=== PATIENT | male | born 1955 | race Caucasian/White ===

== ENCOUNTER 2016-06-24 09:59 | Inpatient (IN) | payer OTHER ==
--- NOTE | 2016-06-24 10:19 | PDOC ---
History of Present Illness - General History Source: Patient Exam Limitations: No Limitations - History of Present Illness Initial Comments: 06/24/16 10:30 The patient is a 60 year old male, with a significant past medical history of DM , HTN, hyperlipidemia, a-fib (on xarelto), CHF, COPD, sleep apnea, and pancreatitis who was sent by his PCP to the emergency department for ongoing chest pain for the past week. The patient ranks his pain a 6/10 in pain intensity. The patient reports his pain is getting progressively worse since its original onset. He also notes feeling short of breath which often gets worse when he ambulates or with much activity. He denies fever, chills, headache and dizziness. Allergies: NKA Social History: Current everyday smoker. Denies EtOH use and drug use. PCP: CARD: <Duane Patel - Last Filed: 06/24/16 13:49> <Angella Gonzalez - Last Filed: 06/24/16 17:29> - General Chief Complaint: Chest Pain Stated Complaint: CHEST PAIN (PCP SENT) Time Seen by Provider: 06/24/16 10:17 Past History <Duane Patel - Last Filed: 06/24/16 13:49> - Past Medical History Anemia: No Asthma: No Cancer: No Cardiac Disorders: Yes (Yes; A-Fib) CVA: No COPD: Yes CHF: No Dementia: No Diabetes: Yes GI Disorders: Yes (gasrtis) Disorders: No HTN: Yes Hypercholesterolemia: Yes Liver Disease: No Seizures: No Thyroid Disease: No - Surgical History Abdominal Surgery: No Appendectomy: No Cardiac Surgery: Yes (Angio-plasty) Cholecystectomy: No Lung Surgery: No Neurologic Surgery: No Orthopedic Surgery: Yes (both feet bone removal) - Immunization History Immunization Up to Date: Yes - Psycho/Social/Smoking Cessation Hx Anxiety: No Suicidal Ideation: No Smoking Status: No Smoking History: Current every day smoker Have you smoked in the past 12 months: Yes Number of Cigarettes Smoked Daily: 18 If you are a former smoker, when did you quit?: On Chantix Information on smoking cessation initiated: Yes 'Breaking Loose' booklet given: 06/24/16 Hx Alcohol Use: No Drug/Substance Use Hx: No Substance Use Type: None Hx Substance Use Treatment: No <Angella Gonzalez - Last Filed: 06/24/16 17:29> - Past Medical History Allergies/Adverse Reactions: Allergies Allergy/AdvReac Type Severity Reaction Status Date / Time No Known Allergies Allergy Verified 06/24/16 10:03 Home Medications: Ambulatory Orders Atorvastatin Ca [Lipitor] 20 mg PO HS 07/28/13 Bupropion HCl [Wellbutrin Xl -] 150 mg PO DAILY 07/28/13 Pantoprazole Sodium [Protonix] 40 mg PO DAILY 07/28/13 Ranolazine [Ranexa -] 1,000 mg PO BID 07/28/13 Rivaroxaban [Xarelto -] 20 mg PO DAILY 07/28/13 Salmeterol/Fluticasone [Advair 250Mcg/50Mcg -] 1 inh PO DAILY 07/28/13 Sotalol HCl [Sotalol] 80 mg PO BID 07/28/13 Tamsulosin HCl 0.4 mg PO DAILY 07/28/13 Trazodone HCl [Desyrel -] 50 mg PO HS 07/28/13 Clobetasol Prop 0.05% Tp Oint [Temovate (Nf)] 60 gm NR DAILY 09/01/14 Insulin Glargine,Hum.rec.anlog [Lantus Solostar PEN -] 50 units SQ AM 09/01/14 Amlodipine Bes/Olmesartan Med [Yamil 5-40 mg Tablet] 1 each PO DAILY 03/15/15 Glipizide/Metformin HCl [Glipizide-Metformin 5-500 mg] 1 each PO TID 03/15/15 Potassium Chloride [K-Dur] 20 meq PO DAILY 03/15/15 Triamcinolone 0.1% Cream [Aristocort] 0 gm TP ASDIR 03/15/15 Valacyclovir HCl [Valtrex -] 500 mg PO ASDIR 03/15/15 Budesonide/Formeterol Fumarate [SYMBICORT 160/4.5mcg -] 2 inh PO BID 06/24/16 Insulin Lispro Protamin/Lispro [Humalog Mix 50-50 Kwikpen] 15 unit SQ TID Review of Systems - Review of Systems Able to Perform ROS?: Yes Comments:: 06/24/16 10:31 GENERAL/CONSTITUTIONAL: No fever or chills. No weakness. HEAD, EYES, EARS, NOSE AND THROAT: No change in vision. No ear pain or discharge. No sore throat. CARDIOVASCULAR: Yes: chest pain and shortness of breath. RESPIRATORY: No cough, wheezing, or hemoptysis. GASTROINTESTINAL: No nausea, vomiting, diarrhea or constipation. GENITOURINARY: No dysuria, frequency, or change in urination. MUSCULOSKELETAL: No joint or muscle swelling or pain. No neck or back pain. SKIN: No rash NEUROLOGIC: No headache, vertigo, loss of consciousness, or change in strength/ sensation. ENDOCRINE: No increased thirst. No abnormal weight change. HEMATOLOGIC/LYMPHATIC: No anemia, easy bleeding, or history of blood clots. ALLERGIC/IMMUNOLOGIC: No hives or skin allergy. <Duane Patel - Last Filed: 06/24/16 13:49> *Physical Exam - Vital Signs Last Vital Signs Temp Pulse Resp BP Pulse Ox 97.6 F 67 18 155/83 96 06/24/16 10:04 06/24/16 10:04 06/24/16 10:04 06/24/16 10:04 06/24/16 10:04 - Physical Exam Comments: 06/24/16 10:31 GENERAL: Obese. Awake, alert, and fully oriented, in no acute distress HEAD: No signs of trauma EYES: PERRLA, EOMI, sclera anicteric, conjunctiva clear ENT: Auricles normal inspection, hearing grossly normal, nares patent, oropharynx clear without exudates. Moist mucosa NECK: Normal ROM, supple, no lymphadenopathy, JVD, or masses LUNGS: Breath sounds equal, clear to auscultation bilaterally. No wheezes, and no crackles HEART: Regular rate and rhythm, normal S1 and S2, no murmurs, rubs or gallops ABDOMEN: Soft, nontender, normoactive bowel sounds. No guarding, no rebound. No masses EXTREMITIES: Normal range of motion, no edema. No clubbing or cyanosis. No cords, erythema, or tenderness NEUROLOGICAL: Cranial nerves II through XII grossly intact. Normal speech, normal gait SKIN: Warm, Dry, normal turgor, no rashes or lesions noted. <Duane Patel - Last Filed: 06/24/16 13:49> - Vital Signs Last Vital Signs Temp Pulse Resp BP Pulse Ox 97.6 F 67 18 155/83 96 06/24/16 10:04 06/24/16 10:04 06/24/16 10:04 06/24/16 10:04 06/24/16 10:04 <Angella Gonzalez - Last Filed: 06/24/16 17:29> ED Treatment Course - LABORATORY CBC & Chemistry Diagram: 06/24/16 10:29 06/24/16 10:29 - RADIOLOGY Radiograph Interpretation: 06/24/16 13:49 CHEST X-RAY impressions reported by : No infiltrates or edema in the lungs-no acute changes noted. <Duane Patel - Last Filed: 06/24/16 13:49> - LABORATORY CBC & Chemistry Diagram: 06/24/16 10:29 06/24/16 10:29 - RADIOLOGY Radiology Studies Ordered: Category Date Time Status CHEST X-RAY PORTABLE* [RAD] Stat Radiology 06/24/16 10:18 Ordered <Angella Gonzalez - Last Filed: 06/24/16 17:29> Medical Decision Making - Medical Decision Making 06/24/16 11:37 Call made to , awaiting call back. 06/24/16 11:41 Call back from , case discussed. 06/24/16 11:41 Call made to will call back. 06/24/16 11:43 Call back from , case discussed. <Duane Patel - Last Filed: 06/24/16 13:49> - Medical Decision Making D/w Dr. High, will evaluate. D/w Dr. Garza, who recommended admission. Dr. Tan will admit for Dr. Raza. <Angella Gonzalez - Last Filed: 06/24/16 17:29> *DC/Admit/Observation/Transfer - Attestations Scribe Attestion: 06/24/16 10:31 Documentation prepared by Duane Patel, acting as healthcare or medical for Angella Gonzalez MD. <Duane Patel - Last Filed: 06/24/16 13:49> - Discharge Dispostion Admit: Yes <Angella Gonzalez - Last Filed: 06/24/16 17:29> Diagnosis at time of Disposition: Chest pain Qualifiers: Chest pain type: unspecified Qualified Code(s): R07.9 - Chest pain, unspecified - Discharge Dispostion Condition at time of disposition: Stable - Referrals
[2016-06-24 10:48] LABS: BASOPHIL 0.9 % (0-2.0); EOSINOPHIL 3.8 % (0-4.5); MCH 31.7 pg (25.7-33.7); MCHC 34.6 g/dl (32.0-35.9); MEAN CELL VOLUME 91.6 fl (80-96); MEAN PLT VOLUME 8.3 fl (7.5-11.1); NEUTROPHILS 61.9 % (42.8-82.8); PLATELET COUNT 192 K/MM3 (134-434); WHITE BLOOD COUNT 8.2 K/mm3 (4.0-10.0)
[2016-06-24 11:22] LABS: ALBUMIN 3.4 g/dl (3.4-5.0); ANION GAP 10 (8-16); CALCIUM 8.9 mg/dL (8.5-10.1); CO2 26 mmol/L (21-32); CREATININE 0.9 mg/dL (0.7-1.3); GLUCOSE,RANDOM 211 mg/dL (74-106); SGOT/AST 15 U/L (15-37); SGPT/ALT 28 U/L (12-78)
[2016-06-24 11:26] LABS: ALK PHOS 102 U/L (45-117); BILIRUBIN,TOTAL 0.4 mg/dL (0.2-1.0); TOT PROT 6.5 g/dl (6.4-8.2); TROPONIN I < 0.02 ng/ml (0.00-0.05)
[2016-06-24 11:48] LABS: INR 1.22 (0.82-1.09); PROTHROMBIN TIME (PATIENT) 13.5 SEC (9.98-11.88)
--- NOTE | 2016-06-24 11:54 | HP ---
Admitting History and Physical - Primary Care Physician PCP: Dirk Garza - Admission Chief Complaint: chest pressure History of Present Illness: The patient is a 60 year old male, with a significant past medical history of DM , HTN, hyperlipidemia, a-fib (on xarelto), CHF, COPD, sleep apnea, and pancreatitis who was sent by his PCP to the emergency department for ongoing chest pain for the past week. The patient ranks his pain a 6/10 in pain intensity. The patient reports his pain is getting progressively worse since its original onset. He also notes feeling short of breath which often gets worse when he ambulates or with much activity. He denies fever, chills, headache and dizziness. per patient he had things to take care of at home so did not come earlier to the ER he denies any nausea vomitting or tachyacardia or dizzines with chest pressure. Allergies: NKA Social History: Current everyday smoker. Denies EtOH use and drug use. PCP: CARD: History Source: Patient - Past Medical History Cardiovascular: Yes: AFIB, HTN, Hyperlipdemia Pulmonary: Yes: COPD Gastrointestinal: Yes: GERD Endocrine: Yes: Diabetes Mellitus - Smoking History Smoking history: Current every day smoker Have you smoked in the past 12 months: Yes Aproximately how many cigarettes per day: 18 If you are a former smoker, when did you quit?: On Chantix - Alcohol/Substance Use Hx Alcohol Use: No Home Medications - Allergies Allergies/Adverse Reactions: Allergies Allergy/AdvReac Type Severity Reaction Status Date / Time No Known Allergies Allergy Verified 06/24/16 10:03 - Home Medications Home Medications: Ambulatory Orders Atorvastatin Ca [Lipitor] 20 mg PO HS 07/28/13 Bupropion HCl [Wellbutrin Xl -] 150 mg PO DAILY 07/28/13 Pantoprazole Sodium [Protonix] 40 mg PO DAILY 07/28/13 Ranolazine [Ranexa -] 1,000 mg PO BID 07/28/13 Rivaroxaban [Xarelto -] 20 mg PO DAILY 07/28/13 Salmeterol/Fluticasone [Advair 250Mcg/50Mcg -] 1 inh PO DAILY 07/28/13 Sotalol HCl [Sotalol] 80 mg PO BID 07/28/13 Tamsulosin HCl 0.4 mg PO DAILY 07/28/13 Trazodone HCl [Desyrel -] 50 mg PO HS 07/28/13 Clobetasol Prop 0.05% Tp Oint [Temovate (Nf)] 60 gm NR DAILY 09/01/14 Insulin Glargine,Hum.rec.anlog [Lantus Solostar PEN -] 50 units SQ AM 09/01/14 Amlodipine Bes/Olmesartan Med [Yamil 5-40 mg Tablet] 1 each PO DAILY 03/15/15 Glipizide/Metformin HCl [Glipizide-Metformin 5-500 mg] 1 each PO TID 03/15/15 Potassium Chloride [K-Dur] 20 meq PO DAILY 03/15/15 Triamcinolone 0.1% Cream [Aristocort] 0 gm TP ASDIR 03/15/15 Valacyclovir HCl [Valtrex -] 500 mg PO ASDIR 03/15/15 Budesonide/Formeterol Fumarate [SYMBICORT 160/4.5mcg -] 2 inh PO BID 06/24/16 Insulin Lispro Protamin/Lispro [Humalog Mix 50-50 Kwikpen] 15 unit SQ TID Family Disease History - Family Disease History Family Disease History: CA: Father (gastric cancer) Review of Systems - Review of Systems Cardiovascular: reports: Chest Pain Physical Examination Vital Signs: Vital Signs Temperature 97.6 F 06/24/16 10:04 Pulse Rate 67 06/24/16 10:04 Respiratory Rate 18 06/24/16 10:04 Blood Pressure 155/83 06/24/16 10:04 O2 Sat by Pulse Oximetry (%) 96 06/24/16 10:04 Constitutional: Yes: Calm Neck: Yes: Trachea Midline Cardiovascular: Yes: Regular Rate and Rhythm, S1, S2 Respiratory: Yes: Wheezes Gastrointestinal: Yes: Soft, Abdomen, Obese Edema: Yes Neurological: Yes: Alert, Oriented Labs: CBC, BMP 06/24/16 10:29 06/24/16 10:29 Problem List - Problems (1) Chest pain Assessment/Plan: tele dr askew CE 3 sets echo will need stress test lipid panel Code(s): R07.9 - CHEST PAIN, UNSPECIFIED Qualifiers: Chest pain type: unspecified Qualified Code(s): R07.9 - Chest pain, unspecified (2) Diabetes Assessment/Plan: hga1c bgm insulin Code(s): E11.9 - TYPE 2 DIABETES MELLITUS WITHOUT COMPLICATIONS Qualifiers: Diabetes mellitus type: type 2 Diabetes mellitus complication status: with hyperglycemia Qualified Code(s): E10.65 - Type 1 diabetes mellitus with hyperglycemia (3) Cough Assessment/Plan: nebulizer robuttisin advair Code(s): R05 - COUGH (4) Depression Assessment/Plan: trazadone wellbutrin Code(s): F32.9 - MAJOR DEPRESSIVE DISORDER, SINGLE EPISODE, UNSPECIFIED (5) BPH (benign prostatic hyperplasia) Assessment/Plan: flomax Code(s): N40.0 - BENIGN PROSTATIC HYPERPLASIA WITHOUT LOWER URINRY TRACT SYMP
[2016-06-24] MEDS ORDERED: guaiFENesin/D-METHORPHAN HB 10 ML UNIT-DOSE CUPS PO PRN (12:32)
[2016-06-24] MEDS ORDERED: ALBUTEROL SO4 0.083% IH SOL 2.5 MG/3 ML VIAL.NEB. NEB PRN (12:32)
[2016-06-24] MEDS: predniSONE 20 MG TABLET (UD) PO SCH (13:21)
--- NOTE | 2016-06-24 15:15 | CON.CARD ---
Consult Consult Specialty:: Cardiology Referred by:: Dr. Gonzalez (ER) Reason for Consultation:: Cardiac evaluation - History of Present Illness Chief Complaint: Chest pain History of Present Illness: Patient is a 60 year old male who is well known to me with underlying history of CAD - non-obstructive, HT, hypercholesterolemia, type 2 diabetes mellitus, paroxysmal atrial fibrillation on Xarelto and history of obstructive sleep apnea. He presents with intermittent chest pressure in left substermal chest wall without radiation of pain. He denies shortness of breath or palpitation. He denies paroxysmal nocturnal dyspnea or orthopnea. Denies fever or chills. Denies headache or lightheadedness. Patient has had cardiac work up in the office which will be reviewed. Cardiology consultation was called for further evaluation. - History Source History Provided By: Patient, Medical Record Limitations to Obtaining History: No Limitations - Past Medical History Cardio/Vascular: Yes: AFIB, CAD (Non-obstructive), HTN, Hyperlipdemia Pulmonary: Yes: COPD, Sleep Apnea Gastrointestinal: Yes: GERD Endocrine: Yes: Diabetes Mellitus - Past Surgical History Past Surgical History: Yes: Tonsillectomy Additional Surgical History: Surgery for deviated septum. Surgery on both feet - Alcohol/Substance Use Hx Alcohol Use: Yes - Smoking History Smoking history: Current every day smoker Have you smoked in the past 12 months: Yes Aproximately how many cigarettes per day: 18 If you are a former smoker, when did you quit?: Previously took Chantix Home Medications - Allergies Allergies/Adverse Reactions: Allergies Allergy/AdvReac Type Severity Reaction Status Date / Time No Known Allergies Allergy Verified 06/24/16 10:03 - Home Medications Home Medications: Ambulatory Orders Atorvastatin Ca [Lipitor] 20 mg PO HS 07/28/13 Bupropion HCl [Wellbutrin Xl -] 150 mg PO DAILY 07/28/13 Pantoprazole Sodium [Protonix] 40 mg PO DAILY 07/28/13 Ranolazine [Ranexa -] 1,000 mg PO BID 07/28/13 Rivaroxaban [Xarelto -] 20 mg PO DAILY 07/28/13 Salmeterol/Fluticasone [Advair 250Mcg/50Mcg -] 1 inh PO DAILY 07/28/13 Sotalol HCl [Sotalol] 80 mg PO BID 07/28/13 Tamsulosin HCl 0.4 mg PO DAILY 07/28/13 Trazodone HCl [Desyrel -] 50 mg PO HS 07/28/13 Clobetasol Prop 0.05% Tp Oint [Temovate (Nf)] 60 gm NR DAILY 09/01/14 Insulin Glargine,Hum.rec.anlog [Lantus Solostar PEN -] 50 units SQ AM 09/01/14 Amlodipine Bes/Olmesartan Med [Yamil 5-40 mg Tablet] 1 each PO DAILY 03/15/15 Glipizide/Metformin HCl [Glipizide-Metformin 5-500 mg] 1 each PO TID 03/15/15 Potassium Chloride [K-Dur] 20 meq PO DAILY 03/15/15 Triamcinolone 0.1% Cream [Aristocort] 0 gm TP ASDIR 03/15/15 Valacyclovir HCl [Valtrex -] 500 mg PO ASDIR 03/15/15 Budesonide/Formeterol Fumarate [SYMBICORT 160/4.5mcg -] 2 inh PO BID 06/24/16 Insulin Lispro Protamin/Lispro [Humalog Mix 50-50 Kwikpen] 15 unit SQ TID Family Disease History - Family Disease History Family Disease History: CA: Father (gastric cancer) Review of Systems - Review of Systems Constitutional: denies: Chills, Fever Cardiovascular: reports: Chest Pain. denies: Palpitations, Shortness of Breath Respiratory: denies: Cough, Hemoptysis, Orthopnea, PND, SOB Gastrointestinal: denies: Abdominal Pain, Constipation, Diarrhea, Melena, Nausea , Rectal Bleeding, Vomiting Genitourinary: denies: Dysuria Musculoskeletal: denies: Joint Pain Neurological: denies: Dizziness, Headache, Seizure, Syncope Vital Signs: Vital Signs Temperature 97.6 F 06/24/16 10:04 Pulse Rate 67 06/24/16 10:04 Respiratory Rate 18 06/24/16 10:04 Blood Pressure 155/83 06/24/16 10:04 O2 Sat by Pulse Oximetry (%) 96 06/24/16 10:04 Neck: Yes: Supple Respiratory: Yes: CTA Bilaterally Gastrointestinal: Yes: Normal Bowel Sounds, Soft. No: Tenderness Cardiovascular: Yes: Regular Rate and Rhythm. No: Gallop JVD: No Carotid Bruit: No PMI: Non-Displaced Heart Sounds: Yes: S1, S2 Edema: No - Other Data Labs, Other Data: INR, PTT INR 1.22 (0.82-1.09) H 06/24/16 10:29 Laboratory Results - last 24 hr 06/24/16 06/24/16 06/24/16 10:29 10:29 10:29 WBC 8.2 RBC 4.42 Hgb 14.0 Hct 40.5 MCV 91.6 MCHC 34.6 RDW 13.0 Plt Count 192 MPV 8.3 Neutrophils % 61.9 Lymphocytes % 25.6 Monocytes % 7.8 Eosinophils % 3.8 Basophils % 0.9 INR 1.22 H Sodium 139 Potassium 3.5 Chloride 103 Carbon Dioxide 26 Anion Gap 10 BUN 11 D Creatinine 0.9 D Creat Clearance w eGFR > 60 Random Glucose 211 H Calcium 8.9 Total Bilirubin 0.4 D AST 15 ALT 28 Alkaline Phosphatase 102 Creatine Kinase 139 Troponin I < 0.02 Total Protein 6.5 Albumin 3.4 Sinus rhythm with nonspecific intraventricular conduction delay Echo: Pending Prior Cardiac Procedures: Cardiac Catheterization Ejection Fraction %: LVEF > or = 40 % Imaging - Results Chest X-ray: Report Reviewed (Unremarkable) EKG: Report Reviewed Problem List - Problems (1) Chest pain Code(s): R07.9 - CHEST PAIN, UNSPECIFIED Qualifiers: Chest pain type: unspecified Qualified Code(s): R07.9 - Chest pain, unspecified (2) Diabetes Code(s): E11.9 - TYPE 2 DIABETES MELLITUS WITHOUT COMPLICATIONS Qualifiers: Diabetes mellitus type: type 2 Diabetes mellitus complication status: with hyperglycemia Qualified Code(s): E10.65 - Type 1 diabetes mellitus with hyperglycemia (3) CAD (coronary artery disease) Code(s): I25.10 - ATHSCL HEART DISEASE OF [place] CORONARY ARTERY W/O ANG PCTRS Qualifiers: Coronary Disease-Associated Artery/Lesion type: [place] artery [place] vs. transplanted heart: [place] heart Associated angina: angina presence unspecified Qualified Code(s): I25.10 - Atherosclerotic heart disease of [place] coronary artery without angina pectoris (4) HTN (hypertension) Code(s): I10 - ESSENTIAL (PRIMARY) HYPERTENSION Qualifiers: Hypertension type: essential hypertension Qualified Code(s): I10 - Essential (primary) hypertension (5) Hypercholesterolemia Code(s): E78.0 - PURE HYPERCHOLESTEROLEMIA * DO NOT USE * (6) Atrial fibrillation Code(s): I48.91 - UNSPECIFIED ATRIAL FIBRILLATION Qualifiers: Atrial fibrillation type: paroxysmal Qualified Code(s): I48.0 - Paroxysmal atrial fibrillation (7) Sleep apnea Code(s): G47.30 - SLEEP APNEA, UNSPECIFIED Qualifiers: Sleep apnea type: obstructive Qualified Code(s): G47.33 - Obstructive sleep apnea (adult) (pediatric) Assessment/Plan 1. Chest pain syndrome with underlying non-obstructive CAD 2. HTN 3. Hypercholesterolemia 4. Type 2 diabes mellitus 5. OSAS 6. Paroxysmal atrial fibrillation 7. Exogenous obesity PLAN: 1. Continue Xarelto 20 mg QD 2. Continue Sotalol 80 mg BID as tolerated 3. Continue Yamil 10/20 mg QD or equivalent 4. Continue Ranexa 1000 mg BID 5. Continue Lipitor 40 mg QHS 6. Continue Furosemide 60 mg QD 7. Transthoracic echocardiography is to be repeated (last study 07/20/2015 in the office showed normal left ventricular systolic function, mild MR, TR, SD and mild concentric LVH) 8. Review office records and prior testings and further plans are to follow. Serial cardiac enzymes to be checked. Further plans are to follow Harsha High MD
--- NOTE | 2016-06-24 15:25 | CONSULT ---
Consult Consult Specialty:: PULM/CCM Referred by:: JAME Reason for Consultation:: SOB / CP / OSAS - History of Present Illness Chief Complaint: CP / SOB History of Present Illness: 60 M, with listed medical history. URI symptoms over the past several days. Cough/congestion. No outpatient ABX. No travel history or sick contacts. No fever or chills. Initial CE are (-). NPSG in 2012 revealed severe OSAS : AHI 36.7 and RDI 69.5. He was titrated effectively on CPAP @ 14 cm H2O. Patient is an active smoker and was previously prescibed Advair by his Entry Tech Dr Velasquez in [place]. - History Source History Provided By: Patient Limitations to Obtaining History: No Limitations - Past Medical History Cardio/Vascular: Yes: AFIB, CAD (Non-obstructive), HTN, Hyperlipdemia Pulmonary: Yes: COPD, Sleep Apnea Gastrointestinal: Yes: GERD Endocrine: Yes: Diabetes Mellitus - Past Surgical History Additional Surgical History: Surgery for deviated septum. Surgery on both feet - Alcohol/Substance Use Hx Alcohol Use: No - Smoking History Smoking history: Current every day smoker Have you smoked in the past 12 months: Yes Aproximately how many cigarettes per day: 18 If you are a former smoker, when did you quit?: On Chantix Home Medications - Allergies Allergies/Adverse Reactions: Allergies Allergy/AdvReac Type Severity Reaction Status Date / Time No Known Allergies Allergy Verified 06/24/16 10:03 - Home Medications Home Medications: Ambulatory Orders Atorvastatin Ca [Lipitor] 20 mg PO HS 07/28/13 Bupropion HCl [Wellbutrin Xl -] 150 mg PO DAILY 07/28/13 Pantoprazole Sodium [Protonix] 40 mg PO DAILY 07/28/13 Ranolazine [Ranexa -] 1,000 mg PO BID 07/28/13 Rivaroxaban [Xarelto -] 20 mg PO DAILY 07/28/13 Salmeterol/Fluticasone [Advair 250Mcg/50Mcg -] 1 inh PO DAILY 07/28/13 Sotalol HCl [Sotalol] 80 mg PO BID 07/28/13 Tamsulosin HCl 0.4 mg PO DAILY 07/28/13 Trazodone HCl [Desyrel -] 50 mg PO HS 07/28/13 Clobetasol Prop 0.05% Tp Oint [Temovate (Nf)] 60 gm NR DAILY 09/01/14 Insulin Glargine,Hum.rec.anlog [Lantus Solostar PEN -] 50 units SQ AM 09/01/14 Amlodipine Bes/Olmesartan Med [Yamil 5-40 mg Tablet] 1 each PO DAILY 03/15/15 Glipizide/Metformin HCl [Glipizide-Metformin 5-500 mg] 1 each PO TID 03/15/15 Potassium Chloride [K-Dur] 20 meq PO DAILY 03/15/15 Triamcinolone 0.1% Cream [Aristocort] 0 gm TP ASDIR 03/15/15 Valacyclovir HCl [Valtrex -] 500 mg PO ASDIR 03/15/15 Budesonide/Formeterol Fumarate [SYMBICORT 160/4.5mcg -] 2 inh PO BID 06/24/16 Insulin Lispro Protamin/Lispro [Humalog Mix 50-50 Kwikpen] 15 unit SQ TID Family Disease History - Family Disease History Family Disease History: CA: Father (gastric cancer) Review of Systems - Review of Systems Constitutional: reports: Malaise, Weakness. denies: Chills, Fever, Night Sweats , Unintentional Wgt. Loss Eyes: reports: No Symptoms HENT: reports: No Symptoms Neck: reports: No Symptoms Cardiovascular: reports: Chest Pain, Shortness of Breath. denies: Edema, Palpitations Respiratory: reports: Cough, Snoring, SOB, SOB on Exertion, Wheezing. denies: Hemoptysis Gastrointestinal: reports: No Symptoms Genitourinary: reports: No Symptoms Breasts: reports: No Symptoms Reported Musculoskeletal: reports: No Symptoms Integumentary: reports: No Symptoms Neurological: reports: No Symptoms Endocrine: reports: No Symptoms Hematology/Lymphatic: reports: No Symptoms Psychiatric: reports: No Symptoms Physical Exam Vital Signs: Vital Signs Temperature 97.6 F 06/24/16 10:04 Pulse Rate 67 06/24/16 10:04 Respiratory Rate 18 06/24/16 10:04 Blood Pressure 155/83 06/24/16 10:04 O2 Sat by Pulse Oximetry (%) 96 06/24/16 10:04 Constitutional: Yes: No Distress, Obese Eyes: Yes: Conjunctiva Clear, EOM Intact HENT: Yes: Atraumatic, Normocephalic Neck: Yes: Supple, Trachea Midline Cardiovascular: Yes: Regular Rate and Rhythm Respiratory: Yes: Cough, Diminished, Rhonchi, Wheezes. No: Accessory Muscle Use , Rales, Stridor, Tachypnea Gastrointestinal: Yes: Normal Bowel Sounds, Soft, Abdomen, Obese ...Rectal Exam: Yes: Deferred Renal/: Yes: WNL Breast(s): Yes: WNL Musculoskeletal: Yes: WNL Extremities: Yes: WNL Edema: No Peripheral Pulses WNL: Yes Integumentary: Yes: WNL Neurological: Yes: Alert, Oriented ...Motor Strength: WNL Psychiatric: Yes: WNL, Alert, Oriented Imaging - Results Chest X-ray: Report Reviewed, Image Reviewed Assessment/Plan IMP: AE of COPD Active smoker Severe OSAS on CPAP @ 14 cm H2O Suspected component of Costochondritis Do not suspect PNA Above history PLAN: Agree with Prednisone course -> If he worsens can change to Medrol O2 as needed CPAP 2 14 cm H2O ordered No smoking reenforced BD TX VTE prophylaxis Cardiac workup per Cardiology Monitor off ABX Will follow Thank you. Dr León
[2016-06-24 15:37] LABS: TROPONIN I < 0.02 ng/ml (0.00-0.05)
--- NOTE | 2016-06-24 15:38 | EKG ---
Test Reason : Blood Pressure : / mmHG Vent. Rate : 064 BPM Atrial Rate : 064 BPM P-R Int : 170 ms QRS Dur : 128 ms QT Int : 438 ms P-R-T Axes : -23 068 018 degrees QTc Int : 451 ms NORMAL SINUS RHYTHM NON-SPECIFIC INTRA-VENTRICULAR CONDUCTION BLOCK CANNOT RULE OUT SEPTAL INFARCT , AGE UNDETERMINED ABNORMAL ECG WHEN COMPARED WITH ECG OF 24-JUN-2016 10:06, NO SIGNIFICANT CHANGE WAS FOUND Confirmed by DRAKE STRICKLAND, KEYSHA ([id number]) on 06/24/2016 3:38:00 PM Referred By: Confirmed By:KEYSHA JUAN MD
[2016-06-24 16:26] VITALS: BMI 36.6
[2016-06-24] MEDS: glipiZIDE 5 MG TABLET (FP) PO SCH (17:00)
[2016-06-24] MEDS: ALBUTEROL SO4 0.083% IH SOL 2.5 MG/3 ML VIAL.NEB. NEB SCH (21:53)
[2016-06-24] MEDS: ATORVASTATIN CA 20 MG TABLET (FP) PO SCH (22:36)
[2016-06-24] MEDS: FLUTICASONE/SALMETEROL 100 MCG/50 MCG DISKUS IH SCH (22:36)
[2016-06-24] MEDS: traZODone HCL 50 MG TABLET (FP) PO SCH (22:36)
[2016-06-24] MEDS: SOTALOL HCL 80 MG TABLET (FP) PO SCH (22:36)
[2016-06-24] MEDS: RANOLAZINE E.R. 500 MG TABLET (FP) PO SCH (22:36)
--- NOTE | 2016-06-24 23:13 | CONSULT ---
Consult Consult Specialty:: ENDOCRINE\ Referred by:: DR.SABA HOLLAND Reason for Consultation:: IDDM UNCONTROLLES - History of Present Illness Chief Complaint: HIGH SUGARS History of Present Illness: 60 year old male, with a significant past medical history of DM, HTN, hyperlipidemia, a-fib (on xarelto), CHF, COPD, sleep apnea, and pancreatitis who was sent by his PCP to the emergency department for ongoing chest pain for the past week. The patient ranks his pain a 6/10 in pain intensity has elevated blood sugars frequent urination,and radha gain,denies hypoglycemia - History Source History Provided By: Patient Limitations to Obtaining History: Clinical Condition - Past Medical History Cardio/Vascular: Yes: AFIB, CAD (Non-obstructive), HTN, Hyperlipdemia Pulmonary: Yes: COPD, Sleep Apnea Gastrointestinal: Yes: GERD Endocrine: Yes: Diabetes Mellitus - Past Surgical History Past Surgical History: Yes: Tonsillectomy Additional Surgical History: Surgery for deviated septum. Surgery on both feet - Alcohol/Substance Use Hx Alcohol Use: No - Smoking History Smoking history: Current every day smoker Have you smoked in the past 12 months: Yes Aproximately how many cigarettes per day: 18 If you are a former smoker, when did you quit?: On Chantix Home Medications - Allergies Allergies/Adverse Reactions: Allergies Allergy/AdvReac Type Severity Reaction Status Date / Time No Known Allergies Allergy Verified 06/24/16 10:03 - Home Medications Home Medications: Ambulatory Orders Atorvastatin Ca [Lipitor] 20 mg PO HS 07/28/13 Bupropion HCl [Wellbutrin Xl -] 150 mg PO DAILY 07/28/13 Pantoprazole Sodium [Protonix] 40 mg PO DAILY 07/28/13 Ranolazine [Ranexa -] 1,000 mg PO BID 07/28/13 Rivaroxaban [Xarelto -] 20 mg PO DAILY 07/28/13 Salmeterol/Fluticasone [Advair 250Mcg/50Mcg -] 1 inh PO DAILY 07/28/13 Sotalol HCl [Sotalol] 80 mg PO BID 07/28/13 Tamsulosin HCl 0.4 mg PO DAILY 07/28/13 Trazodone HCl [Desyrel -] 50 mg PO HS 07/28/13 Clobetasol Prop 0.05% Tp Oint [Temovate (Nf)] 60 gm NR DAILY 09/01/14 Insulin Glargine,Hum.rec.anlog [Lantus Solostar PEN -] 50 units SQ AM 09/01/14 Amlodipine Bes/Olmesartan Med [Yamil 5-40 mg Tablet] 1 each PO DAILY 03/15/15 Glipizide/Metformin HCl [Glipizide-Metformin 5-500 mg] 1 each PO TID 03/15/15 Potassium Chloride [K-Dur] 20 meq PO DAILY 03/15/15 Triamcinolone 0.1% Cream [Aristocort] 0 gm TP ASDIR 03/15/15 Valacyclovir HCl [Valtrex -] 500 mg PO ASDIR 03/15/15 Budesonide/Formeterol Fumarate [SYMBICORT 160/4.5mcg -] 2 inh PO BID 06/24/16 Insulin Lispro Protamin/Lispro [Humalog Mix 50-50 Kwikpen] 15 unit SQ TID Family Disease History - Family Disease History Family Disease History: CA: Father (gastric cancer) Review of Systems - Review of Systems Constitutional: reports: Malaise, Weakness HENT: reports: No Symptoms Neck: reports: No Symptoms Cardiovascular: reports: Shortness of Breath Respiratory: reports: Exercise Intolerance, SOB on Exertion Gastrointestinal: reports: No Symptoms, Bloating Genitourinary: reports: No Symptoms Breasts: reports: No Symptoms Reported Musculoskeletal: reports: Muscle Pain, Muscle Cramps, Muscle Weakness Integumentary: reports: No Symptoms Neurological: reports: Weakness Endocrine: reports: Unexplained Weight Gain Hematology/Lymphatic: reports: No Symptoms Physical Exam Vital Signs: Vital Signs Temperature 98.0 F 06/24/16 17:00 Pulse Rate 57 L 06/24/16 17:00 Respiratory Rate 16 06/24/16 21:00 Blood Pressure 149/65 06/24/16 17:00 O2 Sat by Pulse Oximetry (%) 97 06/24/16 21:00 Constitutional: Yes: Anxious Eyes: Yes: EOM Intact HENT: Yes: Normocephalic Neck: Yes: Trachea Midline Cardiovascular: Yes: Tachycardia Respiratory: Yes: SOB, Wheezes Gastrointestinal: Yes: Normal Bowel Sounds ...Rectal Exam: Yes: Deferred Renal/: Yes: WNL Breast(s): Yes: WNL Musculoskeletal: Yes: Muscle Pain Extremities: Yes: WNL Edema: Yes Edema: LLE: Trace, RLE: 1+ Neurological: Yes: Alert, Oriented, Numbness Problem List - Problems (1) Diabetes mellitus, insulin dependent (IDDM), uncontrolled Code(s): E10.65 - TYPE 1 DIABETES MELLITUS WITH HYPERGLYCEMIA Qualifiers: Diabetes mellitus complication status: with neurologic complications Diabetes mellitus complication detail: with polyneuropathy Qualified Code (s): E10.42 - Type 1 diabetes mellitus with diabetic polyneuropathy; E10.65 - Type 1 diabetes mellitus with hyperglycemia Assessment/Plan Current Active Problems Atrial fibrillation (Acute) BPH (benign prostatic hyperplasia) (Acute) CAD (coronary artery disease) (Acute) Chest pain (Acute) Cough (Acute) Depression (Acute) HTN (hypertension) (Acute) Hypercholesterolemia (Acute) Sleep apnea (Acute) iddm uncontrolled hyperglycemia insulin resistance copd exarcerbation: Abnormal Lab Results 06/24/16 06/24/16 10:29 10:29 INR 1.22 H Random Glucose 211 H Laboratory Results - last 24 hr 06/24/16 06/24/16 06/24/16 10:29 10:29 10:29 WBC 8.2 RBC 4.42 Hgb 14.0 Hct 40.5 MCV 91.6 MCHC 34.6 RDW 13.0 Plt Count 192 MPV 8.3 Neutrophils % 61.9 Lymphocytes % 25.6 Monocytes % 7.8 Eosinophils % 3.8 Basophils % 0.9 INR 1.22 H Sodium 139 Potassium 3.5 Chloride 103 Carbon Dioxide 26 Anion Gap 10 BUN 11 D Creatinine 0.9 D Creat Clearance w eGFR > 60 POC Glucometer Random Glucose 211 H Calcium 8.9 Total Bilirubin 0.4 D AST 15 ALT 28 Alkaline Phosphatase 102 Creatine Kinase 139 Troponin I < 0.02 Total Protein 6.5 Albumin 3.4 06/24/16 06/24/16 14:30 15:59 WBC RBC Hgb Hct MCV MCHC RDW Plt Count MPV Neutrophils % Lymphocytes % Monocytes % Eosinophils % Basophils % INR Sodium Potassium Chloride Carbon Dioxide Anion Gap BUN Creatinine Creat Clearance w eGFR POC Glucometer 170 Random Glucose Calcium Total Bilirubin AST ALT Alkaline Phosphatase Creatine Kinase 116 Troponin I < 0.02 Total Protein Albumin Current Medications Generic Name Dose Route Start Last Admin Trade Name Freq PRN Reason Stop Dose Admin Albuterol Sulfate 1 amp 06/24/16 12:32 Ventolin 0.083% Nebulizer Soln - NEB Q4H PRN SHORT OF BREATH/WHEEZING Albuterol Sulfate 1 amp 06/24/16 22:00 06/24/16 21:53 Ventolin 0.083% Nebulizer Soln - NEB 1 amp TID DOUGLAS Administration Amlodipine Besylate 10 mg 06/25/16 10:00 Norvasc - PO DAILY DOUGLAS Atorvastatin Calcium 20 mg 06/24/16 22:00 06/24/16 22:36 Lipitor - PO 20 mg HS DOUGLAS Administration Bupropion HCl 150 mg 06/25/16 10:00 Wellbutrin Xl - PO DAILY [facility] Glipizide 5 mg 06/24/16 16:30 06/24/16 17:00 Glucotrol - PO 5 mg BID@0700,1630 [facility] Administration Guaifenesin 10 ml 06/24/16 12:32 Robitussin Dm - PO Q4H PRN COUGH Insulin Detemir 30 units 06/25/16 07:00 Levemir Vial SQ AM [facility] Pantoprazole Sodium 40 mg 06/25/16 10:00 Protonix - PO DAILY [facility] Prednisone 40 mg 06/24/16 12:45 06/24/16 13:21 Deltasone - PO 06/26/16 12:44 40 mg DAILY [facility] Administration Ranolazine 500 mg 06/24/16 22:00 06/24/16 22:36 Ranexa - PO 500 mg BID DOUGLAS Administration Rivaroxaban 20 mg 06/25/16 10:00 Xarelto - PO DAILY [facility] Fluticasone/Salmeterol 2 puff 06/24/16 22:00 06/24/16 22:36 Advair 100mcg/50mcg - IH 2 puff BID [facility] Administration Sotalol HCl 80 mg 06/24/16 22:00 06/24/16 22:36 Betapace - PO 80 mg BID [facility] Administration Tamsulosin HCl 0.4 mg 06/25/16 08:30 Flomax - PO DAILY@0830 [facility] Trazodone HCl 50 mg 06/24/16 22:00 06/24/16 22:36 Desyrel - PO 50 mg HS DOUGLAS Administration BGM qid novolog coverage\ levemir 30 unis am daily continue with po prednisone \ pulmonary consult appreciated\ nutrition consult requested
[2016-06-25] MEDS: ALBUTEROL SO4 0.083% IH SOL 2.5 MG/3 ML VIAL.NEB. NEB SCH ×3 (06:15→23:24)
[2016-06-25] MEDS: glipiZIDE 5 MG TABLET (FP) PO SCH ×2 (06:16→17:16)
[2016-06-25] MEDS: INSULIN DETEMIR 100 UNITS/ML MDV SQ SCH (06:16)
--- NOTE | 2016-06-25 08:03 | EKG ---
Test Reason : Blood Pressure : / mmHG Vent. Rate : 067 BPM Atrial Rate : 067 BPM P-R Int : 174 ms QRS Dur : 130 ms QT Int : 442 ms P-R-T Axes : -01 064 035 degrees QTc Int : 467 ms NORMAL SINUS RHYTHM NON-SPECIFIC INTRA-VENTRICULAR CONDUCTION BLOCK ABNORMAL ECG WHEN COMPARED WITH ECG OF 08-AUG-2015 09:18, PREMATURE ATRIAL COMPLEXES ARE NO LONGER PRESENT Confirmed by DRAKE STRICKLAND, KEYSHA ([id number]) on 06/24/2016 3:38:15 PM Referred By: Confirmed By:KEYSHA JUAN MD
[2016-06-25 08:14] LABS: BASOPHIL 0.7 % (0-2.0); EOSINOPHIL 1.1 % (0-4.5); MCH 31.8 pg (25.7-33.7); MCHC 34.5 g/dl (32.0-35.9); MEAN CELL VOLUME 92.2 fl (80-96); MEAN PLT VOLUME 8.8 fl (7.5-11.1); NEUTROPHILS 63.9 % (42.8-82.8); PLATELET COUNT 196 K/MM3 (134-434); RDW 13.3 % (11.9-15.9); WHITE BLOOD COUNT 10.5 K/mm3 (4.0-10.0)
[2016-06-25 09:20] LABS: ALBUMIN 3.1 g/dl (3.4-5.0); ANION GAP 7 (8-16); CALCIUM 9.1 mg/dL (8.5-10.1); CO2 29 mmol/L (21-32); MAGNESIUM 2.1 mg/dL (1.8-2.4)
[2016-06-25] MEDS: amLODIPine BESYLATE 10 MG TABLET (FP) PO SCH (09:31)
[2016-06-25] MEDS: SOTALOL HCL 80 MG TABLET (FP) PO SCH ×2 (09:31→22:25)
[2016-06-25] MEDS: TAMSULOSIN HCL 0.4 MG CAP.ER.24H (FP) PO SCH (09:31)
[2016-06-25] MEDS: predniSONE 20 MG TABLET (UD) PO SCH (09:31)
[2016-06-25] MEDS: RANOLAZINE E.R. 500 MG TABLET (FP) PO SCH ×2 (09:32→22:25)
[2016-06-25] MEDS: RIVAROXABAN 20 MG TABLET PO SCH (09:32)
[2016-06-25] MEDS: PANTOPRAZOLE 40 MG TABLET (FP) PO SCH (09:32)
--- NOTE | 2016-06-25 09:32 | PN ---
Progress Note, Physician History of Present Illness: no cp - Current Medication List Current Medications: Active Medications Albuterol Sulfate (Ventolin 0.083% Nebulizer Soln -) 1 amp NEB Q4H PRN PRN Reason: SHORT OF BREATH/WHEEZING Albuterol Sulfate (Ventolin 0.083% Nebulizer Soln -) 1 amp NEB TID [facility] Last Admin: 06/25/16 06:15 Dose: 1 amp Amlodipine Besylate (Norvasc -) 10 mg PO DAILY [facility] Atorvastatin Calcium (Lipitor -) 20 mg PO HS [facility] Last Admin: 06/24/16 22:36 Dose: 20 mg Bupropion HCl (Wellbutrin Xl -) 150 mg PO DAILY [facility] Glipizide (Glucotrol -) 5 mg PO BID@0700,1630 [facility] Last Admin: 06/25/16 06:16 Dose: 5 mg Guaifenesin (Robitussin Dm -) 10 ml PO Q4H PRN PRN Reason: COUGH Insulin Detemir (Levemir Vial) 30 units SQ AM [facility] Last Admin: 06/25/16 06:16 Dose: 30 units Pantoprazole Sodium (Protonix -) 40 mg PO DAILY [facility] Prednisone (Deltasone -) 40 mg PO DAILY [facility] Stop: 06/26/16 12:44 Last Admin: 06/24/16 13:21 Dose: 40 mg Ranolazine (Ranexa -) 500 mg PO BID [facility] Last Admin: 06/24/16 22:36 Dose: 500 mg Rivaroxaban (Xarelto -) 20 mg PO DAILY [facility] Fluticasone/Salmeterol (Advair 100mcg/50mcg -) 2 puff IH BID [facility] Last Admin: 06/24/16 22:36 Dose: 2 puff Sotalol HCl (Betapace -) 80 mg PO BID [facility] Last Admin: 06/24/16 22:36 Dose: 80 mg Tamsulosin HCl (Flomax -) 0.4 mg PO DAILY@0830 [facility] Trazodone HCl (Desyrel -) 50 mg PO [facility] Last Admin: 06/24/16 22:36 Dose: 50 mg - Objective Vital Signs: Vital Signs Temperature 98.8 F 06/25/16 06:11 Pulse Rate 52 L 06/25/16 06:11 Respiratory Rate 16 06/25/16 06:11 Blood Pressure 125/59 06/25/16 06:11 O2 Sat by Pulse Oximetry (%) 96 06/25/16 02:00 Neck: Yes: Supple Cardiovascular: Yes: Regular Rate and Rhythm, Murmur Respiratory: Yes: Regular, CTA Bilaterally Gastrointestinal: Yes: Normal Bowel Sounds, Soft Labs: CBC, BMP 06/25/16 05:38 INR, PTT INR 1.22 (0.82-1.09) H 06/24/16 10:29 Assessment/Plan - Problems (1) Chest pain Assessment/Plan: h/o cad tele dr askew on consult CE 3 sets echo ---dilated aortic root may need stress test lipid panel Code(s): R07.9 - CHEST PAIN, UNSPECIFIED Qualifiers: Chest pain type: unspecified Qualified Code(s): R07.9 - Chest pain, unspecified (2) Diabetes Assessment/Plan: hga1c bgm insulin Code(s): E11.9 - TYPE 2 DIABETES MELLITUS WITHOUT COMPLICATIONS Qualifiers: Diabetes mellitus type: type 2 Diabetes mellitus complication status: with hyperglycemia Qualified Code(s): E10.65 - Type 1 diabetes mellitus with hyperglycemia (3) Cough Assessment/Plan: nebulizer advair Code(s): R05 - COUGH (4) Depression Assessment/Plan: trazadone wellbutrin Code(s): F32.9 - MAJOR DEPRESSIVE DISORDER, SINGLE EPISODE, UNSPECIFIED (5) BPH (benign prostatic hyperplasia) Assessment/Plan: flomax Code(s): N40.0 - BENIGN PROSTATIC HYPERPLASIA WITHOUT LOWER URINRY TRACT SYMP (6) Dilated Aortic Root Assessment/Plan: ct scan of chest
[2016-06-25 09:33] LABS: ALK PHOS 92 U/L (45-117); BILIRUBIN,TOTAL 0.4 mg/dL (0.2-1.0); CHOLESTEROL 190 mg/dL (50-200); CREATININE 0.8 mg/dL (0.7-1.3); GLUCOSE,RANDOM 170 mg/dL (74-106); LDL CHOLESTEROL (ONLY SJRH) 132 mg/dL (5-100); PHOSPHOROUS 3.1 mg/dL (2.5-4.9); SGOT/AST 10 U/L (15-37); SGPT/ALT 26 U/L (12-78); TROPONIN I < 0.02 ng/ml (0.00-0.05)
[2016-06-25] MEDS: FLUTICASONE/SALMETEROL 100 MCG/50 MCG DISKUS IH SCH ×2 (09:38→22:27)
--- NOTE | 2016-06-25 10:47 | PN ---
Progress Note, Physician History of Present Illness: No further chest discomfort, states that sxs were not exertional and were improved with palpation. - Current Medication List Current Medications: Active Medications Albuterol Sulfate (Ventolin 0.083% Nebulizer Soln -) 1 amp NEB Q4H PRN PRN Reason: SHORT OF BREATH/WHEEZING Albuterol Sulfate (Ventolin 0.083% Nebulizer Soln -) 1 amp NEB TID [facility] Last Admin: 06/25/16 06:15 Dose: 1 amp Amlodipine Besylate (Norvasc -) 10 mg PO DAILY [facility] Last Admin: 06/25/16 09:31 Dose: 10 mg Atorvastatin Calcium (Lipitor -) 20 mg PO HS [facility] Last Admin: 06/24/16 22:36 Dose: 20 mg Bupropion HCl (Wellbutrin Xl -) 150 mg PO DAILY [facility] Last Admin: 06/25/16 10:20 Dose: 150 mg Glipizide (Glucotrol -) 5 mg PO BID@0700,1630 [facility] Last Admin: 06/25/16 06:16 Dose: 5 mg Guaifenesin (Robitussin Dm -) 10 ml PO Q4H PRN PRN Reason: COUGH Insulin Detemir (Levemir Vial) 30 units SQ AM [facility] Last Admin: 06/25/16 06:16 Dose: 30 units Pantoprazole Sodium (Protonix -) 40 mg PO DAILY [facility] Last Admin: 06/25/16 09:32 Dose: 40 mg Prednisone (Deltasone -) 40 mg PO DAILY [facility] Stop: 06/26/16 12:44 Last Admin: 06/25/16 09:31 Dose: 40 mg Ranolazine (Ranexa -) 500 mg PO BID [facility] Last Admin: 06/25/16 09:32 Dose: 500 mg Rivaroxaban (Xarelto -) 20 mg PO DAILY [facility] Last Admin: 06/25/16 09:32 Dose: 20 mg Fluticasone/Salmeterol (Advair 100mcg/50mcg -) 2 puff IH BID [facility] Last Admin: 06/25/16 09:38 Dose: 2 puff Sotalol HCl (Betapace -) 80 mg PO BID [facility] Last Admin: 06/25/16 09:31 Dose: 80 mg Tamsulosin HCl (Flomax -) 0.4 mg PO DAILY@0830 [facility] Last Admin: 06/25/16 09:31 Dose: 0.4 mg Trazodone HCl (Desyrel -) 50 mg PO HS [facility] Last Admin: 06/24/16 22:36 Dose: 50 mg - Objective Vital Signs: Vital Signs Temperature 98.8 F 06/25/16 06:11 Pulse Rate 52 L 06/25/16 06:11 Respiratory Rate 16 06/25/16 06:11 Blood Pressure 125/59 06/25/16 06:11 O2 Sat by Pulse Oximetry (%) 96 06/25/16 02:00 Constitutional: Yes: No Distress, Calm Neck: Yes: Supple Cardiovascular: Yes: Regular Rate and Rhythm Respiratory: Yes: Regular, CTA Bilaterally Gastrointestinal: Yes: Normal Bowel Sounds, Soft, Abdomen, Obese Edema: No Labs: CBC, BMP 06/25/16 05:38 06/25/16 05:38 INR, PTT INR 1.22 (0.82-1.09) H 06/24/16 10:29 - ....Imaging EKG: Report Reviewed (Tele: SR) Problem List - Problems (1) Atrial fibrillation Code(s): I48.91 - UNSPECIFIED ATRIAL FIBRILLATION Qualifiers: Atrial fibrillation type: paroxysmal Qualified Code(s): I48.0 - Paroxysmal atrial fibrillation (2) CAD (coronary artery disease) Code(s): I25.10 - ATHSCL HEART DISEASE OF [place] CORONARY ARTERY W/O ANG PCTRS Qualifiers: Coronary Disease-Associated Artery/Lesion type: [place] artery [place] vs. transplanted heart: [place] heart Associated angina: without angina Qualified Code(s): I25.10 - Atherosclerotic heart disease of [place] coronary artery without angina pectoris (3) Chest pain Code(s): R07.9 - CHEST PAIN, UNSPECIFIED Qualifiers: Chest pain type: unspecified Qualified Code(s): R07.9 - Chest pain, unspecified (4) Diabetes mellitus, insulin dependent (IDDM), uncontrolled Code(s): E10.65 - TYPE 1 DIABETES MELLITUS WITH HYPERGLYCEMIA Qualifiers: Diabetes mellitus complication status: with neurologic complications Diabetes mellitus complication detail: with polyneuropathy Qualified Code (s): E10.42 - Type 1 diabetes mellitus with diabetic polyneuropathy; E10.65 - Type 1 diabetes mellitus with hyperglycemia (5) HTN (hypertension) Code(s): I10 - ESSENTIAL (PRIMARY) HYPERTENSION Qualifiers: Hypertension type: essential hypertension Qualified Code(s): I10 - Essential (primary) hypertension (6) Hypercholesterolemia Code(s): E78.0 - PURE HYPERCHOLESTEROLEMIA * DO NOT USE * (7) Sleep apnea Code(s): G47.30 - SLEEP APNEA, UNSPECIFIED Qualifiers: Sleep apnea type: obstructive Qualified Code(s): G47.33 - Obstructive sleep apnea (adult) (pediatric) Assessment/Plan 06/24/2016 Echo:Normal LV size and fxn, mild LAE, no sig valve abnl, mod ao dilatation 4.7 cm 1. Chest pain syndrome with underlying non-obstructive CAD 2. HTN 3. Hypercholesterolemia 4. Type 2 diabes mellitus 5. OSAS 6. Paroxysmal atrial fibrillation->SR 7. Exogenous obesity 8. Thoracic aortic aneurysm PLAN: 1. Continue Xarelto 20 mg QD 2. Continue Sotalol 80 mg BID as tolerated 3. Continue Yamil 10/20 mg QD or equivalent 4. Continue Ranexa 500 mg BID 5. Continue Lipitor 20 mg QHS 6. Continue Furosemide 60 mg QD 7. Ruled out for [place], oral steroids with GI protection, BD 8. F/u chest CT results
--- NOTE | 2016-06-25 13:25 | PN ---
Progress Note (short form) - Note Progress Note: PULMONARY AWAKE/ALERT/WANTS TO GO HOME VSS ANICTERIC B/L DISTANT BUT CLEAR BREATH SOUNDS S1S2 OBESE NO EDEMA LABS/MEDS/NOTES/IMAGING REVIEWED CT CHEST OFFICIAL REPORT PENDING NO OBVIOUS INFILTRATES/EFFUSIONS OR NODULES : AE of COPD Active smoker Severe OSAS on CPAP @ 14 cm H2O Suspected component of Costochondritis PLAN: Oral prednisone O2 as needed CPAP 2 14 cm H2O ordered No smoking re-enforced BD TX VTE prophylaxis Cardiac workup per Cardiology Monitor off ABX No objection to discharge and f/u with Dr. Velasquez (Pulmonary) provide copy of CT chest to patient Cinthia JOHANSEN MD
[2016-06-25 16:49] LABS: TROPONIN I < 0.02 ng/ml (0.00-0.05)
[2016-06-25] MEDS: ATORVASTATIN CA 20 MG TABLET (FP) PO SCH (22:25)
[2016-06-25] MEDS: traZODone HCL 50 MG TABLET (FP) PO SCH (22:25)
[2016-06-26] MEDS: glipiZIDE 5 MG TABLET (FP) PO SCH (06:53)
[2016-06-26] MEDS: INSULIN DETEMIR 100 UNITS/ML MDV SQ SCH (06:53)
[2016-06-26] MEDS: ALBUTEROL SO4 0.083% IH SOL 2.5 MG/3 ML VIAL.NEB. NEB SCH (06:54)
--- NOTE | 2016-06-26 07:50 | DS ---
Physical Examination Vital Signs: Vital Signs Temperature 97.7 F 06/26/16 02:00 Pulse Rate 48 L 06/26/16 06:00 Respiratory Rate 18 06/26/16 06:00 Blood Pressure 105/63 06/26/16 06:00 O2 Sat by Pulse Oximetry (%) 94 L 06/25/16 21:00 Findings/Remarks: NO CP NO SOB Cardiovascular: Yes: Bradycardia, S1, S2 Respiratory: Yes: Regular, CTA Bilaterally Gastrointestinal: Yes: Normal Bowel Sounds, Soft Edema: No Neurological: Yes: Alert, Oriented Labs: CBC, BMP 06/25/16 05:38 06/25/16 05:38 Discharge Summary Reason For Visit: CHEST PAIN Current Active Problems Atrial fibrillation (Acute) BPH (benign prostatic hyperplasia) (Acute) CAD (coronary artery disease) (Acute) Chest pain (Acute) Cough (Acute) Depression (Acute) Diabetes mellitus, insulin dependent (IDDM), uncontrolled (Acute) HTN (hypertension) (Acute) Hypercholesterolemia (Acute) Sleep apnea (Acute) Hospital Course: The patient is a 60 year old male, with a significant past medical history of DM , HTN, hyperlipidemia, a-fib (on xarelto), CHF, COPD, sleep apnea, and pancreatitis who was sent by his PCP to the emergency department for ongoing chest pain for the past week. The patient ranks his pain a 6/10 in pain intensity. The patient reports his pain is getting progressively worse since its original onset. He also notes feeling short of breath which often gets worse when he ambulates or with much activity. He denies fever, chills, headache and dizziness. per patient he had things to take care of at home so did not come earlier to the ER he denies any nausea vomitting or tachyacardia or dizzines with chest pressure. Allergies: NKA Social History: Current everyday smoker. Denies EtOH use and drug use. PCP: CARD: History Source: Patient - Past Medical History Cardiovascular: Yes: AFIB, HTN, Hyperlipdemia Pulmonary: Yes: COPD Gastrointestinal: Yes: GERD Endocrine: Yes: Diabetes Mellitus - Smoking History Smoking history: Current every day smoker Have you smoked in the past 12 months: Yes Aproximately how many cigarettes per day: 18 If you are a former smoker, when did you quit?: On Chantix - Problems (1) Chest pain Assessment/Plan: h/o cad tele dr askew on consult CE 3 sets echo ---dilated aortic root may need stress test lipid panel Code(s): R07.9 - CHEST PAIN, UNSPECIFIED Qualifiers: Chest pain type: unspecified Qualified Code(s): R07.9 - Chest pain, unspecified (2) Diabetes Assessment/Plan: hga1c bgm insulin Code(s): E11.9 - TYPE 2 DIABETES MELLITUS WITHOUT COMPLICATIONS Qualifiers: Diabetes mellitus type: type 2 Diabetes mellitus complication status: with hyperglycemia Qualified Code(s): E10.65 - Type 1 diabetes mellitus with hyperglycemia (3) Cough Assessment/Plan: nebulizer advair Code(s): R05 - COUGH (4) Depression Assessment/Plan: trazadone wellbutrin Code(s): F32.9 - MAJOR DEPRESSIVE DISORDER, SINGLE EPISODE, UNSPECIFIED (5) BPH (benign prostatic hyperplasia) Assessment/Plan: flomax Code(s): N40.0 - BENIGN PROSTATIC HYPERPLASIA WITHOUT LOWER URINRY TRACT SYMP (6) Dilated Aortic Root Assessment/Plan: ct scan of chest--DILATED AORTIC ROOT--3.9 Condition: Stable - Instructions Referrals: Dirk Garza MD [Primary Care Provider] - - Home Medications Comprehensive Discharge Medication List: Ambulatory Orders Atorvastatin Ca [Lipitor] 20 mg PO HS 07/28/13 Bupropion HCl [Wellbutrin Xl -] 150 mg PO DAILY 07/28/13 Pantoprazole Sodium [Protonix] 40 mg PO DAILY 07/28/13 Ranolazine [Ranexa -] 1,000 mg PO BID 07/28/13 Rivaroxaban [Xarelto -] 20 mg PO DAILY 07/28/13 Salmeterol/Fluticasone [Advair 250Mcg/50Mcg -] 1 inh PO DAILY 07/28/13 Sotalol HCl [Sotalol] 80 mg PO BID 07/28/13 Tamsulosin HCl 0.4 mg PO DAILY 07/28/13 Trazodone HCl [Desyrel -] 50 mg PO HS 07/28/13 Clobetasol Prop 0.05% Tp Oint [Temovate (Nf)] 60 gm NR DAILY 09/01/14 Insulin Glargine,Hum.rec.anlog [Lantus Solostar PEN -] 50 units SQ AM 09/01/14 Amlodipine Bes/Olmesartan Med [Yamil 5-40 mg Tablet] 1 each PO DAILY 03/15/15 Glipizide/Metformin HCl [Glipizide-Metformin 5-500 mg] 1 each PO TID 03/15/15 Potassium Chloride [K-Dur] 20 meq PO DAILY 03/15/15 Triamcinolone 0.1% Cream [Aristocort] 0 gm TP ASDIR 03/15/15 Valacyclovir HCl [Valtrex -] 500 mg PO ASDIR 03/15/15 Budesonide/Formeterol Fumarate [SYMBICORT 160/4.5mcg -] 2 inh PO BID 06/24/16 Insulin Lispro Protamin/Lispro [Humalog Mix 50-50 Kwikpen] 15 unit SQ TID
[2016-06-26] MEDS ORDERED: PT OWN MED DRAWER 7, Y5N ONE (08:11)
[2016-06-26 08:15] VITALS: BP 144/70; PULSE 54; TEMP 98
[2016-06-26] MEDS: predniSONE 20 MG TABLET (UD) PO SCH (09:16)
[2016-06-26] MEDS: RANOLAZINE E.R. 500 MG TABLET (FP) PO SCH (09:16)
[2016-06-26] MEDS: PANTOPRAZOLE 40 MG TABLET (FP) PO SCH (09:16)
[2016-06-26] MEDS: RIVAROXABAN 20 MG TABLET PO SCH (09:17)
[2016-06-26] MEDS: TAMSULOSIN HCL 0.4 MG CAP.ER.24H (FP) PO SCH (09:17)
[2016-06-26] MEDS: amLODIPine BESYLATE 10 MG TABLET (FP) PO SCH (09:17)
[2016-06-26] MEDS: SOTALOL HCL 80 MG TABLET (FP) PO SCH (09:17)
[2016-06-26] MEDS: FLUTICASONE/SALMETEROL 100 MCG/50 MCG DISKUS IH SCH (09:22)
--- NOTE | 2016-06-26 10:25 | PN ---
Progress Note, Physician Chief Complaint: Feels better History of Present Illness: Patient was seen and examined. Awake and alert. Chart was reviewed Denies chest pain today. Tolerating therapy Planned for discharge home to be followed as outpatient - Current Medication List Current Medications: Active Medications Albuterol Sulfate (Ventolin 0.083% Nebulizer Soln -) 1 amp NEB Q4H PRN PRN Reason: SHORT OF BREATH/WHEEZING Last Admin: 06/25/16 17:40 Dose: 1 amp Albuterol Sulfate (Ventolin 0.083% Nebulizer Soln -) 1 amp NEB TID [facility] Last Admin: 06/26/16 06:54 Dose: Not Given Amlodipine Besylate (Norvasc -) 10 mg PO DAILY [facility] Last Admin: 06/26/16 09:17 Dose: 10 mg Atorvastatin Calcium (Lipitor -) 20 mg PO HS [facility] Last Admin: 06/25/16 22:25 Dose: 20 mg Bupropion HCl (Wellbutrin Xl -) 150 mg PO DAILY [facility] Last Admin: 06/26/16 09:19 Dose: 150 mg Glipizide (Glucotrol -) 5 mg PO BID@0700,1630 [facility] Last Admin: 06/26/16 06:53 Dose: 5 mg Guaifenesin (Robitussin Dm -) 10 ml PO Q4H PRN PRN Reason: COUGH Insulin Detemir (Levemir Vial) 30 units SQ AM [facility] Last Admin: 06/26/16 06:53 Dose: 30 units Pantoprazole Sodium (Protonix -) 40 mg PO DAILY [facility] Last Admin: 06/26/16 09:16 Dose: 40 mg Prednisone (Deltasone -) 40 mg PO DAILY [facility] Stop: 06/26/16 12:44 Last Admin: 06/26/16 09:16 Dose: 40 mg Ranolazine (Ranexa -) 500 mg PO BID [facility] Last Admin: 06/26/16 09:16 Dose: 500 mg Rivaroxaban (Xarelto -) 20 mg PO DAILY [facility] Last Admin: 06/26/16 09:17 Dose: 20 mg Fluticasone/Salmeterol (Advair 100mcg/50mcg -) 2 puff IH BID [facility] Last Admin: 06/26/16 09:22 Dose: 2 puff Sotalol HCl (Betapace -) 80 mg PO BID [facility] Last Admin: 06/26/16 09:17 Dose: 80 mg Tamsulosin HCl (Flomax -) 0.4 mg PO DAILY@0830 [facility] Last Admin: 06/26/16 09:17 Dose: 0.4 mg Trazodone HCl (Desyrel -) 50 mg PO HS [facility] Last Admin: 06/25/16 22:25 Dose: 50 mg - Objective Vital Signs: Vital Signs Temperature 98 F 06/26/16 08:13 Pulse Rate 54 L 06/26/16 08:13 Respiratory Rate 18 06/26/16 08:13 Blood Pressure 144/70 06/26/16 08:13 O2 Sat by Pulse Oximetry (%) 94 L 06/25/16 21:00 Neck: Yes: Supple Cardiovascular: Yes: Regular Rate and Rhythm, S1, S2 Respiratory: Yes: CTA Bilaterally Gastrointestinal: Yes: Normal Bowel Sounds, Soft, Abdomen, Obese. No: Tenderness Edema: No Additional Findings/Remarks: - Review of Systems Constitutional: denies: Chills, Fever Cardiovascular: reports: Chest Pain. denies: Palpitations, Shortness of Breath Respiratory: denies: Cough, Hemoptysis, Orthopnea, PND, SOB Gastrointestinal: denies: Abdominal Pain, Constipation, Diarrhea, Melena, Nausea , Rectal Bleeding, Vomiting Genitourinary: denies: Dysuria Musculoskeletal: denies: Joint Pain Neurological: denies: Dizziness, Headache, Seizure, Syncope Labs: CBC, BMP 06/25/16 05:38 06/25/16 05:38 - ....Imaging Cat Scan: Report Reviewed Problem List - Problems (1) Chest pain Code(s): R07.9 - CHEST PAIN, UNSPECIFIED Qualifiers: Chest pain type: unspecified Qualified Code(s): R07.9 - Chest pain, unspecified (2) Diabetes Code(s): E11.9 - TYPE 2 DIABETES MELLITUS WITHOUT COMPLICATIONS Qualifiers: Diabetes mellitus type: type 2 Diabetes mellitus complication status: with hyperglycemia Qualified Code(s): E10.65 - Type 1 diabetes mellitus with hyperglycemia (3) CAD (coronary artery disease) Code(s): I25.10 - ATHSCL HEART DISEASE OF [place] CORONARY ARTERY W/O ANG PCTRS Qualifiers: Coronary Disease-Associated Artery/Lesion type: [place] artery [place] vs. transplanted heart: [place] heart Associated angina: without angina Qualified Code(s): I25.10 - Atherosclerotic heart disease of [place] coronary artery without angina pectoris (4) HTN (hypertension) Code(s): I10 - ESSENTIAL (PRIMARY) HYPERTENSION Qualifiers: Hypertension type: essential hypertension Qualified Code(s): I10 - Essential (primary) hypertension (5) Hypercholesterolemia Code(s): E78.0 - PURE HYPERCHOLESTEROLEMIA * DO NOT USE * (6) Atrial fibrillation Code(s): I48.91 - UNSPECIFIED ATRIAL FIBRILLATION Qualifiers: Atrial fibrillation type: paroxysmal Qualified Code(s): I48.0 - Paroxysmal atrial fibrillation (7) Sleep apnea Code(s): G47.30 - SLEEP APNEA, UNSPECIFIED Qualifiers: Sleep apnea type: obstructive Qualified Code(s): G47.33 - Obstructive sleep apnea (adult) (pediatric) Assessment/Plan 1. Chest pain syndrome with underlying non-obstructive CAD 2. HTN 3. Hypercholesterolemia 4. Type 2 diabes mellitus 5. OSAS 6. Paroxysmal atrial fibrillation 7. Exogenous obesity PLAN: 1. Continue Xarelto 20 mg QD 2. Continue Sotalol 80 mg BID as tolerated 3. Continue Yamil 10/20 mg QD or equivalent 4. Continue Ranexa 1000 mg BID (was on this dose as outpatient) 5. Continue Lipitor 40 mg QHS 6. Currently on steroids. 7. Will decide on diuretics when he comes to office next week. Nuclear stress test to be considered as outpatient. 8. Discharge home 9. BIPAP at home Further plans are to follow Harsha High MD
--- NOTE | 2016-06-26 14:20 | EKG ---
Test Reason : Blood Pressure : / mmHG Vent. Rate : 051 BPM Atrial Rate : 051 BPM P-R Int : 208 ms QRS Dur : 130 ms QT Int : 474 ms P-R-T Axes : 028 067 016 degrees QTc Int : 436 ms SINUS BRADYCARDIA NON-SPECIFIC INTRA-VENTRICULAR CONDUCTION BLOCK ABNORMAL ECG WHEN COMPARED WITH ECG OF 24-JUN-2016 10:48, NO SIGNIFICANT CHANGE WAS FOUND Confirmed by AMBIKA SORENSON MD ([id number]) on 06/26/2016 2:19:58 PM Referred By: GLORIA CURTIS DR Confirmed By:AMBIKA SORENSON MD
== END 2016-06-26 10:35 | disposition home or self-care (01) | DRG 192 ==
LOC: JER 09:59 → JERBED 11:50 → J4W 15:40
PROVIDERS: ADMIT Family Medicine; ATTEND Family Medicine
PROC: 5A09457 Assistance with Respiratory Ventilation, 24-96 Consecutive Hours, Continuous Positive Airway Pressure (ICD-10-PCS; principal; 2016-06-24)
DX: J44.1 Chronic obstructive pulmonary disease with (acute) exacerbation (principal); I25.10 Atherosclerotic heart disease of native coronary artery without angina pectoris; I48.0 Paroxysmal atrial fibrillation; Z79.01 Long term (current) use of anticoagulants; F17.210 Nicotine dependence, cigarettes, uncomplicated; K21.9 Gastro-esophageal reflux disease without esophagitis; E10.65 Type 1 diabetes mellitus with hyperglycemia; F32.9 Major depressive disorder, single episode, unspecified; N40.0 Benign prostatic hyperplasia without lower urinary tract symptoms; G47.33 Obstructive sleep apnea (adult) (pediatric); E66.09 Other obesity due to excess calories; Z68.36 Body mass index [BMI] 36.0-36.9, adult; Z71.3 Dietary counseling and surveillance; Z79.4 Long term (current) use of insulin; R07.9 Chest pain, unspecified; Z98.61 Coronary angioplasty status; J06.9 Acute upper respiratory infection, unspecified; M94.0 Chondrocostal junction syndrome [Tietze]; E10.42 Type 1 diabetes mellitus with diabetic polyneuropathy
CPT/HCPCS: 36415; 71010-TC; 71260-TC; 80053; 80061; 82550; 83036; 83721; 83735; 84100; 84484; 85025; 85610; 93005; 93010; 93306-TC; 94640; 94660; 99284-25

== ENCOUNTER 2016-07-31 11:07 | Emergency (ER) | payer OTHER ==
[2016-07-31 11:19] VITALS: TEMP 97.7; BMI 32.5
[2016-07-31] MEDS ORDERED: ASPIRIN 81 MG CHEWABLE TABLETS PO ONE (11:43)
--- NOTE | 2016-07-31 11:43 | PDOC ---
History of Present Illness - General History Source: Patient Exam Limitations: No Limitations <Jennifer Neri - Last Filed: 07/31/16 14:23> - General History Source: Patient Exam Limitations: No Limitations <Damaris Hubbard - Last Filed: 08/01/16 19:24> - General Chief Complaint: Chest Pain Stated Complaint: CHEST PAIN Time Seen by Provider: 07/31/16 11:24 - History of Present Illness Initial Comments: 07/31/16 14:23 The patient is a 60-year-old male with a significant past medical history of DM , HTN, hyperlipidemia, a-fib (on xarelto), CHF, COPD, sleep apnea pancreatitis, and presents to the emergency department with chest pain since 7am this morning. He reports that the chest pain is constant, localized to the left chest region, non-radiating, and hurts with touch. The chest pain is minimally relieved with rest. He reports intermittent left arm pain. He reports associated sweating that is increased from his baseline. 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 The patient denies shortness of breath, headache and dizziness. The patient denies fever, chills, nausea, vomit, diarrhea and constipation. The patient denies dysuria, frequency, urgency and hematuria. Allergies: NKDA Social History: Current everyday smoker, occasional ETOH use. PCP: Dr. Garza Logistics Officer: Dr. High (Jennifer Neri) Past History <Jennifer Neri - Last Filed: 07/31/16 14:23> - Past Medical History Anemia: No Asthma: No Cancer: No Cardiac Disorders: Yes (Yes; A-Fib) CVA: No COPD: Yes CHF: No Dementia: No Diabetes: Yes GI Disorders: Yes (gasritis) Disorders: No HTN: Yes Hypercholesterolemia: Yes Liver Disease: No Seizures: No Thyroid Disease: No - Surgical History Abdominal Surgery: No Appendectomy: No Cardiac Surgery: Yes (Angio-plasty) Cholecystectomy: No Lung Surgery: No Neurologic Surgery: No Orthopedic Surgery: Yes (both feet bone removal) - Immunization History Immunization Up to Date: Yes - Psycho/Social/Smoking Cessation Hx Anxiety: No Suicidal Ideation: No Smoking Status: No Smoking History: Current every day smoker Have you smoked in the past 12 months: Yes Number of Cigarettes Smoked Daily: 18 If you are a former smoker, when did you quit?: On [employer] Information on smoking cessation initiated: No 'Breaking Loose' booklet given: 06/24/16 Hx Alcohol Use: No Drug/Substance Use Hx: No Substance Use Type: None Hx Substance Use Treatment: No <Damaris Hubbard - Last Filed: 08/01/16 19:24> - Past Medical History Allergies/Adverse Reactions: Allergies Allergy/AdvReac Type Severity Reaction Status Date / Time No Known Allergies Allergy Verified 07/31/16 11:15 Home Medications: Ambulatory Orders Atorvastatin Ca [Lipitor] 20 mg PO HS 07/28/13 Bupropion HCl [Wellbutrin Xl -] 150 mg PO DAILY 07/28/13 Pantoprazole Sodium [Protonix] 40 mg PO DAILY 07/28/13 Ranolazine [Ranexa -] 1,000 mg PO BID 07/28/13 Rivaroxaban [Xarelto -] 20 mg PO DAILY 07/28/13 Salmeterol/Fluticasone [Advair 250Mcg/50Mcg -] 1 inh PO DAILY 07/28/13 Sotalol HCl [Sotalol] 80 mg PO BID 07/28/13 Tamsulosin HCl 0.4 mg PO DAILY 07/28/13 Trazodone HCl [Desyrel -] 50 mg PO HS 07/28/13 Clobetasol Prop 0.05% Tp Oint [Temovate (Nf)] 60 gm NR DAILY 09/01/14 Insulin Glargine,Hum.rec.anlog [Lantus Solostar PEN -] 50 units SQ AM 09/01/14 Amlodipine Bes/Olmesartan Med [Yamil 5-40 mg Tablet] 1 each PO DAILY 03/15/15 Glipizide/Metformin HCl [Glipizide-Metformin 5-500 mg] 1 each PO TID 03/15/15 Potassium Chloride [K-Dur] 20 meq PO DAILY 03/15/15 Budesonide/Formeterol Fumarate [SYMBICORT 160/4.5mcg -] 2 inh PO BID 06/24/16 Insulin Lispro Protamin/Lispro [Humalog Mix 50-50 Kwikpen] 15 unit SQ TID Cardiac Specific PMH - Complaint Specific PMHX Pacemaker: No <Damaris Hubbard - Last Filed: 08/01/16 19:24> Review of Systems - Review of Systems Able to Perform ROS?: Yes <Jennifer Neri - Last Filed: 07/31/16 14:23> <Damaris Hubbard - Last Filed: 08/01/16 19:24> - Review of Systems Comments:: 07/31/16 14:24 GENERAL/CONSTITUTIONAL: (+) Sweating. No fever or chills. No weakness. HEAD, EYES, EARS, NOSE AND THROAT: No change in vision. No ear pain or discharge. No sore throat. CARDIOVASCULAR: (+) Chest pain. No shortness of breath. RESPIRATORY: No cough, wheezing, or hemoptysis. GASTROINTESTINAL: No nausea, vomiting, diarrhea or constipation. GENITOURINARY: No dysuria, frequency, or change in urination. MUSCULOSKELETAL: No joint or muscle swelling or pain. No neck or back pain. EXTREMITIES: (+) Left arm pain. SKIN: No rash NEUROLOGIC: No headache, vertigo, loss of consciousness, or change in strength/ sensation. ENDOCRINE: No increased thirst. No abnormal weight change. HEMATOLOGIC/LYMPHATIC: No anemia, easy bleeding, or history of blood clots. ALLERGIC/IMMUNOLOGIC: No hives or skin allergy. (Jennifer Neri) *Physical Exam <Jennifer Neri - Last Filed: 07/31/16 14:23> <Damaris Hubbard - Last Filed: 08/01/16 19:24> - Vital Signs Last Vital Signs Temp Pulse Resp BP Pulse Ox 97.7 F 77 18 105/69 97 07/31/16 11:15 07/31/16 17:10 07/31/16 17:10 07/31/16 17:10 07/31/16 17:10 - Physical Exam Comments: 07/31/16 14:24 GENERAL: Awake, alert, and fully oriented, in no acute distress HEAD: No signs of trauma EYES: PERRLA, EOMI, sclera anicteric, conjunctiva clear ENT: Auricles normal inspection, hearing grossly normal, nares patent, oropharynx clear without exudates. Moist mucosa NECK: Normal ROM, supple, no lymphadenopathy, JVD, or masses LUNGS: Breath sounds equal, clear to auscultation bilaterally. No wheezes, and no crackles HEART: (+) Chest wall tenderness to the left lateral side. Regular rate and rhythm, normal S1 and S2, no murmurs, rubs or gallops ABDOMEN: Soft, nontender, normoactive bowel sounds. No guarding, no rebound. No masses EXTREMITIES: Normal range of motion, no edema. No clubbing or cyanosis. No cords, erythema, or tenderness NEUROLOGICAL: Cranial nerves II through XII grossly intact. Normal speech, normal gait SKIN: Warm, Dry, normal turgor, no rashes or lesions noted. (Jennifer Neri) Heart Score/ECG Review <Jennifer Neri - Last Filed: 07/31/16 14:23> #1 ECG reviewed & interpreted by me at: 14:03 <Damaris Hubbard - Last Filed: 08/01/16 19:24> #1 07/31/16 14:03 Twelve-lead EKG was performed and reviewed by me. There is normal sinus rhythm with a normal rate of 73bpm. The axis is normal. The intervals are normal - pr: 188ms, QRS:118ms, Qtc:469ms. There are no ST or T wave abnormalities. (Damaris Hubbard) ED Treatment Course - LABORATORY CBC & Chemistry Diagram: 07/31/16 11:59 07/31/16 11:59 <Jennifer Neri - Last Filed: 07/31/16 14:23> - LABORATORY CBC & Chemistry Diagram: 07/31/16 11:59 07/31/16 11:59 <Damaris Hubbard - Last Filed: 08/01/16 19:24> - ADDITIONAL ORDERS Additional order review: 07/31/16 11:59 RBC 4.44 MCV 90.9 MCHC 34.9 RDW 12.8 MPV 8.7 Neutrophils % 58.6 Lymphocytes % 29.2 Monocytes % 7.7 Eosinophils % 3.7 D Basophils % 0.8 - RADIOLOGY Radiology Studies Ordered: Category Date Time Status CHEST X-RAY PORTABLE* [RAD] Stat Radiology 07/31/16 11:44 Completed Radiograph Interpretation: 07/31/16 14:25 RAD/ Chest XR portable Reviewed by: Dr. Damaris Hubbard Interpreted by: Dr. Lei Hewitt IMPRESSION: No evidence of CHF, pneumonia, atelectasis. (Jennifer Neri) - Medications Given in the ED: ED Medications Discontinued Medications Generic Name Dose Route Start Last Admin Trade Name Stacie PRN Reason Stop Dose Admin Aspirin 162 mg 07/31/16 11:43 07/31/16 12:01 Asa - PO 07/31/16 11:44 162 mg ONCE ONE Administration Ibuprofen 600 mg 07/31/16 13:02 07/31/16 13:12 Motrin - PO 07/31/16 13:03 600 mg ONCE ONE Administration Methocarbamol 500 mg 07/31/16 13:02 07/31/16 13:12 Robaxin - PO 07/31/16 13:03 500 mg ONCE ONE Administration Medical Decision Making <Jennifer Neri - Last Filed: 07/31/16 14:23> <Damaris Hubbard - Last Filed: 08/01/16 19:24> - Medical Decision Making 07/31/16 11:42 A portion of this note was documented by scribe services under my direction. I have reviewed the details of the note, within reason, and agree with the documentation with the following case summary and management plan written by me. Nursing documentation reviewed and incorporated into medical decision making 07/31/16 14:39 This is a 60 yo M h/o DM, HTN, HLD, non obstructive cardiac disease, Pt states he has had 4 Cardiac cathetherizations, no stents Was recently admitted to hospital for left sided chest pain Work up negative Pt was seen as an outpatient for stress test PT states he has had this same chest pain while in the hospital Does report some exertions shortness of breath No nausea No diaphoresis No pain radiating to the back 07/31/16 14:54 Laboratory Tests 07/31/16 07/31/16 07/31/16 11:59 11:59 12:00 WBC 8.7 Hgb 14.1 Hct 40.3 Plt Count 176 Neutrophils % 58.6 Lymphocytes % 29.2 D-Dimer < 200 BUN 12 Creatinine 0.8 Random Glucose 143 H Creatine Kinase 103 Troponin I < 0.02 07/31/16 14:55 CXR: no acute infiltrate, CHF Case reviewed with Dr High PT outpatient stress test negative Pt should have two troponins If negative, pt should be discharged to home 07/31/16 14:58 Repeat troponin 6pm D dimer negative Troponin repeated Pt signed out to Dr Brooke pending results Anticipate negative troponin and discharge to home Clinical impression: chest pain (Damaris Hubbard) *DC/Admit/Observation/Transfer <Jennifer Neri - Last Filed: 07/31/16 14:23> - Discharge Dispostion Admit: No <Damaris Hubbard - Last Filed: 08/01/16 19:24> Diagnosis at time of Disposition: Chest pain Qualifiers: Chest pain type: unspecified Qualified Code(s): R07.9 - Chest pain, unspecified - Discharge Dispostion Disposition: HOME Condition at time of disposition: Stable - Referrals Referrals: Dirk Garza MD [Primary Care Provider] - - Patient Instructions Printed Discharge Instructions: DI for Atypical Chest Pain, DI for Chest Pain Additional Instructions: Fredy Thank you for coming to the ER today your labs were normal You need to follow up with Dr High in the office for further management You may take tylenol for your chest wall pain Please return to the ER for any other concerns or complaints - Attestations Scribe Attestion: 07/31/16 14:25 Documentation prepared by Jennifer Neri, acting as anesthesiology medical doctor for Damaris Hubbard MD. (Jennifer Neri)
[2016-07-31] MEDS ORDERED: ASPIRIN 81 MG CHEWABLE TABLETS ONE (12:00)
[2016-07-31 12:27] LABS: BASOPHIL 0.8 % (0-2.0); EOSINOPHIL 3.7 % (0-4.5); MCH 31.7 pg (25.7-33.7); MCHC 34.9 g/dl (32.0-35.9); MEAN CELL VOLUME 90.9 fl (80-96); MEAN PLT VOLUME 8.7 fl (7.5-11.1); NEUTROPHILS 58.6 % (42.8-82.8); PLATELET COUNT 176 K/MM3 (134-434); RDW 12.8 % (11.9-15.9); WHITE BLOOD COUNT 8.7 K/mm3 (4.0-10.0)
[2016-07-31 12:33] LABS: INR 1.35 (0.82-1.09); PROTHROMBIN TIME (PATIENT) 14.9 SEC (9.98-11.88)
[2016-07-31 12:44] LABS: ALBUMIN 3.5 g/dl (3.4-5.0); ANION GAP 9 (8-16); BILIRUBIN,TOTAL 0.3 mg/dL (0.2-1.0); CO2 27 mmol/L (21-32); CREATININE 0.8 mg/dL (0.7-1.3); GLUCOSE,RANDOM 143 mg/dL (74-106); MAGNESIUM 1.9 mg/dL (1.8-2.4); SGOT/AST 10 U/L (15-37); SGPT/ALT 25 U/L (12-78); TOT PROT 6.6 g/dl (6.4-8.2)
[2016-07-31 12:47] LABS: ALK PHOS 112 U/L (45-117); TROPONIN I < 0.02 ng/ml (0.00-0.05)
[2016-07-31] MEDS ORDERED: METHOCARBAMOL 500 MG TABLET PO ONE (13:02)
[2016-07-31] MEDS ORDERED: IBUPROFEN 600 MG TABLET (FP) PO ONE ×2 (13:02→13:08)
[2016-07-31] MEDS ORDERED: METHOCARBAMOL 500 MG TABLET ONE (13:08)
--- NOTE | 2016-07-31 14:17 | EKG ---
Test Reason : Blood Pressure : / mmHG Vent. Rate : 073 BPM Atrial Rate : 073 BPM P-R Int : 188 ms QRS Dur : 118 ms QT Int : 426 ms P-R-T Axes : 049 058 030 degrees QTc Int : 469 ms NORMAL SINUS RHYTHM NON-SPECIFIC INTRA-VENTRICULAR CONDUCTION DELAY BORDERLINE ECG WHEN COMPARED WITH ECG OF 25-JUN-2016 10:45, NO SIGNIFICANT CHANGE WAS FOUND Confirmed by MABIKA SORENSON MD ([id number]) on 07/31/2016 2:17:34 PM Referred By: Confirmed By:AMBIKA SORENSON MD
[2016-07-31 18:25] VITALS: BP 105/69; PULSE 77
[2016-07-31 19:09] LABS: TROPONIN I < 0.02 ng/ml (0.00-0.05)
== END 2016-07-31 19:55 | disposition home or self-care (01) ==
LOC: JER 11:07
DX: R07.9 Chest pain, unspecified (principal); I48.91 Unspecified atrial fibrillation; Z79.01 Long term (current) use of anticoagulants; I25.10 Atherosclerotic heart disease of native coronary artery without angina pectoris; Z98.61 Coronary angioplasty status; I10 Essential (primary) hypertension; E11.9 Type 2 diabetes mellitus without complications; Z79.4 Long term (current) use of insulin; Z79.84 Long term (current) use of oral hypoglycemic drugs; E78.5 Hyperlipidemia, unspecified; I50.9 Heart failure, unspecified; G47.30 Sleep apnea, unspecified; J44.9 Chronic obstructive pulmonary disease, unspecified
CPT/HCPCS: 36415; 71010-TC; 80053; 82550; 83735; 84484; 85025; 85379; 85610; 93005; 93010; 99285-25

== ENCOUNTER 2017-04-28 18:51 | Inpatient (IN) | payer OTHER ==
--- NOTE | 2017-04-28 23:16 | PDOC ---
History of Present Illness - General History Source: Patient - History of Present Illness Initial Comments: 04/28/17 23:18 The patient is a 61-year-old male with a significant past medical history of DM , HTN, hyperlipidemia, a-fib (on xarelto), CHF, COPD, sleep apnea, pancreatitis , who presents to the emergency department with several weeks of chest pain. He reports the pain as annoying pain, 5/10 in severity. He states the pain is nonradiating and exacerbated both at rest and with exertion. 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 The patient denies shortness of breath, headache and dizziness. The patient denies fever, chills, nausea, vomit, diarrhea and constipation. The patient denies dysuria, frequency, urgency and hematuria. Allergies: NKDA Social History: Current everyday smoker (tapering down), occasional ETOH use. PCP: Dr. Garza Army Officer: Dr. High <Yessenia Kennedy - Last Filed: 04/28/17 23:59> - General History Source: Patient <Skyler Brooke - Last Filed: 04/29/17 19:40> - General Chief Complaint: Chest Pain Stated Complaint: PCP SENT/CHEST PAIN Time Seen by Provider: 04/28/17 23:16 Past History <Yessenia Kennedy - Last Filed: 04/28/17 23:59> - Past Medical History Anemia: No Asthma: No Cancer: No Cardiac Disorders: Yes (A-Fib) CVA: No COPD: Yes CHF: No Dementia: No Diabetes: Yes GI Disorders: Yes (gasritis) Disorders: No HTN: Yes Hypercholesterolemia: Yes Liver Disease: No Seizures: No Thyroid Disease: No - Surgical History Abdominal Surgery: No Appendectomy: No Cardiac Surgery: Yes (Angio-plasty) Cholecystectomy: No Lung Surgery: No Neurologic Surgery: No Orthopedic Surgery: Yes (both feet bone removal) - Immunization History Immunization Up to Date: Yes - Suicide/Smoking/Psychosocial Hx Smoking Status: No Smoking History: Current every day smoker Have you smoked in the past 12 months: Yes Number of Cigarettes Smoked Daily: 10 If you are a former smoker, when did you quit?: On Chantix Information on smoking cessation initiated: Yes 'Breaking Loose' booklet given: 04/28/17 Hx Alcohol Use: No Drug/Substance Use Hx: No Substance Use Type: None Hx Substance Use Treatment: No <MendySkyler - Last Filed: 04/29/17 19:40> - Past Medical History Allergies/Adverse Reactions: Allergies Allergy/AdvReac Type Severity Reaction Status Date / Time No Known Allergies Allergy Verified 04/28/17 18:56 Home Medications: Ambulatory Orders Atorvastatin Ca [Lipitor] 20 mg PO DAILY 07/28/13 Bupropion HCl [Wellbutrin Xl -] 150 mg PO DAILY 07/28/13 Ranolazine [Ranexa -] 1,000 mg PO BID 07/28/13 Rivaroxaban [Xarelto -] 20 mg PO DAILY 07/28/13 Salmeterol/Fluticasone [Advair 250Mcg/50Mcg -] 1 inh PO DAILY 07/28/13 Sotalol HCl [Sotalol] 80 mg PO BID 07/28/13 Tamsulosin HCl 0.4 mg PO DAILY 07/28/13 Clobetasol Prop 0.05% Tp Oint [Temovate (Nf)] 60 gm NR DAILY 09/01/14 Amlodipine Bes/Olmesartan Med [Yamil 5-40 mg Tablet] 1 each PO DAILY 03/15/15 Glipizide/Metformin HCl [Glipizide-Metformin 5-500 mg] 1 each PO TID 03/15/15 Potassium Chloride [K-Dur] 20 meq PO DAILY 03/15/15 Insulin Lispro Protamin/Lispro [Humalog Mix 50-50 Kwikpen] 15 unit SQ TID Ezetimibe 10 mg PO DAILY 04/29/17 Furosemide [Lasix -] 40 mg PO DAILY 04/29/17 Omeprazole 40 mg PO DAILY 04/29/17 Valacyclovir HCl [Valtrex -] 500 mg PO ASDIR 04/29/17 Review of Systems - Review of Systems Able to Perform ROS?: Yes Comments:: 04/28/17 23:19 CONSTITUTIONAL: Absent: fever, chills, diaphoresis, generalized weakness, malaise, loss of appetite HEENT: Absent: rhinorrhea, nasal congestion, throat pain, throat swelling, difficulty swallowing, mouth swelling, ear pain, eye pain, visual Changes CARDIOVASCULAR: (+) chest pain, Absent: syncope, palpitations, irregular heart rate, lightheadedness, peripheral edema RESPIRATORY: Absent: cough, shortness of breath, dyspnea with exertion, orthopnea, wheezing, stridor, hemoptysis GASTROINTESTINAL: Absent: abdominal pain, abdominal distension, nausea, vomiting, diarrhea, constipation, melena, hematochezia GENITOURINARY: Absent: dysuria, frequency, urgency, hesitancy, hematuria, flank pain, genital pain MUSCULOSKELETAL: Absent: myalgia, arthralgia, joint swelling SKIN: Absent: rash, itching, pallor HEMATOLOGIC/IMMUNOLOGIC: Absent: easy bleeding, easy bruising, lymphadenopathy, frequent infections ENDOCRINE: Absent: unexplained weight gain, unexplained weight loss, heat intolerance, cold intolerance NEUROLOGIC: Absent: headache, focal weakness or paresthesias, dizziness, unsteady gait, seizure, mental status changes, bladder or bowel incontinence PSYCHIATRIC: Absent: anxiety, depression, suicidal or homicidal ideation, hallucinations. <Yessenia Kennedy - Last Filed: 04/28/17 23:59> *Physical Exam - Vital Signs Last Vital Signs Temp Pulse Resp BP Pulse Ox 98.2 F 75 18 125/69 100 04/28/17 18:56 04/28/17 18:56 04/28/17 18:56 04/28/17 18:56 04/28/17 18:56 - Physical Exam Comments: 04/28/17 23:19 GENERAL: Well developed, well nourished. Awake and alert. No acute distress. HEENT: Normocephalic, atraumatic. PERRLA, EOMI. No conjunctival pallor. Sclera are non- icteric. Moist mucous membranes. Oropharynx is clear. NECK: Supple. Full ROM. No JVD. Carotid pulses 2+ and symmetric, without bruits. No thyromegaly. No lymphadenopathy. CARDIOVASCULAR: Regular rate and rhythm. No murmurs, rubs, or gallops. Distal pulses are 2+ and symmetric. PULMONARY: (+) decreased breath sounds bilaterally. No evidence of respiratory distress. No wheezing, rales or rhonchi. ABDOMINAL: Soft. Non-tender. Non-distended. No rebound or guarding. No organomegaly. Normoactive bowel sounds. MUSCULOSKELETAL Normal range of motion at all joints. No bony deformities or tenderness. No CVA tenderness. EXTREMITIES: No cyanosis. No clubbing. No edema. No calf tenderness. SKIN: Warm and dry. Normal capillary refill. No rashes. No jaundice. NEUROLOGICAL: Alert, awake, appropriate. Cranial nerves 2-12 intact. Normoreflexic in the upper and lower extremities. Normal speech. Toes are down-going bilaterally. Gait is normal without ataxia. PSYCHIATRIC: Cooperative. Good eye contact. Appropriate mood and affect. <Yessenia Kennedy - Last Filed: 04/28/17 23:59> - Vital Signs Last Vital Signs Temp Pulse Resp BP Pulse Ox 98.2 F 75 18 125/69 100 04/28/17 18:56 04/28/17 18:56 04/28/17 18:56 04/28/17 18:56 04/28/17 18:56 <Skyler Brooke - Last Filed: 04/29/17 19:40> Heart Score/ECG Review - ECG Intrepretation Comment:: 04/29/17 00:00 ECG was read by Dr. Brooke at 23:24 Impression: Sinus bradycardia. nonspecific intraventricular block. Vent. Rate: 58 bpm MD Interval: 172 ms QTc: 447 ms <Yessenia Kennedy - Last Filed: 04/28/17 23:59> ED Treatment Course - LABORATORY CBC & Chemistry Diagram: 04/29/17 09:50 04/29/17 09:50 <Skyler Brooke - Last Filed: 04/29/17 19:40> Medical Decision Making - Medical Decision Making 04/29/17 19:40 Dr. Brooke: The scribe's documentation has been prepared under my direction and personally reviewed by me in its entirery. I confirm that the note above accurately reflects all work, treatment, procedures, and medical decision making performed by me. <Skyler Brooke - Last Filed: 04/29/17 19:40> *DC/Admit/Observation/Transfer - Attestations Scribe Attestion: 04/28/17 23:20 Documentation prepared by Yessenia Kennedy, acting as medical chief technician for Skyler Brooke DO <Yessenia Kennedy - Last Filed: 04/28/17 23:59> - Discharge Dispostion Admit: Yes <Skyler Brooke - Last Filed: 04/29/17 19:40> Diagnosis at time of Disposition: Chest pain Qualifiers: Chest pain type: other chest pain Qualified Code(s): R07.89 - Other chest pain - Discharge Dispostion Condition at time of disposition: Stable
[2017-04-29 00:31] LABS: PH,URINE 5.5 (5.0-8.0); URINE APPEARANCE CLEAR; URINE BILIRUBIN NEGATIVE (NEGATIVE); URINE BLOOD NEGATIVE (NEGATIVE); URINE COLOR LT. YELLOW; URINE GLUCOSE (UA) 3+ (NEGATIVE); URINE KETONE NEGATIVE (NEGATIVE); URINE NITRITE NEGATIVE (NEGATIVE); URINE PROTEIN NEGATIVE (NEGATIVE); URINE UROBILINOGEN 0.2 mg/dL (0.2-1.0)
[2017-04-29 00:32] LABS: BASOPHIL 0.8 % (0-2.0); EOSINOPHIL 2.4 % (0-4.5); MEAN CELL VOLUME 93.9 fl (80-96); MEAN PLT VOLUME 9.3 fl (7.5-11.1); NEUTROPHILS 63.8 % (42.8-82.8); PLATELET COUNT 175 K/MM3 (134-434); RDW 12.8 % (11.9-15.9); WHITE BLOOD COUNT 8.3 K/mm3 (4.0-10.0)
[2017-04-29 00:52] LABS: INR 1.25 (0.82-1.09); PROTHROMBIN TIME (PATIENT) 14.1 SEC (9.98-11.88)
[2017-04-29 00:53] LABS: ALBUMIN 3.4 g/dl (3.4-5.0); ANION GAP 12 (8-16); BILIRUBIN,TOTAL 0.4 mg/dL (0.2-1.0); CALCIUM 9.1 mg/dL (8.5-10.1); CO2 22 mmol/L (21-32); SGPT/ALT 21 U/L (12-78); TOT PROT 6.5 g/dl (6.4-8.2)
[2017-04-29 00:56] LABS: ALK PHOS 104 U/L (45-117); TROPONIN I < 0.02 ng/ml (0.00-0.05)
[2017-04-29 00:57] LABS: MAGNESIUM 2.1 mg/dL (1.8-2.4); SGOT/AST 16 U/L (15-37)
[2017-04-29 00:58] LABS: CPK 197 IU/L (39-308)
[2017-04-29 00:59] LABS: GLUCOSE,RANDOM 443 mg/dL (74-106)
[2017-04-29] MEDS ORDERED: INSULIN REGULAR HUMAN 100 UNITS/ML *VIAL SQ ONE (01:00)
[2017-04-29] MEDS ORDERED: INSULIN NPH 100 UNITS/ML *VIAL ONE (02:43)
[2017-04-29] MEDS ORDERED: INSULIN REGULAR HUMAN 100 UNITS/ML *VIAL ONE (02:44)
[2017-04-29] MEDS: metFORMIN HCL 500 MG TABLET (FP) PO SCH ×3 (06:49→17:44)
[2017-04-29] MEDS: glipiZIDE 5 MG TABLET (FP) PO SCH ×3 (06:49→17:44)
[2017-04-29] MEDS ORDERED: ACETAMINOPHEN 500 MG TABLET (FP) PO ONE (06:59)
[2017-04-29] MEDS ORDERED: ACETAMINOPHEN 325 MG TABLET (FP) ONE (07:13)
[2017-04-29] MEDS: INSULIN SLIDING SCALE (NOVOLOG) 1 VIAL SQ SCH ×4 (07:48→23:15)
--- NOTE | 2017-04-29 07:52 | HP ---
Admitting History and Physical - Admission History of Present Illness: 61-year-old male with a significant past medical history of DM, HTN, hyperlipidemia, a-fib (on xarelto), CHF, COPD, sleep apnea, pancreatitis, who presents to the emergency department with several weeks of chest pain. He reports the pain as annoying pain, 5/10 in severity. He states the pain is nonradiating and exacerbated both at rest and with exertion. 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 - Past Medical History Cardiovascular: Yes: AFIB, CAD (Non-obstructive), HTN, Hyperlipdemia Pulmonary: Yes: COPD, Sleep Apnea Gastrointestinal: Yes: GERD Endocrine: Yes: Diabetes Mellitus - Past Surgical History Past Surgical History: Yes: Tonsillectomy - Smoking History Smoking history: Current every day smoker Have you smoked in the past 12 months: Yes Aproximately how many cigarettes per day: 10 If you are a former smoker, when did you quit?: On Chantix - Alcohol/Substance Use Hx Alcohol Use: No Home Medications - Allergies Allergies/Adverse Reactions: Allergies Allergy/AdvReac Type Severity Reaction Status Date / Time No Known Allergies Allergy Verified 04/28/17 18:56 - Home Medications Home Medications: Ambulatory Orders Atorvastatin Ca [Lipitor] 20 mg PO DAILY 07/28/13 Bupropion HCl [Wellbutrin Xl -] 150 mg PO DAILY 07/28/13 Ranolazine [Ranexa -] 1,000 mg PO BID 07/28/13 Rivaroxaban [Xarelto -] 20 mg PO DAILY 07/28/13 Salmeterol/Fluticasone [Advair 250Mcg/50Mcg -] 1 inh PO DAILY 07/28/13 Sotalol HCl [Sotalol] 80 mg PO BID 07/28/13 Tamsulosin HCl 0.4 mg PO DAILY 07/28/13 Clobetasol Prop 0.05% Tp Oint [Temovate (Nf)] 60 gm NR DAILY 09/01/14 Amlodipine Bes/Olmesartan Med [Yamil 5-40 mg Tablet] 1 each PO DAILY 03/15/15 Glipizide/Metformin HCl [Glipizide-Metformin 5-500 mg] 1 each PO TID 03/15/15 Potassium Chloride [K-Dur] 20 meq PO DAILY 03/15/15 Insulin Lispro Protamin/Lispro [Humalog Mix 50-50 Kwikpen] 15 unit SQ TID Ezetimibe 10 mg PO DAILY 04/29/17 Furosemide [Lasix -] 40 mg PO DAILY 04/29/17 Omeprazole 40 mg PO DAILY 04/29/17 Valacyclovir HCl [Valtrex -] 500 mg PO ASDIR 04/29/17 Family Disease History - Family Disease History Family Disease History: CA: Father (gastric cancer) Review of Systems - Review of Systems Cardiovascular: reports: Chest Pain, Shortness of Breath Respiratory: reports: Cough, SOB on Exertion Gastrointestinal: denies: Abdominal Pain Genitourinary: reports: No Symptoms Musculoskeletal: reports: Back Pain, Extremity Pain Physical Examination Vital Signs: Vital Signs Temperature 97.8 F 04/29/17 05:12 Pulse Rate 97 H 04/29/17 05:12 Respiratory Rate 18 04/29/17 05:12 Blood Pressure 125/83 04/29/17 05:12 O2 Sat by Pulse Oximetry (%) 96 04/29/17 03:00 Neck: Yes: Supple Cardiovascular: Yes: S1, S2 Respiratory: Yes: Regular, CTA Bilaterally Gastrointestinal: Yes: Normal Bowel Sounds, Soft. No: Tenderness Edema: No Labs: CBC, BMP 04/29/17 00:11 04/29/17 00:11 Problem List - Problems (1) Chest pain Assessment/Plan: OBTAIN RESULTS OF STRESS TEST FROM DR DRAKE OSUNA CE ECHO Code(s): R07.9 - CHEST PAIN, UNSPECIFIED (2) Back pain Assessment/Plan: GET PREVIOUS MRI PAIN MEDS Code(s): M54.9 - DORSALGIA, UNSPECIFIED (3) Atrial fibrillation Assessment/Plan: ON XARELTO RATE CONTROLLED Code(s): I48.91 - UNSPECIFIED ATRIAL FIBRILLATION Qualifiers: Atrial fibrillation type: paroxysmal Qualified Code(s): I48.0 - Paroxysmal atrial fibrillation (4) CAD (coronary artery disease) Assessment/Plan: CHECK LIPIDS ON ASA Code(s): I25.10 - ATHSCL HEART DISEASE OF [place] CORONARY ARTERY W/O ANG PCTRS Qualifiers: Coronary Disease-Associated Artery/Lesion type: [place] artery [place] vs. transplanted heart: [place] heart Associated angina: without angina Qualified Code(s): I25.10 - Atherosclerotic heart disease of [place] coronary artery without angina pectoris (5) Diabetes mellitus, insulin dependent (IDDM), uncontrolled Assessment/Plan: INSULIN BGM ENDO Code(s): E10.65 - TYPE 1 DIABETES MELLITUS WITH HYPERGLYCEMIA Qualifiers: Diabetes mellitus complication status: with neurologic complications Diabetes mellitus complication detail: with polyneuropathy Qualified Code(s): E10.42 - Type 1 diabetes mellitus with diabetic polyneuropathy
[2017-04-29] MEDS: INSULIN DETEMIR 100 UNITS/ML MDV SQ SCH (08:00)
[2017-04-29 09:32] LABS: URINE LEUK ESTERASE Negative (NEGATIVE)
[2017-04-29] MEDS ORDERED: [UNRECOGNIZED DRUG - OTHER] PO SCH (10:00)
[2017-04-29] MEDS ORDERED: OLMESARTAN MED PO SCH (10:00)
[2017-04-29] MEDS ORDERED: AMLODIPINE BES PO SCH (10:00)
[2017-04-29 10:28] LABS: BASOPHIL 0.8 % (0-2.0); EOSINOPHIL 3.2 % (0-4.5); MCH 31.5 pg (25.7-33.7); MEAN CELL VOLUME 92.8 fl (80-96); MEAN PLT VOLUME 9.5 fl (7.5-11.1); NEUTROPHILS 62.8 % (42.8-82.8); PLATELET COUNT 169 K/MM3 (134-434); RDW 12.5 % (11.9-15.9); WHITE BLOOD COUNT 8.4 K/mm3 (4.0-10.0)
[2017-04-29] MEDS: oxyCODONE HCL 5 MG TABLET PO PRN ×2 (10:47→17:51)
[2017-04-29] MEDS ORDERED: oxyCODONE HCL 5 MG TABLET ONE ×2 (10:47→17:50)
[2017-04-29] MEDS: SOTALOL HCL 80 MG TABLET (FP) PO SCH ×2 (10:48→23:13)
[2017-04-29] MEDS: ASPIRIN COATED 81 MG TABLET.EC PO SCH (10:49)
[2017-04-29] MEDS: VALSARTAN 160 MG TABLET (UD) PO SCH ×2 (10:49→11:34)
[2017-04-29] MEDS: TAMSULOSIN HCL 0.4 MG CAP.ER.24H (FP) PO SCH (10:49)
[2017-04-29] MEDS: RANOLAZINE E.R. 1,000 MG TABLET (FP) PO SCH ×2 (10:50→23:16)
[2017-04-29] MEDS: BUDESONIDE/FORMETEROL FUMARATE 160/4.5 mcg INHALER IH SCH ×3 (10:50→23:16)
[2017-04-29] MEDS: amLODIPine BESYLATE 5 MG TABLET (FP) PO SCH (10:50)
[2017-04-29] MEDS: PANTOPRAZOLE 40 MG TABLET (FP) PO SCH (10:50)
[2017-04-29] MEDS: POTASSIUM CHLORIDE TABS 20 MEQ TABLET.ER (FP) PO SCH (10:50)
[2017-04-29 11:10] LABS: ALBUMIN 3.4 g/dl (3.4-5.0); ALK PHOS 109 U/L (45-117); ANION GAP 7 (8-16); BILIRUBIN,TOTAL 0.4 mg/dL (0.2-1.0); CALCIUM 8.9 mg/dL (8.5-10.1); CHOLESTEROL 148 mg/dL (50-200); CO2 27 mmol/L (21-32); CPK 137 IU/L (39-308); CREATININE 0.9 mg/dL (0.7-1.3); GLUCOSE,RANDOM 204 mg/dL (74-106); SGOT/AST 9 U/L (15-37); SGPT/ALT 26 U/L (12-78); TOT PROT 6.5 g/dl (6.4-8.2); TROPONIN I < 0.02 ng/ml (0.00-0.05)
[2017-04-29] MEDS ORDERED: INSULIN (NOVOLOG) ASPART 100 UNITS/ML 10ML VIAL ONE ×2 (11:10→17:51)
[2017-04-29 12:04] VITALS: BMI 34.7
--- NOTE | 2017-04-29 12:46 | EKG ---
Test Reason : Blood Pressure : / mmHG Vent. Rate : 061 BPM Atrial Rate : 061 BPM P-R Int : 170 ms QRS Dur : 126 ms QT Int : 470 ms P-R-T Axes : -24 080 029 degrees QTc Int : 473 ms SINUS RHYTHM WITH PREMATURE ATRIAL COMPLEXES NON-SPECIFIC INTRA-VENTRICULAR CONDUCTION BLOCK CANNOT RULE OUT SEPTAL INFARCT (CITED ON OR BEFORE 28-APR-2017) ABNORMAL ECG WHEN COMPARED WITH ECG OF 28-APR-2017 23:23, PREMATURE ATRIAL COMPLEXES ARE NOW PRESENT Confirmed by HOMAR STRICKLAND, KENNETH ([id number]) on 04/29/2017 12:46:11 PM Referred By: Confirmed By:KENNETH GRAF MD
--- NOTE | 2017-04-29 13:03 | EKG ---
Test Reason : Blood Pressure : / mmHG Vent. Rate : 070 BPM Atrial Rate : 070 BPM P-R Int : 188 ms QRS Dur : 128 ms QT Int : 472 ms P-R-T Axes : 051 078 038 degrees QTc Int : 509 ms NORMAL SINUS RHYTHM NON-SPECIFIC INTRA-VENTRICULAR CONDUCTION BLOCK CANNOT RULE OUT SEPTAL INFARCT , AGE UNDETERMINED ABNORMAL ECG WHEN COMPARED WITH ECG OF 31-JUL-2016 11:13, MINIMAL CRITERIA FOR SEPTAL INFARCT ARE NOW PRESENT Confirmed by KENNETH GRAF MD ([id number]) on 04/29/2017 1:03:21 PM Referred By: Confirmed By:KENNETH GRAF MD
--- NOTE | 2017-04-29 14:07 | CON.CARD ---
Consult Consult Specialty:: Cardiology Referred by:: Loli Raza MD Reason for Consultation:: Chest pain - History of Present Illness Chief Complaint: Chest pain History of Present Illness: Patient is a 61 year old male with underlying history of CAD - non-obstructive, HT, hypercholesterolemia, type 2 diabetes mellitus, paroxysmal atrial fibrillation on Xarelto and history of obstructive sleep apnea presents with several days of intermittent pinching non-exertional reproducible left substernal chest wall without radiation of pain. He denies associated shortness of breath, palpitation, paroxysmal nocturnal dyspnea or orthopnea, near or true syncope or change in exercise capacity. Similar presentation to office 2016, sxs spontaneously resolving last few days. - Past Medical History Cardio/Vascular: Yes: AFIB, CAD (Non-obstructive), HTN, Hyperlipdemia Pulmonary: Yes: COPD, Sleep Apnea Gastrointestinal: Yes: GERD Endocrine: Yes: Diabetes Mellitus - Past Surgical History Past Surgical History: Yes: Tonsillectomy - Alcohol/Substance Use Hx Alcohol Use: No - Smoking History Smoking history: Current every day smoker Have you smoked in the past 12 months: Yes Aproximately how many cigarettes per day: 10 If you are a former smoker, when did you quit?: On Chantix Home Medications - Allergies Allergies/Adverse Reactions: Allergies Allergy/AdvReac Type Severity Reaction Status Date / Time No Known Allergies Allergy Verified 04/28/17 18:56 - Home Medications Home Medications: Ambulatory Orders Atorvastatin Ca [Lipitor] 20 mg PO DAILY 07/28/13 Bupropion HCl [Wellbutrin Xl -] 150 mg PO DAILY 07/28/13 Ranolazine [Ranexa -] 1,000 mg PO BID 07/28/13 Rivaroxaban [Xarelto -] 20 mg PO DAILY 07/28/13 Salmeterol/Fluticasone [Advair 250Mcg/50Mcg -] 1 inh PO DAILY 07/28/13 Sotalol HCl [Sotalol] 80 mg PO BID 07/28/13 Tamsulosin HCl 0.4 mg PO DAILY 07/28/13 Clobetasol Prop 0.05% Tp Oint [Temovate (Nf)] 60 gm NR DAILY 09/01/14 Amlodipine Bes/Olmesartan Med [Yamil 5-40 mg Tablet] 1 each PO DAILY 03/15/15 Glipizide/Metformin HCl [Glipizide-Metformin 5-500 mg] 1 each PO TID 03/15/15 Potassium Chloride [K-Dur] 20 meq PO DAILY 03/15/15 Insulin Lispro Protamin/Lispro [Humalog Mix 50-50 Kwikpen] 15 unit SQ TID Ezetimibe 10 mg PO DAILY 04/29/17 Furosemide [Lasix -] 40 mg PO DAILY 04/29/17 Omeprazole 40 mg PO DAILY 04/29/17 Valacyclovir HCl [Valtrex -] 500 mg PO ASDIR 04/29/17 Family Disease History - Family Disease History Family Disease History: CA: Father (gastric cancer) Review of Systems - Review of Systems Cardiovascular: reports: Chest Pain Vital Signs: Vital Signs Temperature 98.0 F 04/29/17 08:30 Pulse Rate 58 L 04/29/17 11:30 Respiratory Rate 18 04/29/17 11:30 Blood Pressure 113/50 04/29/17 11:30 O2 Sat by Pulse Oximetry (%) 97 04/29/17 11:30 Constitutional: Yes: No Distress, Calm Neck: Yes: Supple Respiratory: Yes: Regular, CTA Bilaterally Gastrointestinal: Yes: Normal Bowel Sounds, Soft Cardiovascular: Yes: Regular Rate and Rhythm JVD: No Carotid Bruit: No Heart Sounds: Yes: S1, S2 Edema: No - Other Data Labs, Other Data: CBC, BMP 04/29/17 09:50 04/29/17 09:50 INR, PTT INR 1.25 (0.82-1.09) H 04/29/17 00:11 Troponin, BNP 04/29/17 04/29/17 00:11 09:50 Troponin I < 0.02 < 0.02 B-Natriuretic Peptide 101.13 Troponin, BNP 04/29/17 04/29/17 00:11 09:50 Troponin I < 0.02 < 0.02 B-Natriuretic Peptide 101.13 NSR@61 PAC, QTc 473 msec Echo: Pending Ejection Fraction %: LVEF > or = 40 % Imaging - Results Chest X-ray: Report Reviewed (RLL ATX) Problem List - Problems (1) Chest pain Code(s): R07.9 - CHEST PAIN, UNSPECIFIED Qualifiers: Chest pain type: other chest pain Qualified Code(s): R07.89 - Other chest pain; R07.8 - Other chest pain (2) Atrial fibrillation Code(s): I48.91 - UNSPECIFIED ATRIAL FIBRILLATION Qualifiers: Atrial fibrillation type: paroxysmal Qualified Code(s): I48.0 - Paroxysmal atrial fibrillation (3) CAD (coronary artery disease) Code(s): I25.10 - ATHSCL HEART DISEASE OF [place] CORONARY ARTERY W/O ANG PCTRS Qualifiers: Coronary Disease-Associated Artery/Lesion type: [place] artery [place] vs. transplanted heart: [place] heart Associated angina: without angina Qualified Code(s): I25.10 - Atherosclerotic heart disease of [place] coronary artery without angina pectoris (4) Diabetes Code(s): E11.9 - TYPE 2 DIABETES MELLITUS WITHOUT COMPLICATIONS Qualifiers: Diabetes mellitus type: type 2 Diabetes mellitus complication status: with hyperglycemia Diabetes mellitus chef kitchen manager insulin use: without chef kitchen manager use Qualified Code(s): E11.65 - Type 2 diabetes mellitus with hyperglycemia (5) HTN (hypertension) Code(s): I10 - ESSENTIAL (PRIMARY) HYPERTENSION Qualifiers: Hypertension type: essential hypertension Qualified Code(s): I10 - Essential (primary) hypertension (6) Hypercholesterolemia Code(s): E78.0 - PURE HYPERCHOLESTEROLEMIA * DO NOT USE * (7) Sleep apnea Code(s): G47.30 - SLEEP APNEA, UNSPECIFIED Qualifiers: Sleep apnea type: obstructive Qualified Code(s): G47.33 - Obstructive sleep apnea (adult) (pediatric) (8) Diastolic dysfunction without heart failure Code(s): I51.9 - HEART DISEASE, UNSPECIFIED Assessment/Plan 04/29/2017 Echo: Normal LV size and fxn, mild MR 07/23/16 MPI: No ischemia, LVEF 66% 1. Atypical reproducible chest wall pain syndrome with underlying non- obstructive CAD similar to 03/27/17 office presentation 2. HTN 3. Hypercholesterolemia 4. Type 2 diabes mellitus 5. OSAS 6. Paroxysmal atrial fibrillation->SR 7. Exogenous obesity 8. Diastolic dysfunction PLAN: 1. Continue Xarelto 20 mg QD 2. Continue Sotalol 80 mg BID as tolerated 3. Continue Yamil 10/20 mg QD or equivalent and Lasix 40 qd 4. Continue Ranexa 1000 mg BID (was on this dose as outpatient) 5. Continue Lipitor 40 mg QHS 6. May d/c from CV-standpoint with f/u with Dr. High in office, ruled out for [place] 10. cPAP at home, thank you for consultative opportunity
[2017-04-29] MEDS: CYCLOBENZAPRINE HCL 10 MG TABLET (FP) PO SCH ×2 (14:08→23:13)
[2017-04-29] MEDS ORDERED: RIVAROXABAN 20 MG TABLET PO SCH (18:00)
[2017-04-29] MEDS ORDERED: traZODone HCL 50 MG TABLET (FP) PO SCH (22:00)
[2017-04-29] MEDS ORDERED: ATORVASTATIN CA 20 MG TABLET (FP) PO SCH (22:00)
[2017-04-29] MEDS ORDERED: RANOLAZINE E.R. 500 MG TABLET (FP) ONE (23:09)
[2017-04-30] MEDS: metFORMIN HCL 500 MG TABLET (FP) PO SCH (06:37)
[2017-04-30] MEDS: CYCLOBENZAPRINE HCL 10 MG TABLET (FP) PO SCH (06:37)
[2017-04-30] MEDS: glipiZIDE 5 MG TABLET (FP) PO SCH (06:38)
[2017-04-30] MEDS: INSULIN DETEMIR 100 UNITS/ML MDV SQ SCH (06:38)
[2017-04-30] MEDS: INSULIN SLIDING SCALE (NOVOLOG) 1 VIAL SQ SCH ×2 (06:39→12:11)
[2017-04-30] MEDS ORDERED: RANOLAZINE E.R. 500 MG TABLET (FP) ONE (09:44)
[2017-04-30] MEDS ORDERED: PT OWN MED DRAWER 7, Y5N ONE ×2 (09:46→10:17)
[2017-04-30 09:56] VITALS: BP 120/60; PULSE 72
[2017-04-30] MEDS ORDERED: EZETIMIBE 10 MG TABLET (FP) PO SCH (10:00)
[2017-04-30] MEDS ORDERED: PATIENT'S OWN MEDICATION (NON-FORMULARY) (Salmeterol/Fluticasone [Advair 250mcg/50mcg -] 1 PO SCH (10:00)
[2017-04-30] MEDS ORDERED: FUROSEMIDE 40 MG TABLET (FP) PO SCH (10:00)
[2017-04-30] MEDS: amLODIPine BESYLATE 5 MG TABLET (FP) PO SCH (10:02)
[2017-04-30] MEDS: ASPIRIN COATED 81 MG TABLET.EC PO SCH (10:02)
[2017-04-30] MEDS: POTASSIUM CHLORIDE TABS 20 MEQ TABLET.ER (FP) PO SCH (10:02)
[2017-04-30] MEDS: TAMSULOSIN HCL 0.4 MG CAP.ER.24H (FP) PO SCH (10:02)
[2017-04-30] MEDS: VALSARTAN 160 MG TABLET (UD) PO SCH (10:03)
[2017-04-30] MEDS: PANTOPRAZOLE 40 MG TABLET (FP) PO SCH (10:03)
[2017-04-30] MEDS: SOTALOL HCL 80 MG TABLET (FP) PO SCH (10:03)
[2017-04-30] MEDS: RANOLAZINE E.R. 1,000 MG TABLET (FP) PO SCH (10:04)
[2017-04-30] MEDS: BUDESONIDE/FORMETEROL FUMARATE 160/4.5 mcg INHALER IH SCH (10:04)
[2017-04-30 10:41] VITALS: TEMP 98.2
--- NOTE | 2017-04-30 11:11 | PN ---
Progress Note, Physician Chief Complaint: Events noted Denies chest pain, SOB or palpitations History of Present Illness: Patient was seen and examined. Awake and alert. Chart was reviewed Not ind distress - Current Medication List Current Medications: Active Medications Amlodipine Besylate (Norvasc -) 5 mg PO DAILY [facility] Last Admin: 04/30/17 10:02 Dose: 5 mg Aspirin (Ecotrin -) 81 mg PO DAILY [facility] Last Admin: 04/30/17 10:02 Dose: 81 mg Atorvastatin Calcium (Lipitor -) 20 mg PO HS [facility] Last Admin: 04/29/17 23:14 Dose: 20 mg Budesonide/Formoterol Fumarate (Symbicort 160/4.5mcg -) 2 puff IH BID [facility] Last Admin: 04/30/17 10:04 Dose: 2 puff Bupropion HCl (Wellbutrin Xl -) 150 mg PO DAILY [facility] Last Admin: 04/30/17 10:03 Dose: 150 mg Cyclobenzaprine HCl (Flexeril -) 5 mg PO TID [facility] Last Admin: 04/30/17 06:37 Dose: 5 mg Ezetimibe (Zetia -) 10 mg PO DAILY [facility] Last Admin: 04/30/17 10:05 Dose: 10 mg Furosemide (Lasix -) 40 mg PO DAILY [facility] Last Admin: 04/30/17 10:03 Dose: 40 mg Glipizide (Glucotrol -) 5 mg PO BID@0700,1630 [facility] Last Admin: 04/30/17 06:38 Dose: 5 mg Insulin Aspart (Novolog Vial Sliding Scale -) 1 vial SQ ACHS [facility] PRN Reason: Protocol Last Admin: 04/30/17 06:39 Dose: 5 units Insulin Detemir (Levemir Vial) 50 units SQ AM [facility] Last Admin: 04/30/17 06:38 Dose: 50 units Metformin HCl (Glucophage -) 1,000 mg PO BID@0700,1630 [facility] Last Admin: 04/30/17 06:37 Dose: 1,000 mg Oxycodone HCl (Roxicodone -) 5 mg PO Q6H PRN PRN Reason: PAIN Last Admin: 04/29/17 17:51 Dose: 5 mg Pantoprazole Sodium (Protonix -) 40 mg PO DAILY [facility] Last Admin: 04/30/17 10:03 Dose: 40 mg Potassium Chloride (K-Dur -) 20 meq PO DAILY [facility] Last Admin: 04/30/17 10:02 Dose: 20 meq Ranolazine (Ranexa -) 1,000 mg PO BID [facility] Last Admin: 04/30/17 10:04 Dose: 1,000 mg Rivaroxaban (Xarelto -) 20 mg PO DAILY@1800 [facility] Last Admin: 04/29/17 18:31 Dose: 20 mg Sotalol HCl (Betapace -) 80 mg PO BID [facility] Last Admin: 04/30/17 10:03 Dose: 80 mg Tamsulosin HCl (Flomax -) 0.4 mg PO DAILY [facility] Last Admin: 04/30/17 10:02 Dose: 0.4 mg Trazodone HCl (Desyrel -) 50 mg PO HS [facility] Last Admin: 04/29/17 23:13 Dose: 50 mg Valsartan (Diovan -) 320 mg PO DAILY [facility] Last Admin: 04/30/17 10:03 Dose: 320 mg - Objective Vital Signs: Vital Signs Temperature 98.2 F 04/30/17 10:40 Pulse Rate 72 04/30/17 09:48 Respiratory Rate 20 04/30/17 09:48 Blood Pressure 120/60 04/30/17 09:48 O2 Sat by Pulse Oximetry (%) 95 04/30/17 05:00 Eyes: Yes: PERRL HENT: Yes: Atraumatic Neck: Yes: Supple Cardiovascular: Yes: Regular Rate and Rhythm, S1, S2 Respiratory: Yes: CTA Bilaterally Gastrointestinal: Yes: Normal Bowel Sounds, Soft. No: Tenderness Edema: No Additional Findings/Remarks: - Review of Systems Constitutional: denies: Chills, Fever Cardiovascular: reports: Chest Pain. denies: Palpitations, Shortness of Breath Respiratory: denies: Cough, Hemoptysis, Orthopnea, PND, SOB Gastrointestinal: denies: Abdominal Pain, Constipation, Diarrhea, Melena, Nausea , Rectal Bleeding, Vomiting Genitourinary: denies: Dysuria Musculoskeletal: denies: Joint Pain Neurological: denies: Dizziness, Headache, Seizure, Syncope Labs: CBC, BMP 04/29/17 09:50 04/29/17 09:50 INR, PTT INR 1.25 (0.82-1.09) H 04/29/17 00:11 Problem List - Problems (1) Atrial fibrillation Code(s): I48.91 - UNSPECIFIED ATRIAL FIBRILLATION Qualifiers: Atrial fibrillation type: paroxysmal Qualified Code(s): I48.0 - Paroxysmal atrial fibrillation (2) CAD (coronary artery disease) Code(s): I25.10 - ATHSCL HEART DISEASE OF [place] CORONARY ARTERY W/O ANG PCTRS Qualifiers: Coronary Disease-Associated Artery/Lesion type: [place] artery [place] vs. transplanted heart: [place] heart (3) Chest pain Code(s): R07.9 - CHEST PAIN, UNSPECIFIED Qualifiers: Chest pain type: other chest pain Qualified Code(s): R07.89 - Other chest pain; R07.8 - Other chest pain (4) Diabetes Code(s): E11.9 - TYPE 2 DIABETES MELLITUS WITHOUT COMPLICATIONS Qualifiers: Diabetes mellitus type: type 2 Diabetes mellitus complication status: with hyperglycemia Diabetes mellitus mcfp insulin use: without intermediate card tender use Qualified Code(s): E11.65 - Type 2 diabetes mellitus with hyperglycemia (5) Diastolic dysfunction without heart failure Code(s): I51.9 - HEART DISEASE, UNSPECIFIED (6) HTN (hypertension) Code(s): I10 - ESSENTIAL (PRIMARY) HYPERTENSION Qualifiers: Hypertension type: essential hypertension Qualified Code(s): I10 - Essential (primary) hypertension (7) Hypercholesterolemia Code(s): E78.0 - PURE HYPERCHOLESTEROLEMIA * DO NOT USE * (8) Sleep apnea Code(s): G47.30 - SLEEP APNEA, UNSPECIFIED Qualifiers: Sleep apnea type: obstructive Qualified Code(s): G47.33 - Obstructive sleep apnea (adult) (pediatric) Assessment/Plan 1. Atypical reproducible chest wall pain syndrome with underlying non- obstructive CAD 2. HTN 3. Hypercholesterolemia 4. Type 2 diabes mellitus 5. OSAS 6. Paroxysmal atrial fibrillation->SR 7. Exogenous obesity 8. Diastolic dysfunction PLAN: 1. Continue Xarelto 20 mg QD 2. Continue Sotalol 80 mg BID as tolerated 3. Continue Yamil 10/20 mg QD or equivalent and Lasix 40 qd 4. Continue Ranexa 1000 mg BID (was on this dose as outpatient) 5. Continue Lipitor 40 mg QHS 6. May discharge home from CV-standpoint with f/u with me in the office. No need for cardiac catheterization at this time 7. CPAP Further plans are to follow Harsha High MD
--- NOTE | 2017-04-30 11:35 | PN ---
Progress Note, Physician Chief Complaint: chest pain History of Present Illness: NAD, in bed Has mild chronic back pain- has seen Neurology outpatient in the past seen by cardiology, cleared to be discharged - Current Medication List Current Medications: Active Medications Amlodipine Besylate (Norvasc -) 5 mg PO DAILY [facility] Last Admin: 04/30/17 10:02 Dose: 5 mg Aspirin (Ecotrin -) 81 mg PO DAILY [facility] Last Admin: 04/30/17 10:02 Dose: 81 mg Atorvastatin Calcium (Lipitor -) 20 mg PO HS [facility] Last Admin: 04/29/17 23:14 Dose: 20 mg Budesonide/Formoterol Fumarate (Symbicort 160/4.5mcg -) 2 puff IH BID [facility] Last Admin: 04/30/17 10:04 Dose: 2 puff Bupropion HCl (Wellbutrin Xl -) 150 mg PO DAILY [facility] Last Admin: 04/30/17 10:03 Dose: 150 mg Cyclobenzaprine HCl (Flexeril -) 5 mg PO TID [facility] Last Admin: 04/30/17 06:37 Dose: 5 mg Ezetimibe (Zetia -) 10 mg PO DAILY [facility] Last Admin: 04/30/17 10:05 Dose: 10 mg Furosemide (Lasix -) 40 mg PO DAILY [facility] Last Admin: 04/30/17 10:03 Dose: 40 mg Glipizide (Glucotrol -) 5 mg PO BID@0700,1630 [facility] Last Admin: 04/30/17 06:38 Dose: 5 mg Insulin Aspart (Novolog Vial Sliding Scale -) 1 vial SQ ACHS [facility] PRN Reason: Protocol Last Admin: 04/30/17 06:39 Dose: 5 units Insulin Detemir (Levemir Vial) 50 units SQ AM [facility] Last Admin: 04/30/17 06:38 Dose: 50 units Metformin HCl (Glucophage -) 1,000 mg PO BID@0700,1630 [facility] Last Admin: 04/30/17 06:37 Dose: 1,000 mg Oxycodone HCl (Roxicodone -) 5 mg PO Q6H PRN PRN Reason: PAIN Last Admin: 04/29/17 17:51 Dose: 5 mg Pantoprazole Sodium (Protonix -) 40 mg PO DAILY [facility] Last Admin: 04/30/17 10:03 Dose: 40 mg Potassium Chloride (K-Dur -) 20 meq PO DAILY [facility] Last Admin: 04/30/17 10:02 Dose: 20 meq Ranolazine (Ranexa -) 1,000 mg PO BID [facility] Last Admin: 04/30/17 10:04 Dose: 1,000 mg Rivaroxaban (Xarelto -) 20 mg PO DAILY@1800 [facility] Last Admin: 04/29/17 18:31 Dose: 20 mg Sotalol HCl (Betapace -) 80 mg PO BID [facility] Last Admin: 04/30/17 10:03 Dose: 80 mg Tamsulosin HCl (Flomax -) 0.4 mg PO DAILY [facility] Last Admin: 04/30/17 10:02 Dose: 0.4 mg Trazodone HCl (Desyrel -) 50 mg PO HS [facility] Last Admin: 04/29/17 23:13 Dose: 50 mg Valsartan (Diovan -) 320 mg PO DAILY [facility] Last Admin: 04/30/17 10:03 Dose: 320 mg - Objective Vital Signs: Vital Signs Temperature 98.2 F 04/30/17 10:40 Pulse Rate 72 04/30/17 09:48 Respiratory Rate 20 04/30/17 09:48 Blood Pressure 120/60 04/30/17 09:48 O2 Sat by Pulse Oximetry (%) 95 04/30/17 05:00 Constitutional: Yes: Well Nourished, No Distress, Calm Cardiovascular: Yes: Regular Rate and Rhythm Respiratory: Yes: Regular Musculoskeletal: Yes: WNL Extremities: Yes: WNL Edema: No Peripheral Pulses WNL: Yes Neurological: Yes: Alert, Oriented Psychiatric: Yes: Alert, Oriented Labs: CBC, BMP 04/29/17 09:50 04/29/17 09:50 INR, PTT INR 1.25 (0.82-1.09) H 04/29/17 00:11 Problem List - Problems (1) Back pain Assessment/Plan: -Chronic -Follow up with Neurology outpatient Code(s): M54.9 - DORSALGIA, UNSPECIFIED (2) Chest pain Assessment/Plan: -Echo-unremarkable -seen by cardiology -cleared for discharge Code(s): R07.9 - CHEST PAIN, UNSPECIFIED Qualifiers: Chest pain type: other chest pain Qualified Code(s): R07.89 - Other chest pain; R07.8 - Other chest pain (3) Diastolic dysfunction without heart failure Assessment/Plan: -Echo done with EF-66% -on Ranexa Code(s): I51.9 - HEART DISEASE, UNSPECIFIED Assessment/Plan see problem list
[2017-04-30] MEDS ORDERED: INSULIN (NOVOLOG) ASPART 100 UNITS/ML 10ML VIAL ONE (12:10)
--- NOTE | 2017-05-07 11:42 | EKG ---
Test Reason : Blood Pressure : / mmHG Vent. Rate : 067 BPM Atrial Rate : 067 BPM P-R Int : 162 ms QRS Dur : 130 ms QT Int : 444 ms P-R-T Axes : -26 067 029 degrees QTc Int : 469 ms SINUS RHYTHM WITH PREMATURE SUPRAVENTRICULAR COMPLEXES AND WITH OCCASIONAL PREMATURE VENTRICULAR COMPLEXES NON-SPECIFIC INTRA-VENTRICULAR CONDUCTION BLOCK ABNORMAL ECG WHEN COMPARED WITH ECG OF 28-APR-2017 23:23, PREMATURE VENTRICULAR COMPLEXES ARE NOW PRESENT Confirmed by AMBIKA SORENSON MD ([id number]) on 05/07/2017 11:42:21 AM Referred By: NIKUNJ DENTON DR Confirmed By:AMBIKA SORENSON MD
== END 2017-04-30 14:55 | disposition home or self-care (01) | DRG 303 ==
LOC: JER 18:51 → JERBED 04-29 00:11 → UNDOADMIN 04-29 01:16 → JERBED 04-29 01:16 → J5S 04-29 21:28
PROVIDERS: ADMIT Family Medicine; ATTEND Family Medicine
DX: I25.10 Atherosclerotic heart disease of native coronary artery without angina pectoris (principal); M54.9 Dorsalgia, unspecified; E66.09 Other obesity due to excess calories; Z68.34 Body mass index [BMI] 34.0-34.9, adult; E78.5 Hyperlipidemia, unspecified; F17.210 Nicotine dependence, cigarettes, uncomplicated; E10.65 Type 1 diabetes mellitus with hyperglycemia; G47.33 Obstructive sleep apnea (adult) (pediatric); I10 Essential (primary) hypertension; I48.0 Paroxysmal atrial fibrillation; R07.89 Other chest pain; Z79.4 Long term (current) use of insulin
CPT/HCPCS: 36415; 71010-TC; 80053; 80061; 81003; 82550; 82553; 83036; 83690; 83721; 83735; 83880; 84484; 85025; 85610; 93005; 93010; 93306-TC; 99285-25

== ENCOUNTER 2018-02-15 21:29 | Inpatient (IN) | payer OTHER ==
--- NOTE | 2018-02-15 21:50 | PDOC ---
Rapid Medical Evaluation Time Seen by Provider: 02/15/18 21:48 Medical Evaluation: Allergies Allergy/AdvReac Type Severity Reaction Status Date / Time No Known Allergies Allergy Verified 04/28/17 18:56 02/15/18 21:48 This patient had a brief in-person evaluation by me The patient has a chief complaint of: dizziness today. Patient reports feeling dizzy today and then having a near syncope event, falling to the floor Denies loc, complaining of lightheadedness The pertinent physical findings are: NAD, abrasion to left side of face diaphoretic even and unlabored breathing bipedal edema The following orders have been placed: labs, ekg, portable chest ordered This patient will proceed to the ED for further evaluation 02/15/18 21:51
--- NOTE | 2018-02-15 22:15 | PDOC ---
History of Present Illness - General Chief Complaint: Injury Stated Complaint: FALL/INJURY Time Seen by Provider: 02/15/18 21:48 History Source: Patient Exam Limitations: No Limitations - History of Present Illness Initial Comments: 02/15/18 22:14 62 YOM with h/o A-fib on Xarelto, PVCs, CAD, CHF, COPD, DM, HTN, HLD, sleep apnea, and pancreatitis p/w apparent syncopal episode today at about 9 pm while he was walking outside, falling onto his left face. He cannot recall the exact events leading up to the fall and just remembers becoming lightheaded/unsteady on his feet and then awakening on the ground. He felt normal for a short time afterward but just DEVICE ENGINEER to the ED became SOB and had palpitations and chest discomfort like his normal runs of PVCs. He additionally notes unchanged chronic low back and neck pain, but otherwise denies any new symptoms (no f/c/n/ v/d, abdominal pain, focal weakness, headache, vision changes, etc). PCP is Dr. Garza. Past History - Past Medical History Allergies/Adverse Reactions: Allergies Allergy/AdvReac Type Severity Reaction Status Date / Time No Known Allergies Allergy Verified 02/15/18 21:54 Home Medications: Ambulatory Orders Bupropion HCl [Wellbutrin Xl -] 150 mg PO DAILY 07/28/13 Ranolazine [Ranexa -] 1,000 mg PO BID 07/28/13 Rivaroxaban [Xarelto -] 20 mg PO DAILY 07/28/13 Salmeterol/Fluticasone [Advair 250Mcg/50Mcg -] 1 inh PO DAILY 07/28/13 Sotalol HCl [Sotalol] 80 mg PO BID 07/28/13 Tamsulosin HCl 0.4 mg PO DAILY 07/28/13 Amlodipine Bes/Olmesartan Med [Yamil 5-40 mg Tablet] 1 each PO DAILY 03/15/15 Potassium Chloride [K-Dur] 20 meq PO DAILY 03/15/15 Insulin Lispro Protamin/Lispro [Humalog Mix 50-50 Kwikpen] 15 unit SQ TID Ezetimibe 10 mg PO DAILY 04/29/17 Furosemide [Lasix -] 40 mg PO DAILY 04/29/17 Omeprazole 40 mg PO DAILY 04/29/17 Valacyclovir HCl [Valtrex -] 500 mg PO ASDIR 04/29/17 Atorvastatin Ca [Lipitor] 40 mg PO HS #30 tablet 04/30/17 Tiotropium [place] [Spiriva] 1 inh PO DAILY 02/16/18 Anemia: No Asthma: No Cancer: No Cardiac Disorders: Yes (A-Fib, PVC) CVA: No COPD: Yes CHF: No Dementia: No Diabetes: Yes GI Disorders: Yes (gasritis) Disorders: No HTN: Yes Hypercholesterolemia: Yes Liver Disease: No Seizures: No Thyroid Disease: Yes (hypothyroid) Other medical history: sleep apnea, - Surgical History Abdominal Surgery: No Appendectomy: No Cardiac Surgery: Yes (Angio-plasty) Cholecystectomy: No Lung Surgery: No Neurologic Surgery: No Orthopedic Surgery: Yes (both feet bone removal) - Immunization History Immunization Up to Date: Yes - Suicide/Smoking/Psychosocial Hx Smoking Status: No Smoking History: Current every day smoker Have you smoked in the past 12 months: Yes Number of Cigarettes Smoked Daily: 10 If you are a former smoker, when did you quit?: On [employer] Information on smoking cessation initiated: No 'Breaking Loose' booklet given: 04/28/17 Hx Alcohol Use: No Drug/Substance Use Hx: No Substance Use Type: None Hx Substance Use Treatment: No *Physical Exam - Vital Signs Last Vital Signs Temp Pulse Resp BP Pulse Ox 68 17 162/83 97 02/15/18 21:50 02/15/18 21:50 02/15/18 21:50 02/15/18 21:50 - Physical Exam General Appearance: Yes: Nourished, Appropriately Dressed, Obese, Other ( Pleasant adult male, multiple superficial abrasions noted to left upper>lower lips (not including mucosa) and cheek, answering questions appropriately). No: Apparent Distress HEENT: positive: EOMI, LES, Normal Voice, Hearing Grossly Normal, Other (no scalp contusion, no cephalohematoma, no scalp laceration, no raccoon eyes, no jones sign, no hemotympanum, no CSF rhinorrhea/otorrhea). negative: Scleral Icterus (R), Scleral Icterus (L), Nasal Congestion Neck: positive: Trachea midline, Supple. negative: Tender, Rigid Respiratory/Chest: positive: Lungs Clear, Normal Breath Sounds. negative: Respiratory Distress, Crackles, Rhonchi, Stridor, Wheezing Cardiovascular: positive: Regular Rhythm, Regular Rate. negative: Murmur Gastrointestinal/Abdominal: positive: Normal Bowel Sounds, Soft. negative: Tender, Organomegaly, Pulsatile Mass, Guarding Musculoskeletal: positive: Normal Inspection. negative: Decreased Range of Motion, Vertebral Tenderness Extremity: positive: Normal Capillary Refill, Normal Inspection, Normal Range of Motion. negative: Tender, Cyanosis Integumentary: positive: Normal Color, Dry, Warm. negative: Erythema, Rash, Bruising Neurologic: positive: data base administrator II-XII NML intact, Fully Oriented, Alert, Normal Mood/ Affect, Normal Response, Motor Strength 5/5 Heart Score/ECG Review #1 02/15/18 22:02 Normal sinus rhythm, rate 71, normal axis, QTc 482, nonspecific intraventricular conduction block, no ischemic ST-T changes ED Treatment Course - LABORATORY CBC & Chemistry Diagram: 02/17/18 06:00 02/17/18 06:00 - RADIOLOGY Radiology Studies Ordered: Category Date Time Status HEAD CT WITHOUT CONTRAST [CT] Stat CT Scan 02/15/18 22:08 Ordered Medical Decision Making - Medical Decision Making 02/15/18 22:12 Adult male with h/o CHF, DM, HTN, A-fib on Xarelto p/w palpitations, SOB, chest discomfort. Fall today with little recollection of the event, felt normal afterwards, consistent with syncope. Initial Vital Signs Pulse Resp BP Pulse Ox 68 17 162/83 97 02/15/18 21:50 02/15/18 21:50 02/15/18 21:50 02/15/18 21:50 Exam: As noted in Physical Exam section. DDX IBNLT: reflex (neurocardiogenic e.g. vasovagal; situational e.g. micturition /post-tussive/post-exercise; carotid sinus hypersensitivity), cardiovascular ( arrhythmia e.g. sick sinus syndrome, conduction abnormality e.g. SVT/WPW/[place] /long QT/ventricular dysrhythmia, structural heart disease e.g. valvular disease /HOCM/left atrial myxoma/[place]; PE; cardiac tamponade), orthostatic hypotension ( volume depletion e.g. hemorrhage/vomiting/diarrhea/diuretics; drugs e.g. vasodilators/[id number]-bbtjicyp/clonidine/phenothiazines like Haldol; autonomic failure e.g. spinal cord injury/DM neuropathy/Parkinsons), or other causes not true syncope d/t subsequent neuro deficit (TIA/CVA, SAH, seizure, metabolic/ electrolyte derangement e.g. DM/DKA tend to cause gradual slide into unconsciousness), infection/sepsis/vitals abnormalities, pulmonary HTN, etc. W/U ordered: EKG CXR Head CT CBCD CMP Troponin UA UCx TX ordered: IVF, O2, monitor EKG: Reviewed; results as noted in ECG Review section. CXR: Poor study but possible cardiomegaly, possible congestive changes, no focal consolidations. CT Head: Nothing acute. Laboratory Tests 02/15/18 02/16/18 02/16/18 22:01 00:20 00:20 WBC 8.8 RBC 4.38 Hgb 13.7 Hct 40.1 MCV 91.6 MCH 31.3 MCHC 34.2 RDW 12.6 Plt Count 178 MPV 9.1 Absolute Neuts (auto) 6.0 Neutrophils % 68.8 Lymphocytes % 19.9 Monocytes % 7.4 Eosinophils % 3.0 Basophils % 0.9 Nucleated RBC % 0 PT with INR 13.40 H INR 1.19 H PTT (Actin FS) 32.9 Sodium Potassium Chloride Carbon Dioxide Anion Gap BUN Creatinine Creat Clearance w eGFR POC Glucometer [phone] Random Glucose Calcium Total Bilirubin AST ALT Alkaline Phosphatase Troponin I B-Natriuretic Peptide Total Protein Albumin TSH Alcohol, Quantitative 02/16/18 02/16/18 02/16/18 00:20 00:20 00:20 WBC RBC Hgb Hct MCV MCH MCHC RDW Plt Count MPV Absolute Neuts (auto) Neutrophils % Lymphocytes % Monocytes % Eosinophils % Basophils % Nucleated RBC % PT with INR INR PTT (Actin FS) Sodium 140 Potassium 4.2 Chloride 106 Carbon Dioxide 29 Anion Gap 5 L BUN 17 Creatinine 0.9 Creat Clearance w eGFR > 60 POC Glucometer Random Glucose 292 H Calcium 8.5 Total Bilirubin 0.3 AST 26 ALT 35 Alkaline Phosphatase 110 Troponin I < 0.02 B-Natriuretic Peptide 68.65 Total Protein 6.5 Albumin 3.2 L TSH 1.52 D Alcohol, Quantitative < 5.0 Reassessment: Patient states slight pain to left lower chest, Toradol ordered. Vital Signs Temperature 98.4 F 02/16/18 00:02 Pulse Rate 63 02/16/18 02:47 Respiratory Rate 22 02/16/18 02:47 Blood Pressure 141/76 02/16/18 02:47 O2 Sat by Pulse Oximetry (%) 99 02/16/18 02:47 02/16/18 04:40 Per [place] Syncope Rule: Pt is high risk for ventricular dysrhythmia and/ or . The Pt is unsafe for discharge at this time. They require further hospital observation, workup, and treatment. Microblog sent to [facility] for admission. 02/16/18 05:09 Spoke BILINGUAL BRANCH MANAGER Evelyn Aggarwal; in agreement patient to be admitted to [facility] Obs. Decision to Admit order updated with Dr. Long's name. *DC/Admit/Observation/Transfer Diagnosis at time of Disposition: Fall from ground level Syncope Qualifiers: Syncope type: unspecified Qualified Code(s): R55 - Syncope and collapse Facial abrasion Qualifiers: Encounter type: initial encounter Qualified Code(s): S00.81XA - Abrasion of other part of head, initial encounter CHF (congestive heart failure) Qualifiers: Heart failure type: unspecified Heart failure chronicity: unspecified Qualified Code(s): I50.9 - Heart failure, unspecified - Discharge Dispostion Condition at time of disposition: Guarded Decision to Admit order: Yes - Referrals - Patient Instructions - Post Discharge Activity
--- NOTE | 2018-02-15 23:52 | PDOC ---
Attending Attestation - HPI HPI: 02/15/18 23:52 The patient is a 62 year old male with a significant past medical history of A- fib on Xarelto, PVCs, CAD, CHF, COPD, DM, HTN, HLD, sleep apnea, and pancreatitis who presents to the ER with a syncopal episode at approximately 9PM today. Patient states he was walking outside and subsequently fell onto his face. Patient reports feeling lightheaded prior to the fall and then woke up on the ground. Patient is now complaining of shortness of breath, intermittent palpitations, and chest discomfort in the ER. Patient states these symptoms are similar to his PVCs. The patient denies chest pain, headache, and dizziness. Denies fever, chills, nausea, vomit, diarrhea, and constipation. Denies dysuria, frequency, urgency, and hematuria. Allergies: NKA Past surgical history: No reported alcohol, drug, or cigarette use. Social history: None reported. PCP: Dr. Garza <Lore Teague - Last Filed: 02/15/18 23:52> - Resident Resident Name: Mariam Lomeli - ED Attending Attestation I have performed the following: I have examined & evaluated the patient, The case was reviewed & discussed with the resident, I agree w/resident's findings & plan, Exceptions are as noted - Physicial Exam PE: 02/16/18 03:27 awake alert face with superficial abrasions left side. no bony step off. no jaw malocclusion. lungs clear bilaterally. left chest wall ttp. no bony step off or crepitus. heart reg. no mrg. abd soft obese, nontender. ext wwp no edema. nuero 5/5 all four ext. 02/16/18 03:31 - Medical Decision Making 02/16/18 03:29 62 yo male h/o htn afib dm pvc cad here wiht syncope. differential dyshrtymia, dehydration, anemia, traumatic ich. resting tremor right hand , otherwise intact. plan cxr r/o fx, or infection labs ekg trop . due to mutliple problems pt high risk for cardiac event will admit to telemetry. <Jennifer Horner - Last Filed: 02/16/18 03:31> Heart Score/ECG Review #1 General ECG Interpretation: Sinus Rhythm, Normal Rate (71), Normal Intervals, No acute ischemic changes Compared to previous ECG there are: Other (nonspecific block no st elevation or depression. sinus) <Jennifer Horner - Last Filed: 02/16/18 03:31>
[2018-02-16] MEDS ORDERED: ACETAMINOPHEN 500 MG TABLET (FP) PO ONE (00:15)
[2018-02-16 00:35] LABS: BASO % 0.9 % (0-2.0); HEMATOCRIT 40.1 % (35.4-49); HEMOGLOBIN 13.7 GM/dL (11.7-16.9); LYMPH % 19.9 % (8-40); MCH 31.3 pg (25.7-33.7); MCHC 34.2 g/dl (32.0-35.9); MEAN CELL VOLUME 91.6 fl (80-96); MEAN PLT VOLUME 9.1 fl (7.5-11.1); MONO % 7.4 % (3.8-10.2); NEUT % 68.8 % (42.8-82.8); PLATELET COUNT 178 K/MM3 (134-434); RBC 4.38 M/mm3 (4.00-5.60); RDW 12.6 % (11.9-15.9); WHITE BLOOD COUNT 8.8 K/mm3 (4.0-10.0)
[2018-02-16] MEDS ORDERED: ACETAMINOPHEN 325 MG TABLET (FP) ONE (00:44)
[2018-02-16 00:57] LABS: ALBUMIN 3.2 g/dl (3.4-5.0); ANION GAP 5 MMOL/L (8-16); BLOOD UREA NITROGEN 17 mg/dL (7-18); CALCIUM 8.5 mg/dL (8.5-10.1); CHLORIDE 106 mmol/L (98-107); CO2 29 mmol/L (21-32); CREATININE 0.9 mg/dL (0.55-1.3); GLUCOSE,RANDOM 292 mg/dL (74-106); SGPT/ALT 35 U/L (13-61); SODIUM 140 mmol/L (136-145)
[2018-02-16 00:58] LABS: INR 1.19 (0.83-1.09); PROTHROMBIN TIME (PATIENT) 13.4 SEC (9.7-13.0)
[2018-02-16 01:00] LABS: ACTIVATED PTT 32.9 SECONDS (25.2-36.5)
[2018-02-16 01:01] LABS: ALK PHOS 110 U/L (45-117); BILIRUBIN,TOTAL 0.3 mg/dL (0.2-1); N-TERMINAL BNP 68.65 pg/ml (5-125); TOT PROT 6.5 g/dl (6.4-8.2)
[2018-02-16 01:05] LABS: POTASSIUM 4.2 mmol/L (3.5-5.1); SGOT/AST 26 U/L (15-37)
[2018-02-16] MEDS ORDERED: KETOROLAC TROMETHAMINE 30 MG/1 ML VIAL IVPUSH ONE (04:18)
[2018-02-16] MEDS ORDERED: KETOROLAC TROMETHAMINE 30 MG/1 ML VIAL ONE (04:32)
--- NOTE | 2018-02-16 05:51 | HP ---
Admitting History and Physical - Primary Care Physician PCP: Dirk Garza - Admission Chief Complaint: Syncope History of Present Illness: This is a 62 y/o man with a PMHx of: CAD, CHF, Afib (on Xarelto). Who presents to the ED s/p Syncope x 21:00 last night, with no memory recall. He reports becoming lightheaded with an unsteady gait, then awakening on the ground. He reports having SOB with palpitations, chest discomfort before arrival to the ED. Patient reports chronic back and neck pain no worsening since the fall. Patient denies fever, chills, cough, AP, N/V/D, constipation, dysuria. History Source: Patient Limitations to Obtaining History: No Limitations - Past Medical History Cardiovascular: Yes: AFIB, CAD (Non-obstructive), HTN, Hyperlipdemia Pulmonary: Yes: COPD, Sleep Apnea Gastrointestinal: Yes: GERD Endocrine: Yes: Diabetes Mellitus - Past Surgical History Past Surgical History: Yes: Tonsillectomy - Smoking History Smoking history: Current every day smoker Have you smoked in the past 12 months: Yes Aproximately how many cigarettes per day: 10 If you are a former smoker, when did you quit?: On Chantix - Alcohol/Substance Use Hx Alcohol Use: No Home Medications - Allergies Allergies/Adverse Reactions: Allergies Allergy/AdvReac Type Severity Reaction Status Date / Time No Known Allergies Allergy Verified 02/15/18 21:54 - Home Medications Home Medications: Ambulatory Orders Bupropion HCl [Wellbutrin Xl -] 150 mg PO DAILY 07/28/13 Ranolazine [Ranexa -] 1,000 mg PO BID 07/28/13 Rivaroxaban [Xarelto -] 20 mg PO DAILY 07/28/13 Salmeterol/Fluticasone [Advair 250Mcg/50Mcg -] 1 inh PO DAILY 07/28/13 Sotalol HCl [Sotalol] 80 mg PO BID 07/28/13 Tamsulosin HCl 0.4 mg PO DAILY 07/28/13 Amlodipine Bes/Olmesartan Med [Yamil 5-40 mg Tablet] 1 each PO DAILY 03/15/15 Potassium Chloride [K-Dur] 20 meq PO DAILY 03/15/15 Insulin Lispro Protamin/Lispro [Humalog Mix 50-50 Kwikpen] 15 unit SQ TID Ezetimibe 10 mg PO DAILY 04/29/17 Furosemide [Lasix -] 40 mg PO DAILY 04/29/17 Omeprazole 40 mg PO DAILY 04/29/17 Valacyclovir HCl [Valtrex -] 500 mg PO ASDIR 04/29/17 Atorvastatin Ca [Lipitor] 40 mg PO HS #30 tablet 04/30/17 Tiotropium [place] [Spiriva] 1 inh PO DAILY 02/16/18 Oxycodone HCl 5 mg PO BID PRN #14 tablet MDD 2 02/19/18 Family Disease History - Family Disease History Family Disease History: CA: Father (gastric cancer) Review of Systems - Review of Systems Constitutional: reports: No Symptoms Eyes: reports: No Symptoms HENT: reports: No Symptoms Neck: reports: Pain on Movement Cardiovascular: reports: Chest Pain, Palpitations, Shortness of Breath Respiratory: reports: No Symptoms Gastrointestinal: reports: No Symptoms Genitourinary: reports: No Symptoms Breasts: reports: No Symptoms Reported Musculoskeletal: reports: Back Pain Integumentary: reports: No Symptoms Neurological: reports: Syncope Endocrine: reports: No Symptoms Hematology/Lymphatic: reports: No Symptoms Psychiatric: reports: No Symptoms Physical Examination Vital Signs: Vital Signs Temperature 98.4 F 02/16/18 00:02 Pulse Rate 63 02/16/18 02:47 Respiratory Rate 22 02/16/18 02:47 Blood Pressure 141/76 02/16/18 02:47 O2 Sat by Pulse Oximetry (%) 99 02/16/18 02:47 Constitutional: Yes: Well Nourished, No Distress, Calm Eyes: Yes: Conjunctiva Clear, EOM Intact, PERRL HENT: Yes: WNL, Atraumatic, Normocephalic Neck: Yes: WNL, Supple, Trachea Midline Cardiovascular: Yes: WNL, Regular Rate and Rhythm, S1, S2 Respiratory: Yes: WNL, Regular, CTA Bilaterally Gastrointestinal: Yes: WNL, Normal Bowel Sounds, Soft Renal/: Yes: WNL Breast(s): Yes: WNL Musculoskeletal: Yes: Back Pain Extremities: Yes: WNL Edema: No Peripheral Pulses WNL: Yes Wound/Incision: Yes: Other (superficial abrasions to cheek, upper and lower lip ecchymotic bruising) Neurological: Yes: WNL, Alert, Oriented, Cran Nerves II-XII Intact ...Motor Strength: WNL Psychiatric: Yes: WNL, Alert, Oriented Labs: CBC, BMP 02/16/18 00:20 02/16/18 00:20 Laboratory Results - last 24 hr 02/15/18 02/16/18 02/16/18 22:01 00:20 00:20 WBC 8.8 RBC 4.38 Hgb 13.7 Hct 40.1 MCV 91.6 MCH 31.3 MCHC 34.2 RDW 12.6 Plt Count 178 MPV 9.1 Absolute Neuts (auto) 6.0 Neutrophils % 68.8 Lymphocytes % 19.9 Monocytes % 7.4 Eosinophils % 3.0 Basophils % 0.9 Nucleated RBC % 0 PT with INR 13.40 H INR 1.19 H PTT (Actin FS) 32.9 Sodium Potassium Chloride Carbon Dioxide Anion Gap BUN Creatinine Creat Clearance w eGFR POC Glucometer [phone] Random Glucose Calcium Total Bilirubin AST ALT Alkaline Phosphatase Troponin I B-Natriuretic Peptide Total Protein Albumin TSH Alcohol, Quantitative 02/16/18 02/16/18 02/16/18 00:20 00:20 00:20 WBC RBC Hgb Hct MCV MCH MCHC RDW Plt Count MPV Absolute Neuts (auto) Neutrophils % Lymphocytes % Monocytes % Eosinophils % Basophils % Nucleated RBC % PT with INR INR PTT (Actin FS) Sodium 140 Potassium 4.2 Chloride 106 Carbon Dioxide 29 Anion Gap 5 L BUN 17 Creatinine 0.9 Creat Clearance w eGFR > 60 POC Glucometer Random Glucose 292 H Calcium 8.5 Total Bilirubin 0.3 AST 26 ALT 35 Alkaline Phosphatase 110 Troponin I < 0.02 B-Natriuretic Peptide 68.65 Total Protein 6.5 Albumin 3.2 L TSH 1.52 D Alcohol, Quantitative < 5.0 Current Medications Generic Name Dose Route Start Last Admin Trade Name Freq PRN Reason Stop Dose Admin Atorvastatin Calcium 40 mg 02/16/18 22:00 Lipitor - PO HS DOUGLAS Ezetimibe 10 mg 02/16/18 10:00 Zetia - PO DAILY DOUGLAS Furosemide 40 mg 02/16/18 10:00 Lasix - PO DAILY DOUGLAS Insulin Aspart 1 vial 02/16/18 07:00 Novolog Vial Sliding Scale - SQ ACHS DOUGLAS Protocol Non-Formulary Medication 1 inh 02/16/18 10:00 Salmeterol/Fluticasone [Advair 250mcg/50mcg -] PO DAILY [facility] Non-Formulary Medication 1 each 02/16/18 10:00 Amlodipine Bes/Olmesartan Med [Yamil 5-40 Mg Tablet] PO DAILY DOUGLAS Pantoprazole Sodium 40 mg 02/16/18 10:00 Protonix - PO DAILY DOUGLAS Potassium Chloride 20 meq 02/16/18 10:00 K-Dur - PO DAILY DOUGLAS Ranolazine 1,000 mg 02/16/18 10:00 Ranexa - PO BID DOUGLAS Rivaroxaban 20 mg 02/16/18 10:00 Xarelto - PO DAILY DOUGLAS Sotalol HCl 80 mg 02/16/18 10:00 Betapace - PO BID DOUGLAS Tamsulosin HCl 0.4 mg 02/16/18 08:30 Flomax - PO DAILY@0830 [facility] Tiotropium Pepin 2 puff 02/16/18 10:00 Spiriva Respimat IH DAILY [facility] Intake & Output 02/13/18 02/14/18 02/15/18 02/16/18 23:59 23:59 23:59 23:59 Weight 127.006 kg Imaging - Results Chest X-ray: Image Reviewed Cat Scan: Image Reviewed EKG: Image Reviewed Problem List - Problems (1) Syncope Assessment/Plan: - Likely secondary to Arrhythmia - Cardiac monitoring - Serial Enzymes - Echo in am - Carotid Doppler r/o stenosis - Appreciate Cardiology and Neurology consults - Lipid panel, HgbA1C in am - Monitor CBC, BMP - Fall Precautions - Continue home meds Code(s): R55 - SYNCOPE AND COLLAPSE Qualifiers: Syncope type: unspecified Qualified Code(s): R55 - Syncope and collapse (2) CHF (congestive heart failure) Assessment/Plan: -controlled - Continue home meds - Cardiac monitoring - Strict INOs - Daily weights - Appreciate Cardiology consult - BNP- nl Code(s): I50.9 - HEART FAILURE, UNSPECIFIED Qualifiers: Heart failure type: unspecified Heart failure chronicity: unspecified Qualified Code(s): I50.9 - Heart failure, unspecified (3) Atrial fibrillation Assessment/Plan: - controlled - Continue home meds - EKG reviewed Code(s): I48.91 - UNSPECIFIED ATRIAL FIBRILLATION Qualifiers: Atrial fibrillation type: paroxysmal Qualified Code(s): I48.0 - Paroxysmal atrial fibrillation (4) Diabetes mellitus, insulin dependent (IDDM), uncontrolled Assessment/Plan: - not well controlled - BGMs - ISS - Appreciate Endocrinology consult - HGbA1c in am - Monitor renal function Code(s): E10.65 - TYPE 1 DIABETES MELLITUS WITH HYPERGLYCEMIA (5) HTN (hypertension) Assessment/Plan: - stable - Monitor BP - Continue home meds Code(s): I10 - ESSENTIAL (PRIMARY) HYPERTENSION Qualifiers: Hypertension type: essential hypertension Qualified Code(s): I10 - Essential (primary) hypertension (6) Hypercholesterolemia Assessment/Plan: - Stable - Continue home med - Monitor LFTs Code(s): E78.0 - PURE HYPERCHOLESTEROLEMIA * DO NOT USE * Assessment/Plan This is a 62 y/o man placed in Tele Observation for Syncope for further evaluation of their emergent condition. Visit type - Emergency Visit Emergency Visit: Yes ED Registration Date: 02/15/18 Care time: The patient presented to the Emergency Department on the above date and was hospitalized for further evaluation of their emergent condition. - New Patient This patient is new to me today: Yes Date on this admission: 02/16/18 - Critical Care Critical Care patient: No Hospitalist Screening - Colonoscopy Questionnaire Colonoscopy Questionnaire: Colonoscopy Questionnaire - Patient: 50 - 75 years old and never had a screening colonoscopy: Unknown History of colon or rectal polyps, or CA: Unknown History of IBD, Crohn's disease or UC: Unknown History of abdominal radiation therapy as a child: Unknown - Relative: 1 with colon or rectal CA, or polyps at age 60 or younger: Unknown Colon or rectal CA diagnosed at age 45 or younger: Unknown Multiple relatives with colon or rectal CA: Unknown - Outcome: Screening Result: Negative Screen
[2018-02-16] MEDS: INSULIN SLIDING SCALE (NOVOLOG) 1 VIAL SQ SCH ×4 (06:39→22:19)
[2018-02-16] MEDS ORDERED: traMADol HCL 50 MG TABLET PO ONE (07:37)
[2018-02-16 07:49] LABS: CHOLESTEROL 105 mg/dL (50-200); MAGNESIUM 2.2 mg/dL (1.8-2.4)
[2018-02-16 07:54] LABS: HDL CHOLESTEROL 23 mg/dL (40-60); PHOSPHOROUS 2.8 mg/dL (2.5-4.9); TRIGLYCERIDES 132 mg/dL (0-150)
[2018-02-16] MEDS: RANOLAZINE E.R. 1,000 MG TABLET (FP) PO SCH ×2 (09:17→22:16)
[2018-02-16] MEDS: POTASSIUM CHLORIDE TABS 20 MEQ TABLET.ER (FP) PO SCH (09:17)
[2018-02-16] MEDS: VALSARTAN 160 MG TABLET (UD) PO SCH (09:17)
[2018-02-16] MEDS: SOTALOL HCL 80 MG TABLET (FP) PO SCH ×2 (09:17→22:16)
[2018-02-16] MEDS: amLODIPine BESYLATE 5 MG TABLET (FP) PO SCH (09:17)
[2018-02-16] MEDS: PANTOPRAZOLE 40 MG TABLET (FP) PO SCH (09:17)
[2018-02-16] MEDS: TAMSULOSIN HCL 0.4 MG CAP.ER.24H (FP) PO SCH (09:17)
[2018-02-16] MEDS: FUROSEMIDE 40 MG TABLET (FP) PO SCH (09:18)
[2018-02-16] MEDS ORDERED: [UNRECOGNIZED DRUG - OTHER] PO SCH (10:00)
[2018-02-16] MEDS ORDERED: OLMESARTAN MED PO SCH (10:00)
[2018-02-16] MEDS ORDERED: AMLODIPINE BES PO SCH (10:00)
[2018-02-16] MEDS: BUDESONIDE/FORMETEROL FUMARATE 80/4.5 mcg INHALER IH SCH ×2 (10:18→22:16)
--- NOTE | 2018-02-16 10:33 | CON.CARD ---
Consult Consult Specialty:: Cardiology Referred by:: Dr. Raza Reason for Consultation:: Cardiac evaluation for syncope - History of Present Illness Chief Complaint: Post syncopal episode History of Present Illness: Patient is a 62 year old male well known to me with underlying history of PAF on NOAC (Xarelto), non-obstructive CAD, COPD, LIAN on CPAP, DM (type 2), HTN, hypercholesterolemia and history of pancreatitis who presents after a syncopal episode. He was walking down the stair with his friends when suddenly he fell forward onto his left side of his face. He does not remember the event except for becoming lightheaded. He has been unsteady on his feet . He remembers being helped into the car by his friends and he was brought in the ED. He also complained of some palpitations and SOB when he presented to the ED. Currently also complains of chest discomfort which he usually has. Denies fever or chills. Denies paroxysmal nocturnal dyspnea or orthopnea. Denies headache or any vision changes. He was told hypothyroidism by Dr. Garza but has not been started on any replacement therapy. He has had cardiac work up in the office ( records to be carefully reviewed) - History Source History Provided By: Patient, Medical Record Limitations to Obtaining History: No Limitations - Past Medical History Cardio/Vascular: Yes: AFIB, CAD (Non-obstructive), HTN, Hyperlipdemia Pulmonary: Yes: COPD, Sleep Apnea Gastrointestinal: Yes: GERD Endocrine: Yes: Diabetes Mellitus - Past Surgical History Past Surgical History: Yes: Tonsillectomy - Alcohol/Substance Use Hx Alcohol Use: No - Smoking History Smoking history: Current every day smoker Have you smoked in the past 12 months: Yes Aproximately how many cigarettes per day: 10 If you are a former smoker, when did you quit?: On Chantix Home Medications - Allergies Allergies/Adverse Reactions: Allergies Allergy/AdvReac Type Severity Reaction Status Date / Time No Known Allergies Allergy Verified 02/15/18 21:54 - Home Medications Home Medications: Ambulatory Orders Bupropion HCl [Wellbutrin Xl -] 150 mg PO DAILY 07/28/13 Ranolazine [Ranexa -] 1,000 mg PO BID 07/28/13 Rivaroxaban [Xarelto -] 20 mg PO DAILY 07/28/13 Salmeterol/Fluticasone [Advair 250Mcg/50Mcg -] 1 inh PO DAILY 07/28/13 Sotalol HCl [Sotalol] 80 mg PO BID 07/28/13 Tamsulosin HCl 0.4 mg PO DAILY 07/28/13 Amlodipine Bes/Olmesartan Med [Yamil 5-40 mg Tablet] 1 each PO DAILY 03/15/15 Potassium Chloride [K-Dur] 20 meq PO DAILY 03/15/15 Insulin Lispro Protamin/Lispro [Humalog Mix 50-50 Kwikpen] 15 unit SQ TID Ezetimibe 10 mg PO DAILY 04/29/17 Furosemide [Lasix -] 40 mg PO DAILY 04/29/17 Omeprazole 40 mg PO DAILY 04/29/17 Valacyclovir HCl [Valtrex -] 500 mg PO ASDIR 04/29/17 Atorvastatin Ca [Lipitor] 40 mg PO HS #30 tablet 04/30/17 Tiotropium [place] [Spiriva] 1 inh PO DAILY 02/16/18 Family Disease History - Family Disease History Family Disease History: CA: Father (gastric cancer) Review of Systems - Review of Systems Constitutional: denies: Chills, Fever Cardiovascular: reports: Chest Pain, Palpitations, Shortness of Breath Respiratory: denies: Cough, Hemoptysis, Orthopnea, PND, SOB, SOB on Exertion Gastrointestinal: denies: Abdominal Pain, Constipation, Diarrhea, Melena, Nausea , Rectal Bleeding, Vomiting Genitourinary: denies: Dysuria, Hematuria Musculoskeletal: reports: Joint Pain Neurological: reports: Dizziness, Syncope, Unsteady Gait. denies: Headache, Numbness, Parasthesia, Seizure, Weakness Vital Signs: Vital Signs Temperature 98.5 F 02/16/18 09:45 Pulse Rate 76 02/16/18 09:45 Respiratory Rate 18 02/16/18 09:45 Blood Pressure 150/76 02/16/18 09:45 O2 Sat by Pulse Oximetry (%) 98 02/16/18 05:52 HENT: Yes: Atraumatic Neck: Yes: Supple Respiratory: Yes: CTA Bilaterally Gastrointestinal: Yes: Normal Bowel Sounds, Soft. No: Tenderness Cardiovascular: Yes: Regular Rate and Rhythm JVD: No Carotid Bruit: No PMI: Non-Displaced Heart Sounds: Yes: S1, S2. No: Gallop Edema: No - Other Data Labs, Other Data: CBC, BMP 02/16/18 00:20 02/16/18 00:20 INR, PTT INR 1.19 (0.83-1.09) H 02/16/18 00:20 Troponin, BNP 02/16/18 02/16/18 00:20 07:00 Troponin I < 0.02 < 0.02 B-Natriuretic Peptide 68.65 Laboratory Results - last 24 hr 02/15/18 02/16/18 02/16/18 22:01 00:20 00:20 WBC 8.8 RBC 4.38 Hgb 13.7 Hct 40.1 MCV 91.6 MCH 31.3 MCHC 34.2 RDW 12.6 Plt Count 178 MPV 9.1 Absolute Neuts (auto) 6.0 Neutrophils % 68.8 Lymphocytes % 19.9 Monocytes % 7.4 Eosinophils % 3.0 Basophils % 0.9 Nucleated RBC % 0 PT with INR 13.40 H INR 1.19 H PTT (Actin FS) 32.9 Sodium Potassium Chloride Carbon Dioxide Anion Gap BUN Creatinine Creat Clearance w eGFR POC Glucometer [phone] Random Glucose Hemoglobin A1c % Calcium Phosphorus Magnesium Total Bilirubin AST ALT Alkaline Phosphatase Troponin I B-Natriuretic Peptide Total Protein Albumin Triglycerides Cholesterol Total LDL Cholesterol HDL Cholesterol TSH Alcohol, Quantitative 02/16/18 02/16/18 02/16/18 00:20 00:20 00:20 WBC RBC Hgb Hct MCV MCH MCHC RDW Plt Count MPV Absolute Neuts (auto) Neutrophils % Lymphocytes % Monocytes % Eosinophils % Basophils % Nucleated RBC % PT with INR INR PTT (Actin FS) Sodium 140 Potassium 4.2 Chloride 106 Carbon Dioxide 29 Anion Gap 5 L BUN 17 Creatinine 0.9 Creat Clearance w eGFR > 60 POC Glucometer Random Glucose 292 H Hemoglobin A1c % Calcium 8.5 Phosphorus Magnesium Total Bilirubin 0.3 AST 26 ALT 35 Alkaline Phosphatase 110 Troponin I < 0.02 B-Natriuretic Peptide 68.65 Total Protein 6.5 Albumin 3.2 L Triglycerides Cholesterol Total LDL Cholesterol HDL Cholesterol TSH 1.52 D Alcohol, Quantitative < 5.0 02/16/18 02/16/18 02/16/18 06:39 07:00 07:00 WBC RBC Hgb Hct MCV MCH MCHC RDW Plt Count MPV Absolute Neuts (auto) Neutrophils % Lymphocytes % Monocytes % Eosinophils % Basophils % Nucleated RBC % PT with INR INR PTT (Actin FS) Sodium Potassium Chloride Carbon Dioxide Anion Gap BUN Creatinine Creat Clearance w eGFR POC Glucometer 232 Random Glucose Hemoglobin A1c % 9.2 H Calcium Phosphorus 2.8 Magnesium 2.2 Total Bilirubin AST ALT Alkaline Phosphatase Troponin I < 0.02 B-Natriuretic Peptide Total Protein Albumin Triglycerides 132 Cholesterol 105 Total LDL Cholesterol 75 HDL Cholesterol 23 L TSH Alcohol, Quantitative Sinus rhythm with nonspecific T abnormality Imaging - Results Chest X-ray: Report Reviewed (Unremarkable) Cat Scan: Report Reviewed (Head CT unremarkable) EKG: Report Reviewed Problem List - Problems (1) Syncope Code(s): R55 - SYNCOPE AND COLLAPSE Qualifiers: Syncope type: unspecified Qualified Code(s): R55 - Syncope and collapse (2) Atrial fibrillation Code(s): I48.91 - UNSPECIFIED ATRIAL FIBRILLATION Qualifiers: Atrial fibrillation type: paroxysmal Qualified Code(s): I48.0 - Paroxysmal atrial fibrillation (3) CAD (coronary artery disease) Code(s): I25.10 - ATHSCL HEART DISEASE OF [place] CORONARY ARTERY W/O ANG PCTRS Qualifiers: Coronary Disease-Associated Artery/Lesion type: [place] artery [place] vs. transplanted heart: [place] heart Associated angina: with stable angina Qualified Code(s): I25.118 - Atherosclerotic heart disease of [place] coronary artery with other forms of angina pectoris (4) Chest pain Code(s): R07.9 - CHEST PAIN, UNSPECIFIED Qualifiers: Chest pain type: other chest pain Qualified Code(s): R07.89 - Other chest pain; R07.8 - Other chest pain (5) Diabetes Code(s): E11.9 - TYPE 2 DIABETES MELLITUS WITHOUT COMPLICATIONS Qualifiers: Diabetes mellitus type: type 2 Diabetes mellitus terminal manager insulin use: without terminal manager use Diabetes mellitus complication status: with hyperglycemia Qualified Code(s): E11.65 - Type 2 diabetes mellitus with hyperglycemia (6) Diastolic dysfunction without heart failure Code(s): I51.9 - HEART DISEASE, UNSPECIFIED (7) HTN (hypertension) Code(s): I10 - ESSENTIAL (PRIMARY) HYPERTENSION Qualifiers: Hypertension type: essential hypertension Qualified Code(s): I10 - Essential (primary) hypertension (8) Hypercholesterolemia Code(s): E78.0 - PURE HYPERCHOLESTEROLEMIA * DO NOT USE * (9) Sleep apnea Code(s): G47.30 - SLEEP APNEA, UNSPECIFIED Qualifiers: Sleep apnea type: obstructive Qualified Code(s): G47.33 - Obstructive sleep apnea (adult) (pediatric) Assessment/Plan 1. Syncope, etiology to be determined 2. PAF on NOAC 3. CAD (non-obstructive), angina 4. HTN 5. Hypercholesterolemia 6. Type 2 DM 7. OSAS on CPAP 8. Diastolic dysfunction without LV failure PLAN: 1. Continue monitor on telemetry - currently does not have QT prolongation 2. Continue Sotalol with caution 3. Xarelto 4. Continue Ranexa and statin 5. Yamil or equivalent 6. Repeat echocardiography. Carotid Doppler 7. Follow TFT 8. Review office records. No need for stress test at this time Further plans are to follow Harsha High MD
--- NOTE | 2018-02-16 11:53 | ECHO ---
Name: LENY MONTGOMERY Exam:Adult Echocardiogram Study Date: 02/16/2018 08:09 AM Age: 62 yrs Reason For Study: SYNCOPE Height: 72 in Weight: 280 lb BSA: 2.5 m2 MMode/2D Measurements & Calculations IVSd: 1.3 cm Ao root diam: 3.4 cm LVIDd: 5.3 cm LA dimension: 3.5 cm LVIDs: 3.8 cm LVPWd: 0.92 cm EDV(Teich): 137.2 ml ESV(Teich): 61.7 ml Doppler Measurements & Calculations MV E max domingo: 105.0 cm/sec Med Peak E' [place]: 6.3 cm/sec MV A max [place]: 94.1 cm/sec Med E/e': 16.6 MV E/A: 1.1 Lat Peak E' [place]: 7.8 cm/sec MV dec time: 0.19 sec Lat E/e': 13.4 PI Vmax: 152.0 cm/sec Procedure A two-dimensional transthoracic echocardiogram with color flow and Doppler was performed. The patient was in normal sinus rhythm during the exam. Left Ventricle The left ventricle is not well visualized. Left ventricular systolic function is grossly normal. Ejec tion Fraction = 50-55%. Septal motion is consistent with conduction abnormality. Right Ventricle The right ventricle is not well visualized. The right ventricular systolic function is grossly normal . Atria The left atrial size is normal. Right atrial size is normal. Mitral Valve The mitral valve leaflets appear normal. There is no evidence of stenosis, fluttering, or prolapse. T here is trace mitral regurgitation. Tricuspid Valve The tricuspid valve is normal. There is trace tricuspid regurgitation. Aortic Valve The aortic valve is normal in structure and function. The aortic valve is trileaflet. No aortic regur gitation is present. Pulmonic Valve The pulmonic valve is not well visualized. The pulmonic valve is not well seen, but is grossly normal . Trace pulmonic valvular regurgitation. Great Vessels The aortic root is normal size. Pericardium/Pleura There is no pericardial effusion. Interpretation Summary Left ventricular systolic function is grossly normal. Septal motion is consistent with conduction abnormality. The right ventricular systolic function is grossly normal. There is trace mitral regurgitation. There is trace tricuspid regurgitation. Trace pulmonic valvular regurgitation. There is no pericardial effusion. MD Marko Haywood 02/16/2018 11:53 AM
[2018-02-16] MEDS ORDERED: PT OWN MED DRAWER 7, Y5N ONE (11:58)
[2018-02-16] MEDS ORDERED: SENNOSIDES/DOCUSATE COMBO (SENNA PLUS) TABLET (UD) PO PRN (12:14)
[2018-02-16] MEDS ORDERED: traMADol HCL 50 MG TABLET PO PRN ×3 (12:14→15:26)
--- NOTE | 2018-02-16 12:26 | PN ---
Progress Note, Physician Chief Complaint: fall Syncope History of Present Illness: NAD Upon questioning pt states he is currently feeling palpitations, SR on tele while talking to him Echo and U/S unremarkable C/o SOB, recent stress test with cardiology? has CAD Pt states he fell because he felt really weak, he didn't feel like her was lightheaded Hx of severe cervical and lumbar spinal canal stenosis, sees Dr Hutchins Also had + BC on 12/22/17 with streptococcus bovis, unsure if it was treated uncontrolled diabetic, compliance questionable. - Current Medication List Current Medications: Active Medications Acetaminophen (Tylenol -) 650 mg PO Q4H PRN PRN Reason: PAIN OR FEVER Amlodipine Besylate (Norvasc -) 5 mg PO DAILY [facility] Last Admin: 02/16/18 09:17 Dose: 5 mg Atorvastatin Calcium (Lipitor -) 40 mg PO HS [facility] Budesonide/Formoterol Fumarate (Symbicort 80/4.5mcg -) 2 puff IH BID [facility] Last Admin: 02/16/18 10:18 Dose: 2 puff Ezetimibe (Zetia -) 10 mg PO DAILY [facility] Furosemide (Lasix -) 40 mg PO DAILY [facility] Last Admin: 02/16/18 09:18 Dose: 40 mg Gabapentin (Neurontin -) 100 mg PO TID [facility] Insulin Aspart (Novolog Vial Sliding Scale -) 1 vial SQ ACHS [facility]; Protocol Last Admin: 02/16/18 06:39 Dose: Not Given Pantoprazole Sodium (Protonix -) 40 mg PO DAILY [facility] Last Admin: 02/16/18 09:17 Dose: 40 mg Potassium Chloride (K-Dur -) 20 meq PO DAILY [facility] Last Admin: 02/16/18 09:17 Dose: 20 meq Ranolazine (Ranexa -) 1,000 mg PO BID [facility] Last Admin: 02/16/18 09:17 Dose: 1,000 mg Rivaroxaban (Xarelto -) 20 mg PO DAILY [facility] Senna/Docusate Sodium (Pericolace -) 2 tablet PO HS PRN PRN Reason: CONSTIPATION Sitagliptin Phosphate (Januvia -) 100 mg PO DAILY@0700 [facility] Sotalol HCl (Betapace -) 80 mg PO BID [facility] Last Admin: 02/16/18 09:17 Dose: 80 mg Tamsulosin HCl (Flomax -) 0.4 mg PO DAILY@0830 [facility] Last Admin: 02/16/18 09:17 Dose: 0.4 mg Tiotropium [place] (Spiriva Respimat) 2 puff IH DAILY [facility] Tramadol HCl (Ultram -) 50 mg PO Q8H PRN PRN Reason: PAIN LEVEL 6-10 Valsartan (Diovan -) 320 mg PO DAILY [facility] Last Admin: 02/16/18 09:17 Dose: 320 mg - Objective Vital Signs: Vital Signs Temperature 98.5 F 02/16/18 09:45 Pulse Rate 76 02/16/18 09:45 Respiratory Rate 18 02/16/18 09:45 Blood Pressure 150/76 02/16/18 09:45 O2 Sat by Pulse Oximetry (%) 98 02/16/18 05:52 Constitutional: Yes: Well Nourished, No Distress, Anxious Cardiovascular: Yes: Regular Rate and Rhythm Respiratory: Yes: Regular Gastrointestinal: Yes: Normal Bowel Sounds, Soft, Abdomen, Obese Musculoskeletal: Yes: Muscle Weakness Extremities: Yes: WNL Edema: No Peripheral Pulses WNL: Yes Neurological: Yes: Alert, Oriented Psychiatric: Yes: Alert, Oriented Labs: CBC, BMP 02/16/18 00:20 02/16/18 00:20 INR, PTT INR 1.19 (0.83-1.09) H 02/16/18 00:20 Problem List - Problems (1) Fall Assessment/Plan: -Physical therapy -Physiatry -cardiac workup unremarkable -Neurology and Neurosurgery consult Code(s): W19.XXXA - UNSPECIFIED FALL, INITIAL ENCOUNTER (2) CAD (coronary artery disease) Assessment/Plan: -BB, Hansel Rueda -Cardiology on board Code(s): I25.10 - ATHSCL HEART DISEASE OF [place] CORONARY ARTERY W/O ANG PCTRS Qualifiers: Coronary Disease-Associated Artery/Lesion type: [place] artery [place] vs. transplanted heart: [place] heart Associated angina: with stable angina Qualified Code(s): I25.118 - Atherosclerotic heart disease of [place] coronary artery with other forms of angina pectoris (3) Diabetes mellitus, insulin dependent (IDDM), uncontrolled Assessment/Plan: -A1c at 9.2 -compliance? -BGM AC HS -start Januvia 100 mg po daily -Insulin sliding scale -Diabetic low sodium diet -Endocrinology consult -RD consult Code(s): E10.65 - TYPE 1 DIABETES MELLITUS WITH HYPERGLYCEMIA (4) Paroxysmal A-fib Assessment/Plan: -Tele -Cardiology -Xarelto Code(s): I48.0 - PAROXYSMAL ATRIAL FIBRILLATION (5) Spinal stenosis Assessment/Plan: -cervical and lumbar -unable to do MRI due to weight -ct C spine ordered by NS -retrieve last MRI records from outpatient -pain management Code(s): M48.00 - SPINAL STENOSIS, SITE UNSPECIFIED Assessment/Plan see problem list
[2018-02-16] MEDS ORDERED: GABAPENTIN 100 MG CAPSULE (FP) PO SCH (14:00)
[2018-02-16] MEDS: RIVAROXABAN 20 MG TABLET PO SCH (14:01)
[2018-02-16] MEDS: EZETIMIBE 10 MG TABLET (FP) PO SCH (14:01)
[2018-02-16] MEDS: TIOTROPIUM BROMIDE 2.5 MCG (SPIRIVA) RESPIMAT INHALER IH SCH (14:02)
--- NOTE | 2018-02-16 16:17 | EKG ---
Test Reason : Blood Pressure : / mmHG Vent. Rate : 071 BPM Atrial Rate : 071 BPM P-R Int : 212 ms QRS Dur : 128 ms QT Int : 434 ms P-R-T Axes : 054 066 021 degrees QTc Int : 471 ms SINUS RHYTHM WITH 1ST DEGREE A-V BLOCK WITH OCCASIONAL PREMATURE VENTRICULAR COMPLEXES NON-SPECIFIC INTRA-VENTRICULAR CONDUCTION BLOCK ABNORMAL ECG WHEN COMPARED WITH ECG OF 15-FEB-2018 22:02, PREMATURE VENTRICULAR COMPLEXES ARE NOW PRESENT Confirmed by Josse Frias ([id number]) on 02/16/2018 4:17:24 PM Referred By: Ryann LUIS Confirmed By:Josse Frias
--- NOTE | 2018-02-16 16:43 | EKG ---
Test Reason : Blood Pressure : / mmHG Vent. Rate : 071 BPM Atrial Rate : 071 BPM P-R Int : 194 ms QRS Dur : 128 ms QT Int : 444 ms P-R-T Axes : 049 073 042 degrees QTc Int : 482 ms NORMAL SINUS RHYTHM NON-SPECIFIC INTRA-VENTRICULAR CONDUCTION BLOCK ABNORMAL ECG WHEN COMPARED WITH ECG OF 29-APR-2017 09:41, PREMATURE VENTRICULAR COMPLEXES ARE NO LONGER PRESENT PREMATURE SUPRAVENTRICULAR COMPLEXES ARE NO LONGER PRESENT Confirmed by Josse Frias ([id number]) on 02/16/2018 4:43:14 PM Referred By: Confirmed By:Josse Frias
[2018-02-16] MEDS: oxyCODONE HCL 5 MG TABLET PO PRN ×2 (16:49→22:23)
--- NOTE | 2018-02-16 17:18 | CONSULT ---
Consult - text type - Consultation Consultation Note: NEUROSURGERY CONSULTATION Fredy Shine is a 62 year old male who is known to me with both Cervical and Lumbar spondylosis for which surgery has been considered. He has multilevel Cervical spondylosis with degenerative kyphosis as well as multilevel Lumbar spondylosis. Due to his medical co-morbidities, he wasn't interested in surgery when offered in the past. The patient was admitted with a complaint of his legs giving out. Due to his medical problems, cardiac evaluation was initiated, although it seems that weakness in his legs is his current primary problem. The patient does not fit geometrically in the MRI unit at [facility] and CT Cervical was obtained to determine whether there is any substantial change such as an acute HNP in the neck which may account for these symptoms. Although he may have progression of his Lumbar pathology, it appeared at prior evaluation that he may benefit from L2-S1 decompression and fusion and this would not be prudent in a patient with untreated Cervical spondylosis with this degree of cord compression. C5 & C6 corpectomies with anabaptist of Lordosis and reconstruction with a PEEK cage and anterior plating may afford him relief and protection which would allow a definitive correction to be planned for his Lumbar spine. I will discuss the range of treatment options with his medical team prior to developing and offering a plan of care to the patient.
[2018-02-16 18:29] VITALS: BMI 36.3
--- NOTE | 2018-02-16 18:47 | CONSULT ---
Consult Consult Specialty:: Dermatology - History Source History Provided By: Patient Limitations to Obtaining History: No Limitations - Past Medical History Cardio/Vascular: Yes: AFIB, CAD (Non-obstructive), HTN, Hyperlipdemia Pulmonary: Yes: COPD, Sleep Apnea Gastrointestinal: Yes: GERD Endocrine: Yes: Diabetes Mellitus - Past Surgical History Past Surgical History: Yes: Tonsillectomy - Alcohol/Substance Use Hx Alcohol Use: No - Smoking History Smoking history: Current every day smoker Have you smoked in the past 12 months: Yes Aproximately how many cigarettes per day: 10 If you are a former smoker, when did you quit?: On [employer] Home Medications - Allergies Allergies/Adverse Reactions: Allergies Allergy/AdvReac Type Severity Reaction Status Date / Time No Known Allergies Allergy Verified 02/15/18 21:54 - Home Medications Home Medications: Ambulatory Orders Bupropion HCl [Wellbutrin Xl -] 150 mg PO DAILY 07/28/13 Ranolazine [Ranexa -] 1,000 mg PO BID 07/28/13 Rivaroxaban [Xarelto -] 20 mg PO DAILY 07/28/13 Salmeterol/Fluticasone [Advair 250Mcg/50Mcg -] 1 inh PO DAILY 07/28/13 Sotalol HCl [Sotalol] 80 mg PO BID 07/28/13 Tamsulosin HCl 0.4 mg PO DAILY 07/28/13 Amlodipine Bes/Olmesartan Med [Yamil 5-40 mg Tablet] 1 each PO DAILY 03/15/15 Potassium Chloride [K-Dur] 20 meq PO DAILY 03/15/15 Insulin Lispro Protamin/Lispro [Humalog Mix 50-50 Kwikpen] 15 unit SQ TID Ezetimibe 10 mg PO DAILY 04/29/17 Furosemide [Lasix -] 40 mg PO DAILY 04/29/17 Omeprazole 40 mg PO DAILY 04/29/17 Valacyclovir HCl [Valtrex -] 500 mg PO ASDIR 04/29/17 Atorvastatin Ca [Lipitor] 40 mg PO HS #30 tablet 04/30/17 Tiotropium [place] [Spiriva] 1 inh PO DAILY 02/16/18 Family Disease History - Family Disease History Family Disease History: [place]: Father (gastric cancer) Physical Exam Vital Signs: Vital Signs Temperature 97.6 F 09/18/18 18:00 Pulse Rate 75 02/16/18 18:00 Respiratory Rate 18 02/16/18 18:00 Blood Pressure 145/75 02/16/18 18:00 O2 Sat by Pulse Oximetry (%) 98 02/16/18 18:25 Labs: CBC, BMP 02/16/18 00:20 02/16/18 00:20 Assessment/Plan Patient reports having had a pruritic rash on both forearms for a month . He also has a irritation on both groin folds. He has along standing discoloration on both lower extremities. On examination of the forearms he has erythematous papules on the forearms consistent with eczema or a contact dermatitis Patient is to apply triamcinolone cream bid until resolved to arms. The groin rash is consistent with tinea cruris. Please apply econozole cream sparingly to area. Eruption on lower extremities is consistent with long standing history of stasis dermatitis with slight pruritis . Apply triamcinolone prn pruritis to lower legs. Patient has had tinea cruris on and off for years due to poorly controlled DM.
[2018-02-16] MEDS: KETOCONAZOLE 2% CREAM - 60GM TUBE TP SCH (20:17)
[2018-02-16] MEDS ORDERED: INSULIN (NOVOLOG) ASPART 100 UNITS/ML 10ML VIAL ONE (21:15)
[2018-02-16] MEDS: ATORVASTATIN CA 40 MG TABLET (FP) PO SCH (22:16)
[2018-02-16] MEDS: GABAPENTIN 300 MG CAPSULE (FP) PO SCH (22:16)
[2018-02-16] MEDS: TRIAMCINOLONE ACET 0.1% CREAM 15 GM TUBE TP SCH (22:17)
[2018-02-17] MEDS: GABAPENTIN 300 MG CAPSULE (FP) PO SCH ×3 (06:01→22:27)
[2018-02-17 06:31] LABS: BASO % 0.7 % (0-2.0); EOS % 2.6 % (0-4.5); HEMATOCRIT 38.9 % (35.4-49); HEMOGLOBIN 13.2 GM/dL (11.7-16.9); LYMPH % 22.5 % (8-40); MCHC 33.9 g/dl (32.0-35.9); MEAN CELL VOLUME 91.4 fl (80-96); MEAN PLT VOLUME 9.1 fl (7.5-11.1); NEUT % 65.2 % (42.8-82.8); PLATELET COUNT 150 K/MM3 (134-434); RBC 4.26 M/mm3 (4.00-5.60); RDW 12.9 % (11.9-15.9); WHITE BLOOD COUNT 9.2 K/mm3 (4.0-10.0)
[2018-02-17] MEDS: INSULIN SLIDING SCALE (NOVOLOG) 1 VIAL SQ SCH ×4 (06:50→22:30)
[2018-02-17] MEDS: INSULIN (NOVOLOG MIX 70/30) 100 UNITS/ML MDV SQ SCH ×2 (06:50→18:00)
[2018-02-17] MEDS: sitaGLIPtin PHOSPHATE 100 MG TABLET (FP) PO SCH (06:52)
[2018-02-17 07:01] LABS: CHLORIDE 109 mmol/L (98-107); POTASSIUM 3.7 mmol/L (3.5-5.1); SODIUM 142 mmol/L (136-145)
[2018-02-17 07:07] LABS: ANION GAP 4 MMOL/L (8-16); BLOOD UREA NITROGEN 14 mg/dL (7-18); CALCIUM 8.4 mg/dL (8.5-10.1); CO2 29 mmol/L (21-32); CREATININE 0.6 mg/dL (0.55-1.3); GLUCOSE,RANDOM 182 mg/dL (74-106)
--- NOTE | 2018-02-17 08:30 | PN ---
Progress Note, Physician - Current Medication List Current Medications: Active Medications Acetaminophen (Tylenol -) 650 mg PO Q4H PRN PRN Reason: PAIN OR FEVER Amlodipine Besylate (Norvasc -) 5 mg PO DAILY [facility] Last Admin: 02/16/18 09:17 Dose: 5 mg Atorvastatin Calcium (Lipitor -) 40 mg PO HS [facility] Last Admin: 02/16/18 22:16 Dose: 40 mg Budesonide/Formoterol Fumarate (Symbicort 80/4.5mcg -) 2 puff IH BID [facility] Last Admin: 02/16/18 22:16 Dose: 2 puff Ezetimibe (Zetia -) 10 mg PO DAILY [facility] Last Admin: 02/16/18 14:01 Dose: 10 mg Furosemide (Lasix -) 40 mg PO DAILY [facility] Last Admin: 02/16/18 09:18 Dose: 40 mg Gabapentin (Neurontin -) 300 mg PO TID [facility] Last Admin: 02/17/18 06:01 Dose: 300 mg Insulin Aspart (Novolog Mix 70/30 Vial) 22 units SQ BIDAC [facility] Last Admin: 02/17/18 06:50 Dose: 22 units Insulin Aspart (Novolog Vial Sliding Scale -) 1 vial SQ ACHS [facility]; Protocol Last Admin: 02/17/18 06:50 Dose: 4 units Ketoconazole (Nizoral 2% Cream -) 1 applic TP DAILY [facility] Last Admin: 02/16/18 20:17 Dose: 1 applic Oxycodone HCl (Roxicodone -) 5 mg PO Q6H PRN PRN Reason: PAIN LEVEL 7 - 10 Last Admin: 02/16/18 22:23 Dose: 5 mg Pantoprazole Sodium (Protonix -) 40 mg PO DAILY [facility] Last Admin: 02/16/18 09:17 Dose: 40 mg Potassium Chloride (K-Dur -) 20 meq PO DAILY [facility] Last Admin: 02/16/18 09:17 Dose: 20 meq Ranolazine (Ranexa -) 1,000 mg PO BID [facility] Last Admin: 02/16/18 22:16 Dose: 1,000 mg Rivaroxaban (Xarelto -) 20 mg PO DAILY [facility] Last Admin: 02/16/18 14:01 Dose: 20 mg Senna/Docusate Sodium (Pericolace -) 2 tablet PO HS PRN PRN Reason: CONSTIPATION Sitagliptin Phosphate (Januvia -) 100 mg PO DAILY@0700 [facility] Last Admin: 02/17/18 06:52 Dose: Not Given Sotalol HCl (Betapace -) 80 mg PO BID [facility] Last Admin: 02/16/18 22:16 Dose: 80 mg Tamsulosin HCl (Flomax -) 0.4 mg PO DAILY@0830 [facility] Last Admin: 02/16/18 09:17 Dose: 0.4 mg Tiotropium [place] (Spiriva Respimat) 2 puff IH DAILY [facility] Last Admin: 02/16/18 14:02 Dose: 2 puff Tramadol HCl (Ultram -) 100 mg PO Q8H PRN PRN Reason: PAIN LEVEL 4 - 6 Last Admin: 02/17/18 06:01 Dose: 100 mg Triamcinolone Acetonide (Aristocort 0.1% Cream -) 1 applic TP BID [facility] Last Admin: 02/16/18 22:17 Dose: 1 applic Valsartan (Diovan -) 320 mg PO DAILY [facility] Last Admin: 02/16/18 09:17 Dose: 320 mg - Objective Vital Signs: Vital Signs Temperature 97.4 F L 02/17/18 06:00 Pulse Rate 68 02/17/18 06:00 Respiratory Rate 20 02/17/18 06:00 Blood Pressure 142/72 02/17/18 06:00 O2 Sat by Pulse Oximetry (%) 98 02/17/18 05:00 Cardiovascular: Yes: S1, S2 Respiratory: Yes: Regular, CTA Bilaterally Gastrointestinal: Yes: Normal Bowel Sounds, Soft. No: Tenderness Neurological: Yes: Alert, Oriented, Pre-Existing Deficit Labs: CBC, BMP 02/17/18 06:00 02/17/18 06:00 INR, PTT INR 1.19 (0.83-1.09) H 02/16/18 00:20 Assessment/Plan - Problems (1) Fall Assessment/Plan: -Physical therapy -Physiatry -cardiac workup unremarkable -Neurology and Neurosurgery consult noted and appreciated -await ct scan Code(s): W19.XXXA - UNSPECIFIED FALL, INITIAL ENCOUNTER (2) CAD (coronary artery disease) Assessment/Plan: -BB, Xarelto, Zetia -Cardiology on board Code(s): I25.10 - ATHSCL HEART DISEASE OF [place] CORONARY ARTERY W/O ANG PCTRS Qualifiers: Coronary Disease-Associated Artery/Lesion type: [place] artery [place] vs. transplanted heart: [place] heart Associated angina: with stable angina Qualified Code(s): I25.118 - Atherosclerotic heart disease of [place] coronary artery with other forms of angina pectoris (3) Diabetes mellitus, insulin dependent (IDDM), uncontrolled Assessment/Plan: -A1c at 9.2 -compliance? -BGM AC HS -start Januvia 100 mg po daily -Insulin sliding scale -Diabetic low sodium diet -Endocrinology consult -RD consult Code(s): E10.65 - TYPE 1 DIABETES MELLITUS WITH HYPERGLYCEMIA (4) Paroxysmal A-fib Assessment/Plan: -Tele--EKG -Cardiology -Xarelto Code(s): I48.0 - PAROXYSMAL ATRIAL FIBRILLATION (5) Spinal stenosis Assessment/Plan: -cervical and lumbar -unable to do MRI due to weight -ct C spine ordered by NS -retrieve last MRI records from outpatient -pain management Code(s): M48.00 - SPINAL STENOSIS, SITE UNSPECIFIED
--- NOTE | 2018-02-17 09:04 | CONSULT ---
Consult - text type - Consultation Consultation Note: Neurology History of Present Illness 62 YOM with h/o A-fib on Xarelto, PVCs, CAD, CHF, COPD, DM, HTN, HLD, sleep apnea, and pancreatitis p/w apparent syncopal episode while he was walking outside, falling onto his left face. He cannot recall the exact events leading up to the fall and just remembers becoming lightheaded/unsteady on his feet and then awakening on the ground. He felt normal for a short time afterward but just [employer] to the ED became SOB and had palpitations and chest discomfort like his normal runs of PVCs. He additionally notes unchanged chronic low back and neck pain, but otherwise denies any new symptoms (no f/c/n/v/d, abdominal pain, focal weakness, headache, vision changes, etc). CT head completed and did not show any acute changes. Also completed Carotid doppler which showed mild atherosclerotic disease but no HD significant stenosis. Echo also reviewed and discussed and normal LV and RV function. Mention of LE weakness but patient is raising to gravity, possibly slight RLE drift but otherwise intact. CT C spine completed, seen by NSGY who is considering operative mgmt, in discussion with patient who knows Dr. Waggoner from prior. Past History - Past Medical History Allergies/Adverse Reactions: Allergies Allergy/AdvReac Type Severity Reaction Status Date / Time No Known Allergies Allergy Verified 02/15/18 21:54 Home Medications: Ambulatory Orders Bupropion HCl [Wellbutrin Xl -] 150 mg PO DAILY 07/28/13 Ranolazine [Ranexa -] 1,000 mg PO BID 07/28/13 Rivaroxaban [Xarelto -] 20 mg PO DAILY 07/28/13 Salmeterol/Fluticasone [Advair 250Mcg/50Mcg -] 1 inh PO DAILY 07/28/13 Sotalol HCl [Sotalol] 80 mg PO BID 07/28/13 Tamsulosin HCl 0.4 mg PO DAILY 07/28/13 Amlodipine Bes/Olmesartan Med [Yamil 5-40 mg Tablet] 1 each PO DAILY 03/15/15 Potassium Chloride [K-Dur] 20 meq PO DAILY 03/15/15 Insulin Lispro Protamin/Lispro [Humalog Mix 50-50 Kwikpen] 15 unit SQ TID Ezetimibe 10 mg PO DAILY 04/29/17 Furosemide [Lasix -] 40 mg PO DAILY 04/29/17 Omeprazole 40 mg PO DAILY 04/29/17 Valacyclovir HCl [Valtrex -] 500 mg PO ASDIR 04/29/17 Atorvastatin Ca [Lipitor] 40 mg PO HS #30 tablet 04/30/17 Tiotropium [place] [Spiriva] 1 inh PO DAILY 02/16/18 Anemia: No Asthma: No Cancer: No Cardiac Disorders: Yes (A-Fib, PVC) CVA: No COPD: Yes CHF: No Dementia: No Diabetes: Yes GI Disorders: Yes (gasritis) Disorders: No HTN: Yes Hypercholesterolemia: Yes Liver Disease: No Seizures: No Thyroid Disease: Yes (hypothyroid) Other medical history: sleep apnea, - Surgical History Abdominal Surgery: No Appendectomy: No Cardiac Surgery: Yes (Angio-plasty) Cholecystectomy: No Lung Surgery: No Neurologic Surgery: No Orthopedic Surgery: Yes (both feet bone removal) - Immunization History Immunization Up to Date: Yes - Suicide/Smoking/Psychosocial Hx Smoking Status: No Smoking History: Current every day smoker Have you smoked in the past 12 months: Yes Number of Cigarettes Smoked Daily: 10 If you are a former smoker, when did you quit?: On [employer] Information on smoking cessation initiated: No 'Breaking Loose' booklet given: 04/28/17 Hx Alcohol Use: No Drug/Substance Use Hx: No Substance Use Type: None Hx Substance Use Treatment: No Review of Systems - Review of Systems Constitutional: reports: No Symptoms Eyes: reports: No Symptoms HENT: reports: No Symptoms Neck: reports: No Symptoms Cardiovascular: reports: No Symptoms Respiratory: reports: No Symptoms Gastrointestinal: reports: No Symptoms Genitourinary: reports: No Symptoms Breasts: reports: No Symptoms Reported Musculoskeletal: reports: No Symptoms Integumentary: reports: No Symptoms Neurological: reports: Syncope Endocrine: reports: No Symptoms Hematology/Lymphatic: reports: No Symptoms Psychiatric: reports: No Symptoms *Physical Exam Vital Signs Temperature 97.4 F L 02/17/18 06:00 Pulse Rate 68 02/17/18 06:00 Respiratory Rate 20 02/17/18 06:00 Blood Pressure 142/72 02/17/18 06:00 O2 Sat by Pulse Oximetry (%) 98 02/17/18 05:00 Gen: Awake, alert, responds to questions Card: irregular, nml S1,S2 Resp: Normal symmetric effort, lungs clear to auscultation Abdomen: Soft, nontender, bowel sounds active Musculoskeletal: Adequate range of motion without significant deformity Head atraumatic and normocephalic CN: PERRL, EOMI intact, no apparent facial droop, no abnormalities in facial sensation, palate elevates, uvula and tongue midline Motor: ?RLE drift Sensory: Decreased PP in distal LE Coordination: Intact on [id number] testing Gait: Deferred CBCD WBC 9.2 K/mm3 (4.0-10.0) 02/17/18 06:00 RBC 4.26 M/mm3 (4.00-5.60) 02/17/18 06:00 Hgb 13.2 GM/dL (11.7-16.9) 02/17/18 06:00 Hct 38.9 % (35.4-49) 02/17/18 06:00 MCV 91.4 fl (80-96) 02/17/18 06:00 MCHC 33.9 g/dl (32.0-35.9) 02/17/18 06:00 RDW 12.9 % (11.9-15.9) 02/17/18 06:00 Plt Count 150 K/MM3 (134-434) 02/17/18 06:00 MPV 9.1 fl (7.5-11.1) 02/17/18 06:00 CMP Sodium 142 mmol/L (136-145) 02/17/18 06:00 Potassium 3.7 mmol/L (3.5-5.1) 02/17/18 06:00 Chloride 109 mmol/L (98-107) H 02/17/18 06:00 Carbon Dioxide 29 mmol/L (21-32) 02/17/18 06:00 Anion Gap 4 MMOL/L (8-16) L 02/17/18 06:00 BUN 14 mg/dL (7-18) 02/17/18 06:00 Creatinine 0.6 mg/dL (0.55-1.3) 02/17/18 06:00 Creat Clearance w eGFR > 60 (>60) 02/17/18 06:00 Random Glucose 182 mg/dL (74-106) H 02/17/18 06:00 Calcium 8.4 mg/dL (8.5-10.1) L 02/17/18 06:00 Total Bilirubin 0.3 mg/dL (0.2-1) 02/16/18 00:20 AST 26 U/L (15-37) 02/16/18 00:20 ALT 35 U/L (13-61) 02/16/18 00:20 Alkaline Phosphatase 110 U/L (45-117) 02/16/18 00:20 Total Protein 6.5 g/dl (6.4-8.2) 02/16/18 00:20 Albumin 3.2 g/dl (3.4-5.0) L 02/16/18 00:20 CARDIAC ENZYMES Troponin I < 0.02 ng/ml (0.00-0.05) 02/16/18 07:00 Imaging as above Plan: 62 YOM with h/o A-fib on Xarelto, PVCs, CAD, CHF, COPD, DM, HTN, HLD, sleep apnea, and pancreatitis p/w apparent syncopal episode while he was walking outside, falling onto his left face. He cannot recall the exact events leading up to the fall and just remembers becoming lightheaded/unsteady on his feet and then awakening on the ground. He felt normal for a short time afterward but just [employer] to the ED became SOB and had palpitations and chest discomfort like his normal runs of PVCs. He additionally notes unchanged chronic low back and neck pain, but otherwise denies any new symptoms (no f/c/n/v/d, abdominal pain, focal weakness, headache, vision changes, etc). CT head completed and did not show any acute changes. Also completed Carotid doppler which showed mild atherosclerotic disease but no HD significant stenosis. Echo also reviewed and discussed and normal LV and RV function. Mention of LE weakness but patient is raising to gravity, possibly slight RLE drift but otherwise intact. CT C spine completed, seen by NSGY who is considering operative mgmt, in discussion with patient who knows Dr. Waggoner from prior. Recommend physical therapy, ambulation as tolerated. Defer to NSGY regarding operative mgmt. Continue cardiac workup, hydration, monitor Afib, telelmetry, fall precautions.
[2018-02-17] MEDS ORDERED: PT OWN MED DRAWER 7, Y5N ONE ×4 (09:31→22:44)
[2018-02-17] MEDS: TRIAMCINOLONE ACET 0.1% CREAM 15 GM TUBE TP SCH ×2 (09:39→22:27)
[2018-02-17] MEDS: PANTOPRAZOLE 40 MG TABLET (FP) PO SCH (09:39)
[2018-02-17] MEDS: FUROSEMIDE 40 MG TABLET (FP) PO SCH (09:39)
[2018-02-17] MEDS: RANOLAZINE E.R. 1,000 MG TABLET (FP) PO SCH ×2 (09:39→22:29)
[2018-02-17] MEDS: RIVAROXABAN 20 MG TABLET PO SCH (09:39)
[2018-02-17] MEDS: POTASSIUM CHLORIDE TABS 20 MEQ TABLET.ER (FP) PO SCH (09:39)
[2018-02-17] MEDS: amLODIPine BESYLATE 5 MG TABLET (FP) PO SCH (09:39)
[2018-02-17] MEDS: SOTALOL HCL 80 MG TABLET (FP) PO SCH ×2 (09:39→22:27)
[2018-02-17] MEDS: TAMSULOSIN HCL 0.4 MG CAP.ER.24H (FP) PO SCH (09:39)
[2018-02-17] MEDS: VALSARTAN 160 MG TABLET (UD) PO SCH (09:39)
[2018-02-17] MEDS: KETOCONAZOLE 2% CREAM - 60GM TUBE TP SCH (09:39)
[2018-02-17] MEDS: TIOTROPIUM BROMIDE 2.5 MCG (SPIRIVA) RESPIMAT INHALER IH SCH (09:40)
[2018-02-17] MEDS: BUDESONIDE/FORMETEROL FUMARATE 80/4.5 mcg INHALER IH SCH ×2 (09:40→22:30)
--- NOTE | 2018-02-17 10:41 | PN ---
Progress Note (short form) - Note Progress Note: ID consult dictated imp/reccd asked to see for "blood infection" admitted 02/15 s/p syncope being evaluated by cardiology and neurology history of "blood infection" in November- looking in computer- he had one blood culture drawn 12/22- one bottle with strep bovis reports being given penicillin for this denies fever is not sure why he had culture drawn denies fevers now last colonoscopy many years ago would definitely repeat blood cultures transthoracic echo is unremarkable would check esr/crp would consider colonoscopy given known association between strep bovis and colon cancer call in to Dr Garza his PMD regarding his outpt care- apparently had rash and fever in November- refused admission in November, treated with outpt Augmentin for one month Problem List - Problems (1) Syncope Code(s): R55 - SYNCOPE AND COLLAPSE Qualifiers: Syncope type: unspecified Qualified Code(s): R55 - Syncope and collapse (2) Bacteremia Code(s): R78.81 - BACTEREMIA
[2018-02-17] MEDS: EZETIMIBE 10 MG TABLET (FP) PO SCH (11:00)
[2018-02-17] MEDS ORDERED: INSULIN (NOVOLOG) ASPART 100 UNITS/ML 10ML VIAL ONE ×2 (11:02→22:26)
--- NOTE | 2018-02-17 11:43 | PN ---
Progress Note, Physician History of Present Illness: No further near or true syncope, left rib pain. Hesitant to d/c Lasix due to dependent edema. - Current Medication List Current Medications: Active Medications Acetaminophen (Tylenol -) 650 mg PO Q4H PRN PRN Reason: PAIN OR FEVER Amlodipine Besylate (Norvasc -) 5 mg PO DAILY [facility] Last Admin: 02/17/18 09:39 Dose: 5 mg Atorvastatin Calcium (Lipitor -) 40 mg PO HS [facility] Last Admin: 02/16/18 22:16 Dose: 40 mg Budesonide/Formoterol Fumarate (Symbicort 80/4.5mcg -) 2 puff IH BID [facility] Last Admin: 02/17/18 09:40 Dose: 2 puff Ezetimibe (Zetia -) 10 mg PO DAILY [facility] Last Admin: 02/16/18 14:01 Dose: 10 mg Furosemide (Lasix -) 40 mg PO DAILY [facility] Last Admin: 02/17/18 09:39 Dose: 40 mg Gabapentin (Neurontin -) 300 mg PO TID [facility] Last Admin: 02/17/18 06:01 Dose: 300 mg Insulin Aspart (Novolog Mix 70/30 Vial) 22 units SQ BIDAC [facility] Last Admin: 02/17/18 06:50 Dose: 22 units Insulin Aspart (Novolog Vial Sliding Scale -) 1 vial SQ ACHS [facility]; Protocol Last Admin: 02/17/18 06:50 Dose: 4 units Ketoconazole (Nizoral 2% Cream -) 1 applic TP DAILY [facility] Last Admin: 02/17/18 09:39 Dose: 1 applic Oxycodone HCl (Roxicodone -) 5 mg PO Q6H PRN PRN Reason: PAIN LEVEL 7 - 10 Last Admin: 02/16/18 22:23 Dose: 5 mg Pantoprazole Sodium (Protonix -) 40 mg PO DAILY [facility] Last Admin: 02/17/18 09:39 Dose: 40 mg Potassium Chloride (K-Dur -) 20 meq PO DAILY [facility] Last Admin: 02/17/18 09:39 Dose: 20 meq Ranolazine (Ranexa -) 1,000 mg PO BID [facility] Last Admin: 02/17/18 09:39 Dose: 1,000 mg Rivaroxaban (Xarelto -) 20 mg PO DAILY [facility] Last Admin: 02/17/18 09:39 Dose: 20 mg Senna/Docusate Sodium (Pericolace -) 2 tablet PO HS PRN PRN Reason: CONSTIPATION Sitagliptin Phosphate (Januvia -) 100 mg PO DAILY@0700 [facility] Last Admin: 02/17/18 06:52 Dose: Not Given Sotalol HCl (Betapace -) 80 mg PO BID [facility] Last Admin: 02/17/18 09:39 Dose: 80 mg Tamsulosin HCl (Flomax -) 0.4 mg PO DAILY@0830 [facility] Last Admin: 02/17/18 09:39 Dose: 0.4 mg Tiotropium [place] (Spiriva Respimat) 2 puff IH DAILY [facility] Last Admin: 02/17/18 09:40 Dose: 2 puff Tramadol HCl (Ultram -) 100 mg PO Q8H PRN PRN Reason: PAIN LEVEL 4 - 6 Last Admin: 02/17/18 06:01 Dose: 100 mg Triamcinolone Acetonide (Aristocort 0.1% Cream -) 1 applic TP BID [facility] Last Admin: 02/17/18 09:39 Dose: 1 applic Valsartan (Diovan -) 320 mg PO DAILY [facility] Last Admin: 02/17/18 09:39 Dose: 320 mg - Objective Vital Signs: Vital Signs Temperature 98.1 F 02/17/18 10:00 Pulse Rate 66 02/17/18 10:00 Respiratory Rate 20 02/17/18 10:00 Blood Pressure 144/76 02/17/18 10:00 O2 Sat by Pulse Oximetry (%) 98 02/17/18 05:00 Constitutional: Yes: No Distress, Calm Neck: Yes: Supple Cardiovascular: Yes: Regular Rate and Rhythm Respiratory: Yes: Regular, Diminished Gastrointestinal: Yes: Normal Bowel Sounds, Soft, Abdomen, Obese Edema: Yes Edema: LLE: 1+, RLE: 1+ Labs: CBC, BMP 02/17/18 06:00 02/17/18 06:00 INR, PTT INR 1.19 (0.83-1.09) H 02/16/18 00:20 - ....Imaging EKG: Report Reviewed (SR @ 71 1st deg AVB IVCD with PVC QTc 471 msec Tele: 3 sec pause overnight) Problem List - Problems (1) Left rib fracture Code(s): S22.32XA - FRACTURE OF ONE RIB, LEFT SIDE, INIT FOR CLOS FX Qualifiers: Encounter type: initial encounter Rib fracture type: single rib Fracture type: closed Qualified Code(s): S22.32XA - Fracture of one rib, left side, initial encounter for closed fracture (2) Paroxysmal A-fib Code(s): I48.0 - PAROXYSMAL ATRIAL FIBRILLATION (3) Spinal stenosis Code(s): M48.00 - SPINAL STENOSIS, SITE UNSPECIFIED (4) Syncope Code(s): R55 - SYNCOPE AND COLLAPSE Qualifiers: Syncope type: unspecified Qualified Code(s): R55 - Syncope and collapse (5) CAD (coronary artery disease) Code(s): I25.10 - ATHSCL HEART DISEASE OF [place] CORONARY ARTERY W/O ANG PCTRS Qualifiers: Coronary Disease-Associated Artery/Lesion type: [place] artery [place] vs. transplanted heart: [place] heart Associated angina: with stable angina Qualified Code(s): I25.118 - Atherosclerotic heart disease of [place] coronary artery with other forms of angina pectoris (6) Diabetes Code(s): E11.9 - TYPE 2 DIABETES MELLITUS WITHOUT COMPLICATIONS Qualifiers: Diabetes mellitus type: type 2 Diabetes mellitus fpc insulin use: without intermediate accountant use Diabetes mellitus complication status: with hyperglycemia Qualified Code(s): E11.65 - Type 2 diabetes mellitus with hyperglycemia (7) Diastolic dysfunction without heart failure Code(s): I51.9 - HEART DISEASE, UNSPECIFIED (8) HTN (hypertension) Code(s): I10 - ESSENTIAL (PRIMARY) HYPERTENSION Qualifiers: Hypertension type: essential hypertension Qualified Code(s): I10 - Essential (primary) hypertension (9) Hypercholesterolemia Code(s): E78.0 - PURE HYPERCHOLESTEROLEMIA * DO NOT USE * (10) Sleep apnea Code(s): G47.30 - SLEEP APNEA, UNSPECIFIED Qualifiers: Sleep apnea type: obstructive Qualified Code(s): G47.33 - Obstructive sleep apnea (adult) (pediatric) (11) Swelling of lower extremity Code(s): M79.89 - OTHER SPECIFIED SOFT TISSUE DISORDERS (12) Chronic anticoagulation Code(s): Z79.01 - [place] (CURRENT) USE OF ANTICOAGULANTS Assessment/Plan 02/16/[address]: No PE, chronic lung disease, acute left 7th rib fracture 02/16/2018 Carotid U/S: Mild atherosclerosis without sig stenosis 02/16/2018 Echo: Normal LV and RV size and fxn, tr MR, TR, septal abnl due to conduction delay 1. Syncope with prodromal sxs 2. PAF on NOAC 3. CAD (non-obstructive), angina 4. HTN 5. Hypercholesterolemia 6. Type 2 DM 7. OSAS on CPAP 8. Diastolic dysfunction without LV failure 9. PVC 10. Left rib fracture post fall 11. Cervical and lumbar spondylosis PLAN: 1. Continue monitor on telemetry - currently does not have QT prolongation 2. Continue Sotalol 80 bid, Xarelto 20 qd, Ranexa 1000 bid, Lipitor 40 qd, Zetia 10 qd, Diovan 320 qd. Will d/c Lasix 40 qd and Norvasc 5 qd, wrap legs 3. Review office records. No need for stress test at this time, analgesia and IS as needed
[2018-02-17] MEDS: oxyCODONE HCL 5 MG TABLET PO PRN ×2 (12:16→22:33)
[2018-02-17] MEDS: ACETAMINOPHEN 325 MG TABLET (FP) PO PRN ×2 (12:17→22:34)
--- NOTE | 2018-02-17 12:58 | EKG ---
Test Reason : Blood Pressure : / mmHG Vent. Rate : 060 BPM Atrial Rate : 060 BPM P-R Int : 172 ms QRS Dur : 130 ms QT Int : 444 ms P-R-T Axes : -14 073 026 degrees QTc Int : 444 ms NORMAL SINUS RHYTHM NON-SPECIFIC INTRA-VENTRICULAR CONDUCTION BLOCK ABNORMAL ECG WHEN COMPARED WITH ECG OF 16-FEB-2018 10:07, PREMATURE VENTRICULAR COMPLEXES ARE NO LONGER PRESENT [place] INTERVAL HAS DECREASED Confirmed by HOMAR STRICKLAND, KENNETH ([id number]) on 02/17/2018 12:57:42 PM Referred By: Ryann LUIS Confirmed By:KENNETH GRAF MD
--- NOTE | 2018-02-17 13:35 | PN ---
Progress Note (short form) - Note Progress Note: Patient with mild improvement in leg symptoms and is currently starting EMG. Discussed case with Dr. Garza who agrees that patient is too infirm for acute spinal intervention. We discussed his overall medical condition and the need to get better control of his acute medical issues before proceeding with any spine intervention, however, once optimized, he may derive benefit from a focal plan of care. Given the need to minimize morbidities, focal decompression of his 2 large Lumbar HNP may be considered as well as Epidural Steroid injections, however, there is no indication for Acute Neurosurgical intervention at this time. The patient understands that his plan of care must reflect all of his active medical concerns.
--- NOTE | 2018-02-17 14:07 | CONSULT ---
Consult Consult Specialty:: PM&R Reason for Consultation:: EMG BLE - History of Present Illness Chief Complaint: chronic neck/ back pain down BLE History of Present Illness: This is a 62 year old man with a medical history of A fib, PVCs, CAD, CHF, HTN, HLD, COPD, sleep apnea, pancreatitis, DM, chronic neck/ back pain 2/2 multilevel DDD/ HNP, who presented to the ED 02/15/18 following a fall. 02/16/18 CT head showed no acute pathology; CXR showed wide mediastinum with congestive changes; carotid US showed mild atherosclerotic disease without hemodynamically significant stenosis; and echo showed EF 50-55% with trace TR/ MR. He was seen by multiple consultants including Neurosurgery, Cardiology and Derm for his multiple medical issues. Physiatry was requested to perform EMG BLE. - History Source History Provided By: Patient, Medical Record - Past Medical History Cardio/Vascular: Yes: AFIB, CAD (Non-obstructive), HTN, Hyperlipdemia Pulmonary: Yes: COPD, Sleep Apnea Gastrointestinal: Yes: GERD Endocrine: Yes: Diabetes Mellitus - Past Surgical History Past Surgical History: Yes: Tonsillectomy - Alcohol/Substance Use Hx Alcohol Use: No - Smoking History Smoking history: Current every day smoker Have you smoked in the past 12 months: Yes Aproximately how many cigarettes per day: 10 If you are a former smoker, when did you quit?: On Chantix - Social History Usual Living Arrangement: Alone (alone in basement apartment with 7 steps to enter, previously Independent in ADLs without Assistive Device and has 2 sister nearby who assist as needed) Home Medications - Allergies Allergies/Adverse Reactions: Allergies Allergy/AdvReac Type Severity Reaction Status Date / Time No Known Allergies Allergy Verified 02/15/18 21:54 - Home Medications Home Medications: Ambulatory Orders Bupropion HCl [Wellbutrin Xl -] 150 mg PO DAILY 07/28/13 Ranolazine [Ranexa -] 1,000 mg PO BID 07/28/13 Rivaroxaban [Xarelto -] 20 mg PO DAILY 07/28/13 Salmeterol/Fluticasone [Advair 250Mcg/50Mcg -] 1 inh PO DAILY 07/28/13 Sotalol HCl [Sotalol] 80 mg PO BID 07/28/13 Tamsulosin HCl 0.4 mg PO DAILY 07/28/13 Amlodipine Bes/Olmesartan Med [Yamil 5-40 mg Tablet] 1 each PO DAILY 03/15/15 Potassium Chloride [K-Dur] 20 meq PO DAILY 03/15/15 Insulin Lispro Protamin/Lispro [Humalog Mix 50-50 Kwikpen] 15 unit SQ TID Ezetimibe 10 mg PO DAILY 04/29/17 Furosemide [Lasix -] 40 mg PO DAILY 04/29/17 Omeprazole 40 mg PO DAILY 04/29/17 Valacyclovir HCl [Valtrex -] 500 mg PO ASDIR 04/29/17 Atorvastatin Ca [Lipitor] 40 mg PO HS #30 tablet 04/30/17 Tiotropium [place] [Spiriva] 1 inh PO DAILY 02/16/18 Family Disease History - Family Disease History Family Disease History: [place]: Father (gastric cancer) Review of Systems Findings/Remarks: denies fevers, chills, changes in vision/ hearing/ mood, nausea, vomiting, constipation, diarrhea, dysuria, chronic B hand/ foot paresthesias Notes occasional CP and SOB as well as abdominal pain, chronic neck and back pain with new L rib pain Physical Exam Vital Signs: Vital Signs Temperature 98.1 F 02/17/18 10:00 Pulse Rate 66 02/17/18 10:00 Respiratory Rate 20 02/17/18 10:00 Blood Pressure 144/76 02/17/18 10:00 O2 Sat by Pulse Oximetry (%) 98 02/17/18 05:00 Musculoskeletal: Yes: Other (General: calm obese M sitting in bed NAD N/M: 5/5 BLE except for 4/5 L HF/ KE and R EHL; Pinprick and Temperature Intact BLE, Vibration Intact at B 1st MTP Extremities: 1+ BLE pitting edema, no B calf tenderness) Labs: CBC, BMP 02/17/18 06:00 02/17/18 06:00 Imaging - Results Chest X-ray: Report Reviewed (as per HPI) Cat Scan: Report Reviewed (CT cervical spine 02/16/18 shows chronic DDD C5-6 and C6-7 with facet arthropathy, central and foraminal stenosis) Ultrasound: Report Reviewed (as per HPI) Assessment/Plan Electrodiagnostics were performed, please see printed scan for details. Study may have been limited by body habitus/ edema. There is electrophysiological evidence of a severe length- dependent axonal and sensory polyneuropathy which is consistent with diabetic neuropathy. There is also evidence of a chronic and inactive R L4 radiculopathy. Impression: 1) Deficits mobility/ ADLs 2) Deconditioning 3) Gait abnormality/ falls 4) DM with neuropathy 5) Chronic cervical/ lumbar DDD/ DJD/ HNP with chronic R L4 radiculopathy 6) Syncope/ falls 7) Extensive cardiac hx including A fib, PVCs, CAD, CHF, HTN, HLD 8) hx COPD, sleep apnea 9) hx pancreatitis 10) Obesity Recommendations: 1) PT for stretching strengthening ROM balance and functional mobility 2) Falls, safety precautions 3) Cardiopulmonary, diabetic precautions 4) Modalities neck/ back prn 5) Pending possible Neurosurgical intervention once medically stable 6) DVT ppx: on Xarelto 7) Skin protection: float heels, frequent turning 8) Denies constipation on current bowel regimen 9) Nutrition for weight loss 10) Consider increasing gabapentin as tolerated, maximum daily dose 1200mg TID 11) Has not received flu shot/ pneumovax but amenable to getting while in hospital 12) Tight DM control 13) Continue plan per primary team 14) Smoking cessation information at discharge 15) Discharge planning: he will likely be able to return home with services once medically stable Thank you for this referral.
[2018-02-17] MEDS: ATORVASTATIN CA 40 MG TABLET (FP) PO SCH (22:27)
--- NOTE | 2018-02-17 23:01 | CONS ---
DATE OF CONSULTATION: DATE OF DICTATION: 02/17/2018 INFECTIOUS DISEASE CONSULTATION REQUESTING PHYSICIAN: Loli Raza M.D. CONSULTING PHYSICIAN: Magali Bernard M.D. HISTORY OF PRESENT ILLNESS: I am asked to see this 62-year-old man for blood infection. He was originally admitted on the after he had a syncopal event. He is being evaluated by cardiology and neurology. He has no history of any fevers or chills. He gives a history of a blood infection in November. Looking in the computer, he had one blood culture drawn on December 22, one bottle with strep bovis. He reports being given penicillin for this. He denies any fever. He is not sure why he had the blood culture drawn. He has not had any fevers since that time. His last colonoscopy was many years ago. He reports having had some intermittent rashes for which he has been treated by his primary doctor, Dr. Garza. His current history is notable for a syncopal event where he really has no recollection of what happened. PAST MEDICAL HISTORY: Notable for atrial fibrillation, coronary artery disease, hypertension, hyperlipidemia, COPD, sleep apnea, GERD, diabetes. SURGICAL HISTORY: Notable for tonsillectomy. SOCIAL HISTORY: He lives alone. He has no kids. He is retired from [employer]. He smokes a half pack per day. No history of any alcohol use. ALLERGIES: No known drug allergies. MEDICATION: At home include Spiriva, Valtrex, tamsulosin, sotalol, Advair, Xarelto, Ranexa, potassium, , insulin, furosemide, , Wellbutrin, Lipitor, and Yamil. REVIEW OF SYSTEMS: He feels fine. He has had some itchy rash on his hands recently and was just seen by dermatology who felt this was a form of eczema. Review of systems, he has no fevers or chills. He has no night sweats. He has no cough. He has not been to the dentist recently, and his last colonoscopy was many, many years ago. PHYSICAL EXAMINATION: VITAL SIGNS: Temperature is 98.3. He has had no fevers since admission. Pulse 68. Blood pressure 122/76, respiratory rate 16. He weighs 121 kg. HEENT: Normocephalic. Eyes are anicteric. NECK: Supple. LUNGS: Clear to auscultation. HEART: Regular rate and rhythm. ABDOMEN: Soft, nontender. EXTREMITIES: Without edema. SKIN: He has got some rash, erythematous papules on his forearms. He has some tinea cruris in his groin. LABORATORY: Notable for white count of 9.2, hemoglobin 13.2, platelets of 150. BUN and creatinine of 14 and 0.6. Liver function tests are normal. Blood cultures have been sent and are pending. He had an echocardiogram already that is grossly normal. IMPRESSION: 1. In summary, this is a 62-year-old man, very poor historian with diabetes, admitted with syncope, with a history of prior strep bovis in a blood culture from November of this year, for which he reports having taken antibiotics. I was able to reach Dr. Garza, who reports that he advised the patient admission several times which he refused. He treated him for a month with Augmentin. He has asked him multiple times to go for colonoscopy which he has also declined. In summary at this time I would definitely repeat blood cultures. His echo was unremarkable. Would check a sedimentation rate and CRP. Would not advise any antibiotics at this time. Would consider colonoscopy given the known association between strep bovis and colon cancer. 2. Syncope, management per neurology and cardiology. 3. He is being monitored by cardiology on telemetry. His beds are being adjusted. I see no role for antibiotics at this time. Will follow up his cultures and labs. Case was discussed with Dr. Garza. MAGALI BERNARD M.D. [id number]
--- NOTE | 2018-02-17 23:09 | CONSULT ---
Consult Consult Specialty:: endocrine Referred by:: dr.annabi urrutia Reason for Consultation:: diabetes mellitus hyperglycemia - History of Present Illness Chief Complaint: high sugars History of Present Illness: 62 y m dm,htn,afib,ashd,hyperlipidemia,copd,admitted after fall,with sustained injury left side,he had been dizzy previously,denies low blood sugar,nausea or vomiting,he had recently developed petechial rash,with sore throat and fever blood culture done in lab grew groupb streptbovis,he was advised to get colonoscopy and antibiotics given. - History Source History Provided By: Patient - Past Medical History Cardio/Vascular: Yes: AFIB, CAD (Non-obstructive), HTN, Hyperlipdemia Pulmonary: Yes: COPD, Sleep Apnea Gastrointestinal: Yes: GERD Endocrine: Yes: Diabetes Mellitus - Past Surgical History Past Surgical History: Yes: Tonsillectomy - Alcohol/Substance Use Hx Alcohol Use: No - Smoking History Smoking history: Current every day smoker Have you smoked in the past 12 months: Yes Aproximately how many cigarettes per day: 10 If you are a former smoker, when did you quit?: On Chantix - Social History Usual Living Arrangement: Alone (alone in basement apartment with 7 steps to enter, previously Independent in ADLs without Assistive Device and has 2 sister nearby who assist as needed) Home Medications - Allergies Allergies/Adverse Reactions: Allergies Allergy/AdvReac Type Severity Reaction Status Date / Time No Known Allergies Allergy Verified 02/15/18 21:54 - Home Medications Home Medications: Ambulatory Orders Bupropion HCl [Wellbutrin Xl -] 150 mg PO DAILY 07/28/13 Ranolazine [Ranexa -] 1,000 mg PO BID 07/28/13 Rivaroxaban [Xarelto -] 20 mg PO DAILY 07/28/13 Salmeterol/Fluticasone [Advair 250Mcg/50Mcg -] 1 inh PO DAILY 07/28/13 Sotalol HCl [Sotalol] 80 mg PO BID 07/28/13 Tamsulosin HCl 0.4 mg PO DAILY 07/28/13 Amlodipine Bes/Olmesartan Med [Yamil 5-40 mg Tablet] 1 each PO DAILY 03/15/15 Potassium Chloride [K-Dur] 20 meq PO DAILY 03/15/15 Insulin Lispro Protamin/Lispro [Humalog Mix 50-50 Kwikpen] 15 unit SQ TID Ezetimibe 10 mg PO DAILY 04/29/17 Furosemide [Lasix -] 40 mg PO DAILY 04/29/17 Omeprazole 40 mg PO DAILY 04/29/17 Valacyclovir HCl [Valtrex -] 500 mg PO ASDIR 04/29/17 Atorvastatin Ca [Lipitor] 40 mg PO HS #30 tablet 04/30/17 Tiotropium [place] [Spiriva] 1 inh PO DAILY 02/16/18 Family Disease History - Family Disease History Family Disease History: [place]: Father (gastric cancer) Review of Systems - Review of Systems Constitutional: reports: Lethargy, Weakness Eyes: reports: No Symptoms HENT: reports: No Symptoms Neck: reports: No Symptoms Cardiovascular: reports: Chest Pain, Palpitations, Shortness of Breath Respiratory: reports: Exercise Intolerance, SOB on Exertion Gastrointestinal: reports: Bloating, Nausea Genitourinary: reports: No Symptoms Musculoskeletal: reports: Back Pain, Extremity Pain, Muscle Pain, Muscle Cramps Physical Exam Vital Signs: Vital Signs Temperature 98.0 F 02/17/18 18:00 Pulse Rate 77 02/17/18 18:00 Respiratory Rate 18 02/17/18 18:00 Blood Pressure 128/75 02/17/18 18:00 O2 Sat by Pulse Oximetry (%) 95 02/17/18 13:00 Constitutional: Yes: Anxious Eyes: Yes: EOM Intact HENT: Yes: Normocephalic Neck: Yes: Trachea Midline Cardiovascular: Yes: Pulse Irregular Respiratory: Yes: CTA Bilaterally Gastrointestinal: Yes: Normal Bowel Sounds ...Rectal Exam: Yes: Deferred Renal/: Yes: WNL Musculoskeletal: Yes: Back Pain, Joint Stiffness, Joint Swelling, Muscle Pain Labs: CBC, BMP 02/17/18 06:00 02/17/18 06:00 Problem List - Problems (1) Type 2 diabetes mellitus with autonomic neuropathy Code(s): E11.43 - TYPE 2 DIABETES W DIABETIC AUTONOMIC (POLY)NEUROPATHY (2) Bacteremia Code(s): R78.81 - BACTEREMIA (3) CHF (congestive heart failure) Code(s): I50.9 - HEART FAILURE, UNSPECIFIED Qualifiers: Heart failure type: unspecified Heart failure chronicity: unspecified Qualified Code(s): I50.9 - Heart failure, unspecified (4) Facial abrasion Code(s): S00.81XA - ABRASION OF OTHER PART OF HEAD, INITIAL ENCOUNTER Qualifiers: Encounter type: initial encounter Qualified Code(s): S00.81XA - Abrasion of other part of head, initial encounter (5) Fall Code(s): W19.XXXA - UNSPECIFIED FALL, INITIAL ENCOUNTER (6) Fall from ground level Code(s): W18.30XA - FALL ON SAME LEVEL, UNSPECIFIED, INITIAL ENCOUNTER (7) Left rib fracture Code(s): S22.32XA - FRACTURE OF ONE RIB, LEFT SIDE, INIT FOR CLOS FX Qualifiers: Encounter type: initial encounter Rib fracture type: single rib Fracture type: closed Qualified Code(s): S22.32XA - Fracture of one rib, left side, initial encounter for closed fracture (8) Paroxysmal A-fib Code(s): I48.0 - PAROXYSMAL ATRIAL FIBRILLATION Assessment/Plan Current Active Problems Bacteremia (Acute) CHF (congestive heart failure) (Acute) Chronic anticoagulation (Acute) Facial abrasion (Acute) Fall (Acute) Fall from ground level (Acute) Left rib fracture (Acute) Paroxysmal A-fib (Acute) Spinal stenosis (Acute) Syncope (Acute) diabetes mellitus hyperglycemia Abnormal Lab Results 02/17/18 06:00 Chloride 109 H Anion Gap 4 L Random Glucose 182 H Calcium 8.4 L Laboratory Results - last 24 hr 02/17/18 02/17/18 02/17/18 06:00 06:00 06:00 WBC 9.2 RBC 4.26 Hgb 13.2 Hct 38.9 MCV 91.4 MCH 31.0 MCHC 33.9 RDW 12.9 Plt Count 150 MPV 9.1 Absolute Neuts (auto) 6.0 Neutrophils % 65.2 Lymphocytes % 22.5 Monocytes % 9.0 Eosinophils % 2.6 Basophils % 0.7 Nucleated RBC % 0 Sodium 142 Potassium 3.7 Chloride 109 H Carbon Dioxide 29 Anion Gap 4 L BUN 14 Creatinine 0.6 Creat Clearance w eGFR > 60 POC Glucometer 183 Random Glucose 182 H Calcium 8.4 L 02/17/18 02/17/18 02/17/18 10:59 16:15 20:48 WBC RBC Hgb Hct MCV MCH MCHC RDW Plt Count MPV Absolute Neuts (auto) Neutrophils % Lymphocytes % Monocytes % Eosinophils % Basophils % Nucleated RBC % Sodium Potassium Chloride Carbon Dioxide Anion Gap BUN Creatinine Creat Clearance w eGFR POC Glucometer 240 238 239 Random Glucose Calcium plan: bgm qid novolog insulin doses novolog 70/30 bid diet nutrition consult ck hba1c gi consult colonoscopy
[2018-02-18] MEDS: GABAPENTIN 300 MG CAPSULE (FP) PO SCH ×3 (06:16→21:48)
[2018-02-18] MEDS: INSULIN SLIDING SCALE (NOVOLOG) 1 VIAL SQ SCH ×4 (06:25→21:48)
--- NOTE | 2018-02-18 08:26 | PN ---
Progress Note, Physician - Current Medication List Current Medications: Active Medications Acetaminophen (Tylenol -) 650 mg PO Q4H PRN PRN Reason: PAIN OR FEVER Last Admin: 02/17/18 22:34 Dose: 650 mg Atorvastatin Calcium (Lipitor -) 40 mg PO HS [facility] Last Admin: 02/17/18 22:27 Dose: 40 mg Budesonide/Formoterol Fumarate (Symbicort 80/4.5mcg -) 2 puff IH BID [facility] Last Admin: 02/17/18 22:30 Dose: 2 puff Ezetimibe (Zetia -) 10 mg PO DAILY [facility] Last Admin: 02/17/18 11:00 Dose: 10 mg Gabapentin (Neurontin -) 300 mg PO TID [facility] Last Admin: 02/18/18 06:16 Dose: 300 mg Insulin Aspart (Novolog Mix 70/30 Vial) 22 units SQ BIDAC [facility] Last Admin: 02/17/18 18:00 Dose: 22 units Insulin Aspart (Novolog Vial Sliding Scale -) 1 vial SQ ACHS [facility]; Protocol Last Admin: 02/18/18 06:25 Dose: Not Given Ketoconazole (Nizoral 2% Cream -) 1 applic TP DAILY [facility] Last Admin: 02/17/18 09:39 Dose: 1 applic Oxycodone HCl (Roxicodone -) 5 mg PO Q6H PRN PRN Reason: PAIN LEVEL 7 - 10 Last Admin: 02/17/18 22:33 Dose: 5 mg Pantoprazole Sodium (Protonix -) 40 mg PO DAILY [facility] Last Admin: 02/17/18 09:39 Dose: 40 mg Potassium Chloride (K-Dur -) 20 meq PO DAILY [facility] Last Admin: 02/17/18 09:39 Dose: 20 meq Ranolazine (Ranexa -) 1,000 mg PO BID [facility] Last Admin: 02/17/18 22:29 Dose: 1,000 mg Rivaroxaban (Xarelto -) 20 mg PO DAILY [facility] Last Admin: 02/17/18 09:39 Dose: 20 mg Senna/Docusate Sodium (Pericolace -) 2 tablet PO HS PRN PRN Reason: CONSTIPATION Last Admin: 02/17/18 22:27 Dose: 2 tablet Sitagliptin Phosphate (Januvia -) 100 mg PO DAILY@0700 [facility] Last Admin: 02/17/18 06:52 Dose: Not Given Sotalol HCl (Betapace -) 80 mg PO BID [facility] Last Admin: 02/17/18 22:27 Dose: 80 mg Tamsulosin HCl (Flomax -) 0.4 mg PO DAILY@0830 [facility] Last Admin: 02/17/18 09:39 Dose: 0.4 mg Tiotropium [place] (Spiriva Respimat) 2 puff IH DAILY [facility] Last Admin: 02/17/18 09:40 Dose: 2 puff Tramadol HCl (Ultram -) 100 mg PO Q8H PRN PRN Reason: PAIN LEVEL 4 - 6 Last Admin: 02/17/18 06:01 Dose: 100 mg Triamcinolone Acetonide (Aristocort 0.1% Cream -) 1 applic TP BID [facility] Last Admin: 02/17/18 22:27 Dose: 1 applic Valsartan (Diovan -) 320 mg PO DAILY [facility] Last Admin: 02/17/18 09:39 Dose: 320 mg - Objective Vital Signs: Vital Signs Temperature 98.2 F 02/18/18 06:00 Pulse Rate 82 02/18/18 06:00 Respiratory Rate 18 02/18/18 06:00 Blood Pressure 127/68 02/18/18 06:00 O2 Sat by Pulse Oximetry (%) 93 L 02/17/18 21:00 Cardiovascular: Yes: Regular Rate and Rhythm Respiratory: Yes: Regular, CTA Bilaterally Gastrointestinal: Yes: Normal Bowel Sounds, Soft Labs: CBC, BMP 02/17/18 06:00 02/17/18 06:00 INR, PTT INR 1.19 (0.83-1.09) H 02/16/18 00:20 Assessment/Plan - Problems (1) Fall Assessment/Plan: -Physical therapy -Physiatry -cardiac workup unremarkable -Neurology and Neurosurgery consult noted and appreciated -await ct scan Code(s): W19.XXXA - UNSPECIFIED FALL, INITIAL ENCOUNTER (2) CAD (coronary artery disease) Assessment/Plan: -BB, Hansel Rueda -Cardiology on board Code(s): I25.10 - ATHSCL HEART DISEASE OF [place] CORONARY ARTERY W/O ANG PCTRS Qualifiers: Coronary Disease-Associated Artery/Lesion type: [place] artery [place] vs. transplanted heart: [place] heart Associated angina: with stable angina Qualified Code(s): I25.118 - Atherosclerotic heart disease of [place] coronary artery with other forms of angina pectoris (3) Diabetes mellitus, insulin dependent (IDDM), uncontrolled Assessment/Plan: -A1c at 9.2 -compliance? -BGM AC HS -start Januvia 100 mg po daily -Insulin sliding scale -Diabetic low sodium diet -Endocrinology consult -RD consult Code(s): E10.65 - TYPE 1 DIABETES MELLITUS WITH HYPERGLYCEMIA (4) Paroxysmal A-fib Assessment/Plan: -Tele--EKG -Cardiology -[facility] Code(s): I48.0 - PAROXYSMAL ATRIAL FIBRILLATION (5) Spinal stenosis Assessment/Plan: -cervical and lumbar -unable to do MRI due to weight -ct C spine ordered by NS -retrieve last MRI records from outpatient -pain management Code(s): M48.00 - SPINAL STENOSIS, SITE UNSPECIFIED (6) H/O Bacteremia--strep Assessment/Plan: -Repeat cultures neg -id consult noted -GI for colon (7) Rib Fx Assessment/Plan: -D/W pt -Pain Control/
[2018-02-18] MEDS ORDERED: PT OWN MED DRAWER 7, Y5N ONE ×4 (08:58→23:51)
[2018-02-18] MEDS: INSULIN (NOVOLOG MIX 70/30) 100 UNITS/ML MDV SQ SCH ×2 (09:01→17:05)
--- NOTE | 2018-02-18 09:01 | PN ---
Progress Note (short form) - Note Progress Note: Neurology History of Present Illness 62 YOM with h/o A-fib on Xarelto, PVCs, CAD, CHF, COPD, DM, HTN, HLD, sleep apnea, and pancreatitis p/w apparent syncopal episode while he was walking outside, falling onto his left face. He cannot recall the exact events leading up to the fall and just remembers becoming lightheaded/unsteady on his feet and then awakening on the ground. He felt normal for a short time afterward but just [employer] HEL[employer] to the ED became SOB and had palpitations and chest discomfort like his normal runs of PVCs. He additionally notes unchanged chronic low back and neck pain, but otherwise denies any new symptoms (no f/c/n/v/d, abdominal pain, focal weakness, headache, vision changes, etc). CT head completed and did not show any acute changes. Also completed Carotid doppler which showed mild atherosclerotic disease but no HD significant stenosis. Echo also reviewed and discussed and normal LV and RV function. Mention of LE weakness but patient is raising to gravity, possibly slight RLE drift but otherwise intact. CT C spine completed, seen by NSGY who is considering operative mgmt, in discussion with patient who knows Dr. Waggoner from prior. No plan for acute intervention at this time. EMG reviewed and discussed, consistent with severe diabetic neuropathy. Patient on gabapentin 300 tid. Discussed diet modification and sugar reduction. Allergies/Adverse Reactions: Allergies Allergy/AdvReac Type Severity Reaction Status Date / Time No Known Allergies Allergy Verified 02/15/18 21:54 Active Medications Acetaminophen (Tylenol -) 650 mg PO Q4H PRN PRN Reason: PAIN OR FEVER Last Admin: 02/17/18 22:34 Dose: 650 mg Atorvastatin Calcium (Lipitor -) 40 mg PO HS [facility] Last Admin: 02/17/18 22:27 Dose: 40 mg Budesonide/Formoterol Fumarate (Symbicort 80/4.5mcg -) 2 puff IH BID [facility] Last Admin: 02/17/18 22:30 Dose: 2 puff Ezetimibe (Zetia -) 10 mg PO DAILY [facility] Last Admin: 02/17/18 11:00 Dose: 10 mg Gabapentin (Neurontin -) 300 mg PO TID [facility] Last Admin: 02/18/18 06:16 Dose: 300 mg Insulin Aspart (Novolog Mix 70/30 Vial) 22 units SQ BIDAC [facility] Last Admin: 02/17/18 18:00 Dose: 22 units Insulin Aspart (Novolog Vial Sliding Scale -) 1 vial SQ ACHS [facility]; Protocol Last Admin: 02/18/18 06:25 Dose: Not Given Ketoconazole (Nizoral 2% Cream -) 1 applic TP DAILY [facility] Last Admin: 02/17/18 09:39 Dose: 1 applic Oxycodone HCl (Roxicodone -) 5 mg PO Q6H PRN PRN Reason: PAIN LEVEL 7 - 10 Last Admin: 02/17/18 22:33 Dose: 5 mg Pantoprazole Sodium (Protonix -) 40 mg PO DAILY [facility] Last Admin: 02/17/18 09:39 Dose: 40 mg Potassium Chloride (K-Dur -) 20 meq PO DAILY [facility] Last Admin: 02/17/18 09:39 Dose: 20 meq Ranolazine (Ranexa -) 1,000 mg PO BID [facility] Last Admin: 02/17/18 22:29 Dose: 1,000 mg Rivaroxaban (Xarelto -) 20 mg PO DAILY [facility] Last Admin: 02/17/18 09:39 Dose: 20 mg Senna/Docusate Sodium (Pericolace -) 2 tablet PO HS PRN PRN Reason: CONSTIPATION Last Admin: 02/17/18 22:27 Dose: 2 tablet Sitagliptin Phosphate (Januvia -) 100 mg PO DAILY@0700 [facility] Last Admin: 02/17/18 06:52 Dose: Not Given Sotalol HCl (Betapace -) 80 mg PO BID [facility] Last Admin: 02/17/18 22:27 Dose: 80 mg Tamsulosin HCl (Flomax -) 0.4 mg PO DAILY@0830 [facility] Last Admin: 02/17/18 09:39 Dose: 0.4 mg Tiotropium [place] (Spiriva Respimat) 2 puff IH DAILY [facility] Last Admin: 02/17/18 09:40 Dose: 2 puff Tramadol HCl (Ultram -) 100 mg PO Q8H PRN PRN Reason: PAIN LEVEL 4 - 6 Last Admin: 02/17/18 06:01 Dose: 100 mg Triamcinolone Acetonide (Aristocort 0.1% Cream -) 1 applic TP BID [facility] Last Admin: 02/17/18 22:27 Dose: 1 applic Valsartan (Diovan -) 320 mg PO DAILY [facility] Last Admin: 02/17/18 09:39 Dose: 320 mg *Physical Exam Vital Signs Period Temp Pulse Resp BP Sys/Perez Pulse Ox Last 24 Hr 97.5 F-98.3 F 66-82 16-20 122-144/54-76 93-95 Gen: Awake, alert, responds to questions Card: irregular, nml S1,S2 Resp: Normal symmetric effort, lungs clear to auscultation Abdomen: Soft, nontender, bowel sounds active Musculoskeletal: Adequate range of motion without significant deformity Head atraumatic and normocephalic CN: PERRL, EOMI intact, no apparent facial droop, no abnormalities in facial sensation, palate elevates, uvula and tongue midline Motor: ?RLE drift Sensory: Decreased PP in distal LE Coordination: Intact on [id number] testing Gait: Deferred CBCD WBC 9.2 K/mm3 (4.0-10.0) 02/17/18 06:00 RBC 4.26 M/mm3 (4.00-5.60) 02/17/18 06:00 Hgb 13.2 GM/dL (11.7-16.9) 02/17/18 06:00 Hct 38.9 % (35.4-49) 02/17/18 06:00 MCV 91.4 fl (80-96) 02/17/18 06:00 MCHC 33.9 g/dl (32.0-35.9) 02/17/18 06:00 RDW 12.9 % (11.9-15.9) 02/17/18 06:00 Plt Count 150 K/MM3 (134-434) 02/17/18 06:00 MPV 9.1 fl (7.5-11.1) 02/17/18 06:00 CMP Sodium 142 mmol/L (136-145) 02/17/18 06:00 Potassium 3.7 mmol/L (3.5-5.1) 02/17/18 06:00 Chloride 109 mmol/L (98-107) H 02/17/18 06:00 Carbon Dioxide 29 mmol/L (21-32) 02/17/18 06:00 Anion Gap 4 MMOL/L (8-16) L 02/17/18 06:00 BUN 14 mg/dL (7-18) 02/17/18 06:00 Creatinine 0.6 mg/dL (0.55-1.3) 02/17/18 06:00 Creat Clearance w eGFR > 60 (>60) 02/17/18 06:00 Random Glucose 182 mg/dL (74-106) H 02/17/18 06:00 Calcium 8.4 mg/dL (8.5-10.1) L 02/17/18 06:00 Total Bilirubin 0.3 mg/dL (0.2-1) 02/16/18 00:20 AST 26 U/L (15-37) 02/16/18 00:20 ALT 35 U/L (13-61) 02/16/18 00:20 Alkaline Phosphatase 110 U/L (45-117) 02/16/18 00:20 Total Protein 6.5 g/dl (6.4-8.2) 02/16/18 00:20 Albumin 3.2 g/dl (3.4-5.0) L 02/16/18 00:20 CARDIAC ENZYMES Troponin I < 0.02 ng/ml (0.00-0.05) 02/16/18 07:00 Imaging as above Plan: 62 YOM with h/o A-fib on Xarelto, PVCs, CAD, CHF, COPD, DM, HTN, HLD, sleep apnea, and pancreatitis p/w apparent syncopal episode while he was walking outside, falling onto his left face. He cannot recall the exact events leading up to the fall and just remembers becoming lightheaded/unsteady on his feet and then awakening on the ground. He felt normal for a short time afterward but just [employer] HEL[employer] to the ED became SOB and had palpitations and chest discomfort like his normal runs of PVCs. He additionally notes unchanged chronic low back and neck pain, but otherwise denies any new symptoms (no f/c/n/v/d, abdominal pain, focal weakness, headache, vision changes, etc). CT head completed and did not show any acute changes. Also completed Carotid doppler which showed mild atherosclerotic disease but no HD significant stenosis. Echo also reviewed and discussed and normal LV and RV function. Mention of LE weakness but patient is raising to gravity, possibly slight RLE drift but otherwise intact. CT C spine completed, seen by NSGY who is considering operative mgmt, in discussion with patient who knows Dr. Waggoner from prior. Recommend physical therapy, ambulation as tolerated. Defer to NSGY regarding operative mgmt. Continue cardiac workup, hydration, monitor Afib, telelmetry, fall precautions. No plan for acute surgical intervention at this time. EMG reviewed and discussed, consistent with severe diabetic neuropathy. Patient on gabapentin 300 tid. Discussed diet modification and sugar reduction. Weight loss recommended.
[2018-02-18] MEDS: sitaGLIPtin PHOSPHATE 100 MG TABLET (FP) PO SCH (09:02)
[2018-02-18] MEDS: VALSARTAN 160 MG TABLET (UD) PO SCH (09:03)
[2018-02-18] MEDS: SOTALOL HCL 80 MG TABLET (FP) PO SCH ×2 (09:04→21:47)
[2018-02-18] MEDS: EZETIMIBE 10 MG TABLET (FP) PO SCH (09:04)
[2018-02-18] MEDS: RIVAROXABAN 20 MG TABLET PO SCH (09:05)
[2018-02-18] MEDS: TIOTROPIUM BROMIDE 2.5 MCG (SPIRIVA) RESPIMAT INHALER IH SCH (09:06)
[2018-02-18] MEDS: BUDESONIDE/FORMETEROL FUMARATE 80/4.5 mcg INHALER IH SCH ×2 (09:08→21:47)
[2018-02-18] MEDS: POTASSIUM CHLORIDE TABS 20 MEQ TABLET.ER (FP) PO SCH (09:10)
[2018-02-18] MEDS: PANTOPRAZOLE 40 MG TABLET (FP) PO SCH (09:10)
[2018-02-18] MEDS: RANOLAZINE E.R. 1,000 MG TABLET (FP) PO SCH ×2 (09:10→21:47)
[2018-02-18] MEDS: TRIAMCINOLONE ACET 0.1% CREAM 15 GM TUBE TP SCH ×2 (09:11→21:51)
[2018-02-18] MEDS: KETOCONAZOLE 2% CREAM - 60GM TUBE TP SCH (09:11)
[2018-02-18] MEDS: TAMSULOSIN HCL 0.4 MG CAP.ER.24H (FP) PO SCH (09:15)
--- NOTE | 2018-02-18 09:44 | PN ---
Progress Note, Physician History of Present Illness: No further near or true syncope, left rib pain improving. - Current Medication List Current Medications: Active Medications Acetaminophen (Tylenol -) 650 mg PO Q4H PRN PRN Reason: PAIN OR FEVER Last Admin: 02/17/18 22:34 Dose: 650 mg Atorvastatin Calcium (Lipitor -) 40 mg PO HS [facility] Last Admin: 02/17/18 22:27 Dose: 40 mg Budesonide/Formoterol Fumarate (Symbicort 80/4.5mcg -) 2 puff IH BID [facility] Last Admin: 02/18/18 09:08 Dose: 2 puff Ezetimibe (Zetia -) 10 mg PO DAILY [facility] Last Admin: 02/18/18 09:04 Dose: 10 mg Gabapentin (Neurontin -) 300 mg PO TID [facility] Last Admin: 02/18/18 06:16 Dose: 300 mg Insulin Aspart (Novolog Mix 70/30 Vial) 22 units SQ BIDAC [facility] Last Admin: 02/18/18 09:01 Dose: 22 units Insulin Aspart (Novolog Vial Sliding Scale -) 1 vial SQ [facility]; Protocol Last Admin: 02/18/18 06:25 Dose: Not Given Ketoconazole (Nizoral 2% Cream -) 1 applic TP DAILY [facility] Last Admin: 02/18/18 09:11 Dose: 1 applic Oxycodone HCl (Roxicodone -) 5 mg PO Q6H PRN PRN Reason: PAIN LEVEL 7 - 10 Last Admin: 02/17/18 22:33 Dose: 5 mg Pantoprazole Sodium (Protonix -) 40 mg PO DAILY [facility] Last Admin: 02/18/18 09:10 Dose: 40 mg Potassium Chloride (K-Dur -) 20 meq PO DAILY [facility] Last Admin: 02/18/18 09:10 Dose: 20 meq Ranolazine (Ranexa -) 1,000 mg PO BID [facility] Last Admin: 02/18/18 09:10 Dose: 1,000 mg Rivaroxaban (Xarelto -) 20 mg PO DAILY [facility] Last Admin: 02/18/18 09:05 Dose: 20 mg Senna/Docusate Sodium (Pericolace -) 2 tablet PO HS PRN PRN Reason: CONSTIPATION Last Admin: 02/17/18 22:27 Dose: 2 tablet Sitagliptin Phosphate (Januvia -) 100 mg PO DAILY@0700 [facility] Last Admin: 02/18/18 09:02 Dose: 100 mg Sotalol HCl (Betapace -) 80 mg PO BID [facility] Last Admin: 02/18/18 09:04 Dose: 80 mg Tamsulosin HCl (Flomax -) 0.4 mg PO DAILY@0830 [facility] Last Admin: 02/18/18 09:15 Dose: 0.4 mg Tiotropium [place] (Spiriva Respimat) 2 puff IH DAILY [facility] Last Admin: 02/18/18 09:06 Dose: 2 puff Tramadol HCl (Ultram -) 100 mg PO Q8H PRN PRN Reason: PAIN LEVEL 4 - 6 Last Admin: 02/17/18 06:01 Dose: 100 mg Triamcinolone Acetonide (Aristocort 0.1% Cream -) 1 applic TP BID [facility] Last Admin: 02/18/18 09:11 Dose: 1 applic Valsartan (Diovan -) 320 mg PO DAILY [facility] Last Admin: 02/18/18 09:03 Dose: 320 mg - Objective Vital Signs: Vital Signs Temperature 98.2 F 02/18/18 06:00 Pulse Rate 82 02/18/18 06:00 Respiratory Rate 18 02/18/18 06:00 Blood Pressure 127/68 02/18/18 06:00 O2 Sat by Pulse Oximetry (%) 93 L 02/17/18 21:00 Constitutional: Yes: No Distress, Calm Neck: Yes: Supple, Tenderness Cardiovascular: Yes: Regular Rate and Rhythm, Other (with ectopic beats) Respiratory: Yes: Regular, Diminished Gastrointestinal: Yes: Normal Bowel Sounds, Soft Edema: No Labs: CBC, BMP 02/17/18 06:00 02/17/18 06:00 INR, PTT INR 1.19 (0.83-1.09) H 02/16/18 00:20 - ....Imaging EKG: Report Reviewed (Tele: SR with ROSEMARIE) Problem List - Problems (1) Left rib fracture Code(s): S22.32XA - FRACTURE OF ONE RIB, LEFT SIDE, INIT FOR CLOS FX Qualifiers: Encounter type: initial encounter Rib fracture type: single rib Fracture type: closed Qualified Code(s): S22.32XA - Fracture of one rib, left side, initial encounter for closed fracture (2) Paroxysmal A-fib Code(s): I48.0 - PAROXYSMAL ATRIAL FIBRILLATION (3) Spinal stenosis Code(s): M48.00 - SPINAL STENOSIS, SITE UNSPECIFIED (4) Syncope Code(s): R55 - SYNCOPE AND COLLAPSE Qualifiers: Syncope type: unspecified Qualified Code(s): R55 - Syncope and collapse (5) CAD (coronary artery disease) Code(s): I25.10 - ATHSCL HEART DISEASE OF [place] CORONARY ARTERY W/O ANG PCTRS Qualifiers: Coronary Disease-Associated Artery/Lesion type: [place] artery [place] vs. transplanted heart: [place] heart Associated angina: with stable angina Qualified Code(s): I25.118 - Atherosclerotic heart disease of [place] coronary artery with other forms of angina pectoris (6) Diabetes Code(s): E11.9 - TYPE 2 DIABETES MELLITUS WITHOUT COMPLICATIONS Qualifiers: Diabetes mellitus type: type 2 Diabetes mellitus custodial insulin use: without custodial use Diabetes mellitus complication status: with neurologic complications Diabetes mellitus complication detail: with unspecified neuropathy Qualified Code(s): E11.40 - Type 2 diabetes mellitus with diabetic neuropathy, unspecified (7) Diastolic dysfunction without heart failure Code(s): I51.9 - HEART DISEASE, UNSPECIFIED (8) HTN (hypertension) Code(s): I10 - ESSENTIAL (PRIMARY) HYPERTENSION Qualifiers: Hypertension type: essential hypertension Qualified Code(s): I10 - Essential (primary) hypertension (9) Hypercholesterolemia Code(s): E78.0 - PURE HYPERCHOLESTEROLEMIA * DO NOT USE * (10) Sleep apnea Code(s): G47.30 - SLEEP APNEA, UNSPECIFIED Qualifiers: Sleep apnea type: obstructive Qualified Code(s): G47.33 - Obstructive sleep apnea (adult) (pediatric) (11) Swelling of lower extremity Code(s): M79.89 - OTHER SPECIFIED SOFT TISSUE DISORDERS (12) Chronic anticoagulation Code(s): Z79.01 - ENTRY 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 Syncope with prodromal sxs 2. PAF on NOAC 3. CAD (non-obstructive), angina 4. HTN 5. Hypercholesterolemia 6. Type 2 DM with severe diabetic neuropathy 7. OSAS on CPAP 8. Diastolic dysfunction without LV failure 9. PVC 10. Left rib fracture post fall 11. Cervical and lumbar spondylosis PLAN: 1. Continue monitor on telemetry - currently does not have QT prolongation 2. Continue Sotalol 80 bid, Xarelto 20 qd, Ranexa 1000 bid, Lipitor 40 qd, Zetia 10 qd, Diovan 320 qd. Observe off Lasix 40 qd and Norvasc 5 qd, wrap legs 3. D/c planning. No need for stress test at this time, analgesia and IS as needed
--- NOTE | 2018-02-18 16:16 | CON.GI ---
Consult Consult Specialty:: Gi Referred by:: Dirk Garza md - History of Present Illness History of Present Illness: The patient was admitted for further evaluation and management of syncope. 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 He saw Dr Askew in the past. EGD was done in 2011 and was diagnosed to have erosive esophagitis. He cancelled twice for colonoscopy last 2012. He denies change in bowel habits, rectal bleeding and unexplained weight loss. He agrees to follow up for outpatient GI work-up - Past Medical History Cardio/Vascular: Yes: AFIB, CAD (Non-obstructive), HTN, Hyperlipdemia Pulmonary: Yes: COPD, Sleep Apnea Gastrointestinal: Yes: GERD Endocrine: Yes: Diabetes Mellitus - Past Surgical History Past Surgical History: Yes: Tonsillectomy - Alcohol/Substance Use Hx Alcohol Use: No - Smoking History Smoking history: Current every day smoker Have you smoked in the past 12 months: Yes Aproximately how many cigarettes per day: 10 If you are a former smoker, when did you quit?: On Chantix - Social History Usual Living Arrangement: Alone (alone in basement apartment with 7 steps to enter, previously Independent in ADLs without Assistive Device and has 2 sister nearby who assist as needed) Home Medications - Allergies Allergies/Adverse Reactions: Allergies Allergy/AdvReac Type Severity Reaction Status Date / Time No Known Allergies Allergy Verified 02/15/18 21:54 - Home Medications Home Medications: Ambulatory Orders Bupropion HCl [Wellbutrin Xl -] 150 mg PO DAILY 07/28/13 Ranolazine [Ranexa -] 1,000 mg PO BID 07/28/13 Rivaroxaban [Xarelto -] 20 mg PO DAILY 07/28/13 Salmeterol/Fluticasone [Advair 250Mcg/50Mcg -] 1 inh PO DAILY 07/28/13 Sotalol HCl [Sotalol] 80 mg PO BID 07/28/13 Tamsulosin HCl 0.4 mg PO DAILY 07/28/13 Amlodipine Bes/Olmesartan Med [Yamil 5-40 mg Tablet] 1 each PO DAILY 03/15/15 Potassium Chloride [K-Dur] 20 meq PO DAILY 03/15/15 Insulin Lispro Protamin/Lispro [Humalog Mix 50-50 Kwikpen] 15 unit SQ TID [facility] 10 mg PO DAILY 04/29/17 Furosemide [Lasix -] 40 mg PO DAILY 04/29/17 Omeprazole 40 mg PO DAILY 04/29/17 Valacyclovir HCl [Valtrex -] 500 mg PO ASDIR 04/29/17 Atorvastatin Ca [Lipitor] 40 mg PO HS #30 tablet 04/30/17 Tiotropium [place] [Spiriva] 1 inh PO DAILY 02/16/18 Family Disease History - Family Disease History Family Disease History: [place]: Father (gastric cancer) Review of Systems - Review of Systems Constitutional: denies: Fever Eyes: denies: Blind Spots HENT: denies: Difficult Swallowing Physical Exam-GI Vital Signs: Vital Signs Temperature 98.2 F 02/18/18 14:00 Pulse Rate 65 02/18/18 14:00 Respiratory Rate 18 02/18/18 14:00 Blood Pressure 138/69 02/18/18 14:00 O2 Sat by Pulse Oximetry (%) 93 L 02/17/18 21:00 Constitutional: Yes: Obese, Poor Hygeine HENT: Yes: Atraumatic Neck: Yes: Supple Cardiovascular: Yes: Regular Rate and Rhythm Respiratory: Yes: CTA Bilaterally ...Palpate: Yes: Soft. No: Firm/Rigid, Guarding, Hepatomegaly, Mass, Pulsatile Mass, Splenomegaly, Tenderness Labs: CBC, BMP 02/17/18 06:00 02/17/18 06:00 INR, PTT INR 1.19 (0.83-1.09) H 02/16/18 00:20 Problem List - Problems (1) Streptococcus bovis infection Assessment/Plan: R> for colonoscopy as an out patient Code(s): A49.1 - STREPTOCOCCAL INFECTION, UNSPECIFIED SITE
--- NOTE | 2018-02-18 16:21 | PN ---
Progress Note (short form) - Note Progress Note: feels well no complaints Vital Signs Period Temp Pulse Resp BP Sys/Perez Pulse Ox Last 24 Hr 97.5 F-98.2 F 65-82 16-18 127-153/54-75 93 cor-rrr lungs clear Laboratory Tests 02/18/18 02/18/18 06:00 06:00 ESR 31 H C-Reactive Protein 1.3 H CBC, BMP 02/17/18 06:00 02/17/18 06:00 Microbiology 02/16/18 13:50 Blood - Peripheral Venous Blood Culture - Preliminary NO GROWTH OBTAINED AFTER 48 HOURS, INCUBATION TO CONTINUE FOR 3 DAYS. 02/16/18 13:54 Blood - Peripheral Venous Blood Culture - Preliminary NO GROWTH OBTAINED AFTER 48 HOURS, INCUBATION TO CONTINUE FOR 3 DAYS. a/p strep bovis bacteremia in November received one month of po augmentin see no role for antiibotics at this time with negative blood cultures, normal transthoracic echo consider colonoscopy above d/w Dr Scott please call back if needed Problem List - Problems (1) Syncope Code(s): R55 - SYNCOPE AND COLLAPSE Qualifiers: Syncope type: unspecified Qualified Code(s): R55 - Syncope and collapse (2) Bacteremia Code(s): R78.81 - BACTEREMIA
[2018-02-18] MEDS: oxyCODONE HCL 5 MG TABLET PO PRN (17:45)
[2018-02-18] MEDS ORDERED: INSULIN (NOVOLOG) ASPART 100 UNITS/ML 10ML VIAL ONE (21:46)
[2018-02-18] MEDS: ATORVASTATIN CA 40 MG TABLET (FP) PO SCH (21:47)
[2018-02-19] MEDS: oxyCODONE HCL 5 MG TABLET PO PRN ×2 (00:31→08:19)
[2018-02-19] MEDS: ACETAMINOPHEN 325 MG TABLET (FP) PO PRN ×2 (00:32→08:20)
[2018-02-19] MEDS ORDERED: PT OWN MED DRAWER 7, Y5N ONE ×3 (02:02→10:00)
[2018-02-19] MEDS: INSULIN SLIDING SCALE (NOVOLOG) 1 VIAL SQ SCH (06:54)
[2018-02-19] MEDS ORDERED: INSULIN (NOVOLOG) ASPART 100 UNITS/ML 10ML VIAL ONE (06:56)
[2018-02-19] MEDS: GABAPENTIN 300 MG CAPSULE (FP) PO SCH (06:56)
[2018-02-19] MEDS: TAMSULOSIN HCL 0.4 MG CAP.ER.24H (FP) PO SCH (08:16)
[2018-02-19] MEDS: sitaGLIPtin PHOSPHATE 100 MG TABLET (FP) PO SCH (08:16)
[2018-02-19] MEDS: INSULIN (NOVOLOG MIX 70/30) 100 UNITS/ML MDV SQ SCH (08:18)
--- NOTE | 2018-02-19 09:29 | PN ---
Progress Note (short form) - Note Progress Note: Neurology History of Present Illness 62 YOM with h/o A-fib on Xarelto, PVCs, CAD, CHF, COPD, DM, HTN, HLD, sleep apnea, and pancreatitis p/w apparent syncopal episode while he was walking outside, falling onto his left face. He cannot recall the exact events leading up to the fall and just remembers becoming lightheaded/unsteady on his feet and then awakening on the ground. He felt normal for a short time afterward but just [employer]IR[employer] to the ED became SOB and had palpitations and chest discomfort like his normal runs of PVCs. He additionally notes unchanged chronic low back and neck pain, but otherwise denies any new symptoms (no f/c/n/v/d, abdominal pain, focal weakness, headache, vision changes, etc). CT head completed and did not show any acute changes. Also completed Carotid doppler which showed mild atherosclerotic disease but no HD significant stenosis. Echo also reviewed and discussed and normal LV and RV function. Mention of LE weakness but patient is raising to gravity, possibly slight RLE drift but otherwise intact. CT C spine completed, seen by NSGY who is considering operative mgmt, in discussion with patient who knows Dr. Waggoner from prior. No plan for acute intervention at this time. EMG reviewed and discussed, consistent with severe diabetic neuropathy. Patient on gabapentin 300 tid. Discussed diet modification and sugar reduction. Remains stable neurologically overnight. Allergies/Adverse Reactions: Allergies Allergy/AdvReac Type Severity Reaction Status Date / Time No Known Allergies Allergy Verified 02/15/18 21:54 Active Medications Acetaminophen (Tylenol -) 650 mg PO Q4H PRN PRN Reason: PAIN OR FEVER Last Admin: 02/19/18 08:20 Dose: 650 mg Atorvastatin Calcium (Lipitor -) 40 mg PO HS [facility] Last Admin: 02/18/18 21:47 Dose: 40 mg Budesonide/Formoterol Fumarate (Symbicort 80/4.5mcg -) 2 puff IH BID [facility] Last Admin: 02/18/18 21:47 Dose: 2 puff Ezetimibe (Zetia -) 10 mg PO DAILY [facility] Last Admin: 02/18/18 09:04 Dose: 10 mg Gabapentin (Neurontin -) 300 mg PO TID [facility] Last Admin: 02/19/18 06:56 Dose: 300 mg Insulin Aspart (Novolog Mix 70/30 Vial) 22 units SQ BIDAC [facility] Last Admin: 02/19/18 08:18 Dose: 22 units Insulin Aspart (Novolog Vial Sliding Scale -) 1 vial SQ ACHS [facility]; Protocol Last Admin: 02/19/18 06:54 Dose: Not Given Ketoconazole (Nizoral 2% Cream -) 1 applic TP DAILY [facility] Last Admin: 02/18/18 09:11 Dose: 1 applic Oxycodone HCl (Roxicodone -) 5 mg PO Q6H PRN PRN Reason: PAIN LEVEL 7 - 10 Last Admin: 02/19/18 08:19 Dose: 5 mg Pantoprazole Sodium (Protonix -) 40 mg PO DAILY [facility] Last Admin: 02/18/18 09:10 Dose: 40 mg Potassium Chloride (K-Dur -) 20 meq PO DAILY [facility] Last Admin: 02/18/18 09:10 Dose: 20 meq Ranolazine (Ranexa -) 1,000 mg PO BID [facility] Last Admin: 02/18/18 21:47 Dose: 1,000 mg Rivaroxaban (Xarelto -) 20 mg PO DAILY [facility] Last Admin: 02/18/18 09:05 Dose: 20 mg Senna/Docusate Sodium (Pericolace -) 2 tablet PO HS PRN PRN Reason: CONSTIPATION Last Admin: 02/17/18 22:27 Dose: 2 tablet Sitagliptin Phosphate (Januvia -) 100 mg PO DAILY@0700 [facility] Last Admin: 02/19/18 08:16 Dose: 100 mg Sotalol HCl (Betapace -) 80 mg PO BID [facility] Last Admin: 02/18/18 21:47 Dose: 80 mg Tamsulosin HCl (Flomax -) 0.4 mg PO DAILY@0830 [facility] Last Admin: 02/19/18 08:16 Dose: 0.4 mg Tiotropium [place] (Spiriva Respimat) 2 puff IH DAILY [facility] Last Admin: 02/18/18 09:06 Dose: 2 puff Tramadol HCl (Ultram -) 100 mg PO Q8H PRN PRN Reason: PAIN LEVEL 4 - 6 Last Admin: 02/17/18 06:01 Dose: 100 mg Triamcinolone Acetonide (Aristocort 0.1% Cream -) 1 applic TP BID [facility] Last Admin: 02/18/18 21:51 Dose: 1 applic Valsartan (Diovan -) 320 mg PO DAILY [facility] Last Admin: 02/18/18 09:03 Dose: 320 mg *Physical Exam Vital Signs Period Temp Pulse Resp BP Sys/Perez Pulse Ox Last 24 Hr 97.8 F-98.6 F 63-82 18-20 123-153/54-78 95 Gen: Awake, alert, responds to questions Card: irregular, nml S1,S2 Resp: Normal symmetric effort, lungs clear to auscultation Abdomen: Soft, nontender, bowel sounds active Musculoskeletal: Adequate range of motion without significant deformity Head atraumatic and normocephalic CN: PERRL, EOMI intact, no apparent facial droop, no abnormalities in facial sensation, palate elevates, uvula and tongue midline Motor: ?RLE drift Sensory: Decreased PP in distal LE Coordination: Intact on [id number] testing Gait: Deferred CBCD WBC 9.2 K/mm3 (4.0-10.0) 02/17/18 06:00 RBC 4.26 M/mm3 (4.00-5.60) 02/17/18 06:00 Hgb 13.2 GM/dL (11.7-16.9) 02/17/18 06:00 Hct 38.9 % (35.4-49) 02/17/18 06:00 MCV 91.4 fl (80-96) 02/17/18 06:00 MCHC 33.9 g/dl (32.0-35.9) 02/17/18 06:00 RDW 12.9 % (11.9-15.9) 02/17/18 06:00 Plt Count 150 K/MM3 (134-434) 02/17/18 06:00 MPV 9.1 fl (7.5-11.1) 02/17/18 06:00 CMP Sodium 142 mmol/L (136-145) 02/17/18 06:00 Potassium 3.7 mmol/L (3.5-5.1) 02/17/18 06:00 Chloride 109 mmol/L (98-107) H 02/17/18 06:00 Carbon Dioxide 29 mmol/L (21-32) 02/17/18 06:00 Anion Gap 4 MMOL/L (8-16) L 02/17/18 06:00 BUN 14 mg/dL (7-18) 02/17/18 06:00 Creatinine 0.6 mg/dL (0.55-1.3) 02/17/18 06:00 Creat Clearance w eGFR > 60 (>60) 02/17/18 06:00 Random Glucose 182 mg/dL (74-106) H 02/17/18 06:00 Calcium 8.4 mg/dL (8.5-10.1) L 02/17/18 06:00 Total Bilirubin 0.3 mg/dL (0.2-1) 02/16/18 00:20 AST 26 U/L (15-37) 02/16/18 00:20 ALT 35 U/L (13-61) 02/16/18 00:20 Alkaline Phosphatase 110 U/L (45-117) 02/16/18 00:20 Total Protein 6.5 g/dl (6.4-8.2) 02/16/18 00:20 Albumin 3.2 g/dl (3.4-5.0) L 02/16/18 00:20 CARDIAC ENZYMES Troponin I < 0.02 ng/ml (0.00-0.05) 02/16/18 07:00 Imaging as above Plan: 62 YOM with h/o A-fib on Xarelto, PVCs, CAD, CHF, COPD, DM, HTN, HLD, sleep apnea, and pancreatitis p/w apparent syncopal episode while he was walking outside, falling onto his left face. He cannot recall the exact events leading up to the fall and just remembers becoming lightheaded/unsteady on his feet and then awakening on the ground. He felt normal for a short time afterward but just [employer] to the ED became SOB and had palpitations and chest discomfort like his normal runs of PVCs. He additionally notes unchanged chronic low back and neck pain, but otherwise denies any new symptoms (no f/c/n/v/d, abdominal pain, focal weakness, headache, vision changes, etc). CT head completed and did not show any acute changes. Also completed Carotid doppler which showed mild atherosclerotic disease but no HD significant stenosis. Echo also reviewed and discussed and normal LV and RV function. Mention of LE weakness but patient is raising to gravity, possibly slight RLE drift but otherwise intact. CT C spine completed, seen by NSGY who is considering operative mgmt, in discussion with patient who knows Dr. Waggoner from prior. Recommend physical therapy, ambulation as tolerated. Defer to NSGY regarding operative mgmt. Continue cardiac workup, hydration, monitor Afib, telelmetry, fall precautions. No plan for acute surgical intervention at this time. EMG reviewed and discussed, consistent with severe diabetic neuropathy. Patient on gabapentin 300 tid. Discussed diet modification and sugar reduction. Weight loss recommended. Remains neurologically stable.
[2018-02-19] MEDS: BUDESONIDE/FORMETEROL FUMARATE 80/4.5 mcg INHALER IH SCH (09:55)
[2018-02-19] MEDS: TIOTROPIUM BROMIDE 2.5 MCG (SPIRIVA) RESPIMAT INHALER IH SCH (09:55)
[2018-02-19] MEDS: POTASSIUM CHLORIDE TABS 20 MEQ TABLET.ER (FP) PO SCH (09:56)
[2018-02-19] MEDS: TRIAMCINOLONE ACET 0.1% CREAM 15 GM TUBE TP SCH (09:57)
[2018-02-19] MEDS: SOTALOL HCL 80 MG TABLET (FP) PO SCH (09:57)
[2018-02-19] MEDS: RANOLAZINE E.R. 1,000 MG TABLET (FP) PO SCH (09:58)
[2018-02-19] MEDS: VALSARTAN 160 MG TABLET (UD) PO SCH (09:58)
[2018-02-19] MEDS: RIVAROXABAN 20 MG TABLET PO SCH (09:58)
[2018-02-19] MEDS: PANTOPRAZOLE 40 MG TABLET (FP) PO SCH (09:59)
[2018-02-19] MEDS: EZETIMIBE 10 MG TABLET (FP) PO SCH (10:00)
[2018-02-19] MEDS: KETOCONAZOLE 2% CREAM - 60GM TUBE TP SCH (10:01)
--- NOTE | 2018-02-19 11:18 | DS ---
Physical Examination Vital Signs: Vital Signs Temperature 97.8 F 02/19/18 06:00 Pulse Rate 78 02/19/18 06:00 Respiratory Rate 20 02/19/18 06:00 Blood Pressure 150/78 02/19/18 06:00 O2 Sat by Pulse Oximetry (%) 95 02/18/18 21:00 Findings/Remarks: DENIES CHEST PAIN OR SOB READY FOR DISCHARGE Constitutional: Yes: Mild Distress Eyes: Yes: WNL HENT: Yes: WNL Neck: Yes: WNL Cardiovascular: Yes: WNL Respiratory: Yes: WNL Gastrointestinal: Yes: WNL Renal/: Yes: WNL Musculoskeletal: Yes: WNL Extremities: Yes: WNL Edema: No Peripheral Pulses WNL: Yes Integumentary: Yes: WNL Wound/Incision: Yes: Clean/Dry Neurological: Yes: WNL ...Motor Strength: WNL Psychiatric: Yes: WNL Labs: CBC, BMP 02/17/18 06:00 02/17/18 06:00 Discharge Summary Reason For Visit: SYNCOPE ABRASION OF FACE Current Active Problems Bacteremia (Acute) CHF (congestive heart failure) (Acute) Chronic anticoagulation (Acute) Facial abrasion (Acute) Fall (Acute) Fall from ground level (Acute) Left rib fracture (Acute) Paroxysmal A-fib (Acute) Premature ventricular contraction (Acute) Spinal stenosis (Acute) Streptococcus bovis infection (Acute) Syncope (Acute) Type 2 diabetes mellitus with autonomic neuropathy (Acute) Procedures: Principal: CT SCAN Hospital Course: ADMITTED FOR SYNCOPE, ACUTE ON CHRONIC CHF, GIVEN LASIX AND CARDIAC NEURO TREATMENTS Condition: Improved - Instructions Diet, Activity, Other Instructions: LOW SODIUM/ADA SEE DR GONZALEZ NEUROLOGY AND DR HUGGINS OUTPATIENT IN THE NEXT WEEK Referrals: Dirk Garza MD [Primary Care Provider] - Disposition: HOME - Home Medications Comprehensive Discharge Medication List: Ambulatory Orders Bupropion HCl [Wellbutrin Xl -] 150 mg PO DAILY 07/28/13 Ranolazine [Ranexa -] 1,000 mg PO BID 07/28/13 Rivaroxaban [Xarelto -] 20 mg PO DAILY 07/28/13 Salmeterol/Fluticasone [Advair 250Mcg/50Mcg -] 1 inh PO DAILY 07/28/13 Sotalol HCl [Sotalol] 80 mg PO BID 07/28/13 Tamsulosin HCl 0.4 mg PO DAILY 07/28/13 Amlodipine Bes/Olmesartan Med [Yamil 5-40 mg Tablet] 1 each PO DAILY 03/15/15 Potassium Chloride [K-Dur] 20 meq PO DAILY 03/15/15 Insulin Lispro Protamin/Lispro [Humalog Mix 50-50 Kwikpen] 15 unit SQ TID Ezetimibe 10 mg PO DAILY 04/29/17 Furosemide [Lasix -] 40 mg PO DAILY 04/29/17 Omeprazole 40 mg PO DAILY 04/29/17 Valacyclovir HCl [Valtrex -] 500 mg PO ASDIR 04/29/17 Atorvastatin Ca [Lipitor] 40 mg PO HS #30 tablet 04/30/17 Tiotropium [place] [Spiriva] 1 inh PO DAILY 02/16/18
--- NOTE | 2018-02-19 11:47 | PN ---
Progress Note, Physician History of Present Illness: No further near or true syncope, left rib pain improving, occ palpitations referable to PVC. - Current Medication List Current Medications: Active Medications Acetaminophen (Tylenol -) 650 mg PO Q4H PRN PRN Reason: PAIN OR FEVER Last Admin: 02/19/18 08:20 Dose: 650 mg Atorvastatin Calcium (Lipitor -) 40 mg PO HS [facility] Last Admin: 02/18/18 21:47 Dose: 40 mg Budesonide/Formoterol Fumarate (Symbicort 80/4.5mcg -) 2 puff IH BID [facility] Last Admin: 02/19/18 09:55 Dose: 2 puff Ezetimibe (Zetia -) 10 mg PO DAILY [facility] Last Admin: 02/19/18 10:00 Dose: 10 mg Gabapentin (Neurontin -) 300 mg PO TID [facility] Last Admin: 02/19/18 06:56 Dose: 300 mg Insulin Aspart (Novolog Mix 70/30 Vial) 22 units SQ BIDAC [facility] Last Admin: 02/19/18 08:18 Dose: 22 units Insulin Aspart (Novolog Vial Sliding Scale -) 1 vial SQ ACHS [facility]; Protocol Last Admin: 02/19/18 06:54 Dose: Not Given Ketoconazole (Nizoral 2% Cream -) 1 applic TP DAILY [facility] Last Admin: 02/19/18 10:01 Dose: 1 applic Oxycodone HCl (Roxicodone -) 5 mg PO Q6H PRN PRN Reason: PAIN LEVEL 7 - 10 Last Admin: 02/19/18 08:19 Dose: 5 mg Pantoprazole Sodium (Protonix -) 40 mg PO DAILY [facility] Last Admin: 02/19/18 09:59 Dose: 40 mg Potassium Chloride (K-Dur -) 20 meq PO DAILY [facility] Last Admin: 02/19/18 09:56 Dose: 20 meq Ranolazine (Ranexa -) 1,000 mg PO BID [facility] Last Admin: 02/19/18 09:58 Dose: 1,000 mg Rivaroxaban (Xarelto -) 20 mg PO DAILY [facility] Last Admin: 02/19/18 09:58 Dose: 20 mg Senna/Docusate Sodium (Pericolace -) 2 tablet PO HS PRN PRN Reason: CONSTIPATION Last Admin: 02/17/18 22:27 Dose: 2 tablet Sitagliptin Phosphate (Januvia -) 100 mg PO DAILY@0700 [facility] Last Admin: 02/19/18 08:16 Dose: 100 mg Sotalol HCl (Betapace -) 80 mg PO BID [facility] Last Admin: 02/19/18 09:57 Dose: 80 mg Tamsulosin HCl (Flomax -) 0.4 mg PO DAILY@0830 [facility] Last Admin: 02/19/18 08:16 Dose: 0.4 mg Tiotropium [place] (Spiriva Respimat) 2 puff IH DAILY [facility] Last Admin: 02/19/18 09:55 Dose: 2 puff Tramadol HCl (Ultram -) 100 mg PO Q8H PRN PRN Reason: PAIN LEVEL 4 - 6 Last Admin: 02/17/18 06:01 Dose: 100 mg Triamcinolone Acetonide (Aristocort 0.1% Cream -) 1 applic TP BID [facility] Last Admin: 02/19/18 09:57 Dose: 1 applic Valsartan (Diovan -) 320 mg PO DAILY [facility] Last Admin: 02/19/18 09:58 Dose: 320 mg - Objective Vital Signs: Vital Signs Temperature 97.8 F 02/19/18 06:00 Pulse Rate 78 02/19/18 06:00 Respiratory Rate 20 02/19/18 06:00 Blood Pressure 150/78 02/19/18 06:00 O2 Sat by Pulse Oximetry (%) 95 02/18/18 21:00 Constitutional: Yes: No Distress, Calm Neck: Yes: Supple Cardiovascular: Yes: Regular Rate and Rhythm, Other (with ectopic beats) Respiratory: Yes: Regular, CTA Bilaterally Gastrointestinal: Yes: Normal Bowel Sounds, Soft Edema: No Labs: CBC, BMP 02/17/18 06:00 02/17/18 06:00 INR, PTT INR 1.19 (0.83-1.09) H 02/16/18 00:20 - ....Imaging EKG: Report Reviewed (Tele: SR jannet [facility]) Problem List - Problems (1) Left rib fracture Code(s): S22.32XA - FRACTURE OF ONE RIB, LEFT SIDE, INIT FOR CLOS FX Qualifiers: Encounter type: initial encounter Rib fracture type: single rib Fracture type: closed Qualified Code(s): S22.32XA - Fracture of one rib, left side, initial encounter for closed fracture (2) Paroxysmal A-fib Code(s): I48.0 - PAROXYSMAL ATRIAL FIBRILLATION (3) Spinal stenosis Code(s): M48.00 - SPINAL STENOSIS, SITE UNSPECIFIED (4) Syncope Code(s): R55 - SYNCOPE AND COLLAPSE Qualifiers: Syncope type: unspecified Qualified Code(s): R55 - Syncope and collapse (5) CAD (coronary artery disease) Code(s): I25.10 - ATHSCL HEART DISEASE OF [place] CORONARY ARTERY W/O ANG PCTRS Qualifiers: Coronary Disease-Associated Artery/Lesion type: [place] artery [place] vs. transplanted heart: [place] heart Associated angina: with stable angina Qualified Code(s): I25.118 - Atherosclerotic heart disease of [place] coronary artery with other forms of angina pectoris (6) Diabetes Code(s): E11.9 - TYPE 2 DIABETES MELLITUS WITHOUT COMPLICATIONS Qualifiers: Diabetes mellitus type: type 2 Diabetes mellitus terminologist insulin use: without retirement use Diabetes mellitus complication status: with neurologic complications Diabetes mellitus complication detail: with unspecified neuropathy Qualified Code(s): E11.40 - Type 2 diabetes mellitus with diabetic neuropathy, unspecified (7) Diastolic dysfunction without heart failure Code(s): I51.9 - HEART DISEASE, UNSPECIFIED (8) HTN (hypertension) Code(s): I10 - ESSENTIAL (PRIMARY) HYPERTENSION Qualifiers: Hypertension type: essential hypertension Qualified Code(s): I10 - Essential (primary) hypertension (9) Hypercholesterolemia Code(s): E78.0 - PURE HYPERCHOLESTEROLEMIA * DO NOT USE * (10) Sleep apnea Code(s): G47.30 - SLEEP APNEA, UNSPECIFIED Qualifiers: Sleep apnea type: obstructive Qualified Code(s): G47.33 - Obstructive sleep apnea (adult) (pediatric) (11) Swelling of lower extremity Code(s): M79.89 - OTHER SPECIFIED SOFT TISSUE DISORDERS (12) Chronic anticoagulation Code(s): Z79.01 - LONG-TERM (CURRENT) USE OF ANTICOAGULANTS (13) Premature ventricular contraction Code(s): I49.3 - VENTRICULAR PREMATURE DEPOLARIZATION Assessment/Plan 02/16/[address]: No PE, chronic lung disease, acute left 7th rib fracture 02/16/2018 Carotid U/S: Mild atherosclerosis without sig stenosis 02/16/2018 Echo: Normal LV and RV size and fxn, tr MR, TR, septal abnl due to conduction delay 1. Syncope with prodromal sxs without recurrence 2. PAF on NOAC 3. CAD (non-obstructive), angina 4. HTN 5. Hypercholesterolemia 6. Type 2 DM with severe diabetic neuropathy 7. OSAS on CPAP 8. Diastolic dysfunction without LV failure 9. Palpitations-> PVC 10. Left rib fracture post fall 11. Cervical and lumbar spondylosis 12. Strep bovis bacteremia in November post one month of po augmentin PLAN: 1. Continue Sotalol 80 bid, Xarelto 20 qd, Ranexa 1000 bid, Lipitor 40 qd, Zetia 10 qd, Diovan 320 qd. Observe off Lasix 40 qd and Norvasc 5 qd, wrap legs/ support stockings 2. D/c planning. No need for stress test at this time, analgesia and IS as needed 3. Plan for outpatient colonoscopy
[2018-02-19 12:04] VITALS: BP 144/63; PULSE 81; TEMP 97.6
== END 2018-02-19 12:12 | disposition home or self-care (01) | DRG 312 ==
LOC: JER 21:29 → JERBED 02-16 04:39 → UNDOADMOB 02-16 06:12 → JERBED 02-16 06:12 → J4S 02-16 06:32 → OBSVTOIN 02-19 09:55
PROVIDERS: ADMIT Internal Medicine; ATTEND Family Medicine
PROC: 4A01X4Z Measurement of Peripheral Nervous Electrical Activity, External Approach (ICD-10-PCS; principal; 2018-02-19)
DX: R55 Syncope and collapse (principal); S22.32XA Fracture of one rib, left side, initial encounter for closed fracture; I25.10 Atherosclerotic heart disease of native coronary artery without angina pectoris; G47.30 Sleep apnea, unspecified; M48.00 Spinal stenosis, site unspecified; R29.6 Repeated falls; J44.9 Chronic obstructive pulmonary disease, unspecified; E78.5 Hyperlipidemia, unspecified; E11.51 Type 2 diabetes mellitus with diabetic peripheral angiopathy without gangrene; E03.9 Hypothyroidism, unspecified; F17.210 Nicotine dependence, cigarettes, uncomplicated; I11.0 Hypertensive heart disease with heart failure; I50.9 Heart failure, unspecified; K21.9 Gastro-esophageal reflux disease without esophagitis; E11.65 Type 2 diabetes mellitus with hyperglycemia; I48.0 Paroxysmal atrial fibrillation; G47.33 Obstructive sleep apnea (adult) (pediatric); L25.9 Unspecified contact dermatitis, unspecified cause; R26.81 Unsteadiness on feet; K29.70 Gastritis, unspecified, without bleeding; Z95.5 Presence of coronary angioplasty implant and graft; W18.30XA Fall on same level, unspecified, initial encounter; E66.9 Obesity, unspecified; Z68.36 Body mass index [BMI] 36.0-36.9, adult; E11.40 Type 2 diabetes mellitus with diabetic neuropathy, unspecified; M47.26 Other spondylosis with radiculopathy, lumbar region; S00.81XA Abrasion of other part of head, initial encounter
CPT/HCPCS: 36415; 70450-TC; 71045-TC-FY; 71275-TC; 72125-TC; 80048; 80053; 80061; 80307; 82962; 83036; 83605; 83721; 83735; 83880; 84100; 84443; 84484; 85025; 85610; 85651; 85730; 86140; 87040; 93005; 93010; 93306-TC; 93880-TC; 95860-TC; 97116-GP; 97162-GP; 99285-25; G0378

== ENCOUNTER 2018-04-09 11:34 | Inpatient (IN) | payer OTHER ==
[2018-04-09 12:03] VITALS: BMI 35.2
--- NOTE | 2018-04-09 12:26 | PDOC ---
Attending Attestation - Resident Resident Name: Mackenzie Corbett - ED Attending Attestation I have performed the following: I have examined & evaluated the patient, The case was reviewed & discussed with the resident, I agree w/resident's findings & plan, Exceptions are as noted - HPI HPI: 04/09/18 12:21 62yo M hx neuropathy, CAD, CHF, DM, HTN, HL, COPD presents to the ED with progressive weakness in his legs for "years." Pt was at Dr. High's office this AM when he began to feel lightheaded, clammy and that he was going to pass out. He states his legs felt shaky and gave out. Dr. High was able to sit him down on a chair. No fall, head strike or LOC. Dr. High sent him to the ED for neuro c/s and admission. Pt states weakness in his legs has not increased in severity recently. He states his weakness has been diagnosed as neuropathy. Denies low back pain, urine/stool incontinence or retention. Pt reports he feels toilet paper when he wipes. Pt also reports SOB x weeks, not worse today. Denies fevers , chills, dizziness, CP, abd pain, N/V/D, headache. - Physicial Exam PE: 04/09/18 13:01 GENERAL: Awake, alert, and fully oriented, in no acute distress HEAD: No signs of trauma EYES: PERRLA, EOMI, sclera anicteric, conjunctiva clear ENT: Oropharynx clear without exudates. Moist mucosa NECK: Normal ROM, supple, no lymphadenopathy, JVD, or masses LUNGS: Breath sounds equal, clear to auscultation bilaterally. No wheezes, and no crackles HEART: Regular rate and rhythm, normal S1 and S2, no murmurs, rubs or gallops ABDOMEN: Soft, nontender, normoactive bowel sounds. No guarding, no rebound. No masses EXTREMITIES: Normal range of motion, no edema. No clubbing or cyanosis. No cords, erythema, or tenderness NEUROLOGICAL: Normal speech, cranial nerves intact, negative pronator drift, 5/ 5 strength in all 4 extremities, normal sensation to light touch in all 4 extremities, normal cerebellar exam, normal gait, normal reflexes and tone SKIN: +petechiae diffusely - Medical Decision Making 04/09/18 13:03 62yo M with MMP presents to the ED from Dr. High's office after pre-syncopal episode and weakness in LE. Vitals wnl. No cord compression red flags as pt has no acute change in weakness and on exam is 5/5 strength, normal rectal tone, normal sensation, normal reflexes. It's possible symptoms are due to neuropathy or legs felt weaker in setting of pre-syncope. Case discussed with Dr. Garay who requests neuro c/s. Given pre-syncope in the setting of significant cardiac hx will admit for obs. 04/09/18 13:[address] Tobar who will evaluate pt. Heart Score/ECG Review #1 04/09/18 13:09 Twelve-lead EKG was performed and reviewed by me. Normal sinus rhythm, rate 75. Normal axis and intervals. No ST elevations. Inverted T wave in lead 3 and TW flattening in aVF. When compared to EKG from 02/17/2018, flipped T-wave in lead III is new.
--- NOTE | 2018-04-09 12:48 | PDOC ---
History of Present Illness - General Chief Complaint: Shortness of Breath Stated Complaint: Shortness of Breath/FALL Time Seen by Provider: 04/09/18 11:52 History Source: Patient Exam Limitations: No Limitations - History of Present Illness Initial Comments: 04/09/18 12:43 Pt is a 62yo m with PMH of Afib (on Xarelto), CHF, CAD, PVD, COPD, DM, HTN, HLD , hypothyroidism sent to ED by stereotyper for evaluation of pre-syncope and leg weakness. Pt says he has been feeling weak in his legs for a couple months now and they have always been giving out. Pt said he was at stereotyper office when he started feeling lightheaded, clammy, SOB and felt weak in his legs and almost fell but was able to sit in a chair. He did not lose consciousness or hit his head. Pt says he has neuropathy in his hands and legs which cause him to have "shakes". He is denying chest pain, cough, fevers, chills, headache, abdominal pain, n/v/d, urinary symptoms, recent injuries. He denies numbness in the groin, loss of bowel/bladder. Does not use oxygen at home. PMD: Kayla Director Cardiovascular: Anila PMH: see hpi Meds: Xarelto, see med rec Past History - Past Medical History Allergies/Adverse Reactions: Allergies Allergy/AdvReac Type Severity Reaction Status Date / Time No Known Allergies Allergy Verified 04/09/18 12:03 Home Medications: Ambulatory Orders Bupropion HCl [Wellbutrin Xl -] 150 mg PO DAILY 07/28/13 Ranolazine [Ranexa -] 1,000 mg PO BID 07/28/13 Rivaroxaban [Xarelto -] 20 mg PO HS 07/28/13 Sotalol HCl [Sotalol] 80 mg PO TID 07/28/13 Tamsulosin HCl 0.4 mg PO HS 07/28/13 Potassium Chloride [K-Dur] 20 meq PO DAILY 03/15/15 Insulin Lispro Protamin/Lispro [Humalog Mix 50-50 Kwikpen] 15 unit SQ TID Ezetimibe 10 mg PO HS 04/29/17 Furosemide [Lasix -] 40 mg PO DAILY 04/29/17 Omeprazole 40 mg PO DAILY 04/29/17 Tiotropium [place] [Spiriva] 1 inh PO DAILY 02/16/18 Atorvastatin Ca [Lipitor] 80 mg PO DAILY 04/09/18 Anemia: No Asthma: No Cancer: No Cardiac Disorders: Yes (A-Fib, PVC) CVA: No COPD: Yes CHF: No Dementia: No Diabetes: Yes GI Disorders: Yes (gasritis) Disorders: No HTN: Yes Hypercholesterolemia: Yes Liver Disease: No Seizures: No Thyroid Disease: Yes (hypothyroid) - Surgical History Abdominal Surgery: No Appendectomy: No Cardiac Surgery: Yes (Angio-plasty) Cholecystectomy: No Lung Surgery: No Neurologic Surgery: No Orthopedic Surgery: Yes (both feet bone removal) - Immunization History Immunization Up to Date: Yes - Suicide/Smoking/Psychosocial Hx Smoking Status: No Smoking History: Current some day smoker Have you smoked in the past 12 months: Yes Number of Cigarettes Smoked Daily: 3 If you are a former smoker, when did you quit?: On Chantix Information on smoking cessation initiated: No 'Breaking Loose' booklet given: 04/28/17 Hx Alcohol Use: No Drug/Substance Use Hx: No Substance Use Type: None Hx Substance Use Treatment: No Review of Systems - Review of Systems Constitutional: Yes: Weakness. No: Chills, Fever HEENTM: Yes: Nose Congestion. No: Eye Pain, Blurred Vision, Recent change in vision, Tinnitus Respiratory: Yes: Shortness of Breath. No: Cough, Hemoptysis Cardiac (ROS): Yes: Lightheadedness. No: Chest Pain, Edema ABD/GI: Yes: Constipated. No: Diarrhea, Nausea, Rectal Bleeding, Vomiting, Abdominal cramping, Tarry Stools : No: Burning, Dysuria, Flank Pain, Hematuria Musculoskeletal: Yes: See HPI, Muscle Weakness (bilateral leg weakness). No: Back Pain, Joint Pain, Muscle Pain, Neck Pain Integumentary: Yes: Rash (hands and feet (chronic)). No: Dryness, Erythema, Pallor, Pruritus Neurological: Yes: Weakness. No: Headache, Numbness, Paresthesia, Tingling, Dizziness *Physical Exam - Vital Signs Last Vital Signs Temp Pulse Resp BP Pulse Ox 97.2 F L 76 17 120/76 96 04/09/18 11:45 04/09/18 11:45 04/09/18 11:45 04/09/18 11:45 04/09/18 11:45 - Physical Exam General Appearance: Yes: Nourished, Appropriately Dressed. No: Apparent Distress HEENT: positive: EOMI, LES, Pharynx Normal. negative: Sinus Tenderness Neck: positive: Trachea midline, Supple. negative: Carotid bruit, Lymphadenopathy (R), Lymphadenopathy (L), Rigidity Respiratory/Chest: positive: Decreased Breath Sounds (lower lung adam). negative: Crackles, Rales, Rhonchi, Stridor, Wheezing Cardiovascular: positive: Regular Rhythm, Regular Rate, S1, S2. negative: Edema , JVD, Murmur Vascular Pulses: Carotid (R): 2+, Carotid (L): 2+, Dorsalis-Pedis (R): 2+, Doralis-Pedis (L): 2+ Gastrointestinal/Abdominal: positive: Normal Bowel Sounds, Soft, Protuberent. negative: Guarding, Rebound, Tenderness Rectal Exam: positive: normal rectal tone Musculoskeletal: negative: CVA Tenderness, Decreased Range of Motion, Vertebral Tenderness Extremity: positive: Normal Capillary Refill, Pelvis Stable. negative: Coldness , Pedal Edema, Swelling, Calf Tenderness Integumentary: positive: Normal Color, Dry, Warm, Petechiae (on legs and hands ( chronic)). negative: Erythema, Pale, Cold, Clammy, Diaphoresis, Swelling Neurologic: positive: employment director II-XII NML intact, Fully Oriented, Alert, Normal Mood/ Affect, Normal Response, Motor Strength 5/5, Other (tremors in hands). negative : Facial Droop, Numbness, Sensory Deficit, Confused Deep Tendon Reflexes: Ankle (L): 2+, Ankle (R): 2+, Knee (L): 2+, Knee (R): 2+ ED Treatment Course - LABORATORY CBC & Chemistry Diagram: 04/09/18 12:45 04/09/18 12:49 - RADIOLOGY Radiology Studies Ordered: Category Date Time Status CHEST X-RAY PORTABLE* [RAD] Stat Radiology 04/09/18 12:07 Taken Medical Decision Making - Medical Decision Making 04/09/18 12:56 Pt is a 62yo m with PMH of Afib (on Xarelto), CHF, CAD, PVD, COPD, DM, HTN, HLD sent to ED by stereotyper for evaluation of pre-syncope and leg weakness. Vitals: Selected Entries 04/09/18 11:45 Temperature 97.2 F L Pulse Rate 76 Respiratory 17 Rate Blood Pressure 120/76 O2 Sat by Pulse 96 Oximetry (%) PE: decreased breath sounds in lower lung adam, no pitting edema, no neurological deficits, normal rectal tone, sensation intact, strength 5/5 in legs bilaterally, DP 2+. DDx: syncope, PVD, Cauda Equina, neuropathy -pt has been having weakness for 'months' not a new finding. Has feelings of coldness, pins and needles sometimes. normal rectal tone, low suspicion for cauda equina. Pt had pre-syncopal episode in office. Will order cardiac workup. Will consult neurology for neuropathy and weakness. CXR: non new changes since 02/16/18. No acute infiltrate or failure Laboratory Tests 04/09/18 04/09/18 04/09/18 12:45 12:45 12:49 WBC 10.7 H Hgb 14.7 Hct 41.9 Plt Count 173 PT with INR 21.00 H INR 1.77 H Sodium Potassium Chloride Carbon Dioxide BUN Creatinine Random Glucose Calcium Alkaline Phosphatase Troponin I < 0.02 04/09/18 12:49 WBC Hgb Hct Plt Count PT with INR INR Sodium 136 Potassium 4.4 Chloride 101 Carbon Dioxide 26 BUN 18 Creatinine 0.8 Random Glucose 308 H* Calcium 8.7 Alkaline Phosphatase 130 H Troponin I EKG: nsr, normal axis, no laurie or depressions Will admit pt for syncope/presyncope. *DC/Admit/Observation/Transfer Diagnosis at time of Disposition: Pre-syncope - Discharge Dispostion Condition at time of disposition: Good Decision to Admit order: Yes - Referrals - Patient Instructions - Post Discharge Activity
[2018-04-09 13:01] LABS: BASO % 0.6 % (0-2.0); EOS % 2.4 % (0-4.5); HEMATOCRIT 41.9 % (35.4-49); HEMOGLOBIN 14.7 GM/dL (11.7-16.9); LYMPH % 15.9 % (8-40); MCH 31.4 pg (25.7-33.7); MCHC 35.1 g/dl (32.0-35.9); MEAN CELL VOLUME 89.5 fl (80-96); MEAN PLT VOLUME 8.8 fl (7.5-11.1); MONO % 6.6 % (3.8-10.2); NEUT % 74.5 % (42.8-82.8); PLATELET COUNT 173 K/MM3 (134-434); RBC 4.68 M/mm3 (4.00-5.60); RDW 13.2 % (11.9-15.9); WHITE BLOOD COUNT 10.7 K/mm3 (4.0-10.0)
[2018-04-09 13:34] LABS: INR 1.77 (0.83-1.09)
[2018-04-09 13:37] LABS: ALBUMIN 3.4 g/dl (3.4-5.0); ALK PHOS 130 U/L (45-117); ANION GAP 8 MMOL/L (8-16); BILIRUBIN,TOTAL 0.3 mg/dL (0.2-1); BLOOD UREA NITROGEN 18 mg/dL (7-18); CALCIUM 8.7 mg/dL (8.5-10.1); CHLORIDE 101 mmol/L (98-107); CO2 26 mmol/L (21-32); CREATININE 0.8 mg/dL (0.55-1.3); POTASSIUM 4.4 mmol/L (3.5-5.1); SGOT/AST 13 U/L (15-37); SGPT/ALT 32 U/L (13-61); SODIUM 136 mmol/L (136-145); TOT PROT 6.5 g/dl (6.4-8.2)
--- NOTE | 2018-04-09 13:38 | EKG ---
Test Reason : Blood Pressure : / mmHG Vent. Rate : 075 BPM Atrial Rate : 075 BPM P-R Int : 168 ms QRS Dur : 126 ms QT Int : 438 ms P-R-T Axes : 000 059 008 degrees QTc Int : 489 ms NORMAL SINUS RHYTHM NON-SPECIFIC INTRA-VENTRICULAR CONDUCTION BLOCK ABNORMAL ECG WHEN COMPARED WITH ECG OF 17-FEB-2018 10:03, NO SIGNIFICANT CHANGE WAS FOUND Confirmed by CHUCK MARTIN MD ([id number]) on 04/09/2018 1:38:04 PM Referred By: Confirmed By:CHUCK MARTIN MD
[2018-04-09 13:44] LABS: GLUCOSE,RANDOM 308 mg/dL (74-106)
[2018-04-09] MEDS ORDERED: INSULIN REGULAR HUMAN 100 UNITS/ML *VIAL SQ ONE (14:11)
[2018-04-09] MEDS ORDERED: INSULIN (NOVOLOG) ASPART 100 UNITS/ML 10ML VIAL ONE (14:34)
--- NOTE | 2018-04-09 14:46 | HP ---
Admitting History and Physical - Primary Care Physician PCP: Dirk Garza - Admission History of Present Illness: 62yo M hx neuropathy, CAD, CHF, DM, HTN, HL, COPD presents to the ED with progressive weakness in his legs for "years." Pt was at Dr. High's office this AM when he began to feel lightheaded, clammy and that he was going to pass out. He states his legs felt shaky and gave out. Dr. High was able to sit him down on a chair. No fall, head strike or LOC. Dr. High sent him to the ED for neuro c/s and admission. Pt states weakness in his legs has not increased in severity recently. He states his weakness has been diagnosed as neuropathy. Denies low back pain, urine/stool incontinence or retention. Pt reports he feels toilet paper when he wipes. Pt also reports SOB x weeks, not worse today. patient complains of stuff nose and headaches and difficulty when he has bowel movement says he needs to strain he was supposed to see dr faith but has not had a chance to go to him as yet - Past Medical History Cardiovascular: Yes: AFIB, CAD (Non-obstructive), HTN, Hyperlipdemia Pulmonary: Yes: COPD, Sleep Apnea Gastrointestinal: Yes: GERD Endocrine: Yes: Diabetes Mellitus - Past Surgical History Past Surgical History: Yes: Tonsillectomy - Smoking History Smoking history: Current some day smoker Have you smoked in the past 12 months: Yes Aproximately how many cigarettes per day: 3 If you are a former smoker, when did you quit?: On Chantix - Alcohol/Substance Use Hx Alcohol Use: No Home Medications - Allergies Allergies/Adverse Reactions: Allergies Allergy/AdvReac Type Severity Reaction Status Date / Time No Known Allergies Allergy Verified 04/09/18 12:03 - Home Medications Home Medications: Ambulatory Orders Bupropion HCl [Wellbutrin Xl -] 150 mg PO DAILY 07/28/13 Ranolazine [Ranexa -] 1,000 mg PO BID 07/28/13 Rivaroxaban [Xarelto -] 20 mg PO HS 07/28/13 Sotalol HCl [Sotalol] 80 mg PO TID 07/28/13 Tamsulosin HCl 0.4 mg PO HS 07/28/13 Potassium Chloride [K-Dur] 20 meq PO DAILY 03/15/15 Insulin Lispro Protamin/Lispro [Humalog Mix 50-50 Kwikpen] 15 unit SQ TID Ezetimibe 10 mg PO HS 04/29/17 Furosemide [Lasix -] 40 mg PO DAILY 04/29/17 Omeprazole 40 mg PO DAILY 04/29/17 Tiotropium [place] [Spiriva] 1 inh PO DAILY 02/16/18 Atorvastatin Ca [Lipitor] 80 mg PO DAILY 04/09/18 Family Disease History - Family Disease History Family Disease History: CA: Father (gastric cancer) Physical Examination Vital Signs: Vital Signs Temperature 97.2 F L 04/09/18 11:45 Pulse Rate 76 04/09/18 11:45 Respiratory Rate 17 04/09/18 11:45 Blood Pressure 120/76 04/09/18 11:45 O2 Sat by Pulse Oximetry (%) 96 04/09/18 11:45 Labs: CBC, BMP 04/09/18 12:45 04/09/18 12:49 Problem List - Problems (1) Pre-syncope Assessment/Plan: telemetry echo carotid doppler ct head PT eval- leg weakness neurology neuro checks q4hr fall precuations Code(s): R55 - SYNCOPE AND COLLAPSE (2) Atrial fibrillation Assessment/Plan: zxarelto telemtry rate control Code(s): I48.91 - UNSPECIFIED ATRIAL FIBRILLATION Qualifiers: Atrial fibrillation type: paroxysmal Qualified Code(s): I48.0 - Paroxysmal atrial fibrillation (3) BPH (benign prostatic hyperplasia) Assessment/Plan: flomax Code(s): N40.0 - BENIGN PROSTATIC HYPERPLASIA WITHOUT LOWER URINRY TRACT SYMP (4) CAD (coronary artery disease) Assessment/Plan: ranexa sotalol Code(s): I25.10 - ATHSCL HEART DISEASE OF [place] CORONARY ARTERY W/O ANG PCTRS Qualifiers: Coronary Disease-Associated Artery/Lesion type: [place] artery [place] vs. transplanted heart: [place] heart Associated angina: with stable angina Qualified Code(s): I25.118 - Atherosclerotic heart disease of [place] coronary artery with other forms of angina pectoris (5) Diabetes Assessment/Plan: insulin slding scale bgm [id number]`c endocrine Code(s): E11.9 - TYPE 2 DIABETES MELLITUS WITHOUT COMPLICATIONS Qualifiers: Diabetes mellitus type: type 2 Diabetes mellitus jail insulin use: without termination clerk use Diabetes mellitus complication status: with neurologic complications Diabetes mellitus complication detail: with unspecified neuropathy Qualified Code(s): E11.40 - Type 2 diabetes mellitus with diabetic neuropathy, unspecified (6) Constipation Assessment/Plan: gi jose dr vianney CANTRELL Code(s): K59.00 - CONSTIPATION, UNSPECIFIED
[2018-04-09 14:47] LABS: URINE APPEARANCE CLEAR; URINE BILIRUBIN NEGATIVE (<2.0 mg/dL); URINE COLOR YELLOW; URINE GLUCOSE (UA) 3+ (NEGATIVE); URINE KETONE NEGATIVE (NEGATIVE); URINE LEUK ESTERASE NEGATIVE (NEGATIVE); URINE NITRITE NEGATIVE (NEGATIVE); URINE PROTEIN 1+ (NEGATIVE); URINE UROBILINOGEN NEGATIVE mg/dL (0.2-1.0)
[2018-04-09] MEDS ORDERED: SODIUM CHLORIDE NASAL SPRAY 44 ML BOTTLE NS PRN (14:51)
[2018-04-09 15:24] LABS: URINE HYALINE CAST 1 /lpf; URINE MUCUS RARE
--- NOTE | 2018-04-09 15:27 | CON.CARD ---
Consult Consult Specialty:: Cardiology Referred by:: Dr. Tan Reason for Consultation:: Near syncope - History of Present Illness Chief Complaint: Near syncope History of Present Illness: Patient is a 62 year old male with underlying history of PAF on NOAC (Xarelto), non-obstructive CAD, COPD, LIAN on CPAP, DM (type 2), HTN, hypercholesterolemia and history of pancreatitis who presents after a near syncopal episode without true syncope. Pt was at Dr. High's office this AM when he began to feel lightheaded, clammy and that he was going to pass out. He states his legs felt shaky and gave out. Chronic dyspnea, but denies chest pain, palpitations, ortopnea, PND or LE edema. - History Source History Provided By: Patient Limitations to Obtaining History: No Limitations - Past Medical History Cardio/Vascular: Yes: AFIB, CAD (Non-obstructive), HTN, Hyperlipdemia Pulmonary: Yes: COPD, Sleep Apnea Gastrointestinal: Yes: GERD Endocrine: Yes: Diabetes Mellitus - Past Surgical History Past Surgical History: Yes: Tonsillectomy - Alcohol/Substance Use Hx Alcohol Use: No - Smoking History Smoking history: Current some day smoker Have you smoked in the past 12 months: Yes Aproximately how many cigarettes per day: 3 If you are a former smoker, when did you quit?: On Chantix - Social History Usual Living Arrangement: Alone (alone in basement apartment with 7 steps to enter, previously Independent in ADLs without Assistive Device and has 2 sister nearby who assist as needed) Home Medications - Allergies Allergies/Adverse Reactions: Allergies Allergy/AdvReac Type Severity Reaction Status Date / Time No Known Allergies Allergy Verified 04/09/18 12:03 - Home Medications Home Medications: Ambulatory Orders Bupropion HCl [Wellbutrin Xl -] 150 mg PO DAILY 07/28/13 Ranolazine [Ranexa -] 1,000 mg PO BID 07/28/13 Rivaroxaban [Xarelto -] 20 mg PO HS 07/28/13 Sotalol HCl [Sotalol] 80 mg PO TID 07/28/13 Tamsulosin HCl 0.4 mg PO HS 07/28/13 Potassium Chloride [K-Dur] 20 meq PO DAILY 03/15/15 Insulin Lispro Protamin/Lispro [Humalog Mix 50-50 Kwikpen] 15 unit SQ TID Ezetimibe 10 mg PO HS 04/29/17 Furosemide [Lasix -] 40 mg PO DAILY 04/29/17 Omeprazole 40 mg PO DAILY 04/29/17 Tiotropium [place] [Spiriva] 1 inh PO DAILY 02/16/18 Atorvastatin Ca [Lipitor] 80 mg PO DAILY 04/09/18 Family Disease History - Family Disease History Family Disease History: CA: Father (gastric cancer) Vital Signs: Vital Signs Temperature 97.2 F L 04/09/18 11:45 Pulse Rate 76 04/09/18 11:45 Respiratory Rate 17 04/09/18 11:45 Blood Pressure 120/76 04/09/18 11:45 O2 Sat by Pulse Oximetry (%) 96 04/09/18 11:45 Constitutional: Yes: No Distress, Calm Neck: Yes: Supple Respiratory: Yes: Regular, Diminished, On Nasal O2 Gastrointestinal: Yes: Normal Bowel Sounds, Soft, Abdomen, Obese Cardiovascular: Yes: Regular Rate and Rhythm JVD: No Carotid Bruit: No Heart Sounds: Yes: S1, S2 Edema: No - Other Data Labs, Other Data: CBC, BMP 04/09/18 12:45 04/09/18 12:49 INR, PTT INR 1.77 (0.83-1.09) H 04/09/18 12:49 Troponin, BNP 04/09/18 12:45 Troponin I < 0.02 Troponin, BNP 04/09/18 12:45 Troponin I < 0.02 NSR @ 75 Problem List - Problems (1) Pre-syncope Code(s): R55 - SYNCOPE AND COLLAPSE (2) Atrial fibrillation Code(s): I48.91 - UNSPECIFIED ATRIAL FIBRILLATION Qualifiers: Atrial fibrillation type: paroxysmal Qualified Code(s): I48.0 - Paroxysmal atrial fibrillation (3) CAD (coronary artery disease) Code(s): I25.10 - ATHSCL HEART DISEASE OF [place] CORONARY ARTERY W/O ANG PCTRS Qualifiers: Coronary Disease-Associated Artery/Lesion type: [place] artery [place] vs. transplanted heart: [place] heart Associated angina: with stable angina Qualified Code(s): I25.118 - Atherosclerotic heart disease of [place] coronary artery with other forms of angina pectoris (4) Chronic anticoagulation Code(s): Z79.01 - STOCK CHECKER (CURRENT) USE OF ANTICOAGULANTS (5) Diastolic dysfunction without heart failure Code(s): I51.9 - HEART DISEASE, UNSPECIFIED (6) Paroxysmal A-fib Code(s): I48.0 - PAROXYSMAL ATRIAL FIBRILLATION (7) Sleep apnea Code(s): G47.30 - SLEEP APNEA, UNSPECIFIED Qualifiers: Sleep apnea type: obstructive Qualified Code(s): G47.33 - Obstructive sleep apnea (adult) (pediatric) (8) Type 2 diabetes mellitus with autonomic neuropathy Code(s): E11.43 - TYPE 2 DIABETES W DIABETIC AUTONOMIC (POLY)NEUROPATHY Qualifiers: Diabetes mellitus skilled nursing insulin use: with lockstitch front edge tape sewer use Qualified Code( s): E11.43 - Type 2 diabetes mellitus with diabetic autonomic (poly)neuropathy; Z79.4 - correction (current) use of insulin Assessment/Plan 02/16/[address]: No PE, chronic lung disease, acute left 7th rib fracture 02/16/2018 Carotid U/S: Mild atherosclerosis without sig stenosis 02/16/2018 Echo: Normal LV and RV size and fxn, tr MR, TR, septal abnl due to conduction delay 1. Near syncope with prodromal sxs 2. PAF on NOAC 3. CAD (non-obstructive), angina 4. HTN 5. Hypercholesterolemia 6. Type 2 DM with severe diabetic neuropathy 7. OSAS on CPAP 8. Diastolic dysfunction without LV failure 9. Palpitations-> PVC 10. Left rib fracture post fall 11. Cervical and lumbar spondylosis 12. Strep bovis bacteremia in November post one month of po augmentin PLAN: 1. Continue Sotalol 80 bid, Xarelto 20 qd, decrease Ranexa 500 bid, Lipitor 80 qd, Zetia 10 qd, resume Diovan 40 qd with uptitration as tolerated. Observe off Lasix 40 qd and Norvasc 5 qd, support stockings 2. Check orthostatic VS, upright tilt table testing as outpatient 3. Plan for outpatient colonoscopy 4. Thank you for consultative opportunity
--- NOTE | 2018-04-09 16:11 | ECHO ---
Name: LENY MONTGOMERY Exam:Adult Echocardiogram Study Date: 04/09/2018 03:05 PM Age: 62 yrs Reason For Study: Wall Motion Height: 72 in Weight: 260 lb BSA: 2.4 m2 MMode/2D Measurements & Calculations IVSd: 1.4 cm Ao root diam: 3.1 cm LVIDd: 5.4 cm LA dimension: 3.8 cm LVIDs: 3.3 cm LVPWd: 1.3 cm LVPWs: 1.5 cm EDV(Teich): 140.0 ml ESV(Teich): 44.0 ml LVOT diam: 2.2 cm TAPSE: 2.2 cm Doppler Measurements & Calculations MV E max : 78.1 cm/sec Ao V2 max: 124.9 cm/sec MV A max : 84.9 cm/sec Ao max P.3 mmHg MV E/A: 0.92 MV dec time: 0.17 sec FILIPE(V,D): 3.6 cm2 LV V1 max P.2 mmHg PA V2 max: 103.8 cm/sec LV V1 max: 114.0 cm/sec PA max P.3 mmHg Med Peak E' : 6.5 cm/sec Med E/e': 12.0 Lat Peak E' : 6.5 cm/sec Lat E/e': 12.0 Left Ventricle Left ventricular systolic function is normal. Ejection Fraction = 55-60%. Right Ventricle The right ventricle is normal in size and function. Atria Normal left and right atrial size and function. Mitral Valve The mitral valve is normal in structure and function. There is no mitral valve stenosis. There is mil d mitral regurgitation. Tricuspid Valve The tricuspid valve is normal in structure and function. Aortic Valve The aortic valve is not well visualized. No hemodynamically significant valvular aortic stenosis. No aortic regurgitation is present. Pulmonic Valve The pulmonic valve is not well seen, but is grossly normal. There is no pulmonic valvular stenosis. T here is no pulmonic valvular regurgitation. Great Vessels The aortic root is normal size. Pericardium/Pleura There is no pericardial effusion. Interpretation Summary Left ventricular systolic function is normal. Ejection Fraction = 55-60%. The right ventricle is normal in size and function. There is mild mitral regurgitation. There is no pericardial effusion. MD Rosario *Samantha 04/09/2018 04:11 PM
[2018-04-09] MEDS ORDERED: INSULIN (NOVOLOG MIX 70/30) 100 UNITS/ML MDV SQ SCH (16:30)
[2018-04-09] MEDS ORDERED: INSULIN SLIDING SCALE (NOVOLOG) 1 VIAL SQ SCH (16:30)
[2018-04-09] MEDS ORDERED: INSULIN (NOVOLOG MIX 70/30) 100 UNITS/ML MDV SQ ONE (18:37)
[2018-04-09] MEDS: RIVAROXABAN 20 MG TABLET PO SCH (19:20)
--- NOTE | 2018-04-09 20:09 | CONSULT ---
Consult Consult Specialty:: endocrine Referred by:: dr.saba valverde Reason for Consultation:: diabetes mellitus type 2 - History of Present Illness Chief Complaint: nearly fell down / felt weak almost collapsed History of Present Illness: 62yo M hx neuropathy, CAD, CHF, DM, HTN, HL, COPD presents to the ED with progressive weakness in his legs for "years." Pt was at Dr. High's office this AM when he began to feel lightheaded, clammy and that he was going to pass out. He states his legs felt shaky and gave out. Dr. High was able to sit him down on a chair. he did Not fall, head strike or LOC. Dr. High sent him to the ED for neuro c/s and admission. Pt states has frequent episodes of weakness but does not pass out just loses ballance and strength in feet - Past Medical History Cardio/Vascular: Yes: AFIB, CAD (Non-obstructive), HTN, Hyperlipdemia Pulmonary: Yes: COPD, Sleep Apnea Gastrointestinal: Yes: GERD Endocrine: Yes: Diabetes Mellitus - Past Surgical History Past Surgical History: Yes: Tonsillectomy - Alcohol/Substance Use Hx Alcohol Use: No - Smoking History Smoking history: Current some day smoker Have you smoked in the past 12 months: Yes Aproximately how many cigarettes per day: 3 If you are a former smoker, when did you quit?: On Chantix - Social History Usual Living Arrangement: Alone (alone in basement apartment with 7 steps to enter, previously Independent in ADLs without Assistive Device and has 2 sister nearby who assist as needed) Home Medications - Allergies Allergies/Adverse Reactions: Allergies Allergy/AdvReac Type Severity Reaction Status Date / Time No Known Allergies Allergy Verified 04/09/18 12:03 - Home Medications Home Medications: Ambulatory Orders Bupropion HCl [Wellbutrin Xl -] 150 mg PO DAILY 07/28/13 Ranolazine [Ranexa -] 1,000 mg PO BID 07/28/13 Rivaroxaban [Xarelto -] 20 mg PO HS 07/28/13 Sotalol HCl [Sotalol] 80 mg PO TID 07/28/13 Tamsulosin HCl 0.4 mg PO HS 07/28/13 Potassium Chloride [K-Dur] 20 meq PO DAILY 03/15/15 Insulin Lispro Protamin/Lispro [Humalog Mix 50-50 Kwikpen] 15 unit SQ TID Ezetimibe 10 mg PO HS 04/29/17 Furosemide [Lasix -] 40 mg PO DAILY 04/29/17 Omeprazole 40 mg PO DAILY 04/29/17 Tiotropium [place] [Spiriva] 1 inh PO DAILY 02/16/18 Atorvastatin Ca [Lipitor] 80 mg PO DAILY 04/09/18 Family Disease History - Family Disease History Family Disease History: CA: Father (gastric cancer) Review of Systems - Review of Systems Constitutional: reports: Lethargy, Weakness Eyes: reports: No Symptoms HENT: reports: No Symptoms Neck: reports: No Symptoms Cardiovascular: reports: Palpitations, Shortness of Breath Respiratory: reports: Exercise Intolerance, SOB on Exertion Gastrointestinal: reports: Constipation Genitourinary: reports: No Symptoms Breasts: reports: No Symptoms Reported Musculoskeletal: reports: Joint Pain, Muscle Cramps, Muscle Weakness Integumentary: reports: No Symptoms Neurological: reports: Numbness, Unsteady Gait, Weakness Endocrine: reports: Unexplained Weight Gain Psychiatric: reports: Anxiety Physical Exam Vital Signs: Vital Signs Temperature 97.8 F 04/09/18 19:32 Pulse Rate 75 04/09/18 19:43 Respiratory Rate 20 04/09/18 19:32 Blood Pressure 110/64 04/09/18 19:43 O2 Sat by Pulse Oximetry (%) 98 04/09/18 19:32 Constitutional: Yes: Anxious Eyes: Yes: EOM Intact HENT: Yes: Normocephalic Neck: Yes: Trachea Midline Cardiovascular: Yes: Pulse Irregular Respiratory: Yes: CTA Bilaterally, SOB on Exertion Gastrointestinal: Yes: Abdomen, Obese ...Rectal Exam: Yes: Deferred Renal/: Yes: WNL Musculoskeletal: Yes: Back Pain, Joint Swelling, Muscle Pain, Muscle Weakness Extremities: Yes: Delayed Capillary Refill Neurological: Yes: Alert, Oriented, Numbness, Tingling Labs: CBC, BMP 04/09/18 12:45 04/09/18 12:49 Problem List - Problems (1) Constipation Code(s): K59.00 - CONSTIPATION, UNSPECIFIED (2) Pre-syncope Code(s): R55 - SYNCOPE AND COLLAPSE (3) Abdominal pain Code(s): R10.9 - UNSPECIFIED ABDOMINAL PAIN (4) Acute gastroenteritis Code(s): K52.9 - NONINFECTIVE GASTROENTERITIS AND COLITIS, UNSPECIFIED (5) Atrial fibrillation Code(s): I48.91 - UNSPECIFIED ATRIAL FIBRILLATION Qualifiers: Atrial fibrillation type: paroxysmal Qualified Code(s): I48.0 - Paroxysmal atrial fibrillation (6) BPH (benign prostatic hyperplasia) Code(s): N40.0 - BENIGN PROSTATIC HYPERPLASIA WITHOUT LOWER URINRY TRACT SYMP Assessment/Plan Current Active Problems diabetes mellitus hyperglycemia/type 2 morbid obesity radiculotpathy neuropathy Abnormal Lab Results 04/09/18 04/09/18 04/09/18 12:45 12:49 12:49 WBC 10.7 H PT with INR 21.00 H INR 1.77 H Random Glucose 308 H* AST 13 L Alkaline Phosphatase 130 H Urine Protein Urine Glucose (UA) 04/09/18 14:20 WBC PT with INR INR Random Glucose AST Alkaline Phosphatase Urine Protein 1+ H Urine Glucose (UA) 3+ H Constipation (Acute) Pre-syncope (Acute Laboratory Results - last 24 hr 04/09/18 04/09/18 04/09/18 12:45 12:45 12:49 WBC 10.7 H RBC 4.68 Hgb 14.7 Hct 41.9 MCV 89.5 MCH 31.4 MCHC 35.1 RDW 13.2 Plt Count 173 MPV 8.8 Absolute Neuts (auto) 8.0 Neutrophils % 74.5 Lymphocytes % 15.9 D Monocytes % 6.6 Eosinophils % 2.4 Basophils % 0.6 Nucleated RBC % 0 PT with INR 21.00 H INR 1.77 H Sodium Potassium Chloride Carbon Dioxide Anion Gap BUN Creatinine Creat Clearance w eGFR POC Glucometer Random Glucose Calcium Total Bilirubin AST ALT Alkaline Phosphatase Troponin I < 0.02 Total Protein Albumin Urine Color Urine Appearance Urine pH Ur Specific [place] Urine Protein Urine Glucose (UA) Urine Ketones Urine Blood Urine Nitrite Urine Bilirubin Urine Urobilinogen Ur Leukocyte Esterase Urine WBC (Auto) Urine RBC (Auto) Hyaline Casts Urine Mucus 04/09/18 04/09/18 04/09/18 12:49 14:20 18:17 WBC RBC Hgb Hct MCV MCH MCHC RDW Plt Count MPV Absolute Neuts (auto) Neutrophils % Lymphocytes % Monocytes % Eosinophils % Basophils % Nucleated RBC % PT with INR INR Sodium 136 Potassium 4.4 Chloride 101 Carbon Dioxide 26 Anion Gap 8 BUN 18 Creatinine 0.8 Creat Clearance w eGFR > 60 POC Glucometer [id number] Random Glucose 308 H* Calcium 8.7 Total Bilirubin 0.3 AST 13 L ALT 32 Alkaline Phosphatase 130 H Troponin I Total Protein 6.5 Albumin 3.4 Urine Color Yellow Urine Appearance Clear Urine pH 5.0 Ur Specific [place] 1.031 Urine Protein 1+ H Urine Glucose (UA) 3+ H Urine Ketones Negative Urine Blood Negative Urine Nitrite Negative Urine Bilirubin Negative Urine Urobilinogen Negative Ur Leukocyte Esterase Negative Urine WBC (Auto) 1 Urine RBC (Auto) None Hyaline Casts 1 Urine Mucus Rare 04/09/18 19:30 WBC RBC Hgb Hct MCV MCH MCHC RDW Plt Count MPV Absolute Neuts (auto) Neutrophils % Lymphocytes % Monocytes % Eosinophils % Basophils % Nucleated RBC % PT with INR INR Sodium Potassium Chloride Carbon Dioxide Anion Gap BUN Creatinine Creat Clearance w eGFR POC Glucometer > 400 Random Glucose Calcium Total Bilirubin AST ALT Alkaline Phosphatase Troponin I Total Protein Albumin Urine Color Urine Appearance Urine pH Ur Specific [place] Urine Protein Urine Glucose (UA) Urine Ketones Urine Blood Urine Nitrite Urine Bilirubin Urine Urobilinogen Ur Leukocyte Esterase Urine WBC (Auto) Urine RBC (Auto) Hyaline Casts Urine Mucus plan: bgm qid novolog insulin dose levemir 40 units am dc 70/30 insulindoses ck tsh free t4
[2018-04-09] MEDS: SOTALOL HCL 80 MG TABLET (FP) PO SCH (21:55)
[2018-04-09] MEDS: DOCUSATE SODIUM 100 MG CAPSULE (FP) PO SCH (21:55)
[2018-04-09] MEDS: ATORVASTATIN CA 40 MG TABLET (FP) PO SCH (21:56)
[2018-04-09] MEDS: RANOLAZINE E.R. 500 MG TABLET (FP) PO SCH (21:56)
[2018-04-09] MEDS ORDERED: RANOLAZINE E.R. 1,000 MG TABLET (FP) PO SCH (22:00)
[2018-04-09] MEDS: EZETIMIBE 10 MG TABLET (FP) PO SCH (22:06)
[2018-04-09] MEDS: INSULIN SLIDING SCALE (NOVOLOG) 1 VIAL SQ SCH (22:06)
[2018-04-09] MEDS ORDERED: INSULIN (LEVEMIR) 100 UNITS/ML UNITS SQ ONE (22:07)
[2018-04-09] MEDS: INSULIN (LEVEMIR) 100 UNITS/ML UNITS SQ SCH (22:10)
[2018-04-10] MEDS ORDERED: PNEUMOC 13-VAL CONJ-DIP CRM/PF 0.5 ML DISP.SYRIN IM ONE (00:22)
[2018-04-10] MEDS ORDERED: ACETAMINOPHEN 325 MG TABLET (FP) PO ONE (01:56)
[2018-04-10] MEDS: INSULIN (LEVEMIR) 100 UNITS/ML UNITS SQ SCH ×2 (06:34→21:53)
[2018-04-10] MEDS: INSULIN SLIDING SCALE (NOVOLOG) 1 VIAL SQ SCH ×4 (06:34→22:10)
[2018-04-10] MEDS ORDERED: sitaGLIPtin PHOSPHATE 100 MG TABLET (FP) PO SCH (07:00)
[2018-04-10] MEDS: ACETAMINOPHEN 325 MG TABLET (FP) PO PRN (07:18)
[2018-04-10 07:43] LABS: HEMATOCRIT 42.7 % (35.4-49); HEMOGLOBIN 14.3 GM/dL (11.7-16.9); MCH 30.1 pg (25.7-33.7); MCHC 33.4 g/dl (32.0-35.9); MEAN CELL VOLUME 89.9 fl (80-96); MEAN PLT VOLUME 9.1 fl (7.5-11.1); PLATELET COUNT 163 K/MM3 (134-434); RBC 4.75 M/mm3 (4.00-5.60); WHITE BLOOD COUNT 9.3 K/mm3 (4.0-10.0)
[2018-04-10 08:29] LABS: ALBUMIN 3.4 g/dl (3.4-5.0); ALK PHOS 125 U/L (45-117); ANION GAP 6 MMOL/L (8-16); BILIRUBIN,TOTAL 0.3 mg/dL (0.2-1); BLOOD UREA NITROGEN 16 mg/dL (7-18); CHLORIDE 102 mmol/L (98-107); CHOLESTEROL 121 mg/dL (50-200); CO2 30 mmol/L (21-32); CREATININE 0.8 mg/dL (0.55-1.3); GLUCOSE,RANDOM 204 mg/dL (74-106); HDL CHOLESTEROL 27 mg/dL (40-60); N-TERMINAL BNP 22.2 pg/ml (5-125); PHOSPHOROUS 4.1 mg/dL (2.5-4.9); POTASSIUM 3.8 mmol/L (3.5-5.1); SGOT/AST 13 U/L (15-37); SGPT/ALT 30 U/L (13-61); SODIUM 138 mmol/L (136-145); TOT PROT 6.5 g/dl (6.4-8.2); TRIGLYCERIDES 191 mg/dL (0-150)
--- NOTE | 2018-04-10 09:21 | PN ---
Progress Note, Physician Chief Complaint: Events noted Complains of clammy feeling History of Present Illness: Patient was seen and examined. Awake and alert. Chart was reviewed Denies chest pain, SOB or palpitations - Current Medication List Current Medications: Active Medications Acetaminophen (Tylenol -) 650 mg PO Q6H PRN PRN Reason: PAIN LEVEL 1-5 OR FEVER Last Admin: 04/10/18 07:18 Dose: 650 mg Atorvastatin Calcium (Lipitor -) 40 mg PO HS [facility] Last Admin: 04/09/18 21:56 Dose: 40 mg Bupropion HCl (Wellbutrin Xl -) 150 mg PO DAILY [facility] Docusate Sodium (Colace -) 300 mg PO [facility] Last Admin: 04/09/18 21:55 Dose: 300 mg Ezetimibe (Zetia -) 10 mg PO [facility] Last Admin: 04/09/18 22:06 Dose: 10 mg Fluticasone Propionate (Flonase -) 2 spray NS DAILY@0800 [facility] Insulin Aspart (Novolog Vial Sliding Scale -) 1 vial SQ [facility]; Protocol Last Admin: 04/10/18 06:34 Dose: 6 units Insulin Detemir (Levemir Vial) 30 units SQ 0700,2200 [facility] Last Admin: 04/10/18 06:34 Dose: 30 units Pantoprazole Sodium (Protonix -) 20 mg PO DAILY@0800 [facility] Pneumococcal Polyvalent Vaccine (Pneumovax -) 0.5 ml IM .ONCE ONE Stop: 04/10/18 10:01 Polyethylene Glycol (Miralax (For Daily Use) -) 17 gm PO DAILY [facility] Ranolazine (Ranexa -) 500 mg PO BID [facility] Last Admin: 04/09/18 21:56 Dose: 500 mg Rivaroxaban (Xarelto -) 20 mg PO DAILY@1800 [facility] Last Admin: 04/09/18 19:20 Dose: 20 mg Sodium Chloride ([place] Nasal [place] -) 2 spray NS TID PRN PRN Reason: NASAL CONGESTION Sotalol HCl (Betapace -) 80 mg PO BID [facility] Last Admin: 04/09/18 21:55 Dose: 80 mg Tamsulosin HCl (Flomax -) 0.4 mg PO DAILY@0800 [facility] Tiotropium [place] (Spiriva Respimat) 2 puff IH DAILY [facility] Valsartan (Diovan -) 40 mg PO DAILY [facility] - Objective Vital Signs: Vital Signs Temperature 97.8 F 04/10/18 05:38 Pulse Rate 68 04/10/18 08:11 Respiratory Rate 18 04/10/18 08:11 Blood Pressure 152/88 04/10/18 08:11 O2 Sat by Pulse Oximetry (%) 98 04/10/18 00:01 Eyes: Yes: PERRL HENT: Yes: Atraumatic Neck: Yes: Supple Cardiovascular: Yes: Regular Rate and Rhythm, S1, S2 Respiratory: Yes: CTA Bilaterally Gastrointestinal: Yes: Normal Bowel Sounds, Soft. No: Tenderness Edema: No Additional Findings/Remarks: - Review of Systems Constitutional: reports: Weakness. denies: Chills, Fever Cardiovascular: denies: Palpitations, Shortness of Breath. denies: Chest Pain Respiratory: denies: SOB, SOB on Exertion. denies: Cough, Hemoptysis, Orthopnea , PND Gastrointestinal: denies: Abdominal Pain, Constipation, Diarrhea, Melena, Nausea , Rectal Bleeding, Vomiting Genitourinary: denies: Dysuria, Hematuria Musculoskeletal: denies: Joint Pain Neurological: reports: Weakness. (+) Dizziness, denies: Headache, Seizure, Syncope Labs: CBC, BMP 04/10/18 05:30 04/10/18 05:30 INR, PTT INR 1.77 (0.83-1.09) H 04/09/18 12:49 Problem List - Problems (1) Pre-syncope Code(s): R55 - SYNCOPE AND COLLAPSE (2) Atrial fibrillation Code(s): I48.91 - UNSPECIFIED ATRIAL FIBRILLATION Qualifiers: Atrial fibrillation type: paroxysmal Qualified Code(s): I48.0 - Paroxysmal atrial fibrillation (3) BPH (benign prostatic hyperplasia) Code(s): N40.0 - BENIGN PROSTATIC HYPERPLASIA WITHOUT LOWER URINRY TRACT SYMP (4) CAD (coronary artery disease) Code(s): I25.10 - ATHSCL HEART DISEASE OF [place] CORONARY ARTERY W/O ANG PCTRS Qualifiers: Coronary Disease-Associated Artery/Lesion type: [place] artery [place] vs. transplanted heart: [place] heart Associated angina: with stable angina Qualified Code(s): I25.118 - Atherosclerotic heart disease of [place] coronary artery with other forms of angina pectoris (5) Diabetes mellitus, insulin dependent (IDDM), uncontrolled Code(s): E10.65 - TYPE 1 DIABETES MELLITUS WITH HYPERGLYCEMIA Qualifiers: Coma presence: without coma (6) Diastolic dysfunction without heart failure Code(s): I51.9 - HEART DISEASE, UNSPECIFIED (7) HTN (hypertension) Code(s): I10 - ESSENTIAL (PRIMARY) HYPERTENSION Qualifiers: Hypertension type: essential hypertension Qualified Code(s): I10 - Essential (primary) hypertension (8) Hypercholesterolemia Code(s): E78.0 - PURE HYPERCHOLESTEROLEMIA * DO NOT USE * (9) Sleep apnea Code(s): G47.30 - SLEEP APNEA, UNSPECIFIED Qualifiers: Sleep apnea type: obstructive Qualified Code(s): G47.33 - Obstructive sleep apnea (adult) (pediatric) (10) Streptococcus bovis infection Code(s): A49.1 - STREPTOCOCCAL INFECTION, UNSPECIFIED SITE Assessment/Plan 1. Near syncope 2. PAF on NOAC 3. CAD (non-obstructive), angina 4. HTN 5. Hypercholesterolemia 6. Type 2 DM with severe diabetic neuropathy 7. OSAS on CPAP 8. Diastolic dysfunction without LV failure 9. Palpitations 10. Left rib fracture post fall 11. Cervical and lumbar spondylosis 12. History of Strep bovis bacteremia PLAN: 1. Continue Sotalol 80 BID, Xarelto 20 QD, Ranexa 500 BID, Lipitor 80 QD, Zetia 10 QD and Diovan 40 QD with uptitration as tolerated. 2. Check orthostasis. Consider upright tilt table testing as outpatient 3. Plan for outpatient colonoscopy 4. Neurology follow up Further plans are to follow Harsha High MD
[2018-04-10] MEDS ORDERED: POLYETHYLENE GLYCOL 3350 119 GM BTL PO SCH (10:00)
[2018-04-10] MEDS ORDERED: PNEUMOCOCCAL 23 VACCINE 0.5 ML VIAL IM ONE (10:00)
[2018-04-10] MEDS ORDERED: PT OWN MED DRAWER 7, Y5N ONE (10:30)
[2018-04-10] MEDS: RANOLAZINE E.R. 500 MG TABLET (FP) PO SCH ×2 (11:29→21:52)
[2018-04-10] MEDS: TAMSULOSIN HCL 0.4 MG CAP PO SCH (11:29)
[2018-04-10] MEDS: SOTALOL HCL 80 MG TABLET (FP) PO SCH ×2 (11:29→21:53)
[2018-04-10] MEDS: VALSARTAN 40 MG TABLET (FP) PO SCH (11:29)
[2018-04-10] MEDS: PANTOPRAZOLE 20 MG TABLET (FP) PO SCH (11:30)
--- NOTE | 2018-04-10 12:46 | PN ---
Progress Note, Physician Chief Complaint: PreSyncope Weakness History of Present Illness: NAD +orthostatic BP Seen by Cardiology Awaiting Neuro consult EMG and PT ordered Norvasc and Lasix being held for now - Current Medication List Current Medications: Active Medications Acetaminophen (Tylenol -) 650 mg PO Q6H PRN PRN Reason: PAIN LEVEL 1-5 OR FEVER Last Admin: 04/10/18 07:18 Dose: 650 mg Atorvastatin Calcium (Lipitor -) [address] [facility] Last Admin: 04/09/18 21:56 Dose: 40 mg Bupropion HCl (Wellbutrin Xl -) [address] [facility] Docusate Sodium (Colace -) [address] [facility] Last Admin: 04/09/18 21:55 Dose: 300 mg Ezetimibe (Zetia -) 10 mg PO [facility] Last Admin: 04/09/18 22:06 Dose: 10 mg Fluticasone Propionate (Flonase -) 2 spray NS DAILY@0800 [facility] Insulin Aspart (Novolog Vial Sliding Scale -) 1 vial SQ [facility]; Protocol Last Admin: 04/10/18 06:34 Dose: 6 units Insulin Detemir (Levemir Vial) 30 units SQ 0700,2200 [facility] Last Admin: 04/10/18 06:34 Dose: 30 units Pantoprazole Sodium (Protonix -) 20 mg PO DAILY@0800 [facility] Last Admin: 04/10/18 11:30 Dose: 20 mg Polyethylene Glycol (Miralax (For Daily Use) -) [address] [facility] Ranolazine (Ranexa -) [address] [facility] Last Admin: 04/10/18 11:29 Dose: 500 mg Rivaroxaban (Xarelto -) 20 mg PO DAILY@1800 [facility] Last Admin: 04/09/18 19:20 Dose: 20 mg Sodium Chloride ([place] Nasal [place] -) 2 spray NS TID PRN PRN Reason: NASAL CONGESTION Sotalol HCl (Betapace -) [address] [facility] Last Admin: 04/10/18 11:29 Dose: 80 mg Tamsulosin HCl (Flomax -) 0.4 mg PO DAILY@0800 [facility] Last Admin: 04/10/18 11:29 Dose: 0.4 mg Tiotropium [place] (Spiriva Respimat) [address] [facility] Valsartan (Diovan -) 40 mg PO DAILY [facility] Last Admin: 04/10/18 11:29 Dose: 40 mg - Objective Vital Signs: Vital Signs Temperature 97.8 F 04/10/18 05:38 Pulse Rate 68 04/10/18 08:11 Respiratory Rate 18 04/10/18 08:11 Blood Pressure 152/88 04/10/18 08:11 O2 Sat by Pulse Oximetry (%) 98 04/10/18 00:01 Constitutional: Yes: Well Nourished, No Distress, Calm Cardiovascular: Yes: Regular Rate and Rhythm Respiratory: Yes: Regular Gastrointestinal: Yes: Normal Bowel Sounds, Soft Musculoskeletal: Yes: Muscle Weakness Edema: No Peripheral Pulses WNL: Yes Neurological: Yes: Alert, Oriented Psychiatric: Yes: Alert, Oriented Labs: CBC, BMP 04/10/18 05:30 04/10/18 05:30 INR, PTT INR 1.77 (0.83-1.09) H 04/09/18 12:49 Problem List - Problems (1) Pre-syncope Assessment/Plan: -Echo-unremarkable -Tele monitoring -Cardiology on board -Neurology consult pending -Physical therapy -CT head shows chronic sinusitis Code(s): R55 - SYNCOPE AND COLLAPSE (2) Atrial fibrillation Assessment/Plan: -Chronic -Rate controlled -Tele monitoring -Cardiology consult -On Xarelto Code(s): I48.91 - UNSPECIFIED ATRIAL FIBRILLATION Qualifiers: Atrial fibrillation type: paroxysmal Qualified Code(s): I48.0 - Paroxysmal atrial fibrillation (3) Diabetes Assessment/Plan: -A1c at 9.1 -BGM AC HS -Diabetic low sodium diet -RD consult -Endocrine consult -Insulin: novolog sliding scale and levemir 30 U BID Code(s): E11.9 - TYPE 2 DIABETES MELLITUS WITHOUT COMPLICATIONS Qualifiers: Diabetes mellitus type: type 2 Diabetes mellitus moth exterminator insulin use: without moth exterminator use Diabetes mellitus complication status: with neurologic complications Diabetes mellitus complication detail: with unspecified neuropathy Qualified Code(s): E11.40 - Type 2 diabetes mellitus with diabetic neuropathy, unspecified (4) Chronic sinusitis Assessment/Plan: -Started on Flonase -Add Claritin - Code(s): J32.9 - CHRONIC SINUSITIS, UNSPECIFIED Assessment/Plan see problem list Physical therapy
[2018-04-10] MEDS: FLUTICASONE PROP 0.05% 16 GM NASAL SPRAY NS SCH (14:36)
[2018-04-10] MEDS: LORATADINE 10 MG TABLET PO SCH (14:37)
[2018-04-10] MEDS: TIOTROPIUM BROMIDE 2.5 MCG (SPIRIVA) RESPIMAT INHALER IH SCH (14:38)
--- NOTE | 2018-04-10 14:42 | CON.PULM ---
Consult Consult Specialty:: PULM/CCM Referred by:: JAME Reason for Consultation:: SOB - History of Present Illness Chief Complaint: NEAR SYNCOPE History of Present Illness: 62 M, PAF on NOAC (Xarelto), non-obstructive CAD, COPD, LIAN on CPAP (sees Dr Velasquez; sleep testing done many years ago in [place]; unaware of his index or CPAP settings), DM (type 2), HTN, hypercholesterolemia and history of pancreatitis. Admitted via the ER due to a near syncopal episode. No overt CP or SOB. He does have chronic TRUONG. He saw Dr Velasquez a few weeks ago and advised to continue his Spiriva. CXR: Poor inspiratory effort. No acute process is appreciated - History Source History Provided By: Patient Limitations to Obtaining History: No Limitations - Past Medical History Cardio/Vascular: Yes: AFIB, CAD (Non-obstructive), HTN, Hyperlipdemia Pulmonary: Yes: COPD, Sleep Apnea Gastrointestinal: Yes: GERD Endocrine: Yes: Diabetes Mellitus - Past Surgical History Past Surgical History: Yes: Tonsillectomy - Alcohol/Substance Use Hx Alcohol Use: No - Smoking History Smoking history: Current some day smoker Have you smoked in the past 12 months: Yes Aproximately how many cigarettes per day: 3 If you are a former smoker, when did you quit?: On Chantix - Social History Usual Living Arrangement: Alone (alone in basement apartment with 7 steps to enter, previously Independent in ADLs without Assistive Device and has 2 sister nearby who assist as needed) Home Medications - Allergies Allergies/Adverse Reactions: Allergies Allergy/AdvReac Type Severity Reaction Status Date / Time No Known Allergies Allergy Verified 04/09/18 12:03 - Home Medications Home Medications: Ambulatory Orders Bupropion HCl [Wellbutrin Xl -] 150 mg PO DAILY 07/28/13 Ranolazine [Ranexa -] 1,000 mg PO BID 07/28/13 Rivaroxaban [Xarelto -] 20 mg PO HS 07/28/13 Sotalol HCl [Sotalol] 80 mg PO TID 07/28/13 Tamsulosin HCl 0.4 mg PO HS 07/28/13 Potassium Chloride [K-Dur] 20 meq PO DAILY 03/15/15 Insulin Lispro Protamin/Lispro [Humalog Mix 50-50 Kwikpen] 15 unit SQ TID Ezetimibe 10 mg PO HS 04/29/17 Furosemide [Lasix -] 40 mg PO DAILY 04/29/17 Omeprazole 40 mg PO DAILY 04/29/17 Tiotropium [place] [Spiriva] 1 inh PO DAILY 02/16/18 Atorvastatin Ca [Lipitor] 80 mg PO DAILY 04/09/18 Family Disease History - Family Disease History Family Disease History: CA: Father (gastric cancer) Review of Systems - Review of Systems Constitutional: denies: Chills, Fever Eyes: reports: No Symptoms HENT: reports: No Symptoms Neck: reports: No Symptoms Cardiovascular: reports: Shortness of Breath. denies: Chest Pain, Edema, Palpitations Respiratory: reports: Cough, Exercise Intolerance, Snoring, SOB, SOB on Exertion. denies: Hemoptysis, Orthopnea, Wheezing Gastrointestinal: reports: No Symptoms Genitourinary: reports: No Symptoms Breasts: reports: No Symptoms Reported Musculoskeletal: reports: No Symptoms Integumentary: reports: No Symptoms Neurological: reports: Syncope. denies: Change in LOC, Change in Speech, Seizure Endocrine: reports: No Symptoms Hematology/Lymphatic: reports: No Symptoms Psychiatric: reports: No Symptoms Physical Exam Vital Sings: Vital Signs Temperature 97.8 F 04/10/18 05:38 Pulse Rate 68 04/10/18 08:11 Respiratory Rate 18 04/10/18 08:11 Blood Pressure 152/88 04/10/18 08:11 O2 Sat by Pulse Oximetry (%) 98 04/10/18 00:01 Constitutional: Yes: No Distress, Calm, Anxious, Obese Eyes: Yes: Conjunctiva Clear, EOM Intact HENT: Yes: Atraumatic, Normocephalic Neck: Yes: Supple, Trachea Midline Cardiovascular: Yes: Pulse Irregular Respiratory: Yes: CTA Bilaterally, SOB on Exertion. No: Accessory Muscle Use, On Nasal O2, Rales, Rhonchi, SOB, Stridor, Tachypnea, Wheezes ...Inspection: Yes: WNL ...Clubbing: No Gastrointestinal: Yes: Normal Bowel Sounds, Soft Renal/: Yes: WNL Musculoskeletal: Yes: WNL Extremities: Yes: WNL Edema: No Peripheral Pulses WNL: Yes Integumentary: Yes: WNL Neurological: Yes: WNL, Alert, Oriented ...Motor Strength: WNL Psychiatric: Yes: WNL, Alert, Oriented Labs: CBC, BMP 04/10/18 05:30 04/10/18 05:30 Imaging - Results Chest X-ray: Report Reviewed, Image Reviewed Problem List - Problems (1) Chronic sinusitis Code(s): J32.9 - CHRONIC SINUSITIS, UNSPECIFIED (2) Pre-syncope Code(s): R55 - SYNCOPE AND COLLAPSE (3) Atrial fibrillation Code(s): I48.91 - UNSPECIFIED ATRIAL FIBRILLATION Qualifiers: Atrial fibrillation type: paroxysmal Qualified Code(s): I48.0 - Paroxysmal atrial fibrillation (4) BPH (benign prostatic hyperplasia) Code(s): N40.0 - BENIGN PROSTATIC HYPERPLASIA WITHOUT LOWER URINRY TRACT SYMP (5) Back pain Code(s): M54.9 - DORSALGIA, UNSPECIFIED (6) Cough Code(s): R05 - COUGH (7) Depression Code(s): F32.9 - MAJOR DEPRESSIVE DISORDER, SINGLE EPISODE, UNSPECIFIED (8) Diabetes Code(s): E11.9 - TYPE 2 DIABETES MELLITUS WITHOUT COMPLICATIONS Qualifiers: Diabetes mellitus type: type 2 Diabetes mellitus computer terminal operator insulin use: without half-way use Diabetes mellitus complication status: with neurologic complications Diabetes mellitus complication detail: with unspecified neuropathy Qualified Code(s): E11.40 - Type 2 diabetes mellitus with diabetic neuropathy, unspecified (9) HTN (hypertension) Code(s): I10 - ESSENTIAL (PRIMARY) HYPERTENSION Qualifiers: Hypertension type: essential hypertension Qualified Code(s): I10 - Essential (primary) hypertension (10) Hypercholesterolemia Code(s): E78.0 - PURE HYPERCHOLESTEROLEMIA * DO NOT USE * (11) Sleep apnea Code(s): G47.30 - SLEEP APNEA, UNSPECIFIED Qualifiers: Sleep apnea type: obstructive Qualified Code(s): G47.33 - Obstructive sleep apnea (adult) (pediatric) (12) Spinal stenosis Code(s): M48.00 - SPINAL STENOSIS, SITE UNSPECIFIED Assessment/Plan Continue Spiriva OD O2 as needed Advised patient to have his family bring his own CPAP device as he does not know the settings No smoking No indication for systemic steroids No ABX Advised to followup with Dr Velasquez for further TRUONG workup Thank you. Dr León
[2018-04-10] MEDS: RIVAROXABAN 20 MG TABLET PO SCH (17:33)
--- NOTE | 2018-04-10 18:58 | CON.GI ---
Consult Consult Specialty:: GI - History of Present Illness History of Present Illness: 62 y/o male with PMH of PAF on (Xarelto), non-obstructive CAD, COPD, LIAN on CPAP (sees Dr Velasquez; sleep testing done many years ago in [place]; unaware of his index or CPAP settings), DM (type 2), HTN, hypercholesterolemia and history of pancreatitis was asked to be seen because of constipation despite laxatives. On previous admission he was advised follow up but never scheduled an appointment. He denies, weight loss, rectal bleeding abdominal pain. - Past Medical History Cardio/Vascular: Yes: AFIB, CAD (Non-obstructive), HTN, Hyperlipdemia Pulmonary: Yes: COPD, Sleep Apnea Gastrointestinal: Yes: GERD Endocrine: Yes: Diabetes Mellitus - Past Surgical History Past Surgical History: Yes: Tonsillectomy - Alcohol/Substance Use Hx Alcohol Use: No - Smoking History Smoking history: Current some day smoker Have you smoked in the past 12 months: Yes Aproximately how many cigarettes per day: 3 If you are a former smoker, when did you quit?: On Chantix - Social History Usual Living Arrangement: Alone (alone in basement apartment with 7 steps to enter, previously Independent in ADLs without Assistive Device and has 2 sister nearby who assist as needed) Home Medications - Allergies Allergies/Adverse Reactions: Allergies Allergy/AdvReac Type Severity Reaction Status Date / Time No Known Allergies Allergy Verified 04/09/18 12:03 - Home Medications Home Medications: Ambulatory Orders Bupropion HCl [Wellbutrin Xl -] 150 mg PO DAILY 07/28/13 Ranolazine [Ranexa -] 1,000 mg PO BID 07/28/13 Rivaroxaban [Xarelto -] 20 mg PO HS 07/28/13 Sotalol HCl [Sotalol] 80 mg PO TID 07/28/13 Tamsulosin HCl 0.4 mg PO HS 07/28/13 Potassium Chloride [K-Dur] 20 meq PO DAILY 03/15/15 Insulin Lispro Protamin/Lispro [Humalog Mix 50-50 Kwikpen] 15 unit SQ TID Ezetimibe 10 mg PO HS 04/29/17 Furosemide [Lasix -] 40 mg PO DAILY 04/29/17 Omeprazole 40 mg PO DAILY 04/29/17 Tiotropium [place] [Spiriva] 1 inh PO DAILY 02/16/18 Atorvastatin Ca [Lipitor] 80 mg PO DAILY 04/09/18 Family Disease History - Family Disease History Family Disease History: CA: Father (gastric cancer) Physical Exam-GI Vital Signs: Vital Signs Temperature 97.9 F 04/10/18 17:00 Pulse Rate 60 04/10/18 17:00 Respiratory Rate 20 04/10/18 17:00 Blood Pressure 143/79 04/10/18 17:00 O2 Sat by Pulse Oximetry (%) 98 04/10/18 00:01 Constitutional: Yes: Obese HENT: Yes: Atraumatic Neck: Yes: Supple Cardiovascular: Yes: Regular Rate and Rhythm Respiratory: Yes: CTA Bilaterally ...Palpate: Yes: Firm/Rigid, Soft. No: Guarding, Hepatomegaly, Mass, Pulsatile Mass, Splenomegaly Labs: CBC, BMP 04/10/18 05:30 04/10/18 05:30 INR, PTT INR 1.77 (0.83-1.09) H 04/09/18 12:49 Problem List - Problems (1) Constipation Assessment/Plan: R> citroma x1 today then maintain on Miralax 34 grams tid again patient was reminded to follow up for outpatient colonoscopy Code(s): K59.00 - CONSTIPATION, UNSPECIFIED
[2018-04-10] MEDS ORDERED: INSULIN (NOVOLOG) ASPART 100 UNITS/ML 10ML VIAL ONE (21:49)
[2018-04-10] MEDS: EZETIMIBE 10 MG TABLET (FP) PO SCH (21:52)
[2018-04-10] MEDS: ATORVASTATIN CA 40 MG TABLET (FP) PO SCH (21:52)
[2018-04-10] MEDS: DOCUSATE SODIUM 100 MG CAPSULE (FP) PO SCH (21:53)
[2018-04-10] MEDS ORDERED: RANITIDINE HCL 150 MG TABLET (FP) PO ONE (22:25)
[2018-04-11 06:16] VITALS: TEMP 97.6
[2018-04-11] MEDS: INSULIN SLIDING SCALE (NOVOLOG) 1 VIAL SQ SCH (06:55)
[2018-04-11] MEDS: INSULIN (LEVEMIR) 100 UNITS/ML UNITS SQ SCH (06:55)
[2018-04-11] MEDS ORDERED: SENNOSIDES 8.6MG TABLET (FP) PO PRN (07:23)
[2018-04-11 08:20] VITALS: BP 147/84; PULSE 62
--- NOTE | 2018-04-11 09:12 | CON.NEURO ---
Consult - History of Present Illness History of Present Illness: 62yo m with PMH of Afib (on Xarelto), CHF, CAD, PVD, COPD, DM, HTN, HLD, hypothyroidism sent to ED by package sealer for evaluation of pre-syncope and leg weakness. Pt says he has been feeling weak in his legs for a couple months now and they have always been giving out. Pt said he was at package sealer office when he started feeling lightheaded, clammy, SOB and felt weak in his legs and almost fell but was able to sit in a chair. He did not lose consciousness or hit his head. Pt says he has neuropathy in his hands and legs which cause him to have "shakes". He is denying chest pain, cough, fevers, chills, headache, abdominal pain, n/v/d, urinary symptoms, recent injuries. He denies numbness in the groin, loss of bowel/bladder. Does not use oxygen at home. HX of low back pain, though no acute exacerbations HX of neuropathy- suagrs not fully controlled +smoker CT HD : subacute chronic sinusitis - Past Medical History Cardio/Vascular: Yes: AFIB, CAD (Non-obstructive), HTN, Hyperlipdemia Pulmonary: Yes: COPD, Sleep Apnea Gastrointestinal: Yes: GERD Endocrine: Yes: Diabetes Mellitus - Past Surgical History Past Surgical History: Yes: Tonsillectomy - Alcohol/Substance Use Hx Alcohol Use: No - Smoking History Smoking history: Current some day smoker Have you smoked in the past 12 months: Yes Aproximately how many cigarettes per day: 3 If you are a former smoker, when did you quit?: On Chantix - Social History Usual Living Arrangement: Alone (alone in basement apartment with 7 steps to enter, previously Independent in ADLs without Assistive Device and has 2 sister nearby who assist as needed) Home Medications - Allergies Allergies/Adverse Reactions: Allergies Allergy/AdvReac Type Severity Reaction Status Date / Time No Known Allergies Allergy Verified 04/09/18 12:03 - Home Medications Home Medications: Ambulatory Orders Bupropion HCl [Wellbutrin Xl -] 150 mg PO DAILY 07/28/13 Ranolazine [Ranexa -] 1,000 mg PO BID 07/28/13 Rivaroxaban [Xarelto -] 20 mg PO HS 07/28/13 Sotalol HCl [Sotalol] 80 mg PO TID 07/28/13 Tamsulosin HCl 0.4 mg PO HS 07/28/13 Potassium Chloride [K-Dur] 20 meq PO DAILY 03/15/15 Insulin Lispro Protamin/Lispro [Humalog Mix 50-50 Kwikpen] 15 unit SQ TID Ezetimibe 10 mg PO HS 04/29/17 Furosemide [Lasix -] 40 mg PO DAILY 04/29/17 Omeprazole 40 mg PO DAILY 04/29/17 Tiotropium [place] [Spiriva] 1 inh PO DAILY 02/16/18 Atorvastatin Ca [Lipitor] 80 mg PO DAILY 04/09/18 Family Disease History - Family Disease History Family Disease History: CA: Father (gastric cancer) Physical Exam-Neuro Vital Signs: Vital Signs Temperature 97.6 F 04/11/18 06:00 Pulse Rate 62 04/11/18 08:19 Respiratory Rate 20 04/11/18 08:19 Blood Pressure 147/84 04/11/18 08:19 O2 Sat by Pulse Oximetry (%) 98 04/10/18 20:51 Labs: CBC, BMP 04/10/18 05:30 04/10/18 05:30 INR, PTT INR 1.77 (0.83-1.09) H 04/09/18 12:49 - Neuro Exam Level Of Consciousness: Yes: Alert (Awake, EOMI, no facila, motor 5/5, reflexes absnet in LE , no sensory level ) Imaging - Results Cat Scan: Report Reviewed, Image Reviewed Problem List - Problems (1) Gait abnormality Code(s): R26.9 - UNSPECIFIED ABNORMALITIES OF GAIT AND MOBILITY (2) Pre-syncope Code(s): R55 - SYNCOPE AND COLLAPSE (3) Atrial fibrillation Code(s): I48.91 - UNSPECIFIED ATRIAL FIBRILLATION Qualifiers: Atrial fibrillation type: paroxysmal Qualified Code(s): I48.0 - Paroxysmal atrial fibrillation (4) Swelling of lower extremity Code(s): M79.89 - OTHER SPECIFIED SOFT TISSUE DISORDERS Assessment/Plan 62yo m with PMH of Afib (on Xarelto), CHF, CAD, PVD, COPD, DM, HTN, HLD, hypothyroidism sent to ED by package sealer for evaluation of pre-syncope and leg weakness. Pt says he has been feeling weak in his legs for a couple months now and they have always been giving out. Pt said he was at package sealer office when he started feeling lightheaded, clammy, SOB and felt weak in his legs and almost fell but was able to sit in a chair. He did not lose consciousness or hit his head. Pt says he has neuropathy in his hands and legs which cause him to have "shakes". He is denying chest pain, cough, fevers, chills, headache, abdominal pain, n/v/d, urinary symptoms, recent injuries. He denies numbness in the groin, loss of bowel/bladder. Does not use oxygen at home. HX of low back pain, though no acute exacerbations HX of neuropathy- suagrs not fully controlled +smoker CT HD : subacute chronic sinusitis AP : transient gait Disorder-likely multifactorial given underlying DM neuropathy and LS radiculopathy no signs of stroke, myelopathy, acute radiculopathy or acute neurological event back to baseline can see as outpt Thanks DR SMITH [phone]
--- NOTE | 2018-04-11 09:17 | PN ---
Progress Note, Physician Chief Complaint: Events noted Feels better this morning History of Present Illness: Patient was seen and examined. Awake and alert. Chart was reviewed Denies chest pain, SOB or palpitations - Current Medication List Current Medications: Active Medications Acetaminophen (Tylenol -) 650 mg PO Q6H PRN PRN Reason: PAIN LEVEL 1-5 OR FEVER Last Admin: 04/10/18 07:18 Dose: 650 mg Atorvastatin Calcium (Lipitor -) 40 mg PO HS [facility] Last Admin: 04/10/18 21:52 Dose: 40 mg Bupropion HCl (Wellbutrin Xl -) 150 mg PO DAILY [facility] Last Admin: 04/10/18 14:38 Dose: Not Given Ezetimibe (Zetia -) 10 mg PO HS [facility] Last Admin: 04/10/18 21:52 Dose: 10 mg Fluticasone Propionate (Flonase -) 2 spray NS DAILY@0800 [facility] Last Admin: 04/10/18 14:36 Dose: Not Given Insulin Aspart (Novolog Vial Sliding Scale -) 1 vial SQ [facility]; Protocol Last Admin: 04/11/18 06:55 Dose: 4 units Insulin Detemir (Levemir Vial) 30 units SQ 0700,2200 [facility] Last Admin: 04/11/18 06:55 Dose: 30 units Loratadine (Claritin -) 10 mg PO DAILY [facility] Last Admin: 04/10/18 14:37 Dose: 10 mg Pantoprazole Sodium (Protonix -) 20 mg PO DAILY@0800 [facility] Last Admin: 04/10/18 11:30 Dose: 20 mg Polyethylene Glycol (Miralax (For Daily Use) -) 17 gm PO BID [facility] Ranolazine (Ranexa -) 500 mg PO BID [facility] Last Admin: 04/10/18 21:52 Dose: 500 mg Rivaroxaban (Xarelto -) 20 mg PO DAILY@1800 [facility] Last Admin: 04/10/18 17:33 Dose: 20 mg Senna (Senna -) 2 tab PO HS PRN PRN Reason: CONSTIPATION Sodium Chloride ([place]al [place] -) 2 spray NS TID PRN PRN Reason: NASAL CONGESTION Sotalol HCl (Betapace -) 80 mg PO BID [facility] Last Admin: 04/10/18 21:53 Dose: 80 mg Tamsulosin HCl (Flomax -) 0.4 mg PO DAILY@0800 [facility] Last Admin: 11/10/18 11:29 Dose: 0.4 mg Tiotropium [place] (Spiriva Respimat) 2 puff IH DAILY [facility] Last Admin: 04/10/18 14:38 Dose: Not Given Valsartan (Diovan -) 40 mg PO DAILY [facility] Last Admin: 04/10/18 11:29 Dose: 40 mg - Objective Vital Signs: Vital Signs Temperature 97.6 F 04/11/18 06:00 Pulse Rate 62 04/11/18 08:19 Respiratory Rate 20 04/11/18 08:19 Blood Pressure 147/84 04/11/18 08:19 O2 Sat by Pulse Oximetry (%) 98 04/10/18 20:51 Constitutional: Yes: Well Nourished Eyes: Yes: PERRL HENT: Yes: Atraumatic Neck: Yes: Supple Cardiovascular: Yes: Regular Rate and Rhythm, S1, S2 Respiratory: Yes: CTA Bilaterally Gastrointestinal: Yes: Normal Bowel Sounds, Soft. No: Tenderness Edema: No Additional Findings/Remarks: - Review of Systems Constitutional: reports: Weakness. denies: Chills, Fever Cardiovascular: denies: Palpitations, Shortness of Breath. denies: Chest Pain Respiratory: denies: SOB, SOB on Exertion. denies: Cough, Hemoptysis, Orthopnea , PND Gastrointestinal: denies: Abdominal Pain, Constipation, Diarrhea, Melena, Nausea , Rectal Bleeding, Vomiting Genitourinary: denies: Dysuria, Hematuria Musculoskeletal: denies: Joint Pain Neurological: reports: Weakness. denies: Dizziness, denies: Headache, Seizure, Syncope Labs: CBC, BMP 04/10/18 05:30 04/10/18 05:30 Problem List - Problems (1) Pre-syncope Code(s): R55 - SYNCOPE AND COLLAPSE (2) Atrial fibrillation Code(s): I48.91 - UNSPECIFIED ATRIAL FIBRILLATION Qualifiers: Atrial fibrillation type: paroxysmal Qualified Code(s): I48.0 - Paroxysmal atrial fibrillation (3) BPH (benign prostatic hyperplasia) Code(s): N40.0 - BENIGN PROSTATIC HYPERPLASIA WITHOUT LOWER URINRY TRACT SYMP (4) CAD (coronary artery disease) Code(s): I25.10 - ATHSCL HEART DISEASE OF [place] CORONARY ARTERY W/O ANG PCTRS Qualifiers: Coronary Disease-Associated Artery/Lesion type: pala artery [place] vs. transplanted heart: pala heart Associated angina: with stable angina Qualified Code(s): I25.118 - Atherosclerotic heart disease of [place] coronary artery with other forms of angina pectoris (5) Diabetes mellitus, insulin dependent (IDDM), uncontrolled Code(s): E10.65 - TYPE 1 DIABETES MELLITUS WITH HYPERGLYCEMIA Qualifiers: Coma presence: without coma (6) Diastolic dysfunction without heart failure Code(s): I51.9 - HEART DISEASE, UNSPECIFIED (7) HTN (hypertension) Code(s): I10 - ESSENTIAL (PRIMARY) HYPERTENSION Qualifiers: Hypertension type: essential hypertension Qualified Code(s): I10 - Essential (primary) hypertension (8) Hypercholesterolemia Code(s): E78.0 - PURE HYPERCHOLESTEROLEMIA * DO NOT USE * (9) Sleep apnea Code(s): G47.30 - SLEEP APNEA, UNSPECIFIED Qualifiers: Sleep apnea type: obstructive Qualified Code(s): G47.33 - Obstructive sleep apnea (adult) (pediatric) (10) Streptococcus bovis infection Code(s): A49.1 - STREPTOCOCCAL INFECTION, UNSPECIFIED SITE Assessment/Plan 1. Near syncope 2. PAF on NOAC 3. CAD (non-obstructive), angina 4. HTN 5. Hypercholesterolemia 6. Type 2 DM with severe diabetic neuropathy 7. OSAS on CPAP 8. Diastolic dysfunction without LV failure 9. Palpitations 10. Left rib fracture post fall 11. Cervical and lumbar spondylosis 12. History of Strep bovis bacteremia PLAN: 1. Continue Sotalol 80 BID, Xarelto 20 QD, Ranexa 500 BID, Lipitor 80 QD, Zetia 10 QD and Diovan 40 QD with uptitration as tolerated. 2. Consider upright tilt table testing as outpatient if symptoms continue 3. Plan for outpatient colonoscopy 4. Neurology input to follow Further plans are to follow. Discharge planning. Patient is stable to be discharged cardiac standpoint Harsha High MD
[2018-04-11] MEDS ORDERED: PT OWN MED DRAWER 7, Y5N ONE (09:46)
[2018-04-11] MEDS ORDERED: POLYETHYLENE GLYCOL 3350 119 GM BTL PO SCH (10:00)
--- NOTE | 2018-04-11 10:06 | PN ---
Progress Note, Physician Chief Complaint: PreSyncope Weakness History of Present Illness: NAD +orthostatic BP Seen by Cardiology Neuro consult EMG and PT ordered as recommended by Physiatry [facility] and [facility]quie being held for now D/C from cardiac standpoint - Current Medication List Current Medications: Active Medications Acetaminophen (Tylenol -) 650 mg PO Q6H PRN PRN Reason: PAIN LEVEL 1-5 OR FEVER Last Admin: 04/10/18 07:18 Dose: 650 mg Atorvastatin Calcium (Lipitor -) 40 mg PO HS [facility] Last Admin: 04/10/18 21:52 Dose: 40 mg Bupropion HCl (Wellbutrin Xl -) 150 mg PO DAILY [facility] Last Admin: 04/10/18 14:38 Dose: Not Given Ezetimibe (Zetia -) 10 mg PO [facility] Last Admin: 04/10/18 21:52 Dose: 10 mg Fluticasone Propionate (Flonase -) 2 spray NS DAILY@0800 [facility] Last Admin: 04/10/18 14:36 Dose: Not Given Insulin Aspart (Novolog Vial Sliding Scale -) 1 vial SQ [facility]; Protocol Last Admin: 04/11/18 06:55 Dose: 4 units Insulin Detemir (Levemir Vial) 30 units SQ 0700,2200 [facility] Last Admin: 04/11/18 06:55 Dose: 30 units Loratadine (Claritin -) 10 mg PO DAILY [facility] Last Admin: 04/10/18 14:37 Dose: 10 mg Pantoprazole Sodium (Protonix -) 20 mg PO DAILY@0800 [facility] Last Admin: 04/10/18 11:30 Dose: 20 mg Polyethylene Glycol (Miralax (For Daily Use) -) 17 gm PO BID [facility] Ranolazine (Ranexa -) 500 mg PO BID [facility] Last Admin: 04/10/18 21:52 Dose: 500 mg Rivaroxaban (Xarelto -) 20 mg PO DAILY@1800 [facility] Last Admin: 04/10/18 17:33 Dose: 20 mg Senna (Senna -) 2 tab PO HS PRN PRN Reason: CONSTIPATION Sodium Chloride ([place] Nasal [place] -) 2 spray NS TID PRN PRN Reason: NASAL CONGESTION Sotalol HCl (Betapace -) 80 mg PO BID [facility] Last Admin: 04/10/18 21:53 Dose: 80 mg Tamsulosin HCl (Flomax -) 0.4 mg PO DAILY@0800 [facility] Last Admin: 04/10/18 11:29 Dose: 0.4 mg Tiotropium [place] (Spiriva Respimat) 2 puff IH DAILY [facility] Last Admin: 04/10/18 14:38 Dose: Not Given Valsartan (Diovan -) 40 mg PO DAILY [facility] Last Admin: 04/10/18 11:29 Dose: 40 mg - Objective Vital Signs: Vital Signs Temperature 97.6 F 04/11/18 06:00 Pulse Rate 62 04/11/18 08:19 Respiratory Rate 20 04/11/18 08:19 Blood Pressure 147/84 04/11/18 08:19 O2 Sat by Pulse Oximetry (%) 98 04/10/18 20:51 Constitutional: Yes: Well Nourished, No Distress, Calm Cardiovascular: Yes: Regular Rate and Rhythm Respiratory: Yes: Regular Gastrointestinal: Yes: Normal Bowel Sounds, Soft, Abdomen, Obese Musculoskeletal: Yes: Muscle Weakness Edema: No Peripheral Pulses WNL: Yes Neurological: Yes: Alert, Oriented Psychiatric: Yes: Alert, Oriented Labs: CBC, BMP 04/10/18 05:30 04/10/18 05:30 INR, PTT INR 1.77 (0.83-1.09) H 04/09/18 12:49 Problem List - Problems (1) Pre-syncope Assessment/Plan: -Echo-unremarkable -Tele monitoring -Cardiology on board -Neurology consult -Physical therapy -EMG -CT head shows chronic sinusitis Code(s): R55 - SYNCOPE AND COLLAPSE (2) Atrial fibrillation Assessment/Plan: -Chronic -Rate controlled -D/C Tele monitoring -Cardiology consult -On [place] Code(s): I48.91 - UNSPECIFIED ATRIAL FIBRILLATION Qualifiers: Atrial fibrillation type: paroxysmal Qualified Code(s): I48.0 - Paroxysmal atrial fibrillation (3) Diabetes Assessment/Plan: -A1c at 9.1 -BGM AC HS -Diabetic low sodium diet -RD consult -Endocrine consult -Insulin: novolog sliding scale and levemir 30 U BID Code(s): E11.9 - TYPE 2 DIABETES MELLITUS WITHOUT COMPLICATIONS Qualifiers: Diabetes mellitus type: type 2 Diabetes mellitus ferry terminal agent insulin use: without chcf use Diabetes mellitus complication status: with neurologic complications Diabetes mellitus complication detail: with unspecified neuropathy Qualified Code(s): E11.40 - Type 2 diabetes mellitus with diabetic neuropathy, unspecified (4) Chronic sinusitis Assessment/Plan: -Started on Flonase -Add Claritin Code(s): J32.9 - CHRONIC SINUSITIS, UNSPECIFIED Assessment/Plan see problem list Physical therapy
[2018-04-11] MEDS: TAMSULOSIN HCL 0.4 MG CAP PO SCH (11:20)
[2018-04-11] MEDS: VALSARTAN 40 MG TABLET (FP) PO SCH (11:21)
[2018-04-11] MEDS: PANTOPRAZOLE 20 MG TABLET (FP) PO SCH (11:21)
[2018-04-11] MEDS: LORATADINE 10 MG TABLET PO SCH (11:21)
[2018-04-11] MEDS: SOTALOL HCL 80 MG TABLET (FP) PO SCH (11:21)
[2018-04-11] MEDS: ACETAMINOPHEN 325 MG TABLET (FP) PO PRN (11:21)
[2018-04-11] MEDS: RANOLAZINE E.R. 500 MG TABLET (FP) PO SCH (11:21)
[2018-04-11] MEDS: FLUTICASONE PROP 0.05% 16 GM NASAL SPRAY NS SCH (11:25)
[2018-04-11] MEDS: TIOTROPIUM BROMIDE 2.5 MCG (SPIRIVA) RESPIMAT INHALER IH SCH (11:26)
--- NOTE | 2018-04-11 19:07 | EKG ---
Test Reason : Blood Pressure : / mmHG Vent. Rate : 058 BPM Atrial Rate : 058 BPM P-R Int : 172 ms QRS Dur : 128 ms QT Int : 466 ms P-R-T Axes : -17 058 018 degrees QTc Int : 457 ms SINUS BRADYCARDIA NON-SPECIFIC INTRA-VENTRICULAR CONDUCTION BLOCK ABNORMAL ECG WHEN COMPARED WITH ECG OF 09-APR-2018 11:56, NO SIGNIFICANT CHANGE WAS FOUND Confirmed by KEYSHA JUAN MD ([id number]) on 04/11/2018 7:06:57 PM Referred By: Confirmed By:KEYSHA JUAN MD
== END 2018-04-11 12:29 | disposition home or self-care (01) | DRG 312 ==
LOC: JER 11:34 → JERBED 14:12 → OBSVTOIN 14:44 → J4W 22:45
PROVIDERS: ADMIT Family Medicine; ATTEND Family Medicine
DX: R55 Syncope and collapse (principal); J44.9 Chronic obstructive pulmonary disease, unspecified; I25.10 Atherosclerotic heart disease of native coronary artery without angina pectoris; I11.0 Hypertensive heart disease with heart failure; I50.9 Heart failure, unspecified; E78.5 Hyperlipidemia, unspecified; I48.91 Unspecified atrial fibrillation; Z79.01 Long term (current) use of anticoagulants; E11.51 Type 2 diabetes mellitus with diabetic peripheral angiopathy without gangrene; E03.9 Hypothyroidism, unspecified; Z79.4 Long term (current) use of insulin; N40.0 Benign prostatic hyperplasia without lower urinary tract symptoms; K59.00 Constipation, unspecified; G47.33 Obstructive sleep apnea (adult) (pediatric); M47.896 Other spondylosis, lumbar region; E11.65 Type 2 diabetes mellitus with hyperglycemia; E66.01 Morbid (severe) obesity due to excess calories; I48.0 Paroxysmal atrial fibrillation; J32.9 Chronic sinusitis, unspecified; F32.9 Major depressive disorder, single episode, unspecified; R26.9 Unspecified abnormalities of gait and mobility; M54.17 Radiculopathy, lumbosacral region; Z68.35 Body mass index [BMI] 35.0-35.9, adult
CPT/HCPCS: 36415; 70450-TC; 70486-TC; 71045-TC-FY; 74018-TC-FY; 80053; 80061; 81003; 81015; 82550; 82962; 83036; 83721; 83735; 83880; 84100; 84443; 84484; 85025; 85027; 85610; 90732; 93005; 93010; 93306-TC; 99284-25; G0009; G0378

== ENCOUNTER 2018-05-21 19:50 | Emergency (ER) | payer OTHER ==
[2018-05-21 19:58] VITALS: BP 156/78; PULSE 84; TEMP 97.6; BMI 35.1
--- NOTE | 2018-05-21 20:10 | PDOC ---
History of Present Illness - History of Present Illness Initial Comments: This patient is a 62 year old male with a PMHx of neuropathy, Afib (on Xarelto) , CHF, CAD, PVD, COPD, DM, HTN, HLD, and hypothyroidism who presents to the ED with right 2nd toe lesion. Patient states that today he noticed that his toe had a brown circular spot that looked like ringworm which he has previously had on his arms recently. He called his doctors office who referred him to the ER to r/o ulcer since the pt is diabetic and has neuropathy. Has an appt with his inspector raw quartz on Thursday, . Allergies: NKDA Social Hx: Current everyday smoker (10 cigs/day) PMD: Guerrero Cavazos Chiller Operator: Harsha High Vascular surgeon: Dr. Fonseca Customer Consulting Manager: Dr. Hubbard 05/21/18 20:38 <Britany Thompson - Last Filed: 05/21/18 20:38> <Sima García - Last Filed: 05/22/18 01:37> - General Chief Complaint: Redness To Affected Area Stated Complaint: REDDENED AREA TO TRUDI OF RIGHT 2ND TOE Time Seen by Provider: 05/21/18 19:54 Past History <Britany Thompson - Last Filed: 05/21/18 20:38> - Past Medical History Anemia: No Asthma: No Cancer: No Cardiac Disorders: Yes (A-Fib, PVC) CVA: No COPD: Yes CHF: No Dementia: No Diabetes: Yes GI Disorders: Yes (gasritis) Disorders: No HTN: Yes Hypercholesterolemia: Yes Liver Disease: No Seizures: No Thyroid Disease: Yes (hypothyroid) - Surgical History Abdominal Surgery: No Appendectomy: No Cardiac Surgery: Yes (Angio-plasty) Cholecystectomy: No Lung Surgery: No Neurologic Surgery: No Orthopedic Surgery: Yes (both feet bone removal) - Immunization History Immunization Up to Date: Yes - Suicide/Smoking/Psychosocial Hx Smoking Status: No Smoking History: Current every day smoker Have you smoked in the past 12 months: Yes Number of Cigarettes Smoked Daily: 10 If you are a former smoker, when did you quit?: On [employer] Information on smoking cessation initiated: Yes 'Breaking Loose' booklet given: 04/28/17 Hx Alcohol Use: Yes (OCCAS.) Drug/Substance Use Hx: No Substance Use Type: None Hx Substance Use Treatment: No <Keon Garcíamaria luz Schuster - Last Filed: 05/22/18 01:37> - Past Medical History Allergies/Adverse Reactions: Allergies Allergy/AdvReac Type Severity Reaction Status Date / Time No Known Allergies Allergy Verified 05/21/18 19:52 Home Medications: Ambulatory Orders Bupropion HCl [Wellbutrin Xl -] 150 mg PO DAILY 07/28/13 Rivaroxaban [Xarelto -] 20 mg PO HS 07/28/13 Tamsulosin HCl 0.4 mg PO HS 07/28/13 Insulin Lispro Protamin/Lispro [Humalog Mix 50-50 Kwikpen] 15 unit SQ TID Ezetimibe 10 mg PO HS 04/29/17 Omeprazole 40 mg PO DAILY 04/29/17 Tiotropium [place] [Spiriva] 1 inh PO DAILY 02/16/18 Atorvastatin Ca [Lipitor] 80 mg PO DAILY 04/09/18 Acetaminophen [Tylenol .Regular Strength -] 650 mg PO Q6H PRN tablet 04/11/18 Atorvastatin Ca [Lipitor] 40 mg PO HS tablet 04/11/18 Bupropion HCl [Wellbutrin Xl -] 150 mg PO DAILY tab.sr.24h 04/11/18 Docusate Sodium [Colace -] 300 mg PO HS #30 capsule 04/11/18 Ezetimibe [Zetia -] 10 mg PO HS tablet 04/11/18 Fluticasone Prop 0.05% Nasal [Flonase -] 2 spray NS DAILY@0800 #1 inh 04/11/18 Loratadine [Claritin -] 10 mg PO DAILY #30 tablet 04/11/18 Polyethylene Glycol 3350 [Miralax 119 gm Btl -] 17 gm PO DAILY #1 bottle Ranolazine [Ranexa -] 500 mg PO BID #60 tab 04/11/18 Rivaroxaban [Xarelto -] 20 mg PO DAILY@1800 tablet 04/11/18 Sennosides [Senna -] 2 tab PO HS PRN #60 tablet 04/11/18 Sitagliptin Phosphate [Januvia -] 100 mg PO DAILY@0700 #30 ud 04/11/18 Sotalol HCl [Betapace -] 80 mg PO BID tablet 04/11/18 Tamsulosin HCl [Flomax -] 0.4 mg PO DAILY@0800 cap.er.24h 04/11/18 Tiotropium [place] [Spiriva Respimat] 2 puff IH DAILY inhaler 04/11/18 Valsartan [Diovan] 40 mg PO DAILY #30 tablet 04/11/18 Amox-Tr/K Cl [Augmentin - 875Mg Tablet] 1 tab PO BID #14 tablet 05/21/18 Ciclopirox Olamine [Ciclodan] 1 gm TP BID #1 tube 05/21/18 Review of Systems - Review of Systems Comments:: GENERAL/CONSTITUTIONAL: No fever or chills. No weakness. HEAD, EYES, EARS, NOSE AND THROAT: No change in vision. No ear pain or discharge. No sore throat. MUSCULOSKELETAL: No joint or muscle swelling or pain. No neck or back pain. SKIN: Rt 2nd toe round lesion. NEUROLOGIC: No headache, vertigo, loss of consciousness, or change in strength/ sensation. ENDOCRINE: No increased thirst. No abnormal weight change. ALLERGIC/IMMUNOLOGIC: No hives or skin allergy. 05/21/18 20:39 <Britany Thompson - Last Filed: 05/21/18 20:38> *Physical Exam - Vital Signs Last Vital Signs Temp Pulse Resp BP Pulse Ox 97.6 F 84 15 156/78 97 05/21/18 19:52 05/21/18 19:52 05/21/18 19:52 05/21/18 19:52 05/21/18 19:52 - Physical Exam Comments: GENERAL: Awake, alert, and fully oriented, in no acute distress EXTREMITIES: Normal range of motion, no edema. No clubbing or cyanosis. No cords, erythema, or tenderness NEUROLOGICAL: Cranial nerves II through XII grossly intact. Normal speech, normal gait SKIN: 1 cm diameter round, slightly raised, slightly erythematous, scaly surface , lesion at the base of the 2nd toe dorsal aspect, nontender, non fluctuant no skin break evident. No lymphangitic streaking, no surrounding edema or erythema. Remainder of the foot is nontender, edematous, cool, good capillary refill. 05/21/18 20:38 <Britany Thompson - Last Filed: 05/21/18 20:38> - Vital Signs Last Vital Signs Temp Pulse Resp BP Pulse Ox 97.6 F 84 15 156/78 97 05/21/18 19:52 05/21/18 19:52 05/21/18 19:52 05/21/18 19:52 05/21/18 19:52 <Sima García - Last Filed: 05/22/18 01:37> Moderate Sedation - Procedure Monitoring Vital Signs: Procedure Monitoring Vital Signs Temperature 97.6 F 05/21/18 19:52 Pulse Rate 84 05/21/18 19:52 Respiratory Rate 15 05/21/18 19:52 Blood Pressure 156/78 05/21/18 19:52 O2 Sat by Pulse Oximetry (%) 97 05/21/18 19:52 <Britany Thompson - Last Filed: 05/21/18 20:38> - Procedure Monitoring Vital Signs: Procedure Monitoring Vital Signs Temperature 97.6 F 05/21/18 19:52 Pulse Rate 84 05/21/18 19:52 Respiratory Rate 15 05/21/18 19:52 Blood Pressure 156/78 05/21/18 19:52 O2 Sat by Pulse Oximetry (%) 97 05/21/18 19:52 <Sima García - Last Filed: 05/22/18 01:37> Medical Decision Making - Medical Decision Making Documentation has been prepared under my direction and personally reviewed by me in its entirety. I attest that this documented accurately reflects all work, treatment, procedures and medical decision making performed by me. As noted above, this 62-year-old man with multiple medical problems, including IDDM was referred here by his PMD for evaluation of an area of his right foot. The patient had noted a new erythematous area at the base of his second right toe. This area was neither painful nor pruritic. He had no recall of trauma to the area. No previous history of diabetic foot ulcer. Exam as noted: 1 cm diameter lesion appears to be primarily a dermatologic lesion, probably tinea pedis. There was no open area of the lesion. There was no surrounding inflammation/fluctuance/discharge. Patient will be discharged with antifungal cream to be used twice a day. Since he is at such high risk for rapidly progressive cellulitis/foot ulcer, Augmentin 875/125 twice a day for one week prescription will be sent to the pharmacy, in case this is an atypical presentation of early cellulitis.. The patient understands that he needs to come back to the emergency room if he has any increase in inflammation/edema, especially while taking oral antibiotics. He has follow-up scheduled with his inspector raw quartz on 05/26. <Sima García - Last Filed: 05/22/18 01:37> *DC/Admit/Observation/Transfer - Attestations Scribe Attestion: 05/21/18 20:40 Documentation prepared by Britany Thompson, acting as medical technologist for Sima García MD. <Britany Thompson - Last Filed: 05/21/18 20:38> <Sima García - Last Filed: 05/22/18 01:37> Diagnosis at time of Disposition: Tinea pedis of right foot - Discharge Dispostion Disposition: HOME Condition at time of disposition: Stable - Prescriptions Prescriptions: Amox-Tr/K Cl [Augmentin - 875Mg Tablet] 1 tab PO BID #14 tablet Ciclopirox Olamine [Ciclodan] 1 gm TP BID #1 tube - Referrals Referrals: Dirk Garza MD [Primary Care Provider] - - Patient Instructions Printed Discharge Instructions: DI for Athlete's Foot Additional Instructions: Ciclodan cream twice a day to area at base of second toe Augmentin 875/125 twice a day for one week; take with food Return to ER immediately if area becomes more swollen/red/painful or you develop fever Follow-up with your inspector raw quartz on May 26 as scheduled Follow-up with in 10 days as scheduled - Post Discharge Activity
== END 2018-05-21 20:41 | disposition home or self-care (01) ==
LOC: FER 19:50
DX: B35.3 Tinea pedis (principal); E11.9 Type 2 diabetes mellitus without complications; I48.91 Unspecified atrial fibrillation; I50.9 Heart failure, unspecified; J44.9 Chronic obstructive pulmonary disease, unspecified; I10 Essential (primary) hypertension; E78.5 Hyperlipidemia, unspecified; E03.9 Hypothyroidism, unspecified; F17.210 Nicotine dependence, cigarettes, uncomplicated; Z79.01 Long term (current) use of anticoagulants
CPT/HCPCS: 99281-25

== ENCOUNTER 2018-07-02 20:21 | Inpatient (IN) | payer OTHER ==
--- NOTE | 2018-07-02 21:44 | PDOC ---
History of Present Illness - History of Present Illness Initial Comments: The patient is a 62 year old male, with a significant PMH of Afib (on Xarelto), CHF, CAD, PVD, COPD, DM, HTN, HLD, hypothyroid, and neuropathy, who presents to the emergency department today complaining of redness, swelling, and pain to his right inner thigh to his right knee for 4 days. Patient notes that he had a laser vein ablation on Thursday (5 days ago), and the day following his procedure he began experiencing redness, swelling, and pain, which has been progressively worsening. He notes that the pain/redness/swelling is most prominent on the posterior aspect of his knee and radiates up into his right inner thigh. Patient states that the pain is exacerbated with bending the knee and when walking. Patient reports having the same procedure done on his left lower extremity ~2 weeks ago, and did not have any issues following the procedure. Patient denies history of being admitted for a skin infection in the past. The patient denies chest pain, shortness of breath, headache and dizziness. Denies fever, chills, nausea, vomit, diarrhea and constipation. Denies dysuria, frequency, urgency and hematuria. Allergies: NKA Past surgical history: Social history: Current smoker (10 cigarettes per day) PCP: Dr. Dirk Garza Tax Lawyer: Dr. Harsha High Vascular surgeon: Dr. Jez Fonesca 07/02/18 23:41 <Tova Pickard - Last Filed: 07/02/18 23:35> <Sima García - Last Filed: 07/03/18 02:52> - General Chief Complaint: Pain, Acute Stated Complaint: RT LEG PAIN Time Seen by Provider: 07/02/18 20:39 Past History <Tova Pickard - Last Filed: 07/02/18 23:35> - Past Medical History Anemia: No Asthma: No Cancer: No Cardiac Disorders: Yes (A-Fib, PVC) CVA: No COPD: Yes CHF: No Dementia: No Diabetes: Yes GI Disorders: Yes (gasritis) Disorders: No HTN: Yes Hypercholesterolemia: Yes Liver Disease: No Seizures: No Thyroid Disease: Yes (hypothyroid) - Surgical History Abdominal Surgery: No Appendectomy: No Cardiac Surgery: Yes (Angio-plasty) Cholecystectomy: No Lung Surgery: No Neurologic Surgery: No Orthopedic Surgery: Yes (both feet bone removal) - Immunization History Immunization Up to Date: Yes - Suicide/Smoking/Psychosocial Hx Smoking Status: No Smoking History: Current every day smoker Have you smoked in the past 12 months: Yes Number of Cigarettes Smoked Daily: 10 If you are a former smoker, when did you quit?: On [employer] Information on smoking cessation initiated: Yes 'Breaking Loose' booklet given: 04/28/17 Hx Alcohol Use: Yes (OCCAS.) Drug/Substance Use Hx: No Substance Use Type: None Hx Substance Use Treatment: No <Sima García - Last Filed: 07/03/18 02:52> - Past Medical History Allergies/Adverse Reactions: Allergies Allergy/AdvReac Type Severity Reaction Status Date / Time No Known Allergies Allergy Verified 05/21/18 19:52 Home Medications: Ambulatory Orders Omeprazole 40 mg PO DAILY 04/29/17 Tiotropium [place] [Spiriva] 1 inh PO DAILY 02/16/18 Atorvastatin Ca [Lipitor] 80 mg PO DAILY 04/09/18 Acetaminophen [Tylenol .Regular Strength -] 650 mg PO Q6H PRN tablet 04/11/18 Bupropion HCl [Wellbutrin Xl -] 150 mg PO DAILY tab.sr.24h 04/11/18 Docusate Sodium [Colace -] 300 mg PO HS #30 capsule 04/11/18 Ezetimibe [Zetia -] 10 mg PO HS tablet 04/11/18 Polyethylene Glycol 3350 [Miralax 119 gm Btl -] 17 gm PO DAILY #1 bottle Sennosides [Senna -] 2 tab PO HS PRN #60 tablet 04/11/18 Tamsulosin HCl [Flomax -] 0.4 mg PO DAILY@0800 cap.er.24h 04/11/18 Insulin Detemir [Levemir Flextouch] 50 unit SQ AM 07/03/18 Insulin Lispro [Humalog] 10 unit SQ ACHS 07/03/18 Ranolazine [Ranexa -] 1,000 mg PO BID 07/03/18 Rivaroxaban [Xarelto -] 20 mg PO AM 07/03/18 Sotalol HCl [Betapace -] 80 mg PO TID 07/03/18 Review of Systems - Review of Systems Comments:: GENERAL/CONSTITUTIONAL: No fever or chills. No weakness. HEAD, EYES, EARS, NOSE AND THROAT: No change in vision. No ear pain or discharge. No sore throat. CARDIOVASCULAR: No chest pain or shortness of breath. RESPIRATORY: No cough, wheezing, or hemoptysis. GASTROINTESTINAL: No nausea, vomiting, diarrhea or constipation. GENITOURINARY: No dysuria, frequency, or change in urination. MUSCULOSKELETAL: +Swelling, erythema, and pain extending from the right lower inguinal region to the medial thigh and posterior knee. No neck or back pain. SKIN: +Right lower extremity rash and erythema extending from the right inguinal region to the medial thigh and posterior knee. NEUROLOGIC: No headache, vertigo, loss of consciousness, or change in strength/ sensation. ENDOCRINE: No increased thirst. No abnormal weight change. HEMATOLOGIC/LYMPHATIC: No anemia, easy bleeding, or history of blood clots. ALLERGIC/IMMUNOLOGIC: No hives or skin allergy. 07/02/18 23:37 <Tova Pickard - Last Filed: 07/02/18 23:35> *Physical Exam - Vital Signs Last Vital Signs Temp Pulse Resp BP Pulse Ox 97.5 F L 73 16 130/60 99 07/02/18 20:22 07/02/18 20:22 07/02/18 20:22 07/02/18 20:22 07/02/18 20:22 - Physical Exam Comments: GENERAL: The patient is awake, alert, and fully oriented, in no acute distress. HEAD: Normal with no signs of trauma. EYES: Pupils equal, round and reactive to light, extraocular movements intact, sclera anicteric, conjunctiva clear with no pallor. ENT: +Dry mucous membranes. Ears normal, nares patent, oropharynx clear without exudates. NECK: Normal range of motion, supple without lymphadenopathy, JVD, or masses. LUNGS: Breath sounds equal, clear to auscultation bilaterally. No wheeze/ crackles. HEART: Regular rate and rhythm, normal S1 and S2 without murmur or rub. ABDOMEN: Soft/nontender/nondistended. BS wnl. No guarding or rebound. No palpable masses. No hepatosplenomegaly. EXTREMITIES: +Right lower extremity mildly edematous, erythematous, indurated and tender. +Non Fluctuant area extending from just distal to the inguinal region, to just distal to the popliteal region to the medial right thigh. +Pain reproduced with extension of the right lower extremity at the knee. No discharge , no open wound. Normal range of motion. No clubbing or cyanosis. No cords. NEUROLOGICAL: Cranial nerves II through XII grossly intact. Normal speech, normal gait. PSYCH: Normal mood, normal affect. SKIN: +Right lower extremity mildly edematous, erythematous, and indurated. + Non Fluctuant area extending from just distal to the inguinal region, to just distal to the popliteal region to the medial right thigh. Warm, Dry, normal turgor, no lesions noted. 07/02/18 23:35 <Tova Pickard - Last Filed: 07/02/18 23:35> - Vital Signs Last Vital Signs Temp Pulse Resp BP Pulse Ox 97.5 F L 73 16 130/60 99 07/02/18 20:22 07/02/18 20:22 07/02/18 20:22 07/02/18 20:22 07/02/18 20:22 <Sima García - Last Filed: 07/03/18 02:52> Moderate Sedation - Procedure Monitoring Vital Signs: Procedure Monitoring Vital Signs Temperature 97.5 F L 07/02/18 20:22 Pulse Rate 73 07/02/18 20:22 Respiratory Rate 16 07/02/18 20:22 Blood Pressure 130/60 07/02/18 20:22 O2 Sat by Pulse Oximetry (%) 99 07/02/18 20:22 <Tova Pickard - Last Filed: 07/02/18 23:35> - Procedure Monitoring Vital Signs: Procedure Monitoring Vital Signs Temperature 97.5 F L 07/02/18 20:22 Pulse Rate 73 07/02/18 20:22 Respiratory Rate 16 07/02/18 20:22 Blood Pressure 130/60 07/02/18 20:22 O2 Sat by Pulse Oximetry (%) 99 07/02/18 20:22 <Sima García - Last Filed: 07/03/18 02:52> ED Treatment Course - LABORATORY CBC & Chemistry Diagram: 07/02/18 23:20 07/02/18 23:20 <Tova Pickard - Last Filed: 07/02/18 23:35> - LABORATORY CBC & Chemistry Diagram: 07/02/18 23:20 07/02/18 23:20 <Sima García - Last Filed: 07/03/18 02:52> Medical Decision Making - Medical Decision Making Documentation has been prepared under my direction and personally reviewed by me in its entirety. I attest that this documented accurately reflects all work, treatment, procedures and medical decision making performed by me. This 62-year-old man with multiple medical problems including diabetes mellitus , afib, HTN is sent in to ER by Dr. Garza, his PMD with painful, swollen area of the right thigh 4 days s/p laser ablation procedure of varicose veins on that extremity. Patient has not had fever or other systemic symptoms but has significant amount of localized tenderness and reproduction of pain with movement of his leg. Exam as noted with tender,indurated,erythematous area of entire medial aspect of right thigh Doppler duplex study of the right lower extremity is negative for DVT Patient received vancomycin 1 g IV for presumed cellulitis CBC is essentially normal; lactic acid is normal at 1.0. Chemistry notable for marked hyperglycemia(492). Regular insulin, 10 units IV administered Because of patient's right thigh extensive cellulitis and hyperglycemia, patient is at risk for systemic infectious process. Case discussed with Evelyn Aggarwal of [facility] Hospitalist service: Patient will be admitted for IV antibiotic therapy. 12-lead electrocardiogram performed: Normal sinus rhythm at 67 bpm. QRS complex is mildly widened and nonspecific intraventricular block pattern. No acute ST or T-wave abnormalities evident. No cardiac arrhythmia present. EKG is unchanged from tracing dated 04/10/18 <Sima García - Last Filed: 07/03/18 02:52> *DC/Admit/Observation/Transfer - Attestations Scribe Attestion: Documentation prepared by SIMÓN Parra, acting as medical delivery driver for Sima García MD. 07/02/18 23:41 <Tova Pickard - Last Filed: 07/02/18 23:35> - Discharge Dispostion Decision to Admit order: Yes <Sima García - Last Filed: 07/03/18 02:52> Diagnosis at time of Disposition: Cellulitis and abscess of right leg - Discharge Dispostion Condition at time of disposition: Stable
[2018-07-02] MEDS ORDERED: VANCOMYCIN 1,000 MG in DEXTROSE 5%-WATER - 250 ML IVPB ONE (23:15)
[2018-07-02] MEDS ORDERED: VANCOMYCIN 1,000 MG VIAL (RESTRICTED TO ID ONLY) ONE (23:27)
[2018-07-02 23:36] LABS: BASO % 1.3 % (0-2.0); EOS % 3.6 % (0-4.5); HEMATOCRIT 43.8 % (35.4-49); HEMOGLOBIN 14.7 GM/dl (11.7-16.9); LYMPH % 25.6 % (8-40); MCH 31.3 pg (25.7-33.7); MCHC 33.5 g/dl (32.0-35.9); MEAN CELL VOLUME 93.3 fl (80-96); MEAN PLT VOLUME 8.8 fl (7.5-11.1); NEUT % 57.5 % (42.8-82.8); PLATELET COUNT 180 K/MM3 (134-434); RDW 12.4 % (11.9-15.9)
[2018-07-02 23:39] LABS: INR 1.27 (0.82-1.09); PROTHROMBIN TIME (PATIENT) 14.1 SEC (10.2-13.0)
[2018-07-02 23:45] LABS: ALBUMIN 3.3 g/dl (3.4-5.0); ALK PHOS 129 U/L (45-117); ANION GAP 4 MMOL/L (8-16); BILIRUBIN,TOTAL 0.8 mg/dl (0.2-1); BLOOD UREA NITROGEN 15 mg/dl (7-18); CALCIUM 8.8 mg/dl (8.5-10); CHLORIDE 103 mmol/L (98-107); CO2 24 mmol/L (21-32); POTASSIUM 4.4 mmol/L (3.5-5.1); SGOT/AST 13 U/L (15-37); SGPT/ALT 17 U/L (13-61); SODIUM 131 mmol/L (136-145); TOT PROT 6.5 g/dl (6.4-8.2)
[2018-07-02 23:47] LABS: GLUCOSE,RANDOM 492 mg/dl (74-106)
[2018-07-03] MEDS ORDERED: INSULIN REGULAR HUMAN 100 UNITS/ML *VIAL IVPUSH ONE (01:09)
[2018-07-03] MEDS ORDERED: INSULIN REGULAR HUMAN 100 UNITS/ML *VIAL ONE (01:13)
[2018-07-03] MEDS ORDERED: HEMOQUE TEST 1 EACH EACH ONE (02:02)
[2018-07-03] MEDS ORDERED: traMADol HCL 50 MG TABLET PO ONE (02:28)
[2018-07-03] MEDS ORDERED: traMADol HCL 50 MG TABLET ONE (02:30)
[2018-07-03 03:47] VITALS: BMI 32.8
[2018-07-03] MEDS: INSULIN SLIDING SCALE (NOVOLOG) 1 VIAL SQ SCH ×4 (06:47→21:05)
[2018-07-03] MEDS: SOTALOL HCL 80 MG TABLET (FP) PO SCH ×3 (06:47→21:05)
[2018-07-03] MEDS: TAMSULOSIN HCL 0.4 MG CAP PO SCH (07:53)
[2018-07-03 08:33] LABS: BASO % 0.7 % (0-2.0); EOS % 3.5 % (0-4.5); HEMOGLOBIN 13.2 GM/dl (11.7-16.9); LYMPH % 26.7 % (8-40); MCH 30.3 pg (25.7-33.7); MCHC 32.9 g/dl (32.0-35.9); MEAN CELL VOLUME 92.1 fl (80-96); MEAN PLT VOLUME 9.3 fl (7.5-11.1); MONO % 10.7 % (3.8-10.2); NEUT % 58.4 % (42.8-82.8); PLATELET COUNT 163 K/MM3 (134-434); RBC 4.34 M/mm3 (4.00-5.60); RDW 12.3 % (11.9-15.9); WHITE BLOOD COUNT 8.1 K/mm3 (4.0-10.8)
[2018-07-03 08:40] LABS: ANION GAP 8 MMOL/L (8-16); BLOOD UREA NITROGEN 15 mg/dl (7-18); CALCIUM 8.7 mg/dl (8.5-10); CHLORIDE 104 mmol/L (98-107); CO2 23 mmol/L (21-32); CREATININE 0.8 mg/dl (0.55-1.3); GLUCOSE,RANDOM 275 mg/dl (74-106); POTASSIUM 3.9 mmol/L (3.5-5.1); SODIUM 135 mmol/L (136-145)
[2018-07-03] MEDS ORDERED: PT OWN MED DRAWER 7, Y5N ONE (09:03)
[2018-07-03] MEDS: RANOLAZINE E.R. 500 MG TABLET (FP) PO SCH ×2 (09:09→21:05)
[2018-07-03] MEDS: PANTOPRAZOLE 40 MG TABLET (FP) PO SCH (09:09)
[2018-07-03] MEDS: TIOTROPIUM BROMIDE 2.5 MCG (SPIRIVA) RESPIMAT INHALER IH SCH (09:09)
--- NOTE | 2018-07-03 10:19 | HP ---
CHIEF COMPLAINT: swelling, redness in right inner thigh PCP: Dr. Garza HISTORY OF PRESENT ILLNESS: Fredy Shine is a 62 year old male, with a significant PMH of Afib (on Xarelto ), CHF, CAD, PVD, COPD, DM, HTN, HLD, hypothyroid, and neuropathy, who presented to ED yesterday c/o redness, swelling, and pain to his right inner thigh to his right knee for 4 days. Patient notes that he had a laser vein ablation on Thursday (5 days ago), and the day following his procedure he began experiencing redness, swelling, and pain, which has been progressively worsening. He notes that the pain/redness/swelling is most prominent on the posterior aspect of his knee and radiates up into his right inner thigh. pt seen this morning, redness improving, no swelling noted, pt received IV vanco , afebrile ER course was notable for: (1)Blood sugar 492 (2)afebrile, no leukocytes (3)redness to inner right thigh Recent Travel: PAST MEDICAL HISTORY:Afib (on Xarelto), CHF, CAD, PVD, COPD, DM, HTN, HLD, hypothyroid, PAST SURGICAL HISTORY: Medical Coding Specialist: Dr. Harsha High Vascular surgeon: Dr. Jez Fonseca Social History: Smoking:current smoker 10 cigarettes/day Alcohol:denies Drugs: denies Family History: Allergies No Known Allergies Allergy (Verified 05/21/18 19:52) HOME MEDICATIONS: Home Medications Medication Instructions Recorded Omeprazole 40 mg PO DAILY 04/29/17 Tiotropium [place] [Spiriva] 1 inh PO DAILY 02/16/18 Atorvastatin Ca [Lipitor] 80 mg PO DAILY 04/09/18 Acetaminophen [Tylenol .Regular 650 mg PO Q6H PRN tablet 04/11/18 Strength -] Bupropion HCl [Wellbutrin Xl -] 150 mg PO DAILY tab.sr.24h 04/11/18 Docusate Sodium [Colace -] 300 mg PO HS #30 capsule 04/11/18 Ezetimibe [Zetia -] 10 mg PO HS tablet 04/11/18 Polyethylene Glycol 3350 [Miralax 17 gm PO DAILY #1 bottle 04/11/18 119 gm Btl -] Sennosides [Senna -] 2 tab PO HS PRN #60 tablet 04/11/18 Tamsulosin HCl [Flomax -] 0.4 mg PO DAILY@0800 cap.er.24h 04/11/18 Insulin Detemir [Levemir Flextouch] 50 unit SQ AM 07/03/18 Insulin Lispro [Humalog] 10 unit SQ ACHS 07/03/18 Ranolazine [Ranexa -] 1,000 mg PO BID 07/03/18 Rivaroxaban [Xarelto -] 20 mg PO AM 07/03/18 Sotalol HCl [Betapace -] 80 mg PO TID 07/03/18 REVIEW OF SYSTEMS CONSTITUTIONAL: Absent: fever, chills, diaphoresis, generalized weakness, malaise, loss of appetite, weight change HEENT: Absent: rhinorrhea, nasal congestion, throat pain, throat swelling, difficulty swallowing, mouth swelling, ear pain, eye pain, visual changes CARDIOVASCULAR: Absent: chest pain, syncope, palpitations, irregular heart rate, lightheadedness , peripheral edema RESPIRATORY: Absent: cough, shortness of breath, dyspnea with exertion, orthopnea, wheezing, stridor, hemoptysis GASTROINTESTINAL: Absent: abdominal pain, abdominal distension, nausea, vomiting, diarrhea, constipation, melena, hematochezia GENITOURINARY: Absent: dysuria, frequency, urgency, hesitancy, hematuria, flank pain, genital pain MUSCULOSKELETAL: Absent: myalgia, arthralgia, joint swelling, back pain, neck pain SKIN: inner thigh and knee red, and swollen Absent: HEMATOLOGIC/IMMUNOLOGIC: Absent: easy bleeding, easy bruising, lymphadenopathy, frequent infections ENDOCRINE: Absent: unexplained weight gain, unexplained weight loss, heat intolerance, cold intolerance NEUROLOGIC: Absent: headache, focal weakness or paresthesias, dizziness, unsteady gait, seizure, mental status changes, bladder or bowel incontinence PSYCHIATRIC: Absent: anxiety, depression, suicidal or homicidal ideation, hallucinations. PHYSICAL EXAMINATION Vital Signs - 24 hr 07/02/18 07/03/18 07/03/18 20:22 02:26 03:34 Temperature 97.5 F L 98 F 97.6 F Pulse Rate 73 67 Pulse Rate [ 72 Radial] Respiratory 16 16 18 Rate Blood Pressure 130/60 134/68 Blood Pressure 141/77 [Arm] O2 Sat by Pulse 99 98 97 Oximetry (%) 07/03/18 06:00 Temperature 97.2 F L Pulse Rate 74 Pulse Rate [ Radial] Respiratory 18 Rate Blood Pressure 125/70 Blood Pressure [Arm] O2 Sat by Pulse Oximetry (%) GENERAL: Awake, alert, and fully oriented, in no acute distress. HEAD: Normal with no signs of trauma. EYES: Pupils equal, round and reactive to light, extraocular movements intact, sclera anicteric, conjunctiva clear. No lid lag. EARS, NOSE, THROAT: Ears normal, nares patent, oropharynx clear without exudates. Moist mucous membranes. NECK: Normal range of motion, supple without lymphadenopathy, JVD, or masses. LUNGS: Breath sounds equal, clear to auscultation bilaterally. No wheezes, and no crackles. No accessory muscle use. HEART: Regular rate and rhythm, normal S1 and S2 without murmur, rub or gallop. ABDOMEN: Soft, nontender, not distended, normoactive bowel sounds, no guarding, no rebound, no masses. No hepatomegaly or splenomegaly. MUSCULOSKELETAL: Normal range of motion at all joints. No bony deformities or tenderness. No CVA tenderness. UPPER EXTREMITIES: 2+ pulses, warm, well-perfused. No cyanosis. No clubbing. No peripheral edema. LOWER EXTREMITIES: 2+ pulses, warm, well-perfused. No calf tenderness. No peripheral edema. NEUROLOGICAL: Cranial nerves II-XII intact. Normal speech. Normal gait. PSYCHIATRIC: Cooperative. Good eye contact. Appropriate mood and affect. SKIN: Warm, dry, normal turgor, mild redness to inner right thigh, non-tender, no drainage from ablation site Laboratory Results - last 24 hr 07/02/18 07/02/18 07/02/18 23:20 23:20 23:20 WBC 8.0 RBC 4.70 Hgb 14.7 Hct 43.8 MCV 93.3 MCH 31.3 MCHC 33.5 RDW 12.4 Plt Count 180 MPV 8.8 Absolute Neuts (auto) 4.5 Neutrophils % 57.5 Lymphocytes % 25.6 Monocytes % 12.0 H Eosinophils % 3.6 Basophils % 1.3 PT with INR INR Sodium 131 L Potassium 4.4 Chloride 103 Carbon Dioxide 24 Anion Gap 4 L BUN 15 Creatinine 1.0 Creat Clearance w eGFR > 60 POC Glucometer Random Glucose 492 H* Hemoglobin A1c % Lactic Acid 1.0 Calcium 8.8 Total Bilirubin 0.8 AST 13 L ALT 17 Alkaline Phosphatase 129 H Total Protein 6.5 Albumin 3.3 L 07/02/18 07/03/18 07/03/18 23:20 02:20 06:24 WBC RBC Hgb Hct MCV MCH MCHC RDW Plt Count MPV Absolute Neuts (auto) Neutrophils % Lymphocytes % Monocytes % Eosinophils % Basophils % PT with INR 14.1 H INR 1.27 H Sodium Potassium Chloride Carbon Dioxide Anion Gap BUN Creatinine Creat Clearance w eGFR POC Glucometer [phone] Random Glucose Hemoglobin A1c % Lactic Acid Calcium Total Bilirubin AST ALT Alkaline Phosphatase Total Protein Albumin 07/03/18 07/03/18 07/03/18 07:30 07:30 07:30 WBC 8.1 RBC 4.34 Hgb 13.2 Hct 40.0 MCV 92.1 MCH 30.3 MCHC 32.9 RDW 12.3 Plt Count 163 MPV 9.3 Absolute Neuts (auto) 4.6 Neutrophils % 58.4 Lymphocytes % 26.7 Monocytes % 10.7 H Eosinophils % 3.5 Basophils % 0.7 PT with INR INR Sodium 135 L Potassium 3.9 Chloride 104 Carbon Dioxide 23 Anion Gap 8 BUN 15 Creatinine 0.8 Creat Clearance w eGFR > 60 POC Glucometer Random Glucose 275 H Hemoglobin A1c % 11.6 H Lactic Acid Calcium 8.7 Total Bilirubin AST ALT Alkaline Phosphatase Total Protein Albumin ASSESSMENT/PLAN: Fredy Shine is a 62 yr old M, medical condition HTN, Afib, on xarelto, COPD, LIAN, DM, Hypothyrodism, admitted for Admitting Diagnosis Cellulitis of Right thigh Chronic Problems DM HTN CHf COPD Afib Hypothyroidism LIAN A/P #Cellulitis -IV abt, vanc -lactic wnl -Blood cx pending -ID note appreciated -afebrile, wbc wnl -pain mgt #DM, w/hyperglycemia -a1c 11.6 -monitor FS -ISC -diabetic diet -on levemir 50 units -will restart #HTN #Afib, chronic #CHF #HLD -on xarelto, sotalol, statin ranexa #Hypothyroidism -on synthroid #LIAN #COPD -c/w sprirva -pt uses Bipap at home Full Code Dispo: requires inpatient treatment Visit type - Emergency Visit Emergency Visit: Yes ED Registration Date: 07/03/18 Care time: The patient presented to the Emergency Department on the above date and was hospitalized for further evaluation of their emergent condition. - New Patient This patient is new to me today: Yes Date on this admission: 07/03/18 - Critical Care Critical Care patient: No
[2018-07-03] MEDS ORDERED: KETOROLAC TROMETHAMINE 30 MG/1 ML VIAL IVPUSH ONE (10:42)
--- NOTE | 2018-07-03 11:00 | CON.ID ---
Consult - History of Present Illness History of Present Illness: 62 y.o. male with PMH of DM, CAD, HTN, HLD, AFIB, CHF, COPD, PVD, hypothyroidism presents with pain and erythema in Rt posterior knee extending to Rt inner thigh for 4 days. He underwent laser vein ablation 5 days [employer] and started developing symptoms the next day which worsened and he had difficulty walking. He had same procedure done on Lt side prior to this without any complications. One year ago pt states he was treated for a Rt inguinal abscess. He denies fever/chills or any other specific complaints. In the ER pt was afebrile with normal wbc/lactic acid but with elevated glucose (492). He was started on antibiotics and today reports slightly less pain. - History Source History Provided By: Patient Limitations to Obtaining History: No Limitations - Past Medical History Cardio/Vascular: Yes: AFIB, CAD (Non-obstructive), HTN, Hyperlipdemia Pulmonary: Yes: COPD, Sleep Apnea Gastrointestinal: Yes: GERD Endocrine: Yes: Diabetes Mellitus - Past Surgical History Past Surgical History: Yes: Tonsillectomy - Alcohol/Substance Use Hx Alcohol Use: Yes (OCCAS.) - Smoking History Smoking history: Current every day smoker Have you smoked in the past 12 months: Yes Aproximately how many cigarettes per day: 10 If you are a former smoker, when did you quit?: On Chantix - Social History Usual Living Arrangement: Alone (alone in basement apartment with 7 steps to enter, previously Independent in ADLs without Assistive Device and has 2 sister nearby who assist as needed) Home Medications - Allergies Allergies/Adverse Reactions: Allergies Allergy/AdvReac Type Severity Reaction Status Date / Time No Known Allergies Allergy Verified 05/21/18 19:52 - Home Medications Home Medications: Ambulatory Orders Omeprazole 40 mg PO DAILY 04/29/17 Tiotropium [place] [Spiriva] 1 inh PO DAILY 02/16/18 Atorvastatin Ca [Lipitor] 80 mg PO DAILY 04/09/18 Acetaminophen [Tylenol .Regular Strength -] 650 mg PO Q6H PRN tablet 04/11/18 Bupropion HCl [Wellbutrin Xl -] 150 mg PO DAILY tab.sr.24h 04/11/18 Docusate Sodium [Colace -] 300 mg PO HS #30 capsule 04/11/18 Ezetimibe [Zetia -] 10 mg PO HS tablet 04/11/18 Polyethylene Glycol 3350 [Miralax 119 gm Btl -] 17 gm PO DAILY #1 bottle Sennosides [Senna -] 2 tab PO HS PRN #60 tablet 04/11/18 Tamsulosin HCl [Flomax -] 0.4 mg PO DAILY@0800 cap.er.24h 04/11/18 Insulin Detemir [Levemir Flextouch] 50 unit SQ AM 07/03/18 Insulin Lispro [Humalog] 10 unit SQ ACHS 07/03/18 Ranolazine [Ranexa -] 1,000 mg PO BID 07/03/18 Rivaroxaban [Xarelto -] 20 mg PO AM 07/03/18 Sotalol HCl [Betapace -] 80 mg PO TID 07/03/18 Family Disease History - Family Disease History Family Disease History: CA: Father (gastric cancer) Review of Systems - Review of Systems Constitutional: reports: No Symptoms. denies: Chills, Diaphoresis, Fever, Lethargy, Loss of Appetite, Malaise, Night Sweats, Unintentional Wgt. Loss, Weakness, Other Eyes: reports: No Symptoms. denies: Blind Spots, Blurred Vision, Double Vision , Eye Pain, Floaters, Photophobia, Recent Change in Vision, Other HENT: reports: No Symptoms. denies: Difficult Swallowing, Ear Discharge, Ear Pain, Epistaxis, Gingival Bleeding, Hearing Loss, Mouth Swelling, Nasal Congestion, Ocular Prosthesis, Throat Pain, Toothache, Ringing in Ears, Other Neck: reports: No Symptoms. denies: Decreased ROM, Lumps, Pain on Movement, Stiffness, Swollen Glands, Tenderness, Other Cardiovascular: reports: No Symptoms. denies: Chest Pain, Edema, Palpitations, Shortness of Breath, Other Respiratory: reports: No Symptoms. denies: Cough, Exercise Intolerance, Hemoptysis, Orthopnea, PND, Snoring, SOB, SOB on Exertion, Wheezing, Other Gastrointestinal: reports: No Symptoms. denies: Abdominal Pain, Bloating, Constipation, Diarrhea, Dysphagia, Indigestion, Melena, Nausea, Rectal Bleeding , Vomiting, Vomiting Blood, Other Genitourinary: reports: No Symptoms. denies: Burning, Discharge, Dysuria, Flank Pain, Frequency, Hematuria, Incontinence, Lesions, Menses, Pain, Testicular Mass, Testicular Pain, Testicular Swelling, Urgency, Vaginal Bleeding , Other Musculoskeletal: reports: Extremity Pain Integumentary: reports: Erythema (Rt posterior knee extending to Rt inner thigh) Neurological: reports: No Symptoms. denies: Change in LOC, Change in Speech, Confusion, Dizziness, Headache, Incoordination, Numbness, Parasthesia, Pre- Existing Deficit, Seizure, Syncope, Tremors, Unsteady Gait, Weakness, Other Endocrine: reports: No Symptoms. denies: Excessive Sweating, Flushing, Increased Hunger, Increased Thirst, Intolerance to Cold, Intolerance to Heat, Unexplained Weight Gain, Unexplained Weight Loss, Other Hematology/Lymphatic: reports: No Symptoms. denies: Easily Bruised, Excessive Bleeding, Swollen Glands, Other Psychiatric: reports: No Symptoms. denies: Altered Sleep Pattern, Anxiety, Depression, Hallucinations, Panic, Paranoia, Suicidal, Other Physical Exam Vital Signs: Vital Signs Temperature 97.2 F L 07/03/18 06:00 Pulse Rate 74 07/03/18 06:00 Respiratory Rate 18 07/03/18 06:00 Blood Pressure 125/70 07/03/18 06:00 O2 Sat by Pulse Oximetry (%) 97 07/03/18 03:34 Constitutional: Yes: No Distress, Calm Eyes: Yes: Conjunctiva Clear, EOM Intact HENT: Yes: Atraumatic, Normocephalic Neck: Yes: Supple Cardiovascular: Yes: Regular Rate and Rhythm Respiratory: Yes: CTA Bilaterally Gastrointestinal: Yes: Normal Bowel Sounds, Soft Renal/: Yes: WNL Musculoskeletal: Yes: WNL Extremities: Yes: Erythema (Rt inner thigh down to Rt knee) Edema: No Integumentary: Yes: Erythema (Erythema/warmth/tenderness with mild induration extending from Rt medial thigh to Rt posterior above knee, no Rt knee edema/ erythema) Psychiatric: Yes: Alert Labs: CBC, BMP 07/03/18 07:30 07/03/18 07:30 Laboratory Tests 07/02/18 07/02/18 07/02/18 23:20 23:20 23:20 WBC 8.0 RBC 4.70 Hgb 14.7 Hct 43.8 MCV 93.3 MCH 31.3 MCHC 33.5 RDW 12.4 Plt Count 180 MPV 8.8 Absolute Neuts (auto) 4.5 Neutrophils % 57.5 Lymphocytes % 25.6 Monocytes % 12.0 H Eosinophils % 3.6 Basophils % 1.3 PT with INR INR Sodium 131 L Potassium 4.4 Chloride 103 Carbon Dioxide 24 Anion Gap 4 L BUN 15 Creatinine 1.0 Creat Clearance w eGFR > 60 POC Glucometer Random Glucose 492 H* Hemoglobin A1c % Lactic Acid 1.0 Calcium 8.8 Total Bilirubin 0.8 AST 13 L ALT 17 Alkaline Phosphatase 129 H Total Protein 6.5 Albumin 3.3 L 07/02/18 07/03/18 07/03/18 23:20 02:20 06:24 WBC RBC Hgb Hct MCV MCH MCHC RDW Plt Count MPV Absolute Neuts (auto) Neutrophils % Lymphocytes % Monocytes % Eosinophils % Basophils % PT with INR 14.1 H INR 1.27 H Sodium Potassium Chloride Carbon Dioxide Anion Gap BUN Creatinine Creat Clearance w eGFR POC Glucometer 354.81278 271 Random Glucose Hemoglobin A1c % Lactic Acid Calcium Total Bilirubin AST ALT Alkaline Phosphatase Total Protein Albumin 07/03/18 07/03/18 07/03/18 07:30 07:30 07:30 WBC 8.1 RBC 4.34 Hgb 13.2 Hct 40.0 MCV 92.1 MCH 30.3 MCHC 32.9 RDW 12.3 Plt Count 163 MPV 9.3 Absolute Neuts (auto) 4.6 Neutrophils % 58.4 Lymphocytes % 26.7 Monocytes % 10.7 H Eosinophils % 3.5 Basophils % 0.7 PT with INR INR Sodium 135 L Potassium 3.9 Chloride 104 Carbon Dioxide 23 Anion Gap 8 BUN 15 Creatinine 0.8 Creat Clearance w eGFR > 60 POC Glucometer Random Glucose 275 H Hemoglobin A1c % 11.6 H Lactic Acid Calcium 8.7 Total Bilirubin AST ALT Alkaline Phosphatase Total Protein Albumin Imaging - Results Ultrasound: Report Reviewed (neg for DVT) Problem List - Problems (1) Cellulitis and abscess of right leg Code(s): L03.115 - CELLULITIS OF RIGHT LOWER LIMB; L02.415 - CUTANEOUS ABSCESS OF RIGHT LOWER LIMB (2) Atrial fibrillation Code(s): I48.91 - UNSPECIFIED ATRIAL FIBRILLATION Qualifiers: Atrial fibrillation type: paroxysmal Qualified Code(s): I48.0 - Paroxysmal atrial fibrillation (3) CAD (coronary artery disease) Code(s): I25.10 - ATHSCL HEART DISEASE OF [place] CORONARY ARTERY W/O ANG PCTRS Qualifiers: Coronary Disease-Associated Artery/Lesion type: [place] artery [place] vs. transplanted heart: [place] heart Associated angina: with stable angina Qualified Code(s): I25.118 - Atherosclerotic heart disease of [place] coronary artery with other forms of angina pectoris (4) CHF (congestive heart failure) Code(s): I50.9 - HEART FAILURE, UNSPECIFIED Qualifiers: Heart failure type: unspecified Heart failure chronicity: unspecified Qualified Code(s): I50.9 - Heart failure, unspecified (5) Diabetes Code(s): E11.9 - TYPE 2 DIABETES MELLITUS WITHOUT COMPLICATIONS Qualifiers: Diabetes mellitus type: type 2 Diabetes mellitus mcfp insulin use: without terminal worker use Diabetes mellitus complication status: with neurologic complications Diabetes mellitus complication detail: with unspecified neuropathy Qualified Code(s): E11.40 - Type 2 diabetes mellitus with diabetic neuropathy, unspecified (6) HTN (hypertension) Code(s): I10 - ESSENTIAL (PRIMARY) HYPERTENSION Qualifiers: Hypertension type: essential hypertension Qualified Code(s): I10 - Essential (primary) hypertension (7) Hypercholesterolemia Code(s): E78.0 - PURE HYPERCHOLESTEROLEMIA * DO NOT USE * (8) Paroxysmal A-fib Code(s): I48.0 - PAROXYSMAL ATRIAL FIBRILLATION Assessment/Plan 62 y.o. male with PMH of DM, CAD, HTN, HLD, AFIB, COPD, PVD, hypothyroidism presenting with Rt medial thigh erythema, warmth, tenderness and mild induration x 4 days s/p laser vein ablation Rt thigh cellulitis Uncontrolled DM -- continue Vancomycin, Vancomycin trough prior to 4th dose -- needs tight glycemic control -- monitor renal function Pt is afebrile, stable at this time Will follow Thank you
[2018-07-03] MEDS: VANCOMYCIN HCL 1,500 MG in SODIUM CHLORIDE 500 ML IVPB SCH ×2 (11:27→23:08)
[2018-07-03] MEDS: ACETAMINOPHEN 325 MG TABLET (FP) PO PRN (11:32)
[2018-07-03] MEDS ORDERED: VANCOMYCIN HCL 1,500 MG in DEXTROSE 5%-WATER - 500 ML IVPB SCH (12:00)
[2018-07-03] MEDS: POLYETHYLENE GLYCOL 3350 119 GM BTL PO SCH (12:44)
[2018-07-03] MEDS ORDERED: SENNOSIDES 8.6MG TABLET (FP) PO PRN (16:48)
--- NOTE | 2018-07-03 16:50 | EKG ---
Test Reason : Blood Pressure : / mmHG Vent. Rate : 067 BPM Atrial Rate : 067 BPM P-R Int : 184 ms QRS Dur : 128 ms QT Int : 450 ms P-R-T Axes : 091 048 025 degrees QTc Int : 475 ms NORMAL SINUS RHYTHM NON-SPECIFIC INTRA-VENTRICULAR CONDUCTION BLOCK ABNORMAL ECG WHEN COMPARED WITH ECG OF 10-APR-2018 09:19, NO SIGNIFICANT CHANGE WAS FOUND Confirmed by Renetta Sheldon ([id number]) on 07/03/2018 4:50:20 PM Referred By: MD HERNANDEZ Confirmed By:Renetta Sheldon
[2018-07-03] MEDS ORDERED: FUROSEMIDE 20 MG TABLET (FP) PO SCH (17:00)
[2018-07-03] MEDS: RIVAROXABAN 20 MG TABLET PO SCH (17:08)
[2018-07-03] MEDS: traMADol HCL 50 MG TABLET PO PRN (17:09)
[2018-07-03] MEDS: ATORVASTATIN CA 80 MG TABLET (FP) PO SCH (21:04)
[2018-07-03] MEDS: EZETIMIBE 10 MG TABLET (FP) PO SCH (21:05)
[2018-07-03] MEDS: GABAPENTIN 300 MG CAPSULE (FP) PO SCH (21:05)
[2018-07-03] MEDS ORDERED: REFRIGERATED ANITBIOTICS ONE (22:15)
--- NOTE | 2018-07-03 22:20 | CONSULT ---
Consult Consult Specialty:: endocrine Referred by:: sarah booker Np Reason for Consultation:: diabetes mellitus hyperglycemia - History of Present Illness Chief Complaint: leg swelling and reddness History of Present Illness: 62 year old male, with a significant PMH of DM 2,Afib (on Xarelto), CHF, CAD, PVD, COPD, HTN, HLD, hypothyroid, and neuropathy, who presented to ED with c/o redness, swelling, and pain to his right inner thigh to his right knee. Patient notes that he had a laser vein ablation on Thursday (5 days ago), and the day following his procedure he began experiencing redness, swelling, and pain, which has been progressively worse,unable to bear weight on the leg. He denies fever chills,nausea or vomiting. - History Source History Provided By: Patient - Past Medical History Cardio/Vascular: Yes: AFIB, CAD (Non-obstructive), HTN, Hyperlipdemia Pulmonary: Yes: COPD, Sleep Apnea Gastrointestinal: Yes: GERD Endocrine: Yes: Diabetes Mellitus - Past Surgical History Past Surgical History: Yes: Tonsillectomy - Alcohol/Substance Use Hx Alcohol Use: Yes (OCCAS.) - Smoking History Smoking history: Current every day smoker Have you smoked in the past 12 months: Yes Aproximately how many cigarettes per day: 10 If you are a former smoker, when did you quit?: On Chantix - Social History Usual Living Arrangement: Alone (alone in basement apartment with 7 steps to enter, previously Independent in ADLs without Assistive Device and has 2 sister nearby who assist as needed) Home Medications - Allergies Allergies/Adverse Reactions: Allergies Allergy/AdvReac Type Severity Reaction Status Date / Time No Known Allergies Allergy Verified 05/21/18 19:52 - Home Medications Home Medications: Ambulatory Orders Omeprazole 40 mg PO DAILY 04/29/17 Tiotropium [place] [Spiriva] 1 inh PO DAILY 02/16/18 Atorvastatin Ca [Lipitor] 80 mg PO DAILY 04/09/18 Acetaminophen [Tylenol .Regular Strength -] 650 mg PO Q6H PRN tablet 04/11/18 Bupropion HCl [Wellbutrin Xl -] 150 mg PO DAILY tab.sr.24h 04/11/18 Docusate Sodium [Colace -] 300 mg PO HS #30 capsule 04/11/18 Ezetimibe [Zetia -] 10 mg PO HS tablet 04/11/18 Polyethylene Glycol 3350 [Miralax 119 gm Btl -] 17 gm PO DAILY #1 bottle Sennosides [Senna -] 2 tab PO HS PRN #60 tablet 04/11/18 Tamsulosin HCl [Flomax -] 0.4 mg PO DAILY@0800 cap.er.24h 04/11/18 Furosemide [Lasix] 20 mg PO ASDIR MDD every other day 07/03/18 Gabapentin 300 mg PO TID 07/03/18 Insulin Detemir [Levemir Flextouch] 50 unit SQ AM 07/03/18 Insulin Lispro [Humalog] 10 unit SQ ACHS 07/03/18 Levothyroxine [Synthroid -] 25 mcg PO DAILY 07/03/18 Loratadine 10 mg PO DAILY 07/03/18 Potassium Chloride [K-Tab ER] 20 meq PO DAILY 07/03/18 Ranolazine [Ranexa -] 1,000 mg PO BID 07/03/18 Rivaroxaban [Xarelto -] 20 mg PO AM 07/03/18 Sotalol HCl [Betapace -] 80 mg PO TID 07/03/18 Valsartan 40 mg PO 07/03/18 Family Disease History - Family Disease History Family Disease History: CA: Father (gastric cancer) Review of Systems - Review of Systems Constitutional: reports: Weakness Eyes: reports: No Symptoms HENT: reports: No Symptoms Neck: reports: No Symptoms Cardiovascular: reports: Shortness of Breath Respiratory: reports: Exercise Intolerance, SOB on Exertion Gastrointestinal: reports: Bloating, Constipation Genitourinary: reports: No Symptoms Breasts: reports: No Symptoms Reported Musculoskeletal: reports: Extremity Pain, Joint Pain, Joint Swelling, Muscle Pain, Muscle Cramps, Muscle Weakness Integumentary: reports: Rash Neurological: reports: Dizziness, Numbness, Unsteady Gait, Weakness Endocrine: reports: Increased Hunger, Increased Thirst, Unexplained Weight Loss Physical Exam Vital Signs: Vital Signs Temperature 98.1 F 07/03/18 18:00 Pulse Rate 80 07/03/18 18:00 Respiratory Rate 20 07/03/18 18:00 Blood Pressure 135/74 07/03/18 18:00 O2 Sat by Pulse Oximetry (%) 98 07/03/18 20:35 Constitutional: Yes: Calm Eyes: Yes: EOM Intact HENT: Yes: Normocephalic Neck: Yes: Trachea Midline Cardiovascular: Yes: Pulse Irregular Respiratory: Yes: CTA Bilaterally Gastrointestinal: Yes: Normal Bowel Sounds, Abdomen, Obese ...Rectal Exam: Yes: Deferred Renal/: Yes: WNL Breast(s): Yes: WNL Musculoskeletal: Yes: Joint Stiffness, Joint Swelling, Muscle Pain, Muscle Weakness Extremities: Yes: Cool, Delayed Capillary Refill, Erythema Edema: Yes Peripheral Pulses WNL: Yes Integumentary: Yes: Erythema, Rash, Venous Stasis Changes Wound/Incision: Yes: Reddened Neurological: Yes: Alert, Oriented, Loss of Sensation, Numbness, Tingling ...Motor Strength: RLE Labs: CBC, BMP 07/03/18 07:30 07/03/18 07:30 Problem List - Problems (1) Type 2 diabetes mellitus with hyperosmolarity without nonketotic hyperglycemic-hyperosmolar coma ([facility]) Code(s): E11.00 - TYPE 2 DIAB W HYPROSM W/O NONKET HYPRGLY-HYPROS COMA ([facility]) (2) Cellulitis and abscess of right leg Code(s): L03.115 - CELLULITIS OF RIGHT LOWER LIMB; L02.415 - CUTANEOUS ABSCESS OF RIGHT LOWER LIMB (3) Abdominal pain Code(s): R10.9 - UNSPECIFIED ABDOMINAL PAIN (4) Acute gastroenteritis Code(s): K52.9 - NONINFECTIVE GASTROENTERITIS AND COLITIS, UNSPECIFIED (5) Atrial fibrillation Code(s): I48.91 - UNSPECIFIED ATRIAL FIBRILLATION Qualifiers: Atrial fibrillation type: paroxysmal Qualified Code(s): I48.0 - Paroxysmal atrial fibrillation (6) BPH (benign prostatic hyperplasia) Code(s): N40.0 - BENIGN PROSTATIC HYPERPLASIA WITHOUT LOWER URINRY TRACT SYMP (7) Back pain Code(s): M54.9 - DORSALGIA, UNSPECIFIED (8) CAD (coronary artery disease) Code(s): I25.10 - ATHSCL HEART DISEASE OF [place] CORONARY ARTERY W/O ANG PCTRS Qualifiers: Coronary Disease-Associated Artery/Lesion type: [place] artery [place] vs. transplanted heart: [place] heart Associated angina: with stable angina Qualified Code(s): I25.118 - Atherosclerotic heart disease of [place] coronary artery with other forms of angina pectoris Assessment/Plan Current Active Problems Cellulitis and abscess of right leg (Acute) dm2 neuropathy/hyperglycemia chf afib cad hyperlipidemia hypertension venous stasis pad/pvd Abnormal Lab Results 07/02/18 07/02/18 07/02/18 23:20 23:20 23:20 Monocytes % 12.0 H PT with INR 14.1 H INR 1.27 H Sodium 131 L Anion Gap 4 L Random Glucose 492 H* Hemoglobin A1c % AST 13 L Alkaline Phosphatase 129 H Albumin 3.3 L 07/03/18 07/03/18 07/03/18 07:30 07:30 07:30 Monocytes % 10.7 H PT with INR INR Sodium 135 L Anion Gap Random Glucose 275 H Hemoglobin A1c % 11.6 H AST Alkaline Phosphatase Albumin Laboratory Results - last 24 hr 07/02/18 07/02/18 07/02/18 23:20 23:20 23:20 WBC 8.0 RBC 4.70 Hgb 14.7 Hct 43.8 MCV 93.3 MCH 31.3 MCHC 33.5 RDW 12.4 Plt Count 180 MPV 8.8 Absolute Neuts (auto) 4.5 Neutrophils % 57.5 Lymphocytes % 25.6 Monocytes % 12.0 H Eosinophils % 3.6 Basophils % 1.3 PT with INR INR Sodium 131 L Potassium 4.4 Chloride 103 Carbon Dioxide 24 Anion Gap 4 L BUN 15 Creatinine 1.0 Creat Clearance w eGFR > 60 POC Glucometer Random Glucose 492 H* Hemoglobin A1c % Lactic Acid 1.0 Calcium 8.8 Total Bilirubin 0.8 AST 13 L ALT 17 Alkaline Phosphatase 129 H Total Protein 6.5 Albumin 3.3 L 07/02/18 07/03/18 07/03/18 23:20 02:20 06:24 WBC RBC Hgb Hct MCV MCH MCHC RDW Plt Count MPV Absolute Neuts (auto) Neutrophils % Lymphocytes % Monocytes % Eosinophils % Basophils % PT with INR 14.1 H INR 1.27 H Sodium Potassium Chloride Carbon Dioxide Anion Gap BUN Creatinine Creat Clearance w eGFR POC Glucometer 354.88656 271 Random Glucose Hemoglobin A1c % Lactic Acid Calcium Total Bilirubin AST ALT Alkaline Phosphatase Total Protein Albumin 07/03/18 07/03/18 07/03/18 07:30 07:30 07:30 WBC 8.1 RBC 4.34 Hgb 13.2 Hct 40.0 MCV 92.1 MCH 30.3 MCHC 32.9 RDW 12.3 Plt Count 163 MPV 9.3 Absolute Neuts (auto) 4.6 Neutrophils % 58.4 Lymphocytes % 26.7 Monocytes % 10.7 H Eosinophils % 3.5 Basophils % 0.7 PT with INR INR Sodium 135 L Potassium 3.9 Chloride 104 Carbon Dioxide 23 Anion Gap 8 BUN 15 Creatinine 0.8 Creat Clearance w eGFR > 60 POC Glucometer Random Glucose 275 H Hemoglobin A1c % 11.6 H Lactic Acid Calcium 8.7 Total Bilirubin AST ALT Alkaline Phosphatase Total Protein Albumin 07/03/18 07/03/18 07/03/18 11:23 16:40 20:43 WBC RBC Hgb Hct MCV MCH MCHC RDW Plt Count MPV Absolute Neuts (auto) Neutrophils % Lymphocytes % Monocytes % Eosinophils % Basophils % PT with INR INR Sodium Potassium Chloride Carbon Dioxide Anion Gap BUN Creatinine Creat Clearance w eGFR POC Glucometer 319 285 269 Random Glucose Hemoglobin A1c % Lactic Acid Calcium Total Bilirubin AST ALT Alkaline Phosphatasevas Total Protein Albumin plan; bgm qid novolog insulin doses levemir 50 units am levemir 20 units hs id consult appreciated iv antibiotics
[2018-07-04] MEDS ORDERED: PT OWN MED DRAWER 7, Y5N ONE ×3 (05:35→20:49)
[2018-07-04] MEDS: FUROSEMIDE 20 MG TABLET (FP) PO SCH (06:27)
[2018-07-04] MEDS: LEVOTHYROXINE NA 25 MCG TABLET (FP) PO SCH (06:27)
[2018-07-04] MEDS: GABAPENTIN 300 MG CAPSULE (FP) PO SCH ×3 (06:27→21:02)
[2018-07-04] MEDS: SOTALOL HCL 80 MG TABLET (FP) PO SCH ×3 (06:27→21:02)
[2018-07-04] MEDS: INSULIN (LEVEMIR) 100 UNITS/ML UNITS SQ SCH (06:33)
[2018-07-04] MEDS: INSULIN SLIDING SCALE (NOVOLOG) 1 VIAL SQ SCH ×4 (06:34→21:03)
[2018-07-04] MEDS: TAMSULOSIN HCL 0.4 MG CAP PO SCH (08:05)
[2018-07-04] MEDS: RANOLAZINE E.R. 500 MG TABLET (FP) PO SCH ×2 (09:20→22:27)
[2018-07-04] MEDS: LORATADINE 10 MG TABLET PO SCH (09:21)
[2018-07-04] MEDS: PANTOPRAZOLE 40 MG TABLET (FP) PO SCH (09:21)
[2018-07-04] MEDS: VALSARTAN 40 MG TABLET (FP) PO SCH (09:21)
[2018-07-04] MEDS: POLYETHYLENE GLYCOL 3350 119 GM BTL PO SCH (09:22)
[2018-07-04] MEDS: traMADol HCL 50 MG TABLET PO PRN ×2 (09:22→19:13)
[2018-07-04] MEDS: TIOTROPIUM BROMIDE 2.5 MCG (SPIRIVA) RESPIMAT INHALER IH SCH (09:44)
[2018-07-04 10:06] LABS: BASO % 0.7 % (0-2.0); EOS % 3.5 % (0-4.5); HEMATOCRIT 41.6 % (35.4-49); HEMOGLOBIN 13.7 GM/dl (11.7-16.9); LYMPH % 22.2 % (8-40); MCH 30.6 pg (25.7-33.7); MCHC 32.9 g/dl (32.0-35.9); MEAN CELL VOLUME 93.2 fl (80-96); MEAN PLT VOLUME 9.4 fl (7.5-11.1); MONO % 8.8 % (3.8-10.2); NEUT % 64.8 % (42.8-82.8); PLATELET COUNT 151 K/MM3 (134-434); RBC 4.46 M/mm3 (4.00-5.60); RDW 12.5 % (11.9-15.9); WHITE BLOOD COUNT 7.8 K/mm3 (4.0-10.8)
[2018-07-04 10:31] LABS: ALBUMIN 2.9 g/dl (3.4-5.0); ALK PHOS 111 U/L (45-117); ANION GAP 10 MMOL/L (8-16); BILIRUBIN,TOTAL 0.8 mg/dl (0.2-1); BLOOD UREA NITROGEN 12 mg/dl (7-18); CALCIUM 8.8 mg/dl (8.5-10); CHLORIDE 103 mmol/L (98-107); CO2 23 mmol/L (21-32); CREATININE 0.6 mg/dl (0.55-1.3); GLUCOSE,RANDOM 224 mg/dl (74-106); MAGNESIUM 1.8 mg/dL (1.8-2.4); POTASSIUM 4.1 mmol/L (3.5-5.1); SGOT/AST 12 U/L (15-37); SGPT/ALT 14 U/L (13-61); SODIUM 136 mmol/L (136-145); TOT PROT 5.8 g/dl (6.4-8.2)
--- NOTE | 2018-07-04 10:57 | PN ---
Progress Note, Physician History of Present Illness: Pt still with c/o pain in Rt thigh but slightly less edematous/ erythematous.Remains afebrile. No other specific complaints. - Current Medication List Current Medications: Active Medications Acetaminophen (Tylenol -) 650 mg PO Q6H PRN PRN Reason: PAIN LEVEL 1-5 Last Admin: 07/03/18 11:32 Dose: 650 mg Atorvastatin Calcium (Lipitor -) 80 mg PO HS [facility] Last Admin: 07/03/18 21:04 Dose: 80 mg Bupropion HCl (Wellbutrin Xl -) 150 mg PO DAILY [facility] Last Admin: 07/04/18 09:21 Dose: 150 mg Ezetimibe (Zetia -) 10 mg PO HS [facility] Last Admin: 07/03/18 21:05 Dose: 10 mg Furosemide (Lasix -) 20 mg PO Q2D@0600 [facility] Last Admin: 07/04/18 06:27 Dose: 20 mg Gabapentin (Neurontin -) 300 mg PO TID [facility] Last Admin: 07/04/18 06:27 Dose: 300 mg Vancomycin HCl 1,500 mg/ (Sodium Chloride) 500 mls @ 250 mls/hr IVPB Q12H [facility]; Protocol Last Admin: 07/03/18 23:08 Dose: 250 mls/hr Insulin Aspart (Novolog Vial Sliding Scale -) 1 vial SQ ACHS [facility]; Protocol Last Admin: 07/04/18 06:34 Dose: 9 units Insulin Detemir (Levemir Vial) 50 units SQ DAILY@0700 [facility] Last Admin: 07/04/18 06:33 Dose: 50 units Levothyroxine Sodium (Synthroid -) 25 mcg PO DAILY@0700 [facility] Last Admin: 07/04/18 06:27 Dose: 25 mcg Loratadine (Claritin -) 10 mg PO DAILY [facility] Last Admin: 07/04/18 09:21 Dose: 10 mg Pantoprazole Sodium (Protonix -) 40 mg PO DAILY [facility] Last Admin: 07/04/18 09:21 Dose: 40 mg Polyethylene Glycol (Miralax (For Daily Use) -) 17 gm PO DAILY [facility] Last Admin: 07/04/18 09:22 Dose: 17 gm Ranolazine (Ranexa -) 1,000 mg PO BID [facility] Last Admin: 07/04/18 09:20 Dose: 1,000 mg Rivaroxaban (Xarelto -) 20 mg PO DAILY@1800 [facility] Last Admin: 07/03/18 17:08 Dose: 20 mg Senna (Senna -) 2 tab PO HS PRN PRN Reason: CONSTIPATION Sotalol HCl (Betapace -) 80 mg PO TID [facility] Last Admin: 07/04/18 06:27 Dose: 80 mg Tamsulosin HCl (Flomax -) 0.4 mg PO DAILY@0800 [facility] Last Admin: 07/04/18 08:05 Dose: 0.4 mg Tiotropium [place] (Spiriva Respimat) 2 puff IH DAILY [facility] Last Admin: 07/04/18 09:44 Dose: 2 puff Tramadol HCl (Ultram -) 50 mg PO Q6H PRN PRN Reason: PAIN LEVEL 4 - 6 Last Admin: 07/04/18 09:22 Dose: 50 mg Valsartan (Diovan -) 40 mg PO DAILY [facility] Last Admin: 07/04/18 09:21 Dose: 40 mg - Objective Vital Signs: Vital Signs Temperature 97.7 F 07/04/18 09:19 Pulse Rate 69 07/04/18 09:19 Respiratory Rate 17 07/04/18 09:19 Blood Pressure 135/73 07/04/18 09:19 O2 Sat by Pulse Oximetry (%) 97 07/04/18 09:19 Constitutional: Yes: No Distress, Calm Cardiovascular: Yes: Regular Rate and Rhythm Respiratory: Yes: Regular Gastrointestinal: Yes: Normal Bowel Sounds, Soft Extremities: Yes: Erythema (Rt medial thigh erythema slightly less, no induration, +ttp) Neurological: Yes: Alert Labs: CBC, BMP 07/04/18 08:00 07/04/18 08:00 INR, PTT INR 1.27 (0.82-1.09) H 07/02/18 23:20 Microbiology 07/02/18 23:26 Blood - Peripheral Venous Blood Culture - Preliminary NO GROWTH OBTAINED AFTER 24 HOURS, INCUBATION TO CONTINUE FOR 4 DAYS. 07/02/18 23:26 Blood - Peripheral Venous Blood Culture - Preliminary NO GROWTH OBTAINED AFTER 24 HOURS, INCUBATION TO CONTINUE FOR 4 DAYS. Problem List - Problems (1) Cellulitis and abscess of right leg Code(s): L03.115 - CELLULITIS OF RIGHT LOWER LIMB; L02.415 - CUTANEOUS ABSCESS OF RIGHT LOWER LIMB (2) Atrial fibrillation Code(s): I48.91 - UNSPECIFIED ATRIAL FIBRILLATION Qualifiers: Atrial fibrillation type: paroxysmal Qualified Code(s): I48.0 - Paroxysmal atrial fibrillation (3) CAD (coronary artery disease) Code(s): I25.10 - ATHSCL HEART DISEASE OF [place] CORONARY ARTERY W/O ANG PCTRS Qualifiers: Coronary Disease-Associated Artery/Lesion type: [place] artery [place] vs. transplanted heart: [place] heart Associated angina: with stable angina Qualified Code(s): I25.118 - Atherosclerotic heart disease of [place] coronary artery with other forms of angina pectoris (4) CHF (congestive heart failure) Code(s): I50.9 - HEART FAILURE, UNSPECIFIED Qualifiers: Heart failure type: unspecified Heart failure chronicity: unspecified Qualified Code(s): I50.9 - Heart failure, unspecified (5) Diabetes Code(s): E11.9 - TYPE 2 DIABETES MELLITUS WITHOUT COMPLICATIONS Qualifiers: Diabetes mellitus type: type 2 Diabetes mellitus usp insulin use: without usp use Diabetes mellitus complication status: with neurologic complications Diabetes mellitus complication detail: with unspecified neuropathy Qualified Code(s): E11.40 - Type 2 diabetes mellitus with diabetic neuropathy, unspecified (6) HTN (hypertension) Code(s): I10 - ESSENTIAL (PRIMARY) HYPERTENSION Qualifiers: Hypertension type: essential hypertension Qualified Code(s): I10 - Essential (primary) hypertension (7) Hypercholesterolemia Code(s): E78.0 - PURE HYPERCHOLESTEROLEMIA * DO NOT USE * (8) Paroxysmal A-fib Code(s): I48.0 - PAROXYSMAL ATRIAL FIBRILLATION Assessment/Plan 62 y.o. male with PMH of DM, CAD, HTN, HLD, AFIB, COPD, PVD, hypothyroidism presenting with Rt medial thigh erythema, warmth, tenderness and mild induration x 4 days s/p laser vein ablation Rt thigh cellulitis - mild improvement Uncontrolled DM -- Continue IV antibiotics for now -- Monitor renal function. stable at this time. Plan is to switch to oral antibiotics if continues to improve
[2018-07-04] MEDS ORDERED: REFRIGERATED ANITBIOTICS ONE (11:06)
[2018-07-04] MEDS: VANCOMYCIN HCL 1,500 MG in SODIUM CHLORIDE 500 ML IVPB SCH ×2 (11:08→23:01)
[2018-07-04] MEDS ORDERED: VANCOMYCIN HCL 1,500 MG in DEXTROSE 5%-WATER - 500 ML IVPB SCH (12:00)
--- NOTE | 2018-07-04 12:13 | PN ---
Physical Exam: SUBJECTIVE: Patient seen and examined OBJECTIVE: Vital Signs Period Temp Pulse Resp BP Sys/Perez Pulse Ox Last 24 Hr 97.7 F-98.1 F 69-85 17-20 135-155/73-74 95-98 GENERAL: The patient is awake, alert, and fully oriented, in no acute distress. HEAD: Normal with no signs of trauma. EYES: PERRL, extraocular movements intact, sclera anicteric, conjunctiva clear. No ptosis. ENT: Ears normal, nares patent, oropharynx clear without exudates, moist mucous membranes. NECK: Trachea midline, full range of motion, supple. LUNGS: Breath sounds equal, clear to auscultation bilaterally, no wheezes, no crackles, no accessory muscle use. HEART: Regular rate and rhythm, S1, S2 without murmur, rub or gallop. ABDOMEN: Soft, nontender, nondistended, normoactive bowel sounds, no guarding, no rebound, no hepatosplenomegaly, no masses. EXTREMITIES: 2+ pulses, warm, well-perfused, no edema. NEUROLOGICAL: Cranial nerves II through XII grossly intact. Normal speech, gait not observed. PSYCH: Normal mood, normal affect. SKIN: Warm, dry, normal turgor, no rashes or lesions noted Laboratory Results - last 24 hr 07/03/18 07/03/18 07/04/18 16:40 20:43 06:26 WBC RBC Hgb Hct MCV MCH MCHC RDW Plt Count MPV Absolute Neuts (auto) Neutrophils % Lymphocytes % Monocytes % Eosinophils % Basophils % Sodium Potassium Chloride Carbon Dioxide Anion Gap BUN Creatinine Creat Clearance w eGFR POC Glucometer 285 269 252 Random Glucose Calcium Magnesium Total Bilirubin AST ALT Alkaline Phosphatase Total Protein Albumin 07/04/18 07/04/18 07/04/18 08:00 08:00 11:04 WBC 7.8 RBC 4.46 Hgb 13.7 Hct 41.6 MCV 93.2 MCH 30.6 MCHC 32.9 RDW 12.5 Plt Count 151 MPV 9.4 Absolute Neuts (auto) 5.0 Neutrophils % 64.8 Lymphocytes % 22.2 Monocytes % 8.8 Eosinophils % 3.5 Basophils % 0.7 Sodium 136 Potassium 4.1 Chloride 103 Carbon Dioxide 23 Anion Gap 10 BUN 12 Creatinine 0.6 Creat Clearance w eGFR > 60 POC Glucometer 329 Random Glucose 224 H Calcium 8.8 Magnesium 1.8 Total Bilirubin 0.8 AST 12 L ALT 14 Alkaline Phosphatase 111 D Total Protein 5.8 L Albumin 2.9 L Active Medications Generic Name Dose Route Start Last Admin Trade Name Freq PRN Reason Stop Dose Admin Acetaminophen 650 mg 07/03/18 10:43 07/03/18 11:32 Tylenol - PO 650 mg Q6H PRN Administration PAIN LEVEL 1-5 Atorvastatin Calcium 80 mg 07/03/18 22:00 07/03/18 21:04 Lipitor - PO 80 mg HS DOUGLAS Administration Bupropion HCl 150 mg 07/03/18 10:00 07/04/18 09:21 Wellbutrin Xl - PO 150 mg DAILY DOUGLAS Administration Ezetimibe 10 mg 07/03/18 22:00 07/03/18 21:05 Zetia - PO 10 mg HS DOUGLAS Administration Furosemide 20 mg 07/04/18 06:00 07/04/18 06:27 Lasix - PO 20 mg Q2D@0600 [facility]OUGLAS Administration Gabapentin 300 mg 07/03/18 22:00 07/04/18 06:27 Neurontin - PO 300 mg TID DOUGLAS Administration Vancomycin HCl 1,500 mg/ 500 mls @ 250 mls/hr 07/03/18 11:30 07/04/18 11:08 Sodium Chloride IVPB 250 mls/hr Q12H [facility]OUGLAS Administration Protocol Insulin Aspart 1 vial 07/04/18 07:00 07/04/18 11:08 Novolog Vial Sliding Scale - SQ 10 units ACHS [facility]OUGLAS Administration Protocol Insulin Detemir 50 units 07/04/18 07:00 07/04/18 06:33 Levemir Vial SQ 50 units DAILY@0700 [facility] Administration Levothyroxine Sodium 25 mcg 07/04/18 07:00 07/04/18 06:27 Synthroid - PO 25 mcg DAILY@0700 [facility]AS Administration Loratadine 10 mg 07/04/18 10:00 07/04/18 09:21 Claritin - PO 10 mg DAILY [facility] Administration Pantoprazole Sodium 40 mg 07/03/18 10:00 07/04/18 09:21 Protonix - PO 40 mg DAILY [facility]OU[facility]AS Administration Polyethylene Glycol 17 gm 07/03/18 11:45 07/04/18 09:22 Miralax (For Daily Use) - PO 17 gm DAILY [facility]OUGLAS Administration Ranolazine 1,000 mg 07/03/18 10:00 07/04/18 09:20 Ranexa - PO 1,000 mg BID [facility]OUGLAS Administration Rivaroxaban 20 mg 07/03/18 18:00 07/03/18 17:08 Xarelto - PO 20 mg DAILY@1800 DOUGLAS Administration Senna 2 tab 07/03/18 16:48 Senna - PO HS PRN CONSTIPATION Sotalol HCl 80 mg 07/03/18 06:00 07/04/18 06:27 Betapace - PO 80 mg TID DOUGLAS Administration Tamsulosin HCl 0.4 mg 07/03/18 08:00 07/04/18 08:05 Flomax - PO 0.4 mg DAILY@0800 [facility]OU[facility]AS Administration Tiotropium [place] 2 puff 07/03/18 10:00 07/04/18 09:44 Spiriva Respimat IH 2 puff DAILY [facility]OUGLAS Administration Tramadol HCl 50 mg 07/03/18 11:32 07/04/18 09:22 Ultram - PO 50 mg Q6H PRN Administration PAIN LEVEL 4 - 6 Valsartan 40 mg 07/04/18 10:00 07/04/18 09:21 Diovan - PO 40 mg DAILY DOUGLAS Administration ASSESSMENT/PLAN: Fredy Shine is a 62 yr old M, medical condition HTN, Afib, on xarelto, COPD, LIAN, DM, Hypothyrodism, admitted for Admitting Diagnosis Cellulitis of Right thigh Chronic Problems DM HTN CHf COPD Afib Hypothyroidism LIAN A/P #Cellulitis -improving -IV abt, vanc- can likely switch to PO abt tomorrow -lactic wnl -Blood cx no growth -ID note appreciated -afebrile, wbc wnl -pain mgt #DM, w/hyperglycemia -a1c 11.6 -monitor FS -ISC -diabetic diet -on levemir 50 units #HTN #Afib, chronic #CHF #HLD -on xarelto, sotalol, statin ranexa #Hypothyroidism -on synthroid #LIAN #COPD -c/w sprirva -pt uses Bipap at home-pt declined to have BIPAP set up. Full Code Dispo: requires inpatient treatment Visit type - Emergency Visit Emergency Visit: Yes ED Registration Date: 07/03/18 Care time: The patient presented to the Emergency Department on the above date and was hospitalized for further evaluation of their emergent condition. - New Patient This patient is new to me today: No - Critical Care Critical Care patient: No
[2018-07-04] MEDS: ACETAMINOPHEN 325 MG TABLET (FP) PO PRN ×2 (12:34→21:08)
[2018-07-04] MEDS: RIVAROXABAN 20 MG TABLET PO SCH (17:00)
[2018-07-04] MEDS: EZETIMIBE 10 MG TABLET (FP) PO SCH (21:02)
[2018-07-04] MEDS: ATORVASTATIN CA 80 MG TABLET (FP) PO SCH (21:02)
[2018-07-05] MEDS ORDERED: PT OWN MED DRAWER 7, Y5N ONE ×3 (05:36→21:14)
[2018-07-05] MEDS: SOTALOL HCL 80 MG TABLET (FP) PO SCH ×3 (06:23→21:27)
[2018-07-05] MEDS: LEVOTHYROXINE NA 25 MCG TABLET (FP) PO SCH (06:23)
[2018-07-05] MEDS: GABAPENTIN 300 MG CAPSULE (FP) PO SCH ×3 (06:23→21:26)
[2018-07-05] MEDS: INSULIN (LEVEMIR) 100 UNITS/ML UNITS SQ SCH (06:25)
[2018-07-05] MEDS: INSULIN SLIDING SCALE (NOVOLOG) 1 VIAL SQ SCH ×4 (06:25→21:27)
[2018-07-05 08:21] LABS: HEMATOCRIT 40.8 % (35.4-49); HEMOGLOBIN 13.9 GM/dl (11.7-16.9); MCH 31.5 pg (25.7-33.7); MEAN CELL VOLUME 92.7 fl (80-96); MEAN PLT VOLUME 9.4 fl (7.5-11.1); PLATELET COUNT 194 K/MM3 (134-434); RDW 12.3 % (11.9-15.9); WHITE BLOOD COUNT 7.7 K/mm3 (4.0-10.8)
[2018-07-05] MEDS: TAMSULOSIN HCL 0.4 MG CAP PO SCH (08:22)
[2018-07-05 08:24] LABS: ALK PHOS 119 U/L (45-117); ANION GAP 10 MMOL/L (8-16); BILIRUBIN,TOTAL 0.5 mg/dl (0.2-1); BLOOD UREA NITROGEN 12 mg/dl (7-18); CALCIUM 9.2 mg/dl (8.5-10); CHLORIDE 102 mmol/L (98-107); CO2 25 mmol/L (21-32); CREATININE 0.7 mg/dl (0.55-1.3); GLUCOSE,RANDOM 262 mg/dl (74-106); MAGNESIUM 1.8 mg/dL (1.8-2.4); POTASSIUM 4.2 mmol/L (3.5-5.1); SGOT/AST 12 U/L (15-37); SGPT/ALT 13 U/L (13-61); SODIUM 137 mmol/L (136-145); TOT PROT 6.2 g/dl (6.4-8.2)
[2018-07-05] MEDS: LORATADINE 10 MG TABLET PO SCH (10:00)
[2018-07-05] MEDS: RANOLAZINE E.R. 1,000 MG TABLET (FP) PO SCH ×2 (10:00→21:28)
[2018-07-05] MEDS: VALSARTAN 40 MG TABLET (FP) PO SCH (10:00)
[2018-07-05] MEDS: POLYETHYLENE GLYCOL 3350 119 GM BTL PO SCH (10:23)
[2018-07-05] MEDS: PANTOPRAZOLE 40 MG TABLET (FP) PO SCH (10:23)
[2018-07-05] MEDS: TIOTROPIUM BROMIDE 2.5 MCG (SPIRIVA) RESPIMAT INHALER IH SCH (10:25)
[2018-07-05] MEDS: VANCOMYCIN HCL 1,500 MG in SODIUM CHLORIDE 500 ML IVPB SCH ×2 (11:57→22:53)
--- NOTE | 2018-07-05 15:11 | PN ---
Progress Note, Physician - Current Medication List Current Medications: Active Medications Acetaminophen (Tylenol -) 650 mg PO Q6H PRN PRN Reason: PAIN LEVEL 1-5 Last Admin: 07/04/18 21:08 Dose: 650 mg Atorvastatin Calcium (Lipitor -) 80 mg PO [facility] Last Admin: 07/04/18 21:02 Dose: 80 mg Bupropion HCl (Wellbutrin Xl -) 150 mg PO DAILY [facility] Last Admin: 07/05/18 10:25 Dose: 150 mg Ezetimibe (Zetia -) 10 mg PO [facility] Last Admin: 07/04/18 21:02 Dose: 10 mg Furosemide (Lasix -) 20 mg PO Q2D@0600 [facility] Last Admin: 07/04/18 06:27 Dose: 20 mg Gabapentin (Neurontin -) 300 mg PO TID [facility] Last Admin: 07/05/18 06:23 Dose: 300 mg Vancomycin HCl 1,500 mg/ (Sodium Chloride) 500 mls @ 250 mls/hr IVPB Q12H [facility]; Protocol Last Admin: 07/05/18 11:57 Dose: 250 mls/hr Insulin Aspart (Novolog Vial Sliding Scale -) 1 vial SQ [facility]; Protocol Last Admin: 07/05/18 11:57 Dose: 10 units Insulin Detemir (Levemir Vial) 50 units SQ DAILY@0700 [facility] Last Admin: 07/05/18 06:25 Dose: 50 units Insulin Detemir (Levemir Vial) 20 units SQ [facility] Levothyroxine Sodium (Synthroid -) 25 mcg PO DAILY@0700 [facility] Last Admin: 07/05/18 06:23 Dose: 25 mcg Loratadine (Claritin -) 10 mg PO DAILY [facility] Last Admin: 07/05/18 10:00 Dose: 10 mg Pantoprazole Sodium (Protonix -) 40 mg PO DAILY [facility] Last Admin: 07/05/18 10:23 Dose: 40 mg Polyethylene Glycol (Miralax (For Daily Use) -) 17 gm PO DAILY [facility] Last Admin: 07/05/18 10:23 Dose: 17 gm Ranolazine (Ranexa -) 1,000 mg PO BID [facility] Last Admin: 07/05/18 10:00 Dose: 1,000 mg Rivaroxaban (Xarelto -) 20 mg PO DAILY@1800 [facility] Last Admin: 07/04/18 17:00 Dose: 20 mg Senna (Senna -) 2 tab PO HS PRN PRN Reason: CONSTIPATION Sotalol HCl (Betapace -) 80 mg PO TID [facility] Last Admin: 07/05/18 06:23 Dose: 80 mg Tamsulosin HCl (Flomax -) 0.4 mg PO DAILY@0800 [facility] Last Admin: 07/05/18 08:22 Dose: 0.4 mg Tiotropium [place] (Spiriva Respimat) 2 puff IH DAILY [facility] Last Admin: 07/05/18 10:25 Dose: 2 puff Tramadol HCl (Ultram -) 50 mg PO Q6H PRN PRN Reason: PAIN LEVEL 4 - 6 Last Admin: 07/04/18 19:13 Dose: 50 mg Valsartan (Diovan -) 40 mg PO DAILY [facility] Last Admin: 07/05/18 10:00 Dose: 40 mg - Objective Vital Signs: Vital Signs Temperature 97.6 F 07/05/18 14:23 Pulse Rate 65 07/05/18 14:23 Respiratory Rate 18 07/05/18 14:23 Blood Pressure 140/72 07/05/18 14:23 O2 Sat by Pulse Oximetry (%) 97 07/05/18 14:23 Labs: CBC, BMP 07/05/18 07:15 07/05/18 07:15 INR, PTT INR 1.27 (0.82-1.09) H 07/02/18 23:20
--- NOTE | 2018-07-05 16:06 | PN ---
Physical Exam: SUBJECTIVE: Patient seen and examined. Complaining of pain in right inner thigh , worse with movement. OBJECTIVE: Vital Signs Period Temp Pulse Resp BP Sys/Perez Pulse Ox Last 24 Hr 97.6 F-98.1 F 65-72 18-20 138-143/71-81 96-97 GENERAL: The patient is awake, alert, and fully oriented, in no acute distress. LUNGS: Breath sounds equal, clear to auscultation bilaterally, no wheezes, no crackles, no accessory muscle use. HEART: Regular rate and rhythm, S1, S2 without murmur, rub or gallop. ABDOMEN: Soft, nontender, nondistended, normoactive bowel sounds RIGHT LOWER EXTREMITY: 2+ pulses, warm, well-perfused, no edema; inner thigh and groin with mild erythema, no warmth, no fluctuance and small palpable cord- like density; dressing removed from lower leg injection site, well-healed puncture jorge alberto, no erythema, no warmth, no sign of infection NEUROLOGICAL: Cranial nerves II through XII grossly intact. Normal speech, gait not observed. Laboratory Results - last 24 hr 07/04/18 07/04/18 07/04/18 16:52 20:45 22:10 WBC RBC Hgb Hct MCV MCH MCHC RDW Plt Count MPV Sodium Potassium Chloride Carbon Dioxide Anion Gap BUN Creatinine Creat Clearance w eGFR POC Glucometer 261 319 Random Glucose Calcium Magnesium Total Bilirubin AST ALT Alkaline Phosphatase Total Protein Albumin Vancomycin Pre-Dose 9.6 L 07/05/18 07/05/18 07/05/18 06:20 07:15 07:15 WBC 7.7 RBC 4.40 Hgb 13.9 Hct 40.8 MCV 92.7 MCH 31.5 MCHC 34.0 RDW 12.3 Plt Count 194 D MPV 9.4 Sodium 137 Potassium 4.2 Chloride 102 Carbon Dioxide 25 Anion Gap 10 BUN 12 Creatinine 0.7 Creat Clearance w eGFR > 60 POC Glucometer 257 Random Glucose 262 H Calcium 9.2 Magnesium 1.8 Total Bilirubin 0.5 AST 12 L ALT 13 Alkaline Phosphatase 119 H Total Protein 6.2 L Albumin 3.0 L Vancomycin Pre-Dose 07/05/18 11:38 WBC RBC Hgb Hct MCV MCH MCHC RDW Plt Count MPV Sodium Potassium Chloride Carbon Dioxide Anion Gap BUN Creatinine Creat Clearance w eGFR POC Glucometer 323 Random Glucose Calcium Magnesium Total Bilirubin AST ALT Alkaline Phosphatase Total Protein Albumin Vancomycin Pre-Dose Active Medications Generic Name Dose Route Start Last Admin Trade Name Freq PRN Reason Stop Dose Admin Acetaminophen 650 mg 07/03/18 10:43 07/04/18 21:08 Tylenol - PO 650 mg Q6H PRN Administration PAIN LEVEL 1-5 Atorvastatin Calcium 80 mg 07/03/18 22:00 07/04/18 21:02 Lipitor - PO 80 mg HS [facility] Administration Bupropion HCl 150 mg 07/03/18 10:00 07/05/18 10:25 Wellbutrin Xl - PO 150 mg DAILY DOUGLAS Administration Ezetimibe 10 mg 07/03/18 22:00 07/04/18 21:02 Zetia - PO 10 mg HS [facility] Administration Furosemide 20 mg 07/04/18 06:00 07/04/18 06:27 Lasix - PO 20 mg Q2D@0600 DOUGLAS Administration Gabapentin 300 mg 07/03/18 22:00 07/05/18 06:23 Neurontin - PO 300 mg TID DOUGLAS Administration Vancomycin HCl 1,500 mg/ 500 mls @ 250 mls/hr 07/03/18 11:30 07/05/18 11:57 Sodium Chloride IVPB 250 mls/hr Q12H [facility] Administration Protocol Insulin Aspart 1 vial 07/04/18 07:00 07/05/18 11:57 Novolog Vial Sliding Scale - SQ 10 units ACHS [facility] Administration Protocol Insulin Detemir 50 units 07/04/18 07:00 07/05/18 06:25 Levemir Vial SQ 50 units DAILY@0700 [facility] Administration Insulin Detemir 20 units 07/05/18 22:00 Levemir Vial SQ HS [facility] Levothyroxine Sodium 25 mcg 07/04/18 07:00 07/05/18 06:23 Synthroid - PO 25 mcg DAILY@0700 [facility] Administration Loratadine 10 mg 07/04/18 10:00 07/05/18 10:00 Claritin - PO 10 mg DAILY DOUGLAS Administration Pantoprazole Sodium 40 mg 07/03/18 10:00 07/05/18 10:23 Protonix - PO 40 mg DAILY DOUGLAS Administration Polyethylene Glycol 17 gm 07/03/18 11:45 07/05/18 10:23 Miralax (For Daily Use) - PO 17 gm DAILY [facility] Administration Ranolazine 1,000 mg 07/05/18 10:00 02/04/19 10:00 Ranexa - PO 1,000 mg BID DOUGLAS Administration Rivaroxaban 20 mg 07/03/18 18:00 07/04/18 17:00 Xarelto - PO 20 mg DAILY@1800 D[facility] Administration Senna 2 tab 07/03/18 16:48 Senna - PO HS PRN CONSTIPATION Sotalol HCl 80 mg 07/03/18 06:00 07/05/18 06:23 Betapace - PO 80 mg TID DOUGLAS Administration Tamsulosin HCl 0.4 mg 07/03/18 08:00 07/05/18 08:22 Flomax - PO 0.4 mg DAILY@0800 [facility] Administration Tiotropium [place] 2 puff 07/03/18 10:00 07/05/18 10:25 Spiriva Respimat IH 2 puff DAILY [facility]AS Administration Tramadol HCl 50 mg 07/03/18 11:32 07/04/18 19:13 Ultram - PO 50 mg Q6H PRN Administration PAIN LEVEL 4 - 6 Valsartan 40 mg 07/04/18 10:00 07/05/18 10:00 Diovan - PO 40 mg DAILY DOUGLAS Administration ASSESSMENT/PLAN: 62 year-old male with a PMH significant for HTN, HLD, non-obstructive CAD, CHF, paroxysmal afib on Xarelto, COPD, Type II IDDM, PVD, and hypothyroidism. Admitted for cellulitis of RLE following laser vein ablation. Peripheral vascular disease RLE cellulitis --has been afebrile, no leukocytosis, cultures NGTD --continue vanco (day #4) --duplex neg for DVT --US to r/o abscess/collection pending Poorly-controlled IDDM Diabetic lower extremity neuropathy --HgbA1C 11.6% --Novolog sliding scale coverage --seen and evaluated by Dr. Garza, Levemir adjusted Paroxysmal atrial fibrillation --rate well-controlled, continue sotalol --continue Xarelto Hypertension --BP stable --continue valsartan Hyperlipidemia --continue Lipitor, Zetia Non-obstructive coronary artery disease --continue Ranexa Diastolic dysfunction without LV failure --euvolemic --not on home diuretics Hypothyroidism --continue levothyroxine COPD --no acute issues --continue Spiriva FEN Fluids: PO intake adequate Electrolytes: replete as indicated Nutrition: diabetic, low sodium DVT prophylaxis: on Xarelto Physical therapy Dispo: continues to require inpatient care. Full code. Visit type - Emergency Visit Emergency Visit: Yes ED Registration Date: 07/03/18 Care time: The patient presented to the Emergency Department on the above date and was hospitalized for further evaluation of their emergent condition. - New Patient This patient is new to me today: Yes Date on this admission: 07/05/18 - Critical Care Critical Care patient: No
[2018-07-05] MEDS: RIVAROXABAN 20 MG TABLET PO SCH (17:54)
--- NOTE | 2018-07-05 19:22 | CONSULT ---
Consult Consult Specialty:: Vascular Surgery Reason for Consultation:: RLE swelling and cellulitis - History Source Limitations to Obtaining History: No Limitations - Past Medical History Cardio/Vascular: Yes: AFIB, CAD (Non-obstructive), HTN, Hyperlipdemia Pulmonary: Yes: COPD, Sleep Apnea Gastrointestinal: Yes: GERD Endocrine: Yes: Diabetes Mellitus - Past Surgical History Past Surgical History: Yes: Tonsillectomy - Alcohol/Substance Use Hx Alcohol Use: Yes (OCCAS.) - Smoking History Smoking history: Current every day smoker Have you smoked in the past 12 months: Yes Aproximately how many cigarettes per day: 10 If you are a former smoker, when did you quit?: On Chantix - Social History Usual Living Arrangement: Alone (alone in basement apartment with 7 steps to enter, previously Independent in ADLs without Assistive Device and has 2 sister nearby who assist as needed) Home Medications - Allergies Allergies/Adverse Reactions: Allergies Allergy/AdvReac Type Severity Reaction Status Date / Time No Known Allergies Allergy Verified 05/21/18 19:52 - Home Medications Home Medications: Ambulatory Orders Omeprazole 40 mg PO DAILY 04/29/17 Tiotropium [place] [Spiriva] 1 inh PO DAILY 02/16/18 Atorvastatin Ca [Lipitor] 80 mg PO DAILY 04/09/18 Acetaminophen [Tylenol .Regular Strength -] 650 mg PO Q6H PRN tablet 04/11/18 Bupropion HCl [Wellbutrin Xl -] 150 mg PO DAILY tab.sr.24h 04/11/18 Docusate Sodium [Colace -] 300 mg PO HS #30 capsule 04/11/18 Ezetimibe [Zetia -] 10 mg PO HS tablet 04/11/18 Polyethylene Glycol 3350 [Miralax 119 gm Btl -] 17 gm PO DAILY #1 bottle Sennosides [Senna -] 2 tab PO HS PRN #60 tablet 04/11/18 Tamsulosin HCl [Flomax -] 0.4 mg PO DAILY@0800 cap.er.24h 04/11/18 Furosemide [Lasix] 20 mg PO ASDIR MDD every other day 07/03/18 Gabapentin 300 mg PO TID 07/03/18 Insulin Detemir [Levemir Flextouch] 50 unit SQ AM 07/03/18 Insulin Lispro [Humalog] 10 unit SQ ACHS 07/03/18 Levothyroxine [Synthroid -] 25 mcg PO DAILY 07/03/18 Loratadine 10 mg PO DAILY 07/03/18 Potassium Chloride [K-Tab ER] 20 meq PO DAILY 07/03/18 Ranolazine [Ranexa -] 1,000 mg PO BID 07/03/18 Rivaroxaban [Xarelto -] 20 mg PO AM 07/03/18 Sotalol HCl [Betapace -] 80 mg PO TID 07/03/18 Valsartan 40 mg PO 07/03/18 Family Disease History - Family Disease History Family Disease History: CA: Father (gastric cancer) Review of Systems - Review of Systems Constitutional: reports: No Symptoms Eyes: reports: No Symptoms HENT: reports: No Symptoms Neck: reports: No Symptoms Cardiovascular: reports: No Symptoms Respiratory: reports: No Symptoms Gastrointestinal: reports: No Symptoms Genitourinary: reports: No Symptoms Musculoskeletal: reports: No Symptoms Integumentary: reports: No Symptoms Neurological: reports: No Symptoms Endocrine: reports: No Symptoms Hematology/Lymphatic: reports: No Symptoms Psychiatric: reports: No Symptoms Physical Exam Vital Signs: Vital Signs Temperature 97.6 F 07/05/18 14:23 Pulse Rate 65 07/05/18 14:23 Respiratory Rate 18 07/05/18 14:23 Blood Pressure 140/72 07/05/18 14:23 O2 Sat by Pulse Oximetry (%) 97 07/05/18 14:23 Constitutional: Yes: Well Nourished, No Distress, Calm Eyes: Yes: WNL, Conjunctiva Clear, EOM Intact HENT: Yes: WNL, Atraumatic, Normocephalic Neck: Yes: WNL, Supple, Trachea Midline Cardiovascular: Yes: WNL, Regular Rate and Rhythm Respiratory: Yes: WNL, Regular, CTA Bilaterally Gastrointestinal: Yes: WNL, Normal Bowel Sounds ...Rectal Exam: Yes: WNL Renal/: Yes: WNL Breast(s): Yes: WNL Musculoskeletal: Yes: WNL Extremities: Yes: WNL Edema: Yes Peripheral Pulses WNL: Yes Integumentary: Yes: WNL Neurological: Yes: WNL, Alert, Oriented ...Motor Strength: WNL Psychiatric: Yes: WNL Labs: CBC, BMP 07/05/18 07:15 07/05/18 07:15 Problem List - Problems (1) Cellulitis Assessment/Plan: S/P venaseal of left greater saphenous vein. Pt with inflammatory reaction. Please treat with prednisone 10mg po bid. Leg looks good. Can be DC home joaquim on mederol dose inocencio. Will follow up thursday in wound care clinic at [place]. Jez Fonseca DO Code(s): L03.90 - CELLULITIS, UNSPECIFIED
[2018-07-05] MEDS: EZETIMIBE 10 MG TABLET (FP) PO SCH (21:26)
[2018-07-05] MEDS: ATORVASTATIN CA 80 MG TABLET (FP) PO SCH (21:26)
[2018-07-05] MEDS: predniSONE 10 MG TABLET (UD) PO SCH (21:27)
[2018-07-05] MEDS ORDERED: INSULIN (LEVEMIR) 100 UNITS/ML UNITS SQ SCH (22:00)
[2018-07-06] MEDS: traMADol HCL 50 MG TABLET PO PRN (03:02)
[2018-07-06 06:19] VITALS: BP 122/70; PULSE 74; TEMP 97.8
[2018-07-06] MEDS ORDERED: PT OWN MED DRAWER 7, Y5N ONE ×2 (06:29→09:20)
[2018-07-06] MEDS: SOTALOL HCL 80 MG TABLET (FP) PO SCH (06:41)
[2018-07-06] MEDS: INSULIN SLIDING SCALE (NOVOLOG) 1 VIAL SQ SCH ×2 (06:42→11:04)
[2018-07-06] MEDS: GABAPENTIN 300 MG CAPSULE (FP) PO SCH (06:42)
[2018-07-06] MEDS: FUROSEMIDE 20 MG TABLET (FP) PO SCH (06:42)
[2018-07-06] MEDS: INSULIN (LEVEMIR) 100 UNITS/ML UNITS SQ SCH (06:42)
[2018-07-06] MEDS: LEVOTHYROXINE NA 25 MCG TABLET (FP) PO SCH (06:42)
--- NOTE | 2018-07-06 08:23 | DS ---
Physical Exam: SUBJECTIVE: Patient seen and examined OBJECTIVE: Vital Signs Period Temp Pulse Resp BP Sys/Perez Pulse Ox Last 24 Hr 97.6 F-99.0 F 60-74 17-18 115-143/67-81 95-98 PHYSICAL EXAM GENERAL: The patient is awake, alert, and fully oriented, in no acute distress. LUNGS: Breath sounds equal, clear to auscultation bilaterally, no wheezes, no crackles, no accessory muscle use. HEART: Regular rate and rhythm, S1, S2 without murmur, rub or gallop. ABDOMEN: Soft, nontender, nondistended, normoactive bowel sounds RIGHT LOWER EXTREMITY: 2+ pulses, warm, well-perfused, no edema; inner thigh and groin erythema has resolved; palpable cord-like density NEUROLOGICAL: Cranial nerves II through XII grossly intact. Normal speech, gait not observed. LABS Laboratory Results - last 24 hr 07/05/18 07/05/18 07/05/18 07:15 07:15 11:38 WBC 7.7 RBC 4.40 Hgb 13.9 Hct 40.8 MCV 92.7 MCH 31.5 MCHC 34.0 RDW 12.3 Plt Count 194 D MPV 9.4 Sodium 137 Potassium 4.2 Chloride 102 Carbon Dioxide 25 Anion Gap 10 BUN 12 Creatinine 0.7 Creat Clearance w eGFR > 60 POC Glucometer 323 Random Glucose 262 H Calcium 9.2 Magnesium 1.8 Total Bilirubin 0.5 AST 12 L ALT 13 Alkaline Phosphatase 119 H Total Protein 6.2 L Albumin 3.0 L 07/05/18 07/06/18 21:23 05:48 WBC RBC Hgb Hct MCV MCH MCHC RDW Plt Count MPV Sodium Potassium Chloride Carbon Dioxide Anion Gap BUN Creatinine Creat Clearance w eGFR POC Glucometer 246 268 Random Glucose Calcium Magnesium Total Bilirubin AST ALT Alkaline Phosphatase Total Protein Albumin HOSPITAL COURSE: Date of Admission:07/03/18 Date of Discharge: 07/06/18 Pre hospital course Patient is a 62 year-old male with a PMH significant for HTN, HLD, non- obstructive CAD, CHF, paroxysmal afib on Xarelto, COPD, Type II IDDM, PVD, and hypothyroidism. Presented to ED c/o redness, swelling, and pain to his right inner thigh to his right knee for 4 days. Patient notes that he had a laser vein ablation on [place] (5 days ago), and the day following his procedure he began experiencing redness, swelling, and pain, which has been progressively worsening. He notes that the pain/redness/swelling is most prominent on the posterior aspect of his knee and radiates up into his right inner thigh. ER course (1) Blood sugar 492 (2) afebrile, no leukocytes (3) redness to inner right thigh Subsequent hospital course by problem list 62 year-old male with Admitted for cellulitis of RLE following laser vein ablation. Peripheral vascular disease s/p venaseal of left greater saphenous vein RLE cellulitis v. post-procedure inflammation --afebrile, no leukocytosis throughout hospital stay, cultures negative --treated with vanco x 4 days --duplex neg for DVT --US to r/o abscess/collection: negative --per vascular, this is an inflammatory reaction to venaseal; started prednisone 10mg BID, continue for 5 days Poorly-controlled IDDM Diabetic lower extremity neuropathy --HgbA1C 11.6% --Novolog sliding scale coverage --seen and evaluated by Gillian Hawkins adjusted; discharged on 50mg QAM, no evening dose Paroxysmal atrial fibrillation --rate well-controlled, continued sotalol --continued Xarelto Hypertension --BP stable --continued valsartan Hyperlipidemia --continued Lipitor, Zetia Non-obstructive coronary artery disease --continued Ranexa Diastolic dysfunction without LV failure --euvolemic --not on home diuretics Hypothyroidism --continued levothyroxine COPD --no acute issues --continued Spiriva Minutes to complete discharge: 35 Discharge Summary Reason For Visit: CELLULITIS/ABSCESS R/LOWER EXTREMITY Current Active Problems Cellulitis (Acute) Cellulitis and abscess of right leg (Acute) Type 2 diabetes mellitus with hyperosmolarity without nonketotic hyperglycemic- hyperosmolar coma ([facility]) (Acute) Condition: Improved - Instructions Diet, Activity, Other Instructions: A prescription has been sent to your pharmacy for prednisone. Take this medication as directed and be sure to finish all the medication. Please follow up with Dr. Fonseca as you discussed with him. Referrals: Dirk Garza MD [Primary Care Provider] - Jez Fonseca MD [Staff Physician] - Disposition: HOME - Home Medications Comprehensive Discharge Medication List: Ambulatory Orders Omeprazole 40 mg PO DAILY 04/29/17 Tiotropium [place] [Spiriva] 1 inh PO DAILY 02/16/18 Atorvastatin Ca [Lipitor] 80 mg PO DAILY 04/09/18 Acetaminophen [Tylenol .Regular Strength -] 650 mg PO Q6H PRN tablet 04/11/18 Bupropion HCl [Wellbutrin Xl -] 150 mg PO DAILY tab.sr.24h 04/11/18 Docusate Sodium [Colace -] 300 mg PO HS #30 capsule 04/11/18 Ezetimibe [Zetia -] 10 mg PO HS tablet 04/11/18 Polyethylene Glycol 3350 [Miralax 119 gm Btl -] 17 gm PO DAILY #1 bottle Sennosides [Senna -] 2 tab PO HS PRN #60 tablet 04/11/18 Tamsulosin HCl [Flomax -] 0.4 mg PO DAILY@0800 cap.er.24h 04/11/18 Furosemide [Lasix] 20 mg PO ASDIR MDD every other day 07/03/18 Gabapentin 300 mg PO TID 07/03/18 Insulin Detemir [Levemir Flextouch] 50 unit SQ AM 07/03/18 Insulin Lispro [Humalog] 10 unit SQ ACHS 07/03/18 Levothyroxine [Synthroid -] 25 mcg PO DAILY 07/03/18 Loratadine 10 mg PO DAILY 07/03/18 Potassium Chloride [K-Tab ER] 20 meq PO DAILY 07/03/18 Ranolazine [Ranexa -] 1,000 mg PO BID 07/03/18 Rivaroxaban [Xarelto -] 20 mg PO AM 07/03/18 Sotalol HCl [Betapace -] 80 mg PO TID 07/03/18 Valsartan 40 mg PO 07/03/18 Insulin (Levemir) [Levemir Vial] 20 units SQ HS units 07/06/18 predniSONE [Deltasone -] 10 mg PO BID #8 tablet 07/06/18 This patient is new to me today: No Emergency Visit: Yes ED Registration Date: 07/03/18 Care time: The patient presented to the Emergency Department on the above date and was hospitalized for further evaluation of their emergent condition. Critical Care patient: No - Discharge Referral Referred to [facility] Yes Physician Referral: Jez Fonseca DO ([facility])
[2018-07-06] MEDS: TAMSULOSIN HCL 0.4 MG CAP PO SCH (08:40)
[2018-07-06] MEDS: ACETAMINOPHEN 325 MG TABLET (FP) PO PRN (08:40)
[2018-07-06] MEDS: predniSONE 10 MG TABLET (UD) PO SCH (09:25)
[2018-07-06] MEDS: PANTOPRAZOLE 40 MG TABLET (FP) PO SCH (09:25)
[2018-07-06] MEDS: LORATADINE 10 MG TABLET PO SCH (09:26)
[2018-07-06] MEDS: POLYETHYLENE GLYCOL 3350 119 GM BTL PO SCH (09:27)
[2018-07-06] MEDS: VALSARTAN 40 MG TABLET (FP) PO SCH (09:27)
[2018-07-06] MEDS: RANOLAZINE E.R. 1,000 MG TABLET (FP) PO SCH (09:28)
[2018-07-06] MEDS: TIOTROPIUM BROMIDE 2.5 MCG (SPIRIVA) RESPIMAT INHALER IH SCH (09:29)
[2018-07-06] MEDS: VANCOMYCIN HCL 1,500 MG in SODIUM CHLORIDE 500 ML IVPB SCH (11:56)
--- NOTE | 2018-07-06 12:52 | PN ---
Progress Note, Physician Chief Complaint: leg swelling resolving walking and has min pain History of Present Illness: dm2,ashd,afib ashd,cad,htn,hld has clinically improved cellulitis resolving - Current Medication List Current Medications: Active Medications Acetaminophen (Tylenol -) 650 mg PO Q6H PRN PRN Reason: PAIN LEVEL 1-5 Last Admin: 07/06/18 08:40 Dose: 650 mg Atorvastatin Calcium (Lipitor -) 80 mg PO [facility] Last Admin: 07/05/18 21:26 Dose: 80 mg Bupropion HCl (Wellbutrin Xl -) 150 mg PO DAILY [facility] Last Admin: 07/06/18 09:25 Dose: 150 mg Ezetimibe (Zetia -) 10 mg PO [facility] Last Admin: 07/05/18 21:26 Dose: 10 mg Furosemide (Lasix -) 20 mg PO Q2D@0600 [facility] Last Admin: 07/06/18 06:42 Dose: 20 mg Gabapentin (Neurontin -) 300 mg PO TID [facility] Last Admin: 07/06/18 06:42 Dose: 300 mg Vancomycin HCl 1,500 mg/ (Sodium Chloride) 500 mls @ 250 mls/hr IVPB Q12H [facility]; Protocol Last Admin: 07/06/18 11:56 Dose: 250 mls/hr Insulin Aspart (Novolog Vial Sliding Scale -) 1 vial SQ ACHS [facility]; Protocol Last Admin: 07/06/18 11:04 Dose: 10 units Insulin Detemir (Levemir Vial) 50 units SQ DAILY@0700 [facility] Last Admin: 07/06/18 06:42 Dose: 50 units Insulin Detemir (Levemir Vial) 20 units SQ [facility] Last Admin: 07/05/18 21:27 Dose: 20 units Levothyroxine Sodium (Synthroid -) 25 mcg PO DAILY@0700 [facility] Last Admin: 07/06/18 06:42 Dose: 25 mcg Loratadine (Claritin -) 10 mg PO DAILY [facility] Last Admin: 07/06/18 09:26 Dose: 10 mg Pantoprazole Sodium (Protonix -) 40 mg PO DAILY [facility] Last Admin: 07/06/18 09:25 Dose: 40 mg Polyethylene Glycol (Miralax (For Daily Use) -) 17 gm PO DAILY [facility] Last Admin: 07/06/18 09:27 Dose: 17 gm Prednisone (Deltasone -) 10 mg PO BID [facility] Stop: 07/10/18 10:01 Last Admin: 07/06/18 09:25 Dose: 10 mg Ranolazine (Ranexa -) 1,000 mg PO BID [facility] Last Admin: 07/06/18 09:28 Dose: 1,000 mg Rivaroxaban (Xarelto -) 20 mg PO DAILY@1800 [facility] Last Admin: 07/05/18 17:54 Dose: 20 mg Senna (Senna -) 2 tab PO HS PRN PRN Reason: CONSTIPATION Sotalol HCl (Betapace -) 80 mg PO TID [facility] Last Admin: 07/06/18 06:41 Dose: 80 mg Tamsulosin HCl (Flomax -) 0.4 mg PO DAILY@0800 [facility] Last Admin: 07/06/18 08:40 Dose: 0.4 mg Tiotropium [place] (Spiriva Respimat) 2 puff IH DAILY [facility] Last Admin: 07/06/18 09:29 Dose: 2 puff Valsartan (Diovan -) 40 mg PO DAILY [facility] Last Admin: 07/06/18 09:27 Dose: 40 mg - Objective Vital Signs: Vital Signs Temperature 97.8 F 07/06/18 06:16 Pulse Rate 74 07/06/18 06:16 Respiratory Rate 18 07/06/18 08:20 Blood Pressure 122/70 07/06/18 06:16 O2 Sat by Pulse Oximetry (%) 97 07/06/18 08:20 Constitutional: Yes: Calm Eyes: Yes: EOM Intact HENT: Yes: Normocephalic Neck: Yes: Trachea Midline Cardiovascular: Yes: Pulse Irregular Respiratory: Yes: CTA Bilaterally Gastrointestinal: Yes: Normal Bowel Sounds ...Rectal Exam: Yes: Deferred Genitourinary: Yes: WNL Musculoskeletal: Yes: Back Pain Extremities: Yes: Delayed Capillary Refill Edema: RLE: Trace Integumentary: Yes: Venous Stasis Changes Neurological: Yes: Alert, Oriented Labs: CBC, BMP 07/05/18 07:15 07/05/18 07:15 INR, PTT INR 1.27 (0.82-1.09) H 07/02/18 23:20 Problem List - Problems (1) Type 2 diabetes mellitus with hyperosmolarity without nonketotic hyperglycemic-hyperosmolar coma ([facility]) Code(s): E11.00 - TYPE 2 DIAB W HYPROSM W/O NONKET HYPRGLY-HYPROS COMA ([facility]) (2) Cellulitis and abscess of right leg Code(s): L03.115 - CELLULITIS OF RIGHT LOWER LIMB; L02.415 - CUTANEOUS ABSCESS OF RIGHT LOWER LIMB (3) Abdominal pain Code(s): R10.9 - UNSPECIFIED ABDOMINAL PAIN (4) Acute gastroenteritis Code(s): K52.9 - NONINFECTIVE GASTROENTERITIS AND COLITIS, UNSPECIFIED (5) Atrial fibrillation Code(s): I48.91 - UNSPECIFIED ATRIAL FIBRILLATION Qualifiers: Atrial fibrillation type: paroxysmal Qualified Code(s): I48.0 - Paroxysmal atrial fibrillation (6) BPH (benign prostatic hyperplasia) Code(s): N40.0 - BENIGN PROSTATIC HYPERPLASIA WITHOUT LOWER URINRY TRACT SYMP (7) Back pain Code(s): M54.9 - DORSALGIA, UNSPECIFIED (8) CAD (coronary artery disease) Code(s): I25.10 - ATHSCL HEART DISEASE OF [place] CORONARY ARTERY W/O ANG PCTRS Qualifiers: Coronary Disease-Associated Artery/Lesion type: [place] artery [place] vs. transplanted heart: [place] heart Associated angina: with stable angina Qualified Code(s): I25.118 - Atherosclerotic heart disease of [place] coronary artery with other forms of angina pectoris Assessment/Plan Current Active Problems Cellulitis (Acute) Cellulitis and abscess of right leg (Acute) Type 2 diabetes mellitus with hyperosmolarity without nonketotic hyperglycemic- hyperosmolar coma ([facility]) (Acute) Laboratory Results - last 24 hr 07/05/18 07/05/18 07/06/18 11:38 21:23 05:48 POC Glucometer 323 246 268 07/06/18 10:52 POC Glucometer 343 plan: continue with levemir am dose novolog achs dc follow up with vascular thursday health educator and nutrition consult dchome today
== END 2018-07-06 12:35 | disposition home or self-care (01) | DRG 919 ==
LOC: FER 20:21 → FM/S 07-03 02:45
PROVIDERS: ADMIT Internal Medicine; ATTEND Nurse Practitioner Acute Care
DX: L76.82 Other postprocedural complications of skin and subcutaneous tissue (principal); E11.00 Type 2 diabetes mellitus with hyperosmolarity without nonketotic hyperglycemic-hyperosmolar coma (NKHHC); L03.115 Cellulitis of right lower limb; E11.65 Type 2 diabetes mellitus with hyperglycemia; E11.40 Type 2 diabetes mellitus with diabetic neuropathy, unspecified; I48.0 Paroxysmal atrial fibrillation; J44.9 Chronic obstructive pulmonary disease, unspecified; I73.9 Peripheral vascular disease, unspecified; Y83.9 Surgical procedure, unspecified as the cause of abnormal reaction of the patient, or of later complication, without mention of misadventure at the time of the procedure; N40.0 Benign prostatic hyperplasia without lower urinary tract symptoms; E78.5 Hyperlipidemia, unspecified; I25.10 Atherosclerotic heart disease of native coronary artery without angina pectoris; E03.9 Hypothyroidism, unspecified; Z79.4 Long term (current) use of insulin; I11.0 Hypertensive heart disease with heart failure; I50.9 Heart failure, unspecified; F17.210 Nicotine dependence, cigarettes, uncomplicated
CPT/HCPCS: 36415; 76882-TC-RT-FY; 80048; 80053; 82962; 83036; 83605; 83735; 85025; 85027; 85610; 87040; 93005; 93971-TC; 97116-GP; 97161-GP; 99283-25; G0480

== ENCOUNTER 2018-11-18 08:11 | Day surgery (SDC) | payer OTHER ==
[2018-11-17 16:11] VITALS: BMI 34.7
[2018-11-18 12:02] VITALS: BP 128/73; PULSE 80; TEMP 98.3
--- NOTE | 2018-11-19 16:57 | PATH ---
Surgical Pathology Report Patient Name: LENY MONTGOMERY [facility]. Rec. #: [id number] /Age/Gender: 1955 (Age: 63) / M Account: [id number] Location: U-ENDOSCOPY Taken: 11/18/2018 Received: 11/18/2018 Reported: 11/19/2018 Physicians: Reno Soto M.D. Specimen(s) Received CECAL POLYP Clinical History Change in bowel habits Postoperative diagnosis: Colon polyp, poor prep Final Diagnosis CECAL POLYP, BIOPSY: TUBULAR ADENOMA. Electronically Signed Izabela Leos M.D. Gross Description Received in formalin, labeled "biopsy cecal polyp" is a muñoz, irregular portion of soft tissue measuring 0.5 cm. in greatest dimension. The specimen is submitted in toto in one cassette. /11/18/2018 saudi11/18/2018
== END 2018-11-18 11:50 | disposition home or self-care (01) ==
LOC: JASU-ENDO 08:11
PROVIDERS: ATTEND Internal Medicine Gastroenterology
PROC: 0DBH8ZX Excision of Cecum, Via Natural or Artificial Opening Endoscopic, Diagnostic (ICD-10-PCS; principal; 2018-11-18 09:30)
DX: Z12.11 Encounter for screening for malignant neoplasm of colon (principal); D12.0 Benign neoplasm of cecum; I10 Essential (primary) hypertension; E11.9 Type 2 diabetes mellitus without complications
CPT/HCPCS: 88305-TC

== ENCOUNTER 2019-01-20 23:36 | Emergency (ER) | payer OTHER ==
[2019-01-20 23:43] VITALS: BP 148/94; PULSE 79; TEMP 98; BMI 32.5
--- NOTE | 2019-01-21 00:22 | PDOC ---
Documentation entered by Juice Summers SCRIBE, acting as scribe for Michi Mensah MD. Michi Mensah MD: This documentation has been prepared by the Kristopher yeh Nirvannie, SCRIBE, under my direction and personally reviewed by me in its entirety. I confirm that the documentation accurately reflects all work, treatment, procedures, and medical decision making performed by me. History of Present Illness - General Chief Complaint: Rash Stated Complaint: RASH Time Seen by Provider: 01/20/19 23:41 History Source: Patient Exam Limitations: No Limitations - History of Present Illness Initial Comments: 01/21/19 00:00 The patient is a 63 year old male, with a significant past medical history of Afib (on Xarelto), CHF, CAD, PVD, COPD, DM, HTN, HLD, hypothyroid, and neuropathy, who presents to the emergency department with, a rash to the left lowwer pannus. As per patient, his rash is erythematous, intermittently itchy, and has been prominent for a few days. He notes going to his PCP for similar symptoms and was prescribed unknown creams which he could not obtain at the pharmacy secondary to insurance issues. He denies any recent fevers, chills, abd pain. Allergies: NKDA Social history: Current smoker (10 cigarettes per day) Primary Care Physician: Dr. Dirk Garza Charger Operator: Dr. Harsha High Vascular surgeon: Dr. Jez Fonseca Past History - Past Medical History Allergies/Adverse Reactions: Allergies Allergy/AdvReac Type Severity Reaction Status Date / Time No Known Allergies Allergy Verified 01/20/19 23:40 Home Medications: Ambulatory Orders Omeprazole 40 mg PO DAILY 04/29/17 Tiotropium [place] [Spiriva] 1 inh PO DAILY 02/16/18 Atorvastatin Ca [Lipitor] 80 mg PO DAILY 04/09/18 Bupropion HCl [Wellbutrin Xl -] 150 mg PO DAILY tab.sr.24h 04/11/18 Docusate Sodium [Colace -] 300 mg PO HS #30 capsule 04/11/18 Ezetimibe [Zetia -] 10 mg PO HS tablet 04/11/18 Tamsulosin HCl [Flomax -] 0.4 mg PO DAILY@0800 cap.er.24h 04/11/18 Furosemide [Lasix] 20 mg PO ASDIR MDD every other day 07/03/18 Gabapentin 300 mg PO TID 07/03/18 Levothyroxine [Synthroid -] 25 mcg PO DAILY 07/03/18 Ranolazine [Ranexa -] 1,000 mg PO BID 07/03/18 Rivaroxaban [Xarelto -] 20 mg PO AM 07/03/18 Sotalol HCl [Betapace -] 80 mg PO TID 07/03/18 Valsartan 40 mg PO DAILY 07/03/18 Insulin Degludec [Tresiba Flextouch U-100] 100 unit SQ DAILY 11/17/18 Cyclobenzaprine HCl [Cyclobenzaprine HCl ER] 50 mg PO TID 11/18/18 Linaclotide [Linzess] 145 mcg PO DAILY 11/18/18 Loratadine 10 mg PO DAILY 11/18/18 Valacyclovir HCl [Valtrex -] 1,000 mg PO PRN PRN 11/18/18 Hydrocortisone 0.5% Ointment [Hytone 0.5% Ointment -] 1 applic TP BID 4 Days #1 tube 01/20/19 Anemia: No Asthma: No Cancer: No Cardiac Disorders: Yes (A-Fib, PVC) CVA: No COPD: Yes CHF: No Dementia: No Diabetes: Yes GI Disorders: Yes (GERD) Disorders: No HTN: Yes Hypercholesterolemia: Yes Liver Disease: No Seizures: No Thyroid Disease: Yes (Hypothyroid) - Surgical History Abdominal Surgery: No Appendectomy: No Cardiac Surgery: Yes (angioplasty) Cholecystectomy: No Lung Surgery: No Neurologic Surgery: No Orthopedic Surgery: Yes (bilat feet bone removal) - Immunization History Immunization Up to Date: Yes - Suicide/Smoking/Psychosocial Hx Smoking Status: No Smoking History: Current every day smoker Have you smoked in the past 12 months: Yes Number of Cigarettes Smoked Daily: 10 If you are a former smoker, when did you quit?: On Chantix Information on smoking cessation initiated: No 'Breaking Loose' booklet given: 04/28/17 Hx Alcohol Use: No Drug/Substance Use Hx: No Substance Use Type: None Hx Substance Use Treatment: No Review of Systems - Review of Systems Able to Perform ROS?: Yes Comments:: 01/21/19 00:01 CONSTITUTIONAL: No reported: Fever, Chills, GASTROINTESTINAL: No reported: Abdominal pain, Abdominal Distension, Nausea, Vomiting, Diarrhea, Constipation, Melena, Hematochezia SKIN: Present: itchy Rash to the left pannus. No reported: Pallor *Physical Exam - Vital Signs Last Vital Signs Temp Pulse Resp BP Pulse Ox 98.0 F 79 17 148/94 100 01/20/19 23:40 01/20/19 23:40 01/20/19 23:40 01/20/19 23:40 01/20/19 23:40 - Physical Exam Comments: 01/20/19 23:59 General: no acute distress Skin: approx 4x5cm mildy erythemadous, nontender, non indurated with a few superficial excoriations Medical Decision Making - Medical Decision Making 01/20/19 23:59 non specific erythemadous rash may be hypersensitivity vs bug bite will give low dose hydrocoritsone cream supportive care pmd fu I discussed the physical exam findings, ancillary test results and final diagnoses with the patient. I answered all of the patient's questions. The patient was satisfied with the care received and felt comfortable with the discharge plan and treatment plan. The patient will call their primary care physician within 24 hours to arrange follow-up and will return to the Emergency Department with any new, persistent or worsening symptoms. *DC/Admit/Observation/Transfer Diagnosis at time of Disposition: Rash - Discharge Dispostion Disposition: HOME Condition at time of disposition: Improved Decision to Admit order: No - Prescriptions Prescriptions: Hydrocortisone 0.5% Ointment [Hytone 0.5% Ointment -] 1 applic TP BID 4 Days #1 tube - Referrals Referrals: Dirk Garza MD [Staff Physician] - - Patient Instructions Printed Discharge Instructions: DI for Rash Additional Instructions: Stop scratching the rash Apply the hydrocoritisone twice daily Keep the area clean See your doctor in 3-4 days for reassessment - Post Discharge Activity
== END 2019-01-21 00:42 | disposition home or self-care (01) ==
LOC: FER 23:36
DX: R21 Rash and other nonspecific skin eruption (principal); F17.210 Nicotine dependence, cigarettes, uncomplicated; E03.9 Hypothyroidism, unspecified; I48.91 Unspecified atrial fibrillation; J44.9 Chronic obstructive pulmonary disease, unspecified; K21.9 Gastro-esophageal reflux disease without esophagitis; E78.00 Pure hypercholesterolemia, unspecified; I10 Essential (primary) hypertension
CPT/HCPCS: 99281-25

== ENCOUNTER 2020-01-05 10:57 | Emergency (ER) | payer OTHER ==
[2020-01-05 11:06] VITALS: BMI 29.4
--- NOTE | 2020-01-05 11:48 | PDOC ---
History of Present Illness - General Chief Complaint: Edema Stated Complaint: EDEMA Time Seen by Provider: 01/05/20 11:47 History Source: Patient Exam Limitations: No Limitations - History of Present Illness Initial Comments: 01/05/20 11:50 64 yo M PMH HTN, HLD, Charcot foot on left, Parkinson's with frequent falls, Afib (on Xarelto), CHF, CAD, PVD, COPD, DM, hypothyroid, obesity, peripheral neuropathy, chronic smoker presenting w 2d RLE swelling below knee and knee abrasions s/p recent falls, few months of intermittent palpitations and unintentional 55lb weight loss. Takes all of his meds as prescribed. Denies head trauma, LOC, ambulates w/o support at baseline. Denies fever, headache, n/v, cough, chest/ABD pain, BLE pain/numbness. Past History - Medical History Allergies/Adverse Reactions: Allergies Allergy/AdvReac Type Severity Reaction Status Date / Time No Known Allergies Allergy Verified 01/05/20 11:06 Home Medications: Ambulatory Orders Omeprazole 40 mg PO DAILY 04/29/17 Tiotropium [place] [Spiriva] 1 inh PO DAILY 02/16/18 Atorvastatin Ca [Lipitor] 80 mg PO DAILY 04/09/18 Bupropion HCl [Wellbutrin Xl -] 150 mg PO DAILY tab.sr.24h 04/11/18 Docusate Sodium [Colace -] 300 mg PO HS #30 capsule 04/11/18 Ezetimibe [Zetia -] 10 mg PO HS tablet 04/11/18 Tamsulosin HCl [Flomax -] 0.4 mg PO DAILY@0800 cap.er.24h 04/11/18 Furosemide [Lasix] 20 mg PO ASDIR MDD every other day 07/03/18 Gabapentin 300 mg PO TID 07/03/18 Levothyroxine [Synthroid -] 25 mcg PO DAILY 07/03/18 Ranolazine [Ranexa -] 1,000 mg PO BID 07/03/18 Rivaroxaban [Xarelto -] 20 mg PO AM 07/03/18 Sotalol HCl [Betapace -] 80 mg PO TID 07/03/18 Valsartan 40 mg PO DAILY 07/03/18 Insulin Degludec [Tresiba Flextouch U-100] 100 unit SQ DAILY 11/17/18 Cyclobenzaprine HCl [Cyclobenzaprine HCl ER] 50 mg PO TID 11/18/18 Linaclotide [Linzess] 145 mcg PO DAILY 11/18/18 Loratadine 10 mg PO DAILY 11/18/18 Valacyclovir HCl [Valtrex -] 1,000 mg PO PRN PRN 11/18/18 Hydrocortisone 0.5% Ointment [Hytone 0.5% Ointment -] 1 applic TP BID 4 Days #1 tube 01/20/19 Anemia: No Asthma: No Cancer: No Cardiac Disorders: Yes (A-Fib, PVC) CVA: No COPD: Yes CHF: No Dementia: No Diabetes: Yes GI Disorders: Yes (GERD) Disorders: No HTN: Yes Hypercholesterolemia: Yes Liver Disease: No Seizures: No Thyroid Disease: Yes (Hypothyroid) - Surgical History Abdominal Surgery: No Appendectomy: No Cardiac Surgery: Yes (angioplasty) Cholecystectomy: No Lung Surgery: No Neurologic Surgery: No Orthopedic Surgery: Yes (bilat feet bone removal) - Immunization History Immunization Up to Date: Yes - Psycho-Social/Smoking History Smoking Status: No Smoking History: Current every day smoker Have you smoked in the past 12 months: Yes Number of Cigarettes Smoked Daily: 3 If you are a former smoker, when did you quit?: On Chantix Information on smoking cessation initiated: No 'Breaking Loose' booklet given: 04/28/17 - Substance Abuse Hx (Audit-C & DAST Scrn) How often the patient has a drink containing alcohol: Never Score: In Men: 4 or > Positive; In Women: 3 or > Positive: 0 Screen Result (Pos requires Nsg. Audit-10AR): Negative In the last yr the pt used illegal drug/Rx for NonMed reason: No Score: Yes response is considered Positive: 0 Screen Result (Positive result requires Nsg. DAST-10): Negative Review of Systems - Review of Systems Constitutional: No: Chills, Fever HEENTM: No: Eye Pain, Nose Congestion Respiratory: No: Cough, Shortness of Breath Cardiac (ROS): No: Chest Pain, Palpitations ABD/GI: No: Constipated, Diarrhea, Nausea : No: Burning, Dysuria Musculoskeletal: No: Back Pain, Joint Pain Integumentary: No: Bruising, Flushing Neurological: No: Headache, Seizure Psychiatric: No: Anxiety, Depression Endocrine: Yes: Unexplained Weight Loss. No: Intolerance to Cold, Intolerance to Heat Hematologic/Lymphatic: No: Anemia, Blood Clots *Physical Exam - Vital Signs Last Vital Signs Temp Pulse Resp BP Pulse Ox 98.4 F 79 18 111/54 L 100 01/05/20 11:01 01/05/20 11:01 01/05/20 11:01 01/05/20 11:01/05/20 11:01 - Physical Exam General Appearance: Yes: Nourished, Appropriately Dressed, Mild Distress, Obese HEENT: positive: EOMI, LES, Normal Voice, Hearing Grossly Normal. negative: Scleral Icterus (R), Scleral Icterus (L) Neck: positive: Supple. negative: Tender, Rigid, Decreased range of motion (full ROM) Respiratory/Chest: positive: Lungs Clear, Normal Breath Sounds. negative: Chest Tender, Respiratory Distress, Crackles, Rales, Rhonchi, Stridor, Wheezing Cardiovascular: positive: Regular Rhythm, Regular Rate, S1, S2. negative: Murmur Vascular Pulses: Dorsalis-Pedis (R): 2+, Doralis-Pedis (L): 2+ Gastrointestinal/Abdominal: positive: Normal Bowel Sounds, Flat, Soft. negative: Tender, Organomegaly Extremity: positive: Pedal Edema (+1 pitting edema adolfo to knees) Integumentary: positive: Normal Color, Warm, Other (abrasions adolfo anterior knees) Neurologic: positive: Fully Oriented, Alert, Normal Mood/Affect, Normal Response, Motor Strength 5/5 (BLE), Responsive. negative: Numbness (BLE), Sensory Deficit, Confused, Disoriented ED Treatment Course - LABORATORY CBC & Chemistry Diagram: 01/05/20 12:05 01/05/20 12:05 Medical Decision Making - Medical Decision Making 01/05/20 12:[address] - no acute intracranial pathology EKG - NSR, HR 75, Qtc 471, no ST changes Chest XR - clear lung adam, no infiltrates/consolidation duplex art/venous RLE - no evidence of DVT, mod/marked atherosclerosis at mid superficial femoral artery w/o significant occlusion/stenosis --- 64 yo M PMH HTN, HLD, Charcot foot on left, Parkinson's with frequent falls, Afib (on Xarelto), CHF, CAD, PVD, COPD, DM, hypothyroid, obesity, peripheral neuropathy, chronic smoker presenting w 2d RLE swelling and knee abrasions s/p recent falls, few months of intermittent palpitations and unintentional 55lb weight loss. No gross swelling of RLE. RLE neurovascular intact. Pt stable gait w/o support. Has mod atheroscleorosis in R leg d/t peripheral vascular disease Low concern for hyperthyroidism (TSH wnl) vs CHF (BNP < 400) vs ACS (neg trop) vs cellulitis (not warm/red/tender) vs DVT (neg) vs arterial occlusion (neg duplex). Head CT no acute pathology DC home w Dr Fonseca f/u Discharge - Discharge Information Problems reviewed: Yes Clinical Impression/Diagnosis: Localized swelling of right lower extremity, Abrasions of multiple sites, PVD (peripheral vascular disease) Fall Qualifiers: Encounter type: initial encounter Qualified Code(s): W19.XXXA - Unspecified fall, initial encounter Condition: Good Disposition: HOME - Follow up/Referral Referrals: Dirk Graza MD [Primary Care Provider] - Jez Fonseca MD [Non Staff, Medical] - Caleb Barnett MD [Staff Physician] - - Patient Discharge Instructions Patient Printed Discharge Instructions: DI for Peripheral Vascular (Arterial) Disease, DI for Abrasion, DI for Peripheral Edema, Unilateral Additional Instructions: Your imaging did not show anything concerning Please follow up with your vascular surgeon - Post Discharge Activity
--- NOTE | 2020-01-05 12:00 | PDOC ---
Attending Attestation - Resident Resident Name: Mayco Ridley - ED Attending Attestation I have performed the following: I have examined & evaluated the patient, The case was reviewed & discussed with the resident, I agree w/resident's findings & plan - HPI HPI: 01/05/20 11:56 64 yo M PMH HTN, HLD, Charcot foot on left, Parkinson's with frequent falls, Afib (on Xarelto), CHF, CAD, PVD, COPD, DM, hypothyroid, obesity, peripheral neuropathy, presenting from home with R leg swelling x several days chest palpitations and "funny feeling" in his chest intermittently x "for a while," but noticed more during the last few days a/w mild sob, has copd no O2 use has been falling more in the last several days, sustained scabs/abrasions to his knees and arms dried scabs on his right anterior knee, nontender. FROM in the knees mild bruising/abrasions (healed) to his left anterior knee right forearm with healing abrasions. tdap is up to date he also mentions he has been confused and not making any sense x several weeks. 01/05/20 14:27 - Physicial Exam PE: 01/05/20 11:57 Agree with the resident's HPI and PE as documented in the electronic medical record. GCS 15, NAD, well appearing, EOMI, PERRL, nl conjunctiva, anicteric; neck supple. lungs clear, RRR, abdomen soft nontender. no rebound, guarding. Back nontender. CHANDLER x4, no focal neuro deficits. normal color for ethnicity, WWP. dried scabs on his right anterior knee, nontender. FROM in the knees mild bruising/abrasions (healed) to his left anterior knee, +abrasion. nonbleeding, nontender right forearm with healing abrasions. +RLE edema, 1+ varicosities on his LLE no calf tenderness Left charcot foot. 01/05/20 11:57 01/05/20 12:00 01/05/20 14:49 - Medical Decision Making 01/05/20 11:58 Vital Signs Temp Pulse Resp BP Pulse Ox 98.4 F 79 18 111/54 L 100 01/05/20 11:01 01/05/20 11:01 01/05/20 11:01 01/05/20 11:01 01/05/20 11:01 vitals reviewed wnl ddx. ACS, arrhythmia, DVT, guevara's cyst, ischemic limb, anemia, electrolyte/metabolic derangements. no s/s infection. neurovascular intact duplex, arterial and venous. 01/05/20 13:23 BMP is unremarkable, basic laboratory results are also unremarkable, negative troponin unlikely be ACS. CT head no acute intracranial pathology Ultrasound/duplex neg for DVT 01/05/20 16:31 Arterial duplex with normal flow in the common femoral and proximal superficial femoral artery. There are multiple small atherosclerotic plaque seen, moderate inflow disease, notable in the mid superficial femoral artery level due to the abrupt changes from triphasic to monophasic view without evidence of hemodynamically significant stenosis or occlusion. Clinically correlated no indication for CTA at this time patient can follow-up these results with his vascular surgeon who we will provide referrals to. Pt to be discharged in stable condition. Patient made aware of clinical impression, treatment recommendations and disposition plan, return precautions discussed (including but not limited to new or persistent/worsening symptoms, pain, fevers, or signs of infection, chest pain, respiratory distress, inability to tolerate oral intake, dehydration, syncope, or neurologic changes). Follow up with PMD and/or specialist as recommended, follow up information provided, take medications as instructed for duration of time. continue with supportive care, avoid triggers and precipitants. All questions answered to patient's satisfaction and expressed understanding and comfort with this. At the time of discharge, the patient is alert, clinically improved, tolerating po and verbalizes understanding of instructions, satisfied with the care received and felt comfortable with the plan. Patient does not suffer from an acute life- threatening medical condition at this time and is safe for outpatient follow- up. 01/05/20 14:47 Heart Score/ECG Review #1 ECG reviewed & interpreted by me at: 13:55 General ECG Interpretation: Sinus Rhythm, Normal Rate 01/05/20 14:27 EKG normal sinus rhythm 75 bpm, no interval abnormalities, normal axis. Narrow QRS, ST and T wave segments and morphology normal. Discharge - Discharge Information Problems reviewed: Yes Clinical Impression/Diagnosis: Localized swelling of right lower extremity, Abrasions of multiple sites Fall Qualifiers: Encounter type: initial encounter Qualified Code(s): W19.XXXA - Unspecified fall, initial encounter Condition: Good Disposition: HOME - Admission No - Follow up/Referral Referrals: Dirk Garza MD [Primary Care Provider] - Caleb Barnett MD [Staff Physician] - Jez Fonseca MD [Non Staff, Medical] - - Patient Discharge Instructions Patient Printed Discharge Instructions: DI for Peripheral Vascular (Arterial) Disease, DI for Peripheral Edema, Unilateral, DI for Abrasion Additional Instructions: Your imaging did not show anything concerning Please follow up with your vascular surgeon - Post Discharge Activity
[2020-01-05 12:28] LABS: BASO % 1.2 % (0-2.0); EOS % 2.9 % (0-4.5); HEMATOCRIT 35.5 % (35.4-49); HEMOGLOBIN 12.1 GM/dL (11.7-16.9); LYMPH % 21.9 % (8-40); MCH 31.7 pg (25.7-33.7); MCHC 34.2 g/dl (32.0-35.9); MEAN CELL VOLUME 92.7 fl (80-96); MEAN PLT VOLUME 8.7 fl (7.5-11.1); MONO % 9.7 % (3.8-10.2); NEUT % 64.3 % (42.8-82.8); PLATELET COUNT 158 K/MM3 (134-434); RBC 3.83 M/mm3 (4.00-5.60); RDW 13.3 % (11.9-15.9); WHITE BLOOD COUNT 7.9 K/mm3 (4.0-10.0)
[2020-01-05 12:35] LABS: INR 1.03 (0.83-1.09); PROTHROMBIN TIME (PATIENT) 12.1 SEC (9.7-13.0)
[2020-01-05 12:37] LABS: ACTIVATED PTT 30.4 SECONDS (25.2-36.5)
[2020-01-05 13:07] LABS: ALBUMIN 3.2 g/dl (3.4-5.0); ALK PHOS 94 U/L (45-117); ANION GAP 7 MMOL/L (8-16); BILIRUBIN,TOTAL 0.7 mg/dL (0.2-1); BLOOD UREA NITROGEN 14.1 mg/dL (7-18); CALCIUM 8.9 mg/dL (8.5-10.1); CHLORIDE 113 mmol/L (98-107); CO2 25 mmol/L (21-32); CREATININE 0.8 mg/dL (0.55-1.3); GLUCOSE,RANDOM 108 mg/dL (74-106); POTASSIUM 3.9 mmol/L (3.5-5.1); SGOT/AST 16 U/L (15-37); SGPT/ALT 15 U/L (13-61); SODIUM 145 mmol/L (136-145); TOT PROT 6.3 g/dl (6.4-8.2)
[2020-01-05 14:24] VITALS: BP 140/83; PULSE 72; TEMP 98.6
--- NOTE | 2020-01-06 13:09 | EKG ---
Test Reason : Blood Pressure : / mmHG Vent. Rate : 075 BPM Atrial Rate : 075 BPM P-R Int : 188 ms QRS Dur : 122 ms QT Int : 422 ms P-R-T Axes : 012 052 033 degrees QTc Int : 471 ms NORMAL SINUS RHYTHM SEPTAL INFARCT , AGE UNDETERMINED NONSPECIFIC INTRAVENTRICULAR CONDUCTION DEFECT ABNORMAL ECG WHEN COMPARED WITH ECG OF 11-NOV-2019 00:30, SEPTAL INFARCT IS NOW PRESENT Confirmed by CHUCK MARTIN MD ([id number]) on 01/06/2020 1:09:25 PM Referred By: Confirmed By:CHUCK MARTIN MD
== END 2020-01-05 17:13 | disposition home or self-care (01) ==
LOC: JER 10:57
DX: R22.41 Localized swelling, mass and lump, right lower limb (principal)
CPT/HCPCS: 36415; 70450-TC; 71045-TC-FY; 80053; 83880; 84443; 84484; 85025; 85610; 85730; 93005; 93010; 93926-TC; 93971-TC; 99285-25

== ENCOUNTER 2020-02-02 16:19 | Emergency (ER) | payer OTHER ==
[2020-02-02 16:21] VITALS: BMI 28.6
[2020-02-02] MEDS ORDERED: LACTATED RINGERS SOLUTION 1000 ML INFUS.BAG IV ONE (17:09)
[2020-02-02] MEDS ORDERED: TETANUS AND DIPHTHERIA TOXOID 0.5 ML DISP.SYRIN IM ONE (17:34)
[2020-02-02] MEDS ORDERED: DIPHTH,PERTUSS(ACELL),TET 0.5 ML DISP.SYRIN IM ONE ×2 (18:13)
[2020-02-02 18:20] LABS: BASO % 1.1 % (0-2.0); EOS % 2.8 % (0-4.5); HEMATOCRIT 37.8 % (35.4-49); HEMOGLOBIN 12.7 GM/dL (11.7-16.9); LYMPH % 27.2 % (8-40); MCH 30.9 pg (25.7-33.7); MCHC 33.4 g/dl (32.0-35.9); MEAN CELL VOLUME 92.4 fl (80-96); MEAN PLT VOLUME 8.6 fl (7.5-11.1); MONO % 8.6 % (3.8-10.2); NEUT % 60.3 % (42.8-82.8); PLATELET COUNT 148 K/MM3 (134-434); RDW 13.2 % (11.9-15.9); WHITE BLOOD COUNT 7.7 K/mm3 (4.0-10.0)
[2020-02-02 18:28] LABS: INR 1.49 (0.83-1.09); PROTHROMBIN TIME (PATIENT) 17.7 SEC (9.7-13.0)
[2020-02-02 18:31] LABS: ACTIVATED PTT 42.6 SECONDS (25.2-36.5)
[2020-02-02 18:48] VITALS: PULSE 63; TEMP 97.5
[2020-02-02 18:57] LABS: ALBUMIN 3.3 g/dl (3.4-5.0); BILIRUBIN,TOTAL 0.5 mg/dL (0.2-1); BLOOD UREA NITROGEN 24.4 mg/dL (7-18); CALCIUM 8.4 mg/dL (8.5-10.1); CREATININE 1.2 mg/dL (0.55-1.3); POTASSIUM 5.3 mmol/L (3.5-5.1); TOT PROT 6.7 g/dl (6.4-8.2)
[2020-02-02 19:37] VITALS: BP 126/75
== END 2020-02-02 19:49 | disposition home or self-care (01) ==
LOC: JER 16:19
PROC: 3E0234Z Introduction of Serum, Toxoid and Vaccine into Muscle, Percutaneous Approach (ICD-10-PCS; principal; 2020-02-02)
DX: S91.302A Unspecified open wound, left foot, initial encounter (principal)
CPT/HCPCS: 28192; 36415; 73630-TC-LT; 80053; 82962; 83605; 85025; 85610; 85730; 88300-TC; 90715; 93005; 93010; 93922; 99285-25; G0463-25

== ENCOUNTER 2020-04-11 14:42 | Emergency (ER) | payer OTHER ==
[2020-04-11 14:47] VITALS: BP 133/76; PULSE 71; TEMP 98.7; BMI 30.7
== END 2020-04-11 18:45 | disposition home or self-care (01) ==
LOC: JER 14:42
DX: S09.90XA Unspecified injury of head, initial encounter (principal); J32.2 Chronic ethmoidal sinusitis; W19.XXXA Unspecified fall, initial encounter
CPT/HCPCS: 70450-TC; 72125-TC; 99284-25

== ENCOUNTER 2020-04-13 12:42 | Emergency (ER) | payer OTHER ==
[2020-04-13 13:00] VITALS: TEMP 98.8; BMI 30.7
[2020-04-13 14:21] LABS: BASO % 0.7 % (0-2.0); EOS % 2.9 % (0-4.5); HEMATOCRIT 40.4 % (35.4-49); HEMOGLOBIN 13.6 GM/dL (11.7-16.9); MCH 30.6 pg (25.7-33.7); MCHC 33.7 g/dl (32.0-35.9); MEAN CELL VOLUME 90.9 fl (80-96); MEAN PLT VOLUME 8.6 fl (7.5-11.1); MONO % 7.9 % (3.8-10.2); NEUT % 69.5 % (42.8-82.8); PLATELET COUNT 130 K/MM3 (134-434); RBC 4.45 M/mm3 (4.00-5.60); RDW 13.4 % (11.9-15.9)
[2020-04-13 14:44] LABS: POTASSIUM 4.2 mmol/L (3.5-5.1)
[2020-04-13 14:46] LABS: CALCIUM 8.5 mg/dL (8.5-10.1)
[2020-04-13 14:47] LABS: ALBUMIN 3.2 g/dl (3.4-5.0)
[2020-04-13 14:50] LABS: CREATININE 0.6 mg/dL (0.55-1.3)
[2020-04-13 14:51] LABS: BILIRUBIN,TOTAL 0.5 mg/dL (0.2-1)
[2020-04-13 14:52] LABS: TOT PROT 6.2 g/dl (6.4-8.2)
[2020-04-13 17:19] VITALS: BP 153/83; PULSE 73
== END 2020-04-13 17:54 | disposition home or self-care (01) ==
LOC: JER 12:42
DX: G20 Parkinson's disease (principal)
CPT/HCPCS: 36415; 80053; 85025; 99284-25

== ENCOUNTER 2020-07-03 18:27 | Observation (INO) | payer OTHER ==
[2020-07-03 19:01] VITALS: BMI 33.4
[2020-07-03 19:43] LABS: BASO % 0.6 % (0-2.0); EOS % 3.7 % (0-4.5); HEMOGLOBIN 13.1 GM/dL (11.7-16.9); LYMPH % 18.4 % (8-40); MCH 31.3 pg (25.7-33.7); MCHC 33.7 g/dl (32.0-35.9); MEAN CELL VOLUME 92.9 fl (80-96); MEAN PLT VOLUME 8.5 fl (7.5-11.1); MONO % 7.5 % (3.8-10.2); NEUT % 69.8 % (42.8-82.8); PLATELET COUNT 136 K/MM3 (134-434); RDW 13.5 % (11.9-15.9); WHITE BLOOD COUNT 7.7 K/mm3 (4.0-10.0)
[2020-07-03 19:50] LABS: INR 1.52 (0.83-1.09); PROTHROMBIN TIME (PATIENT) 18.2 SEC (9.7-13.0)
[2020-07-03 20:01] LABS: CHLORIDE 104 mmol/L (98-107); POTASSIUM 4.1 mmol/L (3.5-5.1)
[2020-07-03 20:04] LABS: ALBUMIN 3.4 g/dl (3.4-5.0); BLOOD UREA NITROGEN 14.4 mg/dL (7-18); CALCIUM 9.2 mg/dL (8.5-10.1); CO2 30 mmol/L (21-32); GLUCOSE,RANDOM 225 mg/dL (74-106)
[2020-07-03 20:07] LABS: CREATININE 0.7 mg/dL (0.55-1.3); SGOT/AST 12 U/L (15-37); SGPT/ALT 9 U/L (13-61)
[2020-07-03 20:08] LABS: BILIRUBIN,TOTAL 0.5 mg/dL (0.2-1); TOT PROT 6.7 g/dl (6.4-8.2)
[2020-07-03 20:11] LABS: ALK PHOS 152 U/L (45-117)
[2020-07-03 20:26] LABS: ANION GAP 4 MMOL/L (8-16); SODIUM 138 mmol/L (136-145)
[2020-07-03 20:50] LABS: N-TERMINAL BNP 61.7 pg/ml (5-125)
[2020-07-03] MEDS ORDERED: CLINDAMYCIN 600MG PREMIX IVPB 600 MG/50 ML BAG IVPB ONE ×2 (23:04→23:11)
[2020-07-03] MEDS ORDERED: LACTATED RINGERS SOLUTION 1000 ML INFUS.BAG IV ONE (23:10)
[2020-07-04] MEDS ORDERED: ALBUTEROL SO4 2.5/IPRATROPIUM 0.5 INH SOL 3 ML VIAL.NEB. NEB PRN (05:11)
[2020-07-04] MEDS ORDERED: LEVOTHYROXINE NA 25 MCG TABLET (FP) ONE (07:31)
[2020-07-04] MEDS ORDERED: TAMSULOSIN HCL 0.4 MG CAP ONE (07:31)
[2020-07-04 07:33] LABS: ALBUMIN 3.1 g/dl (3.4-5.0); BILIRUBIN,TOTAL 0.4 mg/dL (0.2-1); BLOOD UREA NITROGEN 12.8 mg/dL (7-18); CALCIUM 8.5 mg/dL (8.5-10.1); CREATININE 0.8 mg/dL (0.55-1.3); MAGNESIUM 2.1 mg/dL (1.8-2.4); POTASSIUM 4.1 mmol/L (3.5-5.1); TOT PROT 5.9 g/dl (6.4-8.2)
[2020-07-04] MEDS: TAMSULOSIN HCL 0.4 MG CAP PO SCH (07:45)
[2020-07-04] MEDS: LEVOTHYROXINE NA 25 MCG TABLET (FP) PO SCH (07:45)
[2020-07-04] MEDS ORDERED: CLINDAMYCIN 600MG PREMIX IVPB 600 MG/50 ML BAG IVPB SCH (10:00)
[2020-07-04] MEDS ORDERED: FAMOTIDINE 20 MG TABLET ONE (12:11)
[2020-07-04] MEDS: FAMOTIDINE 20 MG TABLET PO SCH (12:14)
[2020-07-04] MEDS: RANOLAZINE E.R. 1,000 MG TABLET (FP) PO SCH ×2 (12:14→21:31)
[2020-07-04] MEDS: TIOTROPIUM BROMIDE 2.5 MCG (SPIRIVA) RESPIMAT INHALER IH SCH (12:14)
[2020-07-04 13:03] LABS: BASO % 1.1 % (0-2.0); EOS % 4.1 % (0-4.5); HEMATOCRIT 37.5 % (35.4-49); HEMOGLOBIN 12.9 GM/dL (11.7-16.9); LYMPH % 23.2 % (8-40); MCH 31.8 pg (25.7-33.7); MCHC 34.4 g/dl (32.0-35.9); MEAN CELL VOLUME 92.5 fl (80-96); MEAN PLT VOLUME 8.4 fl (7.5-11.1); MONO % 8.3 % (3.8-10.2); NEUT % 63.3 % (42.8-82.8); PLATELET COUNT 146 K/MM3 (134-434); RBC 4.06 M/mm3 (4.00-5.60); RDW 13.8 % (11.9-15.9); WHITE BLOOD COUNT 6.9 K/mm3 (4.0-10.0)
[2020-07-04] MEDS: INSULIN SLIDING SCALE (NOVOLOG) 1 VIAL SQ SCH ×2 (16:01→17:26)
[2020-07-04] MEDS ORDERED: RANOLAZINE E.R. 500 MG TABLET (FP) ONE (20:07)
[2020-07-04] MEDS: SOTALOL HCL 80 MG TABLET (FP) PO SCH (21:30)
[2020-07-04] MEDS: ATORVASTATIN CA 80 MG TABLET (FP) PO SCH (21:30)
[2020-07-04] MEDS: EZETIMIBE 10 MG TABLET (FP) PO SCH (21:32)
[2020-07-04] MEDS: DOCUSATE SODIUM 100 MG CAPSULE (FP) PO SCH (21:44)
[2020-07-05] MEDS: SOTALOL HCL 80 MG TABLET (FP) PO SCH ×3 (06:15→22:40)
[2020-07-05] MEDS: RIVAROXABAN 20 MG TABLET PO SCH (06:16)
[2020-07-05] MEDS: sitaGLIPtin PHOSPHATE 50 MG TABLET PO SCH (06:16)
[2020-07-05] MEDS: LEVOTHYROXINE NA 25 MCG TABLET (FP) PO SCH (06:16)
[2020-07-05] MEDS: INSULIN SLIDING SCALE (NOVOLOG) 1 VIAL SQ SCH ×3 (06:17→17:46)
[2020-07-05] MEDS ORDERED: PT OWN MED DRAWER 7, Y5N ONE ×2 (09:16→17:57)
[2020-07-05] MEDS ORDERED: RANOLAZINE E.R. 500 MG TABLET (FP) ONE ×2 (09:16→20:37)
[2020-07-05] MEDS: TAMSULOSIN HCL 0.4 MG CAP PO SCH (10:26)
[2020-07-05] MEDS: VALSARTAN 40 MG TABLET PO SCH (10:27)
[2020-07-05] MEDS: ACETAMINOPHEN 325 MG TABLET (FP) PO PRN ×3 (10:27→22:37)
[2020-07-05] MEDS: RANOLAZINE E.R. 1,000 MG TABLET (FP) PO SCH ×2 (10:27→22:42)
[2020-07-05] MEDS: FAMOTIDINE 20 MG TABLET PO SCH (10:27)
[2020-07-05] MEDS: TIOTROPIUM BROMIDE 2.5 MCG (SPIRIVA) RESPIMAT INHALER IH SCH (12:18)
[2020-07-05] MEDS: INSULIN (LEVEMIR) 100 UNITS/ML UNITS SQ SCH ×2 (14:34→22:59)
[2020-07-05] MEDS: DOCUSATE SODIUM 100 MG CAPSULE (FP) PO SCH (22:34)
[2020-07-05] MEDS: EZETIMIBE 10 MG TABLET (FP) PO SCH (22:35)
[2020-07-05] MEDS ORDERED: INSULIN (LEVEMIR) 100 UNITS/ML UNITS SQ SCH (22:40)
[2020-07-05] MEDS: ATORVASTATIN CA 80 MG TABLET (FP) PO SCH (22:46)
[2020-07-06] MEDS ORDERED: MAG HYDROX/AL HYDROX/SIMETH -MYLANTA- ORAL SUSPENSION PO ONE (01:01)
[2020-07-06] MEDS: SOTALOL HCL 80 MG TABLET (FP) PO SCH ×2 (06:47→14:48)
[2020-07-06] MEDS: LEVOTHYROXINE NA 25 MCG TABLET (FP) PO SCH (06:47)
[2020-07-06] MEDS: sitaGLIPtin PHOSPHATE 50 MG TABLET PO SCH (06:48)
[2020-07-06] MEDS: INSULIN SLIDING SCALE (NOVOLOG) 1 VIAL SQ SCH ×2 (06:49→11:47)
[2020-07-06] MEDS: RIVAROXABAN 20 MG TABLET PO SCH (06:50)
[2020-07-06] MEDS ORDERED: RANOLAZINE E.R. 500 MG TABLET (FP) ONE (08:38)
[2020-07-06] MEDS: TAMSULOSIN HCL 0.4 MG CAP PO SCH (08:53)
[2020-07-06] MEDS: ACETAMINOPHEN 325 MG TABLET (FP) PO PRN (09:00)
[2020-07-06] MEDS: FAMOTIDINE 20 MG TABLET PO SCH (09:02)
[2020-07-06] MEDS: VALSARTAN 40 MG TABLET PO SCH (09:02)
[2020-07-06] MEDS: TIOTROPIUM BROMIDE 2.5 MCG (SPIRIVA) RESPIMAT INHALER IH SCH (09:03)
[2020-07-06] MEDS: RANOLAZINE E.R. 1,000 MG TABLET (FP) PO SCH (09:03)
[2020-07-06] MEDS ORDERED: PANTOPRAZOLE 40 MG TABLET PO ONE (13:30)
[2020-07-06 16:01] VITALS: BP 134/77; PULSE 62; TEMP 97.8
== END 2020-07-06 16:23 | disposition home health service (06) ==
LOC: JER 18:27 → JERBED 23:24 → J4W 07-04 17:01
PROVIDERS: ADMIT Internal Medicine; ATTEND Family Medicine
PROC: 3E03329 Introduction of Other Anti-infective into Peripheral Vein, Percutaneous Approach (ICD-10-PCS; principal; 2020-07-03)
PROC: 3E013VG Introduction of Insulin into Subcutaneous Tissue, Percutaneous Approach (ICD-10-PCS; 2020-07-03)
PROC: 3E0337Z Introduction of Electrolytic and Water Balance Substance into Peripheral Vein, Percutaneous Approach (ICD-10-PCS; 2020-07-03)
DX: G20 Parkinson's disease (principal); R29.6 Repeated falls; I25.10 Atherosclerotic heart disease of native coronary artery without angina pectoris; E78.5 Hyperlipidemia, unspecified; I48.0 Paroxysmal atrial fibrillation; I11.9 Hypertensive heart disease without heart failure; W18.39XA Other fall on same level, initial encounter; Y93.89 Activity, other specified; Y92.099 Unspecified place in other non-institutional residence as the place of occurrence of the external cause; E11.9 Type 2 diabetes mellitus without complications; Z79.01 Long term (current) use of anticoagulants; I73.9 Peripheral vascular disease, unspecified; E03.9 Hypothyroidism, unspecified; K21.9 Gastro-esophageal reflux disease without esophagitis; G47.30 Sleep apnea, unspecified; G93.41 Metabolic encephalopathy; L03.90 Cellulitis, unspecified; Z20.822 Contact with and (suspected) exposure to COVID-19; R55 Syncope and collapse; R26.81 Unsteadiness on feet; F17.210 Nicotine dependence, cigarettes, uncomplicated; R10.9 Unspecified abdominal pain; T07.XXXA Unspecified multiple injuries, initial encounter; E66.9 Obesity, unspecified; Z68.33 Body mass index [BMI] 33.0-33.9, adult; K85.90 Acute pancreatitis without necrosis or infection, unspecified; J44.9 Chronic obstructive pulmonary disease, unspecified; Z99.81 Dependence on supplemental oxygen; M62.81 Muscle weakness (generalized); R51.9 Headache, unspecified
CPT/HCPCS: 36415; 70450-TC; 71275-TC; 72125-TC; 74177-TC; 80053; 80061; 82550; 82607; 82962; 83036; 83605; 83721; 83735; 83880; 84443; 84484; 85025; 85610; 85730; 87040; 93005; 93010; 93880-TC; 93970-TC; 96361; 96365; 96372; 97116-GP; 97161-GP; 99285-25; C9803; G0378; Q9967; U0003

== ENCOUNTER 2020-07-25 17:23 | Inpatient (IN) | payer OTHER ==
[2020-07-25] MEDS ORDERED: PIPERACILLIN/TAZOB 4.5 GM 4.5 GM/100 ML BAG IVPB ONE (19:42)
[2020-07-25] MEDS ORDERED: VANCOMYCIN HCL 1,500 MG in DEXTROSE 5%-WATER - 500 ML IVPB ONE (19:44)
[2020-07-25 20:33] LABS: BASO % 0.7 % (0-2.0); EOS % 5.4 % (0-4.5); HEMATOCRIT 37.5 % (35.4-49); HEMOGLOBIN 12.8 GM/dL (11.7-16.9); INR 1.27 (0.83-1.09); LYMPH % 29.6 % (8-40); MCH 31.7 pg (25.7-33.7); MCHC 34.1 g/dl (32.0-35.9); MEAN PLT VOLUME 8.7 fl (7.5-11.1); MONO % 8.6 % (3.8-10.2); NEUT % 55.7 % (42.8-82.8); PLATELET COUNT 145 K/MM3 (134-434); PROTHROMBIN TIME (PATIENT) 15.5 SEC (9.7-13.0); RBC 4.03 M/mm3 (4.00-5.60); RDW 13.2 % (11.9-15.9); WHITE BLOOD COUNT 6.4 K/mm3 (4.0-10.0)
[2020-07-25 20:44] LABS: CHLORIDE 106 mmol/L (98-107); POTASSIUM 3.6 mmol/L (3.5-5.1); SODIUM 139 mmol/L (136-145)
[2020-07-25 20:46] LABS: ALBUMIN 3.3 g/dl (3.4-5.0); CALCIUM 8.6 mg/dL (8.5-10.1)
[2020-07-25 20:47] LABS: ANION GAP 4 MMOL/L (8-16); BLOOD UREA NITROGEN 14.8 mg/dL (7-18); CO2 29 mmol/L (21-32); GLUCOSE,RANDOM 198 mg/dL (74-106)
[2020-07-25 20:49] LABS: SGPT/ALT 14 U/L (13-61)
[2020-07-25 20:51] LABS: BILIRUBIN,TOTAL 0.4 mg/dL (0.2-1); CREATININE 0.8 mg/dL (0.55-1.3); SGOT/AST 18 U/L (15-37); TOT PROT 6.3 g/dl (6.4-8.2)
[2020-07-25 20:52] LABS: ALK PHOS 141 U/L (45-117)
[2020-07-25 21:20] LABS: ERYTHROCYTE SEDIMENTATION RATE 19 mm/hr (0-20)
[2020-07-25] MEDS ORDERED: CYCLOBENZAPRINE HCL 10 MG TABLET (FP) PO ONE (23:03)
[2020-07-25] MEDS ORDERED: CYCLOBENZAPRINE HCL 10 MG TABLET (FP) ONE (23:32)
[2020-07-25] MEDS ORDERED: CARBIDOPA/LEVODOPA 25/100 TABLET (FP) ONE (23:33)
[2020-07-26] MEDS ORDERED: ACETAMINOPHEN 1000 MG/100 ML VIAL (NON FORMULARY) IVPB ONE ×2 (00:27→07:00)
[2020-07-26] MEDS ORDERED: FUROSEMIDE 20 MG TABLET (FP) PO SCH (02:15)
[2020-07-26] MEDS ORDERED: ENOXAPARIN NA (PORCINE) 100 MG/1 ML DISP.SYRIN SQ SCH (02:45)
[2020-07-26] MEDS ORDERED: SOTALOL HCL 80 MG TABLET (FP) PO SCH (06:00)
[2020-07-26] MEDS: INSULIN SLIDING SCALE (NOVOLOG) 1 VIAL SQ SCH ×4 (06:42→21:15)
[2020-07-26] MEDS: PANTOPRAZOLE 40 MG TABLET PO SCH (06:43)
[2020-07-26] MEDS: LEVOTHYROXINE NA 25 MCG TABLET (FP) PO SCH (06:43)
[2020-07-26 08:26] LABS: HEMATOCRIT 35.9 % (35.4-49); HEMOGLOBIN 12.5 GM/dL (11.7-16.9); MCH 32.2 pg (25.7-33.7); MCHC 34.9 g/dl (32.0-35.9); MEAN CELL VOLUME 92.5 fl (80-96); MEAN PLT VOLUME 8.2 fl (7.5-11.1); PLATELET COUNT 135 K/MM3 (134-434); RBC 3.88 M/mm3 (4.00-5.60); RDW 13.2 % (11.9-15.9); WHITE BLOOD COUNT 6.7 K/mm3 (4.0-10.0)
[2020-07-26 08:44] LABS: POTASSIUM 3.6 mmol/L (3.5-5.1)
[2020-07-26 08:52] LABS: BLOOD UREA NITROGEN 15.9 mg/dL (7-18); CALCIUM 8.7 mg/dL (8.5-10.1)
[2020-07-26 08:56] LABS: CREATININE 0.8 mg/dL (0.55-1.3)
[2020-07-26] MEDS ORDERED: PT OWN MED DRAWER 7, Y5N ONE ×3 (09:20→19:59)
[2020-07-26] MEDS: TIOTROPIUM BROMIDE 2.5 MCG (SPIRIVA) RESPIMAT INHALER IH SCH (09:44)
[2020-07-26] MEDS: ENOXAPARIN NA (PORCINE) 100 MG/1 ML DISP.SYRIN SQ SCH ×2 (09:44→21:14)
[2020-07-26] MEDS: TAMSULOSIN HCL 0.4 MG CAP PO SCH (09:44)
[2020-07-26] MEDS: VALSARTAN 40 MG TABLET PO SCH (09:44)
[2020-07-26] MEDS: RANOLAZINE E.R. 500 MG TABLET (FP) PO SCH ×2 (09:44→21:14)
[2020-07-26] MEDS ORDERED: PATIENT'S OWN MEDICATION (NON-FORMULARY) (Omeprazole 20 MG Capsule.Dr) PO SCH (10:00)
[2020-07-26] MEDS ORDERED: PATIENT'S OWN MEDICATION (NON-FORMULARY) (Tiotropium Bromide [Spiriva] 18 MCG Cap.W.Dev) PO SCH (10:00)
[2020-07-26] MEDS ORDERED: PATIENT'S OWN MEDICATION (NON-FORMULARY) (Linaclotide [Linzess] 145 MCG Capsule) PO SCH (10:00)
[2020-07-26] MEDS: CEFAZOLIN 2 GM/D5W 2 GM/50 ML ML IVPB SCH ×2 (12:01→17:52)
[2020-07-26] MEDS: SOTALOL HCL 80 MG TABLET (FP) PO SCH ×2 (14:08→21:15)
[2020-07-26] MEDS ORDERED: RIVAROXABAN 20 MG TABLET PO SCH (18:00)
[2020-07-26] MEDS: oxyCODONE HCL 5 MG TABLET PO PRN ×2 (21:15→21:16)
[2020-07-26] MEDS ORDERED: ATORVASTATIN CA 80 MG TABLET (FP) PO SCH (22:00)
[2020-07-26] MEDS ORDERED: EZETIMIBE 10 MG TABLET (FP) PO SCH (22:00)
[2020-07-26] MEDS ORDERED: DOCUSATE SODIUM 100 MG CAPSULE (FP) PO SCH (22:00)
[2020-07-27] MEDS ORDERED: PT OWN MED DRAWER 7, Y5N ONE ×4 (01:24→14:10)
[2020-07-27] MEDS: oxyCODONE HCL 5 MG TABLET PO PRN (01:32)
[2020-07-27] MEDS: CEFAZOLIN 2 GM/D5W 2 GM/50 ML ML IVPB SCH ×2 (01:32→10:23)
[2020-07-27] MEDS ORDERED: ACETAMINOPHEN 325 MG TABLET (FP) ONE (02:29)
[2020-07-27] MEDS: LEVOTHYROXINE NA 25 MCG TABLET (FP) PO SCH (06:13)
[2020-07-27] MEDS: INSULIN SLIDING SCALE (NOVOLOG) 1 VIAL SQ SCH ×2 (06:13→12:24)
[2020-07-27] MEDS: PANTOPRAZOLE 40 MG TABLET PO SCH (06:13)
[2020-07-27 06:57] VITALS: PULSE 62
[2020-07-27] MEDS: RANOLAZINE E.R. 500 MG TABLET (FP) PO SCH (10:21)
[2020-07-27] MEDS: TAMSULOSIN HCL 0.4 MG CAP PO SCH (10:21)
[2020-07-27] MEDS: SOTALOL HCL 80 MG TABLET (FP) PO SCH (10:22)
[2020-07-27] MEDS: ENOXAPARIN NA (PORCINE) 100 MG/1 ML DISP.SYRIN SQ SCH (10:23)
[2020-07-27] MEDS: VALSARTAN 40 MG TABLET PO SCH (10:23)
[2020-07-27] MEDS: TIOTROPIUM BROMIDE 2.5 MCG (SPIRIVA) RESPIMAT INHALER IH SCH (11:20)
[2020-07-27 11:37] VITALS: BP 151/87; TEMP 98.9
[2020-07-27 15:58] VITALS: BMI 31.0
[2020-07-27] MEDS ORDERED: INSULIN (LEVEMIR) 100 UNITS/ML UNITS SQ SCH (22:00)
== END 2020-07-27 14:48 | disposition home health service (06) | DRG 603 ==
LOC: JER 17:23 → JERBED 21:36 → J8W 07-26 01:30
PROVIDERS: ADMIT Family Medicine; ATTEND Family Medicine
DX: L03.115 Cellulitis of right lower limb (principal); A52.16 Charcot's arthropathy (tabetic); E11.610 Type 2 diabetes mellitus with diabetic neuropathic arthropathy; G20 Parkinson's disease; S92.912A Unspecified fracture of left toe(s), initial encounter for closed fracture; I73.9 Peripheral vascular disease, unspecified; I10 Essential (primary) hypertension; E78.00 Pure hypercholesterolemia, unspecified; E03.9 Hypothyroidism, unspecified; I48.91 Unspecified atrial fibrillation; F17.210 Nicotine dependence, cigarettes, uncomplicated
CPT/HCPCS: 36415; 71045-TC-FY; 73630-TC-LT; 76705-TC; 80048; 80053; 82962; 83036; 84443; 85025; 85027; 85610; 85651; 86140; 87040; 93971-TC; 97116-GP; 97161-GP; 99285-25; C9803; J0131; U0003

== ENCOUNTER 2020-10-05 05:40 | Inpatient (IN) | payer OTHER ==
[2020-10-05] MEDS ORDERED: ACETAMINOPHEN 1000 MG/100 ML VIAL (NON FORMULARY) IVPB ONE (06:13)
[2020-10-05 06:16] VITALS: BMI 32.9
[2020-10-05] MEDS ORDERED: MAG HYDROX/AL HYDROX/SIMETH 30 ML UNIT-DOSE CUP PO ONE (06:25)
[2020-10-05] MEDS ORDERED: FAMOTIDINE 20 MG/50 ML IVPB 20 MG/50 ML MG IVPB ONE ×2 (06:25→06:44)
[2020-10-05] MEDS ORDERED: ACETAMINOPHEN INJECTION 100 ML IVPB ONE (06:26)
[2020-10-05] MEDS ORDERED: MAG HYDROX/AL HYDROX/SIMETH 30 ML UNIT-DOSE CUP ONE (06:43)
[2020-10-05 06:52] LABS: BASO % 0.4 % (0-2.0); EOS % 2.7 % (0-4.5); HEMATOCRIT 40.1 % (35.4-49); HEMOGLOBIN 14.2 GM/dL (11.7-16.9); LYMPH % 9.3 % (8-40); MCH 33.1 pg (25.7-33.7); MCHC 35.5 g/dl (32.0-35.9); MEAN CELL VOLUME 93.2 fl (80-96); MEAN PLT VOLUME 8.3 fl (7.5-11.1); MONO % 7.6 % (3.8-10.2); PLATELET COUNT 160 K/MM3 (134-434); RDW 12.9 % (11.9-15.9); WHITE BLOOD COUNT 10.6 K/mm3 (4.0-10.0)
[2020-10-05 07:00] LABS: INR 0.95 (0.83-1.09); PROTHROMBIN TIME (PATIENT) 11.7 SEC (9.7-13.0)
[2020-10-05 07:07] LABS: CHLORIDE 105 mmol/L (98-107); SODIUM 139 mmol/L (136-145)
[2020-10-05 07:09] LABS: CALCIUM 8.6 mg/dL (8.5-10.1)
[2020-10-05 07:10] LABS: ALBUMIN 3.2 g/dl (3.4-5.0); ANION GAP 5 MMOL/L (8-16); BLOOD UREA NITROGEN 17.7 mg/dL (7-18); CO2 29 mmol/L (21-32); GLUCOSE,RANDOM 232 mg/dL (74-106); LIPASE 106 U/L (73-393)
[2020-10-05 07:13] LABS: CREATININE 0.8 mg/dL (0.55-1.3); SGOT/AST 30 U/L (15-37); SGPT/ALT 22 U/L (13-61)
[2020-10-05 07:14] LABS: BILIRUBIN,TOTAL 0.4 mg/dL (0.2-1); TOT PROT 6.5 g/dl (6.4-8.2)
[2020-10-05 07:15] LABS: ALK PHOS 135 U/L (45-117)
[2020-10-05] MEDS ORDERED: morphine CARPU-JECT 4 MG/1 ML DISP.SYRIN IVPUSH ONE (09:25)
[2020-10-05] MEDS ORDERED: morphine SULFATE 4 MG/ML VIAL ONE (09:52)
[2020-10-05 10:07] LABS: ANISOCYTOSIS 0; MACROCYTOSIS 0; PLATELET ESTIMATE NORMAL
[2020-10-05] MEDS ORDERED: MAGNESIUM SULF 50% (8.12 MEQ/2 ML-1 GM VIAL) IVPB ONE (12:43)
[2020-10-05] MEDS ORDERED: ONDANSETRON 4 MG/2 ML VIAL IVPUSH ONE (12:43)
[2020-10-05] MEDS ORDERED: ONDANSETRON 4 MG/2 ML VIAL ONE ×2 (12:47→15:38)
[2020-10-05] MEDS ORDERED: MAGNESIUM SULF 50% (8.12 MEQ/2 ML-1 GM VIAL) ONE (12:47)
[2020-10-05] MEDS: ONDANSETRON 4 MG/2 ML VIAL IVPUSH PRN (15:42)
[2020-10-05] MEDS: D5-1/2NS+20 MEQ KCL - 20 MEQ/1,000 ML INFUS.BAG IV SCH (15:42)
[2020-10-05] MEDS: PRAMIPEXOLE DIHYDROCHLORIDE 0.25 MG TABLET PO SCH (22:48)
[2020-10-06] MEDS: D5-1/2NS+20 MEQ KCL - 20 MEQ/1,000 ML INFUS.BAG IV SCH ×2 (02:30→20:09)
[2020-10-06] MEDS: PRAMIPEXOLE DIHYDROCHLORIDE 0.25 MG TABLET PO SCH ×3 (05:28→21:01)
[2020-10-06] MEDS ORDERED: ACETAMINOPHEN 325 MG TABLET (FP) PO ONE (05:29)
[2020-10-06 06:39] LABS: BASO % 2.4 % (0-2.0); EOS % 4.3 % (0-4.5); HEMATOCRIT 38.5 % (35.4-49); HEMOGLOBIN 13.6 GM/dL (11.7-16.9); LYMPH % 18.8 % (8-40); MCH 32.8 pg (25.7-33.7); MCHC 35.3 g/dl (32.0-35.9); MEAN PLT VOLUME 8.2 fl (7.5-11.1); MONO % 13.6 % (3.8-10.2); NEUT % 60.9 % (42.8-82.8); PLATELET COUNT 156 K/MM3 (134-434); RBC 4.14 M/mm3 (4.00-5.60); RDW 13.5 % (11.9-15.9); WHITE BLOOD COUNT 6.8 K/mm3 (4.0-10.0)
[2020-10-06 06:51] LABS: INR 1.03 (0.83-1.09); PROTHROMBIN TIME (PATIENT) 12.4 SEC (9.7-13.0)
[2020-10-06 07:01] LABS: ALBUMIN 2.7 g/dl (3.4-5.0); CALCIUM 7.9 mg/dL (8.5-10.1)
[2020-10-06 07:02] LABS: BLOOD UREA NITROGEN 14.3 mg/dL (7-18); MAGNESIUM 2.1 mg/dL (1.8-2.4)
[2020-10-06 07:04] LABS: CREATININE 0.8 mg/dL (0.55-1.3); PHOSPHOROUS 2.8 mg/dL (2.5-4.9)
[2020-10-06 07:06] LABS: BILIRUBIN,TOTAL 0.4 mg/dL (0.2-1); TOT PROT 5.6 g/dl (6.4-8.2)
[2020-10-06] MEDS: TAMSULOSIN HCL 0.4 MG CAP PO SCH (09:49)
[2020-10-06 11:09] LABS: EPI CELLS 14 /uL (0-25.1); HYALINE CASTS 10 /uL (0-3.1); PH,URINE 5.5 (5.0-8.0); URINE APPEARANCE CLEAR; URINE BACTERIA 60 /uL (0-1359); URINE BILIRUBIN NEGATIVE (NEGATIVE); URINE COLOR DK YELLOW; URINE GLUCOSE (UA) 3+ (NEGATIVE); URINE KETONE TRACE (NEGATIVE); URINE LEUK ESTERASE NEGATIVE (NEGATIVE); URINE NITRITE NEGATIVE (NEGATIVE); URINE PROTEIN 3+ (NEGATIVE); URINE RBC 8 /uL (0-23.9); URINE WBC 6 /uL (0-25.8)
[2020-10-06] MEDS ORDERED: NICOTINE POLACRILEX 2 MG GUM BUC PRN (20:10)
[2020-10-06] MEDS ORDERED: RANOLAZINE E.R. 500 MG TABLET (FP) ONE (20:53)
[2020-10-06] MEDS: ATORVASTATIN CA 80 MG TABLET (FP) PO SCH (21:01)
[2020-10-06] MEDS: RANOLAZINE E.R. 1,000 MG TABLET (FP) PO SCH (21:01)
[2020-10-07] MEDS ORDERED: ACETAMINOPHEN 1000 MG/100 ML VIAL (NON FORMULARY) IVPB ONE (02:17)
[2020-10-07] MEDS: ARTIFICIAL TEARS (POLYVINYL ALCOHOL) OPTH DROPS OU PRN (02:26)
[2020-10-07] MEDS: PRAMIPEXOLE DIHYDROCHLORIDE 0.25 MG TABLET PO SCH ×3 (06:40→21:39)
[2020-10-07 07:38] LABS: BASO % 0.4 % (0-2.0); EOS % 4.4 % (0-4.5); HEMATOCRIT 35.5 % (35.4-49); HEMOGLOBIN 12.8 GM/dL (11.7-16.9); LYMPH % 26.5 % (8-40); MCH 33.5 pg (25.7-33.7); MEAN CELL VOLUME 93.1 fl (80-96); MEAN PLT VOLUME 8.3 fl (7.5-11.1); MONO % 10.6 % (3.8-10.2); NEUT % 58.1 % (42.8-82.8); PLATELET COUNT 151 K/MM3 (134-434); RBC 3.81 M/mm3 (4.00-5.60); RDW 13.1 % (11.9-15.9); WHITE BLOOD COUNT 5.7 K/mm3 (4.0-10.0)
[2020-10-07 07:49] LABS: CHLORIDE 106 mmol/L (98-107); SODIUM 139 mmol/L (136-145)
[2020-10-07 07:54] LABS: ALBUMIN 2.7 g/dl (3.4-5.0); CALCIUM 8.1 mg/dL (8.5-10.1)
[2020-10-07 07:55] LABS: ANION GAP 4 MMOL/L (8-16); BLOOD UREA NITROGEN 8.6 mg/dL (7-18); CO2 29 mmol/L (21-32); GLUCOSE,RANDOM 198 mg/dL (74-106)
[2020-10-07 07:57] LABS: SGOT/AST 10 U/L (15-37); SGPT/ALT < 6 U/L (13-61)
[2020-10-07 07:58] LABS: CREATININE 0.7 mg/dL (0.55-1.3)
[2020-10-07 07:59] LABS: BILIRUBIN,TOTAL 0.5 mg/dL (0.2-1); TOT PROT 5.8 g/dl (6.4-8.2)
[2020-10-07 08:00] LABS: ALK PHOS 108 U/L (45-117)
[2020-10-07] MEDS ORDERED: RANOLAZINE E.R. 500 MG TABLET (FP) ONE ×3 (08:49→21:10)
[2020-10-07] MEDS: D5-1/2NS+20 MEQ KCL - 20 MEQ/1,000 ML INFUS.BAG IV SCH (08:53)
[2020-10-07] MEDS: TAMSULOSIN HCL 0.4 MG CAP PO SCH (08:54)
[2020-10-07] MEDS: RANOLAZINE E.R. 1,000 MG TABLET (FP) PO SCH ×2 (09:00→21:38)
[2020-10-07] MEDS ORDERED: ACETAMINOPHEN 1000 MG/100 ML VIAL (NON FORMULARY) IVPB PRN (12:39)
[2020-10-07] MEDS: BACITRACIN 15 GM TUBE TOPICAL OINTMENT TP SCH (14:08)
[2020-10-07] MEDS: ACETAMINOPHEN 325 MG TABLET (FP) PO PRN ×2 (14:10→21:42)
[2020-10-07] MEDS: INSULIN SLIDING SCALE (NOVOLOG) 1 VIAL SQ SCH (16:55)
[2020-10-07] MEDS: ATORVASTATIN CA 80 MG TABLET (FP) PO SCH (21:38)
[2020-10-08] MEDS: MORPHINE SULFATE 2 MG/ML VIAL IVPUSH PRN (02:39)
[2020-10-08] MEDS ORDERED: INSULIN (NOVOLOG) ASPART 100 UNITS/ML 10ML VIAL ONE (06:38)
[2020-10-08] MEDS: PRAMIPEXOLE DIHYDROCHLORIDE 0.25 MG TABLET PO SCH ×3 (06:46→22:00)
[2020-10-08] MEDS: INSULIN SLIDING SCALE (NOVOLOG) 1 VIAL SQ SCH ×3 (06:47→16:57)
[2020-10-08] MEDS: ACETAMINOPHEN 325 MG TABLET (FP) PO PRN ×2 (06:48→22:07)
[2020-10-08 07:40] LABS: CREATININE 0.7 mg/dL (0.55-1.3)
[2020-10-08 07:41] LABS: ALBUMIN 2.9 g/dl (3.4-5.0); BLOOD UREA NITROGEN 5.3 mg/dL (7-18)
[2020-10-08 07:42] LABS: BILIRUBIN,TOTAL 0.4 mg/dL (0.2-1); TOT PROT 5.7 g/dl (6.4-8.2)
[2020-10-08 07:44] LABS: CALCIUM 8.1 mg/dL (8.5-10.1)
[2020-10-08] MEDS ORDERED: RANOLAZINE E.R. 500 MG TABLET (FP) ONE ×3 (08:45→20:45)
[2020-10-08] MEDS: TAMSULOSIN HCL 0.4 MG CAP PO SCH (09:05)
[2020-10-08] MEDS: RANOLAZINE E.R. 1,000 MG TABLET (FP) PO SCH ×2 (09:05→22:00)
[2020-10-08] MEDS: BACITRACIN 15 GM TUBE TOPICAL OINTMENT TP SCH (09:06)
[2020-10-08] MEDS ORDERED: PT OWN MED DRAWER 7, Y5N ONE (20:44)
[2020-10-08] MEDS: ATORVASTATIN CA 80 MG TABLET (FP) PO SCH (22:00)
[2020-10-08] MEDS: metroNIDAZOLE 250 MG TABLET PO SCH (22:00)
[2020-10-08] MEDS: ONDANSETRON 4 MG/2 ML VIAL IVPUSH PRN (22:07)
[2020-10-09] MEDS: metroNIDAZOLE 250 MG TABLET PO SCH ×3 (05:39→21:04)
[2020-10-09] MEDS: PRAMIPEXOLE DIHYDROCHLORIDE 0.25 MG TABLET PO SCH ×3 (05:39→21:04)
[2020-10-09] MEDS: ARTIFICIAL TEARS (POLYVINYL ALCOHOL) OPTH DROPS OU PRN (05:43)
[2020-10-09] MEDS: INSULIN SLIDING SCALE (NOVOLOG) 1 VIAL SQ SCH ×3 (06:15→17:09)
[2020-10-09] MEDS ORDERED: INSULIN (LEVEMIR) 100 UNITS/ML UNITS SQ SCH (07:00)
[2020-10-09 08:01] LABS: CALCIUM 8.8 mg/dL (8.5-10.1)
[2020-10-09 08:02] LABS: ALBUMIN 2.9 g/dl (3.4-5.0); BLOOD UREA NITROGEN 5.9 mg/dL (7-18)
[2020-10-09 08:05] LABS: CREATININE 0.7 mg/dL (0.55-1.3)
[2020-10-09 08:06] LABS: BILIRUBIN,TOTAL 0.8 mg/dL (0.2-1); TOT PROT 5.9 g/dl (6.4-8.2)
[2020-10-09] MEDS: TAMSULOSIN HCL 0.4 MG CAP PO SCH (08:27)
[2020-10-09] MEDS ORDERED: RANOLAZINE E.R. 500 MG TABLET (FP) ONE ×3 (10:08→20:59)
[2020-10-09] MEDS: RANOLAZINE E.R. 1,000 MG TABLET (FP) PO SCH ×2 (10:11→21:05)
[2020-10-09] MEDS: amLODIPine BESYLATE 5 MG TABLET (FP) PO SCH (10:11)
[2020-10-09] MEDS: BACITRACIN 15 GM TUBE TOPICAL OINTMENT TP SCH (10:11)
[2020-10-09] MEDS: ACETAMINOPHEN 325 MG TABLET (FP) PO PRN ×2 (10:15→21:06)
[2020-10-09] MEDS ORDERED: amLODIPine BESYLATE 5 MG TABLET (FP) PO ONE (12:48)
[2020-10-09] MEDS: LOSARTAN POTASSIUM 50 MG TABLET PO SCH (14:06)
[2020-10-09] MEDS: ATORVASTATIN CA 80 MG TABLET (FP) PO SCH (21:04)
[2020-10-09] MEDS ORDERED: FAMOTIDINE 20 MG/50 ML IVPB 20 MG/50 ML MG IVPB ONE (21:10)
[2020-10-09] MEDS: ONDANSETRON 4 MG/2 ML VIAL IVPUSH PRN (21:12)
[2020-10-10] MEDS: ACETAMINOPHEN 325 MG TABLET (FP) PO PRN ×2 (02:12→06:38)
[2020-10-10] MEDS: MORPHINE SULFATE 2 MG/ML VIAL IVPUSH PRN (03:08)
[2020-10-10] MEDS: PRAMIPEXOLE DIHYDROCHLORIDE 0.25 MG TABLET PO SCH (06:38)
[2020-10-10] MEDS: metroNIDAZOLE 250 MG TABLET PO SCH (06:38)
[2020-10-10] MEDS: INSULIN SLIDING SCALE (NOVOLOG) 1 VIAL SQ SCH (06:42)
[2020-10-10] MEDS ORDERED: INSULIN (LEVEMIR) 100 UNITS/ML UNITS SQ SCH (07:00)
[2020-10-10 08:35] VITALS: BP 139/91; PULSE 99; TEMP 98.9
[2020-10-10] MEDS ORDERED: RANOLAZINE E.R. 500 MG TABLET (FP) ONE (08:42)
[2020-10-10] MEDS: TAMSULOSIN HCL 0.4 MG CAP PO SCH (08:45)
[2020-10-10] MEDS: amLODIPine BESYLATE 5 MG TABLET (FP) PO SCH (09:14)
[2020-10-10] MEDS: LOSARTAN POTASSIUM 50 MG TABLET PO SCH (09:14)
[2020-10-10] MEDS: BACITRACIN 15 GM TUBE TOPICAL OINTMENT TP SCH (09:17)
[2020-10-10] MEDS: RANOLAZINE E.R. 1,000 MG TABLET (FP) PO SCH (09:17)
== END 2020-10-10 12:50 | disposition home health service (06) | DRG 389 ==
LOC: JER 05:40 → JERBED 10:32 → J7W 16:32
PROVIDERS: ADMIT Family Medicine; ATTEND Family Medicine
DX: K56.600 Partial intestinal obstruction, unspecified as to cause (principal); K55.9 Vascular disorder of intestine, unspecified; K52.9 Noninfective gastroenteritis and colitis, unspecified; R10.31 Right lower quadrant pain; I48.91 Unspecified atrial fibrillation; Z68.32 Body mass index [BMI] 32.0-32.9, adult; K21.9 Gastro-esophageal reflux disease without esophagitis; E11.9 Type 2 diabetes mellitus without complications; E66.01 Morbid (severe) obesity due to excess calories; F17.210 Nicotine dependence, cigarettes, uncomplicated; I25.10 Atherosclerotic heart disease of native coronary artery without angina pectoris; E03.9 Hypothyroidism, unspecified
CPT/HCPCS: 36415; 71045-TC-FY; 74176-TC; 74177-TC; 80053; 81003; 82550; 82553; 82962; 83036; 83605; 83690; 83735; 84100; 84443; 84484; 85025; 85610; 85730; 87045; 87046; 87086; 87177; 87205; 87209; 93005; 93010; 99285-25; C9803; J0131; Q9967; U0003; U0005

== ENCOUNTER 2020-10-11 19:41 | Inpatient (IN) | payer OTHER ==
[2020-10-11 20:45] LABS: BASO % 0.7 % (0-2.0); EOS % 4.9 % (0-4.5); HEMATOCRIT 40.9 % (35.4-49); HEMOGLOBIN 13.9 GM/dL (11.7-16.9); MCHC 34.1 g/dl (32.0-35.9); MEAN CELL VOLUME 93.9 fl (80-96); MEAN PLT VOLUME 8.1 fl (7.5-11.1); MONO % 10.5 % (3.8-10.2); NEUT % 58.9 % (42.8-82.8); PLATELET COUNT 174 K/MM3 (134-434); RBC 4.35 M/mm3 (4.00-5.60); WHITE BLOOD COUNT 7.4 K/mm3 (4.0-10.0)
[2020-10-11] MEDS ORDERED: LACTATED RINGERS SOLUTION 1000 ML INFUS.BAG IV ONE (20:47)
[2020-10-11 20:53] LABS: INR 1.63 (0.83-1.09); PROTHROMBIN TIME (PATIENT) 19.4 SEC (9.7-13.0)
[2020-10-11 20:56] LABS: ACTIVATED PTT 40.7 SECONDS (25.2-36.5)
[2020-10-11 21:18] LABS: ANISOCYTOSIS 1+; MACROCYTOSIS 0; OVALOCYTE 1+; PLATELET ESTIMATE DECREASED; TARGET CELLS 1+
[2020-10-11] MEDS ORDERED: ACETAMINOPHEN 1000 MG/100 ML VIAL (NON FORMULARY) IVPB ONE (21:33)
[2020-10-11] MEDS ORDERED: ACETAMINOPHEN INJECTION 100 ML IVPB ONE (21:41)
[2020-10-11 21:45] LABS: VENOUS BASE EXCESS -0.1 mmol/L (-2-2); VENOUS O2 SATURATION 60.4 % (70-80); VENOUS PCO2 46.4 mmHg (38-52); VENOUS PH 7.361 (7.310-7.410)
[2020-10-11 21:48] LABS: CHLORIDE 103 mmol/L (98-107); SODIUM 138 mmol/L (136-145)
[2020-10-11 21:51] LABS: ALBUMIN 3.4 g/dl (3.4-5.0); ANION GAP 5 MMOL/L (8-16); BLOOD UREA NITROGEN 14.4 mg/dL (7-18); CO2 30 mmol/L (21-32)
[2020-10-11 21:53] LABS: CALCIUM 8.9 mg/dL (8.5-10.1)
[2020-10-11 21:54] LABS: CREATININE 0.9 mg/dL (0.55-1.3); MAGNESIUM 2.1 mg/dL (1.8-2.4)
[2020-10-11 21:55] LABS: BILIRUBIN,TOTAL 0.4 mg/dL (0.2-1); GLUCOSE,RANDOM 102 mg/dL (74-106); SGOT/AST 29 U/L (15-37); TOT PROT 6.3 g/dl (6.4-8.2)
[2020-10-11 21:56] LABS: ALK PHOS 116 U/L (45-117)
[2020-10-11 22:00] LABS: SGPT/ALT 11 U/L (13-61)
[2020-10-11 22:02] LABS: N-TERMINAL BNP 31.7 pg/ml (5-125)
[2020-10-12] MEDS ORDERED: KETOROLAC TROMETHAMINE 30 MG/1 ML VIAL IVPUSH ONE (00:06)
[2020-10-12] MEDS ORDERED: GABAPENTIN 100 MG CAPSULE PO ONE (00:07)
[2020-10-12] MEDS ORDERED: KETOROLAC TROMETHAMINE 30 MG/1 ML VIAL ONE (00:08)
[2020-10-12] MEDS ORDERED: PREGABALIN 75 MG CAPSULE PO ONE (00:08)
[2020-10-12] MEDS ORDERED: PREGABALIN 25 MG CAPSULE ONE ×3 (00:21→14:04)
[2020-10-12] MEDS ORDERED: PREGABALIN 50 MG CAPSULE ONE ×3 (00:21→14:04)
[2020-10-12] MEDS ORDERED: ACETAMINOPHEN 325 MG TABLET (FP) ONE (05:45)
[2020-10-12 07:13] LABS: BASO % 0.7 % (0-2.0); EOS % 5.7 % (0-4.5); HEMATOCRIT 40.3 % (35.4-49); LYMPH % 30.6 % (8-40); MCH 32.2 pg (25.7-33.7); MCHC 34.7 g/dl (32.0-35.9); MEAN CELL VOLUME 92.8 fl (80-96); MEAN PLT VOLUME 8.3 fl (7.5-11.1); MONO % 9.8 % (3.8-10.2); NEUT % 53.2 % (42.8-82.8); PLATELET COUNT 157 K/MM3 (134-434); RBC 4.34 M/mm3 (4.00-5.60); RDW 13.2 % (11.9-15.9)
[2020-10-12 07:35] LABS: BLOOD UREA NITROGEN 15.6 mg/dL (7-18); CALCIUM 8.6 mg/dL (8.5-10.1)
[2020-10-12 07:36] LABS: MAGNESIUM 2.1 mg/dL (1.8-2.4)
[2020-10-12 08:23] LABS: ANISOCYTOSIS 1+; MACROCYTOSIS 0; PLATELET ESTIMATE DECREASED
[2020-10-12] MEDS ORDERED: FUROSEMIDE 40 MG TABLET (FP) ONE (09:21)
[2020-10-12] MEDS ORDERED: amLODIPine BESYLATE 5 MG TABLET (FP) ONE (09:22)
[2020-10-12] MEDS ORDERED: PANTOPRAZOLE 40 MG TABLET ONE (09:22)
[2020-10-12] MEDS ORDERED: LOSARTAN POTASSIUM 50 MG TABLET ONE (09:23)
[2020-10-12] MEDS ORDERED: LEVOTHYROXINE NA 25 MCG TABLET (FP) ONE (09:23)
[2020-10-12] MEDS ORDERED: buPROPion HCL 100 MG TABLET ONE (09:24)
[2020-10-12] MEDS ORDERED: TAMSULOSIN HCL 0.4 MG CAP ONE (09:24)
[2020-10-12] MEDS ORDERED: sitaGLIPtin PHOSPHATE 50 MG TABLET ONE (09:24)
[2020-10-12] MEDS: LEVOTHYROXINE NA 25 MCG TABLET (FP) PO SCH (09:39)
[2020-10-12] MEDS: TAMSULOSIN HCL 0.4 MG CAP PO SCH (09:40)
[2020-10-12] MEDS: PREGABALIN 25 MG CAPSULE PO SCH ×3 (09:40→21:30)
[2020-10-12] MEDS: LOSARTAN POTASSIUM 50 MG TABLET PO SCH (10:24)
[2020-10-12] MEDS: amLODIPine BESYLATE 5 MG TABLET (FP) PO SCH (10:25)
[2020-10-12] MEDS: FUROSEMIDE 40 MG TABLET (FP) PO SCH (10:25)
[2020-10-12] MEDS: PANTOPRAZOLE 40 MG TABLET PO SCH (10:25)
[2020-10-12] MEDS: RANOLAZINE E.R. 500 MG TABLET (FP) PO SCH ×2 (10:25→21:30)
[2020-10-12] MEDS: PRAMIPEXOLE DIHYDROCHLORIDE 0.25 MG TABLET PO SCH ×2 (14:03→21:30)
[2020-10-12 21:00] VITALS: BMI 31.4
[2020-10-12] MEDS: ATORVASTATIN CA 80 MG TABLET (FP) PO SCH (21:30)
[2020-10-12] MEDS: EZETIMIBE 10 MG TABLET (FP) PO SCH (21:30)
[2020-10-13 00:38] LABS: PH,URINE 6.5 (5.0-8.0); URINE APPEARANCE CLEAR; URINE BILIRUBIN NEGATIVE (NEGATIVE); URINE COLOR YELLOW; URINE GLUCOSE (UA) 3+ (NEGATIVE); URINE KETONE NEGATIVE (NEGATIVE); URINE LEUK ESTERASE NEGATIVE (NEGATIVE); URINE NITRITE NEGATIVE (NEGATIVE); URINE PROTEIN TRACE (NEGATIVE)
[2020-10-13] MEDS: ACETAMINOPHEN 500 MG TABLET (FP) PO PRN (01:19)
[2020-10-13] MEDS ORDERED: LIDOCAINE 5% TOPICAL PATCH TP ONE (05:23)
[2020-10-13] MEDS: PREGABALIN 25 MG CAPSULE PO SCH ×3 (05:57→22:09)
[2020-10-13] MEDS: PRAMIPEXOLE DIHYDROCHLORIDE 0.25 MG TABLET PO SCH ×3 (05:58→22:09)
[2020-10-13] MEDS: LEVOTHYROXINE NA 25 MCG TABLET (FP) PO SCH (06:00)
[2020-10-13] MEDS: TAMSULOSIN HCL 0.4 MG CAP PO SCH (08:50)
[2020-10-13] MEDS: RANOLAZINE E.R. 500 MG TABLET (FP) PO SCH ×2 (10:34→22:08)
[2020-10-13] MEDS: FUROSEMIDE 40 MG TABLET (FP) PO SCH (10:34)
[2020-10-13] MEDS: PANTOPRAZOLE 40 MG TABLET PO SCH (10:34)
[2020-10-13] MEDS: amLODIPine BESYLATE 5 MG TABLET (FP) PO SCH (10:34)
[2020-10-13] MEDS: LOSARTAN POTASSIUM 50 MG TABLET PO SCH (10:34)
[2020-10-13] MEDS ORDERED: DOCUSATE SODIUM 100 MG CAPSULE (FP) PO PRN (10:46)
[2020-10-13] MEDS ORDERED: MAGNESIUM HYDROX 2400MG/30ML ORAL SUSPENSION 30 ML CUP PO ONE (11:15)
[2020-10-13] MEDS ORDERED: BISACODYL 10 MG SUPP.RECT PR PRN (16:29)
[2020-10-13] MEDS: RIVAROXABAN 20 MG TABLET PO SCH ×2 (16:50→17:01)
[2020-10-13] MEDS: ATORVASTATIN CA 80 MG TABLET (FP) PO SCH (22:09)
[2020-10-13] MEDS: EZETIMIBE 10 MG TABLET (FP) PO SCH (22:09)
[2020-10-13] MEDS: LIDOCAINE PATCH REMOVAL MC SCH (22:09)
[2020-10-14] MEDS: ACETAMINOPHEN 500 MG TABLET (FP) PO PRN (04:32)
[2020-10-14] MEDS: PREGABALIN 25 MG CAPSULE PO SCH ×3 (06:15→22:17)
[2020-10-14] MEDS: PRAMIPEXOLE DIHYDROCHLORIDE 0.25 MG TABLET PO SCH ×3 (06:15→22:17)
[2020-10-14] MEDS: LEVOTHYROXINE NA 25 MCG TABLET (FP) PO SCH (06:16)
[2020-10-14] MEDS: LOSARTAN POTASSIUM 50 MG TABLET PO SCH (09:46)
[2020-10-14] MEDS: PANTOPRAZOLE 40 MG TABLET PO SCH (09:46)
[2020-10-14] MEDS: TAMSULOSIN HCL 0.4 MG CAP PO SCH (09:46)
[2020-10-14] MEDS: amLODIPine BESYLATE 5 MG TABLET (FP) PO SCH (09:46)
[2020-10-14] MEDS: RANOLAZINE E.R. 500 MG TABLET (FP) PO SCH ×2 (09:47→22:17)
[2020-10-14] MEDS: FUROSEMIDE 40 MG TABLET (FP) PO SCH (09:47)
[2020-10-14] MEDS ORDERED: MAGNESIUM HYDROX 2400MG/30ML ORAL SUSPENSION 30 ML CUP PO ONE (10:11)
[2020-10-14] MEDS: RIVAROXABAN 20 MG TABLET PO SCH ×2 (18:07→18:13)
[2020-10-14] MEDS ORDERED: DOCUSATE SODIUM 100 MG CAPSULE (FP) PO SCH (22:00)
[2020-10-14] MEDS: ATORVASTATIN CA 80 MG TABLET (FP) PO SCH (22:17)
[2020-10-14] MEDS: LIDOCAINE PATCH REMOVAL MC SCH (22:17)
[2020-10-14] MEDS: EZETIMIBE 10 MG TABLET (FP) PO SCH (22:17)
[2020-10-15] MEDS: ACETAMINOPHEN 500 MG TABLET (FP) PO PRN ×3 (00:21→17:20)
[2020-10-15] MEDS: LEVOTHYROXINE NA 25 MCG TABLET (FP) PO SCH (06:15)
[2020-10-15] MEDS: PREGABALIN 25 MG CAPSULE PO SCH ×3 (06:15→21:20)
[2020-10-15] MEDS: PRAMIPEXOLE DIHYDROCHLORIDE 0.25 MG TABLET PO SCH ×3 (06:16→21:22)
[2020-10-15] MEDS: PANTOPRAZOLE 40 MG TABLET PO SCH (09:54)
[2020-10-15] MEDS: RANOLAZINE E.R. 500 MG TABLET (FP) PO SCH ×2 (09:54→21:20)
[2020-10-15] MEDS: TAMSULOSIN HCL 0.4 MG CAP PO SCH (09:54)
[2020-10-15] MEDS: FUROSEMIDE 40 MG TABLET (FP) PO SCH (09:54)
[2020-10-15] MEDS: LOSARTAN POTASSIUM 50 MG TABLET PO SCH (09:54)
[2020-10-15] MEDS: amLODIPine BESYLATE 5 MG TABLET (FP) PO SCH (09:57)
[2020-10-15] MEDS: POLYETHYLENE GLYCOL 3350 119 GM BTL PO SCH ×2 (10:26→21:23)
[2020-10-15] MEDS ORDERED: PT OWN MED DRAWER 7, Y5N ONE (12:27)
[2020-10-15] MEDS: NICOTINE 14 MG/24 HOURS TOPICAL PATCH TD SCH (14:08)
[2020-10-15] MEDS: RIVAROXABAN 20 MG TABLET PO SCH (17:19)
[2020-10-15] MEDS: ATORVASTATIN CA 80 MG TABLET (FP) PO SCH (21:21)
[2020-10-15] MEDS: EZETIMIBE 10 MG TABLET (FP) PO SCH (21:21)
[2020-10-15] MEDS: LIDOCAINE 5% TOPICAL PATCH TP SCH (22:22)
[2020-10-16] MEDS: ACETAMINOPHEN 500 MG TABLET (FP) PO PRN ×2 (00:38→11:47)
[2020-10-16] MEDS: LIDOCAINE PATCH REMOVAL MC SCH ×2 (01:35→21:46)
[2020-10-16] MEDS: PRAMIPEXOLE DIHYDROCHLORIDE 0.25 MG TABLET PO SCH ×3 (05:55→21:45)
[2020-10-16] MEDS: PREGABALIN 25 MG CAPSULE PO SCH ×3 (05:55→21:46)
[2020-10-16] MEDS: LEVOTHYROXINE NA 25 MCG TABLET (FP) PO SCH (06:00)
[2020-10-16] MEDS: amLODIPine BESYLATE 5 MG TABLET (FP) PO SCH (09:28)
[2020-10-16] MEDS: LOSARTAN POTASSIUM 50 MG TABLET PO SCH (09:28)
[2020-10-16] MEDS: TAMSULOSIN HCL 0.4 MG CAP PO SCH (09:28)
[2020-10-16] MEDS: PANTOPRAZOLE 40 MG TABLET PO SCH (09:28)
[2020-10-16] MEDS: NICOTINE 14 MG/24 HOURS TOPICAL PATCH TD SCH (09:28)
[2020-10-16] MEDS: RANOLAZINE E.R. 500 MG TABLET (FP) PO SCH ×2 (09:29→21:45)
[2020-10-16] MEDS: FUROSEMIDE 40 MG TABLET (FP) PO SCH (09:29)
[2020-10-16] MEDS: POLYETHYLENE GLYCOL 3350 119 GM BTL PO SCH ×2 (09:31→21:46)
[2020-10-16] MEDS: metFORMIN HCL 500 MG TABLET (FP) PO SCH (17:07)
[2020-10-16] MEDS: RIVAROXABAN 20 MG TABLET PO SCH (17:07)
[2020-10-16] MEDS ORDERED: INSULIN (NOVOLOG) ASPART 100 UNITS/ML 10ML VIAL SQ ONE (17:30)
[2020-10-16] MEDS ORDERED: INSULIN REGULAR HUMAN 100 UNITS/ML *VIAL SQ ONE (17:30)
[2020-10-16] MEDS: LIDOCAINE 5% TOPICAL PATCH TP SCH (21:44)
[2020-10-16] MEDS: ATORVASTATIN CA 80 MG TABLET (FP) PO SCH (21:45)
[2020-10-16] MEDS: EZETIMIBE 10 MG TABLET (FP) PO SCH (21:45)
[2020-10-17] MEDS: PREGABALIN 25 MG CAPSULE PO SCH ×2 (05:48→13:33)
[2020-10-17] MEDS: PRAMIPEXOLE DIHYDROCHLORIDE 0.25 MG TABLET PO SCH ×2 (05:50→13:33)
[2020-10-17] MEDS: metFORMIN HCL 500 MG TABLET (FP) PO SCH (06:00)
[2020-10-17] MEDS: LEVOTHYROXINE NA 25 MCG TABLET (FP) PO SCH (06:00)
[2020-10-17] MEDS ORDERED: INSULIN (NOVOLOG) ASPART 100 UNITS/ML 10ML VIAL SQ ONE (06:10)
[2020-10-17] MEDS: TAMSULOSIN HCL 0.4 MG CAP PO SCH (07:58)
[2020-10-17] MEDS: ACETAMINOPHEN 500 MG TABLET (FP) PO PRN (08:09)
[2020-10-17] MEDS: RANOLAZINE E.R. 500 MG TABLET (FP) PO SCH (09:24)
[2020-10-17] MEDS: FUROSEMIDE 40 MG TABLET (FP) PO SCH (09:24)
[2020-10-17] MEDS: NICOTINE 14 MG/24 HOURS TOPICAL PATCH TD SCH (09:24)
[2020-10-17] MEDS: amLODIPine BESYLATE 5 MG TABLET (FP) PO SCH (09:24)
[2020-10-17] MEDS: PANTOPRAZOLE 40 MG TABLET PO SCH (09:24)
[2020-10-17] MEDS: LOSARTAN POTASSIUM 50 MG TABLET PO SCH (09:25)
[2020-10-17] MEDS: POLYETHYLENE GLYCOL 3350 119 GM BTL PO SCH (09:25)
[2020-10-17] MEDS ORDERED: metFORMIN HCL 500 MG TABLET (FP) PO SCH (10:24)
[2020-10-17] MEDS ORDERED: ACETAMINOPHEN 325 MG TABLET (FP) PO PRN ×2 (10:26→12:01)
[2020-10-17] MEDS ORDERED: traMADol HCL 50 MG TABLET PO PRN (12:01)
[2020-10-17] MEDS: INSULIN SLIDING SCALE (NOVOLOG) 1 VIAL SQ SCH ×2 (12:09→16:29)
[2020-10-17 14:59] VITALS: BP 126/56; PULSE 107; TEMP 98
[2020-10-17] MEDS: RIVAROXABAN 20 MG TABLET PO SCH (17:00)
== END 2020-10-17 18:42 | disposition home health service (06) | DRG 57 ==
LOC: JER 19:41 → JERBED 20:44 → J6S 10-12 15:01
PROVIDERS: ADMIT Hospitalist; ATTEND Family Medicine
DX: G20 Parkinson's disease (principal); E86.0 Dehydration; R53.1 Weakness; I48.0 Paroxysmal atrial fibrillation; I25.10 Atherosclerotic heart disease of native coronary artery without angina pectoris; I50.9 Heart failure, unspecified; J44.9 Chronic obstructive pulmonary disease, unspecified; I10 Essential (primary) hypertension; E78.5 Hyperlipidemia, unspecified; R26.2 Difficulty in walking, not elsewhere classified; E11.40 Type 2 diabetes mellitus with diabetic neuropathy, unspecified; F17.210 Nicotine dependence, cigarettes, uncomplicated; G47.33 Obstructive sleep apnea (adult) (pediatric); I73.9 Peripheral vascular disease, unspecified; E03.9 Hypothyroidism, unspecified; E66.01 Morbid (severe) obesity due to excess calories; Z68.29 Body mass index [BMI] 29.0-29.9, adult; N40.0 Benign prostatic hyperplasia without lower urinary tract symptoms; K21.9 Gastro-esophageal reflux disease without esophagitis
CPT/HCPCS: 36415; 71045-TC-FY; 74019-TC-FY; 80048; 80053; 81003; 82550; 82803; 82962; 83735; 83880; 84443; 84484; 85025; 85610; 85730; 87086; 93005; 93010; 97116-GP; 97162-GP; 99285-25; C9803; J0131; U0003; U0005

== ENCOUNTER 2021-01-14 18:53 | Emergency (ER) | payer OTHER ==
[2021-01-14 19:00] VITALS: PULSE 74; TEMP 98.2; BMI 30.7
[2021-01-14] MEDS ORDERED: ACETAMINOPHEN 500 MG TABLET (FP) PO ONE (21:37)
[2021-01-14] MEDS ORDERED: ACETAMINOPHEN 325 MG TABLET (FP) ONE (21:45)
[2021-01-14 22:14] LABS: EOS % 5.3 % (0-4.5); HEMATOCRIT 32.7 % (35.4-49); HEMOGLOBIN 11.6 GM/dL (11.7-16.9); LYMPH % 25.4 % (8-40); MCH 32.7 pg (25.7-33.7); MCHC 35.4 g/dl (32.0-35.9); MEAN CELL VOLUME 92.3 fl (80-96); MEAN PLT VOLUME 7.7 fl (7.5-11.1); MONO % 11.5 % (3.8-10.2); NEUT % 56.8 % (42.8-82.8); PLATELET COUNT 150 10^3/uL (134-434); RBC 3.54 M/mm3 (4.00-5.60); RDW 13.7 % (11.9-15.9)
[2021-01-14 22:36] LABS: CALCIUM 8.4 mg/dL (8.5-10.1)
[2021-01-14 22:37] LABS: ALBUMIN 3.1 g/dl (3.4-5.0); BLOOD UREA NITROGEN 26.3 mg/dL (7-18)
[2021-01-14 22:40] LABS: CREATININE 0.9 mg/dL (0.55-1.3)
[2021-01-14 22:41] LABS: BILIRUBIN,TOTAL 0.3 mg/dL (0.2-1); TOT PROT 6.3 g/dl (6.4-8.2)
[2021-01-14 23:49] VITALS: BP 122/72
== END 2021-01-15 00:16 | disposition home or self-care (01) ==
LOC: JER 18:53
DX: L03.115 Cellulitis of right lower limb (principal); E11.9 Type 2 diabetes mellitus without complications; R21 Rash and other nonspecific skin eruption; Z79.4 Long term (current) use of insulin
CPT/HCPCS: 36415; 80053; 85025; 87040; 93971-TC; 99284-25

== ENCOUNTER 2021-07-19 17:37 | Inpatient (IN) | payer OTHER ==
[2021-07-19 18:29] LABS: EOS % 2.7 % (0-4.5); HEMATOCRIT 35.1 % (35.4-49); LYMPH % 20.7 % (8-40); MCH 30.9 pg (25.7-33.7); MCHC 34.2 g/dl (32.0-35.9); MEAN CELL VOLUME 90.5 fl (80-96); MEAN PLT VOLUME 7.8 fl (7.5-11.1); MONO % 9.9 % (3.8-10.2); NEUT % 65.7 % (42.8-82.8); PLATELET COUNT 143 10^3/uL (134-434); RBC 3.88 M/mm3 (4.00-5.60); RDW 13.4 % (11.9-15.9); WHITE BLOOD COUNT 6.7 K/mm3 (4.0-10.0)
[2021-07-19 18:37] LABS: INR 0.91 (0.83-1.09); PROTHROMBIN TIME (PATIENT) 10.5 SEC (9.7-13.0)
[2021-07-19 18:51] LABS: BLOOD UREA NITROGEN 19.1 mg/dL (7-18); CALCIUM 9.1 mg/dL (8.5-10.1)
[2021-07-19 18:52] LABS: ALBUMIN 2.7 g/dl (3.4-5.0); MAGNESIUM 2.1 mg/dL (1.8-2.4)
[2021-07-19 18:54] LABS: PHOSPHOROUS 3.1 mg/dL (2.5-4.9)
[2021-07-19 18:55] LABS: CREATININE 0.9 mg/dL (0.55-1.3)
[2021-07-19 18:56] LABS: BILIRUBIN,TOTAL 0.2 mg/dL (0.2-1); TOT PROT 6.3 g/dl (6.4-8.2)
[2021-07-19 19:00] LABS: N-TERMINAL BNP 303.2 pg/ml (5-125)
[2021-07-19] MEDS ORDERED: FUROSEMIDE 40 MG/4 ML INJECTABLE VIAL IVPUSH ONE (19:37)
[2021-07-19] MEDS ORDERED: FUROSEMIDE 40 MG/4 ML INJECTABLE VIAL ONE (20:08)
[2021-07-19] MEDS ORDERED: CLINDAMYCIN 600MG PREMIX IVPB 600 MG/50 ML BAG IVPB ONE ×2 (20:27→20:32)
[2021-07-19] MEDS ORDERED: POLYETHYLENE GLYCOL (HEALTHYLAX) 3350 17 GM PACKET PO PRN (23:37)
[2021-07-19] MEDS ORDERED: ACETAMINOPHEN 325 MG TABLET (FP) ONE (23:55)
[2021-07-19] MEDS: ACETAMINOPHEN 325 MG TABLET (FP) PO PRN (23:59)
[2021-07-19] MEDS ORDERED: KETOROLAC TROMETHAMINE 30 MG/1 ML VIAL IVPUSH ONE (23:59)
[2021-07-20 02:43] LABS: EPI CELLS 2 /uL (0-25.1); HYALINE CASTS 0 /uL (0-3.1); URINE APPEARANCE CLEAR; URINE BACTERIA 0 /uL (0-1359); URINE BILIRUBIN NEGATIVE (NEGATIVE); URINE COLOR YELLOW; URINE GLUCOSE (UA) 2+ (NEGATIVE); URINE KETONE NEGATIVE (NEGATIVE); URINE LEUK ESTERASE NEGATIVE (NEGATIVE); URINE NITRITE NEGATIVE (NEGATIVE); URINE PROTEIN 3+ (NEGATIVE); URINE RBC 9 /uL (0-23.9); URINE UROBILINOGEN 0.2 mg/dL (0.2-1.0); URINE WBC 1 /uL (0-25.8)
[2021-07-20] MEDS ORDERED: oxyCODONE HCL 5 MG TABLET ONE (04:49)
[2021-07-20] MEDS: oxyCODONE HCL 5 MG TABLET PO PRN ×2 (04:54→13:12)
[2021-07-20 09:19] LABS: BASO % 0.7 % (0-2.0); EOS % 3.3 % (0-4.5); HEMATOCRIT 32.8 % (35.4-49); HEMOGLOBIN 11.4 GM/dL (11.7-16.9); LYMPH % 21.1 % (8-40); MCH 31.6 pg (25.7-33.7); MCHC 34.8 g/dl (32.0-35.9); MEAN CELL VOLUME 90.9 fl (80-96); MEAN PLT VOLUME 8.1 fl (7.5-11.1); MONO % 9.3 % (3.8-10.2); NEUT % 65.6 % (42.8-82.8); PLATELET COUNT 140 10^3/uL (134-434); RBC 3.61 M/mm3 (4.00-5.60); RDW 13.1 % (11.9-15.9); WHITE BLOOD COUNT 6.8 K/mm3 (4.0-10.0)
[2021-07-20] MEDS: INSULIN SLIDING SCALE (NOVOLOG) 1 VIAL SQ SCH ×4 (09:26→22:39)
[2021-07-20] MEDS ORDERED: ALBUTEROL SO4 HFA INHALER IH PRN (09:29)
[2021-07-20 09:55] LABS: BLOOD UREA NITROGEN 17.6 mg/dL (7-18)
[2021-07-20 09:57] LABS: CREATININE 0.8 mg/dL (0.55-1.3)
[2021-07-20] MEDS: CLINDAMYCIN 600MG PREMIX IVPB 600 MG/50 ML BAG IVPB SCH ×2 (10:39→17:23)
[2021-07-20] MEDS: LEVOTHYROXINE NA 25 MCG TABLET (FP) PO SCH (10:45)
[2021-07-20] MEDS: PANTOPRAZOLE 40 MG TABLET PO SCH (10:45)
[2021-07-20] MEDS: RIVAROXABAN 20 MG TABLET PO SCH (10:46)
[2021-07-20] MEDS: FUROSEMIDE 40 MG TABLET (FP) PO SCH (10:46)
[2021-07-20] MEDS: RANOLAZINE E.R. 500 MG TABLET (FP) PO SCH ×2 (10:50→22:05)
[2021-07-20] MEDS ORDERED: ALBUTEROL SO4 0.083% IH SOL 2.5 MG/3 ML VIAL.NEB. NEB PRN (11:58)
[2021-07-20] MEDS: PREGABALIN 50 MG CAPSULE PO SCH ×2 (13:10→22:05)
[2021-07-20] MEDS: SOTALOL HCL 80 MG TABLET (FP) PO SCH ×2 (13:11→22:05)
[2021-07-20] MEDS: TIOTROPIUM BROMIDE 2.5 MCG (SPIRIVA) RESPIMAT INHALER IH SCH (13:11)
[2021-07-20] MEDS: BUDESONIDE/FORMETEROL FUMARATE 80/4.5 mcg INHALER IH SCH ×2 (13:11→22:03)
[2021-07-20] MEDS: PRAMIPEXOLE DIHYDROCHLORIDE 0.25 MG TABLET PO SCH ×2 (13:13→22:05)
[2021-07-20] MEDS ORDERED: CEFAZOLIN 2 GM in DEXTROSE 5%-WATER - 50 ML IVPB SCH (19:15)
[2021-07-20] MEDS: CEFAZOLIN 2 GM in DEXTROSE 5%-WATER - 100 ML IVPB SCH (21:30)
[2021-07-20] MEDS: ATORVASTATIN CA 80 MG TABLET (FP) PO SCH (22:05)
[2021-07-21] MEDS: oxyCODONE HCL 5 MG TABLET PO PRN ×3 (00:43→15:12)
[2021-07-21] MEDS: CEFAZOLIN 2 GM in DEXTROSE 5%-WATER - 100 ML IVPB SCH ×3 (02:04→17:33)
[2021-07-21] MEDS: PRAMIPEXOLE DIHYDROCHLORIDE 0.25 MG TABLET PO SCH ×3 (05:38→21:53)
[2021-07-21] MEDS: PREGABALIN 50 MG CAPSULE PO SCH ×3 (05:38→21:52)
[2021-07-21] MEDS: SOTALOL HCL 80 MG TABLET (FP) PO SCH ×3 (05:39→21:52)
[2021-07-21] MEDS: INSULIN (LEVEMIR) 100 UNITS/ML UNITS SQ SCH (06:04)
[2021-07-21] MEDS: LEVOTHYROXINE NA 25 MCG TABLET (FP) PO SCH (06:04)
[2021-07-21] MEDS: INSULIN SLIDING SCALE (NOVOLOG) 1 VIAL SQ SCH ×4 (06:04→21:54)
[2021-07-21] MEDS: RIVAROXABAN 20 MG TABLET PO SCH (09:15)
[2021-07-21] MEDS: RANOLAZINE E.R. 500 MG TABLET (FP) PO SCH ×2 (09:16→21:52)
[2021-07-21] MEDS: PANTOPRAZOLE 40 MG TABLET PO SCH (09:16)
[2021-07-21] MEDS: FUROSEMIDE 40 MG TABLET (FP) PO SCH (09:16)
[2021-07-21] MEDS: TIOTROPIUM BROMIDE 2.5 MCG (SPIRIVA) RESPIMAT INHALER IH SCH (09:17)
[2021-07-21] MEDS: BUDESONIDE/FORMETEROL FUMARATE 80/4.5 mcg INHALER IH SCH ×2 (09:17→21:56)
[2021-07-21] MEDS: AMMONIUM LACTATE 12% LOTION 225 GM BOTTLE TP SCH ×3 (17:28→21:53)
[2021-07-21] MEDS ORDERED: INSULIN (NOVOLOG) ASPART 100 UNITS/ML 10ML VIAL ONE (21:08)
[2021-07-21 21:33] VITALS: BMI 39.5
[2021-07-21] MEDS: ATORVASTATIN CA 80 MG TABLET (FP) PO SCH (21:53)
[2021-07-21] MEDS: NYSTATIN 100,000 UNIT/GM TOPICAL CREAM 15 GM TUBE TP SCH (21:54)
[2021-07-22] MEDS: oxyCODONE HCL 5 MG TABLET PO PRN ×2 (01:08→10:05)
[2021-07-22] MEDS: ACETAMINOPHEN 325 MG TABLET (FP) PO PRN ×2 (01:10→10:05)
[2021-07-22] MEDS: CEFAZOLIN 2 GM in DEXTROSE 5%-WATER - 100 ML IVPB SCH ×3 (01:11→17:09)
[2021-07-22] MEDS: PRAMIPEXOLE DIHYDROCHLORIDE 0.25 MG TABLET PO SCH ×3 (05:44→21:45)
[2021-07-22] MEDS: SOTALOL HCL 80 MG TABLET (FP) PO SCH ×3 (05:44→21:46)
[2021-07-22] MEDS: PREGABALIN 50 MG CAPSULE PO SCH ×3 (05:44→21:45)
[2021-07-22] MEDS: INSULIN (LEVEMIR) 100 UNITS/ML UNITS SQ SCH (06:05)
[2021-07-22] MEDS: INSULIN SLIDING SCALE (NOVOLOG) 1 VIAL SQ SCH ×4 (06:06→21:58)
[2021-07-22] MEDS: LEVOTHYROXINE NA 25 MCG TABLET (FP) PO SCH (06:08)
[2021-07-22 07:57] LABS: HEMATOCRIT 31.5 % (35.4-49); HEMOGLOBIN 10.8 GM/dL (11.7-16.9); MCH 31.4 pg (25.7-33.7); MCHC 34.3 g/dl (32.0-35.9); MEAN CELL VOLUME 91.6 fl (80-96); PLATELET COUNT 134 10^3/uL (134-434); RBC 3.44 M/mm3 (4.00-5.60); RDW 13.5 % (11.9-15.9); WHITE BLOOD COUNT 5.8 K/mm3 (4.0-10.0)
[2021-07-22 08:18] LABS: CALCIUM 8.3 mg/dL (8.5-10.1)
[2021-07-22 08:19] LABS: ALBUMIN 2.2 g/dl (3.4-5.0); BLOOD UREA NITROGEN 21.5 mg/dL (7-18); MAGNESIUM 2.3 mg/dL (1.8-2.4)
[2021-07-22 08:21] LABS: CREATININE 1.1 mg/dL (0.55-1.3)
[2021-07-22 08:23] LABS: BILIRUBIN,TOTAL 0.6 mg/dL (0.2-1); TOT PROT 5.2 g/dl (6.4-8.2)
[2021-07-22] MEDS: RANOLAZINE E.R. 500 MG TABLET (FP) PO SCH ×2 (10:01→21:45)
[2021-07-22] MEDS: PANTOPRAZOLE 40 MG TABLET PO SCH (10:01)
[2021-07-22] MEDS: RIVAROXABAN 20 MG TABLET PO SCH (10:01)
[2021-07-22] MEDS: FUROSEMIDE 40 MG TABLET (FP) PO SCH (10:02)
[2021-07-22] MEDS: TIOTROPIUM BROMIDE 2.5 MCG (SPIRIVA) RESPIMAT INHALER IH SCH (10:02)
[2021-07-22] MEDS: NYSTATIN 100,000 UNIT/GM TOPICAL CREAM 15 GM TUBE TP SCH ×2 (10:02→21:58)
[2021-07-22] MEDS: BUDESONIDE/FORMETEROL FUMARATE 80/4.5 mcg INHALER IH SCH ×2 (10:02→21:46)
[2021-07-22] MEDS: AMMONIUM LACTATE 12% LOTION 225 GM BOTTLE TP SCH ×2 (10:02→21:58)
[2021-07-22] MEDS: CYCLOBENZAPRINE HCL 5 MG TABLET PO PRN ×2 (10:05→17:14)
[2021-07-22] MEDS: ALBUTEROL SO4 0.083% IH SOL 2.5 MG/3 ML VIAL.NEB. NEB SCH ×3 (12:15→21:57)
[2021-07-22] MEDS: PATIENT'S OWN MEDICATION (NON-FORMULARY) (Tadalafil [Tadalafil] 20 MG Tablet) PO SCH ×2 (14:21→14:22)
[2021-07-22] MEDS: ATORVASTATIN CA 80 MG TABLET (FP) PO SCH (21:45)
[2021-07-23] MEDS: CEFAZOLIN 2 GM in DEXTROSE 5%-WATER - 100 ML IVPB SCH ×3 (02:27→18:17)
[2021-07-23] MEDS: oxyCODONE HCL 5 MG TABLET PO PRN ×2 (02:33→08:25)
[2021-07-23] MEDS: PREGABALIN 50 MG CAPSULE PO SCH ×3 (06:05→21:36)
[2021-07-23] MEDS: PRAMIPEXOLE DIHYDROCHLORIDE 0.25 MG TABLET PO SCH ×3 (06:05→21:36)
[2021-07-23] MEDS: LEVOTHYROXINE NA 25 MCG TABLET (FP) PO SCH (06:05)
[2021-07-23] MEDS: SOTALOL HCL 80 MG TABLET (FP) PO SCH ×3 (06:05→21:35)
[2021-07-23] MEDS: INSULIN SLIDING SCALE (NOVOLOG) 1 VIAL SQ SCH ×4 (06:11→21:37)
[2021-07-23] MEDS: INSULIN (LEVEMIR) 100 UNITS/ML UNITS SQ SCH (06:11)
[2021-07-23] MEDS: CYCLOBENZAPRINE HCL 5 MG TABLET PO PRN ×2 (08:24→21:36)
[2021-07-23] MEDS: ACETAMINOPHEN 325 MG TABLET (FP) PO PRN (08:25)
[2021-07-23] MEDS: RIVAROXABAN 20 MG TABLET PO SCH (09:37)
[2021-07-23] MEDS: FUROSEMIDE 40 MG TABLET (FP) PO SCH (09:37)
[2021-07-23] MEDS: RANOLAZINE E.R. 500 MG TABLET (FP) PO SCH ×2 (09:37→21:36)
[2021-07-23] MEDS: NYSTATIN 100,000 UNIT/GM TOPICAL CREAM 15 GM TUBE TP SCH ×2 (09:38→21:34)
[2021-07-23] MEDS: BUDESONIDE/FORMETEROL FUMARATE 80/4.5 mcg INHALER IH SCH ×2 (09:38→21:36)
[2021-07-23] MEDS: PANTOPRAZOLE 40 MG TABLET PO SCH (09:38)
[2021-07-23] MEDS: AMMONIUM LACTATE 12% LOTION 225 GM BOTTLE TP SCH ×2 (09:38→21:34)
[2021-07-23] MEDS: TIOTROPIUM BROMIDE 2.5 MCG (SPIRIVA) RESPIMAT INHALER IH SCH (09:38)
[2021-07-23] MEDS: ALBUTEROL SO4 0.083% IH SOL 2.5 MG/3 ML VIAL.NEB. NEB SCH ×4 (10:17→21:04)
[2021-07-23] MEDS ORDERED: LEVOTHYROXINE NA 50 MCG TABLET (FP) PO SCH (21:31)
[2021-07-23] MEDS ORDERED: INSULIN (LEVEMIR) 100 UNITS/ML UNITS SQ SCH ×2 (21:32→22:00)
[2021-07-23] MEDS: ATORVASTATIN CA 80 MG TABLET (FP) PO SCH (21:35)
[2021-07-24] MEDS: CEFAZOLIN 2 GM in DEXTROSE 5%-WATER - 100 ML IVPB SCH ×3 (01:27→18:18)
[2021-07-24] MEDS: PRAMIPEXOLE DIHYDROCHLORIDE 0.25 MG TABLET PO SCH ×2 (06:15→15:40)
[2021-07-24] MEDS: PREGABALIN 50 MG CAPSULE PO SCH ×2 (06:15→15:41)
[2021-07-24] MEDS: SOTALOL HCL 80 MG TABLET (FP) PO SCH ×2 (06:15→15:41)
[2021-07-24] MEDS: INSULIN SLIDING SCALE (NOVOLOG) 1 VIAL SQ SCH ×3 (06:16→17:01)
[2021-07-24] MEDS: ACETAMINOPHEN 325 MG TABLET (FP) PO PRN (06:26)
[2021-07-24] MEDS: oxyCODONE HCL 5 MG TABLET PO PRN (06:26)
[2021-07-24 08:10] LABS: SARS-CoV-2 NAA Not Detected (Not Detected)
[2021-07-24] MEDS: ALBUTEROL SO4 0.083% IH SOL 2.5 MG/3 ML VIAL.NEB. NEB SCH ×3 (08:39→18:00)
[2021-07-24] MEDS: FUROSEMIDE 40 MG TABLET (FP) PO SCH (09:24)
[2021-07-24] MEDS: AMMONIUM LACTATE 12% LOTION 225 GM BOTTLE TP SCH (09:24)
[2021-07-24] MEDS: PANTOPRAZOLE 40 MG TABLET PO SCH (09:25)
[2021-07-24] MEDS: BUDESONIDE/FORMETEROL FUMARATE 80/4.5 mcg INHALER IH SCH (09:26)
[2021-07-24] MEDS: NYSTATIN 100,000 UNIT/GM TOPICAL CREAM 15 GM TUBE TP SCH (09:26)
[2021-07-24] MEDS: RANOLAZINE E.R. 500 MG TABLET (FP) PO SCH (09:26)
[2021-07-24] MEDS: TIOTROPIUM BROMIDE 2.5 MCG (SPIRIVA) RESPIMAT INHALER IH SCH (09:27)
[2021-07-24 09:47] LABS: CALCIUM 9.2 mg/dL (8.5-10.1)
[2021-07-24 09:48] LABS: BLOOD UREA NITROGEN 18.4 mg/dL (7-18)
[2021-07-24] MEDS ORDERED: LISINOPRIL 5 MG TABLET PO SCH (11:30)
[2021-07-24] MEDS ORDERED: FUROSEMIDE 40 MG TABLET (FP) PO SCH (14:00)
[2021-07-24 14:11] VITALS: BP 150/88; PULSE 61; TEMP 98.1
[2021-07-24] MEDS ORDERED: RIVAROXABAN 20 MG TABLET PO SCH (18:00)
== END 2021-07-24 18:23 | disposition home or self-care (01) | DRG 191 ==
LOC: JER 17:37 → JERBED 22:50 → J7W 07-20 08:47
PROVIDERS: ADMIT Hospitalist; ATTEND Family Medicine
DX: J44.1 Chronic obstructive pulmonary disease with (acute) exacerbation (principal); L03.115 Cellulitis of right lower limb; I13.0 Hypertensive heart and chronic kidney disease with heart failure and stage 1 through stage 4 chronic kidney disease, or unspecified chronic kidney disease; A52.16 Charcot's arthropathy (tabetic); I50.32 Chronic diastolic (congestive) heart failure; I25.10 Atherosclerotic heart disease of native coronary artery without angina pectoris; E11.40 Type 2 diabetes mellitus with diabetic neuropathy, unspecified; I48.0 Paroxysmal atrial fibrillation; G47.33 Obstructive sleep apnea (adult) (pediatric); G20 Parkinson's disease; K21.9 Gastro-esophageal reflux disease without esophagitis; Z68.39 Body mass index [BMI] 39.0-39.9, adult; E66.01 Morbid (severe) obesity due to excess calories; E03.9 Hypothyroidism, unspecified; D64.9 Anemia, unspecified; E11.22 Type 2 diabetes mellitus with diabetic chronic kidney disease; N18.9 Chronic kidney disease, unspecified; B35.1 Tinea unguium
CPT/HCPCS: 36415; 71045-TC-FY; 71275-TC; 76775-TC; 76856-TC; 76870-TC; 80048; 80053; 80061; 81003; 82550; 82553; 82570; 82607; 82962; 83036; 83735; 83880; 84100; 84156; 84443; 84484; 85025; 85027; 85610; 85730; 87040; 93005; 93010; 93306-TC; 94640; 94660; 97116-GP; 97162-GP; 99285-25; C9803; Q9967; U0003; U0005

== ENCOUNTER 2021-07-24 20:06 | Inpatient (IN) | payer OTHER ==
[2021-07-24 20:29] VITALS: BMI 38.6
[2021-07-25] MEDS ORDERED: POLYETHYLENE GLYCOL (HEALTHYLAX) 3350 17 GM PACKET PO PRN (02:09)
[2021-07-25] MEDS ORDERED: ACETAMINOPHEN 1000 MG/100 ML BAG IVPB ONE (02:16)
[2021-07-25] MEDS ORDERED: ALBUTEROL SO4 HFA INHALER IH PRN (03:06)
[2021-07-25] MEDS ORDERED: CEPHALEXIN MONOHYDRATE 250 MG CAPSULE (FP) PO SCH (03:08)
[2021-07-25] MEDS ORDERED: ACETAMINOPHEN INJECTION 100 ML IVPB ONE (03:21)
[2021-07-25] MEDS ORDERED: CEPHALEXIN MONOHYDRATE 250 MG CAPSULE (FP) ONE (05:54)
[2021-07-25] MEDS ORDERED: CARBIDOPA/LEVODOPA 25/100 TABLET (FP) ONE (05:55)
[2021-07-25] MEDS: CEPHALEXIN MONOHYDRATE 250 MG CAPSULE (FP) PO SCH ×3 (05:58→22:54)
[2021-07-25] MEDS ORDERED: PREGABALIN 25 MG CAPSULE ONE (06:54)
[2021-07-25] MEDS: PREGABALIN 25 MG CAPSULE PO SCH ×3 (06:57→21:56)
[2021-07-25] MEDS ORDERED: sitaGLIPtin PHOSPHATE 50 MG TABLET ONE (07:08)
[2021-07-25] MEDS ORDERED: TAMSULOSIN HCL 0.4 MG CAP ONE (07:08)
[2021-07-25] MEDS: PRAMIPEXOLE DIHYDROCHLORIDE 0.25 MG TABLET PO SCH ×3 (07:28→22:54)
[2021-07-25] MEDS: SOTALOL HCL 80 MG TABLET (FP) PO SCH ×3 (07:28→22:54)
[2021-07-25] MEDS: TAMSULOSIN HCL 0.4 MG CAP PO SCH (07:29)
[2021-07-25] MEDS: sitaGLIPtin PHOSPHATE 50 MG TABLET PO SCH (07:29)
[2021-07-25] MEDS ORDERED: PANTOPRAZOLE 40 MG TABLET ONE (07:48)
[2021-07-25] MEDS ORDERED: amLODIPine BESYLATE 5 MG TABLET (FP) ONE (07:48)
[2021-07-25] MEDS ORDERED: FUROSEMIDE 40 MG TABLET (FP) ONE (07:48)
[2021-07-25] MEDS ORDERED: ACETAMINOPHEN 325 MG TABLET (FP) ONE (07:49)
[2021-07-25] MEDS: LEVOTHYROXINE NA 25 MCG TABLET (FP) PO SCH (08:12)
[2021-07-25] MEDS: INSULIN (LEVEMIR) 100 UNITS/ML UNITS SQ SCH ×2 (08:39→21:54)
[2021-07-25] MEDS: INSULIN SLIDING SCALE (NOVOLOG) 1 VIAL SQ SCH ×4 (08:39→22:59)
[2021-07-25] MEDS: ACETAMINOPHEN 325 MG TABLET (FP) PO PRN (08:40)
[2021-07-25] MEDS: AMMONIUM LACTATE 12% LOTION 225 GM BOTTLE TP SCH ×2 (09:26→21:59)
[2021-07-25] MEDS: amLODIPine BESYLATE 5 MG TABLET (FP) PO SCH (09:27)
[2021-07-25] MEDS: NYSTATIN 100,000 UNIT/GM TOPICAL CREAM 15 GM TUBE TP SCH ×2 (09:27→21:59)
[2021-07-25] MEDS: PANTOPRAZOLE 40 MG TABLET PO SCH (09:27)
[2021-07-25] MEDS: BUDESONIDE/FORMETEROL FUMARATE 80/4.5 mcg INHALER IH SCH ×2 (09:28→22:55)
[2021-07-25] MEDS: RANOLAZINE E.R. 500 MG TABLET (FP) PO SCH ×2 (09:28→21:55)
[2021-07-25] MEDS: TIOTROPIUM BROMIDE 2.5 MCG (SPIRIVA) RESPIMAT INHALER IH SCH (09:28)
[2021-07-25] MEDS ORDERED: FUROSEMIDE 40 MG TABLET (FP) PO SCH (10:00)
[2021-07-25] MEDS: CYCLOBENZAPRINE HCL 5 MG TABLET PO PRN (10:38)
[2021-07-25] MEDS: FUROSEMIDE 40 MG/4 ML INJECTABLE VIAL IVPUSH SCH (12:56)
[2021-07-25 13:23] LABS: HEMOGLOBIN 12.1 GM/dL (11.7-16.9); MEAN CELL VOLUME 89.7 fl (80-96); RBC 3.79 M/mm3 (4.00-5.60); WHITE BLOOD COUNT 6.2 K/mm3 (4.0-10.0)
[2021-07-25 13:24] LABS: BASO % 0.6 % (0-2.0); EOS % 3.6 % (0-4.5); LYMPH % 16.4 % (8-40); MCHC 35.6 g/dl (32.0-35.9); MEAN PLT VOLUME 7.7 fl (7.5-11.1); MONO % 8.8 % (3.8-10.2); NEUT % 70.6 % (42.8-82.8); PLATELET COUNT 150 10^3/uL (134-434); RDW 13.2 % (11.9-15.9)
[2021-07-25 13:54] LABS: CALCIUM 9.2 mg/dL (8.5-10.1)
[2021-07-25 13:55] LABS: BLOOD UREA NITROGEN 20.7 mg/dL (7-18)
[2021-07-25 13:59] LABS: TOT PROT 6.4 g/dl (6.4-8.2)
[2021-07-25 14:00] LABS: BILIRUBIN,TOTAL 0.3 mg/dL (0.2-1)
[2021-07-25 14:18] LABS: ALBUMIN 2.8 g/dl (3.4-5.0)
[2021-07-25] MEDS: RIVAROXABAN 20 MG TABLET PO SCH (17:27)
[2021-07-25] MEDS: ALBUTEROL SO4 0.083% IH SOL 2.5 MG/3 ML VIAL.NEB. NEB SCH (20:20)
[2021-07-25] MEDS: EZETIMIBE 10 MG TABLET (FP) PO SCH (21:55)
[2021-07-25] MEDS: ATORVASTATIN CA 80 MG TABLET (FP) PO SCH (21:55)
[2021-07-26] MEDS: ACETAMINOPHEN 325 MG TABLET (FP) PO PRN (04:24)
[2021-07-26] MEDS: PRAMIPEXOLE DIHYDROCHLORIDE 0.25 MG TABLET PO SCH ×3 (06:02→21:46)
[2021-07-26] MEDS: SOTALOL HCL 80 MG TABLET (FP) PO SCH ×3 (06:02→21:47)
[2021-07-26] MEDS: CEPHALEXIN MONOHYDRATE 250 MG CAPSULE (FP) PO SCH ×3 (06:02→23:00)
[2021-07-26] MEDS: INSULIN (LEVEMIR) 100 UNITS/ML UNITS SQ SCH ×2 (06:04→21:45)
[2021-07-26] MEDS: PREGABALIN 25 MG CAPSULE PO SCH ×3 (06:05→21:45)
[2021-07-26] MEDS: LEVOTHYROXINE NA 25 MCG TABLET (FP) PO SCH (06:05)
[2021-07-26] MEDS: sitaGLIPtin PHOSPHATE 50 MG TABLET PO SCH (06:06)
[2021-07-26] MEDS: INSULIN SLIDING SCALE (NOVOLOG) 1 VIAL SQ SCH ×4 (06:07→21:44)
[2021-07-26] MEDS: ALBUTEROL SO4 0.083% IH SOL 2.5 MG/3 ML VIAL.NEB. NEB SCH ×4 (08:24→20:50)
[2021-07-26 09:49] LABS: BASO % 0.8 % (0-2.0); EOS % 4.1 % (0-4.5); HEMATOCRIT 34.5 % (35.4-49); HEMOGLOBIN 11.9 GM/dL (11.7-16.9); LYMPH % 21.6 % (8-40); MCH 31.7 pg (25.7-33.7); MCHC 34.6 g/dl (32.0-35.9); MEAN CELL VOLUME 91.5 fl (80-96); MEAN PLT VOLUME 8.2 fl (7.5-11.1); MONO % 9.4 % (3.8-10.2); NEUT % 64.1 % (42.8-82.8); PLATELET COUNT 149 10^3/uL (134-434); RBC 3.77 M/mm3 (4.00-5.60); RDW 13.3 % (11.9-15.9); WHITE BLOOD COUNT 5.9 K/mm3 (4.0-10.0)
[2021-07-26 10:16] LABS: ALBUMIN 2.7 g/dl (3.4-5.0); BLOOD UREA NITROGEN 19.9 mg/dL (7-18); CALCIUM 9.4 mg/dL (8.5-10.1)
[2021-07-26] MEDS: AMMONIUM LACTATE 12% LOTION 225 GM BOTTLE TP SCH ×2 (10:17→21:47)
[2021-07-26] MEDS: PANTOPRAZOLE 40 MG TABLET PO SCH (10:17)
[2021-07-26] MEDS: amLODIPine BESYLATE 5 MG TABLET (FP) PO SCH (10:17)
[2021-07-26] MEDS: RANOLAZINE E.R. 500 MG TABLET (FP) PO SCH ×2 (10:17→21:43)
[2021-07-26] MEDS: TAMSULOSIN HCL 0.4 MG CAP PO SCH (10:17)
[2021-07-26] MEDS: FUROSEMIDE 40 MG/4 ML INJECTABLE VIAL IVPUSH SCH (10:17)
[2021-07-26] MEDS: BUDESONIDE/FORMETEROL FUMARATE 80/4.5 mcg INHALER IH SCH ×2 (10:18→21:57)
[2021-07-26] MEDS: TIOTROPIUM BROMIDE 2.5 MCG (SPIRIVA) RESPIMAT INHALER IH SCH (10:18)
[2021-07-26] MEDS: NYSTATIN 100,000 UNIT/GM TOPICAL CREAM 15 GM TUBE TP SCH ×2 (10:18→21:48)
[2021-07-26 10:21] LABS: BILIRUBIN,TOTAL 0.6 mg/dL (0.2-1)
[2021-07-26] MEDS: RIVAROXABAN 20 MG TABLET PO SCH (17:13)
[2021-07-26] MEDS ORDERED: oxyCODONE HCL 5 MG TABLET PO ONE (18:07)
[2021-07-26] MEDS: EZETIMIBE 10 MG TABLET (FP) PO SCH (21:43)
[2021-07-26] MEDS: ATORVASTATIN CA 80 MG TABLET (FP) PO SCH (21:43)
[2021-07-27] MEDS: sitaGLIPtin PHOSPHATE 50 MG TABLET PO SCH (06:28)
[2021-07-27] MEDS: PREGABALIN 25 MG CAPSULE PO SCH ×3 (06:28→21:14)
[2021-07-27] MEDS: LEVOTHYROXINE NA 25 MCG TABLET (FP) PO SCH (06:28)
[2021-07-27] MEDS: CEPHALEXIN MONOHYDRATE 250 MG CAPSULE (FP) PO SCH ×3 (06:30→21:14)
[2021-07-27] MEDS: SOTALOL HCL 80 MG TABLET (FP) PO SCH ×3 (06:31→21:14)
[2021-07-27] MEDS: PRAMIPEXOLE DIHYDROCHLORIDE 0.25 MG TABLET PO SCH ×3 (06:31→21:15)
[2021-07-27] MEDS: INSULIN (LEVEMIR) 100 UNITS/ML UNITS SQ SCH ×2 (06:32→21:17)
[2021-07-27] MEDS: INSULIN SLIDING SCALE (NOVOLOG) 1 VIAL SQ SCH ×4 (06:35→21:18)
[2021-07-27] MEDS: ALBUTEROL SO4 0.083% IH SOL 2.5 MG/3 ML VIAL.NEB. NEB SCH ×4 (08:35→20:30)
[2021-07-27] MEDS: TAMSULOSIN HCL 0.4 MG CAP PO SCH (09:18)
[2021-07-27] MEDS: LOSARTAN POTASSIUM 25 MG TABLET PO SCH (09:18)
[2021-07-27] MEDS: TIOTROPIUM BROMIDE 2.5 MCG (SPIRIVA) RESPIMAT INHALER IH SCH (09:19)
[2021-07-27] MEDS: RANOLAZINE E.R. 500 MG TABLET (FP) PO SCH ×2 (09:19→21:15)
[2021-07-27] MEDS: NYSTATIN 100,000 UNIT/GM TOPICAL CREAM 15 GM TUBE TP SCH ×2 (09:19→21:21)
[2021-07-27] MEDS: AMMONIUM LACTATE 12% LOTION 225 GM BOTTLE TP SCH ×2 (09:19→21:20)
[2021-07-27] MEDS: FUROSEMIDE 40 MG/4 ML INJECTABLE VIAL IVPUSH SCH (09:22)
[2021-07-27] MEDS: PANTOPRAZOLE 40 MG TABLET PO SCH (09:22)
[2021-07-27] MEDS: BUDESONIDE/FORMETEROL FUMARATE 80/4.5 mcg INHALER IH SCH ×2 (09:27→21:20)
[2021-07-27] MEDS ORDERED: INSULIN (NOVOLOG) ASPART 100 UNITS/ML 10ML VIAL ONE ×3 (11:09→21:09)
[2021-07-27] MEDS: RIVAROXABAN 20 MG TABLET PO SCH (17:29)
[2021-07-27] MEDS: ATORVASTATIN CA 80 MG TABLET (FP) PO SCH (21:14)
[2021-07-27] MEDS: EZETIMIBE 10 MG TABLET (FP) PO SCH (21:14)
[2021-07-27] MEDS: ACETAMINOPHEN 325 MG TABLET (FP) PO PRN (23:33)
[2021-07-28] MEDS: LEVOTHYROXINE NA 25 MCG TABLET (FP) PO SCH (06:46)
[2021-07-28] MEDS: PREGABALIN 25 MG CAPSULE PO SCH ×3 (06:46→21:48)
[2021-07-28] MEDS: sitaGLIPtin PHOSPHATE 50 MG TABLET PO SCH (06:46)
[2021-07-28] MEDS: PRAMIPEXOLE DIHYDROCHLORIDE 0.25 MG TABLET PO SCH ×3 (06:47→21:49)
[2021-07-28] MEDS: SOTALOL HCL 80 MG TABLET (FP) PO SCH ×3 (06:47→21:49)
[2021-07-28] MEDS: CEPHALEXIN MONOHYDRATE 250 MG CAPSULE (FP) PO SCH ×3 (06:47→21:49)
[2021-07-28] MEDS: INSULIN SLIDING SCALE (NOVOLOG) 1 VIAL SQ SCH ×4 (06:51→21:50)
[2021-07-28] MEDS: INSULIN (LEVEMIR) 100 UNITS/ML UNITS SQ SCH ×2 (06:52→21:49)
[2021-07-28] MEDS: ACETAMINOPHEN 325 MG TABLET (FP) PO PRN (06:55)
[2021-07-28] MEDS: ALBUTEROL SO4 0.083% IH SOL 2.5 MG/3 ML VIAL.NEB. NEB SCH ×4 (07:52→20:50)
[2021-07-28] MEDS: TAMSULOSIN HCL 0.4 MG CAP PO SCH (08:53)
[2021-07-28] MEDS: BUDESONIDE/FORMETEROL FUMARATE 80/4.5 mcg INHALER IH SCH ×2 (09:12→21:59)
[2021-07-28] MEDS: TIOTROPIUM BROMIDE 2.5 MCG (SPIRIVA) RESPIMAT INHALER IH SCH (09:12)
[2021-07-28] MEDS: RANOLAZINE E.R. 500 MG TABLET (FP) PO SCH ×2 (09:13→21:48)
[2021-07-28] MEDS: PANTOPRAZOLE 40 MG TABLET PO SCH (09:13)
[2021-07-28] MEDS: LOSARTAN POTASSIUM 25 MG TABLET PO SCH (09:13)
[2021-07-28] MEDS: FUROSEMIDE 40 MG/4 ML INJECTABLE VIAL IVPUSH SCH (09:14)
[2021-07-28] MEDS: AMMONIUM LACTATE 12% LOTION 225 GM BOTTLE TP SCH ×2 (09:14→22:11)
[2021-07-28] MEDS: NYSTATIN 100,000 UNIT/GM TOPICAL CREAM 15 GM TUBE TP SCH ×2 (09:14→21:49)
[2021-07-28] MEDS ORDERED: INSULIN (NOVOLOG) ASPART 100 UNITS/ML 10ML VIAL ONE ×2 (11:35→16:32)
[2021-07-28] MEDS: RIVAROXABAN 20 MG TABLET PO SCH (17:51)
[2021-07-28] MEDS: EZETIMIBE 10 MG TABLET (FP) PO SCH (21:49)
[2021-07-28] MEDS: ATORVASTATIN CA 80 MG TABLET (FP) PO SCH (21:49)
[2021-07-29] MEDS: sitaGLIPtin PHOSPHATE 50 MG TABLET PO SCH (06:26)
[2021-07-29] MEDS: PRAMIPEXOLE DIHYDROCHLORIDE 0.25 MG TABLET PO SCH ×2 (06:26→13:08)
[2021-07-29] MEDS: PREGABALIN 25 MG CAPSULE PO SCH ×2 (06:26→13:07)
[2021-07-29] MEDS: CEPHALEXIN MONOHYDRATE 250 MG CAPSULE (FP) PO SCH ×2 (06:27→13:07)
[2021-07-29] MEDS: LEVOTHYROXINE NA 25 MCG TABLET (FP) PO SCH (06:27)
[2021-07-29] MEDS: SOTALOL HCL 80 MG TABLET (FP) PO SCH ×2 (06:27→13:07)
[2021-07-29] MEDS: INSULIN SLIDING SCALE (NOVOLOG) 1 VIAL SQ SCH ×2 (06:27→11:09)
[2021-07-29] MEDS: INSULIN (LEVEMIR) 100 UNITS/ML UNITS SQ SCH (06:27)
[2021-07-29] MEDS: ALBUTEROL SO4 0.083% IH SOL 2.5 MG/3 ML VIAL.NEB. NEB SCH ×3 (07:50→15:09)
[2021-07-29] MEDS: BUDESONIDE/FORMETEROL FUMARATE 80/4.5 mcg INHALER IH SCH (09:20)
[2021-07-29] MEDS: RANOLAZINE E.R. 500 MG TABLET (FP) PO SCH (09:20)
[2021-07-29] MEDS: PANTOPRAZOLE 40 MG TABLET PO SCH (09:20)
[2021-07-29] MEDS: TIOTROPIUM BROMIDE 2.5 MCG (SPIRIVA) RESPIMAT INHALER IH SCH (09:20)
[2021-07-29] MEDS: TAMSULOSIN HCL 0.4 MG CAP PO SCH (09:20)
[2021-07-29] MEDS: LOSARTAN POTASSIUM 25 MG TABLET PO SCH (09:20)
[2021-07-29] MEDS: CYCLOBENZAPRINE HCL 5 MG TABLET PO PRN (09:21)
[2021-07-29] MEDS: NYSTATIN 100,000 UNIT/GM TOPICAL CREAM 15 GM TUBE TP SCH (09:21)
[2021-07-29] MEDS: AMMONIUM LACTATE 12% LOTION 225 GM BOTTLE TP SCH (09:21)
[2021-07-29] MEDS: ACETAMINOPHEN 325 MG TABLET (FP) PO PRN (09:22)
[2021-07-29] MEDS ORDERED: FUROSEMIDE 40 MG TABLET (FP) PO SCH (10:00)
[2021-07-29 13:00] LABS: BLOOD UREA NITROGEN 21.9 mg/dL (7-18)
[2021-07-29 13:01] LABS: ALBUMIN 2.8 g/dl (3.4-5.0); CALCIUM 8.5 mg/dL (8.5-10.1)
[2021-07-29 13:04] LABS: CREATININE 1.2 mg/dL (0.55-1.3)
[2021-07-29 13:05] LABS: BILIRUBIN,TOTAL 0.4 mg/dL (0.2-1); TOT PROT 6.5 g/dl (6.4-8.2)
[2021-07-29 13:38] VITALS: BP 144/98; PULSE 61; TEMP 98.8
[2021-07-29 15:07] LABS: SARS-CoV-2 NAA Not Detected (Not Detected)
== END 2021-07-29 15:53 | DRG 291 ==
LOC: JER 20:06 → JERBED 23:02 → J6S 07-25 12:13 → OBSVTOIN 07-29 10:55
PROVIDERS: ADMIT Internal Medicine; ATTEND Family Medicine
DX: I13.0 Hypertensive heart and chronic kidney disease with heart failure and stage 1 through stage 4 chronic kidney disease, or unspecified chronic kidney disease (principal); I50.33 Acute on chronic diastolic (congestive) heart failure; E11.65 Type 2 diabetes mellitus with hyperglycemia; Z79.01 Long term (current) use of anticoagulants; I25.10 Atherosclerotic heart disease of native coronary artery without angina pectoris; K21.9 Gastro-esophageal reflux disease without esophagitis; E03.9 Hypothyroidism, unspecified; E66.01 Morbid (severe) obesity due to excess calories; G47.33 Obstructive sleep apnea (adult) (pediatric); N40.0 Benign prostatic hyperplasia without lower urinary tract symptoms; F32.A Depression, unspecified; F41.9 Anxiety disorder, unspecified; J44.9 Chronic obstructive pulmonary disease, unspecified; Z68.37 Body mass index [BMI] 37.0-37.9, adult; I48.0 Paroxysmal atrial fibrillation; E11.22 Type 2 diabetes mellitus with diabetic chronic kidney disease; N18.9 Chronic kidney disease, unspecified; G20 Parkinson's disease; E11.40 Type 2 diabetes mellitus with diabetic neuropathy, unspecified
CPT/HCPCS: 36415; 80053; 82550; 82553; 82962; 83880; 84443; 84484; 85025; 93005; 93010; 94640; 97116-GP; 97162-GP; 99285-25; C9803; G0378; U0003; U0005

== ENCOUNTER 2021-08-21 16:07 | Emergency (ER) | payer OTHER ==
[2021-08-21] MEDS ORDERED: morphine CARPU-JECT 4 MG/1 ML DISP.SYRIN IVPUSH ONE (16:47)
[2021-08-21 17:05] VITALS: TEMP 97.4
[2021-08-21] MEDS ORDERED: ONDANSETRON 4 MG/2 ML VIAL IVPUSH ONE (17:13)
[2021-08-21] MEDS ORDERED: morphine SULFATE 4 MG/ML VIAL ONE (17:37)
[2021-08-21] MEDS ORDERED: ONDANSETRON 4 MG/2 ML VIAL ONE (17:38)
[2021-08-21 18:02] LABS: BASO % 0.6 % (0-2.0); EOS % 3.6 % (0-4.5); HEMATOCRIT 35.9 % (35.4-49); HEMOGLOBIN 12.4 GM/dL (11.7-16.9); LYMPH % 18.3 % (8-40); MCH 30.5 pg (25.7-33.7); MCHC 34.4 g/dl (32.0-35.9); MEAN CELL VOLUME 88.4 fl (80-96); MEAN PLT VOLUME 8.6 fl (7.5-11.1); MONO % 7.2 % (3.8-10.2); NEUT % 70.3 % (42.8-82.8); PLATELET COUNT 127 10^3/uL (134-434); RBC 4.06 M/mm3 (4.00-5.60); WHITE BLOOD COUNT 7.8 K/mm3 (4.0-10.0)
[2021-08-21 18:08] LABS: INR 1.15 (0.83-1.09); PROTHROMBIN TIME (PATIENT) 13.3 SEC (9.7-13.0)
[2021-08-21 18:11] LABS: ACTIVATED PTT 38.2 SECONDS (25.2-36.5)
[2021-08-21 18:20] LABS: BLOOD UREA NITROGEN 34.3 mg/dL (7-18); CALCIUM 8.9 mg/dL (8.5-10.1)
[2021-08-21 18:23] LABS: CREATININE 1.2 mg/dL (0.55-1.3)
[2021-08-21 18:25] LABS: BILIRUBIN,TOTAL 0.2 mg/dL (0.2-1); TOT PROT 6.4 g/dl (6.4-8.2)
[2021-08-21] MEDS ORDERED: LIDOCAINE HCL 2% (50ML VIAL) SQ ONE (18:32)
[2021-08-21] MEDS ORDERED: LIDOCAINE HCL 2% (20ML MULTI-DOSE VIAL) ONE (18:32)
[2021-08-21] MEDS ORDERED: VANCOMYCIN 1 GM in D5W (PRE-DOCKED) 1,000 MG/250 ML IVPB ONE (19:06)
[2021-08-21] MEDS ORDERED: PIPERACILLIN/TAZOB 3.375 GM 3.375 GM in DEXTROSE 5%-WATER - 50 ML IVPB ONE (19:06)
[2021-08-21] MEDS ORDERED: VANCOMYCIN 1 GRAM (PRE-DOCKED) 1,000 MG/250 ML BAG IVPB ONE (19:19)
[2021-08-21] MEDS ORDERED: PIPERACILLIN/TAZOB 3.375 GM 3.375 GM/50 ML BAG IVPB ONE (19:20)
[2021-08-21 23:57] VITALS: BP 150/92; PULSE 86
== END 2021-08-21 23:57 | disposition short-term general hospital (02) ==
LOC: JER 16:07
PROC: 3E033GC Introduction of Other Therapeutic Substance into Peripheral Vein, Percutaneous Approach (ICD-10-PCS; principal; 2021-08-21)
PROC: 0SSFXZZ Reposition Right Ankle Joint, External Approach (ICD-10-PCS; 2021-08-21)
DX: S82.831A Other fracture of upper and lower end of right fibula, initial encounter for closed fracture (principal); S82.201A Unspecified fracture of shaft of right tibia, initial encounter for closed fracture; L03.115 Cellulitis of right lower limb; W19.XXXA Unspecified fall, initial encounter
CPT/HCPCS: 36415; 70450-TC; 71045-TC-FY; 72125-TC; 72170-TC-FY; 73590-TC-RT-FY; 73610-TC-LT-FY; 73610-TC-RT-FY; 73630-TC-LT; 73630-TC-RT-FY; 80053; 85025; 85610; 85730; 86850; 86900; 86901; 93005; 93010; 99285-25; C9803-CS; U0003; U0005

== ENCOUNTER 2021-12-04 03:48 | Emergency (ER) | payer OTHER ==
[2021-12-04 04:25] VITALS: BMI 47.5
[2021-12-04] MEDS ORDERED: ACETAMINOPHEN 1000 MG/100 ML BAG IVPB ONE (04:48)
[2021-12-04] MEDS ORDERED: ACETAMINOPHEN INJECTION 100 ML IVPB ONE (05:21)
[2021-12-04 05:39] LABS: BASO % 0.7 % (0-2.0); EOS % 4.3 % (0-4.5); HEMATOCRIT 32.9 % (35.4-49); HEMOGLOBIN 11.6 GM/dL (11.7-16.9); LYMPH % 24.2 % (8-40); MCH 31.1 pg (25.7-33.7); MCHC 35.3 g/dl (32.0-35.9); MEAN CELL VOLUME 88.2 fl (80-96); MEAN PLT VOLUME 8.4 fl (7.5-11.1); MONO % 8.9 % (3.8-10.2); NEUT % 61.9 % (42.8-82.8); PLATELET COUNT 167 10^3/uL (134-434); RBC 3.73 M/mm3 (4.00-5.60); RDW 13.7 % (11.9-15.9); WHITE BLOOD COUNT 6.9 K/mm3 (4.0-10.0)
[2021-12-04 05:43] LABS: INR 0.95 (0.83-1.09); PROTHROMBIN TIME (PATIENT) 10.9 SEC (9.7-13.0)
[2021-12-04 05:45] LABS: ACTIVATED PTT 35.2 SECONDS (25.2-36.5)
[2021-12-04] MEDS ORDERED: SODIUM CHLORIDE FOR INHALATION 3 ML VIAL.NEB IH ONE (05:49)
[2021-12-04 06:01] LABS: BLOOD UREA NITROGEN 23.4 mg/dL (7-18); CALCIUM 8.6 mg/dL (8.5-10.1); MAGNESIUM 2.1 mg/dL (1.8-2.4)
[2021-12-04 06:05] LABS: EPI CELLS 0 /uL (0-25.1); HYALINE CASTS 0 /uL (0-3.1); PH,URINE 5.5 (5.0-8.0); URINE APPEARANCE CLEAR; URINE BACTERIA 0 /uL (0-1359); URINE BILIRUBIN NEGATIVE (NEGATIVE); URINE COLOR YELLOW; URINE GLUCOSE (UA) 3+ (NEGATIVE); URINE KETONE NEGATIVE (NEGATIVE); URINE LEUK ESTERASE NEGATIVE (NEGATIVE); URINE NITRITE NEGATIVE (NEGATIVE); URINE PROTEIN 3+ (NEGATIVE); URINE RBC 9 /uL (0-23.9); URINE UROBILINOGEN 0.2 mg/dL (0.2-1.0); URINE WBC 1 /uL (0-25.8)
[2021-12-04 06:06] LABS: BILIRUBIN,TOTAL 0.2 mg/dL (0.2-1); TOT PROT 6.2 g/dl (6.4-8.2)
[2021-12-04] MEDS ORDERED: IBUPROFEN 400 MG TABLET (FP) PO ONE ×2 (08:12→08:20)
[2021-12-04 10:35] VITALS: TEMP 97.5
[2021-12-04 12:39] VITALS: BP 159/84; PULSE 82
== END 2021-12-04 12:39 | disposition home or self-care (01) ==
LOC: JER 03:48
PROC: 3E033GC Introduction of Other Therapeutic Substance into Peripheral Vein, Percutaneous Approach (ICD-10-PCS; principal; 2021-12-04)
PROC: 3E0F7GC Introduction of Other Therapeutic Substance into Respiratory Tract, Via Natural or Artificial Opening (ICD-10-PCS; 2021-12-04)
DX: J32.9 Chronic sinusitis, unspecified (principal); E11.9 Type 2 diabetes mellitus without complications
CPT/HCPCS: 36415; 70450-TC; 71045-TC-FY; 80053; 81003; 83735; 84484; 85025; 85610; 85730; 87086; 93005; 93010; 99285-25

== ENCOUNTER 2021-12-04 18:43 | Inpatient (IN) | payer OTHER ==
[2021-12-04 18:56] VITALS: BMI 31.1
[2021-12-04] MEDS ORDERED: ACETAMINOPHEN 500 MG TABLET (FP) PO ONE (19:27)
[2021-12-04] MEDS ORDERED: IOHEXOL 180 MG/1 ML ML IJ ONE (19:36)
[2021-12-04] MEDS ORDERED: METOCLOPRAMIDE HCL INJECTION 10 MG/2 ML VIAL IVPB ONE (19:43)
[2021-12-04] MEDS ORDERED: FUROSEMIDE 40 MG/4 ML INJECTABLE VIAL IVPUSH ONE (19:54)
[2021-12-04] MEDS ORDERED: ACETAMINOPHEN 500 MG TABLET (FP) ONE (20:21)
[2021-12-04] MEDS ORDERED: METOCLOPRAMIDE HCL INJECTION 10 MG/2 ML VIAL ONE (20:23)
[2021-12-04] MEDS ORDERED: FUROSEMIDE 40 MG/4 ML INJECTABLE VIAL ONE (20:23)
[2021-12-04 21:18] LABS: BASO % 0.8 % (0-2.0); EOS % 2.8 % (0-4.5); HEMATOCRIT 34.4 % (35.4-49); HEMOGLOBIN 11.9 GM/dL (11.7-16.9); LYMPH % 17.6 % (8-40); MCH 30.1 pg (25.7-33.7); MCHC 34.5 g/dl (32.0-35.9); MEAN CELL VOLUME 87.3 fl (80-96); MEAN PLT VOLUME 8.7 fl (7.5-11.1); MONO % 9.1 % (3.8-10.2); NEUT % 69.7 % (42.8-82.8); PLATELET COUNT 164 10^3/uL (134-434); RBC 3.94 M/mm3 (4.00-5.60); RDW 13.8 % (11.9-15.9); WHITE BLOOD COUNT 7.7 K/mm3 (4.0-10.0)
[2021-12-04 21:33] LABS: CALCIUM 9.1 mg/dL (8.5-10.1)
[2021-12-04 21:34] LABS: ALBUMIN 3.2 g/dl (3.4-5.0); BLOOD UREA NITROGEN 22.6 mg/dL (7-18); MAGNESIUM 2.3 mg/dL (1.8-2.4)
[2021-12-04 21:37] LABS: CREATININE 0.8 mg/dL (0.55-1.3)
[2021-12-04 21:38] LABS: BILIRUBIN,TOTAL 0.3 mg/dL (0.2-1)
[2021-12-04 21:39] LABS: TOT PROT 6.6 g/dl (6.4-8.2)
[2021-12-04 22:01] LABS: EPI CELLS 3 /uL (0-25.1); HYALINE CASTS 0 /uL (0-3.1); PH,URINE 5.5 (5.0-8.0); URINE APPEARANCE CLEAR; URINE BACTERIA 15 /uL (0-1359); URINE BILIRUBIN NEGATIVE (NEGATIVE); URINE COLOR YELLOW; URINE GLUCOSE (UA) 3+ (NEGATIVE); URINE KETONE NEGATIVE (NEGATIVE); URINE LEUK ESTERASE NEGATIVE (NEGATIVE); URINE NITRITE NEGATIVE (NEGATIVE); URINE PROTEIN 3+ (NEGATIVE); URINE RBC 13 /uL (0-23.9); URINE UROBILINOGEN 0.2 mg/dL (0.2-1.0); URINE WBC 3 /uL (0-25.8)
[2021-12-04] MEDS ORDERED: morphine CARPU-JECT 4 MG/1 ML DISP.SYRIN IVPUSH ONE (23:31)
[2021-12-04] MEDS ORDERED: morphine SULFATE 4 MG/ML VIAL ONE (23:59)
[2021-12-05] MEDS ORDERED: ACETAMINOPHEN/CAFFEINE/BUTALBITAL 1 TAB PO ONE (05:40)
[2021-12-05] MEDS ORDERED: SIMETHICONE 40 MG/0.6 ML BOTTLE PO PRN (05:41)
[2021-12-05] MEDS ORDERED: ALBUTEROL SO4 2.5/IPRATROPIUM 0.5 INH SOL 3 ML VIAL.NEB. NEB PRN (05:41)
[2021-12-05] MEDS ORDERED: POLYETHYLENE GLYCOL (HEALTHYLAX) 3350 17 GM PACKET PO PRN (05:41)
[2021-12-05] MEDS ORDERED: ACETAMINOPHEN 1000 MG/100 ML BAG IVPB ONE (05:49)
[2021-12-05] MEDS ORDERED: METOCLOPRAMIDE HCL INJECTION 10 MG/2 ML VIAL IVPB ONE (05:49)
[2021-12-05] MEDS: TAMSULOSIN HCL 0.4 MG CAP PO SCH (09:00)
[2021-12-05] MEDS: LEVOTHYROXINE NA 25 MCG TABLET (FP) PO SCH (09:00)
[2021-12-05] MEDS ORDERED: PREGABALIN 50 MG CAPSULE ONE (09:23)
[2021-12-05] MEDS ORDERED: PANTOPRAZOLE 40 MG TABLET PO ONE (09:23)
[2021-12-05] MEDS ORDERED: amLODIPine BESYLATE 5 MG TABLET (FP) ONE (09:23)
[2021-12-05] MEDS ORDERED: TAMSULOSIN HCL 0.4 MG CAP ONE (09:24)
[2021-12-05] MEDS ORDERED: APIXABAN 5 MG TABLET ONE ×2 (09:24→21:24)
[2021-12-05] MEDS ORDERED: SENNOSIDES 8.6MG TABLET (FP) PO ONE ×2 (09:24→21:25)
[2021-12-05] MEDS ORDERED: LOSARTAN POTASSIUM 50 MG TABLET ONE (09:24)
[2021-12-05] MEDS ORDERED: LEVOTHYROXINE NA 25 MCG TABLET (FP) ONE (09:24)
[2021-12-05] MEDS ORDERED: buPROPion HCL 100 MG TABLET ONE (09:24)
[2021-12-05] MEDS ORDERED: METOCLOPRAMIDE HCL INJECTION 10 MG/2 ML VIAL ONE (09:25)
[2021-12-05] MEDS ORDERED: ACETAMINOPHEN INJECTION 100 ML IVPB ONE (09:25)
[2021-12-05] MEDS ORDERED: RANOLAZINE E.R. 500 MG TABLET (FP) ONE ×2 (09:25→21:25)
[2021-12-05] MEDS: SIMETHICONE 80 MG TAB.CHEW (FP) PO SCH ×4 (10:02→21:38)
[2021-12-05] MEDS: amLODIPine BESYLATE 5 MG TABLET (FP) PO SCH (10:02)
[2021-12-05] MEDS: SOTALOL HCL 80 MG TABLET (FP) PO SCH (10:02)
[2021-12-05] MEDS: LOSARTAN POTASSIUM 50 MG TABLET PO SCH (10:02)
[2021-12-05] MEDS: PREGABALIN 50 MG CAPSULE PO SCH (10:02)
[2021-12-05] MEDS: APIXABAN 5 MG TABLET PO SCH ×2 (10:02→21:38)
[2021-12-05] MEDS: PANTOPRAZOLE 40 MG TABLET PO SCH (10:03)
[2021-12-05] MEDS: RANOLAZINE E.R. 1,000 MG TABLET (FP) PO SCH ×2 (10:03→21:38)
[2021-12-05] MEDS: TIOTROPIUM BROMIDE 2.5 MCG (SPIRIVA) RESPIMAT INHALER IH SCH (10:03)
[2021-12-05] MEDS: SENNOSIDES 8.6MG TABLET (FP) PO SCH ×2 (10:03→21:38)
[2021-12-05] MEDS: LIPASE/PROTEASE/AMYLASE 36,000 UNIT CAPSULE PO SCH ×2 (13:02→16:43)
[2021-12-05] MEDS: metroNIDAZOLE 250 MG TABLET PO SCH ×2 (13:16→21:38)
[2021-12-05] MEDS ORDERED: metroNIDAZOLE 250 MG TABLET ONE ×2 (13:17→21:25)
[2021-12-05] MEDS ORDERED: SIMETHICONE 80 MG TAB.CHEW (FP) ONE ×3 (13:17→21:25)
[2021-12-05] MEDS ORDERED: ATORVASTATIN CA 80 MG TABLET (FP) ONE (21:25)
[2021-12-05] MEDS ORDERED: ACETAMINOPHEN 325 MG TABLET (FP) ONE (21:25)
[2021-12-05 21:26] LABS: BASO % 0.7 % (0-2.0); EOS % 2.8 % (0-4.5); HEMATOCRIT 33.3 % (35.4-49); HEMOGLOBIN 11.6 GM/dL (11.7-16.9); LYMPH % 22.4 % (8-40); MCH 30.4 pg (25.7-33.7); MCHC 34.8 g/dl (32.0-35.9); MEAN CELL VOLUME 87.4 fl (80-96); MEAN PLT VOLUME 8.1 fl (7.5-11.1); MONO % 11.1 % (3.8-10.2); PLATELET COUNT 150 10^3/uL (134-434); RBC 3.81 M/mm3 (4.00-5.60); RDW 13.9 % (11.9-15.9); WHITE BLOOD COUNT 6.5 K/mm3 (4.0-10.0)
[2021-12-05] MEDS: ATORVASTATIN CA 80 MG TABLET (FP) PO SCH (21:38)
[2021-12-05] MEDS: ACETAMINOPHEN 325 MG TABLET (FP) PO PRN (21:39)
[2021-12-05 21:55] LABS: BLOOD UREA NITROGEN 19.7 mg/dL (7-18)
[2021-12-05 21:59] LABS: BILIRUBIN,TOTAL 0.5 mg/dL (0.2-1); TOT PROT 6.4 g/dl (6.4-8.2)
[2021-12-06] MEDS: metroNIDAZOLE 250 MG TABLET PO SCH ×3 (06:11→21:08)
[2021-12-06] MEDS: LEVOTHYROXINE NA 25 MCG TABLET (FP) PO SCH (06:11)
[2021-12-06] MEDS: LIPASE/PROTEASE/AMYLASE 36,000 UNIT CAPSULE PO SCH ×3 (07:39→17:37)
[2021-12-06] MEDS: TAMSULOSIN HCL 0.4 MG CAP PO SCH (07:39)
[2021-12-06 08:44] LABS: BASO % 0.7 % (0-2.0); EOS % 3.7 % (0-4.5); HEMATOCRIT 33.4 % (35.4-49); HEMOGLOBIN 11.4 GM/dL (11.7-16.9); LYMPH % 32.1 % (8-40); MCH 30.2 pg (25.7-33.7); MCHC 34.2 g/dl (32.0-35.9); MEAN CELL VOLUME 88.3 fl (80-96); MEAN PLT VOLUME 8.5 fl (7.5-11.1); MONO % 11.7 % (3.8-10.2); NEUT % 51.8 % (42.8-82.8); PLATELET COUNT 146 10^3/uL (134-434); RBC 3.78 M/mm3 (4.00-5.60); RDW 13.4 % (11.9-15.9); WHITE BLOOD COUNT 5.4 K/mm3 (4.0-10.0)
[2021-12-06 09:00] LABS: BLOOD UREA NITROGEN 18.3 mg/dL (7-18); CALCIUM 9.1 mg/dL (8.5-10.1)
[2021-12-06 09:01] LABS: ALBUMIN 2.9 g/dl (3.4-5.0)
[2021-12-06] MEDS ORDERED: RANOLAZINE E.R. 500 MG TABLET (FP) ONE ×2 (09:02→20:49)
[2021-12-06 09:03] LABS: CREATININE 0.9 mg/dL (0.55-1.3)
[2021-12-06 09:05] LABS: BILIRUBIN,TOTAL 0.5 mg/dL (0.2-1)
[2021-12-06] MEDS: SOTALOL HCL 80 MG TABLET (FP) PO SCH (09:13)
[2021-12-06] MEDS: RANOLAZINE E.R. 1,000 MG TABLET (FP) PO SCH ×2 (09:13→21:08)
[2021-12-06] MEDS: LOSARTAN POTASSIUM 50 MG TABLET PO SCH (09:13)
[2021-12-06] MEDS: FUROSEMIDE 40 MG/4 ML INJECTABLE VIAL IVPUSH SCH (09:13)
[2021-12-06] MEDS: amLODIPine BESYLATE 5 MG TABLET (FP) PO SCH (09:13)
[2021-12-06] MEDS: SENNOSIDES 8.6MG TABLET (FP) PO SCH (09:13)
[2021-12-06] MEDS: APIXABAN 5 MG TABLET PO SCH ×2 (09:13→21:08)
[2021-12-06] MEDS: PREGABALIN 50 MG CAPSULE PO SCH (09:13)
[2021-12-06] MEDS: PANTOPRAZOLE 40 MG TABLET PO SCH (09:13)
[2021-12-06] MEDS: SIMETHICONE 80 MG TAB.CHEW (FP) PO SCH ×4 (09:13→21:07)
[2021-12-06] MEDS: TIOTROPIUM BROMIDE 2.5 MCG (SPIRIVA) RESPIMAT INHALER IH SCH (10:49)
[2021-12-06] MEDS: ATORVASTATIN CA 80 MG TABLET (FP) PO SCH (21:08)
[2021-12-07] MEDS: ACETAMINOPHEN 325 MG TABLET (FP) PO PRN (04:55)
[2021-12-07] MEDS: metroNIDAZOLE 250 MG TABLET PO SCH ×3 (06:09→21:44)
[2021-12-07] MEDS: LEVOTHYROXINE NA 25 MCG TABLET (FP) PO SCH (06:09)
[2021-12-07] MEDS ORDERED: PEG 3350/NA SULF BICARB CL/KCL 4000 ML SOLN.RECON PO ONE (08:00)
[2021-12-07] MEDS ORDERED: RANOLAZINE E.R. 500 MG TABLET (FP) ONE ×2 (09:29→21:09)
[2021-12-07] MEDS: FUROSEMIDE 40 MG/4 ML INJECTABLE VIAL IVPUSH SCH (10:26)
[2021-12-07] MEDS: amLODIPine BESYLATE 5 MG TABLET (FP) PO SCH (10:27)
[2021-12-07] MEDS: TAMSULOSIN HCL 0.4 MG CAP PO SCH (10:27)
[2021-12-07] MEDS: PREGABALIN 50 MG CAPSULE PO SCH (10:27)
[2021-12-07] MEDS: LOSARTAN POTASSIUM 50 MG TABLET PO SCH (10:29)
[2021-12-07] MEDS: LIPASE/PROTEASE/AMYLASE 36,000 UNIT CAPSULE PO SCH ×3 (10:29→17:49)
[2021-12-07] MEDS: RANOLAZINE E.R. 1,000 MG TABLET (FP) PO SCH ×2 (10:30→21:46)
[2021-12-07] MEDS: PANTOPRAZOLE 40 MG TABLET PO SCH (10:30)
[2021-12-07] MEDS: SIMETHICONE 80 MG TAB.CHEW (FP) PO SCH ×4 (10:30→21:45)
[2021-12-07] MEDS: TIOTROPIUM BROMIDE 2.5 MCG (SPIRIVA) RESPIMAT INHALER IH SCH (10:30)
[2021-12-07] MEDS: SOTALOL HCL 80 MG TABLET (FP) PO SCH (10:31)
[2021-12-07] MEDS ORDERED: POLYETHYLENE GLYCOL 3350 255 GM BTL PO ONE (17:30)
[2021-12-07] MEDS: ATORVASTATIN CA 80 MG TABLET (FP) PO SCH (21:44)
[2021-12-07] MEDS: INSULIN SLIDING SCALE (NOVOLOG) 1 VIAL SQ SCH (21:45)
[2021-12-08] MEDS: LEVOTHYROXINE NA 25 MCG TABLET (FP) PO SCH (06:17)
[2021-12-08] MEDS: metroNIDAZOLE 250 MG TABLET PO SCH ×3 (06:17→21:37)
[2021-12-08] MEDS: INSULIN SLIDING SCALE (NOVOLOG) 1 VIAL SQ SCH ×4 (06:18→21:46)
[2021-12-08 07:50] LABS: HEMATOCRIT 33.3 % (35.4-49); HEMOGLOBIN 11.7 GM/dL (11.7-16.9); MCH 30.5 pg (25.7-33.7); MCHC 35.2 g/dl (32.0-35.9); MEAN CELL VOLUME 86.8 fl (80-96); MEAN PLT VOLUME 8.1 fl (7.5-11.1); PLATELET COUNT 152 10^3/uL (134-434); RBC 3.84 M/mm3 (4.00-5.60); RDW 13.4 % (11.9-15.9); WHITE BLOOD COUNT 5.7 K/mm3 (4.0-10.0)
[2021-12-08] MEDS ORDERED: POLYETHYLENE GLYCOL 3350 255 GM BTL PO ONE (08:00)
[2021-12-08] MEDS ORDERED: PEG 3350/NA SULF BICARB CL/KCL 4000 ML SOLN.RECON PO ONE (08:00)
[2021-12-08 08:16] LABS: BLOOD UREA NITROGEN 17.1 mg/dL (7-18); CALCIUM 9.1 mg/dL (8.5-10.1); MAGNESIUM 2.4 mg/dL (1.8-2.4)
[2021-12-08 08:20] LABS: CREATININE 0.9 mg/dL (0.55-1.3)
[2021-12-08] MEDS ORDERED: RANOLAZINE E.R. 500 MG TABLET (FP) ONE ×2 (09:22→20:07)
[2021-12-08] MEDS: RANOLAZINE E.R. 1,000 MG TABLET (FP) PO SCH ×2 (09:41→21:38)
[2021-12-08] MEDS: LIPASE/PROTEASE/AMYLASE 36,000 UNIT CAPSULE PO SCH ×3 (09:41→17:38)
[2021-12-08] MEDS: TIOTROPIUM BROMIDE 2.5 MCG (SPIRIVA) RESPIMAT INHALER IH SCH ×2 (09:43→11:42)
[2021-12-08] MEDS: amLODIPine BESYLATE 5 MG TABLET (FP) PO SCH (09:44)
[2021-12-08] MEDS: TAMSULOSIN HCL 0.4 MG CAP PO SCH (09:44)
[2021-12-08] MEDS: PANTOPRAZOLE 40 MG TABLET PO SCH (09:44)
[2021-12-08] MEDS: SIMETHICONE 80 MG TAB.CHEW (FP) PO SCH ×4 (09:44→21:38)
[2021-12-08] MEDS: PREGABALIN 50 MG CAPSULE PO SCH (09:44)
[2021-12-08] MEDS: SOTALOL HCL 80 MG TABLET (FP) PO SCH (09:44)
[2021-12-08] MEDS: FUROSEMIDE 40 MG/4 ML INJECTABLE VIAL IVPUSH SCH (09:45)
[2021-12-08] MEDS: LOSARTAN POTASSIUM 50 MG TABLET PO SCH (09:45)
[2021-12-08] MEDS ORDERED: ALBUTEROL SO4 0.083% IH SOL 2.5 MG/3 ML VIAL.NEB. NEB PRN (10:36)
[2021-12-08] MEDS: LORATADINE 10 MG TABLET PO SCH (11:42)
[2021-12-08] MEDS: FLUTICASONE PROP 0.05% 16 GM NASAL SPRAY NS SCH (11:42)
[2021-12-08] MEDS: ACETAMINOPHEN 325 MG TABLET (FP) PO PRN (15:45)
[2021-12-08] MEDS ORDERED: FAMOTIDINE 20 MG/50 ML IVPB 20 MG/50 ML MG IVPB ONE (17:00)
[2021-12-08] MEDS ORDERED: MAG HYDROX/AL HYDROX/SIMETH 30 ML UNIT-DOSE CUP PO ONE (17:00)
[2021-12-08] MEDS: ATORVASTATIN CA 80 MG TABLET (FP) PO SCH (21:37)
[2021-12-08] MEDS: CEFUROXIME AXETIL 500 MG TABLET PO SCH (22:46)
[2021-12-09] MEDS ORDERED: SODIUM PHOSPHATE/NA BIPHOS 133 ML ENEMA RC ONE (04:00)
[2021-12-09] MEDS: INSULIN SLIDING SCALE (NOVOLOG) 1 VIAL SQ SCH ×4 (06:14→22:59)
[2021-12-09] MEDS: LEVOTHYROXINE NA 25 MCG TABLET (FP) PO SCH (06:14)
[2021-12-09] MEDS: metroNIDAZOLE 250 MG TABLET PO SCH ×4 (06:14→22:43)
[2021-12-09] MEDS ORDERED: RANOLAZINE E.R. 500 MG TABLET (FP) ONE ×2 (09:48→22:01)
[2021-12-09] MEDS: LIPASE/PROTEASE/AMYLASE 36,000 UNIT CAPSULE PO SCH ×3 (09:56→17:34)
[2021-12-09] MEDS: INSULIN (LEVEMIR) 100 UNITS/ML UNITS SQ SCH (09:57)
[2021-12-09] MEDS ORDERED: BISACODYL 5 MG TABLET.DR (FP) PO ONE (11:45)
[2021-12-09] MEDS: TAMSULOSIN HCL 0.4 MG CAP PO SCH (11:47)
[2021-12-09] MEDS: FUROSEMIDE 20 MG TABLET (FP) PO SCH (11:48)
[2021-12-09] MEDS: SIMETHICONE 80 MG TAB.CHEW (FP) PO SCH ×5 (11:48→22:45)
[2021-12-09] MEDS: SOTALOL HCL 80 MG TABLET (FP) PO SCH (11:49)
[2021-12-09] MEDS: PANTOPRAZOLE 40 MG TABLET PO SCH (11:49)
[2021-12-09] MEDS: amLODIPine BESYLATE 5 MG TABLET (FP) PO SCH (11:49)
[2021-12-09] MEDS: PREGABALIN 50 MG CAPSULE PO SCH (11:49)
[2021-12-09] MEDS: LORATADINE 10 MG TABLET PO SCH (11:49)
[2021-12-09] MEDS: LOSARTAN POTASSIUM 50 MG TABLET PO SCH (11:50)
[2021-12-09] MEDS: CEFUROXIME AXETIL 500 MG TABLET PO SCH ×3 (11:51→22:45)
[2021-12-09] MEDS: RANOLAZINE E.R. 1,000 MG TABLET (FP) PO SCH ×3 (11:51→22:45)
[2021-12-09] MEDS: FLUTICASONE PROP 0.05% 16 GM NASAL SPRAY NS SCH (12:08)
[2021-12-09] MEDS: TIOTROPIUM BROMIDE 2.5 MCG (SPIRIVA) RESPIMAT INHALER IH SCH (12:08)
[2021-12-09 13:10] LABS: BLOOD UREA NITROGEN 14.5 mg/dL (7-18); CALCIUM 9.2 mg/dL (8.5-10.1)
[2021-12-09 13:11] LABS: MAGNESIUM 2.6 mg/dL (1.8-2.4)
[2021-12-09] MEDS: ATORVASTATIN CA 80 MG TABLET (FP) PO SCH ×2 (22:38→22:45)
[2021-12-09] MEDS: APIXABAN 5 MG TABLET PO SCH ×2 (22:38→22:45)
[2021-12-09] MEDS: HYDROCORTISONE ACETATE 25 MG/SUPP.RECT PR SCH ×2 (22:45)
[2021-12-10] MEDS: metroNIDAZOLE 250 MG TABLET PO SCH ×6 (00:15→23:26)
[2021-12-10] MEDS: CEFUROXIME AXETIL 500 MG TABLET PO SCH ×5 (00:16→23:26)
[2021-12-10] MEDS: ATORVASTATIN CA 80 MG TABLET (FP) PO SCH ×2 (00:16→21:29)
[2021-12-10] MEDS: RANOLAZINE E.R. 1,000 MG TABLET (FP) PO SCH ×4 (00:16→23:27)
[2021-12-10] MEDS: APIXABAN 5 MG TABLET PO SCH ×4 (00:17→23:26)
[2021-12-10] MEDS: SIMETHICONE 80 MG TAB.CHEW (FP) PO SCH ×5 (00:17→21:30)
[2021-12-10] MEDS: ACETAMINOPHEN 325 MG TABLET (FP) PO PRN ×2 (00:49→21:29)
[2021-12-10] MEDS: LEVOTHYROXINE NA 25 MCG TABLET (FP) PO SCH (06:03)
[2021-12-10] MEDS: INSULIN SLIDING SCALE (NOVOLOG) 1 VIAL SQ SCH ×5 (06:07→23:26)
[2021-12-10] MEDS: INSULIN (LEVEMIR) 100 UNITS/ML UNITS SQ SCH (06:07)
[2021-12-10] MEDS: LIPASE/PROTEASE/AMYLASE 36,000 UNIT CAPSULE PO SCH ×3 (09:00→17:55)
[2021-12-10] MEDS ORDERED: RANOLAZINE E.R. 500 MG TABLET (FP) ONE ×2 (09:18→21:01)
[2021-12-10] MEDS: LOSARTAN POTASSIUM 50 MG TABLET PO SCH (11:03)
[2021-12-10] MEDS: TAMSULOSIN HCL 0.4 MG CAP PO SCH (11:03)
[2021-12-10] MEDS: SOTALOL HCL 80 MG TABLET (FP) PO SCH (11:03)
[2021-12-10] MEDS: amLODIPine BESYLATE 5 MG TABLET (FP) PO SCH (11:04)
[2021-12-10] MEDS: LORATADINE 10 MG TABLET PO SCH (11:04)
[2021-12-10] MEDS: PREGABALIN 50 MG CAPSULE PO SCH (11:04)
[2021-12-10] MEDS: FUROSEMIDE 20 MG TABLET (FP) PO SCH (11:04)
[2021-12-10] MEDS: PANTOPRAZOLE 40 MG TABLET PO SCH (11:04)
[2021-12-10] MEDS: FLUTICASONE PROP 0.05% 16 GM NASAL SPRAY NS SCH (11:05)
[2021-12-10] MEDS: TIOTROPIUM BROMIDE 2.5 MCG (SPIRIVA) RESPIMAT INHALER IH SCH (11:06)
[2021-12-10] MEDS ORDERED: ACETAMINOPHEN 325 MG TABLET (FP) PO PRN (21:50)
[2021-12-10] MEDS ORDERED: ALBUTEROL SO4 0.083% IH SOL 2.5 MG/3 ML VIAL.NEB. NEB PRN (21:50)
[2021-12-10] MEDS ORDERED: ATORVASTATIN CA 80 MG TABLET (FP) PO SCH (22:00)
[2021-12-10] MEDS ORDERED: SIMETHICONE 80 MG TAB.CHEW (FP) PO PRN (22:00)
[2021-12-10] MEDS ORDERED: HYDROCORTISONE ACETATE 25 MG/SUPP.RECT PR SCH (22:00)
[2021-12-11] MEDS: metroNIDAZOLE 250 MG TABLET PO SCH ×2 (06:08→15:26)
[2021-12-11] MEDS: INSULIN SLIDING SCALE (NOVOLOG) 1 VIAL SQ SCH ×3 (06:17→17:47)
[2021-12-11] MEDS ORDERED: LEVOTHYROXINE NA 25 MCG TABLET (FP) PO SCH (07:00)
[2021-12-11] MEDS ORDERED: INSULIN (LEVEMIR) 100 UNITS/ML UNITS SQ SCH (07:00)
[2021-12-11] MEDS ORDERED: TAMSULOSIN HCL 0.4 MG CAP PO SCH (08:30)
[2021-12-11] MEDS: CEFUROXIME AXETIL 500 MG TABLET PO SCH (09:00)
[2021-12-11] MEDS: LIPASE/PROTEASE/AMYLASE 36,000 UNIT CAPSULE PO SCH ×3 (09:00→17:47)
[2021-12-11] MEDS ORDERED: SOTALOL HCL 80 MG TABLET (FP) PO SCH (10:00)
[2021-12-11] MEDS ORDERED: FLUTICASONE PROP 0.05% 16 GM NASAL SPRAY NS SCH (10:00)
[2021-12-11] MEDS ORDERED: PANTOPRAZOLE 40 MG TABLET PO SCH (10:00)
[2021-12-11] MEDS ORDERED: amLODIPine BESYLATE 5 MG TABLET (FP) PO SCH (10:00)
[2021-12-11] MEDS ORDERED: FUROSEMIDE 20 MG TABLET (FP) PO SCH (10:00)
[2021-12-11] MEDS ORDERED: LOSARTAN POTASSIUM 50 MG TABLET PO SCH (10:00)
[2021-12-11] MEDS ORDERED: PREGABALIN 50 MG CAPSULE PO SCH (10:00)
[2021-12-11] MEDS ORDERED: TIOTROPIUM BROMIDE 2.5 MCG (SPIRIVA) RESPIMAT INHALER IH SCH (10:00)
[2021-12-11] MEDS ORDERED: SOTALOL HCL 80 MG TABLET (FP) PO ONE (10:00)
[2021-12-11] MEDS ORDERED: LORATADINE 10 MG TABLET PO SCH (10:00)
[2021-12-11] MEDS ORDERED: RANOLAZINE E.R. 500 MG TABLET (FP) ONE (10:52)
[2021-12-11] MEDS: APIXABAN 5 MG TABLET PO SCH (10:55)
[2021-12-11] MEDS: RANOLAZINE E.R. 1,000 MG TABLET (FP) PO SCH (11:34)
[2021-12-11 20:00] VITALS: BP 156/64; PULSE 62; TEMP 98
== END 2021-12-11 20:01 | disposition home health service (06) | DRG 291 ==
LOC: JER 18:43 → JERBED 12-05 02:11 → J4W 12-05 22:27 → J5S 12-10 11:44
PROVIDERS: ADMIT Family Medicine; ATTEND Family Medicine
PROC: 0DBL8ZX Excision of Transverse Colon, Via Natural or Artificial Opening Endoscopic, Diagnostic (ICD-10-PCS; 2021-12-09)
PROC: 0DBM8ZX Excision of Descending Colon, Via Natural or Artificial Opening Endoscopic, Diagnostic (ICD-10-PCS; 2021-12-09)
PROC: 0DB58ZX Excision of Esophagus, Via Natural or Artificial Opening Endoscopic, Diagnostic (ICD-10-PCS; 2021-12-09)
PROC: 0DB68ZX Excision of Stomach, Via Natural or Artificial Opening Endoscopic, Diagnostic (ICD-10-PCS; 2021-12-09)
PROC: 0DBH8ZX Excision of Cecum, Via Natural or Artificial Opening Endoscopic, Diagnostic (ICD-10-PCS; principal; 2021-12-09 09:45)
DX: I13.0 Hypertensive heart and chronic kidney disease with heart failure and stage 1 through stage 4 chronic kidney disease, or unspecified chronic kidney disease (principal); I50.33 Acute on chronic diastolic (congestive) heart failure; N18.9 Chronic kidney disease, unspecified; E11.22 Type 2 diabetes mellitus with diabetic chronic kidney disease; J44.9 Chronic obstructive pulmonary disease, unspecified; G20 Parkinson's disease; K58.9 Irritable bowel syndrome, unspecified; K21.9 Gastro-esophageal reflux disease without esophagitis; G43.809 Other migraine, not intractable, without status migrainosus; E66.9 Obesity, unspecified; Z68.31 Body mass index [BMI] 31.0-31.9, adult; E11.51 Type 2 diabetes mellitus with diabetic peripheral angiopathy without gangrene; R55 Syncope and collapse; R10.31 Right lower quadrant pain; G47.33 Obstructive sleep apnea (adult) (pediatric); D64.9 Anemia, unspecified; R60.0 Localized edema; K86.81 Exocrine pancreatic insufficiency; K63.5 Polyp of colon; I48.91 Unspecified atrial fibrillation; R91.1 Solitary pulmonary nodule; I25.119 Atherosclerotic heart disease of native coronary artery with unspecified angina pectoris; K64.8 Other hemorrhoids
CPT/HCPCS: 36415; 70450-TC; 71045-TC-FY; 71250-TC; 74176-TC; 80048; 80053; 81003; 82962; 83605; 83735; 83880; 85025; 85027; 87086; 88305-TC; 93005; 93010; 94660; 97116-GP; 97162-GP; 99285-25; C9803-CS; U0003; U0005

== ENCOUNTER 2022-08-20 17:11 | Inpatient (IN) | payer OTHER ==
[2022-08-20 17:30] VITALS: BMI 33.2
[2022-08-20] MEDS ORDERED: VANCOMYCIN 1 GM in D5W (PRE-DOCKED) 1,000 MG/250 ML IVPB ONE (19:23)
[2022-08-20] MEDS ORDERED: VANCOMYCIN/WATER FOR INJ (PEG) 1,000 MG/200 ML BAG IVPB ONE (19:37)
[2022-08-20 20:17] LABS: BASO % 0.6 % (0-2.0); EOS % 3.6 % (0-4.5); HEMATOCRIT 40.1 % (35.4-49); HEMOGLOBIN 13.8 GM/dL (11.7-16.9); LYMPH % 30.7 % (8-40); MCH 31.5 pg (25.7-33.7); MCHC 34.5 g/dl (32.0-35.9); MEAN CELL VOLUME 91.4 fl (80-96); MEAN PLT VOLUME 8.2 fl (7.5-11.1); MONO % 9.9 % (3.8-10.2); NEUT % 55.2 % (42.8-82.8); PLATELET COUNT 153 10^3/uL (134-434); RBC 4.38 M/mm3 (4.00-5.60); RDW 13.2 % (11.9-15.9); WHITE BLOOD COUNT 7.8 K/mm3 (4.0-10.0)
[2022-08-20 20:25] LABS: INR 1.09 (0.83-1.09); PROTHROMBIN TIME (PATIENT) 12.6 SEC (9.7-13.0)
[2022-08-20 20:27] LABS: ACTIVATED PTT 36.2 SECONDS (25.2-36.5)
[2022-08-20 20:39] LABS: CHLORIDE 102 mmol/L (98-107); SODIUM 139 mmol/L (136-145)
[2022-08-20 20:43] LABS: ALBUMIN 3.6 g/dl (3.4-5.0); ANION GAP 7 MMOL/L (8-16); BLOOD UREA NITROGEN 43.6 mg/dL (7-18); CO2 30 mmol/L (21-32); GLUCOSE,RANDOM 176 mg/dL (74-106)
[2022-08-20 20:46] LABS: CREATININE 1.3 mg/dL (0.55-1.3); SGOT/AST 21 U/L (15-37); SGPT/ALT 40 U/L (13-61)
[2022-08-20 20:48] LABS: BILIRUBIN,TOTAL 0.3 mg/dL (0.2-1); TOT PROT 7.1 g/dl (6.4-8.2)
[2022-08-20 20:49] LABS: ALK PHOS 86 U/L (45-117)
[2022-08-20 20:51] LABS: N-TERMINAL BNP 44.2 pg/ml (5-125)
[2022-08-20 21:16] LABS: ERYTHROCYTE SEDIMENTATION RATE 29 mm/hr (0-20)
[2022-08-20] MEDS ORDERED: CEFTRIAXONE 2 GM-D5W BAG 2 GM/50 ML BAG IVPB ONE (21:31)
[2022-08-20] MEDS ORDERED: CEFTRIAXONE 2 GM/100 ML BAG IVPB ONE (22:36)
[2022-08-20] MEDS ORDERED: DOCUSATE SODIUM 100 MG CAPSULE (FP) PO PRN (23:25)
[2022-08-21] MEDS ORDERED: SIMETHICONE 40 MG/0.6 ML BOTTLE PO PRN (04:32)
[2022-08-21] MEDS ORDERED: ALBUTEROL SO4 2.5/IPRATROPIUM 0.5 INH SOL 3 ML VIAL.NEB. NEB PRN (04:32)
[2022-08-21] MEDS ORDERED: HYDROCORTISONE ACETATE 25 MG/SUPP.RECT RC PRN (04:32)
[2022-08-21] MEDS ORDERED: POLYETHYLENE GLYCOL (HEALTHYLAX) 3350 17 GM PACKET PO PRN (04:32)
[2022-08-21] MEDS: ACETAMINOPHEN 1000 MG/100 ML BAG IVPB PRN ×3 (05:40→20:14)
[2022-08-21] MEDS: INSULIN SLIDING SCALE (NOVOLOG) 1 VIAL SQ SCH ×4 (06:40→22:57)
[2022-08-21] MEDS ORDERED: VANCOMYCIN PREMIX 1.5 GM 1,500 MG/300 ML BAG IVPB SCH (09:00)
[2022-08-21] MEDS ORDERED: VANCOMYCIN HCL 1,500 MG in DEXTROSE 5%-WATER - 500 ML IVPB SCH (09:00)
[2022-08-21 09:28] LABS: BASO % 0.9 % (0-2.0); EOS % 3.5 % (0-4.5); HEMATOCRIT 36.2 % (35.4-49); HEMOGLOBIN 12.9 GM/dL (11.7-16.9); MCH 32.8 pg (25.7-33.7); MCHC 35.5 g/dl (32.0-35.9); MEAN CELL VOLUME 92.3 fl (80-96); MEAN PLT VOLUME 8.2 fl (7.5-11.1); MONO % 11.4 % (3.8-10.2); NEUT % 56.2 % (42.8-82.8); PLATELET COUNT 128 10^3/uL (134-434); RBC 3.93 M/mm3 (4.00-5.60); RDW 12.9 % (11.9-15.9); WHITE BLOOD COUNT 6.9 K/mm3 (4.0-10.0)
[2022-08-21 09:54] LABS: CALCIUM 9.2 mg/dL (8.5-10.1)
[2022-08-21 09:58] LABS: CREATININE 1.1 mg/dL (0.55-1.3); PHOSPHOROUS 4.1 mg/dL (2.5-4.9)
[2022-08-21 10:01] LABS: MAGNESIUM 2.4 mg/dL (1.8-2.4)
[2022-08-21] MEDS ORDERED: RANOLAZINE E.R. 500 MG TABLET (FP) ONE ×2 (10:02→21:47)
[2022-08-21] MEDS ORDERED: valACYclovir HCL 500 MG TABLET (FP) ONE (10:03)
[2022-08-21] MEDS: CARVEDILOL 12.5 MG TABLET (FP) PO SCH ×2 (10:06→22:56)
[2022-08-21] MEDS: SPIRONOLACTONE 25 MG TABLET PO SCH (10:06)
[2022-08-21] MEDS: APIXABAN 5 MG TABLET PO SCH ×2 (10:06→22:56)
[2022-08-21] MEDS: FUROSEMIDE 20 MG TABLET (FP) PO SCH (10:06)
[2022-08-21] MEDS: RANOLAZINE E.R. 1,000 MG TABLET (FP) PO SCH ×2 (10:06→22:57)
[2022-08-21] MEDS: amLODIPine BESYLATE 5 MG TABLET (FP) PO SCH (10:06)
[2022-08-21 10:16] LABS: BLOOD UREA NITROGEN 35.9 mg/dL (7-18)
[2022-08-21] MEDS: BUDESONIDE/FORMETEROL FUMARATE 80/4.5 mcg INHALER IH SCH ×2 (11:07→23:46)
[2022-08-21] MEDS: TIOTROPIUM BROMIDE 2.5 MCG (SPIRIVA) RESPIMAT INHALER IH SCH (11:08)
[2022-08-21] MEDS: CYANOCOBALAMIN 1,000 MCG TABLET (FP) PO SCH (11:09)
[2022-08-21] MEDS: valACYclovir HCL 1000 MG TABLET PO SCH (11:09)
[2022-08-21] MEDS ORDERED: INSULIN (NOVOLOG) ASPART 100 UNITS/ML 10ML VIAL ONE (11:30)
[2022-08-21] MEDS: ATORVASTATIN CA 80 MG TABLET (FP) PO SCH (22:56)
[2022-08-21] MEDS: TAMSULOSIN HCL 0.4 MG CAP PO SCH (22:56)
[2022-08-21] MEDS: CEFTRIAXONE 1 GM in DEXTROSE 5%-WATER - 50 ML IVPB SCH (22:59)
[2022-08-21] MEDS: PRIMIDONE 50 MG TABLET PO SCH (23:47)
[2022-08-21] MEDS: AMMONIUM LACTATE 12% LOTION 225 GM BOTTLE TP SCH (23:47)
[2022-08-22] MEDS: INSULIN SLIDING SCALE (NOVOLOG) 1 VIAL SQ SCH ×4 (07:10→21:35)
[2022-08-22] MEDS: LEVOTHYROXINE NA 25 MCG TABLET (FP) PO SCH ×2 (07:13→07:17)
[2022-08-22] MEDS ORDERED: RANOLAZINE E.R. 500 MG TABLET (FP) ONE ×2 (08:41→21:22)
[2022-08-22] MEDS ORDERED: valACYclovir HCL 500 MG TABLET (FP) ONE (08:41)
[2022-08-22] MEDS: INSULIN (LEVEMIR) 100 UNITS/ML UNITS SQ SCH ×2 (08:45→16:24)
[2022-08-22] MEDS: FUROSEMIDE 20 MG TABLET (FP) PO SCH (09:12)
[2022-08-22] MEDS: SPIRONOLACTONE 25 MG TABLET PO SCH (09:12)
[2022-08-22] MEDS: CYANOCOBALAMIN 1,000 MCG TABLET (FP) PO SCH (09:12)
[2022-08-22] MEDS: amLODIPine BESYLATE 5 MG TABLET (FP) PO SCH (09:12)
[2022-08-22] MEDS: APIXABAN 5 MG TABLET PO SCH ×2 (09:13→21:32)
[2022-08-22] MEDS: RANOLAZINE E.R. 1,000 MG TABLET (FP) PO SCH ×2 (09:13→21:33)
[2022-08-22] MEDS: CARVEDILOL 12.5 MG TABLET (FP) PO SCH ×2 (09:13→21:32)
[2022-08-22] MEDS: valACYclovir HCL 1000 MG TABLET PO SCH (09:14)
[2022-08-22] MEDS ORDERED: INSULIN (NOVOLOG) ASPART 100 UNITS/ML 10ML VIAL ONE (10:11)
[2022-08-22] MEDS: AMMONIUM LACTATE 12% LOTION 225 GM BOTTLE TP SCH ×2 (10:18→21:31)
[2022-08-22] MEDS: TIOTROPIUM BROMIDE 2.5 MCG (SPIRIVA) RESPIMAT INHALER IH SCH (10:19)
[2022-08-22] MEDS: BUDESONIDE/FORMETEROL FUMARATE 80/4.5 mcg INHALER IH SCH ×2 (10:19→21:35)
[2022-08-22] MEDS: ACETAMINOPHEN 325 MG TABLET (FP) PO PRN (15:20)
[2022-08-22] MEDS: KETOROLAC TROMETHAMINE 30 MG/1 ML VIAL IVPUSH PRN (15:21)
[2022-08-22] MEDS: CEFTRIAXONE 1 GM in DEXTROSE 5%-WATER - 50 ML IVPB SCH (21:31)
[2022-08-22] MEDS: PRIMIDONE 50 MG TABLET PO SCH (21:32)
[2022-08-22] MEDS: TAMSULOSIN HCL 0.4 MG CAP PO SCH (21:32)
[2022-08-22] MEDS: ATORVASTATIN CA 80 MG TABLET (FP) PO SCH (21:32)
[2022-08-22] MEDS: GABAPENTIN 100 MG CAPSULE PO SCH (21:33)
[2022-08-23] MEDS: LEVOTHYROXINE NA 25 MCG TABLET (FP) PO SCH (06:19)
[2022-08-23] MEDS: GABAPENTIN 100 MG CAPSULE PO SCH ×3 (06:19→21:15)
[2022-08-23] MEDS: INSULIN (LEVEMIR) 100 UNITS/ML UNITS SQ SCH ×2 (06:19→16:55)
[2022-08-23] MEDS: INSULIN SLIDING SCALE (NOVOLOG) 1 VIAL SQ SCH ×4 (06:19→21:17)
[2022-08-23] MEDS ORDERED: RANOLAZINE E.R. 500 MG TABLET (FP) ONE ×2 (09:47→21:13)
[2022-08-23] MEDS ORDERED: valACYclovir HCL 500 MG TABLET (FP) ONE (09:47)
[2022-08-23] MEDS: KETOROLAC TROMETHAMINE 30 MG/1 ML VIAL IVPUSH PRN (09:49)
[2022-08-23] MEDS: APIXABAN 5 MG TABLET PO SCH ×2 (09:52→21:16)
[2022-08-23] MEDS: amLODIPine BESYLATE 5 MG TABLET (FP) PO SCH (09:53)
[2022-08-23] MEDS: CARVEDILOL 12.5 MG TABLET (FP) PO SCH ×2 (09:53→21:16)
[2022-08-23] MEDS: valACYclovir HCL 1000 MG TABLET PO SCH (09:53)
[2022-08-23] MEDS: RANOLAZINE E.R. 1,000 MG TABLET (FP) PO SCH ×2 (09:54→21:19)
[2022-08-23] MEDS: FUROSEMIDE 20 MG TABLET (FP) PO SCH (09:55)
[2022-08-23] MEDS: SPIRONOLACTONE 25 MG TABLET PO SCH (09:55)
[2022-08-23] MEDS: AMMONIUM LACTATE 12% LOTION 225 GM BOTTLE TP SCH ×2 (09:56→22:00)
[2022-08-23] MEDS: BUDESONIDE/FORMETEROL FUMARATE 80/4.5 mcg INHALER IH SCH ×2 (09:58→21:19)
[2022-08-23] MEDS: TIOTROPIUM BROMIDE 2.5 MCG (SPIRIVA) RESPIMAT INHALER IH SCH (09:58)
[2022-08-23] MEDS: CYANOCOBALAMIN 1,000 MCG TABLET (FP) PO SCH (10:00)
[2022-08-23] MEDS ORDERED: INSULIN (NOVOLOG) ASPART 100 UNITS/ML 10ML VIAL ONE (11:31)
[2022-08-23] MEDS: TAMSULOSIN HCL 0.4 MG CAP PO SCH (21:16)
[2022-08-23] MEDS: ATORVASTATIN CA 80 MG TABLET (FP) PO SCH (21:16)
[2022-08-23] MEDS: CEFTRIAXONE 1 GM in DEXTROSE 5%-WATER - 50 ML IVPB SCH (21:16)
[2022-08-23] MEDS: PRIMIDONE 50 MG TABLET PO SCH (22:00)
[2022-08-24] MEDS: KETOROLAC TROMETHAMINE 30 MG/1 ML VIAL IVPUSH PRN ×2 (01:28→10:32)
[2022-08-24] MEDS: ACETAMINOPHEN 325 MG TABLET (FP) PO PRN (05:49)
[2022-08-24] MEDS: GABAPENTIN 100 MG CAPSULE PO SCH ×4 (05:49→23:05)
[2022-08-24] MEDS: INSULIN SLIDING SCALE (NOVOLOG) 1 VIAL SQ SCH ×4 (07:42→23:20)
[2022-08-24] MEDS: INSULIN (LEVEMIR) 100 UNITS/ML UNITS SQ SCH ×2 (07:43→17:19)
[2022-08-24] MEDS: LEVOTHYROXINE NA 25 MCG TABLET (FP) PO SCH (08:12)
[2022-08-24 09:31] LABS: BASO % 0.7 % (0-2.0); HEMATOCRIT 36.8 % (35.4-49); HEMOGLOBIN 12.9 GM/dL (11.7-16.9); LYMPH % 27.2 % (8-40); MCH 32.2 pg (25.7-33.7); MEAN CELL VOLUME 91.9 fl (80-96); NEUT % 59.1 % (42.8-82.8); PLATELET COUNT 124 10^3/uL (134-434); RDW 12.8 % (11.9-15.9); WHITE BLOOD COUNT 5.5 K/mm3 (4.0-10.0)
[2022-08-24 09:36] LABS: CALCIUM 8.8 mg/dL (8.5-10.1)
[2022-08-24 09:37] LABS: ALBUMIN 3.1 g/dl (3.4-5.0); BLOOD UREA NITROGEN 38.4 mg/dL (7-18)
[2022-08-24] MEDS ORDERED: valACYclovir HCL 500 MG TABLET (FP) ONE ×3 (09:37→10:18)
[2022-08-24 09:40] LABS: CREATININE 1.4 mg/dL (0.55-1.3); TOT PROT 6.5 g/dl (6.4-8.2)
[2022-08-24 09:42] LABS: BILIRUBIN,TOTAL 0.4 mg/dL (0.2-1)
[2022-08-24] MEDS: APIXABAN 5 MG TABLET PO SCH ×2 (10:12→23:05)
[2022-08-24] MEDS: RANOLAZINE E.R. 500 MG TABLET (FP) PO SCH ×2 (10:13→23:05)
[2022-08-24] MEDS: amLODIPine BESYLATE 5 MG TABLET (FP) PO SCH (10:13)
[2022-08-24] MEDS: SPIRONOLACTONE 25 MG TABLET PO SCH (10:13)
[2022-08-24] MEDS: FUROSEMIDE 20 MG TABLET (FP) PO SCH (10:13)
[2022-08-24] MEDS: CARVEDILOL 12.5 MG TABLET (FP) PO SCH ×2 (10:13→23:05)
[2022-08-24] MEDS: valACYclovir HCL 1000 MG TABLET PO SCH (10:16)
[2022-08-24] MEDS: BUDESONIDE/FORMETEROL FUMARATE 80/4.5 mcg INHALER IH SCH ×2 (10:42→23:09)
[2022-08-24] MEDS: TIOTROPIUM BROMIDE 2.5 MCG (SPIRIVA) RESPIMAT INHALER IH SCH (10:43)
[2022-08-24] MEDS: AMMONIUM LACTATE 12% LOTION 225 GM BOTTLE TP SCH ×2 (10:48→23:06)
[2022-08-24] MEDS: CYANOCOBALAMIN 1,000 MCG TABLET (FP) PO SCH (10:54)
[2022-08-24] MEDS ORDERED: INSULIN (NOVOLOG) ASPART 100 UNITS/ML 10ML VIAL ONE ×2 (11:33→18:21)
[2022-08-24 14:05] VITALS: RESP 18
[2022-08-24] MEDS ORDERED: INSULIN (LEVEMIR) 100 UNITS/ML UNITS SQ ONE (18:21)
[2022-08-24] MEDS: TAMSULOSIN HCL 0.4 MG CAP PO SCH (23:05)
[2022-08-24] MEDS: ATORVASTATIN CA 80 MG TABLET (FP) PO SCH (23:05)
[2022-08-24] MEDS: PRIMIDONE 50 MG TABLET PO SCH (23:06)
[2022-08-24] MEDS: CEFTRIAXONE 1 GM in DEXTROSE 5%-WATER - 50 ML IVPB SCH (23:07)
[2022-08-25] MEDS: KETOROLAC TROMETHAMINE 30 MG/1 ML VIAL IVPUSH PRN ×3 (00:04→18:50)
[2022-08-25] MEDS: GABAPENTIN 100 MG CAPSULE PO SCH ×3 (06:00→21:47)
[2022-08-25] MEDS: LEVOTHYROXINE NA 25 MCG TABLET (FP) PO SCH (06:00)
[2022-08-25] MEDS: INSULIN (LEVEMIR) 100 UNITS/ML UNITS SQ SCH ×3 (06:18→22:03)
[2022-08-25] MEDS: INSULIN SLIDING SCALE (NOVOLOG) 1 VIAL SQ SCH ×4 (06:19→21:49)
[2022-08-25] MEDS ORDERED: FUROSEMIDE 20 MG TABLET (FP) PO SCH (10:12)
[2022-08-25] MEDS: FUROSEMIDE 20 MG TABLET (FP) PO SCH (10:15)
[2022-08-25] MEDS: RANOLAZINE E.R. 500 MG TABLET (FP) PO SCH ×2 (10:18→21:47)
[2022-08-25] MEDS: APIXABAN 5 MG TABLET PO SCH ×2 (10:19→21:47)
[2022-08-25] MEDS: SPIRONOLACTONE 25 MG TABLET PO SCH (10:19)
[2022-08-25] MEDS: valACYclovir HCL 500 MG TABLET (FP) PO SCH (10:20)
[2022-08-25] MEDS: CARVEDILOL 12.5 MG TABLET (FP) PO SCH ×2 (10:22→21:47)
[2022-08-25] MEDS: amLODIPine BESYLATE 5 MG TABLET (FP) PO SCH (10:22)
[2022-08-25] MEDS: BUDESONIDE/FORMETEROL FUMARATE 80/4.5 mcg INHALER IH SCH ×2 (10:30→21:55)
[2022-08-25] MEDS: TIOTROPIUM BROMIDE 2.5 MCG (SPIRIVA) RESPIMAT INHALER IH SCH (10:32)
[2022-08-25] MEDS: AMMONIUM LACTATE 12% LOTION 225 GM BOTTLE TP SCH ×2 (10:35→21:56)
[2022-08-25] MEDS: CYANOCOBALAMIN 1,000 MCG TABLET (FP) PO SCH ×2 (11:59→16:12)
[2022-08-25] MEDS: ACETAMINOPHEN 325 MG TABLET (FP) PO PRN (13:36)
[2022-08-25] MEDS ORDERED: INSULIN (NOVOLOG) ASPART 100 UNITS/ML 10ML VIAL ONE (21:45)
[2022-08-25] MEDS: ATORVASTATIN CA 80 MG TABLET (FP) PO SCH (21:47)
[2022-08-25] MEDS: TAMSULOSIN HCL 0.4 MG CAP PO SCH (21:47)
[2022-08-25] MEDS: PRIMIDONE 50 MG TABLET PO SCH (21:48)
[2022-08-25] MEDS: CEFTRIAXONE 1 GM in DEXTROSE 5%-WATER - 50 ML IVPB SCH (21:55)
[2022-08-26] MEDS: GABAPENTIN 100 MG CAPSULE PO SCH ×2 (06:56→13:39)
[2022-08-26] MEDS: LEVOTHYROXINE NA 25 MCG TABLET (FP) PO SCH (06:56)
[2022-08-26] MEDS: INSULIN (LEVEMIR) 100 UNITS/ML UNITS SQ SCH (06:56)
[2022-08-26] MEDS: INSULIN SLIDING SCALE (NOVOLOG) 1 VIAL SQ SCH (06:57)
[2022-08-26] MEDS: KETOROLAC TROMETHAMINE 30 MG/1 ML VIAL IVPUSH PRN (08:36)
[2022-08-26] MEDS: RANOLAZINE E.R. 500 MG TABLET (FP) PO SCH (09:00)
[2022-08-26] MEDS: CARVEDILOL 12.5 MG TABLET (FP) PO SCH (09:00)
[2022-08-26] MEDS: valACYclovir HCL 500 MG TABLET (FP) PO SCH (09:00)
[2022-08-26] MEDS: APIXABAN 5 MG TABLET PO SCH (09:00)
[2022-08-26] MEDS: amLODIPine BESYLATE 5 MG TABLET (FP) PO SCH (09:00)
[2022-08-26] MEDS: SPIRONOLACTONE 25 MG TABLET PO SCH (09:00)
[2022-08-26] MEDS: CYANOCOBALAMIN 1,000 MCG TABLET (FP) PO SCH (09:01)
[2022-08-26] MEDS: TIOTROPIUM BROMIDE 2.5 MCG (SPIRIVA) RESPIMAT INHALER IH SCH (09:03)
[2022-08-26] MEDS: AMMONIUM LACTATE 12% LOTION 225 GM BOTTLE TP SCH (09:03)
[2022-08-26] MEDS: BUDESONIDE/FORMETEROL FUMARATE 80/4.5 mcg INHALER IH SCH (09:04)
[2022-08-26 14:12] VITALS: BP 120/72; PULSE 57; TEMP 98.3
== END 2022-08-26 15:06 | disposition home or self-care (01) | DRG 602 ==
LOC: JER 17:11 → JERBED 19:23 → J6S 08-21 04:37
PROVIDERS: ADMIT Internal Medicine; ATTEND Family Medicine
DX: L03.115 Cellulitis of right lower limb (principal); I50.33 Acute on chronic diastolic (congestive) heart failure; M86.9 Osteomyelitis, unspecified; E87.1 Hypo-osmolality and hyponatremia; I13.0 Hypertensive heart and chronic kidney disease with heart failure and stage 1 through stage 4 chronic kidney disease, or unspecified chronic kidney disease; G20 Parkinson's disease; E78.5 Hyperlipidemia, unspecified; J44.9 Chronic obstructive pulmonary disease, unspecified; G47.30 Sleep apnea, unspecified; E03.9 Hypothyroidism, unspecified; K21.9 Gastro-esophageal reflux disease without esophagitis; K58.9 Irritable bowel syndrome, unspecified; E11.51 Type 2 diabetes mellitus with diabetic peripheral angiopathy without gangrene; E11.610 Type 2 diabetes mellitus with diabetic neuropathic arthropathy; E66.9 Obesity, unspecified; Z68.34 Body mass index [BMI] 34.0-34.9, adult; E11.69 Type 2 diabetes mellitus with other specified complication; E11.65 Type 2 diabetes mellitus with hyperglycemia; K52.9 Noninfective gastroenteritis and colitis, unspecified; R60.0 Localized edema; N40.0 Benign prostatic hyperplasia without lower urinary tract symptoms; I48.0 Paroxysmal atrial fibrillation; I25.119 Atherosclerotic heart disease of native coronary artery with unspecified angina pectoris; B35.3 Tinea pedis; R26.81 Unsteadiness on feet; E11.22 Type 2 diabetes mellitus with diabetic chronic kidney disease; N18.9 Chronic kidney disease, unspecified; M50.10 Cervical disc disorder with radiculopathy, unspecified cervical region; M51.16 Intervertebral disc disorders with radiculopathy, lumbar region; Z79.01 Long term (current) use of anticoagulants
CPT/HCPCS: 0241U-QW; 36415; 71046-TC-FY; 73590-TC-RT-FY; 73610-TC-RT-FY; 73630-TC-RT-FY; 80048; 80053; 82962; 83735; 83880; 84100; 84443; 84484; 85025; 85610; 85651; 85730; 86140; 87040; 93005; 93010; 93971-TC; 99285-25

== ENCOUNTER 2022-08-26 23:38 | Emergency (ER) | payer OTHER ==
[2022-08-26 23:44] VITALS: BP 148/68; PULSE 70; RESP 16; TEMP 98.1; BMI 33.9
== END 2022-08-27 02:45 | disposition home or self-care (01) ==
LOC: JER 23:38
DX: K59.00 Constipation, unspecified (principal)
CPT/HCPCS: 99282-25

== ENCOUNTER 2022-09-10 23:33 | Observation (INO) | payer OTHER ==
[2022-09-10 23:39] VITALS: BMI 33.2
[2022-09-11] MEDS ORDERED: ACETAMINOPHEN 1000 MG/100 ML BAG IVPB ONE (00:51)
[2022-09-11] MEDS ORDERED: SODIUM CHLORIDE 0.9% 500 ML INFUS.BAG IV ONE (00:51)
[2022-09-11] MEDS ORDERED: FAMOTIDINE 20 MG/50 ML IVPB 20 MG/50 ML MG IVPB ONE ×2 (00:52→00:57)
[2022-09-11] MEDS ORDERED: ACETAMINOPHEN INJECTION 100 ML IVPB ONE (00:56)
[2022-09-11 01:20] LABS: BASO % 0.4 % (0-2.0); EOS % 3.2 % (0-4.5); HEMATOCRIT 38.1 % (35.4-49); HEMOGLOBIN 13.1 GM/dL (11.7-16.9); LYMPH % 23.2 % (8-40); MCH 31.5 pg (25.7-33.7); MCHC 34.4 g/dl (32.0-35.9); MEAN CELL VOLUME 91.6 fl (80-96); MEAN PLT VOLUME 8.3 fl (7.5-11.1); MONO % 9.8 % (3.8-10.2); NEUT % 63.4 % (42.8-82.8); PLATELET COUNT 156 10^3/uL (134-434); RBC 4.16 M/mm3 (4.00-5.60); RDW 12.9 % (11.9-15.9); WHITE BLOOD COUNT 8.4 K/mm3 (4.0-10.0)
[2022-09-11 01:22] LABS: VENOUS BASE EXCESS 1.6 mmol/L (-2-2); VENOUS O2 SATURATION 59.1 % (70-80); VENOUS PCO2 49.6 mmHg (38-52); VENOUS PH 7.366 (7.310-7.410)
[2022-09-11] MEDS ORDERED: MAG HYDROX/AL HYDROX/SIMETH 30 ML UNIT-DOSE CUP PO ONE (01:22)
[2022-09-11] MEDS ORDERED: ONDANSETRON 4 MG/2 ML VIAL IVPB ONE (01:22)
[2022-09-11] MEDS ORDERED: ONDANSETRON 4 MG/2 ML VIAL ONE (01:30)
[2022-09-11] MEDS ORDERED: MAG HYDROX/AL HYDROX/SIMETH 30 ML UNIT-DOSE CUP ONE (01:30)
[2022-09-11 01:31] LABS: INR 1.15 (0.83-1.09); PROTHROMBIN TIME (PATIENT) 13.3 SEC (9.7-13.0)
[2022-09-11 01:47] LABS: CHLORIDE 97 mmol/L (98-107); SODIUM 131 mmol/L (136-145)
[2022-09-11 01:51] LABS: ALBUMIN 3.2 g/dl (3.4-5.0); ANION GAP 6 MMOL/L (8-16); BLOOD UREA NITROGEN 32.4 mg/dL (7-18); CALCIUM 9.1 mg/dL (8.5-10.1); CO2 29 mmol/L (21-32)
[2022-09-11 01:52] LABS: LIPASE 597 U/L (73-393)
[2022-09-11 01:54] LABS: CREATININE 1.4 mg/dL (0.55-1.3); PHOSPHOROUS 4.2 mg/dL (2.5-4.9); SGPT/ALT 48 U/L (13-61)
[2022-09-11 01:55] LABS: SGOT/AST 25 U/L (15-37)
[2022-09-11 01:56] LABS: BILIRUBIN,TOTAL 0.4 mg/dL (0.2-1); TOT PROT 6.5 g/dl (6.4-8.2)
[2022-09-11 01:57] LABS: ALK PHOS 89 U/L (45-117)
[2022-09-11 02:07] LABS: GLUCOSE,RANDOM 426 mg/dL (74-106)
[2022-09-11] MEDS ORDERED: MINERAL OIL ENEMA 133 ML ENEMA PR ONE (04:58)
[2022-09-11] MEDS ORDERED: POLYETHYLENE GLYCOL (HEALTHYLAX) 3350 17 GM PACKET PO ONE (05:00)
[2022-09-11] MEDS ORDERED: DOCUSATE NA 100 MG/10 ML UNIT-DOSE CUPS PO ONE (05:00)
[2022-09-11] MEDS ORDERED: CEFTRIAXONE 1 GM in DEXTROSE 5%-WATER - 100 ML IVPB ONE (05:03)
[2022-09-11] MEDS ORDERED: VANCOMYCIN 1 GM in D5W (PRE-DOCKED) 1,000 MG/250 ML (RESTRICTED TO ID ONLY IVPB ONE (05:03)
[2022-09-11] MEDS ORDERED: DOCUSATE SODIUM 100 MG CAPSULE (FP) PO ONE (05:03)
[2022-09-11] MEDS ORDERED: CEFTRIAXONE 1 GM/50 ML BAG ONE (05:07)
[2022-09-11] MEDS ORDERED: VANCOMYCIN/WATER FOR INJ (PEG) 1,000 MG/200 ML BAG IVPB ONE (05:27)
[2022-09-11] MEDS ORDERED: POLYETHYLENE GLYCOL (HEALTHYLAX) 3350 17 GM PACKET ONE (05:36)
[2022-09-11 08:08] LABS: EPI CELLS 0 /uL (0-25.1); HYALINE CASTS 0 /uL (0-3.1); PH,URINE 5.5 (5.0-8.0); URINE APPEARANCE CLEAR; URINE BACTERIA 1 /uL (0-1359); URINE BILIRUBIN NEGATIVE (NEGATIVE); URINE COLOR YELLOW; URINE GLUCOSE (UA) 3+ (NEGATIVE); URINE KETONE NEGATIVE (NEGATIVE); URINE LEUK ESTERASE NEGATIVE (NEGATIVE); URINE NITRITE NEGATIVE (NEGATIVE); URINE PROTEIN 1+ (NEGATIVE); URINE RBC 19 /uL (0-23.9); URINE UROBILINOGEN 0.2 mg/dL (0.2-1.0); URINE WBC 1 /uL (0-25.8)
[2022-09-11 08:21] LABS: N-TERMINAL BNP 29.7 pg/ml (5-125)
[2022-09-11] MEDS ORDERED: RANOLAZINE E.R. 500 MG TABLET (FP) PO SCH (10:45)
[2022-09-11] MEDS ORDERED: valACYclovir HCL 500 MG TABLET (FP) ONE (11:28)
[2022-09-11] MEDS ORDERED: FUROSEMIDE 40 MG TABLET (FP) ONE ×2 (11:28→14:03)
[2022-09-11] MEDS ORDERED: CARVEDILOL 12.5 MG TABLET (FP) ONE (11:28)
[2022-09-11] MEDS ORDERED: GABAPENTIN 300 MG CAPSULE ONE (11:29)
[2022-09-11] MEDS ORDERED: buPROPion HCL 100 MG TABLET ONE (11:29)
[2022-09-11] MEDS ORDERED: TAMSULOSIN HCL 0.4 MG CAP ONE (11:29)
[2022-09-11] MEDS ORDERED: LOSARTAN POTASSIUM 50 MG TABLET ONE (11:29)
[2022-09-11] MEDS ORDERED: FAMOTIDINE 20 MG TABLET ONE (11:29)
[2022-09-11] MEDS ORDERED: SPIRONOLACTONE 25 MG TABLET ONE (11:30)
[2022-09-11] MEDS ORDERED: RANOLAZINE E.R. 500 MG TABLET (FP) ONE (11:30)
[2022-09-11] MEDS: SPIRONOLACTONE 25 MG TABLET PO SCH (11:36)
[2022-09-11] MEDS: FUROSEMIDE 40 MG TABLET (FP) PO SCH ×2 (11:36→14:14)
[2022-09-11] MEDS: CARVEDILOL 12.5 MG TABLET (FP) PO SCH ×2 (11:36→22:44)
[2022-09-11] MEDS: TAMSULOSIN HCL 0.4 MG CAP PO SCH (11:37)
[2022-09-11] MEDS: FAMOTIDINE 20 MG TABLET PO SCH ×2 (11:37→22:44)
[2022-09-11] MEDS: valACYclovir HCL 500 MG TABLET (FP) PO SCH (11:37)
[2022-09-11] MEDS: LOSARTAN POTASSIUM 50 MG TABLET PO SCH (11:37)
[2022-09-11] MEDS ORDERED: DOCUSATE SODIUM 100 MG CAPSULE (FP) PO PRN (11:54)
[2022-09-11] MEDS ORDERED: GABAPENTIN 100 MG CAPSULE PO SCH (14:00)
[2022-09-11] MEDS ORDERED: MEROPENEM 1 GM VIAL (RESTRICTED TO ID) IVPB ONE (14:03)
[2022-09-11] MEDS: MEROPENEM 1 GM in DEXTROSE 5%-WATER 100 ML IVPB SCH ×2 (14:14→18:42)
[2022-09-11] MEDS ORDERED: ACETAMINOPHEN 1000 MG/100 ML BAG IVPB PRN (16:07)
[2022-09-11] MEDS: INSULIN (NOVOLOG) ASPART 100 UNITS/ML 10ML VIAL SQ SCH (16:53)
[2022-09-11] MEDS: INSULIN SLIDING SCALE (NOVOLOG) 1 VIAL SQ SCH ×2 (16:53→22:45)
[2022-09-11] MEDS ORDERED: methaDONE HCL 40 MG DISPERSABLE TABLET PO ONE (17:25)
[2022-09-11] MEDS ORDERED: INSULIN (LEVEMIR) 100 UNITS/ML UNITS SQ SCH (22:00)
[2022-09-11] MEDS: RANOLAZINE E.R. 500 MG TABLET (FP) PO SCH (22:44)
[2022-09-11] MEDS: SODIUM PHOSPHATE/NA BIPHOS 133 ML ENEMA RC ONE (22:44)
[2022-09-11] MEDS: ATORVASTATIN CA 80 MG TABLET (FP) PO SCH (22:44)
[2022-09-11] MEDS: POLYETHYLENE GLYCOL (HEALTHYLAX) 3350 17 GM PACKET PO SCH (22:44)
[2022-09-11] MEDS: INSULIN (LEVEMIR) 100 UNITS/ML UNITS SQ SCH (22:47)
[2022-09-11] MEDS ORDERED: diphenhydrAMINE HCL 25 MG CAPSULE (FP) PO ONE (23:40)
[2022-09-12] MEDS: PRIMIDONE 50 MG TABLET PO SCH ×2 (00:59→22:37)
[2022-09-12] MEDS: BUDESONIDE/FORMETEROL FUMARATE 80/4.5 mcg INHALER IH SCH ×3 (01:00→21:36)
[2022-09-12] MEDS: MEROPENEM 1 GM in DEXTROSE 5%-WATER 100 ML IVPB SCH (01:10)
[2022-09-12] MEDS: FUROSEMIDE 40 MG TABLET (FP) PO SCH ×2 (06:31→14:10)
[2022-09-12] MEDS: INSULIN SLIDING SCALE (NOVOLOG) 1 VIAL SQ SCH ×4 (06:31→21:35)
[2022-09-12] MEDS: INSULIN (LEVEMIR) 100 UNITS/ML UNITS SQ SCH ×2 (06:31→21:34)
[2022-09-12] MEDS: INSULIN (NOVOLOG) ASPART 100 UNITS/ML 10ML VIAL SQ SCH ×3 (06:31→16:30)
[2022-09-12] MEDS: LEVOTHYROXINE NA 25 MCG TABLET (FP) PO SCH (06:33)
[2022-09-12 08:55] LABS: HEMATOCRIT 35.3 % (35.4-49); HEMOGLOBIN 12.3 GM/dL (11.7-16.9); MCH 32.1 pg (25.7-33.7); MCHC 34.9 g/dl (32.0-35.9); MEAN PLT VOLUME 7.9 fl (7.5-11.1); PLATELET COUNT 145 10^3/uL (134-434); RBC 3.84 M/mm3 (4.00-5.60); RDW 13.4 % (11.9-15.9); WHITE BLOOD COUNT 7.5 K/mm3 (4.0-10.0)
[2022-09-12 09:26] LABS: ALBUMIN 3.2 g/dl (3.4-5.0); BLOOD UREA NITROGEN 38.7 mg/dL (7-18); CALCIUM 9.3 mg/dL (8.5-10.1); MAGNESIUM 2.8 mg/dL (1.8-2.4)
[2022-09-12 09:29] LABS: CREATININE 1.5 mg/dL (0.55-1.3); PHOSPHOROUS 5.1 mg/dL (2.5-4.9)
[2022-09-12 09:32] LABS: BILIRUBIN,TOTAL 0.3 mg/dL (0.2-1); TOT PROT 6.6 g/dl (6.4-8.2)
[2022-09-12] MEDS ORDERED: BUPROPION HCL 100 MG PO SCH (10:00)
[2022-09-12] MEDS ORDERED: TIOTROPIUM BROMIDE 2.5 MCG (SPIRIVA) RESPIMAT INHALER IH SCH (10:00)
[2022-09-12] MEDS: POLYETHYLENE GLYCOL (HEALTHYLAX) 3350 17 GM PACKET PO SCH (10:21)
[2022-09-12] MEDS: valACYclovir HCL 500 MG TABLET (FP) PO SCH (10:22)
[2022-09-12] MEDS: RANOLAZINE E.R. 500 MG TABLET (FP) PO SCH ×2 (10:22→21:34)
[2022-09-12] MEDS: LOSARTAN POTASSIUM 50 MG TABLET PO SCH (10:23)
[2022-09-12] MEDS: CARVEDILOL 12.5 MG TABLET (FP) PO SCH ×2 (10:23→21:34)
[2022-09-12] MEDS: FAMOTIDINE 20 MG TABLET PO SCH ×2 (10:23→21:35)
[2022-09-12] MEDS: SPIRONOLACTONE 25 MG TABLET PO SCH (10:24)
[2022-09-12] MEDS: TAMSULOSIN HCL 0.4 MG CAP PO SCH (10:33)
[2022-09-12] MEDS ORDERED: diphenhydrAMINE HCL 25 MG CAPSULE (FP) PO PRN (11:59)
[2022-09-12] MEDS ORDERED: INSULIN (NOVOLOG) ASPART 100 UNITS/ML 10ML VIAL ONE ×2 (12:11→17:48)
[2022-09-12] MEDS ORDERED: MINERAL OIL ENEMA 133 ML ENEMA NR ONE (13:55)
[2022-09-12] MEDS: RIFAXIMIN 550 MG TABLET PO SCH ×2 (14:10→21:34)
[2022-09-12] MEDS: LACTULOSE 20 GM/30 ML UDC (FOR ORAL USE ONLY) PO SCH ×2 (14:43→21:35)
[2022-09-12] MEDS: ACETAMINOPHEN 325 MG TABLET (FP) PO PRN ×2 (17:05→21:34)
[2022-09-12] MEDS: SIMETHICONE 80 MG TAB.CHEW (FP) PO SCH ×2 (17:06→21:34)
[2022-09-12] MEDS: LIPASE/PROTEASE/AMYLASE 36,000 UNIT CAPSULE PO SCH (18:19)
[2022-09-12] MEDS: ATORVASTATIN CA 80 MG TABLET (FP) PO SCH (21:34)
[2022-09-12] MEDS: SODIUM PHOSPHATE/NA BIPHOS 133 ML ENEMA RC ONE (21:52)
[2022-09-13] MEDS ORDERED: POLYETHYLENE GLYCOL (HEALTHYLAX) 3350 17 GM PACKET PO SCH (06:00)
[2022-09-13] MEDS: LACTULOSE 20 GM/30 ML UDC (FOR ORAL USE ONLY) PO SCH (06:07)
[2022-09-13] MEDS: FUROSEMIDE 40 MG TABLET (FP) PO SCH (06:08)
[2022-09-13] MEDS: RIFAXIMIN 550 MG TABLET PO SCH (06:08)
[2022-09-13] MEDS: LEVOTHYROXINE NA 25 MCG TABLET (FP) PO SCH (06:08)
[2022-09-13] MEDS: INSULIN (LEVEMIR) 100 UNITS/ML UNITS SQ SCH (06:09)
[2022-09-13] MEDS: INSULIN (NOVOLOG) ASPART 100 UNITS/ML 10ML VIAL SQ SCH (06:10)
[2022-09-13] MEDS: INSULIN SLIDING SCALE (NOVOLOG) 1 VIAL SQ SCH (06:21)
[2022-09-13 08:20] LABS: BASO % 0.8 % (0-2.0); EOS % 4.2 % (0-4.5); HEMATOCRIT 37.1 % (35.4-49); HEMOGLOBIN 12.9 GM/dL (11.7-16.9); LYMPH % 26.9 % (8-40); MCH 32.1 pg (25.7-33.7); MCHC 34.8 g/dl (32.0-35.9); MEAN CELL VOLUME 92.4 fl (80-96); MEAN PLT VOLUME 8.2 fl (7.5-11.1); MONO % 12.4 % (3.8-10.2); NEUT % 55.7 % (42.8-82.8); PLATELET COUNT 140 10^3/uL (134-434); RBC 4.02 M/mm3 (4.00-5.60); RDW 13.2 % (11.9-15.9); WHITE BLOOD COUNT 6.1 K/mm3 (4.0-10.0)
[2022-09-13 08:49] LABS: BLOOD UREA NITROGEN 35.3 mg/dL (7-18); CALCIUM 9.9 mg/dL (8.5-10.1)
[2022-09-13 08:50] LABS: ALBUMIN 3.4 g/dl (3.4-5.0); MAGNESIUM 2.7 mg/dL (1.8-2.4)
[2022-09-13 08:52] LABS: CREATININE 1.3 mg/dL (0.55-1.3); PHOSPHOROUS 4.5 mg/dL (2.5-4.9)
[2022-09-13 08:54] LABS: BILIRUBIN,TOTAL 0.4 mg/dL (0.2-1)
[2022-09-13 08:57] VITALS: BP 164/98; PULSE 100; RESP 19; TEMP 97.5
[2022-09-13] MEDS: SPIRONOLACTONE 25 MG TABLET PO SCH (09:11)
[2022-09-13] MEDS: LOSARTAN POTASSIUM 50 MG TABLET PO SCH (09:12)
[2022-09-13] MEDS: FAMOTIDINE 20 MG TABLET PO SCH (09:12)
[2022-09-13] MEDS: LIPASE/PROTEASE/AMYLASE 36,000 UNIT CAPSULE PO SCH (09:12)
[2022-09-13] MEDS: RANOLAZINE E.R. 500 MG TABLET (FP) PO SCH (09:12)
[2022-09-13] MEDS: CARVEDILOL 12.5 MG TABLET (FP) PO SCH (09:12)
[2022-09-13] MEDS: TAMSULOSIN HCL 0.4 MG CAP PO SCH (09:12)
[2022-09-13] MEDS: valACYclovir HCL 500 MG TABLET (FP) PO SCH (09:13)
[2022-09-13] MEDS: SIMETHICONE 80 MG TAB.CHEW (FP) PO SCH (09:13)
== END 2022-09-13 10:00 | disposition home or self-care (01) ==
LOC: JER 23:33 → UNDOADMOB 09-11 05:04 → JERBED 09-11 05:04 → OBSVTOIN 09-11 10:28 → INTOOBSV 09-11 10:28 → J7W 09-11 14:47 → JERBED 09-11 14:47 → J7W 09-11 15:34
PROVIDERS: ADMIT Internal Medicine
PROC: 3E033NZ Introduction of Analgesics, Hypnotics, Sedatives into Peripheral Vein, Percutaneous Approach (ICD-10-PCS; principal; 2022-09-11)
PROC: 3E03329 Introduction of Other Anti-infective into Peripheral Vein, Percutaneous Approach (ICD-10-PCS; 2022-09-11)
PROC: 3E033GC Introduction of Other Therapeutic Substance into Peripheral Vein, Percutaneous Approach (ICD-10-PCS; 2022-09-11)
PROC: 3E013VG Introduction of Insulin into Subcutaneous Tissue, Percutaneous Approach (ICD-10-PCS; 2022-09-11)
PROC: 3E03329 Introduction of Other Anti-infective into Peripheral Vein, Percutaneous Approach (ICD-10-PCS; 2022-09-11)
PROC: 3E0337Z Introduction of Electrolytic and Water Balance Substance into Peripheral Vein, Percutaneous Approach (ICD-10-PCS; 2022-09-11)
DX: L03.115 Cellulitis of right lower limb (principal); N40.0 Benign prostatic hyperplasia without lower urinary tract symptoms; I11.0 Hypertensive heart disease with heart failure; G20 Parkinson's disease; I25.10 Atherosclerotic heart disease of native coronary artery without angina pectoris; E66.8 Other obesity; Z68.35 Body mass index [BMI] 35.0-35.9, adult; J44.9 Chronic obstructive pulmonary disease, unspecified; E78.5 Hyperlipidemia, unspecified; I48.91 Unspecified atrial fibrillation; Z88.0 Allergy status to penicillin; Z79.01 Long term (current) use of anticoagulants
CPT/HCPCS: 0241U-QW; 36415; 71045-TC-FY; 74177-TC; 76705-TC; 80053; 81003; 82272; 82803; 82962; 83605; 83690; 83735; 83880; 84100; 84484; 85025; 85027; 85610; 85730; 86850; 86900; 86901; 87086; 93005; 93010; 96361; 96365; 96366; 96367; 96372; 99285-25; G0378

== ENCOUNTER 2022-10-07 06:31 | Observation (INO) | payer OTHER ==
[2022-10-07 06:38] VITALS: BMI 35.2
[2022-10-07] MEDS ORDERED: VANCOMYCIN 1 GM in D5W (PRE-DOCKED) 1,000 MG/250 ML (RESTRICTED TO ID ONLY IVPB ONE (07:52)
[2022-10-07] MEDS ORDERED: ACETAMINOPHEN 1000 MG/100 ML BAG IVPB ONE (07:56)
[2022-10-07] MEDS ORDERED: ONDANSETRON 4 MG/2 ML VIAL IVPB ONE (07:56)
[2022-10-07] MEDS ORDERED: ACETAMINOPHEN INJECTION 100 ML IVPB ONE (08:22)
[2022-10-07] MEDS ORDERED: VANCOMYCIN/WATER FOR INJ (PEG) 1,000 MG/200 ML BAG IVPB ONE (08:23)
[2022-10-07] MEDS ORDERED: ONDANSETRON 4 MG/2 ML VIAL ONE (08:23)
[2022-10-07] MEDS ORDERED: CEFTRIAXONE 1 GM/50 ML BAG ONE (08:24)
[2022-10-07 08:56] LABS: BASO % 0.7 % (0-2.0); EOS % 3.1 % (0-4.5); HEMOGLOBIN 14.1 GM/dL (11.7-16.9); LYMPH % 23.1 % (8-40); MCH 32.2 pg (25.7-33.7); MCHC 35.3 g/dl (32.0-35.9); MEAN CELL VOLUME 91.4 fl (80-96); MEAN PLT VOLUME 8.6 fl (7.5-11.1); MONO % 8.9 % (3.8-10.2); NEUT % 64.2 % (42.8-82.8); PLATELET COUNT 154 10^3/uL (134-434); RBC 4.38 M/mm3 (4.00-5.60); RDW 13.2 % (11.9-15.9); WHITE BLOOD COUNT 8.8 K/mm3 (4.0-10.0)
[2022-10-07 09:09] LABS: INR 1.09 (0.83-1.09); PROTHROMBIN TIME (PATIENT) 12.6 SEC (9.7-13.0)
[2022-10-07 09:11] LABS: ACTIVATED PTT 37.1 SECONDS (25.2-36.5)
[2022-10-07 09:13] LABS: POTASSIUM 3.9 mmol/L (3.5-5.1)
[2022-10-07 09:15] LABS: ALBUMIN 3.7 g/dl (3.4-5.0); BLOOD UREA NITROGEN 39.5 mg/dL (7-18); CALCIUM 9.4 mg/dL (8.5-10.1); MAGNESIUM 2.5 mg/dL (1.8-2.4)
[2022-10-07 09:18] LABS: CREATININE 1.4 mg/dL (0.55-1.3)
[2022-10-07 09:20] LABS: BILIRUBIN,TOTAL 0.3 mg/dL (0.2-1); TOT PROT 7.6 g/dl (6.4-8.2)
[2022-10-07 09:23] LABS: N-TERMINAL BNP 25.2 pg/ml (5-125)
[2022-10-07] MEDS: CEFTRIAXONE 1 GM in DEXTROSE 5%-WATER - 100 ML IVPB ONE ×2 (09:35→09:39)
[2022-10-07] MEDS ORDERED: PEG 3350/NA SULF BICARB CL/KCL 4000 ML SOLN.RECON PO ONE (10:39)
[2022-10-07] MEDS ORDERED: FUROSEMIDE 40 MG/4 ML INJECTABLE VIAL IVPUSH ONE (10:39)
[2022-10-07] MEDS ORDERED: FUROSEMIDE 40 MG/4 ML INJECTABLE VIAL ONE (11:12)
[2022-10-07] MEDS ORDERED: INSULIN (NOVOLOG) ASPART 100 UNITS/ML 10ML VIAL ONE (16:31)
[2022-10-07] MEDS: ACETAMINOPHEN 325 MG TABLET (FP) PO PRN (16:34)
[2022-10-07] MEDS: INSULIN SLIDING SCALE (NOVOLOG) 1 VIAL SQ SCH ×2 (16:40→22:04)
[2022-10-07] MEDS ORDERED: LIDOCAINE PATCH REMOVAL MC SCH (22:00)
[2022-10-07] MEDS: APIXABAN 5 MG TABLET PO SCH (22:01)
[2022-10-07] MEDS: PREGABALIN 100 MG CAPSULE PO SCH (22:01)
[2022-10-07] MEDS: RANOLAZINE E.R. 500 MG TABLET (FP) PO SCH (22:01)
[2022-10-07] MEDS: ATORVASTATIN CA 80 MG TABLET (FP) PO SCH (22:01)
[2022-10-07] MEDS: buPROPion HCL 100 MG TABLET PO SCH (22:01)
[2022-10-07] MEDS: CARVEDILOL 12.5 MG TABLET (FP) PO SCH (22:01)
[2022-10-07] MEDS: INSULIN (LEVEMIR) 100 UNITS/ML UNITS SQ SCH (22:04)
[2022-10-07] MEDS: LIDOCAINE 5% TOPICAL PATCH TP SCH (22:05)
[2022-10-08] MEDS: PREGABALIN 100 MG CAPSULE PO SCH ×3 (06:12→22:28)
[2022-10-08] MEDS: ACETAMINOPHEN 325 MG TABLET (FP) PO PRN ×2 (06:12→22:52)
[2022-10-08] MEDS: INSULIN SLIDING SCALE (NOVOLOG) 1 VIAL SQ SCH ×4 (06:13→22:33)
[2022-10-08] MEDS ORDERED: INSULIN (LEVEMIR) 100 UNITS/ML UNITS SQ ONE (06:56)
[2022-10-08] MEDS: TAMSULOSIN HCL 0.4 MG CAP PO SCH (08:27)
[2022-10-08] MEDS: CARVEDILOL 12.5 MG TABLET (FP) PO SCH ×2 (10:22→22:28)
[2022-10-08] MEDS: LIDOCAINE 5% TOPICAL PATCH TP SCH (10:22)
[2022-10-08] MEDS: FUROSEMIDE 40 MG/4 ML INJECTABLE VIAL IVPUSH SCH (10:23)
[2022-10-08] MEDS: APIXABAN 5 MG TABLET PO SCH ×2 (10:23→22:29)
[2022-10-08] MEDS: amLODIPine BESYLATE 10 MG TABLET (FP) PO SCH (10:23)
[2022-10-08] MEDS: SPIRONOLACTONE 25 MG TABLET PO SCH (10:23)
[2022-10-08] MEDS: RANOLAZINE E.R. 500 MG TABLET (FP) PO SCH ×2 (10:23→22:29)
[2022-10-08] MEDS ORDERED: BISACODYL 5 MG TABLET.DR (FP) PO ONE (11:22)
[2022-10-08] MEDS: AZTREONAM 1 GM in DEXTROSE 5%-WATER - 50 ML IVPB SCH ×2 (13:16→17:09)
[2022-10-08] MEDS: buPROPion HCL 100 MG TABLET PO SCH ×2 (13:30→22:28)
[2022-10-08] MEDS ORDERED: POLYETHYLENE GLYCOL 3350 255 GM BTL PO ONE (14:00)
[2022-10-08] MEDS: LIPASE/PROTEASE/AMYLASE 36,000 UNIT CAPSULE PO SCH (17:47)
[2022-10-08] MEDS ORDERED: INSULIN (NOVOLOG) ASPART 100 UNITS/ML 10ML VIAL ONE (18:00)
[2022-10-08] MEDS ORDERED: RIFAXIMIN 550 MG TABLET PO SCH (22:00)
[2022-10-08] MEDS: ATORVASTATIN CA 80 MG TABLET (FP) PO SCH (22:28)
[2022-10-08] MEDS: RIFAXIMIN 550 MG TABLET PO SCH (22:28)
[2022-10-08] MEDS: INSULIN (LEVEMIR) 100 UNITS/ML UNITS SQ SCH (22:32)
[2022-10-08] MEDS: LIDOCAINE PATCH REMOVAL MC SCH (22:33)
[2022-10-09] MEDS: AZTREONAM 1 GM in DEXTROSE 5%-WATER - 50 ML IVPB SCH ×3 (02:57→17:34)
[2022-10-09] MEDS: ACETAMINOPHEN 325 MG TABLET (FP) PO PRN ×3 (06:37→22:49)
[2022-10-09] MEDS: INSULIN SLIDING SCALE (NOVOLOG) 1 VIAL SQ SCH ×4 (06:38→23:09)
[2022-10-09] MEDS: PREGABALIN 100 MG CAPSULE PO SCH ×3 (06:38→22:49)
[2022-10-09] MEDS: RIFAXIMIN 550 MG TABLET PO SCH ×3 (06:38→22:49)
[2022-10-09] MEDS: LIPASE/PROTEASE/AMYLASE 36,000 UNIT CAPSULE PO SCH ×3 (08:07→17:34)
[2022-10-09] MEDS: TAMSULOSIN HCL 0.4 MG CAP PO SCH (08:07)
[2022-10-09] MEDS ORDERED: MINERAL OIL ENEMA 133 ML ENEMA RC ONE (09:02)
[2022-10-09] MEDS ORDERED: POLYETHYLENE GLYCOL (HEALTHYLAX) 3350 17 GM PACKET PO SCH (10:00)
[2022-10-09 10:18] LABS: HEMATOCRIT 38.8 % (35.4-49); HEMOGLOBIN 13.6 GM/dL (11.7-16.9); MCH 32.4 pg (25.7-33.7); MCHC 34.9 g/dl (32.0-35.9); MEAN CELL VOLUME 92.6 fl (80-96); MEAN PLT VOLUME 8.6 fl (7.5-11.1); PLATELET COUNT 124 10^3/uL (134-434); RBC 4.19 M/mm3 (4.00-5.60); WHITE BLOOD COUNT 5.6 K/mm3 (4.0-10.0)
[2022-10-09 10:37] LABS: POTASSIUM 4.4 mmol/L (3.5-5.1)
[2022-10-09 10:40] LABS: BLOOD UREA NITROGEN 26.5 mg/dL (7-18); CALCIUM 9.1 mg/dL (8.5-10.1)
[2022-10-09] MEDS: LIDOCAINE 5% TOPICAL PATCH TP SCH (11:11)
[2022-10-09] MEDS: FUROSEMIDE 40 MG/4 ML INJECTABLE VIAL IVPUSH SCH (11:12)
[2022-10-09] MEDS: buPROPion HCL 100 MG TABLET PO SCH ×2 (11:13→23:43)
[2022-10-09] MEDS: SPIRONOLACTONE 25 MG TABLET PO SCH (11:13)
[2022-10-09] MEDS: amLODIPine BESYLATE 10 MG TABLET (FP) PO SCH (11:13)
[2022-10-09] MEDS: CARVEDILOL 12.5 MG TABLET (FP) PO SCH ×2 (11:13→22:49)
[2022-10-09] MEDS: POLYETHYLENE GLYCOL (HEALTHYLAX) 3350 17 GM PACKET PO SCH ×3 (11:14→22:48)
[2022-10-09] MEDS: PANTOPRAZOLE 40 MG TABLET PO SCH (11:28)
[2022-10-09] MEDS: APIXABAN 5 MG TABLET PO SCH ×2 (11:28→22:49)
[2022-10-09] MEDS: RANOLAZINE E.R. 500 MG TABLET (FP) PO SCH ×2 (11:29→22:49)
[2022-10-09] MEDS ORDERED: INSULIN (NOVOLOG) ASPART 100 UNITS/ML 10ML VIAL ONE (12:26)
[2022-10-09] MEDS: INSULIN (LEVEMIR) 100 UNITS/ML UNITS SQ SCH (22:48)
[2022-10-09] MEDS: ATORVASTATIN CA 80 MG TABLET (FP) PO SCH (22:49)
[2022-10-10] MEDS: LIDOCAINE PATCH REMOVAL MC SCH (00:41)
[2022-10-10] MEDS ORDERED: traMADol HCL 50 MG TABLET PO ONE (01:05)
[2022-10-10] MEDS: AZTREONAM 1 GM in DEXTROSE 5%-WATER - 50 ML IVPB SCH ×2 (01:30→09:55)
[2022-10-10] MEDS: POLYETHYLENE GLYCOL (HEALTHYLAX) 3350 17 GM PACKET PO SCH ×2 (06:02→14:03)
[2022-10-10] MEDS: RIFAXIMIN 550 MG TABLET PO SCH (06:02)
[2022-10-10] MEDS: PREGABALIN 100 MG CAPSULE PO SCH ×2 (06:02→14:03)
[2022-10-10] MEDS: INSULIN SLIDING SCALE (NOVOLOG) 1 VIAL SQ SCH ×2 (06:16→12:21)
[2022-10-10 09:39] VITALS: RESP 16
[2022-10-10] MEDS ORDERED: AZTREONAM 1 GM VIAL (RESTRICTED TO ID) ONE (09:50)
[2022-10-10] MEDS: PANTOPRAZOLE 40 MG TABLET PO SCH (09:53)
[2022-10-10] MEDS: ACETAMINOPHEN 325 MG TABLET (FP) PO PRN (09:53)
[2022-10-10] MEDS: amLODIPine BESYLATE 10 MG TABLET (FP) PO SCH (09:53)
[2022-10-10] MEDS: SPIRONOLACTONE 25 MG TABLET PO SCH (09:53)
[2022-10-10] MEDS: TAMSULOSIN HCL 0.4 MG CAP PO SCH (09:54)
[2022-10-10] MEDS: FUROSEMIDE 40 MG/4 ML INJECTABLE VIAL IVPUSH SCH (09:54)
[2022-10-10] MEDS: CARVEDILOL 12.5 MG TABLET (FP) PO SCH (09:54)
[2022-10-10] MEDS: RANOLAZINE E.R. 500 MG TABLET (FP) PO SCH (09:54)
[2022-10-10] MEDS: APIXABAN 5 MG TABLET PO SCH (09:54)
[2022-10-10] MEDS: LIPASE/PROTEASE/AMYLASE 36,000 UNIT CAPSULE PO SCH ×2 (09:55→12:20)
[2022-10-10] MEDS: buPROPion HCL 100 MG TABLET PO SCH (09:56)
[2022-10-10] MEDS: LIDOCAINE 5% TOPICAL PATCH TP SCH (10:08)
[2022-10-10] MEDS ORDERED: INSULIN (NOVOLOG) ASPART 100 UNITS/ML 10ML VIAL ONE (12:18)
[2022-10-10] MEDS ORDERED: AMMONIUM LACTATE 12% LOTION 225 GM BOTTLE TP PRN (15:00)
[2022-10-10 15:44] VITALS: BP 140/75; PULSE 63; TEMP 97.8
== END 2022-10-10 15:54 ==
LOC: JER 06:31 → JERBED 12:01 → J6S 14:08
PROVIDERS: ADMIT Family Medicine; ATTEND Family Medicine
PROC: 02HV33Z Insertion of Infusion Device into Superior Vena Cava, Percutaneous Approach (ICD-10-PCS; principal; 2022-10-07)
PROC: B518ZZA Fluoroscopy of Superior Vena Cava, Guidance (ICD-10-PCS; 2022-10-07)
PROC: 3E03329 Introduction of Other Anti-infective into Peripheral Vein, Percutaneous Approach (ICD-10-PCS; 2022-10-07)
PROC: 3E033NZ Introduction of Analgesics, Hypnotics, Sedatives into Peripheral Vein, Percutaneous Approach (ICD-10-PCS; 2022-10-07)
PROC: 3E033GC Introduction of Other Therapeutic Substance into Peripheral Vein, Percutaneous Approach (ICD-10-PCS; 2022-10-07)
PROC: 3E013VG Introduction of Insulin into Subcutaneous Tissue, Percutaneous Approach (ICD-10-PCS; 2022-10-07)
DX: L03.115 Cellulitis of right lower limb (principal); K59.00 Constipation, unspecified; G89.29 Other chronic pain; I48.91 Unspecified atrial fibrillation; I49.3 Ventricular premature depolarization; E11.9 Type 2 diabetes mellitus without complications; I25.10 Atherosclerotic heart disease of native coronary artery without angina pectoris; I10 Essential (primary) hypertension; E03.9 Hypothyroidism, unspecified; E78.00 Pure hypercholesterolemia, unspecified; I11.0 Hypertensive heart disease with heart failure; I50.9 Heart failure, unspecified; J44.9 Chronic obstructive pulmonary disease, unspecified; Z88.0 Allergy status to penicillin; E66.8 Other obesity; Z68.36 Body mass index [BMI] 36.0-36.9, adult
CPT/HCPCS: 0241U-QW; 36415; 36569; 36573; 71045-TC-FY; 73590-TC-RT-FY; 73610-TC-RT-FY; 73630-TC-RT-FY; 77001-TC-FY; 80048; 80053; 82272; 82962; 83735; 83880; 84100; 84484; 85025; 85027; 85610; 85730; 93005; 93010; 93971-TC; 96365; 96367; 96368; 96372; 96375; 96376; 97116-GP; 97162-GP; 99285-25; C1751; C9803-CS; G0378; U0003; U0005

== ENCOUNTER 2022-11-07 15:20 | Inpatient (IN) | payer OTHER ==
[2022-11-07 15:32] VITALS: RESP 18; BMI 36.6
[2022-11-07] MEDS ORDERED: VANCOMYCIN 1 GM in D5W (PRE-DOCKED) 1,000 MG/250 ML (RESTRICTED TO ID ONLY IVPB ONE ×2 (17:45→19:03)
[2022-11-07] MEDS ORDERED: MAG HYDROX/AL HYDROX/SIMETH -MYLANTA- ORAL SUSPENSION PO ONE (17:45)
[2022-11-07] MEDS ORDERED: FAMOTIDINE 20 MG/50 ML IVPB 20 MG/50 ML MG IVPB ONE (17:45)
[2022-11-07] MEDS ORDERED: ACETAMINOPHEN 1000 MG/100 ML BAG IVPB ONE (17:45)
[2022-11-07] MEDS ORDERED: AZTREONAM 2 GM in DEXTROSE 5%-WATER 100 ML IVPB ONE (17:47)
[2022-11-07] MEDS ORDERED: AZTREONAM 1 GM in DEXTROSE 5%-WATER 100 ML IVPB ONE (17:49)
[2022-11-07] MEDS ORDERED: ACETAMINOPHEN INJECTION 100 ML IVPB ONE (18:24)
[2022-11-07] MEDS ORDERED: FAMOTIDINE 10 MG/ML VIAL IVPB ONE (18:24)
[2022-11-07] MEDS ORDERED: AZTREONAM 1 GM VIAL (RESTRICTED TO ID) ONE (18:24)
[2022-11-07] MEDS ORDERED: MAG HYDROX/AL HYDROX/SIMETH 30 ML UNIT-DOSE CUP ONE (18:45)
[2022-11-07 18:49] LABS: BASO % 0.4 % (0-2.0); EOS % 5.8 % (0-4.5); HEMATOCRIT 38.4 % (35.4-49); HEMOGLOBIN 13.3 GM/dL (11.7-16.9); LYMPH % 27.1 % (8-40); MCH 31.1 pg (25.7-33.7); MCHC 34.5 g/dl (32.0-35.9); MEAN CELL VOLUME 90.1 fl (80-96); MEAN PLT VOLUME 8.5 fl (7.5-11.1); MONO % 11.8 % (3.8-10.2); NEUT % 54.9 % (42.8-82.8); PLATELET COUNT 139 10^3/uL (134-434); RBC 4.26 M/mm3 (4.00-5.60); RDW 13.3 % (11.9-15.9); WHITE BLOOD COUNT 7.1 K/mm3 (4.0-10.0)
[2022-11-07 18:55] LABS: INR 1.14 (0.83-1.09); PROTHROMBIN TIME (PATIENT) 13.2 SEC (9.7-13.0)
[2022-11-07 18:58] LABS: ACTIVATED PTT 37.1 SECONDS (25.2-36.5)
[2022-11-07 19:06] LABS: POTASSIUM 4.1 mmol/L (3.5-5.1)
[2022-11-07 19:08] LABS: ALBUMIN 3.3 g/dl (3.4-5.0); BLOOD UREA NITROGEN 22.2 mg/dL (7-18); CALCIUM 9.3 mg/dL (8.5-10.1); MAGNESIUM 2.3 mg/dL (1.8-2.4)
[2022-11-07 19:13] LABS: BILIRUBIN,TOTAL 0.4 mg/dL (0.2-1); TOT PROT 6.6 g/dl (6.4-8.2)
[2022-11-07 19:15] LABS: N-TERMINAL BNP 90.1 pg/ml (5-125)
[2022-11-07] MEDS ORDERED: VANCOMYCIN/WATER FOR INJ (PEG) 1,000 MG/200 ML BAG IVPB ONE (19:36)
[2022-11-07] MEDS ORDERED: DOCUSATE SODIUM 100 MG CAPSULE (FP) PO PRN (20:24)
[2022-11-07] MEDS ORDERED: ACETAMINOPHEN 1000 MG/100 ML BAG IVPB PRN (20:32)
[2022-11-07] MEDS: INSULIN SLIDING SCALE (NOVOLOG) 1 VIAL SQ SCH (23:03)
[2022-11-07] MEDS: CARVEDILOL 12.5 MG TABLET (FP) PO SCH (23:03)
[2022-11-08] MEDS: RANOLAZINE E.R. 500 MG TABLET (FP) PO SCH ×3 (01:18→21:39)
[2022-11-08] MEDS: AZTREONAM 1 GM in DEXTROSE 5%-WATER - 50 ML IVPB SCH ×2 (01:19→10:50)
[2022-11-08] MEDS ORDERED: AZTREONAM 1 GM in DEXTROSE 5%-WATER - 50 ML IVPB SCH (02:00)
[2022-11-08] MEDS ORDERED: POLYETHYLENE GLYCOL (HEALTHYLAX) 3350 17 GM PACKET PO PRN (03:43)
[2022-11-08] MEDS: INSULIN SLIDING SCALE (NOVOLOG) 1 VIAL SQ SCH ×4 (06:03→21:43)
[2022-11-08] MEDS ORDERED: VANCOMYCIN PREMIX 1.5 GM 1,500 MG/300 ML BAG IVPB SCH (08:00)
[2022-11-08] MEDS ORDERED: VANCOMYCIN HCL 1,500 MG in DEXTROSE 5%-WATER - 250 ML IVPB SCH (08:00)
[2022-11-08] MEDS: CARVEDILOL 12.5 MG TABLET (FP) PO SCH ×2 (09:30→21:39)
[2022-11-08] MEDS: DOCUSATE SODIUM 100 MG CAPSULE (FP) PO SCH ×2 (09:30→21:40)
[2022-11-08] MEDS: amLODIPine BESYLATE 5 MG TABLET (FP) PO SCH (09:30)
[2022-11-08] MEDS: TAMSULOSIN HCL 0.4 MG CAP PO SCH (09:30)
[2022-11-08] MEDS: FUROSEMIDE 40 MG TABLET (FP) PO SCH (09:30)
[2022-11-08] MEDS: PANTOPRAZOLE 40 MG TABLET PO SCH (09:30)
[2022-11-08 10:03] LABS: BASO % 0.5 % (0-2.0); HEMATOCRIT 39.6 % (35.4-49); HEMOGLOBIN 13.5 GM/dL (11.7-16.9); LYMPH % 20.8 % (8-40); MCH 31.2 pg (25.7-33.7); MCHC 34.1 g/dl (32.0-35.9); MEAN CELL VOLUME 91.3 fl (80-96); MEAN PLT VOLUME 8.2 fl (7.5-11.1); NEUT % 62.7 % (42.8-82.8); PLATELET COUNT 130 10^3/uL (134-434); RBC 4.34 M/mm3 (4.00-5.60); RDW 13.3 % (11.9-15.9); WHITE BLOOD COUNT 6.2 K/mm3 (4.0-10.0)
[2022-11-08 10:20] LABS: POTASSIUM 3.9 mmol/L (3.5-5.1)
[2022-11-08 10:25] LABS: BLOOD UREA NITROGEN 20.7 mg/dL (7-18); CALCIUM 9.4 mg/dL (8.5-10.1)
[2022-11-08 10:29] LABS: CREATININE 1.1 mg/dL (0.55-1.3); PHOSPHOROUS 3.8 mg/dL (2.5-4.9)
[2022-11-08] MEDS: PRIMIDONE 50 MG TABLET PO SCH (11:37)
[2022-11-08] MEDS: TIOTROPIUM BROMIDE 2.5 MCG (SPIRIVA) RESPIMAT INHALER IH SCH (12:12)
[2022-11-08] MEDS: traMADol HCL 50 MG TABLET PO PRN (17:49)
[2022-11-08] MEDS: CEFAZOLIN SODIUM 2 GM in DEXTROSE 5%-WATER 100 ML IVPB SCH (18:39)
[2022-11-08] MEDS ORDERED: diphenhydrAMINE HCL 25 MG CAPSULE (FP) PO ONE (23:43)
[2022-11-08] MEDS: ACETAMINOPHEN 325 MG TABLET (FP) PO PRN (23:57)
[2022-11-09] MEDS: CEFAZOLIN SODIUM 2 GM in DEXTROSE 5%-WATER 100 ML IVPB SCH ×3 (02:15→17:41)
[2022-11-09] MEDS: INSULIN SLIDING SCALE (NOVOLOG) 1 VIAL SQ SCH ×4 (06:05→21:33)
[2022-11-09] MEDS ORDERED: INSULIN (NOVOLOG) ASPART 100 UNITS/ML 10ML VIAL ONE (06:42)
[2022-11-09] MEDS ORDERED: INSULIN (LEVEMIR) 100 UNITS/ML UNITS SQ ONE (06:42)
[2022-11-09 09:19] LABS: POTASSIUM 3.8 mmol/L (3.5-5.1)
[2022-11-09 09:23] LABS: ALBUMIN 3.1 g/dl (3.4-5.0); BLOOD UREA NITROGEN 19.4 mg/dL (7-18)
[2022-11-09 09:25] LABS: CREATININE 1.1 mg/dL (0.55-1.3)
[2022-11-09 09:27] LABS: BILIRUBIN,TOTAL 0.5 mg/dL (0.2-1); TOT PROT 6.1 g/dl (6.4-8.2)
[2022-11-09] MEDS: PANTOPRAZOLE 40 MG TABLET PO SCH (10:20)
[2022-11-09] MEDS: TAMSULOSIN HCL 0.4 MG CAP PO SCH (10:20)
[2022-11-09] MEDS: RANOLAZINE E.R. 500 MG TABLET (FP) PO SCH ×2 (10:20→21:28)
[2022-11-09] MEDS: FUROSEMIDE 40 MG TABLET (FP) PO SCH (10:20)
[2022-11-09] MEDS: DOCUSATE SODIUM 100 MG CAPSULE (FP) PO SCH ×2 (10:20→21:28)
[2022-11-09] MEDS: CARVEDILOL 12.5 MG TABLET (FP) PO SCH ×2 (10:20→21:28)
[2022-11-09] MEDS: traMADol HCL 50 MG TABLET PO PRN (10:21)
[2022-11-09] MEDS: PRIMIDONE 50 MG TABLET PO SCH (10:21)
[2022-11-09] MEDS: amLODIPine BESYLATE 5 MG TABLET (FP) PO SCH (10:21)
[2022-11-09] MEDS: TIOTROPIUM BROMIDE 2.5 MCG (SPIRIVA) RESPIMAT INHALER IH SCH (10:22)
[2022-11-09] MEDS ORDERED: MAG HYDROX/AL HYDROX/SIMETH 30 ML UNIT-DOSE CUP PO PRN (19:36)
[2022-11-09] MEDS ORDERED: MINERAL OIL ENEMA 133 ML ENEMA RC PRN (19:36)
[2022-11-09] MEDS: ACETAMINOPHEN 325 MG TABLET (FP) PO PRN (20:18)
[2022-11-09] MEDS: ONDANSETRON 4 MG/2 ML VIAL IVPUSH PRN (20:18)
[2022-11-09] MEDS: POLYETHYLENE GLYCOL (HEALTHYLAX) 3350 17 GM PACKET PO SCH (21:28)
[2022-11-10] MEDS ORDERED: diphenhydrAMINE HCL 25 MG CAPSULE (FP) PO ONE (01:48)
[2022-11-10] MEDS: CEFAZOLIN SODIUM 2 GM in DEXTROSE 5%-WATER 100 ML IVPB SCH ×2 (02:47→11:19)
[2022-11-10] MEDS: INSULIN SLIDING SCALE (NOVOLOG) 1 VIAL SQ SCH ×2 (06:27→13:21)
[2022-11-10] MEDS ORDERED: INSULIN (LEVEMIR) 100 UNITS/ML UNITS SQ ONE (06:31)
[2022-11-10] MEDS ORDERED: INSULIN (NOVOLOG) ASPART 100 UNITS/ML 10ML VIAL ONE (06:31)
[2022-11-10] MEDS: ACETAMINOPHEN 325 MG TABLET (FP) PO PRN ×2 (07:05→13:20)
[2022-11-10] MEDS: traMADol HCL 50 MG TABLET PO PRN ×2 (07:06→13:20)
[2022-11-10] MEDS: ONDANSETRON 4 MG/2 ML VIAL IVPUSH PRN (08:57)
[2022-11-10] MEDS: PRIMIDONE 50 MG TABLET PO SCH (11:20)
[2022-11-10] MEDS: TAMSULOSIN HCL 0.4 MG CAP PO SCH (11:21)
[2022-11-10] MEDS: amLODIPine BESYLATE 5 MG TABLET (FP) PO SCH (11:21)
[2022-11-10] MEDS: CARVEDILOL 12.5 MG TABLET (FP) PO SCH (11:21)
[2022-11-10] MEDS: RANOLAZINE E.R. 500 MG TABLET (FP) PO SCH (11:21)
[2022-11-10] MEDS: FUROSEMIDE 40 MG TABLET (FP) PO SCH (11:21)
[2022-11-10] MEDS: DOCUSATE SODIUM 100 MG CAPSULE (FP) PO SCH (11:21)
[2022-11-10] MEDS: POLYETHYLENE GLYCOL (HEALTHYLAX) 3350 17 GM PACKET PO SCH (11:22)
[2022-11-10] MEDS: PANTOPRAZOLE 40 MG TABLET PO SCH (11:22)
[2022-11-10] MEDS ORDERED: buPROPion HCL 100 MG TABLET PO SCH (11:30)
[2022-11-10] MEDS: TIOTROPIUM BROMIDE 2.5 MCG (SPIRIVA) RESPIMAT INHALER IH SCH (13:21)
[2022-11-10 15:07] VITALS: BP 140/77; PULSE 65; TEMP 97.8
[2022-11-10] MEDS ORDERED: SIMETHICONE 80 MG TAB.CHEW (FP) PO SCH (18:00)
[2022-11-10] MEDS ORDERED: RIFAXIMIN 550 MG TABLET PO SCH (22:00)
== END 2022-11-10 16:56 | disposition home health service (06) | DRG 603 ==
LOC: JER 15:20 → JERBED 20:09 → J6S 22:33
PROVIDERS: ADMIT Internal Medicine; ATTEND Family Medicine
DX: L03.116 Cellulitis of left lower limb (principal); A52.16 Charcot's arthropathy (tabetic); I13.0 Hypertensive heart and chronic kidney disease with heart failure and stage 1 through stage 4 chronic kidney disease, or unspecified chronic kidney disease; N18.9 Chronic kidney disease, unspecified; G20 Parkinson's disease; E03.9 Hypothyroidism, unspecified; F32.A Depression, unspecified; I48.0 Paroxysmal atrial fibrillation; I25.119 Atherosclerotic heart disease of native coronary artery with unspecified angina pectoris; E78.5 Hyperlipidemia, unspecified; K21.9 Gastro-esophageal reflux disease without esophagitis; E78.00 Pure hypercholesterolemia, unspecified; M50.20 Other cervical disc displacement, unspecified cervical region; I44.0 Atrioventricular block, first degree; M48.02 Spinal stenosis, cervical region; M50.10 Cervical disc disorder with radiculopathy, unspecified cervical region; K58.9 Irritable bowel syndrome, unspecified; K59.09 Other constipation; Z68.33 Body mass index [BMI] 33.0-33.9, adult; E66.9 Obesity, unspecified; E11.65 Type 2 diabetes mellitus with hyperglycemia; J44.9 Chronic obstructive pulmonary disease, unspecified
CPT/HCPCS: 0241U-QW; 36415; 73630-TC-LT; 80048; 80053; 82962; 83036; 83735; 83880; 84100; 84443; 85025; 85610; 85730; 93005; 93010; 93925-TC; 99285-25

== ENCOUNTER 2022-12-09 05:01 | Inpatient (IN) | payer OTHER ==
[2022-12-09 06:48] LABS: BASO % 0.7 % (0-2.0); EOS % 4.1 % (0-4.5); HEMOGLOBIN 13.3 GM/dL (11.7-16.9); LYMPH % 23.6 % (8-40); MCH 31.5 pg (25.7-33.7); MCHC 34.1 g/dl (32.0-35.9); MEAN CELL VOLUME 92.3 fl (80-96); MEAN PLT VOLUME 9.3 fl (7.5-11.1); MONO % 9.3 % (3.8-10.2); NEUT % 62.3 % (42.8-82.8); PLATELET COUNT 146 10^3/uL (134-434); RBC 4.23 M/mm3 (4.00-5.60); RDW 13.3 % (11.9-15.9); WHITE BLOOD COUNT 5.5 K/mm3 (4.0-10.0)
[2022-12-09 06:59] LABS: INR 1.03 (0.83-1.09)
[2022-12-09] MEDS ORDERED: FUROSEMIDE 40 MG/4 ML INJECTABLE VIAL IVPUSH ONE ×2 (06:59→07:18)
[2022-12-09 07:00] LABS: POTASSIUM 3.6 mmol/L (3.5-5.1)
[2022-12-09 07:02] LABS: ACTIVATED PTT 34.3 SECONDS (25.2-36.5); CALCIUM 8.8 mg/dL (8.5-10.1)
[2022-12-09 07:03] LABS: ALBUMIN 3.3 g/dl (3.4-5.0); BLOOD UREA NITROGEN 28.2 mg/dL (7-18); MAGNESIUM 2.2 mg/dL (1.8-2.4)
[2022-12-09 07:06] LABS: CREATININE 1.3 mg/dL (0.55-1.3)
[2022-12-09 07:08] LABS: BILIRUBIN,TOTAL 0.2 mg/dL (0.2-1); TOT PROT 6.7 g/dl (6.4-8.2)
[2022-12-09] MEDS ORDERED: APIXABAN 5 MG TABLET PO ONE (07:22)
[2022-12-09] MEDS ORDERED: FUROSEMIDE 40 MG/4 ML INJECTABLE VIAL ONE (07:36)
[2022-12-09] MEDS ORDERED: APIXABAN 5 MG TABLET ONE (07:36)
[2022-12-09] MEDS: PANTOPRAZOLE 40 MG TABLET PO SCH (10:16)
[2022-12-09] MEDS: POLYETHYLENE GLYCOL (HEALTHYLAX) 3350 17 GM PACKET PO SCH ×2 (10:16→22:21)
[2022-12-09] MEDS: TAMSULOSIN HCL 0.4 MG CAP PO SCH (10:17)
[2022-12-09] MEDS: CARVEDILOL 12.5 MG TABLET (FP) PO SCH ×2 (10:17→22:14)
[2022-12-09] MEDS: RANOLAZINE E.R. 500 MG TABLET (FP) PO SCH ×2 (10:17→22:14)
[2022-12-09] MEDS: INSULIN (LEVEMIR) 100 UNITS/ML UNITS SQ SCH (10:17)
[2022-12-09] MEDS: PRIMIDONE 50 MG TABLET PO SCH (10:18)
[2022-12-09] MEDS: TIOTROPIUM BROMIDE 2.5 MCG (SPIRIVA) RESPIMAT INHALER IH SCH (10:18)
[2022-12-09] MEDS: buPROPion HCL 100 MG TABLET PO SCH ×2 (10:18→22:18)
[2022-12-09] MEDS: DOCUSATE SODIUM 100 MG CAPSULE (FP) PO SCH ×2 (14:40→22:19)
[2022-12-09] MEDS: RIFAXIMIN 550 MG TABLET PO SCH ×2 (14:40→22:14)
[2022-12-09] MEDS: LIPASE/PROTEASE/AMYLASE 36,000 UNIT CAPSULE PO SCH (17:28)
[2022-12-09] MEDS: ALBUTEROL SO4 0.083% IH SOL 2.5 MG/3 ML VIAL.NEB. NEB SCH ×2 (17:48→20:36)
[2022-12-09] MEDS: ACETAMINOPHEN 325 MG TABLET (FP) PO PRN (20:07)
[2022-12-09] MEDS: LACTULOSE 20 GM/30 ML UDC (FOR ORAL USE ONLY) PO SCH (22:15)
[2022-12-09] MEDS ORDERED: diphenhydrAMINE HCL 25 MG CAPSULE (FP) PO ONE (23:06)
[2022-12-10] MEDS: ACETAMINOPHEN 325 MG TABLET (FP) PO PRN ×3 (01:15→20:28)
[2022-12-10] MEDS: DOCUSATE SODIUM 100 MG CAPSULE (FP) PO SCH ×3 (06:19→21:36)
[2022-12-10] MEDS: RIFAXIMIN 550 MG TABLET PO SCH ×3 (06:19→21:52)
[2022-12-10] MEDS: INSULIN (LEVEMIR) 100 UNITS/ML UNITS SQ SCH (06:23)
[2022-12-10 07:11] LABS: BASO % 0.6 % (0-2.0); EOS % 4.6 % (0-4.5); HEMATOCRIT 38.5 % (35.4-49); HEMOGLOBIN 13.1 GM/dL (11.7-16.9); LYMPH % 23.8 % (8-40); MCH 31.1 pg (25.7-33.7); MCHC 33.9 g/dl (32.0-35.9); MEAN CELL VOLUME 91.8 fl (80-96); MEAN PLT VOLUME 8.6 fl (7.5-11.1); MONO % 10.3 % (3.8-10.2); NEUT % 60.7 % (42.8-82.8); PLATELET COUNT 124 10^3/uL (134-434); RDW 13.1 % (11.9-15.9); WHITE BLOOD COUNT 6.1 K/mm3 (4.0-10.0)
[2022-12-10] MEDS: ALBUTEROL SO4 0.083% IH SOL 2.5 MG/3 ML VIAL.NEB. NEB SCH ×3 (07:35→20:19)
[2022-12-10 07:37] LABS: POTASSIUM 3.5 mmol/L (3.5-5.1)
[2022-12-10 07:41] LABS: CALCIUM 9.2 mg/dL (8.5-10.1)
[2022-12-10 07:42] LABS: MAGNESIUM 2.6 mg/dL (1.8-2.4)
[2022-12-10 07:43] LABS: BLOOD UREA NITROGEN 29.9 mg/dL (7-18)
[2022-12-10 07:44] LABS: ALBUMIN 3.3 g/dl (3.4-5.0)
[2022-12-10 07:45] LABS: CREATININE 1.1 mg/dL (0.55-1.3); TOT PROT 6.6 g/dl (6.4-8.2)
[2022-12-10 07:47] LABS: PHOSPHOROUS 3.6 mg/dL (2.5-4.9)
[2022-12-10 07:48] LABS: BILIRUBIN,TOTAL 0.3 mg/dL (0.2-1)
[2022-12-10] MEDS: LIPASE/PROTEASE/AMYLASE 36,000 UNIT CAPSULE PO SCH ×3 (08:23→17:09)
[2022-12-10] MEDS: TAMSULOSIN HCL 0.4 MG CAP PO SCH (08:23)
[2022-12-10] MEDS: PANTOPRAZOLE 40 MG TABLET PO SCH (10:24)
[2022-12-10] MEDS: PRIMIDONE 50 MG TABLET PO SCH (10:24)
[2022-12-10] MEDS: RANOLAZINE E.R. 500 MG TABLET (FP) PO SCH ×2 (10:24→21:36)
[2022-12-10] MEDS: POLYETHYLENE GLYCOL (HEALTHYLAX) 3350 17 GM PACKET PO SCH ×2 (10:25→21:36)
[2022-12-10] MEDS: FUROSEMIDE 40 MG/4 ML INJECTABLE VIAL IVPUSH SCH (10:25)
[2022-12-10] MEDS: CARVEDILOL 12.5 MG TABLET (FP) PO SCH ×2 (10:25→21:36)
[2022-12-10] MEDS: buPROPion HCL 100 MG TABLET PO SCH (10:26)
[2022-12-10] MEDS: TIOTROPIUM BROMIDE 2.5 MCG (SPIRIVA) RESPIMAT INHALER IH SCH (10:26)
[2022-12-10] MEDS: LACTULOSE 20 GM/30 ML UDC (FOR ORAL USE ONLY) PO SCH ×3 (10:32→21:36)
[2022-12-10] MEDS: LIDOCAINE 5% TOPICAL PATCH TP SCH (21:35)
[2022-12-10] MEDS: APIXABAN 5 MG TABLET PO SCH (21:36)
[2022-12-10] MEDS: LIDOCAINE PATCH REMOVAL MC SCH ×2 (21:52→22:57)
[2022-12-10] MEDS ORDERED: diphenhydrAMINE HCL 25 MG CAPSULE (FP) PO ONE (23:14)
[2022-12-11] MEDS ORDERED: ACETAMINOPHEN 1000 MG/100 ML BAG IVPB ONE (00:47)
[2022-12-11] MEDS ORDERED: diphenhydrAMINE HCL 25 MG CAPSULE (FP) PO ONE ×2 (03:19→20:39)
[2022-12-11] MEDS: DOCUSATE SODIUM 100 MG CAPSULE (FP) PO SCH ×3 (05:31→22:00)
[2022-12-11] MEDS: LACTULOSE 20 GM/30 ML UDC (FOR ORAL USE ONLY) PO SCH ×4 (05:32→22:08)
[2022-12-11] MEDS: RIFAXIMIN 550 MG TABLET PO SCH ×3 (05:32→22:00)
[2022-12-11] MEDS: INSULIN (LEVEMIR) 100 UNITS/ML UNITS SQ SCH (06:30)
[2022-12-11] MEDS: ALBUTEROL SO4 0.083% IH SOL 2.5 MG/3 ML VIAL.NEB. NEB SCH ×3 (07:30→20:24)
[2022-12-11] MEDS: LIPASE/PROTEASE/AMYLASE 36,000 UNIT CAPSULE PO SCH ×3 (07:45→17:16)
[2022-12-11] MEDS: TAMSULOSIN HCL 0.4 MG CAP PO SCH (07:45)
[2022-12-11] MEDS: POLYETHYLENE GLYCOL (HEALTHYLAX) 3350 17 GM PACKET PO SCH ×2 (09:27→22:02)
[2022-12-11] MEDS: FUROSEMIDE 40 MG/4 ML INJECTABLE VIAL IVPUSH SCH (09:27)
[2022-12-11] MEDS: RANOLAZINE E.R. 500 MG TABLET (FP) PO SCH ×2 (09:27→22:00)
[2022-12-11] MEDS: APIXABAN 5 MG TABLET PO SCH ×2 (09:27→22:00)
[2022-12-11] MEDS: CARVEDILOL 12.5 MG TABLET (FP) PO SCH ×2 (09:28→22:00)
[2022-12-11] MEDS: buPROPion HCL 100 MG TABLET PO SCH (09:28)
[2022-12-11] MEDS: PRIMIDONE 50 MG TABLET PO SCH (09:28)
[2022-12-11] MEDS: PANTOPRAZOLE 40 MG TABLET PO SCH (09:28)
[2022-12-11] MEDS: TIOTROPIUM BROMIDE 2.5 MCG (SPIRIVA) RESPIMAT INHALER IH SCH (09:29)
[2022-12-11] MEDS ORDERED: POLYETHYLENE GLYCOL 3350 255 GM BTL PO ONE (10:00)
[2022-12-11] MEDS ORDERED: MINERAL OIL ENEMA 133 ML ENEMA RC ONE (12:00)
[2022-12-11] MEDS: PATIENT'S OWN MEDICATION (NON-FORMULARY) (Empagliflozin [Jardiance] 10 MG Tablet) PO SCH (19:31)
[2022-12-11] MEDS: LIDOCAINE 5% TOPICAL PATCH TP SCH (22:01)
[2022-12-11] MEDS: LIDOCAINE PATCH REMOVAL MC SCH (22:02)
[2022-12-12] MEDS: ACETAMINOPHEN 325 MG TABLET (FP) PO PRN (03:34)
[2022-12-12] MEDS: RIFAXIMIN 550 MG TABLET PO SCH ×3 (06:48→22:35)
[2022-12-12] MEDS: DOCUSATE SODIUM 100 MG CAPSULE (FP) PO SCH ×3 (06:48→22:35)
[2022-12-12] MEDS: LACTULOSE 20 GM/30 ML UDC (FOR ORAL USE ONLY) PO SCH ×4 (06:48→22:42)
[2022-12-12] MEDS: ALBUTEROL SO4 0.083% IH SOL 2.5 MG/3 ML VIAL.NEB. NEB SCH ×3 (07:30→20:14)
[2022-12-12] MEDS ORDERED: INSULIN (NOVOLOG) ASPART 100 UNITS/ML 10ML VIAL ONE (08:00)
[2022-12-12] MEDS ORDERED: SODIUM PHOSPHATE/NA BIPHOS 133 ML ENEMA RC ONE (08:15)
[2022-12-12] MEDS: INSULIN (LEVEMIR) 100 UNITS/ML UNITS SQ SCH (08:21)
[2022-12-12] MEDS ORDERED: INSULIN (LEVEMIR) 100 UNITS/ML UNITS SQ ONE (08:22)
[2022-12-12] MEDS: FUROSEMIDE 40 MG/4 ML INJECTABLE VIAL IVPUSH SCH (09:29)
[2022-12-12] MEDS: RANOLAZINE E.R. 500 MG TABLET (FP) PO SCH ×2 (09:30→22:35)
[2022-12-12] MEDS: APIXABAN 5 MG TABLET PO SCH ×2 (09:30→22:35)
[2022-12-12] MEDS: TAMSULOSIN HCL 0.4 MG CAP PO SCH (09:30)
[2022-12-12] MEDS: CARVEDILOL 12.5 MG TABLET (FP) PO SCH ×2 (09:30→22:35)
[2022-12-12] MEDS: PANTOPRAZOLE 40 MG TABLET PO SCH (09:30)
[2022-12-12] MEDS: PRIMIDONE 50 MG TABLET PO SCH (09:31)
[2022-12-12] MEDS: LIPASE/PROTEASE/AMYLASE 36,000 UNIT CAPSULE PO SCH ×3 (09:31→17:14)
[2022-12-12] MEDS: POLYETHYLENE GLYCOL (HEALTHYLAX) 3350 17 GM PACKET PO SCH ×3 (09:31→22:42)
[2022-12-12] MEDS: TIOTROPIUM BROMIDE 2.5 MCG (SPIRIVA) RESPIMAT INHALER IH SCH (09:32)
[2022-12-12] MEDS: buPROPion HCL 100 MG TABLET PO SCH (09:42)
[2022-12-12] MEDS: TRIMETHOBENZAMIDE HCL 200MG/2ML INJ IM PRN (09:45)
[2022-12-12] MEDS: LIDOCAINE PATCH REMOVAL MC SCH (22:36)
[2022-12-12] MEDS: LIDOCAINE 5% TOPICAL PATCH TP SCH (22:36)
[2022-12-12] MEDS ORDERED: diphenhydrAMINE HCL 25 MG CAPSULE (FP) PO ONE (22:45)
[2022-12-13] MEDS: INSULIN (LEVEMIR) 100 UNITS/ML UNITS SQ SCH (05:59)
[2022-12-13] MEDS: RIFAXIMIN 550 MG TABLET PO SCH ×3 (06:00→21:58)
[2022-12-13] MEDS: LACTULOSE 20 GM/30 ML UDC (FOR ORAL USE ONLY) PO SCH ×4 (06:00→21:56)
[2022-12-13] MEDS: DOCUSATE SODIUM 100 MG CAPSULE (FP) PO SCH ×3 (06:00→21:58)
[2022-12-13] MEDS: ALBUTEROL SO4 0.083% IH SOL 2.5 MG/3 ML VIAL.NEB. NEB SCH ×3 (08:45→20:24)
[2022-12-13 09:17] LABS: HEMATOCRIT 41.9 % (35.4-49); HEMOGLOBIN 13.8 GM/dL (11.7-16.9); MCH 30.3 pg (25.7-33.7); MCHC 32.8 g/dl (32.0-35.9); MEAN CELL VOLUME 92.4 fl (80-96); MEAN PLT VOLUME 9.2 fl (7.5-11.1); PLATELET COUNT 134 10^3/uL (134-434); RBC 4.53 M/mm3 (4.00-5.60); RDW 13.5 % (11.9-15.9); WHITE BLOOD COUNT 6.4 K/mm3 (4.0-10.0)
[2022-12-13 09:32] LABS: POTASSIUM 3.7 mmol/L (3.5-5.1)
[2022-12-13 09:37] LABS: BLOOD UREA NITROGEN 30.9 mg/dL (7-18); CALCIUM 9.5 mg/dL (8.5-10.1)
[2022-12-13 09:41] LABS: CREATININE 1.3 mg/dL (0.55-1.3)
[2022-12-13] MEDS: APIXABAN 5 MG TABLET PO SCH ×3 (10:05→21:58)
[2022-12-13] MEDS: FUROSEMIDE 40 MG/4 ML INJECTABLE VIAL IVPUSH SCH (10:06)
[2022-12-13] MEDS: CARVEDILOL 12.5 MG TABLET (FP) PO SCH ×2 (10:06→21:59)
[2022-12-13] MEDS: PRIMIDONE 50 MG TABLET PO SCH ×2 (10:06→21:59)
[2022-12-13] MEDS: PANTOPRAZOLE 40 MG TABLET PO SCH (10:06)
[2022-12-13] MEDS: TAMSULOSIN HCL 0.4 MG CAP PO SCH (10:06)
[2022-12-13] MEDS: POLYETHYLENE GLYCOL (HEALTHYLAX) 3350 17 GM PACKET PO SCH ×2 (10:07→21:57)
[2022-12-13] MEDS: RANOLAZINE E.R. 500 MG TABLET (FP) PO SCH ×2 (10:10→21:58)
[2022-12-13] MEDS: TRIMETHOBENZAMIDE HCL 200MG/2ML INJ IM PRN (10:11)
[2022-12-13] MEDS: TIOTROPIUM BROMIDE 2.5 MCG (SPIRIVA) RESPIMAT INHALER IH SCH (11:19)
[2022-12-13] MEDS: LIPASE/PROTEASE/AMYLASE 36,000 UNIT CAPSULE PO SCH ×3 (11:20→17:56)
[2022-12-13] MEDS: buPROPion HCL 100 MG TABLET PO SCH (11:20)
[2022-12-13] MEDS ORDERED: INSULIN (NOVOLOG) ASPART 100 UNITS/ML 10ML VIAL ONE (12:21)
[2022-12-13] MEDS: INSULIN SLIDING SCALE (NOVOLOG) 1 VIAL SQ SCH (17:55)
[2022-12-13] MEDS: ACETAMINOPHEN 325 MG TABLET (FP) PO PRN (21:55)
[2022-12-13] MEDS: LIDOCAINE PATCH REMOVAL MC SCH (21:59)
[2022-12-13] MEDS: LIDOCAINE 5% TOPICAL PATCH TP SCH (21:59)
[2022-12-13] MEDS ORDERED: diphenhydrAMINE HCL 25 MG CAPSULE (FP) PO ONE (23:30)
[2022-12-14] MEDS: INSULIN (LEVEMIR) 100 UNITS/ML UNITS SQ SCH (06:32)
[2022-12-14] MEDS: LACTULOSE 20 GM/30 ML UDC (FOR ORAL USE ONLY) PO SCH ×2 (06:33→15:01)
[2022-12-14] MEDS: DOCUSATE SODIUM 100 MG CAPSULE (FP) PO SCH ×2 (06:33→15:01)
[2022-12-14] MEDS: RIFAXIMIN 550 MG TABLET PO SCH ×3 (06:33→21:24)
[2022-12-14] MEDS: INSULIN SLIDING SCALE (NOVOLOG) 1 VIAL SQ SCH ×3 (06:34→17:11)
[2022-12-14] MEDS: ALBUTEROL SO4 0.083% IH SOL 2.5 MG/3 ML VIAL.NEB. NEB SCH ×3 (08:45→20:05)
[2022-12-14] MEDS: POLYETHYLENE GLYCOL (HEALTHYLAX) 3350 17 GM PACKET PO SCH ×2 (10:29→21:24)
[2022-12-14] MEDS: FUROSEMIDE 40 MG/4 ML INJECTABLE VIAL IVPUSH SCH (10:30)
[2022-12-14] MEDS: TAMSULOSIN HCL 0.4 MG CAP PO SCH (10:30)
[2022-12-14] MEDS: RANOLAZINE E.R. 500 MG TABLET (FP) PO SCH ×2 (10:30→21:24)
[2022-12-14] MEDS: CARVEDILOL 12.5 MG TABLET (FP) PO SCH ×2 (10:30→21:24)
[2022-12-14] MEDS: PANTOPRAZOLE 40 MG TABLET PO SCH (10:30)
[2022-12-14] MEDS: APIXABAN 5 MG TABLET PO SCH ×2 (10:30→21:24)
[2022-12-14] MEDS: LIPASE/PROTEASE/AMYLASE 36,000 UNIT CAPSULE PO SCH ×3 (10:31→17:10)
[2022-12-14] MEDS: buPROPion HCL 100 MG TABLET PO SCH (10:32)
[2022-12-14] MEDS: PRIMIDONE 50 MG TABLET PO SCH ×2 (10:32→21:24)
[2022-12-14] MEDS: TIOTROPIUM BROMIDE 2.5 MCG (SPIRIVA) RESPIMAT INHALER IH SCH (10:33)
[2022-12-14] MEDS: TRIMETHOBENZAMIDE HCL 200MG/2ML INJ IM PRN (10:42)
[2022-12-14] MEDS: LIDOCAINE 5% TOPICAL PATCH TP SCH (21:28)
[2022-12-14] MEDS: LIDOCAINE PATCH REMOVAL MC SCH (21:28)
[2022-12-15] MEDS: INSULIN (LEVEMIR) 100 UNITS/ML UNITS SQ SCH (06:29)
[2022-12-15] MEDS: RIFAXIMIN 550 MG TABLET PO SCH ×3 (06:29→21:04)
[2022-12-15] MEDS: INSULIN SLIDING SCALE (NOVOLOG) 1 VIAL SQ SCH ×4 (06:34→17:31)
[2022-12-15] MEDS: ALBUTEROL SO4 0.083% IH SOL 2.5 MG/3 ML VIAL.NEB. NEB SCH ×3 (08:50→20:25)
[2022-12-15] MEDS: LIPASE/PROTEASE/AMYLASE 36,000 UNIT CAPSULE PO SCH ×3 (10:20→17:32)
[2022-12-15] MEDS: PRIMIDONE 50 MG TABLET PO SCH ×2 (10:20→21:04)
[2022-12-15] MEDS: buPROPion HCL 100 MG TABLET PO SCH (10:20)
[2022-12-15 10:21] LABS: HEMATOCRIT 39.1 % (35.4-49); MCH 30.8 pg (25.7-33.7); MCHC 33.3 g/dl (32.0-35.9); MEAN CELL VOLUME 92.4 fl (80-96); MEAN PLT VOLUME 8.9 fl (7.5-11.1); PLATELET COUNT 128 10^3/uL (134-434); RBC 4.23 M/mm3 (4.00-5.60); RDW 13.7 % (11.9-15.9); WHITE BLOOD COUNT 6.6 K/mm3 (4.0-10.0)
[2022-12-15] MEDS: PANTOPRAZOLE 40 MG TABLET PO SCH (10:21)
[2022-12-15] MEDS: RANOLAZINE E.R. 500 MG TABLET (FP) PO SCH ×2 (10:21→21:04)
[2022-12-15] MEDS: TAMSULOSIN HCL 0.4 MG CAP PO SCH (10:21)
[2022-12-15] MEDS: CARVEDILOL 12.5 MG TABLET (FP) PO SCH ×2 (10:21→21:04)
[2022-12-15] MEDS: POLYETHYLENE GLYCOL (HEALTHYLAX) 3350 17 GM PACKET PO SCH ×2 (10:21→21:04)
[2022-12-15] MEDS: APIXABAN 5 MG TABLET PO SCH ×2 (10:21→21:04)
[2022-12-15] MEDS: TIOTROPIUM BROMIDE 2.5 MCG (SPIRIVA) RESPIMAT INHALER IH SCH (10:22)
[2022-12-15 10:40] LABS: POTASSIUM 3.6 mmol/L (3.5-5.1)
[2022-12-15 10:41] LABS: CALCIUM 8.9 mg/dL (8.5-10.1)
[2022-12-15 10:42] LABS: BLOOD UREA NITROGEN 28.5 mg/dL (7-18)
[2022-12-15 10:45] LABS: CREATININE 1.3 mg/dL (0.55-1.3)
[2022-12-15] MEDS: TRIMETHOBENZAMIDE HCL 200MG/2ML INJ IM PRN ×2 (10:45→22:58)
[2022-12-15] MEDS ORDERED: INSULIN (NOVOLOG) ASPART 100 UNITS/ML 10ML VIAL ONE (12:36)
[2022-12-15] MEDS ORDERED: diphenhydrAMINE HCL 25 MG CAPSULE (FP) PO ONE (20:43)
[2022-12-15] MEDS: LIDOCAINE 5% TOPICAL PATCH TP SCH ×2 (21:04→22:43)
[2022-12-15] MEDS: ACETAMINOPHEN 325 MG TABLET (FP) PO PRN (22:43)
[2022-12-16] MEDS: ACETAMINOPHEN 325 MG TABLET (FP) PO PRN (05:51)
[2022-12-16] MEDS: RIFAXIMIN 550 MG TABLET PO SCH ×3 (05:53→22:22)
[2022-12-16] MEDS ORDERED: INSULIN (NOVOLOG) ASPART 100 UNITS/ML 10ML VIAL ONE ×2 (06:06→17:06)
[2022-12-16] MEDS: INSULIN SLIDING SCALE (NOVOLOG) 1 VIAL SQ SCH ×3 (06:16→17:10)
[2022-12-16] MEDS: INSULIN (LEVEMIR) 100 UNITS/ML UNITS SQ SCH (06:16)
[2022-12-16] MEDS ORDERED: INSULIN (LEVEMIR) 100 UNITS/ML UNITS SQ ONE (06:42)
[2022-12-16] MEDS: ALBUTEROL SO4 0.083% IH SOL 2.5 MG/3 ML VIAL.NEB. NEB SCH ×3 (08:00→13:55)
[2022-12-16] MEDS: TAMSULOSIN HCL 0.4 MG CAP PO SCH (09:41)
[2022-12-16] MEDS: RANOLAZINE E.R. 500 MG TABLET (FP) PO SCH ×2 (09:41→22:23)
[2022-12-16] MEDS: CARVEDILOL 12.5 MG TABLET (FP) PO SCH ×2 (09:41→22:22)
[2022-12-16] MEDS: PANTOPRAZOLE 40 MG TABLET PO SCH (09:41)
[2022-12-16] MEDS: PRIMIDONE 50 MG TABLET PO SCH ×2 (09:42→22:23)
[2022-12-16] MEDS: APIXABAN 5 MG TABLET PO SCH ×2 (09:42→22:24)
[2022-12-16] MEDS: LIPASE/PROTEASE/AMYLASE 36,000 UNIT CAPSULE PO SCH ×3 (09:42→17:22)
[2022-12-16] MEDS: POLYETHYLENE GLYCOL (HEALTHYLAX) 3350 17 GM PACKET PO SCH ×2 (09:42→22:24)
[2022-12-16] MEDS: buPROPion HCL 100 MG TABLET PO SCH (09:42)
[2022-12-16] MEDS: TIOTROPIUM BROMIDE 2.5 MCG (SPIRIVA) RESPIMAT INHALER IH SCH (09:45)
[2022-12-16] MEDS: LIDOCAINE PATCH REMOVAL MC SCH (10:34)
[2022-12-16 10:46] LABS: BASO % 0.9 % (0-2.0); HEMATOCRIT 40.4 % (35.4-49); HEMOGLOBIN 13.4 GM/dL (11.7-16.9); LYMPH % 24.9 % (8-40); MCH 30.4 pg (25.7-33.7); MCHC 33.1 g/dl (32.0-35.9); MEAN CELL VOLUME 91.8 fl (80-96); MEAN PLT VOLUME 9.2 fl (7.5-11.1); MONO % 9.5 % (3.8-10.2); NEUT % 59.7 % (42.8-82.8); PLATELET COUNT 134 10^3/uL (134-434); RDW 13.2 % (11.9-15.9); WHITE BLOOD COUNT 6.3 K/mm3 (4.0-10.0)
[2022-12-16 11:09] LABS: POTASSIUM 4.1 mmol/L (3.5-5.1)
[2022-12-16 11:11] LABS: ALBUMIN 3.2 g/dl (3.4-5.0); CALCIUM 8.9 mg/dL (8.5-10.1)
[2022-12-16 11:12] LABS: BLOOD UREA NITROGEN 24.6 mg/dL (7-18)
[2022-12-16 11:14] LABS: CREATININE 1.1 mg/dL (0.55-1.3)
[2022-12-16 11:16] LABS: BILIRUBIN,TOTAL 0.2 mg/dL (0.2-1); TOT PROT 6.6 g/dl (6.4-8.2)
[2022-12-16] MEDS: SIMETHICONE 80 MG TAB.CHEW (FP) PO SCH ×2 (17:10→22:23)
[2022-12-16] MEDS: LIDOCAINE 5% TOPICAL PATCH TP SCH (22:21)
[2022-12-17] MEDS ORDERED: diphenhydrAMINE HCL 25 MG CAPSULE (FP) PO ONE (02:14)
[2022-12-17] MEDS ORDERED: INSULIN (NOVOLOG) ASPART 100 UNITS/ML 10ML VIAL ONE ×2 (03:47→12:25)
[2022-12-17] MEDS: RIFAXIMIN 550 MG TABLET PO SCH ×2 (05:19→15:27)
[2022-12-17] MEDS: INSULIN SLIDING SCALE (NOVOLOG) 1 VIAL SQ SCH ×2 (06:31→12:38)
[2022-12-17] MEDS: INSULIN (LEVEMIR) 100 UNITS/ML UNITS SQ SCH (06:31)
[2022-12-17] MEDS: LIDOCAINE PATCH REMOVAL MC SCH (09:43)
[2022-12-17] MEDS: PANTOPRAZOLE 40 MG TABLET PO SCH (09:44)
[2022-12-17] MEDS: SIMETHICONE 80 MG TAB.CHEW (FP) PO SCH ×2 (09:44→15:27)
[2022-12-17] MEDS: TAMSULOSIN HCL 0.4 MG CAP PO SCH (09:44)
[2022-12-17] MEDS: LIPASE/PROTEASE/AMYLASE 36,000 UNIT CAPSULE PO SCH ×2 (09:44→13:43)
[2022-12-17] MEDS: APIXABAN 5 MG TABLET PO SCH (09:44)
[2022-12-17] MEDS: CARVEDILOL 12.5 MG TABLET (FP) PO SCH (09:44)
[2022-12-17] MEDS: RANOLAZINE E.R. 500 MG TABLET (FP) PO SCH (09:45)
[2022-12-17] MEDS: PRIMIDONE 50 MG TABLET PO SCH (09:45)
[2022-12-17] MEDS: buPROPion HCL 100 MG TABLET PO SCH (09:45)
[2022-12-17] MEDS: POLYETHYLENE GLYCOL (HEALTHYLAX) 3350 17 GM PACKET PO SCH (09:48)
[2022-12-17] MEDS: TIOTROPIUM BROMIDE 2.5 MCG (SPIRIVA) RESPIMAT INHALER IH SCH (10:29)
[2022-12-17 12:32] VITALS: BMI 35.2
[2022-12-17 14:06] VITALS: PULSE 57
[2022-12-17 14:17] VITALS: BP 154/81; RESP 60; TEMP 98.6
== END 2022-12-17 15:31 | disposition home or self-care (01) | DRG 291 ==
LOC: JER 05:01 → JERBED 05:43 → J4W 09:33 → J8W 12-11 18:15
PROVIDERS: ADMIT Family Medicine; ATTEND Family Medicine
DX: I11.0 Hypertensive heart disease with heart failure (principal); I50.33 Acute on chronic diastolic (congestive) heart failure; J44.1 Chronic obstructive pulmonary disease with (acute) exacerbation; A52.16 Charcot's arthropathy (tabetic); I44.0 Atrioventricular block, first degree; E78.5 Hyperlipidemia, unspecified; G20 Parkinson's disease; E11.51 Type 2 diabetes mellitus with diabetic peripheral angiopathy without gangrene; G47.30 Sleep apnea, unspecified; K58.9 Irritable bowel syndrome, unspecified; E03.9 Hypothyroidism, unspecified; K21.9 Gastro-esophageal reflux disease without esophagitis; G47.33 Obstructive sleep apnea (adult) (pediatric); N40.0 Benign prostatic hyperplasia without lower urinary tract symptoms; R91.1 Solitary pulmonary nodule; M50.30 Other cervical disc degeneration, unspecified cervical region; I48.0 Paroxysmal atrial fibrillation; M51.17 Intervertebral disc disorders with radiculopathy, lumbosacral region; M48.07 Spinal stenosis, lumbosacral region; I25.119 Atherosclerotic heart disease of native coronary artery with unspecified angina pectoris; N20.0 Calculus of kidney
CPT/HCPCS: 36415; 71045-TC-FY; 74177-TC; 76705-TC; 80048; 80053; 80061; 82962; 83690; 83735; 83880; 84100; 84443; 84484; 85025; 85027; 85610; 85730; 93005; 93010; 93970-TC; 94640; 94660; 97116-GP; 97161-GP; 99285-25; Q9967

== ENCOUNTER 2022-12-20 08:30 | Observation (INO) | payer OTHER ==
[2022-12-20 09:54] LABS: VENOUS BASE EXCESS -0.5 mmol/L (-2-2); VENOUS O2 SATURATION 65.7 % (70-80); VENOUS PCO2 51.8 mmHg (38-52); VENOUS PH 7.325 (7.310-7.410)
[2022-12-20 09:57] LABS: BASO % 0.5 % (0-2.0); EOS % 2.5 % (0-4.5); HEMATOCRIT 40.9 % (35.4-49); HEMOGLOBIN 14.4 GM/dL (11.7-16.9); LYMPH % 11.7 % (8-40); MCH 31.6 pg (25.7-33.7); MCHC 35.1 g/dl (32.0-35.9); MEAN CELL VOLUME 89.8 fl (80-96); MEAN PLT VOLUME 8.7 fl (7.5-11.1); MONO % 7.2 % (3.8-10.2); NEUT % 78.1 % (42.8-82.8); PLATELET COUNT 158 10^3/uL (134-434); RBC 4.55 M/mm3 (4.00-5.60); RDW 13.3 % (11.9-15.9); WHITE BLOOD COUNT 10.9 K/mm3 (4.0-10.0)
[2022-12-20 10:08] LABS: INR 1.2 (0.83-1.09); PROTHROMBIN TIME (PATIENT) 13.9 SEC (9.7-13.0)
[2022-12-20 10:10] LABS: ACTIVATED PTT 35.8 SECONDS (25.2-36.5)
[2022-12-20 10:41] LABS: CALCIUM 9.2 mg/dL (8.5-10.1)
[2022-12-20 10:42] LABS: ALBUMIN 3.7 g/dl (3.4-5.0); BLOOD UREA NITROGEN 26.3 mg/dL (7-18)
[2022-12-20 10:45] LABS: CREATININE 1.6 mg/dL (0.55-1.3)
[2022-12-20 10:46] LABS: TOT PROT 7.3 g/dl (6.4-8.2)
[2022-12-20 10:48] LABS: BILIRUBIN,TOTAL 0.2 mg/dL (0.2-1)
[2022-12-20 10:50] LABS: N-TERMINAL BNP 25.7 pg/ml (5-125)
[2022-12-20] MEDS ORDERED: SODIUM CHLORIDE 0.9% 500 ML INFUS.BAG IV ONE (11:20)
[2022-12-20] MEDS ORDERED: VANCOMYCIN 1 GM in D5W (PRE-DOCKED) 1,000 MG/250 ML (RESTRICTED TO ID ONLY IVPB ONE (12:58)
[2022-12-20] MEDS ORDERED: VANCOMYCIN/WATER FOR INJ (PEG) 1,000 MG/200 ML BAG IVPB ONE (13:10)
[2022-12-20] MEDS ORDERED: diphenhydrAMINE HCL 25 MG CAPSULE (FP) PO ONE ×2 (15:01→15:05)
[2022-12-20] MEDS ORDERED: buPROPion HCL 100 MG TABLET PO SCH (16:00)
[2022-12-20] MEDS: LIPASE/PROTEASE/AMYLASE 36,000 UNIT CAPSULE PO SCH (17:58)
[2022-12-20] MEDS: APIXABAN 5 MG TABLET PO SCH (21:10)
[2022-12-20] MEDS: LIDOCAINE 5% TOPICAL PATCH TP SCH (21:10)
[2022-12-20] MEDS: CARVEDILOL 12.5 MG TABLET (FP) PO SCH (21:10)
[2022-12-20] MEDS: RANOLAZINE E.R. 500 MG TABLET (FP) PO SCH (21:10)
[2022-12-20] MEDS: POLYETHYLENE GLYCOL (HEALTHYLAX) 3350 17 GM PACKET PO SCH (21:10)
[2022-12-20] MEDS: DOCUSATE SODIUM 100 MG CAPSULE (FP) PO SCH (21:10)
[2022-12-20] MEDS: LIDOCAINE PATCH REMOVAL MC SCH (22:20)
[2022-12-20] MEDS: RIFAXIMIN 550 MG TABLET PO SCH (22:21)
[2022-12-20] MEDS: PRIMIDONE 50 MG TABLET PO SCH (22:21)
[2022-12-21] MEDS: RIFAXIMIN 550 MG TABLET PO SCH ×3 (06:17→22:11)
[2022-12-21] MEDS ORDERED: INSULIN (LEVEMIR) 100 UNITS/ML UNITS SQ SCH (07:00)
[2022-12-21] MEDS: LIPASE/PROTEASE/AMYLASE 36,000 UNIT CAPSULE PO SCH ×3 (07:44→16:55)
[2022-12-21] MEDS: RANOLAZINE E.R. 500 MG TABLET (FP) PO SCH ×2 (09:34→22:09)
[2022-12-21] MEDS: FUROSEMIDE 40 MG TABLET (FP) PO SCH (09:35)
[2022-12-21] MEDS: APIXABAN 5 MG TABLET PO SCH ×2 (09:35→22:09)
[2022-12-21] MEDS: DOCUSATE SODIUM 100 MG CAPSULE (FP) PO SCH ×2 (09:35→22:09)
[2022-12-21] MEDS: CARVEDILOL 12.5 MG TABLET (FP) PO SCH ×2 (09:35→22:09)
[2022-12-21] MEDS: buPROPion HCL 100 MG TABLET PO SCH (09:35)
[2022-12-21] MEDS: PANTOPRAZOLE 40 MG TABLET PO SCH (09:35)
[2022-12-21] MEDS: POLYETHYLENE GLYCOL (HEALTHYLAX) 3350 17 GM PACKET PO SCH ×2 (09:36→22:10)
[2022-12-21] MEDS: PRIMIDONE 50 MG TABLET PO SCH ×2 (09:36→22:11)
[2022-12-21 09:40] LABS: BASO % 0.6 % (0-2.0); EOS % 3.9 % (0-4.5); HEMATOCRIT 39.7 % (35.4-49); HEMOGLOBIN 13.3 GM/dL (11.7-16.9); LYMPH % 22.9 % (8-40); MCH 30.7 pg (25.7-33.7); MCHC 33.5 g/dl (32.0-35.9); MEAN CELL VOLUME 91.5 fl (80-96); MEAN PLT VOLUME 9.7 fl (7.5-11.1); MONO % 9.3 % (3.8-10.2); NEUT % 63.3 % (42.8-82.8); PLATELET COUNT 145 10^3/uL (134-434); RBC 4.33 M/mm3 (4.00-5.60); RDW 13.4 % (11.9-15.9); WHITE BLOOD COUNT 6.4 K/mm3 (4.0-10.0)
[2022-12-21 09:51] LABS: POTASSIUM 4.1 mmol/L (3.5-5.1)
[2022-12-21 10:00] LABS: ALBUMIN 3.2 g/dl (3.4-5.0); CALCIUM 8.5 mg/dL (8.5-10.1)
[2022-12-21] MEDS ORDERED: TIOTROPIUM BROMIDE 2.5 MCG (SPIRIVA) RESPIMAT INHALER IH SCH (10:00)
[2022-12-21] MEDS ORDERED: TAMSULOSIN HCL 0.4 MG CAP PO SCH (10:00)
[2022-12-21] MEDS ORDERED: FLUTICASONE PROP 0.05% 16 GM NASAL SPRAY NS SCH (10:00)
[2022-12-21 10:01] LABS: BLOOD UREA NITROGEN 20.5 mg/dL (7-18); MAGNESIUM 2.7 mg/dL (1.8-2.4)
[2022-12-21 10:03] LABS: CREATININE 1.3 mg/dL (0.55-1.3)
[2022-12-21 10:05] LABS: BILIRUBIN,TOTAL 0.3 mg/dL (0.2-1); TOT PROT 6.3 g/dl (6.4-8.2)
[2022-12-21] MEDS: ACETAMINOPHEN 325 MG TABLET (FP) PO PRN (13:57)
[2022-12-21] MEDS ORDERED: diphenhydrAMINE HCL 12.5 MG/5 ML UNIT-DOSE CUPS PO PRN (15:55)
[2022-12-21] MEDS ORDERED: ALBUTEROL SO4 0.083% IH SOL 2.5 MG/3 ML VIAL.NEB. NEB PRN (15:57)
[2022-12-21] MEDS ORDERED: INSULIN SLIDING SCALE (NOVOLOG) 1 VIAL SQ SCH ×2 (16:30→20:41)
[2022-12-21] MEDS: FLUTICASONE/UMECLIDIN/VILANTER(200-62.5-25 TRELEGY ELLIPTA) INAHLER IH SCH (16:32)
[2022-12-21] MEDS ORDERED: INSULIN (NOVOLOG) ASPART 100 UNITS/ML 10ML VIAL ONE (16:39)
[2022-12-21] MEDS: LIDOCAINE 5% TOPICAL PATCH TP SCH (22:09)
[2022-12-21] MEDS: VANCOMYCIN/WATER FOR INJ (PEG) 1,000 MG/200 ML BAG IVPB SCH (22:09)
[2022-12-21] MEDS: LIDOCAINE PATCH REMOVAL MC SCH (22:10)
[2022-12-21] MEDS: INSULIN (LEVEMIR) 100 UNITS/ML UNITS SQ SCH (22:14)
[2022-12-21] MEDS: INSULIN SLIDING SCALE (NOVOLOG) 1 VIAL SQ SCH (22:15)
[2022-12-22] MEDS: INSULIN (LEVEMIR) 100 UNITS/ML UNITS SQ SCH ×2 (06:37→22:28)
[2022-12-22] MEDS: RIFAXIMIN 550 MG TABLET PO SCH ×3 (06:37→22:11)
[2022-12-22] MEDS: INSULIN SLIDING SCALE (NOVOLOG) 1 VIAL SQ SCH ×4 (06:38→22:26)
[2022-12-22] MEDS ORDERED: diphenhydrAMINE HCL 25 MG CAPSULE (FP) PO ONE (07:00)
[2022-12-22] MEDS: LIPASE/PROTEASE/AMYLASE 36,000 UNIT CAPSULE PO SCH ×3 (08:45→16:55)
[2022-12-22] MEDS: TAMSULOSIN HCL 0.4 MG CAP PO SCH (08:45)
[2022-12-22] MEDS: POLYETHYLENE GLYCOL (HEALTHYLAX) 3350 17 GM PACKET PO SCH ×2 (09:11→22:12)
[2022-12-22] MEDS: PANTOPRAZOLE 40 MG TABLET PO SCH (09:12)
[2022-12-22] MEDS: RANOLAZINE E.R. 500 MG TABLET (FP) PO SCH ×2 (09:12→22:11)
[2022-12-22] MEDS: FUROSEMIDE 40 MG TABLET (FP) PO SCH (09:12)
[2022-12-22] MEDS: DOCUSATE SODIUM 100 MG CAPSULE (FP) PO SCH ×2 (09:12→22:11)
[2022-12-22] MEDS: APIXABAN 5 MG TABLET PO SCH ×2 (09:12→22:11)
[2022-12-22] MEDS: CARVEDILOL 12.5 MG TABLET (FP) PO SCH ×2 (09:12→22:11)
[2022-12-22] MEDS: ACETAMINOPHEN 325 MG TABLET (FP) PO PRN ×2 (09:13→20:30)
[2022-12-22] MEDS: FLUTICASONE/UMECLIDIN/VILANTER(200-62.5-25 TRELEGY ELLIPTA) INAHLER IH SCH (09:13)
[2022-12-22] MEDS: PRIMIDONE 50 MG TABLET PO SCH ×2 (09:21→22:11)
[2022-12-22] MEDS: buPROPion HCL 100 MG TABLET PO SCH (09:21)
[2022-12-22] MEDS ORDERED: diphenhydrAMINE HCL 25 MG CAPSULE (FP) PO PRN (10:15)
[2022-12-22] MEDS: FLUTICASONE PROP 0.05% 16 GM NASAL SPRAY NS SCH ×2 (13:36→22:12)
[2022-12-22 14:52] VITALS: BMI 36.2
[2022-12-22] MEDS ORDERED: INSULIN (NOVOLOG) ASPART 100 UNITS/ML 10ML VIAL ONE (16:53)
[2022-12-22] MEDS: VANCOMYCIN/WATER FOR INJ (PEG) 1,000 MG/200 ML BAG IVPB SCH (18:25)
[2022-12-22] MEDS: LIDOCAINE PATCH REMOVAL MC SCH (22:24)
[2022-12-22] MEDS: LIDOCAINE 5% TOPICAL PATCH TP SCH (22:30)
[2022-12-22] MEDS ORDERED: MAGNESIUM HYDROX 2400MG/30ML ORAL SUSPENSION 30 ML CUP PO PRN (22:54)
[2022-12-23 01:59] VITALS: TEMP 97.6
[2022-12-23] MEDS: INSULIN SLIDING SCALE (NOVOLOG) 1 VIAL SQ SCH ×2 (06:45→11:38)
[2022-12-23] MEDS: INSULIN (LEVEMIR) 100 UNITS/ML UNITS SQ SCH (06:46)
[2022-12-23] MEDS: POLYETHYLENE GLYCOL (HEALTHYLAX) 3350 17 GM PACKET PO SCH (09:30)
[2022-12-23] MEDS: PANTOPRAZOLE 40 MG TABLET PO SCH (09:30)
[2022-12-23] MEDS: RANOLAZINE E.R. 500 MG TABLET (FP) PO SCH (09:30)
[2022-12-23] MEDS: APIXABAN 5 MG TABLET PO SCH (09:30)
[2022-12-23] MEDS: FUROSEMIDE 40 MG TABLET (FP) PO SCH (09:30)
[2022-12-23] MEDS: CARVEDILOL 12.5 MG TABLET (FP) PO SCH (09:30)
[2022-12-23] MEDS: TAMSULOSIN HCL 0.4 MG CAP PO SCH (09:30)
[2022-12-23] MEDS: DOCUSATE SODIUM 100 MG CAPSULE (FP) PO SCH (09:30)
[2022-12-23] MEDS: LIPASE/PROTEASE/AMYLASE 36,000 UNIT CAPSULE PO SCH ×2 (09:32→12:10)
[2022-12-23] MEDS: PRIMIDONE 50 MG TABLET PO SCH (09:32)
[2022-12-23] MEDS: buPROPion HCL 100 MG TABLET PO SCH (09:33)
[2022-12-23] MEDS: FLUTICASONE/UMECLIDIN/VILANTER(200-62.5-25 TRELEGY ELLIPTA) INAHLER IH SCH (09:34)
[2022-12-23] MEDS: FLUTICASONE PROP 0.05% 16 GM NASAL SPRAY NS SCH (09:34)
[2022-12-23] MEDS ORDERED: CEPHALEXIN MONOHYDRATE 500 MG CAPSULE (UD) PO SCH (10:00)
[2022-12-23] MEDS: RIFAXIMIN 550 MG TABLET PO SCH ×2 (11:03→13:20)
[2022-12-23] MEDS ORDERED: INSULIN (NOVOLOG) ASPART 100 UNITS/ML 10ML VIAL ONE (11:33)
[2022-12-23 14:12] VITALS: BP 147/78; PULSE 66; RESP 19
== END 2022-12-23 14:57 | disposition home or self-care (01) ==
LOC: JER 08:30 → JERBED 13:01 → J4W 16:06
PROVIDERS: ADMIT Family Medicine; ATTEND Family Medicine
PROC: 3E033GC Introduction of Other Therapeutic Substance into Peripheral Vein, Percutaneous Approach (ICD-10-PCS; principal; 2022-12-20)
PROC: 3E033GC Introduction of Other Therapeutic Substance into Peripheral Vein, Percutaneous Approach (ICD-10-PCS; 2022-12-20)
PROC: 3E013VG Introduction of Insulin into Subcutaneous Tissue, Percutaneous Approach (ICD-10-PCS; 2022-12-20)
PROC: 3E0337Z Introduction of Electrolytic and Water Balance Substance into Peripheral Vein, Percutaneous Approach (ICD-10-PCS; 2022-12-20)
PROC: 3E03329 Introduction of Other Anti-infective into Peripheral Vein, Percutaneous Approach (ICD-10-PCS; 2022-12-20)
DX: I48.91 Unspecified atrial fibrillation (principal); R06.02 Shortness of breath; L03.115 Cellulitis of right lower limb; I73.9 Peripheral vascular disease, unspecified; R55 Syncope and collapse; G20 Parkinson's disease; J44.9 Chronic obstructive pulmonary disease, unspecified; E78.5 Hyperlipidemia, unspecified; Z87.891 Personal history of nicotine dependence; N40.0 Benign prostatic hyperplasia without lower urinary tract symptoms; E11.9 Type 2 diabetes mellitus without complications; R21 Rash and other nonspecific skin eruption; Z88.0 Allergy status to penicillin
CPT/HCPCS: 36415; 71045-TC-FY; 71275-TC; 80053; 82803; 82962; 83735; 83880; 84443; 84484; 85025; 85610; 85730; 87040; 93005; 93010; 93971-TC; 94761; 96365; 96366; 96367; 96372; 96375; 97116-GP; 97162-GP; 99285-25; G0378

== ENCOUNTER 2023-01-17 02:01 | Observation (INO) | payer OTHER ==
[2023-01-17] MEDS ORDERED: VANCOMYCIN 1 GM PREMIX - 1 GM/200 ML BAG IVPB ONE (03:02)
[2023-01-17] MEDS ORDERED: VANCOMYCIN 1 GRAM (PRE-DOCKED) 1,000 MG/250 ML BAG IVPB ONE (03:22)
[2023-01-17 04:04] LABS: BASO % 0.8 % (0-2.0); EOS % 2.9 % (0-4.5); HEMATOCRIT 35.7 % (35.4-49); HEMOGLOBIN 12.4 GM/dL (11.7-16.9); LYMPH % 20.6 % (8-40); MCH 30.9 pg (25.7-33.7); MCHC 34.6 g/dl (32.0-35.9); MEAN CELL VOLUME 89.1 fl (80-96); MEAN PLT VOLUME 7.9 fl (7.5-11.1); MONO % 12.6 % (3.8-10.2); NEUT % 63.1 % (42.8-82.8); PLATELET COUNT 157 10^3/uL (134-434); RDW 13.8 % (11.9-15.9); WHITE BLOOD COUNT 6.5 K/mm3 (4.0-10.0)
[2023-01-17 04:06] LABS: INR 1.09 (0.83-1.09); PROTHROMBIN TIME (PATIENT) 12.6 SEC (9.7-13.0)
[2023-01-17 04:08] LABS: ACTIVATED PTT 33.8 SECONDS (25.2-36.5); POTASSIUM 3.7 mmol/L (3.5-5.1)
[2023-01-17 04:10] LABS: CALCIUM 8.7 mg/dL (8.5-10.1)
[2023-01-17 04:11] LABS: ALBUMIN 3.2 g/dl (3.4-5.0); BLOOD UREA NITROGEN 21.6 mg/dL (7-18)
[2023-01-17 04:14] LABS: CREATININE 1.4 mg/dL (0.55-1.3)
[2023-01-17 04:15] LABS: BILIRUBIN,TOTAL 0.3 mg/dL (0.2-1)
[2023-01-17 04:16] LABS: TOT PROT 6.6 g/dl (6.4-8.2)
[2023-01-17] MEDS ORDERED: DOCUSATE SODIUM 100 MG CAPSULE (FP) PO PRN (06:19)
[2023-01-17] MEDS: INSULIN SLIDING SCALE (NOVOLOG) 1 VIAL SQ SCH ×4 (07:32→22:00)
[2023-01-17] MEDS ORDERED: MAG HYDROX/AL HYDROX/SIMETH 30 ML UNIT-DOSE CUP PO PRN (07:41)
[2023-01-17] MEDS ORDERED: PANTOPRAZOLE SODIUM 40 MG VIAL IVPUSH ONE (07:42)
[2023-01-17] MEDS ORDERED: POLYETHYLENE GLYCOL (HEALTHYLAX) 3350 17 GM PACKET PO ONE (07:45)
[2023-01-17] MEDS ORDERED: buPROPion HCL 100 MG TABLET PO SCH (08:15)
[2023-01-17] MEDS: TAMSULOSIN HCL 0.4 MG CAP PO SCH (08:40)
[2023-01-17] MEDS ORDERED: VANCOMYCIN PREMIX 1.5 GM 1,500 MG/300 ML BAG IVPB SCH (09:00)
[2023-01-17] MEDS: FUROSEMIDE 40 MG TABLET (FP) PO SCH (09:24)
[2023-01-17] MEDS: APIXABAN 5 MG TABLET PO SCH ×2 (09:24→21:19)
[2023-01-17] MEDS: CARVEDILOL 12.5 MG TABLET (FP) PO SCH ×2 (09:24→21:19)
[2023-01-17] MEDS: SUCRALFATE 1 GM TABLET (FP) PO SCH (09:24)
[2023-01-17] MEDS: PRIMIDONE 50 MG TABLET PO SCH ×2 (09:25→21:20)
[2023-01-17] MEDS: buPROPion HCL 100 MG TABLET PO SCH ×2 (09:26→21:22)
[2023-01-17] MEDS: RANOLAZINE E.R. 500 MG TABLET (FP) PO SCH ×2 (09:35→21:19)
[2023-01-17] MEDS: ACETAMINOPHEN 1000 MG/100 ML BAG IVPB PRN ×2 (09:44→18:38)
[2023-01-17] MEDS ORDERED: LIDOCAINE PATCH REMOVAL MC SCH (10:00)
[2023-01-17] MEDS: METOCLOPRAMIDE HCL 10 MG TABLET (FP) PO SCH ×2 (12:15→16:41)
[2023-01-17] MEDS: LIPASE/PROTEASE/AMYLASE 36,000 UNIT CAPSULE PO SCH ×2 (12:15→16:41)
[2023-01-17] MEDS: RIFAXIMIN 550 MG TABLET PO SCH ×2 (13:30→21:19)
[2023-01-17 14:09] VITALS: BMI 37.0
[2023-01-17] MEDS: VANCOMYCIN PREMIX 1.5 GM 1,500 MG/300 ML BAG IVPB SCH (16:33)
[2023-01-17 18:51] VITALS: RESP 18
[2023-01-17] MEDS: POLYETHYLENE GLYCOL (HEALTHYLAX) 3350 17 GM PACKET PO SCH (21:20)
[2023-01-17] MEDS: LIDOCAINE 5% TOPICAL PATCH TP SCH (21:21)
[2023-01-17] MEDS: PREGABALIN 100 MG CAPSULE PO SCH (23:48)
[2023-01-18] MEDS: ACETAMINOPHEN 1000 MG/100 ML BAG IVPB PRN (03:52)
[2023-01-18] MEDS: VANCOMYCIN PREMIX 1.5 GM 1,500 MG/300 ML BAG IVPB SCH ×2 (04:27→15:30)
[2023-01-18] MEDS: RIFAXIMIN 550 MG TABLET PO SCH ×3 (06:15→22:46)
[2023-01-18] MEDS: METOCLOPRAMIDE HCL 10 MG TABLET (FP) PO SCH ×3 (06:16→16:57)
[2023-01-18] MEDS: PREGABALIN 100 MG CAPSULE PO SCH ×3 (06:16→22:46)
[2023-01-18] MEDS: INSULIN SLIDING SCALE (NOVOLOG) 1 VIAL SQ SCH ×4 (06:17→22:45)
[2023-01-18 08:12] LABS: BASO % 0.7 % (0-2.0); EOS % 4.2 % (0-4.5); HEMATOCRIT 35.9 % (35.4-49); HEMOGLOBIN 12.5 GM/dL (11.7-16.9); LYMPH % 21.2 % (8-40); MCH 30.9 pg (25.7-33.7); MCHC 34.7 g/dl (32.0-35.9); MEAN CELL VOLUME 88.9 fl (80-96); MEAN PLT VOLUME 7.5 fl (7.5-11.1); MONO % 11.5 % (3.8-10.2); NEUT % 62.4 % (42.8-82.8); PLATELET COUNT 144 10^3/uL (134-434); RBC 4.04 M/mm3 (4.00-5.60); RDW 13.7 % (11.9-15.9); WHITE BLOOD COUNT 5.8 K/mm3 (4.0-10.0)
[2023-01-18 08:42] LABS: POTASSIUM 3.8 mmol/L (3.5-5.1)
[2023-01-18 08:46] LABS: CALCIUM 8.7 mg/dL (8.5-10.1)
[2023-01-18 08:47] LABS: BLOOD UREA NITROGEN 15.7 mg/dL (7-18); MAGNESIUM 2.3 mg/dL (1.8-2.4)
[2023-01-18 08:50] LABS: PHOSPHOROUS 3.2 mg/dL (2.5-4.9)
[2023-01-18] MEDS: LIPASE/PROTEASE/AMYLASE 36,000 UNIT CAPSULE PO SCH ×3 (09:06→16:57)
[2023-01-18] MEDS: PRIMIDONE 50 MG TABLET PO SCH ×2 (09:06→22:47)
[2023-01-18] MEDS: SUCRALFATE 1 GM TABLET (FP) PO SCH (09:06)
[2023-01-18] MEDS: POLYETHYLENE GLYCOL (HEALTHYLAX) 3350 17 GM PACKET PO SCH ×2 (09:06→22:46)
[2023-01-18] MEDS: buPROPion HCL 100 MG TABLET PO SCH ×2 (09:06→22:48)
[2023-01-18] MEDS: RANOLAZINE E.R. 500 MG TABLET (FP) PO SCH ×2 (09:06→22:46)
[2023-01-18] MEDS: APIXABAN 5 MG TABLET PO SCH ×2 (09:07→22:46)
[2023-01-18] MEDS: TAMSULOSIN HCL 0.4 MG CAP PO SCH (09:07)
[2023-01-18] MEDS: FUROSEMIDE 40 MG TABLET (FP) PO SCH (09:07)
[2023-01-18] MEDS: CARVEDILOL 12.5 MG TABLET (FP) PO SCH ×2 (09:07→22:47)
[2023-01-18] MEDS: LIDOCAINE PATCH REMOVAL MC SCH (09:08)
[2023-01-18] MEDS: oxyCODONE HCL 5 MG TABLET PO PRN ×2 (10:44→20:24)
[2023-01-18] MEDS ORDERED: INSULIN (NOVOLOG MIX 70/30) 100 UNITS/ML MDV SQ ONE (17:01)
[2023-01-18] MEDS ORDERED: SENNOSIDES/DOCUSATE COMBO (SENNA PLUS) TABLET (UD) PO ONE (22:00)
[2023-01-18] MEDS: LIDOCAINE 5% TOPICAL PATCH TP SCH (22:47)
[2023-01-19] MEDS: oxyCODONE HCL 5 MG TABLET PO PRN (03:24)
[2023-01-19] MEDS: VANCOMYCIN PREMIX 1.5 GM 1,500 MG/300 ML BAG IVPB SCH (04:10)
[2023-01-19] MEDS: METOCLOPRAMIDE HCL 10 MG TABLET (FP) PO SCH ×2 (06:07→11:21)
[2023-01-19] MEDS: RIFAXIMIN 550 MG TABLET PO SCH ×2 (06:07→13:29)
[2023-01-19] MEDS: PREGABALIN 100 MG CAPSULE PO SCH ×2 (06:08→13:29)
[2023-01-19] MEDS: INSULIN SLIDING SCALE (NOVOLOG) 1 VIAL SQ SCH ×3 (06:08→11:20)
[2023-01-19] MEDS ORDERED: INSULIN (LEVEMIR) 100 UNITS/ML UNITS SQ SCH (07:00)
[2023-01-19] MEDS ORDERED: INSULIN (LEVEMIR) 100 UNITS/ML UNITS SQ ONE (08:59)
[2023-01-19] MEDS ORDERED: INSULIN (NOVOLOG) ASPART 100 UNITS/ML 10ML VIAL ONE ×2 (08:59→09:23)
[2023-01-19] MEDS: FUROSEMIDE 40 MG TABLET (FP) PO SCH (09:42)
[2023-01-19] MEDS: APIXABAN 5 MG TABLET PO SCH (09:42)
[2023-01-19] MEDS: CARVEDILOL 12.5 MG TABLET (FP) PO SCH (09:42)
[2023-01-19] MEDS: POLYETHYLENE GLYCOL (HEALTHYLAX) 3350 17 GM PACKET PO SCH (09:42)
[2023-01-19] MEDS: TAMSULOSIN HCL 0.4 MG CAP PO SCH (09:43)
[2023-01-19] MEDS: LIPASE/PROTEASE/AMYLASE 36,000 UNIT CAPSULE PO SCH ×2 (09:43→11:21)
[2023-01-19] MEDS: SUCRALFATE 1 GM TABLET (FP) PO SCH (09:44)
[2023-01-19] MEDS: PRIMIDONE 50 MG TABLET PO SCH (09:45)
[2023-01-19] MEDS: RANOLAZINE E.R. 500 MG TABLET (FP) PO SCH (09:45)
[2023-01-19] MEDS: buPROPion HCL 100 MG TABLET PO SCH (09:45)
[2023-01-19 09:55] LABS: POTASSIUM 3.9 mmol/L (3.5-5.1)
[2023-01-19 10:03] LABS: BLOOD UREA NITROGEN 15.8 mg/dL (7-18); CALCIUM 8.9 mg/dL (8.5-10.1)
[2023-01-19] MEDS: LIDOCAINE PATCH REMOVAL MC SCH (10:27)
[2023-01-19 14:07] VITALS: BP 158/89; PULSE 76; TEMP 98.1
== END 2023-01-19 16:04 | disposition home or self-care (01) ==
LOC: JER 02:01 → JERBED 05:53 → J7W 08:00
PROVIDERS: ADMIT Internal Medicine; ATTEND Family Medicine
PROC: 3E033GC Introduction of Other Therapeutic Substance into Peripheral Vein, Percutaneous Approach (ICD-10-PCS; principal; 2023-01-17)
PROC: 3E013VG Introduction of Insulin into Subcutaneous Tissue, Percutaneous Approach (ICD-10-PCS; 2023-01-17)
PROC: 3E0333Z Introduction of Anti-inflammatory into Peripheral Vein, Percutaneous Approach (ICD-10-PCS; 2023-01-17)
PROC: 3E033GC Introduction of Other Therapeutic Substance into Peripheral Vein, Percutaneous Approach (ICD-10-PCS; 2023-01-17)
PROC: 3E03329 Introduction of Other Anti-infective into Peripheral Vein, Percutaneous Approach (ICD-10-PCS; 2023-01-17)
DX: L03.115 Cellulitis of right lower limb (principal); L02.415 Cutaneous abscess of right lower limb; K58.9 Irritable bowel syndrome, unspecified; G93.41 Metabolic encephalopathy; I48.91 Unspecified atrial fibrillation; J44.1 Chronic obstructive pulmonary disease with (acute) exacerbation; E11.40 Type 2 diabetes mellitus with diabetic neuropathy, unspecified; M14.671 Charcot's joint, right ankle and foot; I25.10 Atherosclerotic heart disease of native coronary artery without angina pectoris; N40.0 Benign prostatic hyperplasia without lower urinary tract symptoms; M14.672 Charcot's joint, left ankle and foot; R78.81 Bacteremia; E03.9 Hypothyroidism, unspecified; G47.30 Sleep apnea, unspecified; I50.9 Heart failure, unspecified; E66.8 Other obesity; Z68.37 Body mass index [BMI] 37.0-37.9, adult; G20 Parkinson's disease; Z87.891 Personal history of nicotine dependence; K21.9 Gastro-esophageal reflux disease without esophagitis; Z88.0 Allergy status to penicillin
CPT/HCPCS: 36415; 71045-TC-FY; 80048; 80053; 82550; 82553; 82962; 83735; 84100; 84484; 85025; 85610; 85730; 86850; 86900; 86901; 93005; 93010; 96365; 96372; 96375; 96376; 97116-GP; 99285-25; G0378; G0480

== ENCOUNTER 2023-01-23 19:32 | Emergency (ER) | payer OTHER ==
[2023-01-23 19:48] VITALS: BP 126/75; PULSE 74; RESP 18; TEMP 98.2; BMI 38.1
[2023-01-23 20:24] LABS: HEMATOCRIT 40.4 % (35.4-49); HEMOGLOBIN 13.9 G/dL (11.7-16.9); MCH 31.8 pg (25.7-33.7); MCHC 34.3 g/dl (32.0-35.9); MEAN CELL VOLUME 92.6 fl (80-96); MEAN PLT VOLUME 7.3 fl (7.5-11.1); PLATELET COUNT 150.3 10^3/uL (134-434); RBC 4.36 10^6/uL (4.00-5.60); RDW 13.2 % (11.9-15.9)
[2023-01-23 20:46] LABS: BLOOD UREA NITROGEN 18.9 mg/dl (7-18); CALCIUM 9.1 mg/dl (8.5-10.1); CREATININE 1.5 mg/dl (0.6-1.3); POTASSIUM 3.8 mmol/L (3.5-5.1); SGOT/AST 17.1 U/L (15-37); SGPT/ALT 19.8 U/L (7-52); TOT PROT 6.6 g/dl (6.4-8.2)
[2023-01-23] MEDS ORDERED: DALBAVANCIN HCL 1,500 MG in DEXTROSE 5%-WATER - 500 ML IVPB ONE (21:07)
[2023-01-23 23:23] LABS: BILIRUBIN,TOTAL 0.4 mg/dL (0.2-1)
== END 2023-01-23 22:24 | disposition home or self-care (01) ==
LOC: FER 19:32
DX: L03.115 Cellulitis of right lower limb (principal); L03.116 Cellulitis of left lower limb; R60.0 Localized edema; L53.9 Erythematous condition, unspecified; I87.2 Venous insufficiency (chronic) (peripheral)
CPT/HCPCS: 36415; 80053; 85027; 99284-25; J0875

== ENCOUNTER 2023-06-12 00:18 | Observation (INO) | payer OTHER ==
[2023-06-12] MEDS ORDERED: FAMOTIDINE 20 MG/50 ML IVPB 20 MG/50 ML MG IVPB ONE ×2 (00:42→00:45)
[2023-06-12] MEDS ORDERED: ONDANSETRON 4 MG/2 ML VIAL IVPUSH ONE ×2 (00:42→15:51)
[2023-06-12] MEDS ORDERED: morphine CARPU-JECT 4 MG/1 ML DISP.SYRIN IVPUSH ONE (00:42)
[2023-06-12] MEDS ORDERED: morphine SULFATE 4 MG/ML VIAL ONE (00:45)
[2023-06-12] MEDS ORDERED: ONDANSETRON 4 MG/2 ML VIAL ONE ×2 (00:45→16:29)
[2023-06-12 00:50] LABS: EOS % 3.2 % (0-4.5); HEMATOCRIT 43.9 % (35.4-49); LYMPH % 21.6 % (8-40); MCH 31.9 pg (25.7-33.7); MCHC 34.2 g/dl (32.0-35.9); MEAN CELL VOLUME 93.3 fl (80-96); MEAN PLT VOLUME 8.2 fl (7.5-11.1); MONO % 7.8 % (3.8-10.2); NEUT % 66.4 % (42.8-82.8); PLATELET COUNT 172 10^3/uL (134-434); WHITE BLOOD COUNT 9.2 K/mm3 (4.0-10.0)
[2023-06-12 01:02] LABS: INR 1.12 (0.83-1.09)
[2023-06-12 01:05] LABS: ACTIVATED PTT 29.8 SECONDS (25.2-36.5)
[2023-06-12 01:11] LABS: POTASSIUM 4.1 mmol/L (3.5-5.1)
[2023-06-12 01:13] LABS: CALCIUM 9.5 mg/dL (8.5-10.1)
[2023-06-12 01:14] LABS: ALBUMIN 3.7 g/dl (3.4-5.0)
[2023-06-12 01:16] LABS: CREATININE 1.6 mg/dL (0.55-1.3)
[2023-06-12 01:18] LABS: BILIRUBIN,TOTAL 0.2 mg/dL (0.2-1); TOT PROT 7.5 g/dl (6.4-8.2)
[2023-06-12] MEDS ORDERED: SODIUM CHLORIDE 0.9% 500 ML INFUS.BAG IV ONE (01:20)
[2023-06-12] MEDS ORDERED: ACETAMINOPHEN 1000 MG/100 ML BAG IVPB ONE ×2 (01:25→10:37)
[2023-06-12] MEDS ORDERED: ACETAMINOPHEN INJECTION 100 ML IVPB ONE ×2 (01:36→10:42)
[2023-06-12] MEDS ORDERED: morphine CARPU-JECT 2 MG/1 ML DISP.SYRIN IVPUSH ONE (03:42)
[2023-06-12 04:01] LABS: EPI CELLS 2 /uL (0-25.1); HYALINE CASTS 0 /uL (0-3.1); PH,URINE 5.5 (5.0-8.0); URINE APPEARANCE CLEAR; URINE BACTERIA 0 /uL (0-1359); URINE BILIRUBIN NEGATIVE (NEGATIVE); URINE COLOR YELLOW; URINE GLUCOSE (UA) 3+ (NEGATIVE); URINE KETONE NEGATIVE (NEGATIVE); URINE LEUK ESTERASE NEGATIVE (NEGATIVE); URINE NITRITE NEGATIVE (NEGATIVE); URINE PROTEIN 1+ (NEGATIVE); URINE RBC 47 /uL (0-23.9); URINE UROBILINOGEN 0.2 mg/dL (0.2-1.0); URINE WBC 1 /uL (0-25.8)
[2023-06-12] MEDS ORDERED: KETOROLAC TROMETHAMINE 15 MG/ML VIAL IVPUSH ONE (04:19)
[2023-06-12] MEDS ORDERED: KETOROLAC TROMETHAMINE 15 MG/ML VIAL ONE (04:25)
[2023-06-12] MEDS ORDERED: SODIUM PHOSPHATE/NA BIPHOS 133 ML ENEMA PR ONE (12:59)
[2023-06-12] MEDS ORDERED: POLYETHYLENE GLYCOL (HEALTHYLAX) 3350 17 GM PACKET PO ONE (16:00)
[2023-06-12] MEDS ORDERED: POLYETHYLENE GLYCOL (HEALTHYLAX) 3350 17 GM PACKET ONE (16:28)
[2023-06-12] MEDS: PANTOPRAZOLE 40 MG TABLET PO SCH (17:13)
[2023-06-12] MEDS: INSULIN (NOVOLOG) ASPART 100 UNITS/ML 10ML VIAL SQ SCH ×2 (18:17→21:26)
[2023-06-12] MEDS: LIPASE/PROTEASE/AMYLASE 36,000 UNIT CAPSULE PO SCH (19:19)
[2023-06-12] MEDS: ACETAMINOPHEN 500 MG TABLET (FP) PO PRN (20:30)
[2023-06-12] MEDS: APIXABAN 5 MG TABLET PO SCH (21:23)
[2023-06-12] MEDS: CARVEDILOL 12.5 MG TABLET (FP) PO SCH (21:23)
[2023-06-12] MEDS ORDERED: HEPARIN NA (PORCINE) 5,000 UNITS/ML 1ML VIAL SQ SCH (22:00)
[2023-06-13] MEDS: SIMETHICONE 80 MG TAB.CHEW (FP) PO PRN ×2 (02:24→07:15)
[2023-06-13] MEDS: ACETAMINOPHEN 500 MG TABLET (FP) PO PRN (03:20)
[2023-06-13] MEDS ORDERED: diphenhydrAMINE HCL 25 MG CAPSULE (FP) PO ONE ×2 (03:47→21:18)
[2023-06-13] MEDS: INSULIN (NOVOLOG) ASPART 100 UNITS/ML 10ML VIAL SQ SCH ×5 (06:09→21:12)
[2023-06-13] MEDS: LIPASE/PROTEASE/AMYLASE 36,000 UNIT CAPSULE PO SCH ×3 (07:44→16:44)
[2023-06-13] MEDS: CARVEDILOL 12.5 MG TABLET (FP) PO SCH ×2 (09:33→21:07)
[2023-06-13] MEDS: PANTOPRAZOLE 40 MG TABLET PO SCH (09:33)
[2023-06-13] MEDS: FUROSEMIDE 40 MG TABLET (FP) PO SCH (09:33)
[2023-06-13] MEDS: APIXABAN 5 MG TABLET PO SCH ×2 (09:33→21:08)
[2023-06-13 11:14] LABS: BASO % 0.5 % (0-2.0); EOS % 2.5 % (0-4.5); HEMOGLOBIN 13.9 GM/dL (11.7-16.9); LYMPH % 23.7 % (8-40); MCH 31.3 pg (25.7-33.7); MCHC 33.8 g/dl (32.0-35.9); MEAN CELL VOLUME 92.6 fl (80-96); MEAN PLT VOLUME 8.5 fl (7.5-11.1); MONO % 8.9 % (3.8-10.2); NEUT % 64.4 % (42.8-82.8); PLATELET COUNT 158 10^3/uL (134-434); RBC 4.43 M/mm3 (4.00-5.60); RDW 14.3 % (11.9-15.9); WHITE BLOOD COUNT 7.4 K/mm3 (4.0-10.0)
[2023-06-13 11:15] LABS: POTASSIUM 3.9 mmol/L (3.5-5.1)
[2023-06-13 11:21] LABS: ALBUMIN 3.4 g/dl (3.4-5.0); BLOOD UREA NITROGEN 24.5 mg/dL (7-18); MAGNESIUM 2.7 mg/dL (1.8-2.4)
[2023-06-13 11:24] LABS: CREATININE 0.9 mg/dL (0.55-1.3)
[2023-06-13 11:25] LABS: BILIRUBIN,TOTAL 0.4 mg/dL (0.2-1); TOT PROT 6.9 g/dl (6.4-8.2)
[2023-06-13] MEDS: FLUTICASONE/UMECLIDIN/VILANTER(200-62.5-25 TRELEGY ELLIPTA) INAHLER IH SCH (13:44)
[2023-06-13 15:56] VITALS: RESP 18
[2023-06-13] MEDS: INSULIN ASPART SLIDING SCALE (NOVOLOG) 1 VIAL SQ SCH ×2 (16:25→21:13)
[2023-06-13] MEDS ORDERED: MAG HYDROX/AL HYDROX/SIMETH 30 ML UNIT-DOSE CUP PO PRN (17:22)
[2023-06-13] MEDS: morphine SULFATE 4 MG/ML VIAL IVPUSH PRN (21:07)
[2023-06-13] MEDS: POLYETHYLENE GLYCOL (HEALTHYLAX) 3350 17 GM PACKET PO SCH (21:08)
[2023-06-13] MEDS ORDERED: INSULIN (LEVEMIR) 100 UNITS/ML UNITS SQ SCH (22:00)
[2023-06-14] MEDS: morphine SULFATE 4 MG/ML VIAL IVPUSH PRN ×5 (03:10→21:46)
[2023-06-14] MEDS ORDERED: INSULIN (LEVEMIR) 100 UNITS/ML UNITS SQ ONE (05:48)
[2023-06-14] MEDS: POLYETHYLENE GLYCOL (HEALTHYLAX) 3350 17 GM PACKET PO SCH ×3 (05:59→21:48)
[2023-06-14] MEDS: INSULIN ASPART SLIDING SCALE (NOVOLOG) 1 VIAL SQ SCH ×4 (06:00→23:37)
[2023-06-14] MEDS: ACETAMINOPHEN 500 MG TABLET (FP) PO PRN ×2 (06:30→17:43)
[2023-06-14] MEDS: FUROSEMIDE 40 MG TABLET (FP) PO SCH (09:10)
[2023-06-14] MEDS: APIXABAN 5 MG TABLET PO SCH ×2 (09:10→21:48)
[2023-06-14] MEDS: CARVEDILOL 12.5 MG TABLET (FP) PO SCH ×2 (09:10→21:48)
[2023-06-14] MEDS: PANTOPRAZOLE 40 MG TABLET PO SCH (09:11)
[2023-06-14] MEDS: LIPASE/PROTEASE/AMYLASE 36,000 UNIT CAPSULE PO SCH ×3 (09:11→17:42)
[2023-06-14] MEDS: FLUTICASONE/UMECLIDIN/VILANTER(200-62.5-25 TRELEGY ELLIPTA) INAHLER IH SCH (09:11)
[2023-06-14 09:40] LABS: BASO % 0.6 % (0-2.0); EOS % 3.7 % (0-4.5); HEMATOCRIT 41.1 % (35.4-49); HEMOGLOBIN 13.7 GM/dL (11.7-16.9); MCH 31.3 pg (25.7-33.7); MCHC 33.4 g/dl (32.0-35.9); MEAN CELL VOLUME 93.8 fl (80-96); MEAN PLT VOLUME 8.3 fl (7.5-11.1); MONO % 9.4 % (3.8-10.2); NEUT % 58.3 % (42.8-82.8); PLATELET COUNT 140 10^3/uL (134-434); POTASSIUM 3.7 mmol/L (3.5-5.1); RBC 4.38 M/mm3 (4.00-5.60); RDW 13.9 % (11.9-15.9); WHITE BLOOD COUNT 7.2 K/mm3 (4.0-10.0)
[2023-06-14 09:42] LABS: ALBUMIN 3.2 g/dl (3.4-5.0); BLOOD UREA NITROGEN 22.3 mg/dL (7-18); CALCIUM 8.4 mg/dL (8.5-10.1)
[2023-06-14 09:46] LABS: CREATININE 1.1 mg/dL (0.55-1.3)
[2023-06-14 09:47] LABS: BILIRUBIN,TOTAL 0.5 mg/dL (0.2-1); TOT PROT 6.6 g/dl (6.4-8.2)
[2023-06-14 09:56] LABS: AMYLASE 73 U/L (25-115)
[2023-06-14] MEDS: SIMETHICONE 80 MG TAB.CHEW (FP) PO PRN ×2 (12:30→21:48)
[2023-06-14 13:41] VITALS: BMI 32.9
[2023-06-14] MEDS ORDERED: MINERAL OIL ENEMA 133 ML ENEMA RC ONE (20:22)
[2023-06-15] MEDS: morphine SULFATE 4 MG/ML VIAL IVPUSH PRN ×2 (02:08→08:01)
[2023-06-15] MEDS: POLYETHYLENE GLYCOL (HEALTHYLAX) 3350 17 GM PACKET PO SCH ×2 (06:21→13:10)
[2023-06-15] MEDS: INSULIN ASPART SLIDING SCALE (NOVOLOG) 1 VIAL SQ SCH ×2 (06:23→11:02)
[2023-06-15] MEDS: ACETAMINOPHEN 500 MG TABLET (FP) PO PRN ×2 (06:49→12:29)
[2023-06-15] MEDS: LIPASE/PROTEASE/AMYLASE 36,000 UNIT CAPSULE PO SCH ×2 (08:02→11:00)
[2023-06-15] MEDS: PANTOPRAZOLE 40 MG TABLET PO SCH (09:53)
[2023-06-15] MEDS: FUROSEMIDE 40 MG TABLET (FP) PO SCH (09:53)
[2023-06-15] MEDS: APIXABAN 5 MG TABLET PO SCH (09:53)
[2023-06-15] MEDS: CARVEDILOL 12.5 MG TABLET (FP) PO SCH (09:53)
[2023-06-15] MEDS: FLUTICASONE/UMECLIDIN/VILANTER(200-62.5-25 TRELEGY ELLIPTA) INAHLER IH SCH (10:05)
[2023-06-15] MEDS: SIMETHICONE 80 MG TAB.CHEW (FP) PO PRN (11:00)
[2023-06-15] MEDS ORDERED: ISOSORBIDE MONONITRATE 30 MG TAB.SR.24H (FP) PO SCH (12:00)
[2023-06-15] MEDS ORDERED: MINERAL OIL ENEMA 133 ML ENEMA RC ONE ×2 (12:15→21:00)
[2023-06-15] MEDS ORDERED: METOCLOPRAMIDE HCL INJECTION 10 MG/2 ML VIAL IVPUSH PRN (13:19)
[2023-06-15 13:46] VITALS: BP 147/67; PULSE 73; TEMP 98.5
[2023-06-15] MEDS ORDERED: METOCLOPRAMIDE HCL INJECTION 10 MG/2 ML VIAL IVPUSH ONE (14:00)
[2023-06-15] MEDS ORDERED: RIFAXIMIN 550 MG TABLET PO SCH (14:00)
[2023-06-15] MEDS ORDERED: SIMETHICONE 80 MG TAB.CHEW (FP) PO SCH (14:00)
== END 2023-06-15 14:35 | disposition home or self-care (01) ==
LOC: JER 00:18 → JERBED 15:44 → J5S 18:41
PROVIDERS: ADMIT Internal Medicine; ATTEND Internal Medicine
PROC: 3E033NZ Introduction of Analgesics, Hypnotics, Sedatives into Peripheral Vein, Percutaneous Approach (ICD-10-PCS; principal; 2023-06-12)
PROC: 3E033GC Introduction of Other Therapeutic Substance into Peripheral Vein, Percutaneous Approach (ICD-10-PCS; 2023-06-12)
PROC: 3E023GC Introduction of Other Therapeutic Substance into Muscle, Percutaneous Approach (ICD-10-PCS; 2023-06-12)
PROC: 3E013VG Introduction of Insulin into Subcutaneous Tissue, Percutaneous Approach (ICD-10-PCS; 2023-06-12)
PROC: 3E0333Z Introduction of Anti-inflammatory into Peripheral Vein, Percutaneous Approach (ICD-10-PCS; 2023-06-12)
DX: K31.84 Gastroparesis (principal); K29.70 Gastritis, unspecified, without bleeding; K52.9 Noninfective gastroenteritis and colitis, unspecified; K57.90 Diverticulosis of intestine, part unspecified, without perforation or abscess without bleeding; K21.9 Gastro-esophageal reflux disease without esophagitis; I25.10 Atherosclerotic heart disease of native coronary artery without angina pectoris; E11.43 Type 2 diabetes mellitus with diabetic autonomic (poly)neuropathy; I48.91 Unspecified atrial fibrillation; E11.610 Type 2 diabetes mellitus with diabetic neuropathic arthropathy; N17.9 Acute kidney failure, unspecified; I11.0 Hypertensive heart disease with heart failure; G20.A1 Parkinson's disease without dyskinesia, without mention of fluctuations; E03.9 Hypothyroidism, unspecified; J44.9 Chronic obstructive pulmonary disease, unspecified; E11.40 Type 2 diabetes mellitus with diabetic neuropathy, unspecified; G47.30 Sleep apnea, unspecified; G93.41 Metabolic encephalopathy; I50.9 Heart failure, unspecified; R10.9 Unspecified abdominal pain; N40.0 Benign prostatic hyperplasia without lower urinary tract symptoms; M54.9 Dorsalgia, unspecified; R78.81 Bacteremia; Z88.0 Allergy status to penicillin; R79.89 Other specified abnormal findings of blood chemistry; Z87.891 Personal history of nicotine dependence; K76.0 Fatty (change of) liver, not elsewhere classified; R11.2 Nausea with vomiting, unspecified; M54.16 Radiculopathy, lumbar region; K92.9 Disease of digestive system, unspecified; G89.29 Other chronic pain; Z91.148 Patient's other noncompliance with medication regimen for other reason; Z79.4 Long term (current) use of insulin
CPT/HCPCS: 36415; 71045-TC-FY; 74021-TC-FY; 74177-TC; 76705-TC; 80053; 81003; 82150; 82962; 83605; 83690; 83735; 84484; 85025; 85610; 85730; 86140; 86850; 86900; 86901; 87086; 93005; 93010; 96365; 96372; 96375; 96376; 99285-25; G0378

== ENCOUNTER 2023-06-16 02:01 | Emergency (ER) | payer OTHER ==
[2023-06-16 02:07] VITALS: BMI 33.2
[2023-06-16] MEDS ORDERED: ACETAMINOPHEN 1000 MG/100 ML BAG IVPB ONE (02:42)
[2023-06-16] MEDS ORDERED: ACETAMINOPHEN INJECTION 100 ML IVPB ONE (02:50)
[2023-06-16 03:13] LABS: BASO % 0.8 % (0-2.0); EOS % 1.6 % (0-4.5); HEMATOCRIT 44.1 % (35.4-49); HEMOGLOBIN 15.2 GM/dL (11.7-16.9); MCH 31.9 pg (25.7-33.7); MCHC 34.4 g/dl (32.0-35.9); MEAN CELL VOLUME 92.7 fl (80-96); MONO % 9.2 % (3.8-10.2); NEUT % 66.4 % (42.8-82.8); PLATELET COUNT 175 10^3/uL (134-434); RBC 4.75 M/mm3 (4.00-5.60); WHITE BLOOD COUNT 8.6 K/mm3 (4.0-10.0)
[2023-06-16] MEDS ORDERED: morphine SULFATE 4 MG/ML VIAL IVPUSH ONE ×2 (04:00→06:22)
[2023-06-16 04:54] LABS: POTASSIUM 4.1 mmol/L (3.5-5.1)
[2023-06-16 04:56] LABS: BLOOD UREA NITROGEN 25.7 mg/dL (7-18)
[2023-06-16 05:00] LABS: CREATININE 1.2 mg/dL (0.55-1.3)
[2023-06-16 05:02] LABS: BILIRUBIN,TOTAL 0.5 mg/dL (0.2-1); TOT PROT 7.8 g/dl (6.4-8.2)
[2023-06-16 05:19] LABS: CALCIUM 9.5 mg/dL (8.5-10.1)
[2023-06-16 06:45] VITALS: RESP 20
[2023-06-16 09:24] LABS: EPI CELLS 4 /uL (0-25.1); HYALINE CASTS 3 /uL (0-3.1); URINE APPEARANCE CLEAR; URINE BACTERIA 3 /uL (0-1359); URINE BILIRUBIN NEGATIVE (NEGATIVE); URINE COLOR YELLOW; URINE GLUCOSE (UA) 3+ (NEGATIVE); URINE KETONE 1+ (NEGATIVE); URINE LEUK ESTERASE NEGATIVE (NEGATIVE); URINE NITRITE NEGATIVE (NEGATIVE); URINE PROTEIN 2+ (NEGATIVE); URINE RBC 13 /uL (0-23.9); URINE UROBILINOGEN 0.2 mg/dL (0.2-1.0); URINE WBC 8 /uL (0-25.8)
[2023-06-16 11:16] VITALS: BP 169/86; PULSE 81; TEMP 98.2
== END 2023-06-16 11:17 | disposition home or self-care (01) ==
LOC: JER 02:01
PROC: 3E033NZ Introduction of Analgesics, Hypnotics, Sedatives into Peripheral Vein, Percutaneous Approach (ICD-10-PCS; principal; 2023-06-16)
PROC: 3E033GC Introduction of Other Therapeutic Substance into Peripheral Vein, Percutaneous Approach (ICD-10-PCS; 2023-06-16)
PROC: 3E033GC Introduction of Other Therapeutic Substance into Peripheral Vein, Percutaneous Approach (ICD-10-PCS; 2023-06-16)
DX: M54.50 Low back pain, unspecified (principal)
CPT/HCPCS: 36415; 71046-TC-FY; 72128-TC; 72131-TC; 80053; 81003; 84484; 85025; 87086; 93005; 93010; 99285-25

== ENCOUNTER 2023-06-21 19:08 | Inpatient (IN) | payer OTHER ==
[2023-06-21] MEDS ORDERED: traMADol HCL 50 MG TABLET ONE (21:54)
[2023-06-21] MEDS ORDERED: KETOROLAC TROMETHAMINE 30 MG/1 ML VIAL ONE (21:55)
[2023-06-21] MEDS ORDERED: METHOCARBAMOL 500 MG TABLET ONE (21:55)
[2023-06-21] MEDS ORDERED: ACETAMINOPHEN INJECTION 100 ML IVPB ONE (21:55)
[2023-06-21] MEDS ORDERED: LIDOCAINE 4% PATCH TP ONE (21:55)
[2023-06-21] MEDS: LIDOCAINE 5% TOPICAL PATCH TP ONE (22:16)
[2023-06-21] MEDS: traMADol HCL 50 MG TABLET PO ONE (22:17)
[2023-06-21] MEDS: KETOROLAC TROMETHAMINE 30 MG/1 ML VIAL IM ONE (22:17)
[2023-06-21] MEDS: ACETAMINOPHEN 1000 MG/100 ML BAG IVPB ONE (22:17)
[2023-06-21] MEDS: METHOCARBAMOL 500 MG TABLET PO ONE (22:17)
[2023-06-21] MEDS: LIDOCAINE PATCH REMOVAL MC SCH (22:18)
[2023-06-21 22:22] LABS: BASO % 0.8 % (0-2.0); HEMATOCRIT 50.9 % (35.4-49); HEMOGLOBIN 17.3 GM/dL (11.7-16.9); LYMPH % 20.4 % (8-40); MCH 31.5 pg (25.7-33.7); MEAN CELL VOLUME 92.7 fl (80-96); MEAN PLT VOLUME 8.4 fl (7.5-11.1); MONO % 8.5 % (3.8-10.2); NEUT % 68.3 % (42.8-82.8); PLATELET COUNT 209 10^3/uL (134-434); RBC 5.49 M/mm3 (4.00-5.60); RDW 14.2 % (11.9-15.9); WHITE BLOOD COUNT 8.8 K/mm3 (4.0-10.0)
[2023-06-21 22:25] LABS: EPI CELLS 6 /uL (0-25.1); HYALINE CASTS 2 /uL (0-3.1); PH,URINE 5.5 (5.0-8.0); URINE APPEARANCE CLEAR; URINE BACTERIA 0 /uL (0-1359); URINE BILIRUBIN NEGATIVE (NEGATIVE); URINE COLOR YELLOW; URINE GLUCOSE (UA) 3+ (NEGATIVE); URINE KETONE 2+ (NEGATIVE); URINE LEUK ESTERASE NEGATIVE (NEGATIVE); URINE NITRITE NEGATIVE (NEGATIVE); URINE PROTEIN 3+ (NEGATIVE); URINE RBC 9 /uL (0-23.9); URINE UROBILINOGEN 0.2 mg/dL (0.2-1.0); URINE WBC 2 /uL (0-25.8)
[2023-06-21 22:42] LABS: POTASSIUM 4.4 mmol/L (3.5-5.1)
[2023-06-21 22:44] LABS: CALCIUM 10.2 mg/dL (8.5-10.1)
[2023-06-21 22:45] LABS: ALBUMIN 4.3 g/dl (3.4-5.0); BLOOD UREA NITROGEN 49.8 mg/dL (7-18)
[2023-06-21 22:48] LABS: CREATININE 2.2 mg/dL (0.55-1.3)
[2023-06-21 22:50] LABS: BILIRUBIN,TOTAL 0.4 mg/dL (0.2-1); TOT PROT 8.4 g/dl (6.4-8.2)
[2023-06-22] MEDS: LACTATED RINGERS SOLUTION 1,000 ML/1,000 ML INFUS.BAG IV SCH ×2 (03:15→05:50)
[2023-06-22] MEDS: traMADol HCL 50 MG TABLET PO ONE (03:15)
[2023-06-22] MEDS ORDERED: KETOROLAC TROMETHAMINE 15 MG/ML VIAL ONE (04:19)
[2023-06-22] MEDS: ACETAMINOPHEN 1000 MG/100 ML BAG IVPB PRN (04:24)
[2023-06-22] MEDS: KETOROLAC TROMETHAMINE 15 MG/ML VIAL IM PRN (04:24)
[2023-06-22] MEDS: morphine CARPU-JECT 2 MG/1 ML DISP.SYRIN IM ONE (04:47)
[2023-06-22] MEDS: ACETAMINOPHEN 500 MG TABLET (FP) PO SCH (06:18)
[2023-06-22] MEDS: POLYETHYLENE GLYCOL (HEALTHYLAX) 3350 17 GM PACKET PO SCH (06:18)
[2023-06-22 07:40] LABS: BASO % 0.6 % (0-2.0); EOS % 1.4 % (0-4.5); HEMATOCRIT 47.7 % (35.4-49); HEMOGLOBIN 16.4 GM/dL (11.7-16.9); LYMPH % 18.8 % (8-40); MCHC 34.4 g/dl (32.0-35.9); MEAN CELL VOLUME 93.1 fl (80-96); MEAN PLT VOLUME 9.2 fl (7.5-11.1); MONO % 10.9 % (3.8-10.2); NEUT % 68.3 % (42.8-82.8); PLATELET COUNT 192 10^3/uL (134-434); RBC 5.13 M/mm3 (4.00-5.60); RDW 13.7 % (11.9-15.9); WHITE BLOOD COUNT 9.9 K/mm3 (4.0-10.0)
[2023-06-22 08:03] LABS: CREATININE 2.8 mg/dL (0.55-1.3)
[2023-06-22 08:04] LABS: ALBUMIN 4.2 g/dl (3.4-5.0); TOT PROT 8.1 g/dl (6.4-8.2)
[2023-06-22 08:05] LABS: BILIRUBIN,TOTAL 0.4 mg/dL (0.2-1)
[2023-06-22 08:06] LABS: BLOOD UREA NITROGEN 55.9 mg/dL (7-18)
[2023-06-22 08:07] LABS: MAGNESIUM 2.7 mg/dL (1.8-2.4)
[2023-06-22 08:08] LABS: CALCIUM 9.4 mg/dL (8.5-10.1)
[2023-06-22] MEDS: TAMSULOSIN HCL 0.4 MG CAP PO SCH (08:55)
[2023-06-22] MEDS: LIPASE/PROTEASE/AMYLASE 36,000 UNIT CAPSULE PO SCH (08:55)
[2023-06-22] MEDS ORDERED: INSULIN (NOVOLOG) ASPART 100 UNITS/ML 10ML VIAL ONE ×3 (10:57→18:59)
[2023-06-22] MEDS: amLODIPine BESYLATE 5 MG TABLET (FP) PO SCH (11:05)
[2023-06-22] MEDS: APIXABAN 5 MG TABLET PO SCH (11:05)
[2023-06-22] MEDS: buPROPion HCL 100 MG TABLET PO SCH (11:05)
[2023-06-22] MEDS: CARVEDILOL 12.5 MG TABLET (FP) PO SCH (11:05)
[2023-06-22] MEDS: INSULIN (LEVEMIR) 100 UNITS/ML UNITS SQ ONE (11:05)
[2023-06-22] MEDS: PANTOPRAZOLE 40 MG TABLET PO SCH (11:05)
[2023-06-22] MEDS: ISOSORBIDE MONONITRATE 30 MG TAB.SR.24H (FP) PO SCH (11:05)
[2023-06-22] MEDS: INSULIN ASPART SLIDING SCALE (NOVOLOG) 1 VIAL SQ SCH (11:05)
[2023-06-22] MEDS: RANOLAZINE E.R. 500 MG TABLET (FP) PO SCH (11:05)
[2023-06-22] MEDS ORDERED: traMADol HCL 50 MG TABLET ONE ×3 (11:07→22:25)
[2023-06-22] MEDS: traMADol HCL 50 MG TABLET PO PRN (11:08)
[2023-06-22] MEDS ORDERED: POLYETHYLENE GLYCOL (HEALTHYLAX) 3350 17 GM PACKET ONE ×2 (14:02→14:09)
[2023-06-22] MEDS ORDERED: ACETAMINOPHEN 500 MG TABLET (FP) ONE (14:04)
[2023-06-22] MEDS: ACETAMINOPHEN 1000 MG/100 ML BAG IVPB ONE (20:48)
[2023-06-22] MEDS ORDERED: APIXABAN 5 MG TABLET ONE (21:29)
[2023-06-22] MEDS ORDERED: CARVEDILOL 12.5 MG TABLET (FP) ONE (21:29)
[2023-06-22] MEDS ORDERED: ATORVASTATIN CA 80 MG TABLET (FP) ONE (21:30)
[2023-06-22] MEDS ORDERED: RANOLAZINE E.R. 500 MG TABLET (FP) ONE (21:30)
[2023-06-22] MEDS: ATORVASTATIN CA 80 MG TABLET (FP) PO SCH (21:39)
[2023-06-22] MEDS ORDERED: morphine SULFATE 4 MG/ML VIAL ONE (23:05)
[2023-06-23] MEDS ORDERED: POLYETHYLENE GLYCOL (HEALTHYLAX) 3350 17 GM PACKET ONE (00:47)
[2023-06-23] MEDS ORDERED: ACETAMINOPHEN 500 MG TABLET (FP) PO PRN (01:37)
[2023-06-23] MEDS ORDERED: traMADol HCL 50 MG TABLET ONE ×2 (04:43→11:43)
[2023-06-23 12:00] LABS: BASO % 0.6 % (0-2.0); EOS % 0.7 % (0-4.5); HEMATOCRIT 45.1 % (35.4-49); HEMOGLOBIN 15.6 GM/dL (11.7-16.9); LYMPH % 9.9 % (8-40); MCH 31.8 pg (25.7-33.7); MCHC 34.6 g/dl (32.0-35.9); MEAN CELL VOLUME 91.9 fl (80-96); MEAN PLT VOLUME 8.3 fl (7.5-11.1); NEUT % 82.8 % (42.8-82.8); PLATELET COUNT 166 10^3/uL (134-434); RBC 4.91 M/mm3 (4.00-5.60); WHITE BLOOD COUNT 8.7 K/mm3 (4.0-10.0)
[2023-06-23 12:26] LABS: POTASSIUM 4.4 mmol/L (3.5-5.1)
[2023-06-23 12:29] LABS: BLOOD UREA NITROGEN 50.5 mg/dL (7-18)
[2023-06-23 12:32] LABS: CREATININE 1.5 mg/dL (0.55-1.3)
[2023-06-23 12:33] LABS: BILIRUBIN,TOTAL 0.5 mg/dL (0.2-1); TOT PROT 7.8 g/dl (6.4-8.2)
[2023-06-23] MEDS ORDERED: INSULIN (NOVOLOG) ASPART 100 UNITS/ML 10ML VIAL ONE (15:06)
[2023-06-24] MEDS ORDERED: traMADol HCL 50 MG TABLET ONE (04:42)
[2023-06-24] MEDS ORDERED: POLYETHYLENE GLYCOL (HEALTHYLAX) 3350 17 GM PACKET ONE (05:31)
[2023-06-24] MEDS ORDERED: ACETAMINOPHEN 325 MG TABLET (FP) ONE (05:32)
[2023-06-24 07:14] LABS: POTASSIUM 4.4 mmol/L (3.5-5.1)
[2023-06-24 07:15] LABS: CALCIUM 9.5 mg/dL (8.5-10.1)
[2023-06-24 07:17] LABS: BLOOD UREA NITROGEN 26.8 mg/dL (7-18)
[2023-06-24 07:19] LABS: CREATININE 1.2 mg/dL (0.55-1.3)
[2023-06-24] MEDS ORDERED: TAMSULOSIN HCL 0.4 MG CAP ONE (08:04)
[2023-06-24 11:06] VITALS: BMI 32.3
[2023-06-24] MEDS: oxyCODONE HCL 5 MG TABLET PO PRN (13:10)
[2023-06-24] MEDS: SIMETHICONE 80 MG TAB.CHEW (FP) PO PRN (16:08)
[2023-06-24] MEDS: morphine SULFATE 4 MG/ML VIAL IVPUSH ONE (18:25)
[2023-06-25] MEDS: oxyCODONE HCL 5 MG TABLET PO ONE (10:21)
[2023-06-25] MEDS: ALBUTEROL SO4 0.083% IH SOL 2.5 MG/3 ML VIAL.NEB. NEB ONE (11:29)
[2023-06-25] MEDS: amLODIPine BESYLATE 5 MG TABLET (FP) PO ONE (14:49)
[2023-06-26] MEDS ORDERED: INSULIN (NOVOLOG) ASPART 100 UNITS/ML 10ML VIAL ONE ×2 (16:58→21:59)
[2023-06-26] MEDS: LORazepam 2 MG/ML SDV VIAL IVPUSH ONE (21:55)
[2023-06-27] MEDS ORDERED: INSULIN (NOVOLOG) ASPART 100 UNITS/ML 10ML VIAL ONE ×2 (17:55→21:17)
[2023-06-28 09:19] LABS: BASO % 0.3 % (0-2.0); HEMATOCRIT 44.2 % (35.4-49); MCH 31.6 pg (25.7-33.7); MCHC 33.9 g/dl (32.0-35.9); MEAN CELL VOLUME 93.3 fl (80-96); MEAN PLT VOLUME 8.2 fl (7.5-11.1); MONO % 9.6 % (3.8-10.2); NEUT % 81.1 % (42.8-82.8); PLATELET COUNT 196 10^3/uL (134-434); RBC 4.74 M/mm3 (4.00-5.60); RDW 13.9 % (11.9-15.9); WHITE BLOOD COUNT 12.8 K/mm3 (4.0-10.0)
[2023-06-28] MEDS ORDERED: HYDROmorphone HCl 2 MG/ML VIAL ONE (09:52)
[2023-06-28] MEDS ORDERED: DOCUSATE SODIUM 100 MG CAPSULE (FP) PO PRN (09:58)
[2023-06-28] MEDS ORDERED: oxyCODONE HCL 5 MG TABLET PO PRN (09:58)
[2023-06-28] MEDS: LORazepam 2 MG/ML SDV VIAL IVPUSH PRN (10:00)
[2023-06-28] MEDS: HYDROmorphone HCl 2 MG/ML VIAL IVPUSH ONE ×2 (10:24→12:22)
[2023-06-28 10:56] LABS: POTASSIUM 4.2 mmol/L (3.5-5.1)
[2023-06-28 10:58] LABS: BLOOD UREA NITROGEN 22.4 mg/dL (7-18)
[2023-06-28 11:01] LABS: CREATININE 1.1 mg/dL (0.55-1.3)
[2023-06-28 11:03] LABS: BILIRUBIN,TOTAL 0.7 mg/dL (0.2-1)
[2023-06-28 11:16] LABS: ALBUMIN 3.1 g/dl (3.4-5.0)
[2023-06-28] MEDS: ACETAMINOPHEN 1000 MG/100 ML BAG IVPB ONE (12:20)
[2023-06-28 13:50] LABS: COCAINE, UR NEGATIVE (NEGATIVE); METHADONE, UR NEGATIVE (NEGATIVE); PHENCYCLIDINE,URINE NEGATIVE (NEGATIVE); URINE AMPHETAMINES NEGATIVE (NEGATIVE); URINE BENZODIAZEPINES NEGATIVE (NEGATIVE)
[2023-06-28 13:51] LABS: OPIATES, URI POSITIVE (NEGATIVE); URINE BARBITURATES POSITIVE (NEGATIVE)
[2023-06-28] MEDS: CIPROFLOXACIN 0.3% EYE DROPS 5 ML BOTTLE OU SCH (17:11)
[2023-06-28] MEDS: CEFAZOLIN SODIUM 2 GM in DEXTROSE 5%-WATER 100 ML IVPB SCH (20:46)
[2023-06-28] MEDS ORDERED: INSULIN (NOVOLOG) ASPART 100 UNITS/ML 10ML VIAL ONE (21:30)
[2023-06-29] MEDS ORDERED: LACTATED RINGERS SOLUTION 1,000 ML/1,000 ML INFUS.BAG IV SCH (09:00)
[2023-06-29 09:54] LABS: ARTERIAL BLD GAS O2 SATURATION 99.5 % (95-98); ARTERIAL BLOOD GAS BASE EXCESS -1.6 mmol/L (-2-2); ARTERIAL BLOOD GAS PO2 216.5 mmHg (80-100); ARTERIAL BLOOD GAS pH 7.415 (7.350-7.450)
[2023-06-29 09:59] LABS: ALLENS TEST POSITIVE
[2023-06-29] MEDS: NALOXONE HCL 0.4 MG/ML VIAL IVPUSH ONE (10:18)
[2023-06-29] MEDS: DEXMEDETOMIDINE PREMIX 400 MCG/100 ML BAG IVPB SCH ×2 (10:20→23:15)
[2023-06-29] MEDS ORDERED: INSULIN (NOVOLOG) ASPART 100 UNITS/ML 10ML VIAL ONE (11:33)
[2023-06-29 11:46] LABS: BASO % 0.2 % (0-2.0); HEMATOCRIT 47.7 % (35.4-49); HEMOGLOBIN 15.8 GM/dL (11.7-16.9); LYMPH % 7.8 % (8-40); MCH 31.4 pg (25.7-33.7); MCHC 33.1 g/dl (32.0-35.9); MEAN CELL VOLUME 94.8 fl (80-96); MONO % 15.6 % (3.8-10.2); NEUT % 76.4 % (42.8-82.8); PLATELET COUNT 201 10^3/uL (134-434); RBC 5.03 M/mm3 (4.00-5.60); RDW 14.6 % (11.9-15.9)
[2023-06-29 12:10] LABS: ALBUMIN 2.9 g/dl (3.4-5.0); BLOOD UREA NITROGEN 32.7 mg/dL (7-18); CALCIUM 10.2 mg/dL (8.5-10.1); MAGNESIUM 2.9 mg/dL (1.8-2.4)
[2023-06-29 12:13] LABS: CREATININE 1.9 mg/dL (0.55-1.3); PHOSPHOROUS 4.6 mg/dL (2.5-4.9)
[2023-06-29 12:15] LABS: BILIRUBIN,TOTAL 0.5 mg/dL (0.2-1)
[2023-06-29] MEDS: VANCOMYCIN PREMIX 1.5 GM 1,500 MG/300 ML BAG IVPB ONE (12:37)
[2023-06-29] MEDS: LACTATED RINGERS SOLUTION 1,000 ML/1,000 ML INFUS.BAG IV SCH ×2 (12:37→13:12)
[2023-06-29] MEDS: MUPIROCIN 2% TOPICAL OINTMENT FOR DECOLONIZATION NS SCH (12:39)
[2023-06-29] MEDS ORDERED: CEFEPIME 2 GM in DEXTROSE 5%-WATER - 100 ML IVPB ONE (13:00)
[2023-06-29] MEDS ORDERED: METOPROLOL TARTRATE 5 MG/5 ML VIAL IVPUSH PRN (13:41)
[2023-06-29 14:37] LABS: EPI CELLS 6 /uL (0-25.1); HYALINE CASTS 44 /uL (0-3.1); URINE APPEARANCE TURBID; URINE BILIRUBIN 2+ (NEGATIVE); URINE COLOR DK YELLOW; URINE GLUCOSE (UA) 3+ (NEGATIVE); URINE KETONE 2+ (NEGATIVE); URINE LEUK ESTERASE 1+ (NEGATIVE); URINE NITRITE NEGATIVE (NEGATIVE); URINE PROTEIN 4+ (NEGATIVE); URINE WBC 717 /uL (0-25.8)
[2023-06-29 15:02] LABS: URINE BACTERIA 0 /uL (0-1359); URINE RBC 3554 /uL (0-23.9)
[2023-06-29 15:03] LABS: YEAST FEW
[2023-06-29 15:10] LABS: URINE UREA NITROGEN 604 MG/DL (350-1000)
[2023-06-29] MEDS: ENOXAPARIN NA (PORCINE) 120 MG/0.8 ML DISP.SYRIN SQ ONE ×2 (15:37→21:20)
[2023-06-29] MEDS: CEFEPIME 2 GM in DEXTROSE 5%-WATER - 100 ML IVPB SCH (15:38)
[2023-06-29] MEDS: CEFEPIME 1 GM in DEXTROSE 5%-WATER 100 ML IVPB SCH (15:39)
[2023-06-29] MEDS: SODIUM CHLORIDE 0.45% 1,000 ML IV SCH (17:46)
[2023-06-29] MEDS: CHLORHEXIDINE GLUCONATE 4% CLEANSER FOR DECOLONIZATION TP SCH (21:19)
[2023-06-29] MEDS: INSULIN (LEVEMIR) 100 UNITS/ML UNITS SQ SCH (21:19)
[2023-06-29] MEDS ORDERED: ENOXAPARIN NA (PORCINE) 100 MG/1 ML DISP.SYRIN SQ ONE (22:00)
[2023-06-29] MEDS ORDERED: DOCUSATE SODIUM 100 MG CAPSULE (FP) PO PRN (22:44)
[2023-06-29] MEDS ORDERED: SIMETHICONE 80 MG TAB.CHEW (FP) PO PRN (22:44)
[2023-06-29] MEDS: NALOXONE HCL (KLOXXADO) 8 MG SPRAY NS ONE (23:32)
[2023-06-30] MEDS: POLYETHYLENE GLYCOL (HEALTHYLAX) 3350 17 GM PACKET PO SCH (06:16)
[2023-06-30] MEDS: ACETAMINOPHEN 500 MG TABLET (FP) PO SCH (06:20)
[2023-06-30 06:29] LABS: BASO % 0.2 % (0-2.0); EOS % 0.1 % (0-4.5); HEMATOCRIT 44.4 % (35.4-49); HEMOGLOBIN 14.8 GM/dL (11.7-16.9); LYMPH % 13.2 % (8-40); MCH 31.8 pg (25.7-33.7); MCHC 33.4 g/dl (32.0-35.9); MEAN CELL VOLUME 95.1 fl (80-96); MEAN PLT VOLUME 8.1 fl (7.5-11.1); MONO % 13.8 % (3.8-10.2); NEUT % 72.7 % (42.8-82.8); PLATELET COUNT 128 10^3/uL (134-434); RBC 4.67 M/mm3 (4.00-5.60); RDW 14.2 % (11.9-15.9); WHITE BLOOD COUNT 9.6 K/mm3 (4.0-10.0)
[2023-06-30] MEDS: INSULIN ASPART SLIDING SCALE (NOVOLOG) 1 VIAL SQ SCH (06:45)
[2023-06-30 06:54] LABS: POTASSIUM 3.8 mmol/L (3.5-5.1)
[2023-06-30 06:56] LABS: ALBUMIN 2.6 g/dl (3.4-5.0)
[2023-06-30 06:57] LABS: BLOOD UREA NITROGEN 39.7 mg/dL (7-18)
[2023-06-30 06:58] LABS: CALCIUM 9.1 mg/dL (8.5-10.1)
[2023-06-30 06:59] LABS: CREATININE 1.6 mg/dL (0.55-1.3); MAGNESIUM 2.8 mg/dL (1.8-2.4); PHOSPHOROUS 3.7 mg/dL (2.5-4.9)
[2023-06-30 07:01] LABS: BILIRUBIN,TOTAL 0.5 mg/dL (0.2-1); TOT PROT 6.5 g/dl (6.4-8.2)
[2023-06-30] MEDS: LIPASE/PROTEASE/AMYLASE 36,000 UNIT CAPSULE PO SCH (09:04)
[2023-06-30] MEDS: TAMSULOSIN HCL 0.4 MG CAP PO SCH (09:04)
[2023-06-30] MEDS: APIXABAN 5 MG TABLET PO SCH (09:05)
[2023-06-30] MEDS: CARVEDILOL 12.5 MG TABLET (FP) PO SCH (09:05)
[2023-06-30] MEDS: amLODIPine BESYLATE 5 MG TABLET (FP) PO SCH (09:05)
[2023-06-30] MEDS: ISOSORBIDE MONONITRATE 30 MG TAB.SR.24H (FP) PO SCH (09:05)
[2023-06-30] MEDS: MUPIROCIN 2% TOPICAL OINTMENT FOR DECOLONIZATION NS SCH (09:05)
[2023-06-30] MEDS: PANTOPRAZOLE 40 MG TABLET PO SCH (09:06)
[2023-06-30] MEDS: RANOLAZINE E.R. 500 MG TABLET (FP) PO SCH (09:06)
[2023-06-30] MEDS: buPROPion HCL 100 MG TABLET PO SCH (09:07)
[2023-06-30] MEDS ORDERED: LUBIPROSTONE 24 MCG PO SCH (10:00)
[2023-06-30] MEDS ORDERED: fentaNYL CITRATE 250 MCG/5 ML VIAL ONE (11:09)
[2023-06-30] MEDS ORDERED: MIDAZOLAM HCL 2 MG/2 ML SINGLE DOSE VIAL ONE (11:09)
[2023-06-30] MEDS: DEXTROSE 5%-WATER - 1,000 ML IV SCH (11:57)
[2023-06-30] MEDS: MIDAZOLAM HCL 2 MG/2 ML SINGLE DOSE VIAL IVPUSH ONE ×3 (11:57→15:10)
[2023-06-30] MEDS: ENOXAPARIN NA (PORCINE) 120 MG/0.8 ML DISP.SYRIN SQ ONE ×2 (12:13→21:16)
[2023-06-30] MEDS: DEXTROSE 5%-NORMAL SALINE 1,000 ML IV SCH (12:13)
[2023-06-30] MEDS: ACETAMINOPHEN 1000 MG/100 ML BAG IVPB PRN (12:26)
[2023-06-30] MEDS: LUBIPROSTONE 24 MCG PO SCH (12:39)
[2023-06-30] MEDS: HALOPERIDOL LACTATE 5 MG/ML IM ONE (13:50)
[2023-06-30] MEDS ORDERED: ALBUTEROL SULFATE 0.021% (0.63 MG/3 ML) VIAL.NEB NEB SCH (14:36)
[2023-06-30 15:01] LABS: BF GLUCOSE (CSF ONLY) 118 mg/dL (40-70)
[2023-06-30] MEDS: CIPROFLOXACIN 0.3% EYE DROPS 5 ML BOTTLE OU SCH ×2 (15:23→15:31)
[2023-06-30] MEDS: ALBUTEROL SO4 0.083% IH SOL 2.5 MG/3 ML VIAL.NEB. NEB SCH (15:42)
[2023-06-30 15:57] LABS: CSF COLOR RED (COLORLESS)
[2023-06-30 16:02] LABS: CSF APPEARANCE BLOODY (CLEAR)
[2023-06-30 16:06] LABS: CSF WBC 1750 mm3 (0-5)
[2023-06-30] MEDS: ACETYLCYSTEINE 20% 200MG/ML 4 ML VIAL *FOR ORAL / INH USE ONLY NEB SCH (20:05)
[2023-06-30] MEDS: CHLORHEXIDINE GLUCONATE 4% CLEANSER FOR DECOLONIZATION TP SCH (21:16)
[2023-06-30] MEDS: INSULIN (LEVEMIR) 100 UNITS/ML UNITS SQ SCH (21:16)
[2023-06-30] MEDS: ATORVASTATIN CA 80 MG TABLET (FP) PO SCH (21:16)
[2023-07-01 07:01] LABS: BASO % 0.1 % (0-2.0); EOS % 0.3 % (0-4.5); HEMATOCRIT 43.4 % (35.4-49); HEMOGLOBIN 14.2 GM/dL (11.7-16.9); LYMPH % 10.8 % (8-40); MCH 31.4 pg (25.7-33.7); MCHC 32.7 g/dl (32.0-35.9); MEAN CELL VOLUME 96.1 fl (80-96); MEAN PLT VOLUME 8.2 fl (7.5-11.1); MONO % 8.8 % (3.8-10.2); PLATELET COUNT 98 10^3/uL (134-434); RBC 4.52 M/mm3 (4.00-5.60); RDW 14.4 % (11.9-15.9); WHITE BLOOD COUNT 8.4 K/mm3 (4.0-10.0)
[2023-07-01 07:12] LABS: POTASSIUM 4.5 mmol/L (3.5-5.1)
[2023-07-01 07:13] LABS: INR 1.62 (0.83-1.09); PROTHROMBIN TIME (PATIENT) 18.7 SEC (9.7-13.0)
[2023-07-01 07:16] LABS: ACTIVATED PTT 30.7 SECONDS (25.2-36.5)
[2023-07-01 07:20] LABS: BLOOD UREA NITROGEN 33.6 mg/dL (7-18); CALCIUM 9.9 mg/dL (8.5-10.1)
[2023-07-01 07:21] LABS: ALBUMIN 2.5 g/dl (3.4-5.0)
[2023-07-01 07:23] LABS: PHOSPHOROUS 2.6 mg/dL (2.5-4.9)
[2023-07-01 07:24] LABS: CREATININE 1.2 mg/dL (0.55-1.3); TOT PROT 6.5 g/dl (6.4-8.2)
[2023-07-01 07:25] LABS: BILIRUBIN,TOTAL 0.5 mg/dL (0.2-1)
[2023-07-01] MEDS: DEXTROSE 5%-0.45% SALINE 1,000 ML IV SCH (09:36)
[2023-07-01] MEDS: DEXTROSE 5%-WATER - 1,000 ML IV SCH (10:23)
[2023-07-01] MEDS: HALOPERIDOL LACTATE 5 MG/ML IM PRN (12:50)
[2023-07-01] MEDS ORDERED: INSULIN (NOVOLOG) ASPART 100 UNITS/ML 10ML VIAL ONE ×2 (17:53→21:38)
[2023-07-01 18:20] LABS: POTASSIUM 4.1 mmol/L (3.5-5.1)
[2023-07-01 18:22] LABS: ALBUMIN 2.4 g/dl (3.4-5.0); CALCIUM 9.1 mg/dL (8.5-10.1)
[2023-07-01 18:23] LABS: BLOOD UREA NITROGEN 29.7 mg/dL (7-18)
[2023-07-01 18:26] LABS: CREATININE 1.1 mg/dL (0.55-1.3)
[2023-07-01 18:27] LABS: BILIRUBIN,TOTAL 0.5 mg/dL (0.2-1)
[2023-07-02] MEDS ORDERED: INSULIN (NOVOLOG) ASPART 100 UNITS/ML 10ML VIAL ONE ×3 (06:22→21:17)
[2023-07-02 06:58] LABS: BASO % 0.1 % (0-2.0); EOS % 1.1 % (0-4.5); HEMATOCRIT 43.3 % (35.4-49); HEMOGLOBIN 14.6 GM/dL (11.7-16.9); LYMPH % 11.1 % (8-40); MCH 32.1 pg (25.7-33.7); MCHC 33.8 g/dl (32.0-35.9); MEAN CELL VOLUME 94.9 fl (80-96); MEAN PLT VOLUME 8.6 fl (7.5-11.1); MONO % 7.5 % (3.8-10.2); NEUT % 80.2 % (42.8-82.8); PLATELET COUNT 98 10^3/uL (134-434); RBC 4.56 M/mm3 (4.00-5.60); RDW 14.1 % (11.9-15.9); WHITE BLOOD COUNT 9.8 K/mm3 (4.0-10.0)
[2023-07-02 07:13] LABS: POTASSIUM 3.6 mmol/L (3.5-5.1)
[2023-07-02 07:17] LABS: ALBUMIN 2.4 g/dl (3.4-5.0); CALCIUM 9.2 mg/dL (8.5-10.1)
[2023-07-02 07:18] LABS: BLOOD UREA NITROGEN 26.3 mg/dL (7-18); MAGNESIUM 2.9 mg/dL (1.8-2.4)
[2023-07-02 07:20] LABS: PHOSPHOROUS 1.6 mg/dL (2.5-4.9)
[2023-07-02 07:21] LABS: CREATININE 1.1 mg/dL (0.55-1.3)
[2023-07-02 07:22] LABS: BILIRUBIN,TOTAL 0.4 mg/dL (0.2-1); TOT PROT 6.4 g/dl (6.4-8.2)
[2023-07-02] MEDS: APIXABAN 5 MG TABLET PO SCH (12:23)
[2023-07-02] MEDS: hydrALAZINE HCL 20 MG/ML VIAL IVPUSH PRN (15:00)
[2023-07-02] MEDS ORDERED: TRIMETHOBENZAMIDE HCL 200MG/2ML INJ IM PRN (15:26)
[2023-07-02] MEDS: VANCOMYCIN 1,000 MG in DEXTROSE 5%-WATER - 250 ML IVPB ONE (19:52)
[2023-07-02] MEDS: NALOXONE HCL (KLOXXADO) 8 MG SPRAY NS ONE (19:54)
[2023-07-02] MEDS: ENOXAPARIN NA (PORCINE) 100 MG/1 ML DISP.SYRIN SQ SCH (20:13)
[2023-07-02] MEDS: ENOXAPARIN NA (PORCINE) 100 MG/1 ML DISP.SYRIN SQ ONE (20:14)
[2023-07-02] MEDS: LIDOCAINE PATCH REMOVAL MC SCH (21:23)
[2023-07-03 07:45] LABS: BASO % 0.1 % (0-2.0); EOS % 2.5 % (0-4.5); HEMATOCRIT 38.9 % (35.4-49); HEMOGLOBIN 13.1 GM/dL (11.7-16.9); LYMPH % 10.4 % (8-40); MCH 31.7 pg (25.7-33.7); MCHC 33.7 g/dl (32.0-35.9); MEAN PLT VOLUME 8.6 fl (7.5-11.1); MONO % 7.1 % (3.8-10.2); NEUT % 79.9 % (42.8-82.8); PLATELET COUNT 100 10^3/uL (134-434); RBC 4.14 M/mm3 (4.00-5.60)
[2023-07-03 07:58] LABS: CALCIUM 8.2 mg/dL (8.5-10.1)
[2023-07-03 07:59] LABS: ALBUMIN 2.1 g/dl (3.4-5.0); BLOOD UREA NITROGEN 14.5 mg/dL (7-18); MAGNESIUM 2.6 mg/dL (1.8-2.4)
[2023-07-03 08:02] LABS: CREATININE 0.7 mg/dL (0.55-1.3)
[2023-07-03 08:03] LABS: BILIRUBIN,TOTAL 0.7 mg/dL (0.2-1); TOT PROT 5.3 g/dl (6.4-8.2)
[2023-07-03] MEDS: LIDOCAINE 4% PATCH TP SCH (09:55)
[2023-07-03] MEDS: NAPH,MB-DB/K PH,MBDB POWDER PACKET PO ONE (21:25)
[2023-07-03] MEDS: POTASSIUM CHLORIDE ORAL LIQUID 20 MEQ/15 ML PO ONE (21:25)
[2023-07-04] MEDS: LORazepam 2 MG/ML SDV VIAL IVPUSH PRN (01:13)
[2023-07-04] MEDS ORDERED: INSULIN (NOVOLOG) ASPART 100 UNITS/ML 10ML VIAL ONE ×3 (03:15→21:28)
[2023-07-04] MEDS ORDERED: DEXMEDETOMIDINE PREMIX 400 MCG/100 ML BAG IVPB SCH (07:36)
[2023-07-04] MEDS ORDERED: DOCUSATE SODIUM 100 MG CAPSULE (FP) PO PRN (07:36)
[2023-07-04] MEDS ORDERED: hydrALAZINE HCL 20 MG/ML VIAL IVPUSH PRN (07:56)
[2023-07-04] MEDS: ALBUTEROL SO4 0.083% IH SOL 2.5 MG/3 ML VIAL.NEB. NEB SCH (08:02)
[2023-07-04] MEDS: ACETYLCYSTEINE 20% 200MG/ML 4 ML VIAL *FOR ORAL / INH USE ONLY NEB SCH (08:02)
[2023-07-04] MEDS ORDERED: SIMETHICONE 80 MG TAB.CHEW (FP) PO PRN (08:03)
[2023-07-04] MEDS: LIPASE/PROTEASE/AMYLASE 36,000 UNIT CAPSULE PO SCH (08:49)
[2023-07-04] MEDS: TAMSULOSIN HCL 0.4 MG CAP PO SCH (08:49)
[2023-07-04] MEDS: ISOSORBIDE MONONITRATE 30 MG TAB.SR.24H (FP) PO SCH (10:47)
[2023-07-04] MEDS: RANOLAZINE E.R. 500 MG TABLET (FP) PO SCH (10:47)
[2023-07-04] MEDS: PANTOPRAZOLE 40 MG TABLET PO SCH (10:47)
[2023-07-04] MEDS: APIXABAN 5 MG TABLET PO SCH (10:48)
[2023-07-04] MEDS: CIPROFLOXACIN 0.3% EYE DROPS 5 ML BOTTLE OU SCH (10:49)
[2023-07-04] MEDS: CARVEDILOL 12.5 MG TABLET (FP) PO SCH (10:50)
[2023-07-04] MEDS: amLODIPine BESYLATE 5 MG TABLET (FP) PO SCH (10:50)
[2023-07-04] MEDS: LIDOCAINE 5% TOPICAL PATCH TP SCH (10:51)
[2023-07-04] MEDS: buPROPion HCL 100 MG TABLET PO SCH (10:51)
[2023-07-04] MEDS: INSULIN ASPART SLIDING SCALE (NOVOLOG) 1 VIAL SQ SCH (12:28)
[2023-07-04] MEDS: MUPIROCIN 2% TOPICAL OINTMENT FOR DECOLONIZATION NS SCH (12:48)
[2023-07-04] MEDS: LUBIPROSTONE 24 MCG PO SCH (12:48)
[2023-07-04] MEDS: POLYETHYLENE GLYCOL (HEALTHYLAX) 3350 17 GM PACKET PO SCH (14:21)
[2023-07-04 14:33] VITALS: RESP 18
[2023-07-04] MEDS: ATORVASTATIN CA 80 MG TABLET (FP) PO SCH (21:32)
[2023-07-04] MEDS: INSULIN (LEVEMIR) 100 UNITS/ML UNITS SQ SCH (21:34)
[2023-07-04] MEDS: LIDOCAINE PATCH REMOVAL MC SCH (21:36)
[2023-07-04] MEDS ORDERED: CHLORHEXIDINE GLUCONATE 4% CLEANSER FOR DECOLONIZATION TP SCH (22:00)
[2023-07-05 10:03] LABS: POTASSIUM 3.4 mmol/L (3.5-5.1)
[2023-07-05 10:32] LABS: CALCIUM 8.8 mg/dL (8.5-10.1)
[2023-07-05 10:34] LABS: BLOOD UREA NITROGEN 9.6 mg/dL (7-18)
[2023-07-05 10:37] LABS: CREATININE 0.7 mg/dL (0.55-1.3)
[2023-07-05] MEDS ORDERED: INSULIN (NOVOLOG) ASPART 100 UNITS/ML 10ML VIAL ONE (11:50)
[2023-07-05] MEDS: oxyCODONE HCL 5 MG TABLET PO PRN (22:26)
[2023-07-06] MEDS ORDERED: INSULIN (LEVEMIR) 100 UNITS/ML UNITS SQ ONE (05:20)
[2023-07-06] MEDS ORDERED: INSULIN (NOVOLOG) ASPART 100 UNITS/ML 10ML VIAL ONE ×4 (05:20→21:17)
[2023-07-06 09:38] LABS: HEMATOCRIT 37.3 % (35.4-49); MCH 32.4 pg (25.7-33.7); MCHC 34.9 g/dl (32.0-35.9); MEAN CELL VOLUME 92.9 fl (80-96); MEAN PLT VOLUME 8.5 fl (7.5-11.1); PLATELET COUNT 127 10^3/uL (134-434); RBC 4.02 M/mm3 (4.00-5.60); RDW 14.3 % (11.9-15.9)
[2023-07-06 10:12] LABS: POTASSIUM 3.6 mmol/L (3.5-5.1)
[2023-07-06 10:18] LABS: ALBUMIN 2.3 g/dl (3.4-5.0); BLOOD UREA NITROGEN 6.5 mg/dL (7-18)
[2023-07-06 10:20] LABS: CREATININE 0.7 mg/dL (0.55-1.3)
[2023-07-06 10:21] LABS: BILIRUBIN,TOTAL 0.4 mg/dL (0.2-1); TOT PROT 5.6 g/dl (6.4-8.2)
[2023-07-06 10:23] LABS: CALCIUM 8.5 mg/dL (8.5-10.1)
[2023-07-07] MEDS ORDERED: INSULIN (NOVOLOG) ASPART 100 UNITS/ML 10ML VIAL ONE ×4 (05:16→21:46)
[2023-07-07] MEDS: oxyCODONE HCL 5 MG TABLET PO PRN (18:14)
[2023-07-07] MEDS: POTASSIUM CHLORIDE TABS 10 MEQ TABLET.ER (FP) PO SCH (21:49)
[2023-07-08 06:11] VITALS: BP 135/70; PULSE 65; TEMP 97.7
[2023-07-08] MEDS ORDERED: INSULIN (NOVOLOG) ASPART 100 UNITS/ML 10ML VIAL ONE (06:22)
== END 2023-07-08 11:52 | DRG 871 ==
LOC: JER 19:08 → JERBED 06-22 00:04 → J7W 06-24 09:13 → JICU 06-29 09:25 → OBSVTOIN 06-29 10:28 → J8W 07-03 23:19
PROVIDERS: ADMIT Internal Medicine; ATTEND Family Medicine
PROC: 009U3ZZ Drainage of Spinal Canal, Percutaneous Approach (ICD-10-PCS; principal; 2023-06-30)
DX: A41.89 Other specified sepsis (principal); G92.9 Unspecified toxic encephalopathy; J69.0 Pneumonitis due to inhalation of food and vomit; J96.01 Acute respiratory failure with hypoxia; E87.0 Hyperosmolality and hypernatremia; R65.20 Severe sepsis without septic shock; E11.40 Type 2 diabetes mellitus with diabetic neuropathy, unspecified; R26.81 Unsteadiness on feet; I48.0 Paroxysmal atrial fibrillation; I25.10 Atherosclerotic heart disease of native coronary artery without angina pectoris; J44.9 Chronic obstructive pulmonary disease, unspecified; G20.A1 Parkinson's disease without dyskinesia, without mention of fluctuations; K76.0 Fatty (change of) liver, not elsewhere classified; M48.062 Spinal stenosis, lumbar region with neurogenic claudication; K21.9 Gastro-esophageal reflux disease without esophagitis; K57.90 Diverticulosis of intestine, part unspecified, without perforation or abscess without bleeding; E83.52 Hypercalcemia; E11.65 Type 2 diabetes mellitus with hyperglycemia; K59.00 Constipation, unspecified; R29.6 Repeated falls; E78.5 Hyperlipidemia, unspecified; E11.51 Type 2 diabetes mellitus with diabetic peripheral angiopathy without gangrene; E66.9 Obesity, unspecified; Z68.28 Body mass index [BMI] 28.0-28.9, adult
CPT/HCPCS: 0241U-QW; 36415; 36600; 70450-TC; 71045-TC-FY; 74176-TC; 76775-TC; 80048; 80053; 80307; 81003; 82140; 82550; 82553; 82570; 82803; 82945; 82962; 83605; 83735; 83970; 84100; 84156; 84157; 84300; 84484; 85025; 85027; 85610; 85730; 86592; 86694; 86735; 86765; 86787; 86788; 86789; 86850; 86900; 86901; 87040; 87070; 87081; 87086; 87205; 87529; 87635; 87899; 93005; 93010; 94640; 97116-GP; 97161-GP; 99285-25; G0378; J0131

== ENCOUNTER 2023-08-12 11:15 | Inpatient (IN) | payer OTHER, BC ==
[2023-08-12] MEDS ORDERED: ACETAMINOPHEN INJECTION 100 ML IVPB ONE (12:03)
[2023-08-12] MEDS ORDERED: morphine SULFATE 4 MG/ML VIAL ONE ×2 (12:03→19:36)
[2023-08-12] MEDS: ACETAMINOPHEN 1000 MG/100 ML BAG IVPB ONE (12:19)
[2023-08-12] MEDS: SODIUM CHLORIDE 1,000 ML IV STA (12:19)
[2023-08-12] MEDS: morphine CARPU-JECT 4 MG/1 ML DISP.SYRIN IVPUSH ONE (12:19)
[2023-08-12 12:44] LABS: BASO % 0.7 % (0-2.0); EOS % 1.2 % (0-4.5); HEMATOCRIT 42.2 % (35.4-49); HEMOGLOBIN 14.4 GM/dL (11.7-16.9); LYMPH % 21.8 % (8-40); MCH 31.8 pg (25.7-33.7); MEAN CELL VOLUME 93.5 fl (80-96); MEAN PLT VOLUME 7.8 fl (7.5-11.1); MONO % 7.3 % (3.8-10.2); PLATELET COUNT 229 10^3/uL (134-434); RBC 4.52 M/mm3 (4.00-5.60); RDW 13.9 % (11.9-15.9); WHITE BLOOD COUNT 6.8 K/mm3 (4.0-10.0)
[2023-08-12 12:52] LABS: INR 1.29 (0.83-1.09); PROTHROMBIN TIME (PATIENT) 14.9 SEC (9.7-13.0)
[2023-08-12 12:55] LABS: ACTIVATED PTT 39.7 SECONDS (25.2-36.5)
[2023-08-12 12:56] LABS: POTASSIUM 3.3 mmol/L (3.5-5.1)
[2023-08-12 12:58] LABS: CALCIUM 10.1 mg/dL (8.5-10.1)
[2023-08-12 12:59] LABS: ALBUMIN 3.4 g/dl (3.4-5.0); BLOOD UREA NITROGEN 14.6 mg/dL (7-18)
[2023-08-12 13:02] LABS: CREATININE 0.7 mg/dL (0.55-1.3)
[2023-08-12 13:03] LABS: BILIRUBIN,TOTAL 0.6 mg/dL (0.2-1); TOT PROT 7.1 g/dl (6.4-8.2)
[2023-08-12] MEDS ORDERED: POTASSIUM CHLORIDE ORAL LIQUID 20 MEQ/15 ML ONE (15:07)
[2023-08-12] MEDS ORDERED: HYDROmorphone HCl 2 MG/ML VIAL ONE (15:08)
[2023-08-12] MEDS: HYDROmorphone HCl 2 MG/ML VIAL IVPUSH ONE (15:55)
[2023-08-12] MEDS: POTASSIUM CHLORIDE ORAL LIQUID 20 MEQ/15 ML PO ONE (15:55)
[2023-08-12] MEDS: morphine SULFATE 4 MG/ML VIAL IVPUSH PRN (19:38)
[2023-08-12] MEDS ORDERED: APIXABAN 5 MG TABLET PO SCH (22:00)
[2023-08-12] MEDS ORDERED: CARVEDILOL 12.5 MG TABLET (FP) ONE (22:19)
[2023-08-12] MEDS: LIPASE/PROTEASE/AMYLASE 36,000 UNIT CAPSULE PO SCH (22:24)
[2023-08-12] MEDS: CARVEDILOL 12.5 MG TABLET (FP) PO SCH (22:24)
[2023-08-13] MEDS ORDERED: ONDANSETRON 4 MG/2 ML VIAL ONE (00:20)
[2023-08-13] MEDS: ONDANSETRON 4 MG/2 ML VIAL IVPUSH ONE (00:50)
[2023-08-13] MEDS ORDERED: morphine SULFATE 4 MG/ML VIAL ONE ×2 (01:24→05:12)
[2023-08-13] MEDS ORDERED: ACETAMINOPHEN INJECTION 100 ML IVPB ONE ×2 (01:34→11:00)
[2023-08-13] MEDS: ACETAMINOPHEN 1000 MG/100 ML BAG IVPB PRN (01:43)
[2023-08-13 07:58] LABS: BASO % 0.8 % (0-2.0); EOS % 1.1 % (0-4.5); HEMATOCRIT 40.6 % (35.4-49); HEMOGLOBIN 13.9 GM/dL (11.7-16.9); MCH 32.1 pg (25.7-33.7); MCHC 34.2 g/dl (32.0-35.9); MEAN CELL VOLUME 93.9 fl (80-96); MEAN PLT VOLUME 7.8 fl (7.5-11.1); MONO % 7.2 % (3.8-10.2); NEUT % 73.9 % (42.8-82.8); PLATELET COUNT 207 10^3/uL (134-434); RBC 4.32 M/mm3 (4.00-5.60); RDW 14.1 % (11.9-15.9); WHITE BLOOD COUNT 9.1 K/mm3 (4.0-10.0)
[2023-08-13 08:10] LABS: POTASSIUM 3.2 mmol/L (3.5-5.1)
[2023-08-13 08:14] LABS: ALBUMIN 3.4 g/dl (3.4-5.0); BLOOD UREA NITROGEN 12.1 mg/dL (7-18); CALCIUM 9.6 mg/dL (8.5-10.1); MAGNESIUM 2.3 mg/dL (1.8-2.4)
[2023-08-13 08:17] LABS: CREATININE 0.6 mg/dL (0.55-1.3); PHOSPHOROUS 3.4 mg/dL (2.5-4.9)
[2023-08-13 08:18] LABS: BILIRUBIN,TOTAL 0.4 mg/dL (0.2-1); TOT PROT 6.8 g/dl (6.4-8.2)
[2023-08-13] MEDS ORDERED: TAMSULOSIN HCL 0.4 MG CAP ONE (09:14)
[2023-08-13] MEDS: TAMSULOSIN HCL 0.4 MG CAP PO SCH (09:20)
[2023-08-13] MEDS ORDERED: ATORVASTATIN CA 80 MG TABLET (FP) ONE (10:50)
[2023-08-13] MEDS: amLODIPine BESYLATE 5 MG TABLET (FP) PO SCH (10:50)
[2023-08-13] MEDS: ISOSORBIDE MONONITRATE 30 MG TAB.SR.24H (FP) PO SCH (10:50)
[2023-08-13] MEDS: ATORVASTATIN CA 80 MG TABLET (FP) PO SCH (10:55)
[2023-08-13] MEDS: RIFAXIMIN 550 MG TABLET PO SCH (17:00)
[2023-08-13] MEDS: POTASSIUM CHLORIDE TABS 20 MEQ TABLET.ER (FP) PO ONE (17:02)
[2023-08-13] MEDS: ACETAMINOPHEN 1000 MG/100 ML BAG IVPB ONE (18:30)
[2023-08-13] MEDS: APIXABAN 5 MG TABLET PO SCH (22:26)
[2023-08-14 08:31] LABS: EPI CELLS 29 /uL (0-25.1); HYALINE CASTS 1 /uL (0-3.1); PH,URINE 5.5 (5.0-8.0); URINE APPEARANCE TURBID; URINE BACTERIA 9 /uL (0-1359); URINE BILIRUBIN NEGATIVE (NEGATIVE); URINE COLOR YELLOW; URINE GLUCOSE (UA) 3+ (NEGATIVE); URINE KETONE NEGATIVE (NEGATIVE); URINE LEUK ESTERASE 2+ (NEGATIVE); URINE NITRITE NEGATIVE (NEGATIVE); URINE PROTEIN 2+ (NEGATIVE); URINE RBC 61 /uL (0-23.9); URINE UROBILINOGEN 0.2 mg/dL (0.2-1.0); URINE WBC 4201 /uL (0-25.8)
[2023-08-14 08:32] LABS: YEAST NEGATIVE (NEGATIVE)
[2023-08-14] MEDS: ACETAMINOPHEN 1000 MG/100 ML BAG IVPB PRN (09:03)
[2023-08-14] MEDS: PANTOPRAZOLE 40 MG TABLET PO SCH (12:53)
[2023-08-15] MEDS: ONDANSETRON 4 MG/2 ML VIAL IVPUSH ONE (07:40)
[2023-08-15 08:03] LABS: HEMATOCRIT 37.9 % (35.4-49); MCHC 34.2 g/dl (32.0-35.9); MEAN CELL VOLUME 93.5 fl (80-96); MEAN PLT VOLUME 7.9 fl (7.5-11.1); PLATELET COUNT 193 10^3/uL (134-434); RBC 4.06 M/mm3 (4.00-5.60); RDW 13.7 % (11.9-15.9); WHITE BLOOD COUNT 5.4 K/mm3 (4.0-10.0)
[2023-08-15 08:28] LABS: POTASSIUM 3.6 mmol/L (3.5-5.1)
[2023-08-15 08:35] LABS: CALCIUM 9.1 mg/dL (8.5-10.1)
[2023-08-15 08:36] LABS: ALBUMIN 3.1 g/dl (3.4-5.0); BLOOD UREA NITROGEN 7.9 mg/dL (7-18)
[2023-08-15 08:39] LABS: CREATININE 0.6 mg/dL (0.55-1.3)
[2023-08-15 08:41] LABS: BILIRUBIN,TOTAL 0.5 mg/dL (0.2-1); TOT PROT 6.2 g/dl (6.4-8.2)
[2023-08-15] MEDS: Methylnaltrexone Bromide 12 MG/0.6 ML KIT SQ SCH (11:15)
[2023-08-15] MEDS ORDERED: ACETAMINOPHEN 1000 MG/100 ML BAG IVPB ONE (13:15)
[2023-08-15] MEDS: ACETAMINOPHEN 1000 MG/100 ML BAG IVPB ONE (13:50)
[2023-08-15] MEDS: morphine SULFATE 4 MG/ML VIAL IVPUSH PRN (21:04)
[2023-08-16] MEDS: ACETAMINOPHEN 1000 MG/100 ML BAG IVPB PRN (00:09)
[2023-08-16] MEDS: DEXTROSE 5%-NORMAL SALINE 1,000 ML IV SCH (06:25)
[2023-08-16 07:06] LABS: CARCINOEMBRYONIC ANTIGEN 2.4 ng/mL (0.0-4.7)
[2023-08-17] MEDS: ACETAMINOPHEN 1000 MG/100 ML BAG IVPB PRN ×2 (01:44→11:20)
[2023-08-17] MEDS ORDERED: BUPIVACAINE HCL/PF 0.25% (2.5MG/ML) 10 ML VIAL ONE (07:46)
[2023-08-17] MEDS ORDERED: INDOCYANINE GREEN 25 MG/10 ML VIAL IVPUSH ONE (07:46)
[2023-08-17] MEDS ORDERED: cefOXitin SODIUM 2 GM VIAL (RESTRICTED TO ID) IVPB ONE (07:47)
[2023-08-17] MEDS ORDERED: HEPARIN NA (PORCINE) 5,000 UNITS/ML 1ML VIAL ONE (07:47)
[2023-08-17] MEDS ORDERED: oxyCODONE HCL 5 MG TABLET PO PRN ×3 (08:12→11:10)
[2023-08-17] MEDS ORDERED: ONDANSETRON 4 MG/2 ML VIAL IVPUSH PRN ×2 (08:12→11:10)
[2023-08-17] MEDS ORDERED: MIDAZOLAM HCL 2 MG/2 ML SINGLE DOSE VIAL ONE (08:20)
[2023-08-17] MEDS ORDERED: PROPOFOL 40 ML ONE (08:20)
[2023-08-17] MEDS ORDERED: FENTANYL CITRATE/PF 50 MCG/ML VIAL ONE ×2 (08:20→10:06)
[2023-08-17] MEDS ORDERED: LIDOCAINE HCL/PF 2% SDV 5ML VIAL ONE (08:21)
[2023-08-17] MEDS ORDERED: DEXAMETHASONE SOD PHOSPHATE 4 MG/1 ML VIAL ONE (08:21)
[2023-08-17] MEDS ORDERED: ROCURONIUM BROMIDE 50 MG/5 ML SYRINGE ONE (08:21)
[2023-08-17] MEDS ORDERED: KETOROLAC TROMETHAMINE 30 MG/1 ML VIAL ONE (08:21)
[2023-08-17] MEDS ORDERED: SEVOFLURANE 250 ML BTL ONE (08:21)
[2023-08-17] MEDS: cefOXitin SODIUM 2 GM VIAL (RESTRICTED TO ID) IVPB ONE (09:19)
[2023-08-17] MEDS: BUPIVACAINE HCL/PF 0.25% (2.5MG/ML) 10 ML VIAL IJ ONE ×2 (09:40→09:41)
[2023-08-17] MEDS ORDERED: SUGAMMADEX SODIUM 200 MG/2 ML VIAL ONE (10:05)
[2023-08-17] MEDS: DEXTROSE 5%-NORMAL SALINE 1,000 ML IV SCH (12:40)
[2023-08-17] MEDS: LIPASE/PROTEASE/AMYLASE 36,000 UNIT CAPSULE PO SCH (14:07)
[2023-08-17] MEDS: LACTATED RINGERS SOLUTION 1,000 ML IV SCH (14:08)
[2023-08-17] MEDS: morphine SULFATE 4 MG/ML VIAL IVPUSH PRN (14:48)
[2023-08-17] MEDS: RIFAXIMIN 550 MG TABLET PO SCH (15:42)
[2023-08-17] MEDS: amLODIPine BESYLATE 5 MG TABLET (FP) PO SCH (17:58)
[2023-08-17] MEDS: ATORVASTATIN CA 80 MG TABLET (FP) PO SCH (22:14)
[2023-08-17] MEDS: CARVEDILOL 12.5 MG TABLET (FP) PO SCH (22:14)
[2023-08-18] MEDS: oxyCODONE HCL 5 MG TABLET PO PRN ×2 (05:10→21:48)
[2023-08-18] MEDS: ONDANSETRON 4 MG/2 ML VIAL IVPUSH ONE (05:12)
[2023-08-18 09:22] LABS: BASO % 0.4 % (0-2.0); EOS % 1.2 % (0-4.5); HEMATOCRIT 39.4 % (35.4-49); HEMOGLOBIN 13.4 GM/dL (11.7-16.9); LYMPH % 19.2 % (8-40); MEAN PLT VOLUME 8.2 fl (7.5-11.1); MONO % 9.1 % (3.8-10.2); NEUT % 70.1 % (42.8-82.8); PLATELET COUNT 161 10^3/uL (134-434); RBC 4.19 M/mm3 (4.00-5.60); RDW 14.1 % (11.9-15.9); WHITE BLOOD COUNT 8.8 K/mm3 (4.0-10.0)
[2023-08-18 09:43] LABS: POTASSIUM 3.7 mmol/L (3.5-5.1)
[2023-08-18 09:48] LABS: CALCIUM 8.9 mg/dL (8.5-10.1)
[2023-08-18 09:51] LABS: CREATININE 0.7 mg/dL (0.55-1.3)
[2023-08-18 09:53] LABS: BILIRUBIN,TOTAL 0.6 mg/dL (0.2-1); TOT PROT 5.9 g/dl (6.4-8.2)
[2023-08-18] MEDS: ISOSORBIDE MONONITRATE 30 MG TAB.SR.24H (FP) PO SCH (10:46)
[2023-08-18] MEDS: TAMSULOSIN HCL 0.4 MG CAP PO SCH (10:46)
[2023-08-18] MEDS: PANTOPRAZOLE 40 MG TABLET PO SCH (10:46)
[2023-08-18 15:18] VITALS: BMI 29.9
[2023-08-18] MEDS: BISACODYL 10 MG SUPP.RECT PR ONE (21:47)
[2023-08-18] MEDS: POLYETHYLENE GLYCOL (HEALTHYLAX) 3350 17 GM PACKET PO SCH (21:48)
[2023-08-19 06:30] VITALS: TEMP 98.4
[2023-08-19] MEDS: ONDANSETRON 4 MG/2 ML VIAL IVPUSH PRN (10:34)
[2023-08-19] MEDS: Methylnaltrexone Bromide 12 MG/0.6 ML KIT SQ SCH (13:04)
[2023-08-19 13:16] VITALS: BP 127/58; PULSE 74; RESP 18
== END 2023-08-19 12:45 | DRG 417 ==
LOC: JER 11:15 → JERBED 16:15 → OBSVTOIN 16:16 → J8W 08-13 11:55
PROVIDERS: ADMIT Internal Medicine; ATTEND Internal Medicine
PROC: 0FT44ZZ Resection of Gallbladder, Percutaneous Endoscopic Approach (ICD-10-PCS; principal; 2023-08-17 15:15)
DX: K80.10 Calculus of gallbladder with chronic cholecystitis without obstruction (principal); G92.8 Other toxic encephalopathy; I13.0 Hypertensive heart and chronic kidney disease with heart failure and stage 1 through stage 4 chronic kidney disease, or unspecified chronic kidney disease; K86.1 Other chronic pancreatitis; I50.32 Chronic diastolic (congestive) heart failure; I25.10 Atherosclerotic heart disease of native coronary artery without angina pectoris; E78.5 Hyperlipidemia, unspecified; E11.40 Type 2 diabetes mellitus with diabetic neuropathy, unspecified; K21.9 Gastro-esophageal reflux disease without esophagitis; I11.0 Hypertensive heart disease with heart failure; G20.A1 Parkinson's disease without dyskinesia, without mention of fluctuations; K63.8219 Small intestinal bacterial overgrowth, unspecified; K83.8 Other specified diseases of biliary tract; I48.0 Paroxysmal atrial fibrillation; E03.9 Hypothyroidism, unspecified; N18.9 Chronic kidney disease, unspecified; J44.9 Chronic obstructive pulmonary disease, unspecified; G47.33 Obstructive sleep apnea (adult) (pediatric)
CPT/HCPCS: 36415; 74177-TC; 74181-TC; 76705-TC; 80053; 81003; 82378; 82962; 83605; 83690; 83735; 84100; 84153; 85025; 85027; 85610; 85730; 86301; 86850; 86900; 86901; 87086; 87635; 88304-TC; 93005; 93010; 93306-TC; 94010; 94760; 99285-25; G0378; J0131; J1644; Q9967

== ENCOUNTER 2023-09-09 13:35 | Inpatient (IN) | payer OTHER ==
[2023-09-09 16:04] LABS: BASO % 0.6 % (0-2.0); EOS % 2.6 % (0-4.5); HEMATOCRIT 41.6 % (35.4-49); HEMOGLOBIN 13.9 GM/dL (11.7-16.9); MCH 31.8 pg (25.7-33.7); MCHC 33.4 g/dl (32.0-35.9); MEAN CELL VOLUME 95.3 fl (80-96); MEAN PLT VOLUME 8.4 fl (7.5-11.1); MONO % 7.4 % (3.8-10.2); NEUT % 71.4 % (42.8-82.8); PLATELET COUNT 186 10^3/uL (134-434); RBC 4.37 M/mm3 (4.00-5.60); RDW 13.3 % (11.9-15.9); WHITE BLOOD COUNT 7.6 K/mm3 (4.0-10.0)
[2023-09-09 16:12] LABS: INR 1.44 (0.83-1.09); PROTHROMBIN TIME (PATIENT) 16.7 SEC (9.7-13.0)
[2023-09-09 16:12] LABS: EPI CELLS 2 /uL (0-25.1); HYALINE CASTS 0 /uL (0-3.1); PH,URINE 7.5 (5.0-8.0); URINE APPEARANCE CLOUDY; URINE BACTERIA 63 /uL (0-1359); URINE BILIRUBIN NEGATIVE (NEGATIVE); URINE COLOR YELLOW; URINE GLUCOSE (UA) 3+ (NEGATIVE); URINE KETONE TRACE (NEGATIVE); URINE LEUK ESTERASE 2+ (NEGATIVE); URINE NITRITE NEGATIVE (NEGATIVE); URINE PROTEIN 3+ (NEGATIVE); URINE RBC 41 /uL (0-23.9); URINE UROBILINOGEN 0.2 mg/dL (0.2-1.0); URINE WBC 2989 /uL (0-25.8)
[2023-09-09 16:15] LABS: ACTIVATED PTT 42.1 SECONDS (25.2-36.5)
[2023-09-09 16:36] LABS: POTASSIUM 4.2 mmol/L (3.5-5.1)
[2023-09-09 16:38] LABS: ALBUMIN 3.6 g/dl (3.4-5.0); BLOOD UREA NITROGEN 14.9 mg/dL (7-18)
[2023-09-09 16:41] LABS: CREATININE 0.9 mg/dL (0.55-1.3)
[2023-09-09 16:42] LABS: METHADONE, UR NEGATIVE (NEGATIVE); OPIATES, URI NEGATIVE (NEGATIVE); PHENCYCLIDINE,URINE NEGATIVE (NEGATIVE); URINE BARBITURATES NEGATIVE (NEGATIVE); URINE BENZODIAZEPINES NEGATIVE (NEGATIVE)
[2023-09-09 16:42] LABS: BILIRUBIN,TOTAL 0.7 mg/dL (0.2-1); TOT PROT 7.1 g/dl (6.4-8.2)
[2023-09-09 16:43] LABS: COCAINE, UR NEGATIVE (NEGATIVE); URINE AMPHETAMINES NEGATIVE (NEGATIVE)
[2023-09-09] MEDS ORDERED: oxyCODONE HCL 5 MG TABLET ONE ×2 (16:57→19:40)
[2023-09-09] MEDS ORDERED: cefTRIAXone SODIUM 1 GM VIAL ONE (16:58)
[2023-09-09] MEDS: oxyCODONE HCL 5 MG TABLET PO ONE (17:23)
[2023-09-09] MEDS ORDERED: ACETAMINOPHEN 325 MG TABLET (FP) ONE ×2 (18:38→19:40)
[2023-09-09] MEDS: ACETAMINOPHEN 500 MG TABLET (FP) PO PRN (19:38)
[2023-09-09] MEDS: oxyCODONE HCL 5 MG TABLET PO PRN (19:39)
[2023-09-09] MEDS: diazePAM 2 MG TABLET PO ONE (20:23)
[2023-09-09] MEDS ORDERED: diazePAM 2 MG TABLET ONE (20:24)
[2023-09-09] MEDS: RIFAXIMIN 550 MG TABLET PO SCH (22:41)
[2023-09-09] MEDS: CARVEDILOL 12.5 MG TABLET (FP) PO SCH (22:42)
[2023-09-09] MEDS: POLYETHYLENE GLYCOL (HEALTHYLAX) 3350 17 GM PACKET PO SCH (22:43)
[2023-09-09] MEDS: APIXABAN 5 MG TABLET PO SCH (22:43)
[2023-09-09] MEDS: INSULIN (LEVEMIR) 100 UNITS/ML UNITS SQ SCH (22:43)
[2023-09-09] MEDS: INSULIN (NOVOLOG) ASPART 100 UNITS/ML 10ML VIAL SQ SCH (22:45)
[2023-09-10 00:45] VITALS: BMI 27.6
[2023-09-10 08:25] LABS: POTASSIUM 3.9 mmol/L (3.5-5.1)
[2023-09-10 08:35] LABS: ALBUMIN 3.2 g/dl (3.4-5.0); BASO % 0.6 % (0-2.0); BLOOD UREA NITROGEN 18.7 mg/dL (7-18); EOS % 3.8 % (0-4.5); HEMOGLOBIN 13.2 GM/dL (11.7-16.9); MCH 32.4 pg (25.7-33.7); MCHC 34.6 g/dl (32.0-35.9); MEAN CELL VOLUME 93.4 fl (80-96); MEAN PLT VOLUME 8.3 fl (7.5-11.1); MONO % 10.2 % (3.8-10.2); NEUT % 62.4 % (42.8-82.8); PLATELET COUNT 167 10^3/uL (134-434); RBC 4.07 M/mm3 (4.00-5.60); RDW 13.7 % (11.9-15.9); WHITE BLOOD COUNT 6.4 K/mm3 (4.0-10.0)
[2023-09-10 08:36] LABS: BILIRUBIN,TOTAL 0.4 mg/dL (0.2-1); TOT PROT 6.3 g/dl (6.4-8.2)
[2023-09-10 08:38] LABS: CREATININE 0.9 mg/dL (0.55-1.3)
[2023-09-10] MEDS: TAMSULOSIN HCL 0.4 MG CAP PO SCH (08:54)
[2023-09-10] MEDS: ATORVASTATIN CA 80 MG TABLET (FP) PO SCH (10:25)
[2023-09-10] MEDS: EMPAGLIFLOZIN (JARDIANCE) 10 MG TABLET PO SCH (10:25)
[2023-09-10] MEDS: ISOSORBIDE MONONITRATE 30 MG TAB.SR.24H (FP) PO SCH (10:25)
[2023-09-10] MEDS: amLODIPine BESYLATE 5 MG TABLET (FP) PO SCH (10:25)
[2023-09-10] MEDS: FUROSEMIDE 40 MG TABLET (FP) PO SCH (10:25)
[2023-09-10] MEDS: PANTOPRAZOLE 40 MG TABLET PO SCH (10:26)
[2023-09-10] MEDS: SIMETHICONE 80 MG TAB.CHEW (FP) PO PRN (14:14)
[2023-09-10] MEDS: CEFTRIAXONE 2 GM in DEXTROSE 5%-WATER 100 ML IVPB SCH (17:46)
[2023-09-10] MEDS: ACETAMINOPHEN 500 MG TABLET (FP) PO PRN (23:25)
[2023-09-11] MEDS: ACETAMINOPHEN 325 MG TABLET (FP) PO PRN (06:15)
[2023-09-11] MEDS: oxyCODONE HCL 5 MG TABLET PO PRN (12:03)
[2023-09-11] MEDS: ONDANSETRON *ODT* 4 MG TABLET SL PRN (12:04)
[2023-09-11] MEDS: Methylnaltrexone Bromide 12 MG/0.6 ML KIT SQ SCH (13:30)
[2023-09-11] MEDS ORDERED: INSULIN ASPART SLIDING SCALE (NOVOLOG) 1 VIAL SQ ONE (18:26)
[2023-09-12] MEDS: CYCLOBENZAPRINE HCL 5 MG TABLET PO PRN (11:54)
[2023-09-13] MEDS: SODIUM PHOSPHATE/NA BIPHOS 133 ML ENEMA RC ONE (01:01)
[2023-09-13] MEDS ORDERED: INSULIN ASPART SLIDING SCALE (NOVOLOG) 1 VIAL SQ ONE (16:32)
[2023-09-14] MEDS: SENNOSIDES 8.6MG TABLET (FP) PO PRN (02:40)
[2023-09-14 10:23] VITALS: RESP 20
[2023-09-14] MEDS: oxyCODONE HCL 5 MG TABLET PO PRN (12:40)
[2023-09-14] MEDS: FLUTICASONE PROP 0.05% 16 GM NASAL SPRAY NS SCH (13:44)
[2023-09-15 02:16] VITALS: BP 97/61; PULSE 66; TEMP 98.7
== END 2023-09-15 02:45 | DRG 552 ==
LOC: JER 13:35 → JERBED 15:51 → OBSVTOIN 18:26 → J6S 21:48
PROVIDERS: ADMIT Internal Medicine; ATTEND Internal Medicine
DX: M54.17 Radiculopathy, lumbosacral region (principal); M48.061 Spinal stenosis, lumbar region without neurogenic claudication; M54.9 Dorsalgia, unspecified; R26.2 Difficulty in walking, not elsewhere classified; E11.51 Type 2 diabetes mellitus with diabetic peripheral angiopathy without gangrene; I11.0 Hypertensive heart disease with heart failure; J44.9 Chronic obstructive pulmonary disease, unspecified; E03.9 Hypothyroidism, unspecified; G20.A1 Parkinson's disease without dyskinesia, without mention of fluctuations; N31.9 Neuromuscular dysfunction of bladder, unspecified; E11.40 Type 2 diabetes mellitus with diabetic neuropathy, unspecified; K21.9 Gastro-esophageal reflux disease without esophagitis; E78.5 Hyperlipidemia, unspecified; I50.9 Heart failure, unspecified
CPT/HCPCS: 36415; 72148-TC; 72170-TC-FY; 73521-TC-FY; 73590-TC-RT-FY; 73610-TC-RT-FY; 73630-TC-RT-FY; 80053; 80307; 81003; 82962; 84443; 85025; 85610; 85730; 87040; 87086; 87635; 93005; 93010; 97162-GP; 99285-25; G0378; Q0162

== ENCOUNTER 2024-01-10 09:15 | Inpatient (IN) | payer OTHER, BC ==
[2024-01-10] MEDS: DEXTROSE 50%-WATER - 25 GM/50 ML VIAL IVPUSH ONE ×2 (10:01→10:29)
[2024-01-10] MEDS: SODIUM CHLORIDE 0.9% 500 ML INFUS.BAG IV ONE (10:01)
[2024-01-10 10:20] LABS: BASO % 0.3 % (0-2.0); EOS % 0.5 % (0-4.5); HEMATOCRIT 20.4 % (35.4-49); HEMOGLOBIN 6.5 GM/dL (11.7-16.9); LYMPH % 4.6 % (8-40); MCH 30.1 pg (25.7-33.7); MEAN CELL VOLUME 93.9 fl (80-96); MEAN PLT VOLUME 6.2 fl (7.5-11.1); NEUT % 88.6 % (42.8-82.8); PLATELET COUNT 325 10^3/uL (134-434); RBC 2.17 M/mm3 (4.00-5.60); RDW 14.9 % (11.9-15.9); WHITE BLOOD COUNT 10.2 K/mm3 (4.0-10.0)
[2024-01-10 10:43] LABS: POTASSIUM 4.2 mmol/L (3.5-5.1)
[2024-01-10 10:46] LABS: ALBUMIN 1.6 g/dl (3.4-5.0); BLOOD UREA NITROGEN 45.6 mg/dL (7-18); CALCIUM 8.4 mg/dL (8.5-10.1)
[2024-01-10 10:50] LABS: BILIRUBIN,TOTAL 0.3 mg/dL (0.2-1); TOT PROT 6.2 g/dl (6.4-8.2)
[2024-01-10] MEDS ORDERED: FERROUS SO4 325 MG TABLET (FP) ONE (15:17)
[2024-01-10] MEDS: DEXTROSE 5%-0.45% SALINE 1,000 ML IV SCH ×2 (15:30→15:52)
[2024-01-10] MEDS: INSULIN ASPART SLIDING SCALE (NOVOLOG) 1 VIAL SQ SCH (15:51)
[2024-01-10] MEDS: FERROUS GLUCONATE 324 MG TAB (FP) PO SCH (15:51)
[2024-01-10 16:23] LABS: EPI CELLS 4 /uL (0-25.1); HYALINE CASTS 2 /uL (0-3.1); PH,URINE 6.5 (5.0-8.0); URINE APPEARANCE TURBID; URINE BACTERIA 259 /uL (0-1359); URINE BILIRUBIN NEGATIVE (NEGATIVE); URINE COLOR YELLOW; URINE GLUCOSE (UA) TRACE (NEGATIVE); URINE KETONE NEGATIVE (NEGATIVE); URINE LEUK ESTERASE 3+ (NEGATIVE); URINE NITRITE NEGATIVE (NEGATIVE); URINE PROTEIN 2+ (NEGATIVE); URINE UROBILINOGEN 0.2 mg/dL (0.2-1.0); URINE WBC 4646 /uL (0-25.8)
[2024-01-10 16:26] LABS: URINE RBC 68.4 /uL (0-23.9); YEAST NEGATIVE (NEGATIVE)
[2024-01-10] MEDS: APIXABAN 5 MG TABLET PO SCH (22:47)
[2024-01-10] MEDS: RIFAXIMIN 550 MG TABLET PO SCH (22:47)
[2024-01-11] MEDS: ATORVASTATIN CA 80 MG TABLET (FP) PO SCH (09:19)
[2024-01-11] MEDS: TAMSULOSIN HCL 0.4 MG CAP PO SCH (09:19)
[2024-01-11] MEDS: amLODIPine BESYLATE 5 MG TABLET (FP) PO SCH (09:19)
[2024-01-11] MEDS: EMPAGLIFLOZIN (JARDIANCE) 10 MG TABLET PO SCH (09:20)
[2024-01-11 09:41] LABS: HEMATOCRIT 20.7 % (35.4-49); MCH 29.8 pg (25.7-33.7); MCHC 32.9 g/dl (32.0-35.9); MEAN CELL VOLUME 90.7 fl (80-96); MEAN PLT VOLUME 6.3 fl (7.5-11.1); PLATELET COUNT 318 10^3/uL (134-434); RBC 2.28 M/mm3 (4.00-5.60); RDW 16.1 % (11.9-15.9)
[2024-01-11 10:01] LABS: POTASSIUM 3.8 mmol/L (3.5-5.1)
[2024-01-11 10:07] LABS: ALBUMIN 1.5 g/dl (3.4-5.0); BLOOD UREA NITROGEN 36.5 mg/dL (7-18); CALCIUM 8.1 mg/dL (8.5-10.1)
[2024-01-11 10:10] LABS: CREATININE 1.9 mg/dL (0.55-1.3); HEMOGLOBIN 6.8 GM/dL (11.7-16.9)
[2024-01-11 10:12] LABS: BILIRUBIN,TOTAL 0.3 mg/dL (0.2-1); TOT PROT 5.4 g/dl (6.4-8.2)
[2024-01-11] MEDS: ACETAMINOPHEN 325 MG TABLET (FP) PO ONE (21:41)
[2024-01-12 09:42] LABS: BASO % 0.3 % (0-2.0); EOS % 0.5 % (0-4.5); HEMATOCRIT 24.2 % (35.4-49); HEMOGLOBIN 8.2 GM/dL (11.7-16.9); LYMPH % 9.6 % (8-40); MCH 30.6 pg (25.7-33.7); MCHC 33.7 g/dl (32.0-35.9); MEAN CELL VOLUME 90.9 fl (80-96); MEAN PLT VOLUME 6.8 fl (7.5-11.1); NEUT % 79.6 % (42.8-82.8); PLATELET COUNT 291 10^3/uL (134-434); RBC 2.66 M/mm3 (4.00-5.60); RDW 15.3 % (11.9-15.9); WHITE BLOOD COUNT 8.3 K/mm3 (4.0-10.0)
[2024-01-12 10:15] LABS: POTASSIUM 4.2 mmol/L (3.5-5.1)
[2024-01-12 10:29] LABS: ALBUMIN 1.4 g/dl (3.4-5.0)
[2024-01-12 10:32] LABS: CREATININE 1.7 mg/dL (0.55-1.3)
[2024-01-12 10:34] LABS: BILIRUBIN,TOTAL 0.4 mg/dL (0.2-1); TOT PROT 5.2 g/dl (6.4-8.2)
[2024-01-12 16:02] VITALS: RESP 18
[2024-01-12] MEDS: ATORVASTATIN CA 80 MG TABLET (FP) PO SCH (23:00)
[2024-01-12] MEDS: buPROPion HCL 75 MG TABLET PO SCH (23:00)
[2024-01-13] MEDS: EMPAGLIFLOZIN (JARDIANCE) 10 MG TABLET PO SCH (07:33)
[2024-01-13] MEDS: TAMSULOSIN HCL 0.4 MG CAP PO SCH (09:18)
[2024-01-13] MEDS: ACETAMINOPHEN 325 MG TABLET (FP) PO ONE (22:03)
[2024-01-14 09:47] LABS: BASO % 0.3 % (0-2.0); EOS % 1.3 % (0-4.5); HEMATOCRIT 21.6 % (35.4-49); HEMOGLOBIN 7.1 GM/dL (11.7-16.9); LYMPH % 10.1 % (8-40); MCH 29.9 pg (25.7-33.7); MCHC 32.9 g/dl (32.0-35.9); MEAN CELL VOLUME 90.8 fl (80-96); MEAN PLT VOLUME 6.8 fl (7.5-11.1); MONO % 9.7 % (3.8-10.2); NEUT % 78.6 % (42.8-82.8); PLATELET COUNT 262 10^3/uL (134-434); RBC 2.38 M/mm3 (4.00-5.60); RDW 15.2 % (11.9-15.9); WHITE BLOOD COUNT 8.2 K/mm3 (4.0-10.0)
[2024-01-14 10:10] LABS: POTASSIUM 3.9 mmol/L (3.5-5.1)
[2024-01-14 10:13] LABS: BLOOD UREA NITROGEN 24.4 mg/dL (7-18); CALCIUM 7.6 mg/dL (8.5-10.1)
[2024-01-14 10:14] LABS: ALBUMIN 1.3 g/dl (3.4-5.0)
[2024-01-14 10:17] LABS: CREATININE 1.3 mg/dL (0.55-1.3)
[2024-01-14 10:18] LABS: BILIRUBIN,TOTAL 0.2 mg/dL (0.2-1); TOT PROT 4.8 g/dl (6.4-8.2)
[2024-01-14] MEDS ORDERED: INSULIN ASPART SLIDING SCALE (NOVOLOG) 1 VIAL SQ ONE ×2 (11:17→17:19)
[2024-01-14 15:50] VITALS: BMI 27.2
[2024-01-15] MEDS: FAMOTIDINE 20 MG TABLET PO ONE (04:08)
[2024-01-15] MEDS: AMINO ACIDS/PROTEIN HYDROLYS 30 ML LIQUID.PKT PO SCH (09:14)
[2024-01-15 15:45] VITALS: BP 119/62; PULSE 79
[2024-01-15 17:42] VITALS: TEMP 98.1
== END 2024-01-15 17:57 | DRG 638 ==
LOC: JER 09:15 → JERBED 13:13 → J8W 21:05
PROVIDERS: ADMIT Internal Medicine; ATTEND Internal Medicine
PROC: 30233N1 Transfusion of Nonautologous Red Blood Cells into Peripheral Vein, Percutaneous Approach (ICD-10-PCS; principal; 2024-01-10)
DX: E11.649 Type 2 diabetes mellitus with hypoglycemia without coma (principal); I13.0 Hypertensive heart and chronic kidney disease with heart failure and stage 1 through stage 4 chronic kidney disease, or unspecified chronic kidney disease; I50.30 Unspecified diastolic (congestive) heart failure; G20.A1 Parkinson's disease without dyskinesia, without mention of fluctuations; I48.0 Paroxysmal atrial fibrillation; I25.10 Atherosclerotic heart disease of native coronary artery without angina pectoris; J44.9 Chronic obstructive pulmonary disease, unspecified; E03.9 Hypothyroidism, unspecified; G47.33 Obstructive sleep apnea (adult) (pediatric); M54.12 Radiculopathy, cervical region; M54.16 Radiculopathy, lumbar region; R31.9 Hematuria, unspecified; E11.40 Type 2 diabetes mellitus with diabetic neuropathy, unspecified
CPT/HCPCS: 36415; 36430; 71045-TC-FY; 76775-TC; 80053; 80061; 81003; 82140; 82272; 82728; 82962; 83036; 83540; 83550; 83735; 83880; 85025; 85027; 85045; 86850; 86900; 86901; 86922; 87086; 93005; 93010; 97116-GP; 97161-GP; 99285-25; P9038; P9058